=== PATIENT | male | born 1995 | race African-American/Black ===

== ENCOUNTER 2017-11-06 02:42 | Emergency (ER) | payer SELFPAY ==
[2017-11-06 03:16] LABS: ADD MAN DIFF? NO
[2017-11-06] MEDS: ONDANSETRON PF 4 MG/2 ML VIAL. IV (03:18)
[2017-11-06 03:19] LABS: BASO # 0.1 x10^3/uL (0.0-0.2); BASO % 1 % (0-3); EOS # 0.1 x10^3/uL (0.0-0.7); EOS % 1 % (0-3); HEMOGLOBIN 8.7 g/dL (13.0-17.5); LYMPH # 1.7 x10^3/uL (1.0-4.8); LYMPH % 16 % (24-48); MEAN CORPUSCULAR HEMOGLOBIN 30 pg (25-35); MEAN CORPUSCULAR HGB CONC 35 g/dL (31-37); MEAN CORPUSCULAR VOLUME 86 fL (79-100); MONO # 1.4 x10^3/uL (0.0-1.1); MONO % 13 % (0-9); NEUT # 7.9 x10^3uL (1.8-7.7); NEUT % 70 % (31-73); PLATELET COUNT 642 x10^3/uL (140-400); RED CELL DISTRIBUTION WIDTH 21.8 % (11.5-14.5); WHITE BLOOD COUNT 11.2 x10^3/uL (4.0-11.0)
[2017-11-06] MEDS: fentaNYL PF VIAL 100 MCG/2 ML VIAL IV ×2 (03:19→04:53)
[2017-11-06] MEDS: IV NORMAL SALINE 1000ML BAG 1,000 ML IV (03:22)
[2017-11-06 03:32] LABS: ETHANOL < 10 mg/dL (0-10)
[2017-11-06 03:35] LABS: ALBUMIN 3.4 g/dL (3.4-5.0); ALBUMIN/GLOBULIN RATIO 0.9 (1.0-1.7); ALK PHOS 130 U/L (46-116); ALT (SGPT) 20 U/L (16-63); ANION GAP 10 (6-14); AST (SGOT) 23 U/L (15-37); BLOOD UREA NITROGEN 3 mg/dL (8-26); BUN/CREATININE RATIO 5 (6-20); CALCIUM 8.9 mg/dL (8.5-10.1); CARBON DIOXIDE 26 mmol/L (21-32); CHLORIDE 101 mmol/L (98-107); CREATININE 0.6 mg/dL (0.7-1.3); GFR 171.8; GLUCOSE 125 mg/dL (70-99); LIPASE 58 U/L (73-393); SODIUM 137 mmol/L (136-145); TOTAL BILIRUBIN 1.6 mg/dL (0.2-1.0); TOTAL PROTEIN 7.4 g/dL (6.4-8.2)
[2017-11-06 03:38] LABS: POTASSIUM 2.9 mmol/L (3.5-5.1)
[2017-11-06 03:40] LABS: BILIRUBIN,URINE NEGATIVE (NEG); CLARITY,URINE CLEAR; COLOR,URINE YELLOW; GLUCOSE,URINE NEGATIVE (NEG); NITRITE,URINE NEGATIVE (NEG); PH,URINE 6.5; PROTEIN,URINE NEGATIVE (NEG-TRACE)
[2017-11-06 03:42] LABS: ANISOCYTOSIS MOD; MICROCYTOSIS SLIGHT; PLT ESTIMATE INCREASED (ADEQUATE); POLYCHROMASIA SLIGHT
[2017-11-06 03:43] LABS: SCHISTOCYTES OCC; SICKLE CELLS MOD; TARGET CELLS MOD; TEAR DROP CELLS FEW
[2017-11-06 03:45] LABS: BACTERIA,URINE 0 /HPF (0-FEW); RBC,URINE 0 /HPF (0-2); SQUAMOUS EPITHELIAL CELL,UR FEW /LPF
[2017-11-06 03:47] LABS: BARBITURATES NEG (NEG); BENZODIAZEPINES NEG (NEG); CANNABINOIDS POS (NEG); COCAINE NEG (NEG); METHADONE NEG (NEG); OPIATES POS (NEG); PHENCYCLIDINE NEG (NEG)
[2017-11-06 03:49] LABS: AMPHETAMINE/METHAMPHETAMINE NEG (NEG); ETHANOL, URINE NEG (NEG)
[2017-11-06 04:31] LABS: RETIC COUNT 1.8 % (0.5-2.5)
== END 2017-11-06 05:15 | disposition home or self-care (01) ==
LOC: ER 02:42
DX: D57.00 Hb-SS disease with crisis, unspecified (principal); F12.10 Cannabis abuse, uncomplicated
CPT/HCPCS: 36415; 80053; 80307; 81001; 83690; 85025; 85045; 96361; 96374; 96375; 96376; 99284-25; G0480; J2405; J3010; J7030

== ENCOUNTER 2017-11-06 19:24 | Emergency (ER) | payer SELFPAY ==
[2017-11-06 20:03] LABS: ADD MAN DIFF? NO
[2017-11-06] MEDS: MORPHINE SULFATE 10 MG/ML VIAL. IV (20:03)
[2017-11-06] MEDS: ONDANSETRON PF 4 MG/2 ML VIAL. IV (20:03)
[2017-11-06] MEDS: IV NORMAL SALINE 1000ML BAG 1,000 ML IV (20:03)
[2017-11-06 20:07] LABS: BASO # 0.1 x10^3/uL (0.0-0.2); BASO % 1 % (0-3); EOS % 0 % (0-3); HEMATOCRIT 25.1 % (39.0-53.0); HEMOGLOBIN 8.8 g/dL (13.0-17.5); LYMPH # 1.9 x10^3/uL (1.0-4.8); LYMPH % 18 % (24-48); MEAN CORPUSCULAR HEMOGLOBIN 30 pg (25-35); MEAN CORPUSCULAR HGB CONC 35 g/dL (31-37); MEAN CORPUSCULAR VOLUME 87 fL (79-100); MONO # 1.1 x10^3/uL (0.0-1.1); MONO % 11 % (0-9); NEUT # 7.4 x10^3uL (1.8-7.7); NEUT % 70 % (31-73); PLATELET COUNT 659 x10^3/uL (140-400); RED BLOOD COUNT 2.89 x10^6/uL (4.30-5.70); RED CELL DISTRIBUTION WIDTH 21.8 % (11.5-14.5); WHITE BLOOD COUNT 10.5 x10^3/uL (4.0-11.0)
[2017-11-06 20:08] LABS: RETIC COUNT 1.4 % (0.5-2.5)
[2017-11-06 20:12] LABS: ANION GAP 10 (6-14); BLOOD UREA NITROGEN 3 mg/dL (8-26); CALCIUM 9.1 mg/dL (8.5-10.1); CARBON DIOXIDE 29 mmol/L (21-32); CHLORIDE 102 mmol/L (98-107); CREATININE 0.5 mg/dL (0.7-1.3); GFR 256.5; GLUCOSE 100 mg/dL (70-99); POTASSIUM 3.2 mmol/L (3.5-5.1); SODIUM 141 mmol/L (136-145)
[2017-11-06 20:17] LABS: LACTATE DEHYDROGENASE 686 U/L (85-227)
[2017-11-06 20:40] LABS: PLT ESTIMATE INCREASED (ADEQUATE)
[2017-11-06 20:44] LABS: ANISOCYTOSIS MOD
[2017-11-06 20:45] LABS: POLYCHROMASIA PRESENT; SICKLE CELLS PRESENT
[2017-11-06 20:46] LABS: TARGET CELLS PRESENT
[2017-11-06 20:55] LABS: POIKILOCYTOSIS MOD; SCHISTOCYTES FEW; TEAR DROP CELLS OCC
[2017-11-06] MEDS: oxyCODONE/APAP 5/325 1 TAB TABLET PO (21:11)
== END 2017-11-06 21:10 | disposition home or self-care (01) ==
LOC: ER 19:24
DX: M54.6 Pain in thoracic spine (principal); F12.10 Cannabis abuse, uncomplicated
CPT/HCPCS: 36415; 80048; 83615; 85025; 85045; 96361; 96374; 96375; 99284-25; J2270; J2405; J7030

== ENCOUNTER 2017-11-13 17:56 | Emergency (ER) | payer SELFPAY ==
[2017-11-13 18:22] LABS: BASO # 0.1 x10^3/uL (0.0-0.2); BASO % 1 % (0-3); EOS % 0 % (0-3); HEMATOCRIT 24.7 % (39.0-53.0); HEMOGLOBIN 8.8 g/dL (13.0-17.5); LYMPH # 2.7 x10^3/uL (1.0-4.8); LYMPH % 27 % (24-48); MEAN CORPUSCULAR HEMOGLOBIN 31 pg (25-35); MEAN CORPUSCULAR HGB CONC 36 g/dL (31-37); MEAN CORPUSCULAR VOLUME 87 fL (79-100); MONO # 0.8 x10^3/uL (0.0-1.1); MONO % 8 % (0-9); NEUT # 6.4 x10^3uL (1.8-7.7); NEUT % 64 % (31-73); PLATELET COUNT 653 x10^3/uL (140-400); RED BLOOD COUNT 2.85 x10^6/uL (4.30-5.70); RETIC COUNT 3.6 % (0.5-2.5)
[2017-11-13 18:27] LABS: ADD MAN DIFF? NO
[2017-11-13] MEDS: ONDANSETRON PF 4 MG/2 ML VIAL. IV (18:41)
[2017-11-13] MEDS: fentaNYL PF VIAL 100 MCG/2 ML VIAL IV ×2 (18:42→19:39)
[2017-11-13 18:48] LABS: ANISOCYTOSIS MOD; PLT ESTIMATE INCREASED (ADEQUATE); POLYCHROMASIA SLIGHT; SCHISTOCYTES FEW; SICKLE CELLS FEW; TARGET CELLS FEW
[2017-11-13 18:51] LABS: ANION GAP 8 (6-14); BLOOD UREA NITROGEN 7 mg/dL (8-26); BUN/CREATININE RATIO 9 (6-20); CALCIUM 8.7 mg/dL (8.5-10.1); CARBON DIOXIDE 27 mmol/L (21-32); CHLORIDE 106 mmol/L (98-107); CREATININE 0.8 mg/dL (0.7-1.3); GFR 149.1; GLUCOSE 106 mg/dL (70-99); POTASSIUM 3.8 mmol/L (3.5-5.1); SODIUM 141 mmol/L (136-145)
[2017-11-13 18:55] LABS: ALBUMIN 3.7 g/dL (3.4-5.0); ALBUMIN/GLOBULIN RATIO 0.9 (1.0-1.7); ALK PHOS 145 U/L (46-116); ALT (SGPT) 14 U/L (16-63); AST (SGOT) 42 U/L (15-37); TOTAL BILIRUBIN 1.7 mg/dL (0.2-1.0); TOTAL PROTEIN 7.7 g/dL (6.4-8.2)
[2017-11-13 18:57] LABS: BILIRUBIN,URINE NEGATIVE (NEG); CLARITY,URINE CLEAR; COLOR,URINE YELLOW; GLUCOSE,URINE NEGATIVE (NEG); NITRITE,URINE NEGATIVE (NEG); PH,URINE 8.5; PROTEIN,URINE NEGATIVE (NEG-TRACE)
[2017-11-13 19:13] LABS: BACTERIA,URINE 0 /HPF (0-FEW); RBC,URINE 0 /HPF (0-2); WBC,URINE 0 /HPF (0-4)
[2017-11-13] MEDS: oxyCODONE IR 5 MG TABLET PO (19:21)
== END 2017-11-13 20:27 | disposition home or self-care (01) ==
LOC: ER 17:56
DX: D57.00 Hb-SS disease with crisis, unspecified (principal); F12.10 Cannabis abuse, uncomplicated
CPT/HCPCS: 36415; 80053; 81001; 85025; 85045; 96374; 96375; 96376; 99284-25; J2405; J3010

== ENCOUNTER 2017-12-04 08:04 | Emergency (ER) | payer SELFPAY ==
[2017-12-04 08:56] LABS: BILIRUBIN,URINE NEGATIVE (NEG); CLARITY,URINE CLEAR; COLOR,URINE AMBER; GLUCOSE,URINE NEGATIVE (NEG); NITRITE,URINE NEGATIVE (NEG); PROTEIN,URINE NEGATIVE (NEG-TRACE)
[2017-12-04 08:58] LABS: ADD MAN DIFF? NO
[2017-12-04] MEDS: fentaNYL PF VIAL 100 MCG/2 ML VIAL IV ×2 (09:02→10:54)
[2017-12-04] MEDS: ONDANSETRON PF 4 MG/2 ML VIAL. IV (09:02)
[2017-12-04] MEDS: IV NORMAL SALINE 1000ML BAG 1,000 ML IV (09:02)
[2017-12-04 09:05] LABS: BASO # 0.1 x10^3/uL (0.0-0.2); BASO % 1 % (0-3); EOS # 0.1 x10^3/uL (0.0-0.7); EOS % 2 % (0-3); HEMATOCRIT 25.4 % (39.0-53.0); HEMOGLOBIN 9.1 g/dL (13.0-17.5); LYMPH % 37 % (24-48); MEAN CORPUSCULAR HEMOGLOBIN 32 pg (25-35); MEAN CORPUSCULAR HGB CONC 36 g/dL (31-37); MEAN CORPUSCULAR VOLUME 90 fL (79-100); MONO # 0.7 x10^3/uL (0.0-1.1); MONO % 13 % (0-9); NEUT # 2.5 x10^3uL (1.8-7.7); NEUT % 47 % (31-73); PLATELET COUNT 427 x10^3/uL (140-400); RED BLOOD COUNT 2.84 x10^6/uL (4.30-5.70); RED CELL DISTRIBUTION WIDTH 25.4 % (11.5-14.5); WHITE BLOOD COUNT 5.4 x10^3/uL (4.0-11.0)
[2017-12-04 09:10] LABS: AMORPHOUS SEDIMENT,UR PRESENT /HPF; BACTERIA,URINE 0 /HPF (0-FEW); HYALINE CASTS, URINE FEW /HPF; RBC,URINE 0 /HPF (0-2); SQUAMOUS EPITHELIAL CELL,UR MOD /LPF; WBC,URINE 0 /HPF (0-4)
[2017-12-04 09:14] LABS: RETIC COUNT 1.9 % (0.5-2.5)
[2017-12-04 09:17] LABS: ANION GAP 11 (6-14); BLOOD UREA NITROGEN 7 mg/dL (8-26); BUN/CREATININE RATIO 12 (6-20); CALCIUM 9.1 mg/dL (8.5-10.1); CARBON DIOXIDE 24 mmol/L (21-32); CHLORIDE 104 mmol/L (98-107); CREATININE 0.6 mg/dL (0.7-1.3); GFR 207.8; GLUCOSE 113 mg/dL (70-99); POTASSIUM 3.5 mmol/L (3.5-5.1); SODIUM 139 mmol/L (136-145)
[2017-12-04 09:22] LABS: ALBUMIN 4.2 g/dL (3.4-5.0); ALBUMIN/GLOBULIN RATIO 1.1 (1.0-1.7); ALK PHOS 146 U/L (46-116); ALT (SGPT) 27 U/L (16-63); AST (SGOT) 45 U/L (15-37); TOTAL BILIRUBIN 2.5 mg/dL (0.2-1.0); TOTAL PROTEIN 8.1 g/dL (6.4-8.2)
[2017-12-04 10:46] LABS: PLT ESTIMATE INCREASED (ADEQUATE)
[2017-12-04 10:47] LABS: ANISOCYTOSIS MOD; OVALOCYTES PRESENT; POIKILOCYTOSIS MOD; SICKLE CELLS PRESENT; TARGET CELLS PRESENT
[2017-12-04 10:48] LABS: SCHISTOCYTES OCC
== END 2017-12-04 11:06 | disposition home or self-care (01) ==
LOC: ER 08:04
DX: D57.00 Hb-SS disease with crisis, unspecified (principal); F12.10 Cannabis abuse, uncomplicated; M54.5 Low back pain
CPT/HCPCS: 36415; 80053; 81001; 85025; 85045; 96361; 96374; 96375; 96376; 99284-25; J2405; J3010; J7030

== ENCOUNTER 2017-12-07 16:39 | Emergency (ER) | payer SELFPAY ==
[2017-12-07 18:00] LABS: BILIRUBIN,URINE NEGATIVE (NEG); CLARITY,URINE CLEAR; COLOR,URINE YELLOW; GLUCOSE,URINE NEGATIVE (NEG); NITRITE,URINE NEGATIVE (NEG); PROTEIN,URINE NEGATIVE (NEG-TRACE); UROBILINOGEN,URINE 0.2 mg/dL (0.2 mg/dL)
[2017-12-07 18:08] LABS: BASO # 0.1 x10^3/uL (0.0-0.2); BASO % 1 % (0-3); EOS # 0.1 x10^3/uL (0.0-0.7); EOS % 2 % (0-3); HEMATOCRIT 23.5 % (39.0-53.0); HEMOGLOBIN 8.5 g/dL (13.0-17.5); LYMPH # 2.4 x10^3/uL (1.0-4.8); LYMPH % 47 % (24-48); MEAN CORPUSCULAR HEMOGLOBIN 33 pg (25-35); MEAN CORPUSCULAR HGB CONC 36 g/dL (31-37); MEAN CORPUSCULAR VOLUME 91 fL (79-100); MONO # 0.9 x10^3/uL (0.0-1.1); MONO % 18 % (0-9); NEUT # 1.5 x10^3uL (1.8-7.7); NEUT % 31 % (31-73); PLATELET COUNT 375 x10^3/uL (140-400); RED BLOOD COUNT 2.59 x10^6/uL (4.30-5.70)
[2017-12-07] MEDS: IV NORMAL SALINE 1000ML BAG 1,000 ML IV (18:10)
[2017-12-07 18:11] LABS: BACTERIA,URINE 0 /HPF (0-FEW); RBC,URINE 0 /HPF (0-2); SQUAMOUS EPITHELIAL CELL,UR FEW /LPF; WBC,URINE OCC /HPF (0-4)
[2017-12-07] MEDS: ONDANSETRON PF 4 MG/2 ML VIAL. IV (18:11)
[2017-12-07 18:12] LABS: RETIC COUNT 1.9 % (0.5-2.5)
[2017-12-07] MEDS: MORPHINE SULFATE 4 MG/ML DISP.SYRIN. IV/SQ (18:12)
[2017-12-07 18:13] LABS: ADD MAN DIFF? YES
[2017-12-07 18:17] LABS: ANION GAP 8 (6-14); BLOOD UREA NITROGEN 4 mg/dL (8-26); BUN/CREATININE RATIO 7 (6-20); CALCIUM 8.7 mg/dL (8.5-10.1); CARBON DIOXIDE 26 mmol/L (21-32); CHLORIDE 107 mmol/L (98-107); CREATININE 0.6 mg/dL (0.7-1.3); GFR 207.8; GLUCOSE 90 mg/dL (70-99); POTASSIUM 3.5 mmol/L (3.5-5.1); SODIUM 141 mmol/L (136-145)
[2017-12-07 18:25] LABS: ALBUMIN 3.8 g/dL (3.4-5.0); ALBUMIN/GLOBULIN RATIO 1.2 (1.0-1.7); ALK PHOS 126 U/L (46-116); ALT (SGPT) 18 U/L (16-63); AST (SGOT) 37 U/L (15-37); TOTAL BILIRUBIN 2.1 mg/dL (0.2-1.0)
[2017-12-07] MEDS: oxyCODONE/APAP 5/325 1 TAB TABLET PO (19:42)
[2017-12-07 20:05] LABS: % EOS 1 % (0-5); % LYMPHS 53 % (24-48); % MONOS 15 % (0-10); % SEGS 31 % (35-66)
[2017-12-07 20:16] LABS: PLT ESTIMATE ADEQUATE (ADEQUATE)
[2017-12-07 20:17] LABS: ANISOCYTOSIS MOD; OVALOCYTES FEW; POIKILOCYTOSIS MOD
[2017-12-07 20:27] LABS: SICKLE CELLS MOD; TARGET CELLS FEW
== END 2017-12-07 19:42 | disposition home or self-care (01) ==
LOC: ER 16:39
DX: D57.00 Hb-SS disease with crisis, unspecified (principal); F12.10 Cannabis abuse, uncomplicated
CPT/HCPCS: 36415; 80053; 81001; 85007; 85025; 85045; 96361; 96374; 96375; 99285-25; J2270; J2405; J7030

== ENCOUNTER 2017-12-15 10:33 | Emergency (ER) | payer SELFPAY ==
[2017-12-15] MEDS: fentaNYL PF VIAL 100 MCG/2 ML VIAL IM (11:02)
== END 2017-12-15 11:06 | disposition home or self-care (01) ==
LOC: ER 10:33
DX: M54.5 Low back pain (principal); D57.00 Hb-SS disease with crisis, unspecified; F12.10 Cannabis abuse, uncomplicated
CPT/HCPCS: 96372; 99283; J3010

== ENCOUNTER 2018-01-05 16:41 | Emergency (ER) | payer BC ==
[2018-01-05] MEDS: fentaNYL PF VIAL 100 MCG/2 ML VIAL IV ×2 (18:04→19:00)
== END 2018-01-05 19:36 | disposition home or self-care (01) ==
LOC: ER 16:41
DX: M54.5 Low back pain (principal); G89.29 Other chronic pain; D57.1 Sickle-cell disease without crisis; F12.10 Cannabis abuse, uncomplicated
CPT/HCPCS: 96374; 96376; 99284-25; J3010

== ENCOUNTER 2018-01-17 10:16 | Emergency (ER) | payer BC ==
[2018-01-17] MEDS: ONDANSETRON PF 4 MG/2 ML VIAL. IV (11:04)
[2018-01-17] MEDS: MORPHINE SULFATE 10 MG/ML VIAL. IV (11:04)
[2018-01-17 11:05] LABS: BARBITURATES NEG (NEG); BENZODIAZEPINES NEG (NEG); BILIRUBIN,URINE NEGATIVE (NEG); CANNABINOIDS POS (NEG); CLARITY,URINE CLEAR; COCAINE NEG (NEG); COLOR,URINE AMBER; GLUCOSE,URINE NEGATIVE (NEG); METHADONE NEG (NEG); NITRITE,URINE NEGATIVE (NEG); OPIATES NEG (NEG); PHENCYCLIDINE NEG (NEG); PROTEIN,URINE NEGATIVE (NEG-TRACE)
[2018-01-17] MEDS: IV NORMAL SALINE 1000ML BAG 1,000 ML IV (11:05)
[2018-01-17 11:06] LABS: AMPHETAMINE/METHAMPHETAMINE NEG (NEG); ETHANOL, URINE NEG (NEG)
[2018-01-17 11:08] LABS: ADD MAN DIFF? YES; BASO # 0.2 x10^3/uL (0.0-0.2); BASO % 2 % (0-3); EOS # 0.1 x10^3/uL (0.0-0.7); EOS % 2 % (0-3); HEMATOCRIT 22.4 % (39.0-53.0); LYMPH # 2.3 x10^3/uL (1.0-4.8); LYMPH % 31 % (24-48); MEAN CORPUSCULAR HEMOGLOBIN 32 pg (25-35); MEAN CORPUSCULAR HGB CONC 36 g/dL (31-37); MEAN CORPUSCULAR VOLUME 90 fL (79-100); MONO # 1.1 x10^3/uL (0.0-1.1); MONO % 15 % (0-9); NEUT # 3.6 x10^3uL (1.8-7.7); NEUT % 50 % (31-73); PLATELET COUNT 301 x10^3/uL (140-400); RED BLOOD COUNT 2.48 x10^6/uL (4.30-5.70); RED CELL DISTRIBUTION WIDTH 20.5 % (11.5-14.5); WHITE BLOOD COUNT 7.3 x10^3/uL (4.0-11.0)
[2018-01-17 11:12] LABS: ANION GAP 9 (6-14); BLOOD UREA NITROGEN 5 mg/dL (8-26); BUN/CREATININE RATIO 8 (6-20); CALCIUM 8.4 mg/dL (8.5-10.1); CARBON DIOXIDE 27 mmol/L (21-32); CHLORIDE 108 mmol/L (98-107); CREATININE 0.6 mg/dL (0.7-1.3); GFR 207.8; GLUCOSE 90 mg/dL (70-99); POTASSIUM 3.3 mmol/L (3.5-5.1); SODIUM 144 mmol/L (136-145)
[2018-01-17 11:13] LABS: ETHANOL < 10 mg/dL (0-10)
[2018-01-17 11:18] LABS: ALBUMIN 3.8 g/dL (3.4-5.0); ALBUMIN/GLOBULIN RATIO 1.3 (1.0-1.7); ALK PHOS 98 U/L (46-116); ALT (SGPT) 18 U/L (16-63); AST (SGOT) 34 U/L (15-37); TOTAL BILIRUBIN 3.1 mg/dL (0.2-1.0); TOTAL PROTEIN 6.8 g/dL (6.4-8.2)
[2018-01-17 11:21] LABS: AMORPHOUS SEDIMENT,UR PRESENT /HPF; BACTERIA,URINE 0 /HPF (0-FEW); RBC,URINE 0 /HPF (0-2); SQUAMOUS EPITHELIAL CELL,UR FEW /LPF
[2018-01-17 13:23] LABS: % BANDS 2 % (0-9); % BASOS 1 % (0-3); % EOS 2 % (0-5); % LYMPHS 27 % (24-48); % MONOS 5 % (0-10); % MYELOS 1 % (0-0); % SEGS 62 % (35-66); ANISOCYTOSIS MOD; NUCLEATED RBC 5; PLT ESTIMATE ADEQUATE (ADEQUATE); POIKILOCYTOSIS PRESENT; SCHISTOCYTES OCC; SICKLE CELLS FEW; TARGET CELLS OCC
== END 2018-01-17 11:45 | disposition home or self-care (01) ==
LOC: ER 11:45
DX: D57.00 Hb-SS disease with crisis, unspecified (principal); F12.10 Cannabis abuse, uncomplicated; Z79.899 Other long term (current) drug therapy
CPT/HCPCS: 36415; 80053; 80307; 81001; 85007; 85025; 85045; 96374; 96375; 99284; G0480; J2270; J2405; J7030

== ENCOUNTER 2018-02-25 10:39 | Emergency (ER) | payer BC ==
[2018-02-25] MEDS: oxyCODONE/APAP 10/325 1 TAB TABLET PO (12:00)
[2018-02-25 12:05] LABS: BILIRUBIN,URINE NEGATIVE (NEG); CLARITY,URINE CLEAR; COLOR,URINE YELLOW; GLUCOSE,URINE NEGATIVE (NEG); NITRITE,URINE NEGATIVE (NEG); PH,URINE 7.5; PROTEIN,URINE NEGATIVE (NEG-TRACE)
[2018-02-25 12:11] LABS: BACTERIA,URINE FEW /HPF (0-FEW); RBC,URINE 0 /HPF (0-2); SQUAMOUS EPITHELIAL CELL,UR OCC /LPF; WBC,URINE OCC /HPF (0-4)
[2018-02-25 12:18] LABS: ADD MAN DIFF? NO
[2018-02-25 12:25] LABS: BASO # 0.1 x10^3/uL (0.0-0.2); BASO % 1 % (0-3); EOS # 0.1 x10^3/uL (0.0-0.7); EOS % 2 % (0-3); HEMATOCRIT 26.1 % (39.0-53.0); HEMOGLOBIN 9.3 g/dL (13.0-17.5); LYMPH # 2.8 x10^3/uL (1.0-4.8); LYMPH % 33 % (24-48); MEAN CORPUSCULAR HEMOGLOBIN 32 pg (25-35); MEAN CORPUSCULAR HGB CONC 36 g/dL (31-37); MEAN CORPUSCULAR VOLUME 90 fL (79-100); MONO % 12 % (0-9); NEUT # 4.4 x10^3uL (1.8-7.7); NEUT % 52 % (31-73); PLATELET COUNT 294 x10^3/uL (140-400); WHITE BLOOD COUNT 8.5 x10^3/uL (4.0-11.0)
[2018-02-25 12:35] LABS: ANION GAP 9 (6-14); BLOOD UREA NITROGEN 4 mg/dL (8-26); BUN/CREATININE RATIO 7 (6-20); CALCIUM 8.8 mg/dL (8.5-10.1); CARBON DIOXIDE 27 mmol/L (21-32); CHLORIDE 103 mmol/L (98-107); CREATININE 0.6 mg/dL (0.7-1.3); GFR 207.8; GLUCOSE 90 mg/dL (70-99); POTASSIUM 3.8 mmol/L (3.5-5.1); SODIUM 139 mmol/L (136-145)
[2018-02-25] MEDS: IV NORMAL SALINE 1000ML BAG 1,000 ML IV (12:38)
[2018-02-25 12:41] LABS: TROPONINI < 0.017 ng/mL (0.000-0.055)
[2018-02-25 12:41] LABS: ALBUMIN 4.5 g/dL (3.4-5.0); ALBUMIN/GLOBULIN RATIO 1.3 (1.0-1.7); ALK PHOS 100 U/L (46-116); ALT (SGPT) 23 U/L (16-63); AST (SGOT) 37 U/L (15-37); LACTATE DEHYDROGENASE 946 U/L (85-227); TOTAL BILIRUBIN 2.3 mg/dL (0.2-1.0); TOTAL PROTEIN 7.9 g/dL (6.4-8.2)
[2018-02-25 12:44] LABS: LACTIC ACID 0.7 mmol/L (0.4-2.0)
[2018-02-25 14:53] LABS: RETIC COUNT 1.5 % (0.5-2.5)
[2018-03-02 06:21] LABS: ANTI RETICULIN ANTIBODY Negative titer (Neg:<1:2.5)
== END 2018-02-25 15:35 | disposition left against medical advice (07) ==
LOC: ER 10:39
DX: D57.1 Sickle-cell disease without crisis (principal); R07.89 Other chest pain
CPT/HCPCS: 36415; 71046; 80053; 81001; 83605; 83615; 84484; 85025; 85045; 86317; 93005; 99285-25; J7030

== ENCOUNTER 2018-06-14 | Emergency (ER) | payer BC ==
[~2018-06-14] VITALS: Ht 175.3 cm; Wt 72.1 kg
[~2018-06-14] MED LIST: HYDR-971 PO; OXYC-323 PO; OXYC15TA PO
[2018-06-14 00:10] VITALS: BP 121/57
[2018-06-14] MEDS ORDERED: fentaNYL PF VIAL 100 MCG/2 ML VIAL IM ONE (00:45)
[2018-06-14] MEDS ORDERED: oxyCODONE IR 5 MG TABLET PO ONE (00:45)
--- NOTE | 2018-06-14 03:49 | PHYS DOC ---
Past Medical History Past Medical History: Sickle Cell Disease, Other Additional Past Medical Histor: AVASCULAR NECROSIS OF R HIP Past Surgical History: Other Additional Past Surgical Histo: L HIP BONE GRAFT Alcohol Use: None Drug Use: Marijuana Adult General Chief Complaint Chief Complaint: PAIN CONTROL HPI HPI Patient is a 22 year old male who presents with chronic pain. Patient is known to have sickle cell disease. He has an appointment with his physician tomorrow. He does not have any oxycodone at home for pain control. This evening , he is not requesting a refill of medications. Rather, he is requesting some medications in the ER to help him get through the night. He complains of pain in the left shoulder and left scapular area. This pain is chronic and not new, acute, or different from his chronic pain. He normally gets oxycodone 10 mg tablet prescriptions filled by his doctor. He has no fever or chills. He is acute sickle cell crisis this evening. No chest pain or shortness of breath. Review of Systems Review of Systems Constitutional: Denies fever or chills HENT: Denies Respiratory: Denies Cardiovascular: No additional information Musculoskeletal: Denies back pain Integument: Denies rash or skin lesions Neurologic: Denies headache All other systems were reviewed and found to be within normal limits, except as documented in this note. Current Medications Current Medications Current Medications Medications (Trade) Dose Ordered Sig/Glenis Start Time Stop Time Status Last Admin Dose Admin Fentanyl Citrate (Fentanyl 2ml Vial) 100 mcg 1X ONCE 06/14/18 00:45 06/14/18 00:46 DC 06/14/18 00:54 100 MCG Oxycodone HCl (Roxicodone) 10 mg 1X ONCE 06/14/18 00:45 06/14/18 00:46 DC 06/14/18 00:53 10 MG Allergies Allergies Allergies Coded Allergies Type Severity Reaction Last Updated Verified No Known Drug Allergies 11/06/17 No Physical Exam Physical Exam Constitutional: Well developed, well nourished, no acute distress HENT: Normocephalic, atraumatic, bilateral external ears normal, oropharynx moist Neck: Normal range of motion Cardiovascular:Heart rate regular rhythm, no murmur Lungs & Thorax: Bilateral breath sounds clear to auscultation Skin: Warm, dry, no erythema, no rash Extremities: Normal exam of left upper extremity and left shoulder Neurologic: Alert and oriented X 3 Psychologic: Affect normal Current Patient Data Vital Signs Vital Signs Date Time Temp Pulse Resp B/P (MAP) Pulse Ox O2 Delivery O2 Flow Rate FiO2 06/14/18 00:54 18 06/14/18 00:53 99 Room Air 06/14/18 00:10 100.0 82 121/57 (78) 100.0 EKG EKG [] Radiology/Procedures Radiology/Procedures [] Course & Med Decision Making Course & Med Decision Making Pertinent Labs and Imaging studies reviewed. (See chart for details) Patient is seen briefly in the fast track. He is not requesting med refill. He is given 100 mcg of fentanyl IM and 10 mg of oxycodone by mouth in the ER and discharged to home. He will f/u with his primary care physician tomorrow. he is accompanied by a family member who is driving this evening. Dragon Disclaimer Dragon Disclaimer This electronic medical record was generated, in whole or in part, using a voice recognition dictation system. Departure Departure Impression: Primary Impression: Chronic pain Disposition: 01 HOME, SELF-CARE Condition: GOOD Patient Instructions: Chronic Pain SAVANA CARDONA DO Jun 14, 2018 03:49
== END 2018-06-14 00:58 | disposition home or self-care (01) ==
LOC: ER
DX: G89.29 Other chronic pain (principal); M25.512 Pain in left shoulder; D57.00 Hb-SS disease with crisis, unspecified
CPT/HCPCS: 96372; 99283; J3010

== ENCOUNTER 2018-08-05 19:15 | Emergency (ER) | payer BC ==
[~2018-08-05] VITALS: Ht 175.3 cm; Wt 72.1 kg
[~2018-08-05 19:15] MED LIST changes: +HYDR-3164 PO; -HYDR-971 PO; -OXYC-323 PO; +OXYC1TAB15 PO
[2018-08-05] MEDS ORDERED: ONDANSETRON PF 4 MG/2 ML VIAL. IV ONE (19:30)
[2018-08-05] MEDS ORDERED: fentaNYL PF VIAL 100 MCG/2 ML VIAL IV ONE ×3 (19:30→20:20)
[2018-08-05] MEDS ORDERED: diphenhydrAMINE HCL 25 MG CAPSULE PO ONE (19:30)
[2018-08-05] MEDS ORDERED: IV NORMAL SALINE 1000ML BAG 1,000 ML IV ONE (19:45)
--- NOTE | 2018-08-05 19:45 | PHYS DOC ---
Past Medical History Past Medical History: Sickle Cell Disease, Other Additional Past Medical Histor: AVASCULAR NECROSIS OF R HIP Past Surgical History: Other Additional Past Surgical Histo: L HIP BONE GRAFT Alcohol Use: None Drug Use: Marijuana Adult General Chief Complaint Chief Complaint: BACK PAIN - NO INJURY HPI HPI Patient is a 23 year old male who presents with sickle cell crisis. Patient complains of pain primarily in the lower back. He has been having worsening symptoms over the last 2 days. Patient states his last ER admission for sickle cell crisis was on July 25. He normally goes to [facility] where he is also followed in the sickle cell clinic there. No fever or chills. He states the symptoms feel exactly like her normal sickle cell pain. No chest pain. No shortness of breath. He does use oxycodone at home but states the medication was not working for him over the last day. Review of Systems Review of Systems Constitutional: Denies fever or chills Eyes: Denies change in visual acuity HENT: Denies nasal congestion Respiratory: Denies cough or shortness of breath Cardiovascular: No additional information not addressed in HPI GI: Denies abdominal pain, nausea : Denies dysuria Musculoskeletal: Denies back pain Integument: Denies rash or skin lesions Neurologic: Denies headache Endocrine: Denies polyuria All other systems were reviewed and found to be within normal limits, except as documented in this note. Current Medications Current Medications Current Medications Medications (Trade) Dose Ordered Sig/Glenis Start Time Stop Time Status Last Admin Dose Admin Diphenhydramine HCl (Benadryl) 50 mg 1X ONCE 08/05/18 19:30 08/05/18 19:34 DC 08/05/18 19:52 50 MG Fentanyl Citrate (Fentanyl 2ml Vial) 100 mcg 1X ONCE 08/05/18 20:20 08/05/18 20:21 DC 08/05/18 20:34 100 MCG Ondansetron HCl (Zofran) 4 mg 1X ONCE 08/05/18 19:30 08/05/18 19:34 DC 08/05/18 19:52 4 MG Sodium Chloride 1,000 ml @ 1,000 mls/hr 1X ONCE 08/05/18 19:45 08/05/18 20:44 DC 08/05/18 19:50 1,000 MLS/HR Allergies Allergies Allergies Coded Allergies Type Severity Reaction Last Updated Verified No Known Drug Allergies 11/06/17 No Physical Exam Physical Exam Constitutional: Well developed, well nourished, no acute distress, non-toxic appearance HENT: Normocephalic, atraumatic, bilateral external ears normal, oropharynx moist Eyes: PERRLA, EOMI, conjunctiva normal Neck: Normal range of motion, no tenderness Cardiovascular:Heart rate regular rhythm, no murmur Lungs & Thorax: Bilateral breath sounds clear to auscultation Abdomen: Bowel sounds normal, soft, no tenderness Skin: Warm, dry, no erythema, no rash Back: No tenderness Extremities: No tenderness Neurologic: Alert and oriented X 3 Psychologic: Affect normal Current Patient Data Vital Signs Vital Signs Date Time Temp Pulse Resp B/P (MAP) Pulse Ox O2 Delivery O2 Flow Rate FiO2 08/05/18 19:31 98.5 82 18 114/68 (83) 99 Room Air 98.5 EKG EKG [] Radiology/Procedures Radiology/Procedures [] Course & Med Decision Making Course & Med Decision Making Pertinent Labs and Imaging studies reviewed. (See chart for details) Patient was evaluated immediately on arrival to his room. The patient normally goes to [facility]. I am very well acquainted with the protocol that he is used to. Ordinarily, he would receive 3 doses of opiate pain medication in an attempt to break his sickle cell crisis pain. IV fluids also. After 3 doses of medication, the patient will either be admitted to the hospital or discharged if he is feeling improved. His review of systems is negative for any red flag complaints. This seems like a normal baseline crisis for him. Plan this evening is to give 3 doses of fentanyl 20 minutes apart. Patient will be reevaluated at that time for pain control. By mouth Benadryl's also ordered and Zofran for nausea. 20:55: Patient currently feeling much improved. He has a friend present to drive him home. His vital signs are normal. He has normal oxygen saturations. Plan is for discharge home. He is advised to come back to the ER for any new or worsening symptoms. Otherwise, follow up at [facility] where he normally follows in the sickle cell clinic. Dragon Disclaimer Dragon Disclaimer This electronic medical record was generated, in whole or in part, using a voice recognition dictation system. Departure Departure Disposition: HOME, SELF-CARE Condition: IMPROVED Referrals: UNKNOWN PCP NAME (PCP) CARDONA,SAVANA L DO Aug 05, 2018 19:45
[2018-08-05 20:30] VITALS: BP 112/68
== END 2018-08-05 21:07 | disposition home or self-care (01) ==
LOC: ER 19:15
DX: D57.00 Hb-SS disease with crisis, unspecified (principal)
CPT/HCPCS: 96374; 96375; 96376; 99283; J2405; J3010; J7030; Q0163

== ENCOUNTER 2018-08-25 22:34 | Emergency (ER) | payer BC ==
[~2018-08-25] VITALS: Ht 175.3 cm; Wt 72.1 kg
[2018-08-25 22:49] VITALS: BP 126/77
--- NOTE | 2018-08-25 23:13 | PHYS DOC ---
Past Medical History Past Medical History: Sickle Cell Disease, Other Additional Past Medical Histor: AVASCULAR NECROSIS OF R HIP Past Surgical History: Other Additional Past Surgical Histo: L HIP BONE GRAFT Smoking: Cigarettes Alcohol Use: None Drug Use: Marijuana Adult General Chief Complaint Chief Complaint: PAIN CONTROL HPI HPI Patient is a 23-year-old -[place] male who presents to the emergency department for evaluation. He states that for the past 24 hours he has been having pain in his lower back in his thighs anteriorly bilaterally, similar to his prior sickle cell pain. 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 However he did just get off work this evening. He has not had any chest pain or shortness of breath, or cough. He has not had any fevers or chills, numbness, or weakness. There are no alleviating or exacerbating factors to his symptoms. Review of Systems Review of Systems Constitutional: Denies fever or chills [] Eyes: Denies change in visual acuity, redness, or eye pain [] HENT: Denies nasal congestion or sore throat [] Respiratory: Denies cough or shortness of breath [] Cardiovascular: The patient denies any shortness of breath, chest pain, palpitations, or orthopnea [] GI: Denies abdominal pain, nausea, vomiting, bloody stools or diarrhea [] : Denies dysuria or hematuria [] Musculoskeletal: Denies upper back pain or joint pain [] Integument: Denies rash or skin lesions [] Neurologic: Denies headache, focal weakness or sensory changes [] Endocrine: Denies polyuria or polydipsia [] All other systems were reviewed and found to be within normal limits, except as documented in this note. Current Medications Current Medications Current Medications Medications (Trade) Dose Ordered Sig/Glenis Start Time Stop Time Status Last Admin Dose Admin Oxycodone HCl (Roxicodone) 10 mg 1X ONCE 08/25/18 23:30 08/25/18 23:31 DC 08/25/18 23:21 10 MG Sodium Chloride 1,000 ml @ 1,000 mls/hr 1X ONCE 08/25/18 23:30 08/26/18 00:29 08/25/18 23:21 1,000 MLS/HR Allergies Allergies Allergies Coded Allergies Type Severity Reaction Last Updated Verified No Known Drug Allergies 11/06/17 No Physical Exam Physical Exam PHYSICAL EXAM: CONSTITUTIONAL: Well developed, well nourished HEAD: normocephalic, atraumatic EENT: PERRL, EOMI. Conjunctivae normal color, sclerae non-icteric; moist mucous membranes. NECK: Supple, non-tender; no meningismus. LUNGS: Lungs CTA, breathing even and unlabored. Normal air movement. HEART: Regular rate and rhythm, no murmur CHEST: No deformity; non-tender ABDOMEN: The abdomen is soft, and non-tender, no masses or bruits. EXTREM: Normal ROM; no deformity, no calf tenderness. Normal pulses palpable in all extremities. There is no pedal edema. SKIN: No rash; no diaphoresis NEURO: Alert; normal speech and cognition; CN's grossly intact; strength grossly intact without focal deficit. BACK: No CVA TTP. Current Patient Data Vital Signs Vital Signs Date Time Temp Pulse Resp B/P (MAP) Pulse Ox O2 Delivery O2 Flow Rate FiO2 08/25/18 22:49 98.7 75 18 126/77 (93) 96 Room Air 98.7 Lab Values Laboratory Tests Test 08/25/18 23:15 White Blood Count 6.4 x10^3/uL (4.0-11.0) Red Blood Count 2.65 x10^6/uL (4.30-5.70) L Hemoglobin 9.0 g/dL (13.0-17.5) L Hematocrit 24.5 % (39.0-53.0) L Mean Corpuscular Volume 93 fL (79-100) Mean Corpuscular Hemoglobin 34 pg (25-35) Mean Corpuscular Hemoglobin Concent 37 g/dL (31-37) Red Cell Distribution Width 23.7 % (11.5-14.5) H Platelet Count 353 x10^3/uL (140-400) Neutrophils (%) (Auto) 37 % (31-73) Lymphocytes (%) (Auto) 45 % (24-48) Monocytes (%) (Auto) 15 % (0-9) H Eosinophils (%) (Auto) 2 % (0-3) Basophils (%) (Auto) 1 % (0-3) Neutrophils # (Auto) 2.4 x10^3uL (1.8-7.7) Lymphocytes # (Auto) 2.9 x10^3/uL (1.0-4.8) Monocytes # (Auto) 1.0 x10^3/uL (0.0-1.1) Eosinophils # (Auto) 0.1 x10^3/uL (0.0-0.7) Basophils # (Auto) 0.1 x10^3/uL (0.0-0.2) Platelet Estimate Adequate (ADEQUATE) Polychromasia Slight Anisocytosis Marked Sickle Cells Mod Schistocytes Occ Reticulocyte Count (auto) 2.4 % (0.5-2.5) Sodium Level 142 mmol/L (136-145) Potassium Level 3.1 mmol/L (3.5-5.1) L Chloride Level 104 mmol/L (98-107) Carbon Dioxide Level 26 mmol/L (21-32) Anion Gap 12 (6-14) Blood Urea Nitrogen 7 mg/dL (8-26) L Creatinine 0.8 mg/dL (0.7-1.3) Estimated GFR (Cockcroft-Gault) 147.7 BUN/Creatinine Ratio 9 (6-20) Glucose Level 121 mg/dL (70-99) H Calcium Level 8.5 mg/dL (8.5-10.1) Total Bilirubin 2.3 mg/dL (0.2-1.0) H Aspartate Amino Transferase (AST) 37 U/L (15-37) Alanine Aminotransferase (ALT) 21 U/L (16-63) Alkaline Phosphatase 68 U/L (46-116) Creatine Kinase 68 U/L (39-308) Total Protein 7.2 g/dL (6.4-8.2) Albumin 3.9 g/dL (3.4-5.0) Albumin/Globulin Ratio 1.2 (1.0-1.7) Laboratory Tests 08/25/18 23:15 Laboratory Tests 08/25/18 23:15 EKG EKG [] Radiology/Procedures Radiology/Procedures [ER physician preliminary chest x-ray interpretation: No acute disease.] Course & Med Decision Making Course & Med Decision Making Pertinent Labs and Imaging studies reviewed. (See chart for details) [12:15 AM:]Patient remains stable. I discussed test results, the need for close follow-up, and return precautions. His labs are similar to baseline. His pain is improved . Dragon Disclaimer Dragon Disclaimer This electronic medical record was generated, in whole or in part, using a voice recognition dictation system. Departure Departure Impression: Primary Impression: Sickle cell pain crisis Disposition: HOME, SELF-CARE Condition: STABLE Referrals: UNKNOWN PCP NAME (PCP) Patient Instructions: Sickle Cell Anemia, Sickle Cell Pain Crisis Additional Instructions: Follow-up with your industrial gas fitter for further evaluation and treatment.. ANNA AMOR MD Aug 25, 2018 23:13
[2018-08-25 23:26] LABS: BASO # 0.1 x10^3/uL (0.0-0.2); BASO % 1 % (0-3); EOS # 0.1 x10^3/uL (0.0-0.7); EOS % 2 % (0-3); HEMATOCRIT 24.5 % (39.0-53.0); LYMPH # 2.9 x10^3/uL (1.0-4.8); LYMPH % 45 % (24-48); MEAN CORPUSCULAR HEMOGLOBIN 34 pg (25-35); MEAN CORPUSCULAR HGB CONC 37 g/dL (31-37); MEAN CORPUSCULAR VOLUME 93 fL (79-100); MONO % 15 % (0-9); NEUT # 2.4 x10^3uL (1.8-7.7); NEUT % 37 % (31-73); PLATELET COUNT 353 x10^3/uL (140-400); RED BLOOD COUNT 2.65 x10^6/uL (4.30-5.70); RED CELL DISTRIBUTION WIDTH 23.7 % (11.5-14.5); RETIC COUNT 2.4 % (0.5-2.5); WHITE BLOOD COUNT 6.4 x10^3/uL (4.0-11.0)
[2018-08-25] MEDS ORDERED: IV NORMAL SALINE 1000ML BAG 1,000 ML IV ONE (23:30)
[2018-08-25] MEDS ORDERED: oxyCODONE IR 5 MG TABLET PO ONE (23:30)
[2018-08-25 23:35] LABS: CALCIUM 8.5 mg/dL (8.5-10.1); CREATININE 0.8 mg/dL (0.7-1.3); GFR 147.7; POTASSIUM 3.1 mmol/L (3.5-5.1)
[2018-08-25 23:41] LABS: ALBUMIN 3.9 g/dL (3.4-5.0); ALBUMIN/GLOBULIN RATIO 1.2 (1.0-1.7); TOTAL BILIRUBIN 2.3 mg/dL (0.2-1.0); TOTAL PROTEIN 7.2 g/dL (6.4-8.2)
[2018-08-25 23:55] LABS: ANISOCYTOSIS MARKED; PLT ESTIMATE ADEQUATE (ADEQUATE); POLYCHROMASIA SLIGHT; SCHISTOCYTES OCC; SICKLE CELLS MOD
[2018-08-26] MEDS ORDERED: MORPHINE IR 15 MG TABLET PO ONE (00:45)
--- NOTE | 2018-08-26 07:48 | RAD ---
EXAM: PA and Lateral Views of the Chest DATE: 08/25/2018 11:10 PM INDICATION: sickle cell crisis COMPARISON: 02/25/2018 FINDINGS: The heart is not enlarged. Mediastinal and hilar contours are normal. No focal parenchymal airspace opacity. No pleural effusion or pneumothorax. Minimal osseous stigmata of sickle cell disease is seen IMPRESSION: No evidence for acute cardiopulmonary process. Specifically no consolidative parenchymal opacity is seen. Electronically signed by: To Castano MD (08/26/2018 7:44 AM) [facility]
== END 2018-08-26 00:33 | disposition home or self-care (01) ==
LOC: ER 22:34
DX: D57.00 Hb-SS disease with crisis, unspecified (principal)
CPT/HCPCS: 36415; 71046; 80053; 82550; 85025; 85045; 99284; J7030

== ENCOUNTER 2018-08-27 05:32 | Emergency (ER) | payer BC ==
[~2018-08-27] VITALS: Ht 175.3 cm; Wt 72.1 kg
[2018-08-27 05:50] VITALS: BP 96/53
[2018-08-27] MEDS ORDERED: IV NORMAL SALINE 1000ML BAG 1,000 ML IV ONE (06:30)
[2018-08-27] MEDS ORDERED: KETOROLAC 30 MG/ML VIAL. IV ONE (06:30)
[2018-08-27 07:01] LABS: CALCIUM 8.7 mg/dL (8.5-10.1); CREATININE 0.7 mg/dL (0.7-1.3); GFR 172.3; POTASSIUM 3.2 mmol/L (3.5-5.1)
[2018-08-27 07:09] LABS: BASO # 0.1 x10^3/uL (0.0-0.2); BASO % 1 % (0-3); EOS # 0.2 x10^3/uL (0.0-0.7); EOS % 3 % (0-3); HEMATOCRIT 23.9 % (39.0-53.0); LYMPH # 2.8 x10^3/uL (1.0-4.8); LYMPH % 33 % (24-48); MEAN CORPUSCULAR HEMOGLOBIN 35 pg (25-35); MEAN CORPUSCULAR VOLUME 92 fL (79-100); MONO # 0.9 x10^3/uL (0.0-1.1); MONO % 10 % (0-9); NEUT # 4.7 x10^3uL (1.8-7.7); NEUT % 53 % (31-73); PLATELET COUNT 363 x10^3/uL (140-400); RED BLOOD COUNT 2.61 x10^6/uL (4.30-5.70); RED CELL DISTRIBUTION WIDTH 22.8 % (11.5-14.5); RETIC COUNT 1.6 % (0.5-2.5); WHITE BLOOD COUNT 8.7 x10^3/uL (4.0-11.0)
--- NOTE | 2018-08-27 07:12 | PHYS DOC ---
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 Patient denies fever chills, nausea vomiting or sweats. Denies chest pain shortness of breath. Patient was seen in the emergency department 2 days ago for the same. He is currently taking oxycodone but is in the process of weaning himself out so he can work. Pain is similar in location pattern in severity as previous ED visit. No other acute symptoms or complaints. [] Review of Systems Review of Systems View symptoms as per history of present illness. All other review symptoms are negative. All other systems were reviewed and found to be within normal limits, except as documented in this note. Current Medications Current Medications Current Medications Medications (Trade) Dose Ordered Sig/Glenis Start Time Stop Time Status Last Admin Dose Admin Ketorolac Tromethamine (Toradol 30mg Vial) 30 mg 1X ONCE 08/27/18 06:30 08/27/18 06:31 DC 08/27/18 06:30 30 MG Sodium Chloride 1,000 ml @ 1,000 mls/hr 1X ONCE 08/27/18 06:30 08/27/18 07:29 DC 08/27/18 06:30 1,000 MLS/HR Allergies Allergies Allergies Coded Allergies Type Severity Reaction Last Updated Verified No Known Drug Allergies 11/06/17 No Physical Exam Physical Exam Constitutional: Well developed, well nourished, no acute distress. [] HENT: Normocephalic, atraumatic, bilateral external ears normal, oropharynx moist, no oral exudates, nose normal. [] Eyes: PERRLA, EOMI, conjunctiva normal, no discharge. [] Neck: Normal range of motion, no tenderness, supple, no stridor. [] Cardiovascular:Heart rate regular rhythm, no murmur [] Lungs & Thorax: Bilateral breath sounds clear to auscultation [] Abdomen: Bowel sounds normal, soft, no tenderness. [] Skin: Warm, dry, no erythema, no rash. [] Back: She is back pain, no midline tenderness.. [] Extremities: No tenderness. [] Neurologic: Alert and oriented X 3, normal motor function, normal sensory function, no focal deficits noted. [] Psychologic: Affect normal, judgement normal, mood normal. [] Current Patient Data Vital Signs Vital Signs Date Time Temp Pulse Resp B/P (MAP) Pulse Ox O2 Delivery O2 Flow Rate FiO2 08/27/18 05:50 98.1 83 14 96/53 (67) 100 Room Air 98.1 Lab Values Laboratory Tests Test 08/27/18 06:30 White Blood Count 8.7 x10^3/uL (4.0-11.0) Red Blood Count 2.61 x10^6/uL (4.30-5.70) L Hemoglobin 9.0 g/dL (13.0-17.5) L Hematocrit 23.9 % (39.0-53.0) L Mean Corpuscular Volume 92 fL (79-100) Mean Corpuscular Hemoglobin 35 pg (25-35) Mean Corpuscular Hemoglobin Concent 37 g/dL (31-37) Red Cell Distribution Width 22.8 % (11.5-14.5) H Platelet Count 363 x10^3/uL (140-400) Neutrophils (%) (Auto) 53 % (31-73) Lymphocytes (%) (Auto) 33 % (24-48) Monocytes (%) (Auto) 10 % (0-9) H Eosinophils (%) (Auto) 3 % (0-3) Basophils (%) (Auto) 1 % (0-3) Neutrophils # (Auto) 4.7 x10^3uL (1.8-7.7) Lymphocytes # (Auto) 2.8 x10^3/uL (1.0-4.8) Monocytes # (Auto) 0.9 x10^3/uL (0.0-1.1) Eosinophils # (Auto) 0.2 x10^3/uL (0.0-0.7) Basophils # (Auto) 0.1 x10^3/uL (0.0-0.2) Reticulocyte Count (auto) 1.6 % (0.5-2.5) Sodium Level 141 mmol/L (136-145) Potassium Level 3.2 mmol/L (3.5-5.1) L Chloride Level 104 mmol/L (98-107) Carbon Dioxide Level 25 mmol/L (21-32) Anion Gap 12 (6-14) Blood Urea Nitrogen 10 mg/dL (8-26) Creatinine 0.7 mg/dL (0.7-1.3) Estimated GFR (Cockcroft-Gault) 172.3 Glucose Level 78 mg/dL (70-99) Calcium Level 8.7 mg/dL (8.5-10.1) Laboratory Tests 08/27/18 06:30 Laboratory Tests 08/27/18 06:30 EKG EKG [] Radiology/Procedures Radiology/Procedures [] Course & Med Decision Making Course & Med Decision Making Pertinent Labs and Imaging studies reviewed. (See chart for details) [Exam consistent with chronic pain. Patient was able to complete full night of shift work prior to ED visit. Basic labs reviewed, similar to to baseline. Recommend following up for further pain management.] Dragon Disclaimer Dragon Disclaimer This electronic medical record was generated, in whole or in part, using a voice recognition dictation system. Departure Departure Impression: Primary Impression: Back pain Disposition: 01 HOME, SELF-CARE Condition: IMPROVED Referrals: UNKNOWN PCP NAME (PCP) Patient Instructions: Back Pain, Adult, [id number] LARA KAY DO Aug 27, 2018 07:12
[2018-08-27 07:14] LABS: MEAN CORPUSCULAR HGB CONC 37 g/dL (31-37)
--- NOTE | 2018-08-27 08:37 | RAD ---
CHEST AP ONLY History: GENERALIZED WEAKNESS, HX OF SICKLE CELL. Comparison: August 25, 2018 Cardiomediastinal silhouette is stable. Note that the right lateral lung base and pleural margin is not included. No large right pleural effusion. No left pleural effusion. No consolidating infiltrate. No pneumothorax. Impression: No evidence of consolidating infiltrate. Electronically signed by: Geoffrey Boo MD (08/27/2018 8:33 AM) [facility]
[2018-08-27 10:55] LABS: ANISOCYTOSIS PRESENT; PLT ESTIMATE ADEQUATE (ADEQUATE)
[2018-08-27 10:56] LABS: SICKLE CELLS PRESENT; TARGET CELLS PRESENT
== END 2018-08-27 08:04 | disposition home or self-care (01) ==
LOC: ER 05:32
DX: M54.5 Low back pain (principal); G89.29 Other chronic pain; D57.1 Sickle-cell disease without crisis
CPT/HCPCS: 36415; 71045; 80048; 85025; 85045; 96374; 99284; J1885; J7030

== ENCOUNTER 2018-09-01 04:13 | Emergency (ER) | payer BC ==
[~2018-09-01] VITALS: Ht 175.3 cm; Wt 68.0 kg
[2018-09-01 04:15] VITALS: BP 122/69
[2018-09-01 04:52] LABS: BASO # 0.1 x10^3/uL (0.0-0.2); BASO % 1 % (0-3); EOS # 0.4 x10^3/uL (0.0-0.7); EOS % 5 % (0-3); HEMATOCRIT 24.5 % (39.0-53.0); LYMPH % 42 % (24-48); MEAN CORPUSCULAR HEMOGLOBIN 34 pg (25-35); MEAN CORPUSCULAR HGB CONC 37 g/dL (31-37); MEAN CORPUSCULAR VOLUME 93 fL (79-100); MONO # 0.8 x10^3/uL (0.0-1.1); MONO % 12 % (0-9); NEUT # 2.9 x10^3uL (1.8-7.7); NEUT % 41 % (31-73); PLATELET COUNT 287 x10^3/uL (140-400); RED BLOOD COUNT 2.64 x10^6/uL (4.30-5.70); RED CELL DISTRIBUTION WIDTH 23.2 % (11.5-14.5); WHITE BLOOD COUNT 7.2 x10^3/uL (4.0-11.0)
[2018-09-01 04:54] LABS: RETIC COUNT 2.4 % (0.5-2.5)
[2018-09-01] MEDS ORDERED: oxyCODONE/APAP 10/325 1 TAB TABLET PO ONE (05:00)
--- NOTE | 2018-09-01 05:06 | PHYS DOC ---
Past Medical History Past Medical History: Sickle Cell Disease Additional Past Medical Histor: AVASCULAR NECROSIS OF R HIP Past Surgical History: No Surgical History Additional Past Surgical Histo: L HIP BONE GRAFT Alcohol Use: None Drug Use: None Adult General Chief Complaint Chief Complaint: BACK PAIN - NO INJURY HPI HPI Patient is a 23 year old [place] male with history of sickle cell disease and avascular well-known to this emergency department who presents with chronic back pain. Patient reports chronic diffuse poorly controlled back pain for which he typically takes oxycodone 2-3 times daily. Patient is ran out of oxycodone early today due to increased use. Denies focal extremity weakness or loss of sensation. No chest pain, shortness of breath. No recent illnesses. [] Review of Systems Review of Systems Review symptoms as per history of present illness. All other review symptoms are negative. All other systems were reviewed and found to be within normal limits, except as documented in this note. Current Medications Current Medications Current Medications Medications (Trade) Dose Ordered Sig/Glenis Start Time Stop Time Status Last Admin Dose Admin Oxycodone/ Acetaminophen (Percocet 10/325) 1 tab 1X ONCE 09/01/18 05:00 09/01/18 05:01 DC 09/01/18 04:58 1 TAB Allergies Allergies Allergies Coded Allergies Type Severity Reaction Last Updated Verified No Known Drug Allergies 11/06/17 No Physical Exam Physical Exam Constitutional: Well developed, well nourished, resting comfortably under a blanket and two coats.[] HENT: Normocephalic, atraumatic, bilateral external ears normal, oropharynx moist, nose normal. [] Eyes: PERRLA, EOMI, conjunctiva normal. [] Neck: Normal range of motion, no tenderness. [] Cardiovascular:Heart rate regular rhythm, no murmur [] Lungs & Thorax: Bilateral breath sounds clear to auscultation [] Back: Diffuse low back pain. [] Extremities: No tenderness. [] Neurologic: Alert and oriented X 3, normal motor function, normal sensory function, no focal deficits noted. [] Current Patient Data Vital Signs Vital Signs Date Time Temp Pulse Resp B/P (MAP) Pulse Ox O2 Delivery O2 Flow Rate FiO2 09/01/18 04:15 99.1 67 18 122/69 (86) 98 Room Air 99.1 Lab Values Laboratory Tests Test 09/01/18 04:25 White Blood Count 7.2 x10^3/uL (4.0-11.0) Red Blood Count 2.64 x10^6/uL (4.30-5.70) L Hemoglobin 9.0 g/dL (13.0-17.5) L Hematocrit 24.5 % (39.0-53.0) L Mean Corpuscular Volume 93 fL (79-100) Mean Corpuscular Hemoglobin 34 pg (25-35) Mean Corpuscular Hemoglobin Concent 37 g/dL (31-37) Red Cell Distribution Width 23.2 % (11.5-14.5) H Platelet Count 287 x10^3/uL (140-400) Neutrophils (%) (Auto) 41 % (31-73) Lymphocytes (%) (Auto) 42 % (24-48) Monocytes (%) (Auto) 12 % (0-9) H Eosinophils (%) (Auto) 5 % (0-3) H Basophils (%) (Auto) 1 % (0-3) Neutrophils # (Auto) 2.9 x10^3uL (1.8-7.7) Lymphocytes # (Auto) 3.0 x10^3/uL (1.0-4.8) Monocytes # (Auto) 0.8 x10^3/uL (0.0-1.1) Eosinophils # (Auto) 0.4 x10^3/uL (0.0-0.7) Basophils # (Auto) 0.1 x10^3/uL (0.0-0.2) Platelet Estimate Pending Reticulocyte Count (auto) 2.4 % (0.5-2.5) Laboratory Tests 09/01/18 04:25 EKG EKG [] Radiology/Procedures Radiology/Procedures [] Course & Med Decision Making Course & Med Decision Making Pertinent Labs and Imaging studies reviewed. (See chart for details) [Poorly controlled chronic back pain without current evidence of acute sickle cell crisis. Oxycodone given. 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 Departure Departure Impression: Primary Impression: Back pain Disposition: 01 HOME, SELF-CARE Condition: GOOD Referrals: UNKNOWN PCP NAME (PCP) Patient Instructions: Sickle Cell Anemia-Brief, Back Pain, Adult, [id number] Additional Instructions: Please follow-up with your PCP or sickle cell physician today for evaluation and management of chronic back pain and sickle cell disease. LARA KYA DO Sep 01, 2018 05:06
[2018-09-01 06:14] LABS: ANISOCYTOSIS PRESENT; PLT ESTIMATE ADEQUATE (ADEQUATE); POIKILOCYTOSIS PRESENT; POLYCHROMASIA PRESENT
[2018-09-01 06:15] LABS: SICKLE CELLS PRESENT; TARGET CELLS PRESENT
== END 2018-09-01 05:31 | disposition home or self-care (01) ==
LOC: ER 04:13
DX: G89.29 Other chronic pain (principal); M54.5 Low back pain; D57.1 Sickle-cell disease without crisis
CPT/HCPCS: 36415; 85025; 85045; 99283

== ENCOUNTER 2018-10-04 08:59 | Emergency (ER) | payer BC ==
[~2018-10-04] VITALS: Ht 175.3 cm; Wt 72.1 kg
[2018-10-04] MEDS ORDERED: IV NORMAL SALINE 1000ML BAG 1,000 ML IV ONE (09:45)
[2018-10-04] MEDS ORDERED: oxyCODONE/APAP 10/325 1 TAB TABLET PO ONE (09:45)
[2018-10-04] MEDS ORDERED: MORPHINE SULFATE 4 MG/ML VIAL. IV ONE (09:45)
--- NOTE | 2018-10-04 09:47 | PHYS DOC ---
Past Medical History Past Medical History: Sickle Cell Disease Additional Past Medical Histor: AVASCULAR NECROSIS OF R HIP Past Surgical History: No Surgical History Additional Past Surgical Histo: L HIP BONE GRAFT Alcohol Use: None Drug Use: None Adult General Chief Complaint Chief Complaint: LOWER EXT PAIN HPI HPI Patient is a 23 year old male who presents to the ER for evaluation of low back pain with radiation to bilateral lower extremities. Patient with history of sickle cell disease. Patient states that this feels exactly like previous sickle cell crisis. Patient reports onset of increased pain at approximately 2 AM. Patient states that he is at work where he is unable to take his prescribed oral narcotic and feels that he is "behind the pain". Reports some chronic right hip pain secondary to avascular necrosis. Denies any other competitions related sickle cell disease. No chest pain, no cough, no fever. Pain is constant , sharp/aching, 10 out of 10, increased with movement. Follows with collateral clerk at [facility]. Reports compliance with follow-up there. States that he is here is because this is close to home. Review of Systems Review of Systems Constitutional: Denies fever or chills [] Eyes: Denies change in visual acuity, redness, or eye pain [] HENT: Denies nasal congestion or sore throat [] Respiratory: Denies cough or shortness of breath [] Cardiovascular: no chest pain, no LE edema, no palptiations GI: Denies abdominal pain, nausea, vomiting, bloody stools or diarrhea [] : Denies dysuria or hematuria [] Musculoskeletal: Back pain and joint pain present Integument: Denies rash or skin lesions [] Neurologic: Denies headache, focal weakness or sensory changes [] Endocrine: Denies polyuria or polydipsia [] All other systems were reviewed and found to be within normal limits, except as documented in this note. Current Medications Current Medications Current Medications Medications (Trade) Dose Ordered Sig/Glenis Start Time Stop Time Status Last Admin Dose Admin Morphine Sulfate (Morphine Sulfate) 4 mg 1X ONCE 10/04/18 09:45 10/04/18 09:46 DC 10/04/18 10:13 4 MG Oxycodone/ Acetaminophen (Percocet 10/325) 1 tab 1X ONCE 10/04/18 09:45 10/04/18 09:46 DC 10/04/18 10:13 1 TAB Sodium Chloride 1,000 ml @ 1,000 mls/hr 1X ONCE 10/04/18 09:45 10/04/18 10:44 DC 10/04/18 10:12 1,000 MLS/HR Allergies Allergies Allergies Coded Allergies Type Severity Reaction Last Updated Verified No Known Drug Allergies 11/06/17 No Physical Exam Physical Exam Constitutional: Well developed, well nourished,non-toxic appearing, moderate distress. HENT: Normocephalic, atraumatic, Eyes: PERRLA, EOMI, Neck: no stridor. [] Cardiovascular:Heart rate regular rhythm, no murmur [] Lungs & Thorax: Bilateral breath sounds clear to auscultation [] Abdomen: Bowel sounds normal, soft, no tenderness, no masses, no pulsatile masses. [] Skin: Warm, dry, no erythema, no rash. [] Back: Mild decreased ROM 2/2 pain, no midline spinal tenderness, Increased pain with bilateral SLE. Extremities: No tenderness, no cyanosis, no clubbing, ROM intact, no edema, Distal sensation intact. [] Neurologic: Alert and oriented X 3, no focal deficits noted. [] Psychologic: Affect normal, judgement normal, mood normal. [] Current Patient Data Vital Signs Vital Signs Date Time Temp Pulse Resp B/P (MAP) Pulse Ox O2 Delivery O2 Flow Rate FiO2 10/04/18 09:31 98.4 70 20 115/57 (76) 98 Room Air 98.4 Lab Values Laboratory Tests Test 10/04/18 09:55 White Blood Count 5.1 x10^3/uL (4.0-11.0) Red Blood Count 2.73 x10^6/uL (4.30-5.70) L Hemoglobin 9.3 g/dL (13.0-17.5) L Hematocrit 26.1 % (39.0-53.0) L Mean Corpuscular Volume 96 fL (79-100) Mean Corpuscular Hemoglobin 34 pg (25-35) Mean Corpuscular Hemoglobin Concent 36 g/dL (31-37) Red Cell Distribution Width 21.1 % (11.5-14.5) H Platelet Count 245 x10^3/uL (140-400) Neutrophils (%) (Auto) 36 % (31-73) Lymphocytes (%) (Auto) 35 % (24-48) Monocytes (%) (Auto) 23 % (0-9) H Eosinophils (%) (Auto) 4 % (0-3) H Basophils (%) (Auto) 2 % (0-3) Neutrophils # (Auto) 1.9 x10^3uL (1.8-7.7) Lymphocytes # (Auto) 1.8 x10^3/uL (1.0-4.8) Monocytes # (Auto) 1.2 x10^3/uL (0.0-1.1) H Eosinophils # (Auto) 0.2 x10^3/uL (0.0-0.7) Basophils # (Auto) 0.1 x10^3/uL (0.0-0.2) Platelet Estimate Pending Reticulocyte Count (auto) 3.3 % (0.5-2.5) H Sodium Level 141 mmol/L (136-145) Potassium Level 3.8 mmol/L (3.5-5.1) Chloride Level 106 mmol/L (98-107) Carbon Dioxide Level 25 mmol/L (21-32) Anion Gap 10 (6-14) Blood Urea Nitrogen 11 mg/dL (8-26) Creatinine 0.6 mg/dL (0.7-1.3) L Estimated GFR (Cockcroft-Gault) 205.8 BUN/Creatinine Ratio 18 (6-20) Glucose Level 105 mg/dL (70-99) H Calcium Level 8.6 mg/dL (8.5-10.1) Total Bilirubin 1.6 mg/dL (0.2-1.0) H Aspartate Amino Transferase (AST) 40 U/L (15-37) H Alanine Aminotransferase (ALT) 30 U/L (16-63) Alkaline Phosphatase 73 U/L (46-116) Lactate Dehydrogenase 681 U/L (85-227) H Total Protein 7.3 g/dL (6.4-8.2) Albumin 4.1 g/dL (3.4-5.0) Albumin/Globulin Ratio 1.3 (1.0-1.7) Laboratory Tests 10/04/18 09:55 Laboratory Tests 10/04/18 09:55 EKG EKG [] Radiology/Procedures Radiology/Procedures [] Course & Med Decision Making Course & Med Decision Making Pertinent Labs and Imaging studies reviewed. (See chart for details) []11:55 Labs within normal baseline for pt including chronic anemia, chronic retic elevation and chronic LDH elevation. Pain controlled. Has Oxycodone at home to take. Vital signs stable. has ride home. Advised continue pain management at home with oral medications. Advised close follow-up with collateral clerk. At time of discharge patient noted concern for trichomonas exposure. States that girlfriend was diagnosed with Trichomonas approximately 2 weeks ago And was not positive for chlamydia or gonorrhea. . Has been having dysuria. Will send urine for further testing but treat for trichomonas. ER return precautions given. Patient verbalized understanding. All questions answered. Dragon Disclaimer Dragon Disclaimer This electronic medical record was generated, in whole or in part, using a voice recognition dictation system. Departure Departure Impression: Primary Impression: Sickle cell pain crisis Additional Impressions: Infection due to trichomonas Exposure to trichomonas Disposition: HOME, SELF-CARE Condition: IMPROVED Referrals: UNKNOWN PCP NAME (PCP) Patient Instructions: Sexually Transmitted Disease, Sickle Cell Pain Crisis Additional Instructions: Thank you for coming to [facility]. Please repeat the attached handouts. Please follow-up with your primary care physician. Continue home medications. You were given a full treatment for Trichomonas. Please do not resume sex until your sexual partner is tested again. Return to the ER if your symptoms worsen or you have any other concerns. Problem Qualifiers JENS COSME DO Oct 04, 2018 09:47
[2018-10-04 10:11] LABS: CALCIUM 8.6 mg/dL (8.5-10.1); CREATININE 0.6 mg/dL (0.7-1.3); GFR 205.8; POTASSIUM 3.8 mmol/L (3.5-5.1)
[2018-10-04 10:12] LABS: BASO # 0.1 x10^3/uL (0.0-0.2); BASO % 2 % (0-3); EOS # 0.2 x10^3/uL (0.0-0.7); EOS % 4 % (0-3); HEMATOCRIT 26.1 % (39.0-53.0); HEMOGLOBIN 9.3 g/dL (13.0-17.5); LYMPH # 1.8 x10^3/uL (1.0-4.8); LYMPH % 35 % (24-48); MEAN CORPUSCULAR HEMOGLOBIN 34 pg (25-35); MEAN CORPUSCULAR HGB CONC 36 g/dL (31-37); MEAN CORPUSCULAR VOLUME 96 fL (79-100); MONO # 1.2 x10^3/uL (0.0-1.1); MONO % 23 % (0-9); NEUT # 1.9 x10^3uL (1.8-7.7); NEUT % 36 % (31-73); PLATELET COUNT 245 x10^3/uL (140-400); RED BLOOD COUNT 2.73 x10^6/uL (4.30-5.70); RED CELL DISTRIBUTION WIDTH 21.1 % (11.5-14.5); RETIC COUNT 3.3 % (0.5-2.5); WHITE BLOOD COUNT 5.1 x10^3/uL (4.0-11.0)
[2018-10-04 10:18] LABS: ALBUMIN 4.1 g/dL (3.4-5.0); ALBUMIN/GLOBULIN RATIO 1.3 (1.0-1.7); TOTAL BILIRUBIN 1.6 mg/dL (0.2-1.0); TOTAL PROTEIN 7.3 g/dL (6.4-8.2)
[2018-10-04 12:00] VITALS: BP 112/61
[2018-10-04] MEDS ORDERED: metroNIDAZOLE 500 MG TABLET PO ONE (12:00)
[2018-10-04 13:30] LABS: % BASOS 3 % (0-3); % EOS 3 % (0-5); % LYMPHS 34 % (24-48); % MONOS 21 % (0-10); % SEGS 39 % (35-66); ANISOCYTOSIS MOD; PLT ESTIMATE ADEQUATE (ADEQUATE)
[2018-10-04 13:31] LABS: SICKLE CELLS MOD
[2018-10-04 13:34] LABS: TARGET CELLS OCC
[2018-10-04 13:35] LABS: SCHISTOCYTES OCC
== END 2018-10-04 12:11 | disposition home or self-care (01) ==
LOC: ER 08:59
DX: D57.00 Hb-SS disease with crisis, unspecified (principal); A59.8 Trichomoniasis of other sites; M54.42 Lumbago with sciatica, left side; M54.41 Lumbago with sciatica, right side; M25.551 Pain in right hip; G89.29 Other chronic pain
CPT/HCPCS: 36415; 80053; 83615; 85007; 85025; 85045; 87491; 87591; 96374; 99283; J2270; J7030

== ENCOUNTER 2018-10-13 20:14 | Emergency (ER) | payer BC ==
[~2018-10-13] VITALS: Ht 175.3 cm; Wt 72.1 kg
--- NOTE | 2018-10-13 20:42 | PHYS DOC ---
Past Medical History Past Medical History: Sickle Cell Disease Additional Past Medical Histor: AVASCULAR NECROSIS OF R HIP Past Surgical History: No Surgical History Additional Past Surgical Histo: L HIP BONE GRAFT Alcohol Use: None Drug Use: None Adult General Chief Complaint Chief Complaint: BACK PAIN - NO INJURY HPI HPI Patient is a 23 year old male who presents with low back pain that started yesterday. He has sickle cell disease and frequently experiences back pain. Patient says he is able to control the pain at home with prescribed oxycodone. Last episode of low back pain was three days ago. He came into ED because he ran out of his medications and doesn't have an appointment until next week. He takes hydroxyurea and folic acid and is up to date on immunizations. No recent hospitalizations for sickle cell crisis. Currently he denies chest pain and shortness of breath. Review of Systems Review of Systems Constitutional: Denies fever or chills [] Respiratory: Denies cough or shortness of breath [] Cardiovascular: No chest pain [] GI: Denies abdominal pain, nausea, vomiting, diarrhea [] : Denies dysuria or hematuria [] Musculoskeletal: Reports low back pain [] Integument: Denies rash or skin lesions [] Neurologic: Denies headache, focal weakness or sensory changes [] complete systems were reviewed and found to be within normal limits, except as documented in this note. Allergies Allergies Allergies Coded Allergies Type Severity Reaction Last Updated Verified No Known Drug Allergies 11/06/17 No Physical Exam Physical Exam Constitutional: Well developed, well nourished, no acute distress, non-toxic appearance. [] HENT: Normocephalic, atraumatic, bilateral external ears normal, oropharynx moist, no oral exudates, nose normal. [] Eyes: PERRLA, EOMI, conjunctiva normal, no discharge. [] Neck: Normal range of motion, no tenderness, supple, no stridor. [] Cardiovascular:Heart rate regular rhythm, no murmur [] Lungs & Thorax: Bilateral breath sounds clear to auscultation [] Abdomen: Bowel sounds normal, soft, no tenderness, no masses, no pulsatile masses. [] Skin: Warm, dry, no erythema, no rash. [] Back: No tenderness, no CVA tenderness. [] Extremities: No tenderness, no cyanosis, no clubbing, ROM intact, no edema. [] Neurologic: Alert and oriented X 3, normal motor function, normal sensory function, no focal deficits noted. [] Psychologic: Affect normal, judgement normal, mood normal. [] Current Patient Data Vital Signs Vital Signs Date Time Temp Pulse Resp B/P (MAP) Pulse Ox O2 Delivery O2 Flow Rate FiO2 10/13/18 20:45 99.0 83 15 127/73 (91) 97 Room Air 99.0 EKG EKG [] Radiology/Procedures Radiology/Procedures [] Course & Med Decision Making Course & Med Decision Making Pertinent Labs and Imaging studies reviewed. (See chart for details) [] Dragon Disclaimer Dragon Disclaimer This electronic medical record was generated, in whole or in part, using a voice recognition dictation system. Departure Departure Impression: Primary Impression: Sickle cell pain crisis Additional Impression: Back pain Disposition: 01 HOME, SELF-CARE Condition: STABLE Referrals: UNKNOWN PCP NAME (PCP) Patient Instructions: Back Pain, Adult, [id number], Sickle Cell Pain Crisis, [id number] Problem Qualifiers Additional Impression: Back pain Back pain location: low back pain Chronicity: acute Back pain laterality: bilateral Sciatica presence: unspecified whether sciatica present Qualified Codes: M54.5 - Low back pain RC CARABALLO DO Oct 13, 2018 20:42
[2018-10-13] MEDS ORDERED: oxyCODONE IR 5 MG TABLET PO ONE (22:00)
[2018-10-13 22:06] VITALS: BP 99/53
== END 2018-10-13 22:35 | disposition home or self-care (01) ==
LOC: ER 20:14
DX: D57.00 Hb-SS disease with crisis, unspecified (principal); M54.5 Low back pain
CPT/HCPCS: 99282; 99283

== ENCOUNTER 2018-12-16 06:58 | Emergency (ER) | payer BC ==
[~2018-12-16] VITALS: Ht 175.3 cm; Wt 77.1 kg
[2018-12-16] MEDS ORDERED: ONDANSETRON PF 4 MG/2 ML VIAL. IV ONE (07:15)
[2018-12-16] MEDS ORDERED: IV NORMAL SALINE 1000ML BAG 1,000 ML IV ONE (07:15)
[2018-12-16 07:24] LABS: BASO # 0.1 x10^3/uL (0.0-0.2); BASO % 1 % (0-3); EOS # 0.1 x10^3/uL (0.0-0.7); EOS % 1 % (0-3); HEMATOCRIT 27.7 % (39.0-53.0); HEMOGLOBIN 9.8 g/dL (13.0-17.5); LYMPH # 3.3 x10^3/uL (1.0-4.8); LYMPH % 33 % (24-48); MEAN CORPUSCULAR HEMOGLOBIN 34 pg (25-35); MEAN CORPUSCULAR HGB CONC 35 g/dL (31-37); MEAN CORPUSCULAR VOLUME 94 fL (79-100); MONO # 0.9 x10^3/uL (0.0-1.1); MONO % 9 % (0-9); NEUT # 5.5 x10^3uL (1.8-7.7); NEUT % 56 % (31-73); PLATELET COUNT 293 x10^3/uL (140-400); RED BLOOD COUNT 2.93 x10^6/uL (4.30-5.70); RED CELL DISTRIBUTION WIDTH 20.1 % (11.5-14.5); WHITE BLOOD COUNT 9.9 x10^3/uL (4.0-11.0)
--- NOTE | 2018-12-16 07:24 | PHYS DOC ---
Past Medical History Past Medical History: Sickle Cell Disease Additional Past Medical Histor: AVASCULAR NECROSIS OF R HIP Past Surgical History: Other Additional Past Surgical Histo: L HIP BONE GRAFT Alcohol Use: None Drug Use: Marijuana Adult General Chief Complaint Chief Complaint: PAIN CONTROL HPI HPI 23-year-old male presenting with a pain crisis. Typically his pain is in his shoulders and chest and back. He denies any shortness of breath. It is associated with weather change. His pain is a sharp shooting moderate pain is not alleviated by his opioids at home. He denies any fevers or chills nausea vomiting or abdominal pain. Review of systems is negative for headache neck stiffness confusion cyanosis lethargy or difficulty breathing. All other review of systems is negative unless otherwise noted in history of present illness. ED course: 23-year-old male with history of sickle cell disease presenting with pain crisis. On arrival he is afebrile with normal heart rate and normal blood pressure. We'll give patient IV fluids nausea and pain medication here in the emergency room. Basic blood work ordered. Chest x-ray ordered. Chest x-ray unremarkable. Blood work shows hemoglobin is up mildly. Reticulocyte count within normal limits. On reexamination the patient's feeling better. We will discharge him home to follow up with PCP in one to 2 days.The patient has been examined and was not found to have an emergency medical condition. The patient was then discharged home in stable condition to follow up with their primary care physician over the next 1-2 days. They were to return if their symptoms worsened or if they were concerned for any reason. They were also instructed to return to the emergency department if they were unable to get the recommended and appropriate follow-up. [id number] discharge instructions and return precautions were given. Patient's questions were answered to their satisfaction. Patient is comfortable with plan. Review of Systems Review of Systems SEE ABOVE. Current Medications Current Medications Current Medications Medications (Trade) Dose Ordered Sig/Glenis Start Time Stop Time Status Last Admin Dose Admin Hydromorphone HCl (Dilaudid) 0.5 mg PRN Q30MIN PRN 12/16/18 07:15 12/16/18 07:32 0.5 MG Ondansetron HCl (Zofran) 4 mg 1X ONCE 12/16/18 07:15 12/16/18 07:19 DC 12/16/18 07:31 4 MG Sodium Chloride 1,000 ml @ 1,000 mls/hr 1X ONCE 12/16/18 07:15 12/16/18 08:14 12/16/18 07:33 1,000 MLS/HR Allergies Allergies Allergies Coded Allergies Type Severity Reaction Last Updated Verified No Known Drug Allergies 11/06/17 No Physical Exam Physical Exam SEE ABOVE Constitutional: Well developed, well nourished, non-toxic appearance. [] HENT: Normocephalic, atraumatic, bilateral external ears normal, oropharynx moist, no oral exudates, nose normal. [] Eyes: PERRLA, EOMI, conjunctiva normal, no discharge. [] Neck: Normal range of motion, no tenderness, supple, no stridor. [] Cardiovascular:Heart rate regular rhythm, no murmur [] Lungs & Thorax: Bilateral breath sounds clear to auscultation [] Abdomen: Bowel sounds normal, soft, no tenderness, no masses, no pulsatile masses. [] Skin: Warm, dry, no erythema, no rash. [] Back: No tenderness, no CVA tenderness. [] Extremities: No tenderness, no cyanosis, no clubbing, ROM intact, no edema. [] Neurologic: Alert and oriented X 3, normal motor function, normal sensory function, no focal deficits noted. [] Psychologic: Affect normal, judgement normal, mood normal. [] Current Patient Data Vital Signs Vital Signs Date Time Temp Pulse Resp B/P (MAP) Pulse Ox O2 Delivery O2 Flow Rate FiO2 12/16/18 07:18 98.7 63 16 127/56 (79) 98 Room Air 98.7 Lab Values Laboratory Tests Test 12/16/18 07:11 White Blood Count 9.9 x10^3/uL (4.0-11.0) Red Blood Count 2.93 x10^6/uL (4.30-5.70) L Hemoglobin 9.8 g/dL (13.0-17.5) L Hematocrit 27.7 % (39.0-53.0) L Mean Corpuscular Volume 94 fL (79-100) Mean Corpuscular Hemoglobin 34 pg (25-35) Mean Corpuscular Hemoglobin Concent 35 g/dL (31-37) Red Cell Distribution Width 20.1 % (11.5-14.5) H Platelet Count 293 x10^3/uL (140-400) Neutrophils (%) (Auto) 56 % (31-73) Lymphocytes (%) (Auto) 33 % (24-48) Monocytes (%) (Auto) 9 % (0-9) Eosinophils (%) (Auto) 1 % (0-3) Basophils (%) (Auto) 1 % (0-3) Neutrophils # (Auto) 5.5 x10^3uL (1.8-7.7) Lymphocytes # (Auto) 3.3 x10^3/uL (1.0-4.8) Monocytes # (Auto) 0.9 x10^3/uL (0.0-1.1) Eosinophils # (Auto) 0.1 x10^3/uL (0.0-0.7) Basophils # (Auto) 0.1 x10^3/uL (0.0-0.2) Platelet Estimate Pending Reticulocyte Count (auto) 2.1 % (0.5-2.5) Sodium Level 137 mmol/L (136-145) Potassium Level 3.5 mmol/L (3.5-5.1) Chloride Level 103 mmol/L (98-107) Carbon Dioxide Level 25 mmol/L (21-32) Anion Gap 9 (6-14) Blood Urea Nitrogen 10 mg/dL (8-26) Creatinine 0.7 mg/dL (0.7-1.3) Estimated GFR (Cockcroft-Gault) 172.3 BUN/Creatinine Ratio 14 (6-20) Glucose Level 130 mg/dL (70-99) H Calcium Level 9.3 mg/dL (8.5-10.1) Total Bilirubin 2.0 mg/dL (0.2-1.0) H Aspartate Amino Transferase (AST) 44 U/L (15-37) H Alanine Aminotransferase (ALT) 23 U/L (16-63) Alkaline Phosphatase 70 U/L (46-116) Total Protein 8.0 g/dL (6.4-8.2) Albumin 4.6 g/dL (3.4-5.0) Albumin/Globulin Ratio 1.4 (1.0-1.7) Laboratory Tests 12/16/18 07:11 Laboratory Tests 12/16/18 07:11 EKG EKG [] Radiology/Procedures Radiology/Procedures [] Course & Med Decision Making Course & Med Decision Making Pertinent Labs and Imaging studies reviewed. (See chart for details) [] Dragon Disclaimer Dragon Disclaimer This electronic medical record was generated, in whole or in part, using a voice recognition dictation system. Departure Departure Impression: Primary Impression: Sickle cell pain crisis Disposition: 01 HOME, SELF-CARE Condition: STABLE Referrals: UNKNOWN PCP NAME (PCP) Patient Instructions: Sickle Cell Pain Crisis, [id number] Additional Instructions: Thank you for allowing us to participate in your care today. Return to the emergency department you have any new or worsening symptoms, or if you are concerned for any reason. Return to emergency department if you have any new or concerning symptoms including but not limited to fever, chills, nausea, vomiting, intractable pain, any new rashes, chest pain, shortness of air, uncontrolled bleeding, difficulty breathing, and/or vision loss. Follow up with your primary care physician within 1-2 days. Call your Primary Doctor tomorrow and inform them of your visit today. If you do not have a primary care provider we are happy to provide you with a list of our primary care providers contact information. This condition should be evaluated by your primary care physician and any recommended consulting services for continued management within 2 days after discharge. If at any time, you are having difficulty getting into your primary care doctor or a specialist, return to the emergency department. SCOT SANTOS MD Dec 16, 2018 07:24
[2018-12-16] MEDS: HYDROmorphone 2 MG/ML VIAL IV PRN ×2 (07:32→08:22)
[2018-12-16 07:33] LABS: RETIC COUNT 2.1 % (0.5-2.5)
[2018-12-16 07:34] LABS: CALCIUM 9.3 mg/dL (8.5-10.1); CREATININE 0.7 mg/dL (0.7-1.3); GFR 172.3; POTASSIUM 3.5 mmol/L (3.5-5.1)
[2018-12-16 07:39] LABS: ALBUMIN 4.6 g/dL (3.4-5.0); ALBUMIN/GLOBULIN RATIO 1.4 (1.0-1.7)
--- NOTE | 2018-12-16 07:57 | RAD ---
CHEST PA LATERAL History: CHEST PAIN X2 DAYS. HX OF SICKLE CELL Comparison: AP chest August 27, 2018. Findings: The cardiomediastinal silhouette is normal. Pulmonary vasculature is normal. The lungs are clear. No pleural effusion or pneumothorax is seen. Bones are stable. IMPRESSION: No acute cardiopulmonary process. Electronically signed by: Luke Kamara MD (12/16/2018 7:54 AM) [id number]
[2018-12-16 08:56] VITALS: BP 116/57
[2018-12-16 10:06] LABS: PLT ESTIMATE ADEQUATE (ADEQUATE)
[2018-12-16 10:11] LABS: ANISOCYTOSIS MOD; HYPOCHROMIA PRESENT; OVALOCYTES PRESENT; POIKILOCYTOSIS PRESENT; POLYCHROMASIA PRESENT; SICKLE CELLS PRESENT; TARGET CELLS PRESENT
[2018-12-16] MEDS ORDERED: LIDO30CR TP (21:51)
--- NOTE | 2018-12-19 11:26 | EKG ---
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 Electronically Signed On 12-21-2018 12:03:53 CDT by Polo Mena
== END 2018-12-16 08:55 | disposition home or self-care (01) ==
LOC: ER 06:58
DX: D57.00 Hb-SS disease with crisis, unspecified (principal); R07.89 Other chest pain; M25.511 Pain in right shoulder; M25.512 Pain in left shoulder; R11.0 Nausea
CPT/HCPCS: 36415; 71046; 80053; 85025; 85045; 93005; 96374; 96375; 96376; 99285; J1170; J2405; J7030

== ENCOUNTER 2018-12-16 20:14 | Emergency (ER) | payer BC ==
[~2018-12-16] VITALS: Ht 175.3 cm; Wt 77.1 kg
[2018-12-16 20:50] VITALS: BP 121/58
--- NOTE | 2018-12-16 21:17 | PHYS DOC ---
Past Medical History Past Medical History: Sickle Cell Disease Additional Past Medical Histor: AVASCULAR NECROSIS OF R HIP Past Surgical History: Other Additional Past Surgical Histo: L HIP BONE GRAFT Alcohol Use: None Drug Use: Marijuana Adult General Chief Complaint Chief Complaint: BACK PAIN - NO INJURY HPI HPI Patient is a 23 year old AA male with sickle cell ds. He was seen here earlier today for pain and had blood work, fluids and IV pain medicine. His blood work was reassuring and was reviewed by myself again on his arrival. He states he went home and fell asleep and when he awoke to get ready for work, he started having horrible pain again in his back and arms and legs. His home medications are currently not helping his pain. Review of Systems Review of Systems Constitutional: Denies fever or chills [] Eyes: Denies change in visual acuity, redness, or eye pain [] HENT: Denies nasal congestion or sore throat [] Respiratory: Denies cough or shortness of breath [] Cardiovascular: No additional information not addressed in HPI [] GI: Denies abdominal pain, nausea, vomiting, bloody stools or diarrhea [] : Denies dysuria or hematuria [] Musculoskeletal: Reports back pain, B arm and leg pain. Integument: Denies rash or skin lesions [] Neurologic: Denies headache, focal weakness or sensory changes [] All other systems were reviewed and found to be within normal limits, except as documented in this note. Current Medications Current Medications Current Medications Medications (Trade) Dose Ordered Sig/Glenis Start Time Stop Time Status Last Admin Dose Admin Hydromorphone HCl (Dilaudid) 1 mg 1X ONCE 12/16/18 21:30 12/16/18 21:31 DC 12/16/18 21:18 1 MG Ondansetron HCl (Zofran Odt) 4 mg 1X ONCE 12/16/18 21:30 12/16/18 21:31 DC 12/16/18 21:18 4 MG Allergies Allergies Allergies Coded Allergies Type Severity Reaction Last Updated Verified No Known Drug Allergies 11/06/17 No Physical Exam Physical Exam Constitutional: Well developed, well nourished, no acute distress, non-toxic appearance. [] HENT: Normocephalic, atraumatic, bilateral external ears normal, oropharynx moist, no oral exudates, nose normal. [] Eyes: PERRLA, EOMI, conjunctiva normal, no discharge. [] Neck: Normal range of motion, no tenderness, supple, no stridor. [] Cardiovascular:Heart rate regular rhythm, no murmur [] Lungs & Thorax: Bilateral breath sounds clear to auscultation [] Abdomen: Bowel sounds normal, soft, no tenderness, no masses, no pulsatile masses. [] Skin: Warm, dry, no erythema, no rash. [] Back: Tenderness to palpation of back, arms and legs. Extremities: No tenderness, no cyanosis, no clubbing, ROM intact, no edema. [] Neurologic: Alert and oriented X 3, normal motor function, normal sensory function, no focal deficits noted. [] Psychologic: Affect normal, judgement normal, mood normal. [] Current Patient Data Vital Signs Vital Signs Date Time Temp Pulse Resp B/P (MAP) Pulse Ox O2 Delivery O2 Flow Rate FiO2 12/16/18 21:18 18 98 Room Air 12/16/18 20:50 98.2 69 121/58 (79) 98.2 EKG EKG [] Radiology/Procedures Radiology/Procedures [] Course & Med Decision Making Course & Med Decision Making Pertinent Labs and Imaging studies reviewed. (See chart for details) Pt given IM pain shot in ER and then he requested lidocaine cream which was written. He was given work note for next 2 days and recommended he f/u with his PCP. Christinon Disclaimer Candelario Disclaimer This electronic medical record was generated, in whole or in part, using a voice recognition dictation system. Departure Departure Impression: Primary Impression: Sickle cell pain crisis Disposition: 01 HOME, SELF-CARE Condition: IMPROVED Referrals: UNKNOWN PCP NAME (PCP) Patient Instructions: Sickle Cell Pain Crisis, [id number] Additional Instructions: Rest, warm baths, close follow up with PCP. Scripts Lidocaine/Prilocaine (LIDOCAINE-PRILOCAINE CREAM) 30 Gm Cream..g. 30 GM TP Q8HRS PRN for PAIN, #1 EACH Prov: GONZALO DIAZ 12/16/18 GONZALO DIAZ Dec 16, 2018 21:17
[2018-12-16] MEDS ORDERED: HYDROmorphone 2 MG/ML VIAL IM ONE (21:30)
[2018-12-16] MEDS ORDERED: ONDANSETRON ODT 4 MG TAB.RAPDIS. PO ONE (21:30)
[2018-12-16] MEDS ORDERED: LIDO30CR TP (21:51)
== END 2018-12-16 22:02 | disposition home or self-care (01) ==
LOC: ER 20:14
DX: D57.00 Hb-SS disease with crisis, unspecified (principal); M54.9 Dorsalgia, unspecified; M79.605 Pain in left leg; M79.604 Pain in right leg
CPT/HCPCS: 96372; 99283; J1170; Q0162

== ENCOUNTER 2019-01-25 18:28 | Emergency (ER) | payer BC ==
[~2019-01-25] VITALS: Ht 175.3 cm; Wt 72.6 kg
[~2019-01-25 18:28] MED LIST changes: +LIDO30CR TP
[2019-01-25] MEDS ORDERED: HYDROmorphone 2 MG/ML VIAL IM ONE (19:15)
--- NOTE | 2019-01-25 19:45 | PHYS DOC ---
Past Medical History Past Medical History: Sickle Cell Disease Additional Past Medical Histor: AVASCULAR NECROSIS OF R HIP Past Surgical History: Other Additional Past Surgical Histo: L HIP BONE GRAFT Alcohol Use: None Drug Use: Marijuana Adult General Chief Complaint Chief Complaint: BACK PAIN - NO INJURY HPI HPI 23-year-old male presents to ER for complaints of exacerbation of his sickle cell with diffuse back pain. Patient states symptoms increased this morning and he took his prescribed medications at noon however he has had no relief in symptoms. Patient reports this is similar to prior exacerbation. Patient was in the ER multiple times in November with similar presentation patient states pain is the same as when he came to the ER at that time. Patient denies any falls/injury. Pt denies fever, urinary symptoms, incontinence of bowel or bladder, or saddle anesthesia. Review of Systems Review of Systems Constitutional: Denies fever Respiratory: Denies cough or shortness of breath [] Cardiovascular: No additional information not addressed in HPI [] GI: Denies abdominal pain, nausea, vomiting, bloody stools or diarrhea [] : Denies urinary sxs. Denies incontinence Musculoskeletal: Denies joint pain. Reports diffuse back pain Integument: Denies rash or skin lesions [] Neurologic: Denies headache, focal weakness or sensory changes [] All other systems were reviewed and found to be within normal limits, except as documented in this note. Current Medications Current Medications Current Medications Medications (Trade) Dose Ordered Sig/Glenis Start Time Stop Time Status Last Admin Dose Admin Hydromorphone HCl (Dilaudid) 1 mg 1X ONCE 01/25/19 19:15 01/25/19 19:23 DC 01/25/19 19:26 1 MG Allergies Allergies Allergies Coded Allergies Type Severity Reaction Last Updated Verified No Known Drug Allergies 11/06/17 No Physical Exam Physical Exam Constitutional: Well developed, well nourished, moderate distress/tearful/restl ess, non-toxic appearance. [] HENT: Normocephalic, atraumatic, oropharynx moist, nose normal. [] Eyes: Pupils equal, conjunctiva normal, no discharge. [] Neck: Normal range of motion, no tenderness, supple, no stridor. [] Cardiovascular: Heart rate regular rhythm, no murmur [] Lungs & Thorax: Bilateral breath sounds clear to auscultation. Resp. equal/nonlabored Abdomen: Bowel sounds normal, soft, no tenderness Skin: Warm, dry, no erythema, no rash. [] Back: Diffuse tenderness in back- no focal area/swelling/skin discoloration Extremities: No tenderness, no cyanosis, no clubbing, ROM intact, no edema. [] Neurologic: Alert and oriented X 3, normal motor function, normal sensory function, no focal deficits noted. [] Psychologic: Affect normal, judgement normal, mood anxious/restless Current Patient Data Vital Signs Vital Signs Date Time Temp Pulse Resp B/P (MAP) Pulse Ox O2 Delivery O2 Flow Rate FiO2 01/25/19 19:26 20 97 Room Air 01/25/19 18:37 98.3 71 120/65 (83) 98.3 EKG EKG [] Radiology/Procedures Radiology/Procedures [] Course & Med Decision Making Course & Med Decision Making Patient was offered labs for evaluation of his sickle cell. Patient had retic count on 12/16/18 while in the ER which was 2.1 NL. Pt wanted IM injection of pain med and opted for no labs. 2010: Patient received pain medication and had improvement in pain and was comfortable with home discharge. Patient was advised on following up with his doctor tomorrow for reevaluation and further care for ongoing back pain/sickle cell concerns. Education provided on signs and symptoms to return to ER. Discharge instructions were discussed. Patient to follow-up with primary care physician if symptoms persist or with any concerns. Dragon Disclaimer Dragon Disclaimer This electronic medical record was generated, in whole or in part, using a voice recognition dictation system. Departure Departure Impression: Primary Impression: Back pain Disposition: 01 HOME, SELF-CARE Condition: STABLE Referrals: UNKNOWN PCP NAME (PCP) Patient Instructions: Back Pain, Adult Additional Instructions: Follow-up with your doctor tomorrow for further care/re-evaluation and discuss your episode of increased pain. Continue your prescribed medications as directed. ERNIE BENITEZ APRN Jan 25, 2019 19:45
[2019-01-25 20:04] VITALS: BP 106/58
== END 2019-01-25 20:07 | disposition home or self-care (01) ==
LOC: ER 18:28
DX: M54.9 Dorsalgia, unspecified (principal); D57.00 Hb-SS disease with crisis, unspecified
CPT/HCPCS: 96372; 99283; J1170

== ENCOUNTER 2019-02-09 18:49 | Emergency (ER) | payer BC ==
[~2019-02-09] VITALS: Ht 175.3 cm; Wt 72.6 kg
[2019-02-09] MEDS ORDERED: IV NORMAL SALINE 1000ML BAG 1,000 ML IV ONE (20:30)
--- NOTE | 2019-02-09 20:36 | PHYS DOC ---
Past Medical History Past Medical History: Sickle Cell Disease Additional Past Medical Histor: AVASCULAR NECROSIS OF R HIP Past Surgical History: Other Additional Past Surgical Histo: L HIP BONE GRAFT Smoking: Cigarettes, Less than 1pk/day Alcohol Use: None Drug Use: Marijuana Adult General Chief Complaint Chief Complaint: BACK PAIN - NO INJURY HPI HPI Patient is a 23 year old male presents with diffuse body pain. Patient states he has a history of sickle cell and it feels like a sickle cell crisis. The pain started yesterday. Rates his pain as 8 out of 10 states he has oxycodone at home is tried that it is not working. Review of Systems Review of Systems Constitutional: Denies fever or chills but reports body wide pain. Eyes: Denies change in visual acuity, redness, or eye pain [] HENT: Denies nasal congestion or sore throat [] Respiratory: Denies cough or shortness of breath [] Cardiovascular: No additional information not addressed in HPI [] GI: Denies abdominal pain, nausea, vomiting, bloody stools or diarrhea [] : Denies dysuria or hematuria [] Musculoskeletal: Denies back pain or joint pain [] Integument: Denies rash or skin lesions [] Neurologic: Denies headache, focal weakness or sensory changes [] Endocrine: Denies polyuria or polydipsia [] Complete systems were reviewed and found to be within normal limits, except as documented in this note. Current Medications Current Medications Current Medications Medications (Trade) Dose Ordered Sig/Glenis Start Time Stop Time Status Last Admin Dose Admin Fentanyl Citrate (Fentanyl 2ml Vial) 100 mcg 1X ONCE 02/09/19 21:00 02/09/19 21:01 DC 02/09/19 20:48 100 MCG Ketorolac Tromethamine (Toradol 15mg Vial) 15 mg 1X ONCE 02/09/19 21:00 02/09/19 21:01 DC 02/09/19 20:47 15 MG Ondansetron HCl (Zofran) 4 mg 1X ONCE 02/09/19 21:00 02/09/19 21:01 DC 02/09/19 20:47 4 MG Sodium Chloride 1,000 ml @ 1,000 mls/hr 1X ONCE 02/09/19 20:30 02/09/19 21:29 DC 02/09/19 20:48 1,000 MLS/HR Allergies Allergies Allergies Coded Allergies Type Severity Reaction Last Updated Verified No Known Drug Allergies 11/06/17 No Physical Exam Physical Exam Constitutional: Well developed, well nourished, no acute distress, non-toxic appearance. [] HENT: Normocephalic, atraumatic, bilateral external ears normal, oropharynx moist, no oral exudates, nose normal. [] Eyes: PERRLA, EOMI, conjunctiva normal, no discharge. [] Neck: Normal range of motion, no tenderness, supple, no stridor. [] Cardiovascular:Heart rate regular rhythm, no murmur [] Lungs & Thorax: Bilateral breath sounds clear to auscultation [] Abdomen: Bowel sounds normal, soft, no tenderness, no masses, no pulsatile masses. [] Skin: Warm, dry, no erythema, no rash. [] Extremities: No tenderness, no cyanosis, no clubbing, ROM intact, no edema. [] Neurologic: Alert and oriented X 3, normal motor function, normal sensory function, no focal deficits noted. [] Psychologic: Affect normal, judgement normal, mood normal. [] Current Patient Data Vital Signs Vital Signs Date Time Temp Pulse Resp B/P (MAP) Pulse Ox O2 Delivery O2 Flow Rate FiO2 02/09/19 21:01 73 18 130/73 (92) 95 Room Air 02/09/19 20:10 98.3 98.3 EKG EKG [] Radiology/Procedures Radiology/Procedures [] Course & Med Decision Making Course & Med Decision Making Pertinent Labs and Imaging studies reviewed. (See chart for details) Will give fluids and pain medications to reduce pain. Pain reduced with fluids and pain medications. Will d/c home. Dragon Disclaimer Dragon Disclaimer This electronic medical record was generated, in whole or in part, using a voice recognition dictation system. Departure Departure Impression: Primary Impression: Sickle cell pain crisis Disposition: HOME, SELF-CARE Condition: STABLE Referrals: UNKNOWN PCP NAME (PCP) Patient Instructions: Sickle Cell Pain Crisis Additional Instructions: Thank you for visiting [facility]. We appreciate you trusting us with your care. If any additional problems come up don't hesitate to return to visit us. Please follow up with your primary care provider so they can plan mailna tional care if needed and know about the problem that you had. If symptoms worsen come back to the Emergency Department. Any concerning symptoms that start such as chest pain, shortness of Air, weakness or numbness on one side of the body, running high fevers or any other concerning symptoms return to the ER. RC CRAFT APRN Feb 09, 2019 20:36
[2019-02-09] MEDS ORDERED: KETOROLAC 15 MG/ML VIAL. IV ONE (21:00)
[2019-02-09] MEDS ORDERED: ONDANSETRON PF 4 MG/2 ML VIAL. IV ONE (21:00)
[2019-02-09] MEDS ORDERED: fentaNYL PF VIAL 100 MCG/2 ML VIAL IV ONE (21:00)
[2019-02-09 22:31] VITALS: BP 130/74
== END 2019-02-09 23:00 | disposition home or self-care (01) ==
LOC: ER 18:49
DX: D57.00 Hb-SS disease with crisis, unspecified (principal); F17.210 Nicotine dependence, cigarettes, uncomplicated
CPT/HCPCS: 96374; 96375; 99285; J1885; J2405; J3010; J7030; 99284-25

== ENCOUNTER 2019-02-14 14:00 | Emergency (ER) | payer BC ==
[~2019-02-14] VITALS: Ht 177.8 cm; Wt 72.6 kg
[2019-02-14] MEDS ORDERED: HYDROmorphone 2 MG/ML VIAL IV ONE ×2 (15:00→16:45)
--- NOTE | 2019-02-14 15:00 | PHYS DOC ---
Past Medical History Past Medical History: Sickle Cell Disease Additional Past Medical Histor: AVASCULAR NECROSIS OF R HIP Past Surgical History: Other Additional Past Surgical Histo: L HIP BONE GRAFT Alcohol Use: None Drug Use: Heroin, Marijuana Adult General Chief Complaint Chief Complaint: BACK PAIN - NO INJURY HPI HPI Patient is a 23 year old male who presents with states he has been limits her last peak. Patient's is a sickle cell patient and states he is having lower back pain since 1999 last night. Patient states he sees Dr. Saravia at [facility] and has an appointment tomorrow. Patient denies nausea, vomiting, diarrhea, chest pain, shortness of air, headache, dizziness, weaknesses. Review of Systems Review of Systems Constitutional: Denies fever or chills [] Eyes: Denies change in visual acuity, redness, or eye pain [] HENT: Denies nasal congestion or sore throat [] Respiratory: Denies cough or shortness of breath [] Cardiovascular: No additional information not addressed in HPI [] GI: Denies abdominal pain, nausea, vomiting, bloody stools or diarrhea [] : Denies dysuria or hematuria [] Musculoskeletal: Low back pain or joint pain [] Integument: Denies rash or skin lesions [] Neurologic: Denies headache, focal weakness or sensory changes [] Endocrine: Denies polyuria or polydipsia [] All other systems were reviewed and found to be within normal limits, except as documented in this note. Current Medications Current Medications Current Medications Medications (Trade) Dose Ordered Sig/Glenis Start Time Stop Time Status Last Admin Dose Admin Hydromorphone HCl (Dilaudid) 1 mg 1X ONCE 02/14/19 15:00 02/14/19 15:01 DC 02/14/19 15:16 1 MG Sodium Chloride 1,000 ml @ 1,000 mls/hr 1X ONCE 02/14/19 16:15 02/14/19 17:14 02/14/19 16:15 1,000 MLS/HR Allergies Allergies Allergies Coded Allergies Type Severity Reaction Last Updated Verified No Known Drug Allergies 11/06/17 No Physical Exam Physical Exam Constitutional: Well developed, well nourished, acute distress due to pain, non-toxic appearance. [] HENT: Normocephalic, atraumatic, bilateral external ears normal, oropharynx moist, no oral exudates, nose normal. [] Eyes: PERRLA, EOMI, conjunctiva normal, no discharge. [] Neck: Normal range of motion, no tenderness, supple, no stridor. [] Cardiovascular:Heart rate regular rhythm, no murmur [] Lungs & Thorax: Bilateral breath sounds clear to auscultation [] Abdomen: Bowel sounds normal, soft, no tenderness, no masses, no pulsatile masses. [] Skin: Warm, dry, no erythema, no rash. [] Back: No tenderness, no CVA tenderness. [] Extremities: No tenderness, no cyanosis, no clubbing, ROM intact, no edema. [] Neurologic: Alert and oriented X 3, normal motor function, normal sensory function, no focal deficits noted. [] Psychologic: Affect normal, judgement normal, mood normal. [] Current Patient Data Vital Signs Vital Signs Date Time Temp Pulse Resp B/P (MAP) Pulse Ox O2 Delivery O2 Flow Rate FiO2 02/14/19 15:46 20 96 Room Air 02/14/19 14:40 97.8 75 127/82 (97) 97.8 Lab Values Laboratory Tests Test 02/14/19 14:37 White Blood Count 12.7 x10^3/uL (4.0-11.0) H Red Blood Count 3.09 x10^6/uL (4.30-5.70) L Hemoglobin 9.8 g/dL (13.0-17.5) L Hematocrit 27.9 % (39.0-53.0) L Mean Corpuscular Volume 88 fL (79-100) Mean Corpuscular Hemoglobin 31 pg (25-35) Mean Corpuscular Hemoglobin Concent 35 g/dL (31-37) Red Cell Distribution Width 20.8 % (11.5-14.5) H Platelet Count 475 x10^3/uL (140-400) H Neutrophils (%) (Auto) 64 % (31-73) Lymphocytes (%) (Auto) 26 % (24-48) Monocytes (%) (Auto) 8 % (0-9) Eosinophils (%) (Auto) 2 % (0-3) Basophils (%) (Auto) 1 % (0-3) Neutrophils # (Auto) 8.1 x10^3uL (1.8-7.7) H Lymphocytes # (Auto) 3.3 x10^3/uL (1.0-4.8) Monocytes # (Auto) 1.0 x10^3/uL (0.0-1.1) Eosinophils # (Auto) 0.2 x10^3/uL (0.0-0.7) Basophils # (Auto) 0.1 x10^3/uL (0.0-0.2) Platelet Estimate Pending Absolute Reticulocyte Count 0.118 x10^6/uL (0.020-0.120) Percent Reticulocyte Count 3.8 % (0.5-2.3) H Immature Reticulocyte Fraction 0.72 (0.20-0.60) H Sodium Level 140 mmol/L (136-145) Potassium Level 3.9 mmol/L (3.5-5.1) Chloride Level 104 mmol/L (98-107) Carbon Dioxide Level 24 mmol/L (21-32) Anion Gap 12 (6-14) Blood Urea Nitrogen 9 mg/dL (8-26) Creatinine 0.7 mg/dL (0.7-1.3) Estimated GFR (Cockcroft-Gault) 172.3 BUN/Creatinine Ratio 13 (6-20) Glucose Level 97 mg/dL (70-99) Calcium Level 8.9 mg/dL (8.5-10.1) Total Bilirubin 1.4 mg/dL (0.2-1.0) H Aspartate Amino Transferase (AST) 44 U/L (15-37) H Alanine Aminotransferase (ALT) 27 U/L (16-63) Alkaline Phosphatase 101 U/L (46-116) Total Protein 8.0 g/dL (6.4-8.2) Albumin 4.1 g/dL (3.4-5.0) Albumin/Globulin Ratio 1.1 (1.0-1.7) Laboratory Tests 02/14/19 14:37 Laboratory Tests 02/14/19 14:37 EKG EKG [] Radiology/Procedures Radiology/Procedures [] Course & Med Decision Making Course & Med Decision Making Patient is a 23 year old male who presents with states he has been limits her last peak. Patient's is a sickle cell patient and states he is having lower back pain since 1999 last night. Patient states he sees Dr. Saravia at [facility] and has an appointment tomorrow. Patient denies nausea, vomiting, diarrhea, chest pain, shortness of air, headache, dizziness, weaknesses. Alert and oriented. Patient is crying in the room. He speaks in full clear sentences. Answers all questions appropriately. Lungs are clear to auscultation all lobes. Vital Signs within normal limits. Afebrile. He has no extremity edema. Abdomen is soft and nontender. Patient states his pain is a 10 out of 10 and is only in his lower back and does not radiate states it is aching and sharp. Skin is pink warm and dry. PERRLA. Patient states he is not having trouble urinating denies any dysuria symptoms. Bloodwork is comparable to when he was here last on 12/16/18. Patient is not in a sickle cell crisis. Patient has been sleeping after the first dose of Dilaudid. Patient has received a bolus of normal saline. I have gone over the labs with Dr. Christensen in the ED today. Patient is wanting more pain medicine before he leaves. Patient will be given another 1mg Dilaudid. Patient will be discharged home and he is to keep his appointment follow-up with his doctor tomorrow at the sickle cell clinic at [facility] as planned. Dragon Disclaimer Candelario Disclaimer This electronic medical record was generated, in whole or in part, using a voice recognition dictation system. Departure Departure Impression: Primary Impression: Back pain Disposition: 01 HOME, SELF-CARE Condition: STABLE Referrals: UNKNOWN PCP NAME (PCP) Patient Instructions: Sickle Cell Pain Crisis Additional Instructions: Follow-up with your Dr. Chencho Eaton at the sickle cell clinic tomorrow as scheduled. Take your medications as prescribed. Drink plenty of fluids. Problem Qualifiers Primary Impression: Back pain Back pain location: low back pain Chronicity: chronic Back pain laterality: bilateral Sciatica presence: without sciatica Qualified Codes: M54.5 - Low back pain; G89.29 - Other chronic pain [employer] Feb 14, 2019 15:00
[2019-02-14] MEDS ORDERED: IV NORMAL SALINE 1000ML BAG 1,000 ML IV ONE ×2 (15:15→16:15)
[2019-02-14 15:24] LABS: BASO # 0.1 x10^3/uL (0.0-0.2); BASO % 1 % (0-3); EOS # 0.2 x10^3/uL (0.0-0.7); EOS % 2 % (0-3); HEMATOCRIT 27.9 % (39.0-53.0); HEMOGLOBIN 9.8 g/dL (13.0-17.5); LYMPH # 3.3 x10^3/uL (1.0-4.8); LYMPH % 26 % (24-48); MEAN CORPUSCULAR HEMOGLOBIN 31 pg (25-35); MEAN CORPUSCULAR HGB CONC 35 g/dL (31-37); MEAN CORPUSCULAR VOLUME 88 fL (79-100); MONO % 8 % (0-9); NEUT # 8.1 x10^3uL (1.8-7.7); NEUT % 64 % (31-73); PLATELET COUNT 475 x10^3/uL (140-400); RED BLOOD COUNT 3.16 x10^6/uL (4.30-5.70); RED CELL DISTRIBUTION WIDTH 20.8 % (11.5-14.5); WHITE BLOOD COUNT 12.7 x10^3/uL (4.0-11.0)
[2019-02-14 15:55] LABS: CALCIUM 8.9 mg/dL (8.5-10.1); CREATININE 0.7 mg/dL (0.7-1.3); GFR 172.3; POTASSIUM 3.9 mmol/L (3.5-5.1)
[2019-02-14 16:00] LABS: ALBUMIN 4.1 g/dL (3.4-5.0); ALBUMIN/GLOBULIN RATIO 1.1 (1.0-1.7); TOTAL BILIRUBIN 1.4 mg/dL (0.2-1.0)
[2019-02-14 16:32] VITALS: BP 111/67
[2019-02-14] MEDS ORDERED: ONDANSETRON PF 4 MG/2 ML VIAL. IV ONE (16:45)
[2019-02-14 18:11] LABS: ANISOCYTOSIS MOD; PLT ESTIMATE INCREASED (ADEQUATE); SCHISTOCYTES OCC
== END 2019-02-14 17:00 | disposition home or self-care (01) ==
LOC: ER 14:00
DX: M54.5 Low back pain (principal); G89.29 Other chronic pain; D57.1 Sickle-cell disease without crisis
CPT/HCPCS: 36415; 80053; 85025; 85045; 96374; 96375; 96376; 99284; J1170; J2405; J7030

== ENCOUNTER 2019-03-14 01:05 | Emergency (ER) | payer BC ==
[~2019-03-14] VITALS: Ht 175.3 cm; Wt 72.1 kg
[2019-03-14 01:26] LABS: BASO # 0.2 x10^3/uL (0.0-0.2); BASO % 2 % (0-3); EOS # 0.1 x10^3/uL (0.0-0.7); EOS % 1 % (0-3); HEMATOCRIT 28.7 % (39.0-53.0); HEMOGLOBIN 10.3 g/dL (13.0-17.5); LYMPH # 3.4 x10^3/uL (1.0-4.8); LYMPH % 33 % (24-48); MEAN CORPUSCULAR HEMOGLOBIN 31 pg (25-35); MEAN CORPUSCULAR HGB CONC 36 g/dL (31-37); MEAN CORPUSCULAR VOLUME 86 fL (79-100); MONO # 0.7 x10^3/uL (0.0-1.1); MONO % 7 % (0-9); NEUT # 5.8 x10^3/uL (1.8-7.7); NEUT % 56 % (31-73); PLATELET COUNT 337 x10^3/uL (140-400); RED BLOOD COUNT 3.34 x10^6/uL (4.30-5.70); RED CELL DISTRIBUTION WIDTH 22.5 % (11.5-14.5); WHITE BLOOD COUNT 10.3 x10^3/uL (4.0-11.0)
[2019-03-14] MEDS ORDERED: MORPHINE SULFATE 10 MG/ML VIAL. IV ONE ×2 (01:30→02:30)
[2019-03-14] MEDS ORDERED: IV NORMAL SALINE 1000ML BAG 1,000 ML IV ONE (01:30)
[2019-03-14] MEDS ORDERED: ONDANSETRON PF 4 MG/2 ML VIAL. IV ONE (01:30)
[2019-03-14 01:34] LABS: CALCIUM 8.7 mg/dL (8.5-10.1); CREATININE 0.7 mg/dL (0.7-1.3); GFR 172.3; POTASSIUM 3.8 mmol/L (3.5-5.1)
[2019-03-14 01:40] LABS: ALBUMIN 4.1 g/dL (3.4-5.0); ALBUMIN/GLOBULIN RATIO 1.1 (1.0-1.7); MAGNESIUM 1.9 mg/dL (1.8-2.4); TOTAL BILIRUBIN 1.6 mg/dL (0.2-1.0); TOTAL PROTEIN 7.9 g/dL (6.4-8.2)
--- NOTE | 2019-03-14 01:48 | PHYS DOC ---
Past Medical History Past Medical History: Sickle Cell Disease Additional Past Medical Histor: AVASCULAR NECROSIS OF R HIP Past Surgical History: Other Additional Past Surgical Histo: L HIP BONE GRAFT Alcohol Use: None Drug Use: Heroin, Marijuana Adult General Chief Complaint Chief Complaint: Sickle Cell Crisis HPI HPI Patient is a 23yo AA M w/ PMHx of sickle cell disease and prior sickle cell crises presents w/ back pain radiating to the chest that began Wednesday. The pa in is different than prior acute chest crises experienced prior. Patient complains of back, shoulder, and thigh pain that is constant and unrelieved with at home medications. Previously seen in ED 1mo ago for sickle cell crisis; last admission for sickle cell crisis was 1.5yr ago. Review of Systems Review of Systems Constitutional: Denies fever or chills Eyes: Denies redness or eye pain or changes in vision HENT: Denies nasal congestion or sore throat Respiratory: Denies cough or shortness of breath Cardiovascular: Reports chest pain related to sickle cell disease GI: Denies abdominal pain, nausea, or vomiting : Denies dysuria or hematuria Musculoskeletal: Reports back, should, and thigh pain related to sickle cell disease Neurologic: Denies headache, focal weakness or sensory changes Complete systems were reviewed and found to be within normal limits, except as documented in this note. Current Medications Current Medications Current Medications Medications (Trade) Dose Ordered Sig/Glenis Start Time Stop Time Status Last Admin Dose Admin Ketorolac Tromethamine (Toradol 15mg Vial) 15 mg 1X ONCE 03/14/19 02:30 03/14/19 02:31 Morphine Sulfate (Morphine Sulfate) 10 mg 1X ONCE 03/14/19 02:30 03/14/19 02:31 Ondansetron HCl (Zofran) 4 mg 1X ONCE 03/14/19 01:30 03/14/19 01:31 DC 03/14/19 01:22 4 MG Sodium Chloride 1,000 ml @ 1,000 mls/hr 1X ONCE 03/14/19 01:30 03/14/19 02:29 03/14/19 01:23 1,000 MLS/HR Allergies Allergies Allergies Coded Allergies Type Severity Reaction Last Updated Verified No Known Drug Allergies 11/06/17 No Physical Exam Physical Exam Constitutional: conversational, mild acute distress, non-toxic appearance. [] HENT: Normocephalic, atraumatic [] Eyes: PERRL, conjunctiva normal, no discharge. [] Neck: Normal range of motion, no tenderness, supple. [] Cardiovascular: regular rate and rhythm w/o gallops, rubs, or murmurs [] Lungs & Thorax: breath sounds clear to auscultation b/l and throughout; denies tenderness to anterior chest wall palpation [] Abdomen: soft, no tenderness, no masses, non-distended. [] Skin: Warm, dry, no erythema. [] MSK: tenderness to back, shoulders, and thighs without deformity. [] Extremities: no cyanosis, no clubbing, no edema. [] Neurologic: Alert and oriented X 3, normal motor function, normal sensory function, no focal deficits noted. [] Psychologic: Affect normal, judgement normal, mood normal. [] Current Patient Data Vital Signs Vital Signs Date Time Temp Pulse Resp B/P (MAP) Pulse Ox O2 Delivery O2 Flow Rate FiO2 03/14/19 01:23 18 98 Room Air 03/14/19 01:15 98.3 61 98.3 03/14/19 01:15 135/79 (97) Lab Values Laboratory Tests Test 03/14/19 01:17 White Blood Count 10.3 x10^3/uL (4.0-11.0) Red Blood Count 3.32 x10^6/uL (4.30-5.70) L Hemoglobin 10.3 g/dL (13.0-17.5) L Hematocrit 28.7 % (39.0-53.0) L Mean Corpuscular Volume 86 fL (79-100) Mean Corpuscular Hemoglobin 31 pg (25-35) Mean Corpuscular Hemoglobin Concent 36 g/dL (31-37) Red Cell Distribution Width 22.5 % (11.5-14.5) H Platelet Count 337 x10^3/uL (140-400) Neutrophils (%) (Auto) 56 % (31-73) Lymphocytes (%) (Auto) 33 % (24-48) Monocytes (%) (Auto) 7 % (0-9) Eosinophils (%) (Auto) 1 % (0-3) Basophils (%) (Auto) 2 % (0-3) Neutrophils # (Auto) 5.8 x10^3/uL (1.8-7.7) Lymphocytes # (Auto) 3.4 x10^3/uL (1.0-4.8) Monocytes # (Auto) 0.7 x10^3/uL (0.0-1.1) Eosinophils # (Auto) 0.1 x10^3/uL (0.0-0.7) Basophils # (Auto) 0.2 x10^3/uL (0.0-0.2) Platelet Estimate Pending Absolute Reticulocyte Count 0.094 x10^6/uL (0.020-0.120) Percent Reticulocyte Count 2.8 % (0.5-2.3) H Immature Reticulocyte Fraction 0.67 (0.20-0.60) H Sodium Level 140 mmol/L (136-145) Potassium Level 3.8 mmol/L (3.5-5.1) Chloride Level 104 mmol/L (98-107) Carbon Dioxide Level 23 mmol/L (21-32) Anion Gap 13 (6-14) Blood Urea Nitrogen 8 mg/dL (8-26) Creatinine 0.7 mg/dL (0.7-1.3) Estimated GFR (Cockcroft-Gault) 172.3 BUN/Creatinine Ratio 11 (6-20) Glucose Level 126 mg/dL (70-99) H Calcium Level 8.7 mg/dL (8.5-10.1) Magnesium Level 1.9 mg/dL (1.8-2.4) Total Bilirubin 1.6 mg/dL (0.2-1.0) H Aspartate Amino Transferase (AST) 37 U/L (15-37) Alanine Aminotransferase (ALT) 21 U/L (16-63) Alkaline Phosphatase 132 U/L (46-116) H Total Protein 7.9 g/dL (6.4-8.2) Albumin 4.1 g/dL (3.4-5.0) Albumin/Globulin Ratio 1.1 (1.0-1.7) Laboratory Tests 03/14/19 01:17 Laboratory Tests 03/14/19 01:17 EKG EKG @0119 Sinus bradycardia at 58bpm, J point elevation noted to V2-V3, NO STEMI, QRS 102ms, QT/QTc 416/408ms, LVH Radiology/Procedures Radiology/Procedures CXR 2 view (preliminary interpretation by ED physician) no acute process noted. [] Course & Med Decision Making Course & Med Decision Making Pertinent Labs and Imaging studies reviewed. (See chart for details) Patient is a 23yo AA M w/ PMHx significant for SCD who presents w/ back, shoulder, thigh pain and chest discomfort. Patient advised to use at home medications to manage chronic condition and related pain. Patient stable for discharge with outpatient follow-up with PCP at [facility] in March. Discussed findings and plan with patient and family, who acknowledge understanding and agreement.[] Dragon Disclaimer Dragon Disclaimer This electronic medical record was generated, in whole or in part, using a voice recognition dictation system. Departure Departure Impression: Primary Impression: Sickle cell pain crisis Disposition: HOME, SELF-CARE Condition: IMPROVED Referrals: NO PCP (PCP) Patient Instructions: Sickle Cell Pain Crisis, [id number] Additional Instructions: Increase fluid hydration. Take previously prescribed pain medications as needed. RC CARABALLO DO Mar 14, 2019 01:48
[2019-03-14] MEDS ORDERED: KETOROLAC 15 MG/ML VIAL. IV ONE (02:30)
[2019-03-14 02:40] LABS: CREATINE KINASE 54 U/L (39-308)
[2019-03-14 02:42] VITALS: BP 116/58
[2019-03-14 02:54] LABS: ANISOCYTOSIS MOD; PLT ESTIMATE ADEQUATE (ADEQUATE); POLYCHROMASIA SLIGHT; SICKLE CELLS MOD; TARGET CELLS MOD
[2019-03-14 02:55] LABS: OVALOCYTES FEW; SCHISTOCYTES OCC; TEAR DROP CELLS OCC
--- NOTE | 2019-03-14 05:07 | RAD ---
CHEST PA LATERAL History: Chest pain, sickle cell crisis. Comparison: Two-view chest, December 16, 2018. Findings: The cardiomediastinal silhouette is normal. Pulmonary vasculature is normal. Tiny bilateral calcified granulomas are noted in the lungs. The lungs are clear. No pleural effusion or pneumothorax is seen. There is no acute bone abnormality. IMPRESSION: No acute cardiopulmonary process. Electronically signed by: Luke Kamara MD (03/14/2019 5:04 AM) [facility]
--- NOTE | 2019-03-14 05:38 | EKG ---
[facility] [address] [place] [address] Test Date: 2019-03-14 Test Time: 01:19:30 Pat Name: RASHAUN CHURCH Department: Room: Gender: M Invertebrate Paleontologist: : 1995 Requested By: RC CARABALLO Order Number: [id number] Reading MD: Measurements Intervals [place] Rate: 58 P: 52 CT: 176 QRS: 69 QRSD: 102 T: 22 QT: 416 QTc: 408 Interpretive Statements SINUS RHYTHM QRS(T) CONTOUR ABNORMALITY CONSIDER INFERIOR MYOCARDIAL DAMAGE POSSIBLY ABNORMAL ECG RI6.01 Unconfirmed report No previous ECG available for comparison
== END 2019-03-14 02:45 | disposition home or self-care (01) ==
LOC: ER 01:05
DX: D57.00 Hb-SS disease with crisis, unspecified (principal); M54.9 Dorsalgia, unspecified; M25.511 Pain in right shoulder; M25.512 Pain in left shoulder; M79.652 Pain in left thigh; M79.651 Pain in right thigh; R07.89 Other chest pain; R00.1 Bradycardia, unspecified
CPT/HCPCS: 36415; 71046; 80053; 82553; 83735; 84484; 85025; 85045; 93005; 96374; 96375; 96376; 99285; J1885; J2270; J2405; J7030

== ENCOUNTER 2019-03-14 20:45 | Emergency (ER) | payer BC ==
[~2019-03-14] VITALS: Ht 175.3 cm; Wt 70.8 kg
[2019-03-14 21:15] VITALS: BP 139/77
== END 2019-03-14 21:55 | disposition left against medical advice (07) ==
LOC: ER 20:45
DX: D57.1 Sickle-cell disease without crisis (principal); Z53.21 Procedure and treatment not carried out due to patient leaving prior to being seen by health care provider

== ENCOUNTER 2019-04-20 05:00 | Emergency (ER) | payer BC ==
[~2019-04-20] VITALS: Ht 175.3 cm; Wt 73.5 kg
[2019-04-20 05:56] LABS: BASO # 0.1 x10^3/uL (0.0-0.2); BASO % 1 % (0-3); EOS # 0.2 x10^3/uL (0.0-0.7); EOS % 3 % (0-3); HEMATOCRIT 25.5 % (39.0-53.0); HEMOGLOBIN 9.3 g/dL (13.0-17.5); LYMPH # 3.3 x10^3/uL (1.0-4.8); LYMPH % 43 % (24-48); MEAN CORPUSCULAR HEMOGLOBIN 31 pg (25-35); MEAN CORPUSCULAR HGB CONC 36 g/dL (31-37); MEAN CORPUSCULAR VOLUME 85 fL (79-100); MONO % 13 % (0-9); NEUT % 39 % (31-73); PLATELET COUNT 310 x10^3/uL (140-400); RED CELL DISTRIBUTION WIDTH 23.6 % (11.5-14.5); WHITE BLOOD COUNT 7.7 x10^3/uL (4.0-11.0)
[2019-04-20] MEDS ORDERED: IV NORMAL SALINE 1000ML BAG 1,000 ML IV SCH (06:00)
[2019-04-20] MEDS ORDERED: fentaNYL PF VIAL 100 MCG/2 ML VIAL IV ONE ×2 (06:00→07:15)
--- NOTE | 2019-04-20 06:00 | PHYS DOC ---
Past Medical History Past Medical History: Sickle Cell Disease, Vascular Disease Additional Past Medical Histor: AVASCULAR NECROSIS OF R HIP (JADA HARPER MD) Past Surgical History: No Surgical History Additional Past Surgical Histo: L HIP BONE GRAFT (JADA HARPER MD) Alcohol Use: None Drug Use: None (JADA HARPER MD) Adult General Chief Complaint Chief Complaint: sickle cell crisis HPI HPI Patient is a 23 year old male with history of sickle cell who presents with complaining of sickle cell crisis. Patient complaining of left lower back pain and right shoulder pain for more than portion treated at clinic with fentanyl at became worse again since yesterday as a constant and sharp pain and rated his pain 8/10. Patient denies injury, hematuria, chest pain, shortness of breath, fever and chills. Patient states he took his home Percocet 10 mg tonight without improvement of his pain. (JADA HARPER MD) Review of Systems Review of Systems Constitutional: Denies fever or chills [] Eyes: Denies change in visual acuity, redness, or eye pain [] HENT: Denies nasal congestion or sore throat [] Respiratory: Denies cough or shortness of breath [] Cardiovascular: No additional information not addressed in HPI [] GI: Denies abdominal pain, nausea, vomiting, bloody stools or diarrhea [] : Denies dysuria or hematuria [] Musculoskeletal: Reports back pain and joint pain Integument: Denies rash or skin lesions [] Neurologic: Denies headache, focal weakness or sensory changes [] Endocrine: Denies polyuria or polydipsia [] All other systems were reviewed and found to be within normal limits, except as documented in this note. (JADA HARPER MD) Current Medications Current Medications Current Medications Medications (Trade) Dose Ordered Sig/Glenis Start Time Stop Time Status Last Admin Dose Admin Fentanyl Citrate (Fentanyl 2ml Vial) 50 mcg 1X ONCE 04/20/19 07:15 04/20/19 07:19 DC 04/20/19 07:23 50 MCG Sodium Chloride 1,000 ml @ 1,000 mls/hr Q1H 04/20/19 06:00 04/20/19 06:59 DC 04/20/19 06:04 1,000 MLS/HR (BRYAN HOFFMAN DO) Allergies Allergies Allergies Coded Allergies Type Severity Reaction Last Updated Verified No Known Drug Allergies 11/06/17 No (BRYAN HOFFMAN DO) Physical Exam Physical Exam Constitutional: Well developed, well nourished, mild distress, non-toxic appearance. [] HENT: Normocephalic, atraumatic. Eyes: PERRLA, EOMI, conjunctiva normal, no discharge. [] Neck: Normal range of motion, no tenderness, supple, no stridor. [] Cardiovascular:Heart rate regular rhythm, no murmur [] Lungs & Thorax: Bilateral breath sounds clear to auscultation [] Abdomen: Bowel sounds normal, soft, no tenderness, no masses, no pulsatile masses. [] Skin: Warm, dry, no erythema, no rash. [] Back: No tenderness, no CVA tenderness. [] Extremities: No tenderness, no cyanosis, no clubbing, ROM intact, no edema. [] Neurologic: Alert and oriented X 3, no focal deficits noted. [] Psychologic: Affect normal, judgement normal, mood normal. [] (JADA HARPER MD) Current Patient Data Vital Signs Vital Signs Date Time Temp Pulse Resp B/P (MAP) Pulse Ox O2 Delivery O2 Flow Rate FiO2 04/20/19 07:23 97 Room Air 04/20/19 07:17 70 109/61 (77) 04/20/19 05:05 98.5 20 98.5 (BRYAN HOFFMAN DO) Lab Values Laboratory Tests Test 04/20/19 05:27 White Blood Count 7.7 x10^3/uL (4.0-11.0) Red Blood Count 3.03 x10^6/uL (4.30-5.70) L Hemoglobin 9.3 g/dL (13.0-17.5) L Hematocrit 25.5 % (39.0-53.0) L Mean Corpuscular Volume 85 fL (79-100) Mean Corpuscular Hemoglobin 31 pg (25-35) Mean Corpuscular Hemoglobin Concent 36 g/dL (31-37) Red Cell Distribution Width 23.6 % (11.5-14.5) H Platelet Count 310 x10^3/uL (140-400) Neutrophils (%) (Auto) 39 % (31-73) Lymphocytes (%) (Auto) 43 % (24-48) Monocytes (%) (Auto) 13 % (0-9) H Eosinophils (%) (Auto) 3 % (0-3) Basophils (%) (Auto) 1 % (0-3) Neutrophils # (Auto) 3.0 x10^3/uL (1.8-7.7) Lymphocytes # (Auto) 3.3 x10^3/uL (1.0-4.8) Monocytes # (Auto) 1.0 x10^3/uL (0.0-1.1) Eosinophils # (Auto) 0.2 x10^3/uL (0.0-0.7) Basophils # (Auto) 0.1 x10^3/uL (0.0-0.2) Platelet Estimate Adequate (ADEQUATE) Large Platelets Occ Anisocytosis Mod Sickle Cells Few Target Cells Occ Ovalocytes Few Absolute Reticulocyte Count 0.130 x10^6/uL (0.020-0.120) Percent Reticulocyte Count 4.3 % (0.5-2.3) H Immature Reticulocyte Fraction 0.65 (0.20-0.60) H Sodium Level 141 mmol/L (136-145) Potassium Level 4.2 mmol/L (3.5-5.1) Chloride Level 104 mmol/L (98-107) Carbon Dioxide Level 27 mmol/L (21-32) Anion Gap 10 (6-14) Blood Urea Nitrogen 9 mg/dL (8-26) Creatinine 0.6 mg/dL (0.7-1.3) L Estimated GFR (Cockcroft-Gault) 205.8 BUN/Creatinine Ratio 15 (6-20) Glucose Level 95 mg/dL (70-99) Calcium Level 8.9 mg/dL (8.5-10.1) Total Bilirubin 1.4 mg/dL (0.2-1.0) H Aspartate Amino Transferase (AST) 32 U/L (15-37) Alanine Aminotransferase (ALT) 23 U/L (16-63) Alkaline Phosphatase 116 U/L (46-116) Total Protein 7.3 g/dL (6.4-8.2) Albumin 3.9 g/dL (3.4-5.0) Albumin/Globulin Ratio 1.1 (1.0-1.7) Laboratory Tests 04/20/19 05:27 Laboratory Tests 04/20/19 05:27 (BRYAN HOFFMAN DO) EKG EKG [] (JADA HARPER MD) Radiology/Procedures Radiology/Procedures [] (JADA HARPER MD) Course & Med Decision Making Course & Med Decision Making Pertinent Labs are pending. Evaluation of patient in ER showed 23-year-old male patient presented to ER with sickle cell crisis and complaining of low back pain and shoulder. Patient had unremarkable physical exam. Sign out given to at 0600 for further evaluation and final disposition. Discussed current findings and plan with patient and family, who acknowledge understanding and agreement. (JADA HARPER MD) Course & Med Decision Making Received patient from Dr. Hraper at 6 am. Patient was doing fine, pain is under control. His lab works were unremarkable with his condition, will discharge him home, follow up with his family doctor next week. (BRYAN HOFFMAN DO) Dragon Disclaimer Dragon Disclaimer This electronic medical record was generated, in whole or in part, using a voice recognition dictation system. (JADA HARPER MD) Departure Departure Impression: Primary Impression: Sickle cell pain crisis Additional Impression: Back pain Disposition: HOME, SELF-CARE Condition: IMPROVED Referrals: NO PCP (PCP) Follow up with your family doctor on Wednesday for reevaluation. Patient Instructions: Sickle Cell Pain Crisis Problem Qualifiers JADA HARPER MD Apr 20, 2019 06:00 BRYAN HOFFMAN DO Apr 20, 2019 08:15
[2019-04-20 06:13] LABS: CALCIUM 8.9 mg/dL (8.5-10.1); CREATININE 0.6 mg/dL (0.7-1.3); GFR 205.8; POTASSIUM 4.2 mmol/L (3.5-5.1)
[2019-04-20 06:19] LABS: ALBUMIN 3.9 g/dL (3.4-5.0); ALBUMIN/GLOBULIN RATIO 1.1 (1.0-1.7); TOTAL BILIRUBIN 1.4 mg/dL (0.2-1.0); TOTAL PROTEIN 7.3 g/dL (6.4-8.2)
[2019-04-20 07:33] LABS: ANISOCYTOSIS MOD; PLT ESTIMATE ADEQUATE (ADEQUATE)
[2019-04-20 07:34] LABS: OVALOCYTES FEW; TARGET CELLS OCC
[2019-04-20 07:35] LABS: SICKLE CELLS FEW
[2019-04-20 08:17] VITALS: BP 101/54
== END 2019-04-20 08:46 | disposition home or self-care (01) ==
LOC: ER 05:00
DX: D57.00 Hb-SS disease with crisis, unspecified (principal); M54.5 Low back pain; M25.511 Pain in right shoulder
CPT/HCPCS: 36415; 80053; 85025; 85045; 96374; 96376; 99284; J3010; J7030

== ENCOUNTER 2019-04-26 00:51 | Emergency (ER) | payer BC ==
[~2019-04-26] VITALS: Ht 175.3 cm; Wt 72.6 kg
[2019-04-26 01:20] VITALS: BP 141/81
[2019-04-26] MEDS ORDERED: IV NORMAL SALINE 1000ML BAG 1,000 ML IV ONE (02:30)
[2019-04-26] MEDS ORDERED: fentaNYL PF VIAL 100 MCG/2 ML VIAL IV ONE (02:30)
--- NOTE | 2019-04-26 02:37 | PHYS DOC ---
Past Medical History Past Medical History: Sickle Cell Disease, Vascular Disease Additional Past Medical Histor: AVASCULAR NECROSIS OF R HIP Past Surgical History: No Surgical History Additional Past Surgical Histo: L HIP BONE GRAFT Alcohol Use: Rarely Drug Use: Marijuana Adult General Chief Complaint Chief Complaint: sickle cell crisis [facility] HPI Patient is a 23 year old male patient with history of sickle cell and frequent emergency room visits who presents with complaining of hurting all over. Patient states he has had pain all over and more pain in his back for the last couple days after he ran out of his home Percocet. She states he has appointment with his primary care physician on May 01 and rated his pain 10 over 10 skin for pain medication. Patient denies chest pain, fever and chills, nausea and vomiting. Review of Systems Review of Systems Constitutional: Denies fever or chills [] Eyes: Denies change in visual acuity, redness, or eye pain [] HENT: Denies nasal congestion or sore throat [] Respiratory: Denies cough or shortness of breath [] Cardiovascular: No additional information not addressed in HPI [] GI: Denies abdominal pain, nausea, vomiting, bloody stools or diarrhea [] : Denies dysuria or hematuria [] Musculoskeletal: Reports back pain and myalgia Integument: Denies rash or skin lesions [] Neurologic: Denies headache, focal weakness or sensory changes [] Endocrine: Denies polyuria or polydipsia [] All other systems were reviewed and found to be within normal limits, except as documented in this note. Current Medications Current Medications Current Medications Medications (Trade) Dose Ordered Sig/Glenis Start Time Stop Time Status Last Admin Dose Admin Fentanyl Citrate (Fentanyl 2ml Vial) 50 mcg 1X ONCE 04/26/19 02:30 04/26/19 02:31 DC 04/26/19 02:09 50 MCG Sodium Chloride 1,000 ml @ 1,000 mls/hr 1X ONCE 04/26/19 02:30 04/26/19 03:02 DC 04/26/19 02:09 1,000 MLS/HR Allergies Allergies Allergies Coded Allergies Type Severity Reaction Last Updated Verified No Known Drug Allergies 11/06/17 No Physical Exam Physical Exam Constitutional: Well developed, well nourished, mild distress, non-toxic appearance. [] HENT: Normocephalic, atraumatic. Eyes: PERRLA, EOMI, conjunctiva normal, no discharge. [] Neck: Normal range of motion, no tenderness, supple, no stridor. [] Cardiovascular:Heart rate regular rhythm, no murmur [] Lungs & Thorax: Bilateral breath sounds clear to auscultation [] Abdomen: Bowel sounds normal, soft, no tenderness, no masses, no pulsatile masses. [] Skin: Warm, dry, no erythema, no rash. [] Back: No tenderness, no CVA tenderness. [] Extremities: No tenderness, no cyanosis, no clubbing, ROM intact, no edema. [] Neurologic: Alert and oriented X 3, no focal deficits noted. [] Psychologic: Affect normal, judgement normal, mood normal. [] Current Patient Data Vital Signs Vital Signs Date Time Temp Pulse Resp B/P (MAP) Pulse Ox O2 Delivery O2 Flow Rate FiO2 04/26/19 02:09 Room Air 04/26/19 01:20 98.8 76 16 141/81 (101) 99 98.8 EKG EKG [] Radiology/Procedures Radiology/Procedures [] Course & Med Decision Making Course & Med Decision Making discharge: I've spoken with the patient and/or caregivers. I've explained the patient's condition, diagnosis and treatment plan based on information available to me at this time. I've answered the patient's and/or caregivers questions and addressed any concerns. The patient and/or caregivers have a good understanding the patient's diagnosis, condition and treatment plan as can be expected at this point. Vital signs have been stabilized. The patient's condition is stable for discharge from the emergency department. The patient will pursue further outpatient evaluation with her primary care provider or other designated consulting physician as outlined in the discharge instructions. Patient and/or caregivers are agreeable to this plan of care and follow-up instructions have been explained in detail. The patient and/or caregivers have received these instructions in written format and expressed un derstanding of these discharge instructions. The patient and her caregivers are aware that if any significant change in condition or worsening of symptoms should prompt him to immediately return to this of the closest emergency department. If an emergent department is not readily available I would encourage him to call 911. Candelario Disclaimer Candelario Disclaimer This electronic medical record was generated, in whole or in part, using a voice recognition dictation system. Departure Departure Impression: Primary Impression: Sickle cell pain crisis Disposition: HOME, SELF-CARE (at 0245) Condition: IMPROVED Referrals: UNKNOWN PCP NAME (PCP) Patient Instructions: Sickle Cell Pain Crisis Additional Instructions: Drink plenty of liquids Follow-up with your primary care physician in 1-2 days Return to ER if not getting better JADA MCDONALD MD Apr 26, 2019 02:37
== END 2019-04-26 03:02 | disposition home or self-care (01) ==
LOC: ER 00:51
DX: D57.00 Hb-SS disease with crisis, unspecified (principal)
CPT/HCPCS: 96374; 99284; J3010; J7030

== ENCOUNTER 2019-05-06 22:29 | Emergency (ER) | payer BC ==
[~2019-05-06] VITALS: Ht 175.3 cm; Wt 72.6 kg
[2019-05-06] MEDS ORDERED: ONDANSETRON PF 4 MG/2 ML VIAL. IV ONE (23:00)
[2019-05-06] MEDS ORDERED: IPRATRPIUM/ALBUTEROL 0.5/2.5MG 3 ML NEBU. NEB ONE (23:00)
[2019-05-06 23:05] LABS: BASO # 0.1 x10^3/uL (0.0-0.2); BASO % 1 % (0-3); EOS # 0.3 x10^3/uL (0.0-0.7); EOS % 4 % (0-3); HEMATOCRIT 21.3 % (39.0-53.0); HEMOGLOBIN 7.8 g/dL (13.0-17.5); LYMPH # 2.1 x10^3/uL (1.0-4.8); LYMPH % 31 % (24-48); MEAN CORPUSCULAR HEMOGLOBIN 31 pg (25-35); MEAN CORPUSCULAR HGB CONC 37 g/dL (31-37); MEAN CORPUSCULAR VOLUME 84 fL (79-100); MONO # 0.8 x10^3/uL (0.0-1.1); MONO % 12 % (0-9); NEUT # 3.6 x10^3/uL (1.8-7.7); NEUT % 53 % (31-73); PLATELET COUNT 302 x10^3/uL (140-400); RED BLOOD COUNT 2.54 x10^6/uL (4.30-5.70); RED CELL DISTRIBUTION WIDTH 22.7 % (11.5-14.5); WHITE BLOOD COUNT 6.9 x10^3/uL (4.0-11.0)
[2019-05-06 23:16] LABS: CALCIUM 8.8 mg/dL (8.5-10.1); CREATININE 0.6 mg/dL (0.7-1.3); GFR 205.8; POTASSIUM 3.9 mmol/L (3.5-5.1)
[2019-05-06 23:22] LABS: ALBUMIN 3.8 g/dL (3.4-5.0); ALBUMIN/GLOBULIN RATIO 1.2 (1.0-1.7); TOTAL BILIRUBIN 1.5 mg/dL (0.2-1.0); TOTAL PROTEIN 7.1 g/dL (6.4-8.2)
[2019-05-06] MEDS ORDERED: IV NORMAL SALINE 1000ML BAG 1,000 ML IV ONE (23:30)
[2019-05-06] MEDS ORDERED: MORPHINE SULFATE 10 MG/ML VIAL. IV ONE (23:30)
[2019-05-07 00:01] LABS: ANISOCYTOSIS MOD; PLT ESTIMATE ADEQUATE (ADEQUATE); POLYCHROMASIA SLIGHT; TARGET CELLS FEW
[2019-05-07 00:02] LABS: MICROCYTOSIS SLIGHT; SCHISTOCYTES OCC; SICKLE CELLS MOD
--- NOTE | 2019-05-07 00:07 | RAD ---
Two-view chest dated 05/06/2019. Comparison made to 03/14/2019. CLINICAL INDICATION: Cough. FINDINGS: PA and lateral views obtained. Heart and mediastinal contours are stable. Lungs are somewhat hyperinflated but otherwise clear. No consolidation or pleural effusion. No pneumothorax. IMPRESSION: No acute radiographic abnormality. Electronically signed by: Geoffrey Valladares MD (05/07/2019 12:04 AM) [facility]
--- NOTE | 2019-05-07 00:40 | PHYS DOC ---
Past Medical History Past Medical History: Sickle Cell Disease, Vascular Disease Additional Past Medical Histor: AVASCULAR NECROSIS OF R HIP (ROMY MEDEL APRN) Past Surgical History: No Surgical History Additional Past Surgical Histo: L HIP BONE GRAFT (ROMY MEDEL APRN) Alcohol Use: Rarely Drug Use: Marijuana (ROMY MEDEL APRN) Attending Signature I have participated in the care of this patient and I have reviewed and agree with all pertinent clinical information above including history, exam, and recommendations. (ANGI DAVISON MD) Adult General Chief Complaint Chief Complaint: COUGH HPI HPI Patient is a 23 year old male with history of sickle cell who presents to the ED today complaining of cough, nasal congestion, shortness of breath, symptoms began 3 days ago. Patient states the girlfriend who is 39 weeks had similar symptoms a couple days ago before patient's symptoms began. Denies any fever. He states today he went to work at [employer] deep his entire shift then decided to come to the ED to be evaluated because of the end of the shift he felt dizzy. He states his symptoms are making his sickle cell generalized pain flare up. Of note he reports he was seen at a different hospital early this morning, he states he was worked up and sent home. He states he got diagnosed w ith an upper respiratory infection. (ROMY MEDEL APRN) Review of Systems Review of Systems Constitutional: Denies fever or chills [] Eyes: Denies change in visual acuity, redness, or eye pain [] HENT: Reports nasal congestion, denies sore throat [] Respiratory: Reports cough and shortness of breath [] Cardiovascular: No additional information not addressed in HPI [] GI: Denies abdominal pain, nausea, vomiting, bloody stools or diarrhea [] : Denies dysuria or hematuria [] Musculoskeletal: Denies back pain or joint pain [] Integument: Denies rash or skin lesions [] Neurologic: Denies headache, focal weakness or sensory changes [] All other systems were reviewed and found to be within normal limits, except as documented in this note. (ROMY MEDEL APRN) Current Medications Current Medications Current Medications Medications (Trade) Dose Ordered Sig/Glenis Start Time Stop Time Status Last Admin Dose Admin Albuterol/ Ipratropium (Duoneb) 3 ml 1X ONCE 05/06/19 23:00 05/06/19 23:01 DC 05/06/19 23:14 3 ML Morphine Sulfate (Morphine Sulfate) 5 mg 1X ONCE 05/06/19 23:30 05/06/19 23:31 DC 05/06/19 23:11 5 MG Ondansetron HCl (Zofran) 4 mg 1X ONCE 05/06/19 23:00 05/06/19 23:01 DC 05/06/19 22:55 4 MG Sodium Chloride 1,000 ml @ 1,000 mls/hr 1X ONCE 05/06/19 23:30 05/07/19 00:29 DC 05/06/19 23:11 1,000 MLS/HR (ANGI DAVISON MD) Allergies Allergies Allergies Coded Allergies Type Severity Reaction Last Updated Verified No Known Drug Allergies 11/06/17 No (ANGI DAVISON MD) Physical Exam Physical Exam Constitutional: Well developed, well nourished, no acute distress, non-toxic appearance. [] HENT: Normocephalic, atraumatic, bilateral external ears normal, oropharynx moist, no oral exudates, patient sounds congested nasally Eyes: PERRLA, EOMI, conjunctiva normal, no discharge. [] Neck: Normal range of motion, no tenderness, supple, no stridor. [] Cardiovascular:Heart rate regular rhythm, no murmur [] Lungs & Thorax: Bilateral breath sounds clear to auscultation [] Abdomen: Bowel sounds normal, soft, no tenderness, no masses, no pulsatile ma sses. [] Skin: Warm, dry, no erythema, no rash. [] Back: No tenderness, no CVA tenderness. [] Extremities: No tenderness, no cyanosis, no clubbing, ROM intact, no edema. [] Neurologic: Alert and oriented X 3, normal motor function, normal sensory function, no focal deficits noted. [] Psychologic: Affect normal, judgement normal, mood normal. [] (ROMY MEDEL APRN) Current Patient Data Vital Signs Vital Signs Date Time Temp Pulse Resp B/P (MAP) Pulse Ox O2 Delivery O2 Flow Rate FiO2 05/07/19 00:52 77 14 120/52 (74) 96 Room Air 05/06/19 22:30 98.6 98.6 (ANGI DAVISON MD) Lab Values Laboratory Tests Test 05/06/19 22:47 White Blood Count 6.9 x10^3/uL (4.0-11.0) Red Blood Count 2.50 x10^6/uL (4.30-5.70) L Hemoglobin 7.8 g/dL (13.0-17.5) L Hematocrit 21.3 % (39.0-53.0) L Mean Corpuscular Volume 84 fL (79-100) Mean Corpuscular Hemoglobin 31 pg (25-35) Mean Corpuscular Hemoglobin Concent 37 g/dL (31-37) Red Cell Distribution Width 22.7 % (11.5-14.5) H Platelet Count 302 x10^3/uL (140-400) Neutrophils (%) (Auto) 53 % (31-73) Lymphocytes (%) (Auto) 31 % (24-48) Monocytes (%) (Auto) 12 % (0-9) H Eosinophils (%) (Auto) 4 % (0-3) H Basophils (%) (Auto) 1 % (0-3) Neutrophils # (Auto) 3.6 x10^3/uL (1.8-7.7) Lymphocytes # (Auto) 2.1 x10^3/uL (1.0-4.8) Monocytes # (Auto) 0.8 x10^3/uL (0.0-1.1) Eosinophils # (Auto) 0.3 x10^3/uL (0.0-0.7) Basophils # (Auto) 0.1 x10^3/uL (0.0-0.2) Platelet Estimate Adequate (ADEQUATE) Giant Platelets Few Polychromasia Slight Anisocytosis Mod Microcytosis Slight Sickle Cells Mod Target Cells Few Schistocytes Occ Absolute Reticulocyte Count 0.118 x10^6/uL (0.020-0.120) Percent Reticulocyte Count 4.7 % (0.5-2.3) H Immature Reticulocyte Fraction 0.72 (0.20-0.60) H Sodium Level 144 mmol/L (136-145) Potassium Level 3.9 mmol/L (3.5-5.1) Chloride Level 108 mmol/L (98-107) H Carbon Dioxide Level 25 mmol/L (21-32) Anion Gap 11 (6-14) Blood Urea Nitrogen 7 mg/dL (8-26) L Creatinine 0.6 mg/dL (0.7-1.3) L Estimated GFR (Cockcroft-Gault) 205.8 BUN/Creatinine Ratio 12 (6-20) Glucose Level 83 mg/dL (70-99) Calcium Level 8.8 mg/dL (8.5-10.1) Total Bilirubin 1.5 mg/dL (0.2-1.0) H Aspartate Amino Transferase (AST) 26 U/L (15-37) Alanine Aminotransferase (ALT) 15 U/L (16-63) L Alkaline Phosphatase 102 U/L (46-116) Total Protein 7.1 g/dL (6.4-8.2) Albumin 3.8 g/dL (3.4-5.0) Albumin/Globulin Ratio 1.2 (1.0-1.7) Laboratory Tests 05/06/19 22:47 Laboratory Tests 05/06/19 22:47 (ANGI DAVISON MD) EKG EKG [address] Davison sinus rhythm HR 73 no STEMI[] (ROMY MEDEL APRN) Radiology/Procedures Radiology/Procedures []PROCEDURE: CHEST PA & LATERAL Two-view chest dated 05/06/2019. Comparison made to 03/14/2019. CLINICAL INDICATION: Cough. FINDINGS: PA and lateral views obtained. Heart and mediastinal contours are stable. Lungs are somewhat hyperinflated but otherwise clear. No consolidation or pleural effusion. No pneumothorax. IMPRESSION: No acute radiographic abnormality. Electronically signed by: Geoffrey Valladares MD (05/07/2019 12:04 AM) [facility] DICTATED and SIGNED BY: GEOFFREY VALLADARES MD DATE: 05/07/19 0004 (ROMY MEDEL APRN) Course & Med Decision Making Course & Med Decision Making Pertinent Labs and Imaging studies reviewed. (See chart for details) This is a 23-year-old male patient with history of sickle cell who presents to the ED today with symptoms consistent of an upper respiratory infection including cough nasal congestion, symptoms began 3 days ago. Girlfriend also had similar symptoms. Patient's workup including sickle cell results are negative for any acute findings. He was discharged to home. Follow-up with his own doctor on Wednesday. Encouraged him to get the prescription he has for his sickle cell medications and start using them. Encouraged to continue pushing fluids. (ROMY MEDEL APRN) Dragon Disclaimer Dragon Disclaimer This electronic medical record was generated, in whole or in part, using a voice recognition dictation system. (ROMY MEDEL APRN) Departure Departure Impression: Primary Impression: Sickle cell pain crisis Additional Impressions: Upper respiratory infection Cough Disposition: HOME, SELF-CARE Condition: STABLE Referrals: NON,STAFF (PCP) follow up with your doctor on wednesday Patient Instructions: Cough, Adult, [id number], Sickle Cell Pain Crisis, [id number], Upper Respiratory Infection, Adult, [id number] Additional Instructions: You were dilated in the emergency room with symptoms consistent of an upper respiratory infection. Please follow-up with your own doctor next week. Ensure you are using your sickle cell medications. Push fluids. Problem Qualifiers Additional Impressions: Upper respiratory infection URI type: unspecified URI Qualified Codes: J06.9 - Acute upper respiratory infection, unspecified ROMY MEDEL APRN May 07, 2019 00:40 ANGI DAVISON MD May 07, 2019 04:29
[2019-05-07 00:52] VITALS: BP 120/52
--- NOTE | 2019-05-07 07:50 | EKG ---
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
== END 2019-05-07 00:55 | disposition home or self-care (01) ==
LOC: ER 22:29
DX: J06.9 Acute upper respiratory infection, unspecified (principal); D57.00 Hb-SS disease with crisis, unspecified; R09.81 Nasal congestion; R42 Dizziness and giddiness
CPT/HCPCS: 36415; 71046; 80053; 85025; 85045; 93005; 94640; 96361; 96374; 96375; 99285; J2270; J2405; J7030; J7620

== ENCOUNTER 2019-05-21 19:14 | Emergency (ER) | payer BC ==
[~2019-05-21] VITALS: Ht 175.3 cm; Wt 72.6 kg
[2019-05-21] MEDS ORDERED: MORPHINE SULFATE 10 MG/ML VIAL. IV ONE ×2 (20:45→22:30)
[2019-05-21] MEDS ORDERED: KETOROLAC 15 MG/ML VIAL. IV ONE (20:45)
[2019-05-21] MEDS ORDERED: ONDANSETRON PF 4 MG/2 ML VIAL. IVP ONE (20:45)
[2019-05-21] MEDS ORDERED: IV NORMAL SALINE 1000ML BAG 1,000 ML IV ONE (20:45)
[2019-05-21 21:04] LABS: BASO # 0.1 x10^3/uL (0.0-0.2); BASO % 1 % (0-3); EOS # 0.2 x10^3/uL (0.0-0.7); EOS % 3 % (0-3); HEMATOCRIT 24.8 % (39.0-53.0); HEMOGLOBIN 9.1 g/dL (13.0-17.5); LYMPH # 2.7 x10^3/uL (1.0-4.8); LYMPH % 33 % (24-48); MEAN CORPUSCULAR HEMOGLOBIN 31 pg (25-35); MEAN CORPUSCULAR HGB CONC 37 g/dL (31-37); MEAN CORPUSCULAR VOLUME 85 fL (79-100); MONO # 0.8 x10^3/uL (0.0-1.1); MONO % 10 % (0-9); NEUT # 4.4 x10^3/uL (1.8-7.7); NEUT % 53 % (31-73); PLATELET COUNT 336 x10^3/uL (140-400); RED BLOOD COUNT 2.91 x10^6/uL (4.30-5.70); RED CELL DISTRIBUTION WIDTH 24.6 % (11.5-14.5); WHITE BLOOD COUNT 8.3 x10^3/uL (4.0-11.0)
[2019-05-21 21:13] LABS: CALCIUM 9.5 mg/dL (8.5-10.1); CREATININE 0.7 mg/dL (0.7-1.3); GFR 172.3; POTASSIUM 4.4 mmol/L (3.5-5.1)
[2019-05-21 21:19] LABS: ALBUMIN 4.3 g/dL (3.4-5.0); ALBUMIN/GLOBULIN RATIO 1.2 (1.0-1.7); TOTAL BILIRUBIN 1.8 mg/dL (0.2-1.0); TOTAL PROTEIN 7.8 g/dL (6.4-8.2)
[2019-05-21 21:34] LABS: PLT ESTIMATE ADEQUATE (ADEQUATE)
[2019-05-21 21:35] LABS: ANISOCYTOSIS MOD; POIKILOCYTOSIS MOD; POLYCHROMASIA MOD; SICKLE CELLS PRESENT
[2019-05-21 21:36] LABS: TARGET CELLS FEW
[2019-05-21 22:34] VITALS: BP 119/55
--- NOTE | 2019-05-21 23:34 | PHYS DOC ---
Past Medical History Past Medical History: Sickle Cell Disease, Vascular Disease Additional Past Medical Histor: AVASCULAR NECROSIS OF R HIP Past Surgical History: No Surgical History Additional Past Surgical Histo: L HIP BONE GRAFT Alcohol Use: Rarely Drug Use: Marijuana Adult General Chief Complaint Chief Complaint: GENERALIZED BODY ACHES HPI HPI Patient is a 23 year old -Filipino male with history of sickle cell disease who presents with acute pain crisis. Patient reports bilateral arm and leg pain starting 2 days ago. Denies chest pain shortness of breath, fever, or abdominal pain no headache, strokelike symptoms. No other acute symptoms or complaints. She states he is father and is spending the past 3 days at [facility] with his child. During that time the patient did not take his oxycodone as scheduled. He reports feeling cold on the hospital is a likely trigger of his symptoms. Patient is well-known to this emergency de partment is been seen here greater than 12 times the past 12 months for the same. [] Review of Systems Review of Systems Review symptoms as per history of present illness. All other review symptoms are negative. All other systems were reviewed and found to be within normal limits, except as documented in this note. Current Medications Current Medications Current Medications Medications (Trade) Dose Ordered Sig/Glenis Start Time Stop Time Status Last Admin Dose Admin Ketorolac Tromethamine (Toradol 15mg Vial) 15 mg 1X ONCE 05/21/19 20:45 05/21/19 20:46 DC 05/21/19 21:05 15 MG Morphine Sulfate (Morphine Sulfate) 5 mg 1X ONCE 05/21/19 22:30 05/21/19 22:31 DC 05/21/19 22:25 5 MG Ondansetron HCl (Zofran) 4 mg 1X ONCE 05/21/19 20:45 05/21/19 20:46 DC 05/21/19 21:05 4 MG Sodium Chloride 1,000 ml @ 1,000 mls/hr 1X ONCE 05/21/19 20:45 05/21/19 21:44 DC 05/21/19 21:03 1,000 MLS/HR Allergies Allergies Allergies Coded Allergies Type Severity Reaction Last Updated Verified No Known Drug Allergies 11/06/17 No Physical Exam Physical Exam Constitutional: Well developed, well nourished, no acute distress. [] HENT: Normocephalic, atraumatic, bilateral external ears normal, oropharynx moist, nose normal. [] Eyes: PERRLA, EOMI, conjunctiva normal, no discharge. [] Neck: Normal range of motion, no tenderness. [] Cardiovascular:Heart rate regular rhythm, no murmur [] Lungs & Thorax: Bilateral breath sounds clear to auscultation [] Abdomen: Bowel sounds normal, soft, no tenderness. [] Skin: Warm, dry. [] Back: No tenderness. [] Extremities: No tenderness, no edema. [] Neurologic: Alert and oriented X 3, normal motor function, normal sensory function, no focal deficits noted. [] Psychologic: Affect normal, judgement normal, mood normal. [] Current Patient Data Vital Signs Vital Signs Date Time Temp Pulse Resp B/P (MAP) Pulse Ox O2 Delivery O2 Flow Rate FiO2 05/21/19 22:34 62 17 119/55 (76) 98 05/21/19 22:25 Room Air 05/21/19 20:04 98.8 98.8 Lab Values Laboratory Tests Test 05/21/19 20:30 White Blood Count 8.3 x10^3/uL (4.0-11.0) Red Blood Count 2.88 x10^6/uL (4.30-5.70) L Hemoglobin 9.1 g/dL (13.0-17.5) L Hematocrit 24.8 % (39.0-53.0) L Mean Corpuscular Volume 85 fL (79-100) Mean Corpuscular Hemoglobin 31 pg (25-35) Mean Corpuscular Hemoglobin Concent 37 g/dL (31-37) Red Cell Distribution Width 24.6 % (11.5-14.5) H Platelet Count 336 x10^3/uL (140-400) Neutrophils (%) (Auto) 53 % (31-73) Lymphocytes (%) (Auto) 33 % (24-48) Monocytes (%) (Auto) 10 % (0-9) H Eosinophils (%) (Auto) 3 % (0-3) Basophils (%) (Auto) 1 % (0-3) Neutrophils # (Auto) 4.4 x10^3/uL (1.8-7.7) Lymphocytes # (Auto) 2.7 x10^3/uL (1.0-4.8) Monocytes # (Auto) 0.8 x10^3/uL (0.0-1.1) Eosinophils # (Auto) 0.2 x10^3/uL (0.0-0.7) Basophils # (Auto) 0.1 x10^3/uL (0.0-0.2) Platelet Estimate Adequate (ADEQUATE) Polychromasia Mod Poikilocytosis Mod Anisocytosis Mod Sickle Cells Present Target Cells Few Absolute Reticulocyte Count 0.134 x10^6/uL (0.020-0.120) Percent Reticulocyte Count 4.6 % (0.5-2.3) H Immature Reticulocyte Fraction 0.76 (0.20-0.60) H Sodium Level 141 mmol/L (136-145) Potassium Level 4.4 mmol/L (3.5-5.1) Chloride Level 105 mmol/L (98-107) Carbon Dioxide Level 29 mmol/L (21-32) Anion Gap 7 (6-14) Blood Urea Nitrogen 7 mg/dL (8-26) L Creatinine 0.7 mg/dL (0.7-1.3) Estimated GFR (Cockcroft-Gault) 172.3 BUN/Creatinine Ratio 10 (6-20) Glucose Level 83 mg/dL (70-99) Calcium Level 9.5 mg/dL (8.5-10.1) Total Bilirubin 1.8 mg/dL (0.2-1.0) H Aspartate Amino Transferase (AST) 42 U/L (15-37) H Alanine Aminotransferase (ALT) 32 U/L (16-63) Alkaline Phosphatase 124 U/L (46-116) H Total Protein 7.8 g/dL (6.4-8.2) Albumin 4.3 g/dL (3.4-5.0) Albumin/Globulin Ratio 1.2 (1.0-1.7) Laboratory Tests 05/21/19 20:30 Laboratory Tests 05/21/19 20:30 EKG EKG [] Radiology/Procedures Radiology/Procedures [] Course & Med Decision Making Course & Med Decision Making Pertinent Labs and Imaging studies reviewed. (See chart for details) [Unremarkable physical exam. Patient does not appear to be in acute distress. Patient's labs are baseline without evidence of acute sickle cell crisis. ] Dragon Disclaimer Dragon Disclaimer This electronic medical record was generated, in whole or in part, using a voice recognition dictation system. 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
== END 2019-05-21 23:42 | disposition home or self-care (01) ==
LOC: ER 19:14
DX: D57.1 Sickle-cell disease without crisis (principal)
CPT/HCPCS: 36415; 80053; 85025; 85045; 96374; 96375; 96376; 99284; J1885; J2270; J2405; J7030

== ENCOUNTER 2019-05-22 11:33 | Emergency (ER) | payer BC ==
[~2019-05-22] VITALS: Ht 175.3 cm; Wt 72.6 kg
[2019-05-22] MEDS ORDERED: fentaNYL PF VIAL 100 MCG/2 ML VIAL IV STA (13:09)
[2019-05-22] MEDS ORDERED: IV NORMAL SALINE 1000ML BAG 1,000 ML IV ONE (13:15)
--- NOTE | 2019-05-22 13:32 | PHYS DOC ---
Past Medical History Past Medical History: Sickle Cell Disease, Vascular Disease Additional Past Medical Histor: AVASCULAR NECROSIS OF R HIP Past Surgical History: No Surgical History Additional Past Surgical Histo: L HIP BONE GRAFT Alcohol Use: Rarely Drug Use: Marijuana Adult General Chief Complaint Chief Complaint: OTHER COMPLAINTS HPI HPI Patient is a 23 year old L who presents with body wide pain. The patient is a history of sickle cell. He rates his pain as 10 in severity and sharp. He states the pain started on . Review of Systems Review of Systems Constitutional: Denies fever or chills. Reports body wide pain. Eyes: Denies change in visual acuity, redness, or eye pain [] HENT: Denies nasal congestion or sore throat [] Respiratory: Denies cough or shortness of breath [] Cardiovascular: No additional information not addressed in HPI [] GI: Denies abdominal pain, nausea, vomiting, bloody stools or diarrhea [] : Denies dysuria or hematuria [] Musculoskeletal: Denies back pain or joint pain [] Integument: Denies rash or skin lesions [] Neurologic: Denies headache, focal weakness or sensory changes [] Endocrine: Denies polyuria or polydipsia [] Complete systems were reviewed and found to be within normal limits, except as documented in this note. Current Medications Current Medications Current Medications Medications (Trade) Dose Ordered Sig/[facility] Start Time Stop Time Status Last Admin Dose Admin Fentanyl Citrate (Fentanyl 2ml Vial) 100 mcg 1X ONCE 05/22/19 15:00 05/22/19 15:01 DC 05/22/19 15:31 100 MCG Sodium Chloride 1,000 ml @ 1,000 mls/hr 1X ONCE 05/22/19 13:15 05/22/19 14:14 DC 05/22/19 13:40 1,000 MLS/HR Allergies Allergies Allergies Coded Allergies Type Severity Reaction Last Updated Verified No Known Drug Allergies 11/06/17 No Physical Exam Physical Exam Constitutional: Well developed, well nourished, no acute distress, non-toxic appearance. [] HENT: Normocephalic, atraumatic, bilateral external ears normal, oropharynx moist, no oral exudates, nose normal. [] Eyes: PERRLA, EOMI, conjunctiva normal, no discharge. [] Neck: Normal range of motion, no tenderness, supple, no stridor. [] Cardiovascular:Heart rate regular rhythm, no murmur [] Lungs & Thorax: Bilateral breath sounds clear to auscultation [] Abdomen: Bowel sounds normal, soft, no tenderness, no masses, no pulsatile masses. [] Skin: Warm, dry, no erythema, no rash. [] Back: No tenderness, no CVA tenderness. [] Extremities: No tenderness, no cyanosis, no clubbing, ROM intact, no edema. [] Neurologic: Alert and oriented X 3, normal motor function, normal sensory funct ion, no focal deficits noted. [] Psychologic: Affect normal, judgement normal, mood normal. [] Current Patient Data Vital Signs Vital Signs Date Time Temp Pulse Resp B/P (MAP) Pulse Ox O2 Delivery O2 Flow Rate FiO2 05/22/19 12:01 97.8 98 16 130/59 (82) 95 Room Air 97.8 Lab Values Laboratory Tests Test 05/22/19 13:45 White Blood Count 13.1 x10^3/uL (4.0-11.0) H Red Blood Count 2.84 x10^6/uL (4.30-5.70) L Hemoglobin 8.7 g/dL (13.0-17.5) L Hematocrit 24.4 % (39.0-53.0) L Mean Corpuscular Volume 86 fL (79-100) Mean Corpuscular Hemoglobin 31 pg (25-35) Mean Corpuscular Hemoglobin Concent 36 g/dL (31-37) Red Cell Distribution Width 25.2 % (11.5-14.5) H Platelet Count 318 x10^3/uL (140-400) Neutrophils (%) (Auto) 73 % (31-73) Lymphocytes (%) (Auto) 17 % (24-48) L Monocytes (%) (Auto) 9 % (0-9) Eosinophils (%) (Auto) 1 % (0-3) Basophils (%) (Auto) 1 % (0-3) Neutrophils # (Auto) 9.5 x10^3/uL (1.8-7.7) H Lymphocytes # (Auto) 2.2 x10^3/uL (1.0-4.8) Monocytes # (Auto) 1.1 x10^3/uL (0.0-1.1) Eosinophils # (Auto) 0.2 x10^3/uL (0.0-0.7) Basophils # (Auto) 0.1 x10^3/uL (0.0-0.2) Sodium Level 142 mmol/L (136-145) Potassium Level 4.4 mmol/L (3.5-5.1) Chloride Level 106 mmol/L (98-107) Carbon Dioxide Level 26 mmol/L (21-32) Anion Gap 10 (6-14) Blood Urea Nitrogen 6 mg/dL (8-26) L Creatinine 0.6 mg/dL (0.7-1.3) L Estimated GFR (Cockcroft-Gault) 205.8 BUN/Creatinine Ratio 10 (6-20) Glucose Level 84 mg/dL (70-99) Calcium Level 9.1 mg/dL (8.5-10.1) Total Bilirubin 2.2 mg/dL (0.2-1.0) H Aspartate Amino Transferase (AST) 43 U/L (15-37) H Alanine Aminotransferase (ALT) 29 U/L (16-63) Alkaline Phosphatase 113 U/L (46-116) Total Protein 7.7 g/dL (6.4-8.2) Albumin 4.2 g/dL (3.4-5.0) Albumin/Globulin Ratio 1.2 (1.0-1.7) Laboratory Tests 05/22/19 13:45 Laboratory Tests 05/22/19 13:45 EKG EKG [] Radiology/Procedures Radiology/Procedures [] Course & Med Decision Making Course & Med Decision Making Pertinent Labs and Imaging studies reviewed. (See chart for details) Will get labs and give symptomatic treatment. Patient is feeling better after fluids and pain medication. Dragon Disclaimer Dragon Disclaimer This electronic medical record was generated, in whole or in part, using a voice recognition dictation system. Departure Departure Impression: Primary Impression: Sickle cell pain crisis Disposition: 01 HOME, SELF-CARE Condition: STABLE Referrals: UNKNOWN PCP NAME (PCP) Patient Instructions: Sickle Cell Pain Crisis Additional Instructions: Thank you for visiting [facility]. We appreciate you trusting us with your care. If any additional problems come up don't hesitate to return to visit us. Please follow up with your primary care provider so they can plan additional care if needed and know about the problem that you had. If symptoms worsen come back to the Emergency Department. Any concerning symptoms that start such as chest pain, shortness of air, weakness or numbness on one side of the body, running high fevers or any other concerning symptoms return to the ER. RC CRAFT APRN May 22, 2019 13:32
[2019-05-22 14:00] LABS: BASO # 0.1 x10^3/uL (0.0-0.2); BASO % 1 % (0-3); EOS # 0.2 x10^3/uL (0.0-0.7); EOS % 1 % (0-3); HEMATOCRIT 24.4 % (39.0-53.0); HEMOGLOBIN 8.7 g/dL (13.0-17.5); LYMPH # 2.2 x10^3/uL (1.0-4.8); LYMPH % 17 % (24-48); MEAN CORPUSCULAR HEMOGLOBIN 31 pg (25-35); MEAN CORPUSCULAR HGB CONC 36 g/dL (31-37); MEAN CORPUSCULAR VOLUME 86 fL (79-100); MONO # 1.1 x10^3/uL (0.0-1.1); MONO % 9 % (0-9); NEUT # 9.5 x10^3/uL (1.8-7.7); NEUT % 73 % (31-73); PLATELET COUNT 318 x10^3/uL (140-400); RED BLOOD COUNT 2.84 x10^6/uL (4.30-5.70); RED CELL DISTRIBUTION WIDTH 25.2 % (11.5-14.5); WHITE BLOOD COUNT 13.1 x10^3/uL (4.0-11.0)
[2019-05-22 14:07] LABS: CALCIUM 9.1 mg/dL (8.5-10.1); CREATININE 0.6 mg/dL (0.7-1.3); GFR 205.8; POTASSIUM 4.4 mmol/L (3.5-5.1)
[2019-05-22 14:13] LABS: ALBUMIN 4.2 g/dL (3.4-5.0); ALBUMIN/GLOBULIN RATIO 1.2 (1.0-1.7); TOTAL BILIRUBIN 2.2 mg/dL (0.2-1.0); TOTAL PROTEIN 7.7 g/dL (6.4-8.2)
[2019-05-22] MEDS ORDERED: fentaNYL PF VIAL 100 MCG/2 ML VIAL IV ONE (15:00)
[2019-05-22 15:15] VITALS: BP 121/78
== END 2019-05-22 16:03 | disposition home or self-care (01) ==
LOC: ER 11:33
DX: D57.00 Hb-SS disease with crisis, unspecified (principal)
CPT/HCPCS: 36415; 80053; 85025; 85651; 96374; 96376; 99284; J3010; J7030

== ENCOUNTER 2019-05-25 00:04 | Emergency (ER) | payer BC ==
[~2019-05-25] VITALS: Ht 175.3 cm; Wt 72.6 kg
[2019-05-25] MEDS ORDERED: IV NORMAL SALINE 1000ML BAG 1,000 ML IV ONE ×2 (00:15→02:00)
[2019-05-25] MEDS ORDERED: fentaNYL PF VIAL 100 MCG/2 ML VIAL IV ONE (00:30)
--- NOTE | 2019-05-25 00:30 | PHYS DOC ---
Past Medical History Past Medical History: Sickle Cell Disease, Vascular Disease Additional Past Medical Histor: AVASCULAR NECROSIS OF R HIP Past Surgical History: No Surgical History Additional Past Surgical Histo: L HIP BONE GRAFT Alcohol Use: Rarely Drug Use: Marijuana Adult General Chief Complaint Chief Complaint: General Complaint HPI HPI 23-year-old male presents to emergency department complaints of sickle cell pain. Patient was seen here on May 22 for similar complaints. He describes pain in the upper and lower back. Denies any fever, cough, shortness of breath. She was seen at [facility] for follow-up, his next appointment is May 29. Patient states is just on oxycodone 10 mg every 6 hours, records previously reviewed reveal no long-acting pain medication. Review of Systems Review of Systems Constitutional: Denies fever or chills [] Respiratory: Denies cough or shortness of breath [] Cardiovascular: No additional information not addressed in HPI [] GI: Denies abdominal pain, nausea, vomiting, bloody stools or diarrhea [] : Denies dysuria or hematuria [] Musculoskeletal: Upper and lower back Integument: Denies rash or skin lesions [] Neurologic: Denies headache, focal weakness or sensory changes [] All other systems were reviewed and found to be within normal limits, except as documented in this note. Current Medications Current Medications Current Medications Medications (Trade) Dose Ordered Sig/Glenis Start Time Stop Time Status Last Admin Dose Admin Fentanyl Citrate (Fentanyl 2ml Vial) 50 mcg 1X ONCE 05/25/19 00:30 05/25/19 00:31 DC 05/25/19 00:38 50 MCG Ketorolac Tromethamine (Toradol 30mg Vial) 30 mg 1X ONCE 05/25/19 02:00 05/25/19 02:01 DC 05/25/19 01:59 30 MG Sodium Chloride 1,000 ml @ 1,000 mls/hr 1X ONCE 05/25/19 02:00 05/25/19 02:59 05/25/19 01:59 1,000 MLS/HR Allergies Allergies Allergies Coded Allergies Type Severity Reaction Last Updated Verified No Known Drug Allergies 11/06/17 No Physical Exam Physical Exam Constitutional: Well developed, well nourished, no acute distress, non-toxic appearance. [] HENT: Normocephalic, atraumatic, bilateral external ears normal, oropharynx moist, no oral exudates, nose normal. [] Eyes: PERRLA, EOMI, conjunctiva normal, no discharge. [] Cardiovascular:Heart rate regular rhythm, no murmur [] Lungs & Thorax: Bilateral breath sounds clear to auscultation [] Abdomen: Bowel sounds normal, soft, no tenderness, no masses, no pulsatile masses. [] Skin: Warm, dry, no erythema, no rash. [] Back: No tenderness, no CVA tenderness. [] Extremities: No tenderness, no edema. [] Neurologic: Alert and oriented X 3, no focal deficits noted. [] Psychologic: Affect normal, judgement normal, mood normal. [] Current Patient Data Vital Signs Vital Signs Date Time Temp Pulse Resp B/P (MAP) Pulse Ox O2 Delivery O2 Flow Rate FiO2 05/25/19 01:36 70 89/53 (65) 97 Room Air 05/25/19 00:12 98.2 16 98.2 Lab Values Laboratory Tests Test 05/25/19 00:30 White Blood Count 7.7 x10^3/uL (4.0-11.0) Red Blood Count 2.75 x10^6/uL (4.30-5.70) L Hemoglobin 8.8 g/dL (13.0-17.5) L Hematocrit 24.1 % (39.0-53.0) L Mean Corpuscular Volume 85 fL (79-100) Mean Corpuscular Hemoglobin 31 pg (25-35) Mean Corpuscular Hemoglobin Concent 37 g/dL (31-37) Red Cell Distribution Width 24.8 % (11.5-14.5) H Platelet Count 307 x10^3/uL (140-400) Neutrophils (%) (Auto) 45 % (31-73) Lymphocytes (%) (Auto) 37 % (24-48) Monocytes (%) (Auto) 13 % (0-9) H Eosinophils (%) (Auto) 3 % (0-3) Basophils (%) (Auto) 1 % (0-3) Neutrophils # (Auto) 3.5 x10^3/uL (1.8-7.7) Lymphocytes # (Auto) 2.9 x10^3/uL (1.0-4.8) Monocytes # (Auto) 1.0 x10^3/uL (0.0-1.1) Eosinophils # (Auto) 0.2 x10^3/uL (0.0-0.7) Basophils # (Auto) 0.1 x10^3/uL (0.0-0.2) Segmented Neutrophils % 56 % (35-66) Lymphocytes % 30 % (24-48) Monocytes % 12 % (0-10) H Eosinophils % 2 % (0-5) Nucleated Red Blood Cells 5 Platelet Estimate Adequate (ADEQUATE) Polychromasia Slight Hypochromasia Mod Poikilocytosis Marked Anisocytosis Mod Spherocytes Occ Sickle Cells Few Target Cells Few Ovalocytes Mod Schistocytes Occ Absolute Reticulocyte Count 0.120 x10^6/uL (0.020-0.120) Percent Reticulocyte Count 4.3 % (0.5-2.3) H Immature Reticulocyte Fraction 0.75 (0.20-0.60) H Sodium Level 139 mmol/L (136-145) Potassium Level 3.9 mmol/L (3.5-5.1) Chloride Level 103 mmol/L (98-107) Carbon Dioxide Level 27 mmol/L (21-32) Anion Gap 9 (6-14) Blood Urea Nitrogen 9 mg/dL (8-26) Creatinine 0.9 mg/dL (0.7-1.3) Estimated GFR (Cockcroft-Gault) 128.9 BUN/Creatinine Ratio 10 (6-20) Glucose Level 125 mg/dL (70-99) H Calcium Level 9.3 mg/dL (8.5-10.1) Total Bilirubin 2.5 mg/dL (0.2-1.0) H Aspartate Amino Transferase (AST) 40 U/L (15-37) H Alanine Aminotransferase (ALT) 23 U/L (16-63) Alkaline Phosphatase 113 U/L (46-116) Total Protein 7.8 g/dL (6.4-8.2) Albumin 4.3 g/dL (3.4-5.0) Albumin/Globulin Ratio 1.2 (1.0-1.7) Laboratory Tests 05/25/19 00:30 Laboratory Tests 05/25/19 00:30 EKG EKG [] Radiology/Procedures Radiology/Procedures [] Course & Med Decision Making Course & Med Decision Making Pertinent Labs and Imaging studies reviewed. (See chart for details) []23-year-old male presents to emergency department complaints of sickle cell pain. Patient was seen here on May 22 for similar complaints. He describes pain in the upper and lower back. Denies any fever, cough, shortness of breath. She was seen at [facility] for follow-up, his next appointment is May 29. Patient states is just on oxycodone 10 mg every 6 hours, records previously reviewed reveal no long-acting pain medication. Patient received 50 �g IV fentanyl, IV fluids �2 L. Toradol 30 mg IV �1. Patient is out of pain medications, and again he is on no long-acting narcotic. Discussed with patient admission for IV fluids and continue pain medication however he declines, patient has a new baby at home. Discussed use of oxycodone 10 mg tablets 1 every 6 hours for the next 4 days, OxyContin twice a day �4 day s. Patient has follow-up at [facility] on May 29. Discussed dc plans. Patient states his pain is currently a 5, his baseline pain score is 3 daily Dragon Disclaimer Dragon Disclaimer This electronic medical record was generated, in whole or in part, using a voice recognition dictation system. Departure Departure Impression: Primary Impression: Sickle cell pain crisis Disposition: HOME, SELF-CARE Condition: IMPROVED Referrals: UNKNOWN PCP NAME (PCP) Patient Instructions: Sickle Cell Pain Crisis, [id number] Additional Instructions: Recommend follow up with PCP 3 - 5 days Follow up with [facility] as planned on 05/29 Return to the ER with worsening symptoms, intractable pain, fever, altered mental status Oxycontin rx provided for 4 days Oxycodone rx provided for 4 days Scripts Oxycodone Hcl (OXYCODONE HCL IMMED.RELEASE) 10 Mg Tablet 10 MG PO PRN Q6HRS PRN for PAIN for 4 Days, TAB 0 Refills Prov: ANGI DAVISON MD 05/25/19 Oxycodone Hcl (OXYCONTIN) 20 Mg Tab.er.12h 20 MG PO BID for PAIN for 4 Days, #8 TAB Prov: ANGI DAVISON MD 05/25/19 ANGI DAVISON MD May 25, 2019 00:29
[2019-05-25 00:44] LABS: BASO # 0.1 x10^3/uL (0.0-0.2); BASO % 1 % (0-3); EOS # 0.2 x10^3/uL (0.0-0.7); EOS % 3 % (0-3); HEMATOCRIT 24.1 % (39.0-53.0); HEMOGLOBIN 8.8 g/dL (13.0-17.5); LYMPH # 2.9 x10^3/uL (1.0-4.8); LYMPH % 37 % (24-48); MEAN CORPUSCULAR HEMOGLOBIN 31 pg (25-35); MEAN CORPUSCULAR HGB CONC 37 g/dL (31-37); MEAN CORPUSCULAR VOLUME 85 fL (79-100); MONO % 13 % (0-9); NEUT # 3.5 x10^3/uL (1.8-7.7); NEUT % 45 % (31-73); PLATELET COUNT 307 x10^3/uL (140-400); RED BLOOD COUNT 2.82 x10^6/uL (4.30-5.70); RED CELL DISTRIBUTION WIDTH 24.8 % (11.5-14.5); WHITE BLOOD COUNT 7.7 x10^3/uL (4.0-11.0)
[2019-05-25 00:54] LABS: CALCIUM 9.3 mg/dL (8.5-10.1); CREATININE 0.9 mg/dL (0.7-1.3); GFR 128.9; POTASSIUM 3.9 mmol/L (3.5-5.1)
[2019-05-25 01:01] LABS: ALBUMIN 4.3 g/dL (3.4-5.0); ALBUMIN/GLOBULIN RATIO 1.2 (1.0-1.7); TOTAL BILIRUBIN 2.5 mg/dL (0.2-1.0); TOTAL PROTEIN 7.8 g/dL (6.4-8.2)
[2019-05-25 01:15] LABS: % EOS 2 % (0-5); % LYMPHS 30 % (24-48); % MONOS 12 % (0-10); % SEGS 56 % (35-66); ANISOCYTOSIS MOD; NUCLEATED RBC 5; PLT ESTIMATE ADEQUATE (ADEQUATE); POIKILOCYTOSIS MARKED; POLYCHROMASIA SLIGHT
[2019-05-25 01:16] LABS: HYPOCHROMIA MOD; SICKLE CELLS FEW; TARGET CELLS FEW
[2019-05-25 01:17] LABS: OVALOCYTES MOD; SCHISTOCYTES OCC; SPHEROCYTES OCC
[2019-05-25] MEDS ORDERED: KETOROLAC 30 MG/ML VIAL. IV ONE (02:00)
[2019-05-25 02:36] VITALS: BP 108/58
[2019-05-25] MEDS ORDERED: OXYC20TA34 PO (02:39)
[2019-05-25] MEDS ORDERED: OXYC10TA PO (02:39)
== END 2019-05-25 02:55 | disposition home or self-care (01) ==
LOC: ER 00:04
DX: D57.00 Hb-SS disease with crisis, unspecified (principal); M54.6 Pain in thoracic spine; M54.5 Low back pain
CPT/HCPCS: 36415; 80053; 85007; 85025; 85045; 96374; 96375; 99284; J1885; J3010; J7030

== ENCOUNTER 2019-06-04 10:21 | Emergency (ER) | payer BC ==
[~2019-06-04] VITALS: Ht 175.3 cm; Wt 72.6 kg
[~2019-06-04 10:21] MED LIST changes: +OXYC10TA PO; +OXYC20TA34 PO
[2019-06-04] MEDS ORDERED: IV NORMAL SALINE 1000ML BAG 1,000 ML IV ONE (10:45)
[2019-06-04] MEDS ORDERED: ONDANSETRON PF 4 MG/2 ML VIAL. IVP ONE (10:45)
[2019-06-04] MEDS ORDERED: fentaNYL PF VIAL 100 MCG/2 ML VIAL IVP ONE (10:45)
[2019-06-04 11:08] LABS: BASO # 0.1 x10^3/uL (0.0-0.2); BASO % 1 % (0-3); EOS # 0.2 x10^3/uL (0.0-0.7); EOS % 3 % (0-3); HEMATOCRIT 25.2 % (39.0-53.0); HEMOGLOBIN 9.1 g/dL (13.0-17.5); LYMPH # 2.9 x10^3/uL (1.0-4.8); LYMPH % 45 % (24-48); MEAN CORPUSCULAR HEMOGLOBIN 31 pg (25-35); MEAN CORPUSCULAR HGB CONC 36 g/dL (31-37); MEAN CORPUSCULAR VOLUME 86 fL (79-100); MONO # 0.4 x10^3/uL (0.0-1.1); MONO % 7 % (0-9); NEUT # 2.9 x10^3/uL (1.8-7.7); NEUT % 44 % (31-73); PLATELET COUNT 422 x10^3/uL (140-400); RED BLOOD COUNT 2.92 x10^6/uL (4.30-5.70); RED CELL DISTRIBUTION WIDTH 24.2 % (11.5-14.5); WHITE BLOOD COUNT 6.5 x10^3/uL (4.0-11.0)
[2019-06-04 11:18] LABS: CALCIUM 9.9 mg/dL (8.5-10.1); CREATININE 0.6 mg/dL (0.7-1.3); GFR 205.8; POTASSIUM 3.9 mmol/L (3.5-5.1)
[2019-06-04 11:25] LABS: ALBUMIN 4.4 g/dL (3.4-5.0); TOTAL BILIRUBIN 1.6 mg/dL (0.2-1.0)
[2019-06-04] MEDS: fentaNYL PF VIAL 100 MCG/2 ML VIAL IV PRN ×2 (11:31→12:22)
[2019-06-04 12:49] LABS: PLT ESTIMATE INCREASED (ADEQUATE)
[2019-06-04 12:50] LABS: ANISOCYTOSIS MOD; POIKILOCYTOSIS MOD
[2019-06-04 12:51] LABS: SCHISTOCYTES OCC; SICKLE CELLS FEW
[2019-06-04 12:52] LABS: TARGET CELLS PRESENT
--- NOTE | 2019-06-04 13:03 | PHYS DOC ---
Past Medical History Past Medical History: Sickle Cell Disease Additional Past Medical Histor: AVASCULAR NECROSIS OF R HIP (ROMY MEDEL APRN) Past Surgical History: No Surgical History Additional Past Surgical Histo: L HIP BONE GRAFT (ROMY MEDEL APRN) Alcohol Use: None Drug Use: Marijuana (ROMY MEDEL APRN) Attending Signature I have participated in the care of this patient and I have reviewed and agree with all pertinent clinical information above including history, exam, and recommendations. (ANGI DAVISON MD) Adult General Chief Complaint Chief Complaint: PAIN CONTROL HPI HPI Patient is a 23 year old male with history of sickle cell who presents to the ED today complaining of 10 out of 10 mid back pain, low back pain, bilateral lower extremity pain due to his sickle cell that has been going on for 2 weeks. Patient states he was admitted at [facility] last week and was disch arged on Wednesday, he states his pain has continued. He states he has an appointment with his sickle cell doctor at [facility] on Wednesday this week. Patient denies anything alleviating his pain, he states he tried taking oxycodone with no relief. He states cold weather exacerbates his pain, denies any chest pain or shortness of breath. Denies any fever, cough, congestion. (ROMY MEDEL APRN) Review of Systems Review of Systems Constitutional: Denies fever or chills [] Eyes: Denies change in visual acuity, redness, or eye pain [] HENT: Denies nasal congestion or sore throat [] Respiratory: Denies cough or shortness of breath [] Cardiovascular: No additional information not addressed in HPI [] GI: Denies abdominal pain, nausea, vomiting, bloody stools or diarrhea [] : Denies dysuria or hematuria [] Musculoskeletal: Reports mid back pain, low back pain and bilateral lower extremity pain Integument: Denies rash or skin lesions [] Neurologic: Denies headache, focal weakness or sensory changes [] All other systems were reviewed and found to be within normal limits, except as documented in this note. (ROMY MEDEL APRN) Current Medications Current Medications Current Medications Medications (Trade) Dose Ordered Sig/Glenis Start Time Stop Time Status Last Admin Dose Admin Fentanyl Citrate (Fentanyl 2ml Vial) 50 mcg PRN Q15MIN PRN 06/04/19 10:45 06/04/19 13:16 DC 06/04/19 12:22 50 MCG Ondansetron HCl (Zofran) 4 mg 1X ONCE 06/04/19 10:45 06/04/19 10:46 DC 06/04/19 10:48 4 MG Sodium Chloride 1,000 ml @ 1,000 mls/hr 1X ONCE 06/04/19 10:45 06/04/19 11:44 DC (ANGI DAVISON MD) Allergies Allergies Allergies Coded Allergies Type Severity Reaction Last Updated Verified No Known Drug Allergies 11/06/17 No (ANGI DAVISON MD) Physical Exam Physical Exam Constitutional: Well developed, well nourished, no acute distress, non-toxic appearance. [] HENT: Normocephalic, atraumatic, bilateral external ears normal, oropharynx moist, no oral exudates, nose normal. [] Eyes: PERRLA, EOMI, conjunctiva normal, no discharge. [] Neck: Normal range of motion, no tenderness, supple, no stridor. [] Cardiovascular:Heart rate regular rhythm, no murmur [] Lungs & Thorax: Bilateral breath sounds clear to auscultation [] Abdomen: Bowel sounds normal, soft, no tenderness, no masses, no pulsatile masses. [] Skin: Warm, dry, no erythema, no rash. [] Back: No tenderness, no CVA tenderness. [] Extremities: No tenderness, no cyanosis, no clubbing, ROM intact, no edema. [] Neurologic: Alert and oriented X 3, normal motor function, normal sensory function, no focal deficits noted. [] Psychologic: Affect normal, judgement normal, mood normal. [] (ROMY MEDEL APRN) Current Patient Data Vital Signs Vital Signs Date Time Temp Pulse Resp B/P (MAP) Pulse Ox O2 Delivery O2 Flow Rate FiO2 06/04/19 13:15 71 14 100 06/04/19 10:25 97.7 122/69 (86) Room Air 97.7 (ANGI DAVISON MD) Lab Values Laboratory Tests Test 06/04/19 10:38 White Blood Count 6.5 x10^3/uL (4.0-11.0) Red Blood Count 2.96 x10^6/uL (4.30-5.70) L Hemoglobin 9.1 g/dL (13.0-17.5) L Hematocrit 25.2 % (39.0-53.0) L Mean Corpuscular Volume 86 fL (79-100) Mean Corpuscular Hemoglobin 31 pg (25-35) Mean Corpuscular Hemoglobin Concent 36 g/dL (31-37) Red Cell Distribution Width 24.2 % (11.5-14.5) H Platelet Count 422 x10^3/uL (140-400) H Neutrophils (%) (Auto) 44 % (31-73) Lymphocytes (%) (Auto) 45 % (24-48) Monocytes (%) (Auto) 7 % (0-9) Eosinophils (%) (Auto) 3 % (0-3) Basophils (%) (Auto) 1 % (0-3) Neutrophils # (Auto) 2.9 x10^3/uL (1.8-7.7) Lymphocytes # (Auto) 2.9 x10^3/uL (1.0-4.8) Monocytes # (Auto) 0.4 x10^3/uL (0.0-1.1) Eosinophils # (Auto) 0.2 x10^3/uL (0.0-0.7) Basophils # (Auto) 0.1 x10^3/uL (0.0-0.2) Platelet Estimate Increased (ADEQUATE) Large Platelets Few Giant Platelets Few Poikilocytosis Mod Anisocytosis Mod Macrocytosis Present Sickle Cells Few Target Cells Present Schistocytes Occ Absolute Reticulocyte Count 0.185 x10^6/uL (0.020-0.120) Percent Reticulocyte Count 6.3 % (0.5-2.3) H Immature Reticulocyte Fraction 0.68 (0.20-0.60) H Sodium Level 140 mmol/L (136-145) Potassium Level 3.9 mmol/L (3.5-5.1) Chloride Level 101 mmol/L (98-107) Carbon Dioxide Level 28 mmol/L (21-32) Anion Gap 11 (6-14) Blood Urea Nitrogen 6 mg/dL (8-26) L Creatinine 0.6 mg/dL (0.7-1.3) L Estimated GFR (Cockcroft-Gault) 205.8 BUN/Creatinine Ratio 10 (6-20) Glucose Level 102 mg/dL (70-99) H Calcium Level 9.9 mg/dL (8.5-10.1) Total Bilirubin 1.6 mg/dL (0.2-1.0) H Aspartate Amino Transferase (AST) 36 U/L (15-37) Alanine Aminotransferase (ALT) 37 U/L (16-63) Alkaline Phosphatase 130 U/L (46-116) H Total Protein 9.0 g/dL (6.4-8.2) H Albumin 4.4 g/dL (3.4-5.0) Albumin/Globulin Ratio 1.0 (1.0-1.7) Laboratory Tests 06/04/19 10:38 Laboratory Tests 06/04/19 10:38 (ANGI DAVISON MD) EKG EKG [] (ROMY MEDEL APRN) Radiology/Procedures Radiology/Procedures [] (ROMY MEDEL APRN) Course & Med Decision Making Course & Med Decision Making Pertinent Labs and Imaging studies reviewed. (See chart for details) This is a 23-year-old male patient with history of sickle cell presenting to the ED today with sickle cell pain. Patient was given IV fluids and pain medicine. Labs did not have any acute findings. He was offered admission to the hospital considering he was discharged from [facility] 6 days ago with the same pain. He declined, he states he has an appointment with his own doctor at [facility] on Wednesday this week. He was discharged to home. (ROMY MEDEL APRN) Dragon Disclaimer Dragon Disclaimer This electronic medical record was generated, in whole or in part, using a voice recognition dictation system. (ROMY MEDEL APRN) Departure Departure Impression: Primary Impression: Sickle cell anemia with pain Disposition: 01 HOME, SELF-CARE Condition: STABLE Referrals: UNKNOWN PCP NAME (PCP) follow up with [facility] for your appointment on Wednesday this Patient Instructions: Sickle Cell Pain Crisis Additional Instructions: You were evaluated today for sickle cell pain. Please follow-up on Wednesday with your doctor at [facility] as scheduled. ROMY MEDEL APRN Jun 04, 2019 13:03 ANGI DAVISON MD Jun 04, 2019 17:20
[2019-06-04 13:15] VITALS: BP 116/56
== END 2019-06-04 13:16 | disposition home or self-care (01) ==
LOC: ER 10:21
DX: D57.00 Hb-SS disease with crisis, unspecified (principal)
CPT/HCPCS: 36415; 80053; 85025; 85045; 96374; 96375; 96376; 99284; J2405; J3010

== ENCOUNTER 2019-06-06 12:20 | Emergency (ER) | payer BC ==
[~2019-06-06] VITALS: Ht 175.3 cm; Wt 72.6 kg
[2019-06-06 13:05] VITALS: BP 118/56
[2019-06-06] MEDS ORDERED: KETOROLAC 60 MG/2 ML VIAL. IM ONE (13:15)
[2019-06-06] MEDS ORDERED: HYDR-3164 PO (13:29)
--- NOTE | 2019-06-06 13:29 | PHYS DOC ---
Past Medical History Past Medical History: Sickle Cell Disease Additional Past Medical Histor: AVASCULAR NECROSIS OF R HIP Past Surgical History: No Surgical History Additional Past Surgical Histo: L HIP BONE GRAFT Alcohol Use: None Drug Use: Marijuana Adult General Chief Complaint Chief Complaint: OTHER COMPLAINTS [facility] HPI Patient is a 23 year old male with history of sickle cell disease and frequent emergency room visits who presents with complaining of sickle cell crisis. GEN complaining of upper and lower back pain as a chronic pain that getting worse for the last 10 days. Patient states his pain improved after hospitalization 10 days ago but after increasing of the pain was seen in this emergency room 2 days ago and offered hospitalization but he decided to go home and follow up with his primary care physician in 2 days. Patient states he ran out of hydrocodone 10 mg and able to see his physician until next week and decided to come to ER. Patient denies new injury, focal neuro deficit, fever and chills, urinary and bowel incontinence, nausea and vomiting, abdominal pain, chest pain. Review of Systems Review of Systems Constitutional: Denies fever or chills [] Eyes: Denies change in visual acuity, redness, or eye pain [] HENT: Denies nasal congestion or sore throat [] Respiratory: Denies cough or shortness of breath [] Cardiovascular: No additional information not addressed in HPI [] GI: Denies abdominal pain, nausea, vomiting, bloody stools or diarrhea [] : Denies dysuria or hematuria [] Musculoskeletal: Reports back pain Integument: Denies rash or skin lesions [] Neurologic: Denies headache, focal weakness or sensory changes [] Endocrine: Denies polyuria or polydipsia [] All other systems were reviewed and found to be within normal limits, except as documented in this note. Current Medications Current Medications Current Medications Medications (Trade) Dose Ordered Sig/Glenis Start Time Stop Time Status Last Admin Dose Admin Ketorolac Tromethamine (Toradol Im) 60 mg 1X ONCE 06/06/19 13:15 06/06/19 13:16 DC Allergies Allergies Allergies Coded Allergies Type Severity Reaction Last Updated Verified No Known Drug Allergies 11/06/17 No Physical Exam Physical Exam Constitutional: Well developed, well nourished, no distress, non-toxic appearance. [] HENT: Normocephalic, atraumatic. Eyes: PERRLA, EOMI, conjunctiva normal, no discharge. [] Neck: Normal range of motion, no tenderness, supple, no stridor. [] Cardiovascular:Heart rate regular rhythm, no murmur [] Lungs & Thorax: Bilateral breath sounds clear to auscultation [] Abdomen: Bowel sounds normal, soft, no tenderness, no masses, no pulsatile masses. [] Skin: Warm, dry, no erythema, no rash. [] Back: No tenderness, no CVA tenderness. [] Extremities: No tenderness, no cyanosis, no clubbing, ROM intact, no edema. [] Neurologic: Alert and oriented X 3, no focal deficits noted. [] Psychologic: Affect normal, judgement normal, mood normal. [] Current Patient Data Vital Signs Vital Signs Date Time Temp Pulse Resp B/P (MAP) Pulse Ox O2 Delivery O2 Flow Rate FiO2 06/06/19 12:43 98.1 75 18 126/64 (84) 97 Room Air 98.1 EKG EKG [] Radiology/Procedures Radiology/Procedures [] Course & Med Decision Making Course & Med Decision Making Evaluation of patient in ER showed 23-year-old male patient with history of sickle cell disease and frequent emergency room visits and hospitalization presented to ER with complaining of increasing chronic back pain. Patient looked very comfortable and did not have abnormal physical exam. Patient treated with Toradol IM in ER and plan to discharge home with prescription of#8 [place] and advised to follow-up with his mentioned in his previous emergency room visit. Dragon Disclaimer Dragon Disclaimer This electronic medical record was generated, in whole or in part, using a voice recognition dictation system. Departure Departure Impression: Primary Impression: Chronic back pain Additional Impression: Sickle cell anemia with pain Disposition: 01 HOME, SELF-CARE (at 1327) Condition: IMPROVED Referrals: UNKNOWN PCP NAME (PCP) Patient Instructions: Back Pain, Adult, Sickle Cell Anemia Additional Instructions: Drink plenty of liquids Follow-up with your primary care physician as a scheduled tomorrow Return to ER if not getting better Scripts Hydrocodone/Apap 5-325 (NORCO 5-325 TABLET) 1 Each Tablet 1 TAB PO PRN Q6HRS PRN for PAIN, #8 TAB 0 Refills Prov: JADA MCDONALD MD 06/06/19 Problem Qualifiers Primary Impression: Chronic back pain Back pain location: low back pain Back pain laterality: unspecified Sciatica presence: without sciatica Qualified Codes: M54.5 - Low back pain; G89.29 - Other chronic pain JADA MCDONALD MD Jun 06, 2019 13:29
== END 2019-06-06 14:20 | disposition home or self-care (01) ==
LOC: ER 12:20
DX: D57.00 Hb-SS disease with crisis, unspecified (principal); G89.29 Other chronic pain; M54.5 Low back pain; M54.6 Pain in thoracic spine
CPT/HCPCS: 96372; 99283; J1885

== ENCOUNTER 2019-06-13 04:49 | Emergency (ER) | payer BC ==
[~2019-06-13] VITALS: Ht 175.3 cm; Wt 72.6 kg
[2019-06-13] MEDS ORDERED: IV NORMAL SALINE 1000ML BAG 1,000 ML IV ONE (05:15)
[2019-06-13] MEDS ORDERED: ONDANSETRON PF 4 MG/2 ML VIAL. ONE (05:15)
[2019-06-13] MEDS ORDERED: MORPHINE SULFATE 4 MG/ML VIAL. IV ONE ×2 (05:15)
[2019-06-13] MEDS ORDERED: ONDANSETRON PF 4 MG/2 ML VIAL. IVP ONE (05:15)
[2019-06-13] MEDS ORDERED: IV NORMAL SALINE 1000ML BAG 1,000 ML IV SCH (05:15)
[2019-06-13 05:27] LABS: BASO # 0.1 x10^3/uL (0.0-0.2); BASO % 1 % (0-3); EOS # 0.1 x10^3/uL (0.0-0.7); EOS % 1 % (0-3); HEMATOCRIT 27.5 % (39.0-53.0); HEMOGLOBIN 9.8 g/dL (13.0-17.5); LYMPH % 50 % (24-48); MEAN CORPUSCULAR HEMOGLOBIN 31 pg (25-35); MEAN CORPUSCULAR HGB CONC 36 g/dL (31-37); MEAN CORPUSCULAR VOLUME 88 fL (79-100); MONO # 0.9 x10^3/uL (0.0-1.1); MONO % 9 % (0-9); NEUT # 3.9 x10^3/uL (1.8-7.7); NEUT % 39 % (31-73); PLATELET COUNT 591 x10^3/uL (140-400); RED BLOOD COUNT 3.14 x10^6/uL (4.30-5.70); RED CELL DISTRIBUTION WIDTH 23.1 % (11.5-14.5); WHITE BLOOD COUNT 10.1 x10^3/uL (4.0-11.0)
--- NOTE | 2019-06-13 05:33 | RAD ---
PROCEDURE: PORTABLE CHEST 1V CLINICAL INDICATION: Pain COMPARISON: None FINDINGS: No pneumothorax identified. Cardiac and mediastinal contours unremarkable. No pulmonary consolidation or acute airspace disease. No acute osseous abnormalities identified. IMPRESSION: No pulmonary consolidation or acute airspace disease. Electronically signed by: Mitchell Lowe DO (06/13/2019 5:30 AM) [facility]
[2019-06-13 05:34] LABS: CALCIUM 8.9 mg/dL (8.5-10.1); CREATININE 0.7 mg/dL (0.7-1.3); GFR 172.3
[2019-06-13 05:36] LABS: PROTHROMBIN TIME PATIENT 14.1 SEC (11.7-14.0)
--- NOTE | 2019-06-13 05:49 | PHYS DOC ---
Past Medical History Past Medical History: Sickle Cell Disease Additional Past Medical Histor: AVASCULAR NECROSIS OF R HIP (SARAH GLYNN DO) Past Surgical History: No Surgical History Additional Past Surgical Histo: L HIP BONE GRAFT (SARAH GLYNN DO) Alcohol Use: None Drug Use: Marijuana (SARAH GLYNN DO) Adult General Chief Complaint Chief Complaint: CHEST PAIN-CARDIAC NATURE HPI HPI Patient is a 23 year old male who presents to ED with CC of chest pain. He says that symptoms have been present for 2 days. He says that he has hx of sickle cell disease. He was admitted for pain control 2 weeks ago. (SARAH GLYNN DO) Review of Systems Review of Systems Constitutional: Denies fever or chills [] Eyes: Denies change in visual acuity, redness, or eye pain [] HENT: Denies nasal congestion or sore throat [] Respiratory: Denies cough or shortness of breath [] Cardiovascular: Patient complains of chest pain GI: Denies abdominal pain, nausea, vomiting, bloody stools or diarrhea [] : Denies dysuria or hematuria [] Musculoskeletal: Patient complains of mild low back pain Integument: Denies rash or skin lesions [] Neurologic: Denies headache, focal weakness or sensory changes [] All other systems were reviewed and found to be within normal limits, except as documented in this note. (SARAH GLYNN DO) Current Medications Current Medications Current Medications Medications (Trade) Dose Ordered Sig/Glenis Start Time Stop Time Status Last Admin Dose Admin Hydromorphone HCl (Dilaudid) 1 mg 1X ONCE 06/13/19 06:00 06/13/19 06:01 DC 06/13/19 05:59 1 MG Morphine Sulfate (Morphine Sulfate) 4 mg 1X ONCE 06/13/19 05:15 06/13/19 05:16 DC Ondansetron HCl (Zofran) 4 mg STK-MED ONCE 06/13/19 05:15 06/13/19 05:15 DC Sodium Chloride 1,000 ml @ 1,000 mls/hr 1X ONCE 06/13/19 05:15 06/13/19 06:14 DC (ANGI DAVISON MD) Allergies Allergies Allergies Coded Allergies Type Severity Reaction Last Updated Verified No Known Drug Allergies 11/06/17 No (ANGI DAVISON MD) Physical Exam Physical Exam Constitutional: Well developed, well nourished, no acute distress, non-toxic appearance. [] HENT: Normocephalic, atraumatic Eyes: PERRLA, EOMI Neck: Normal range of motion, no tenderness, supple, no stridor. [] Cardiovascular:Heart rate regular rhythm. Patient complains of chest pain Lungs & Thorax: Bilateral breath sounds clear to auscultation [] Abdomen: Bowel sounds normal, soft, no tenderness, no masses, no pulsatile masses. [] Skin: Warm, dry, no erythema, no rash. [] Back: No tenderness, no CVA tenderness. [] Extremities: No tenderness, no cyanosis, no clubbing, ROM intact, no edema. [] Neurologic: Alert and oriented X 3, normal motor function, normal sensory f unction, no focal deficits noted. [] (SARAH GLYNN DO) Current Patient Data Vital Signs Vital Signs Date Time Temp Pulse Resp B/P (MAP) Pulse Ox O2 Delivery O2 Flow Rate FiO2 06/13/19 05:59 78 18 131/78 (95) 99 Room Air 06/13/19 04:54 97.5 97.5 (ANGI DAVISON MD) Lab Values Laboratory Tests Test 06/13/19 04:55 White Blood Count 10.1 x10^3/uL (4.0-11.0) Red Blood Count 3.10 x10^6/uL (4.30-5.70) L Hemoglobin 9.8 g/dL (13.0-17.5) L Hematocrit 27.5 % (39.0-53.0) L Mean Corpuscular Volume 88 fL (79-100) Mean Corpuscular Hemoglobin 31 pg (25-35) Mean Corpuscular Hemoglobin Concent 36 g/dL (31-37) Red Cell Distribution Width 23.1 % (11.5-14.5) H Platelet Count 591 x10^3/uL (140-400) H Neutrophils (%) (Auto) 39 % (31-73) Lymphocytes (%) (Auto) 50 % (24-48) H Monocytes (%) (Auto) 9 % (0-9) Eosinophils (%) (Auto) 1 % (0-3) Basophils (%) (Auto) 1 % (0-3) Neutrophils # (Auto) 3.9 x10^3/uL (1.8-7.7) Lymphocytes # (Auto) 5.0 x10^3/uL (1.0-4.8) H Monocytes # (Auto) 0.9 x10^3/uL (0.0-1.1) Eosinophils # (Auto) 0.1 x10^3/uL (0.0-0.7) Basophils # (Auto) 0.1 x10^3/uL (0.0-0.2) Platelet Estimate Pending Absolute Reticulocyte Count 0.148 x10^6/uL (0.020-0.120) Percent Reticulocyte Count 4.8 % (0.5-2.3) H Immature Reticulocyte Fraction 0.76 (0.20-0.60) H Prothrombin Time 14.1 SEC (11.7-14.0) H Prothrombin Time INR 1.1 (0.8-1.1) Sodium Level 141 mmol/L (136-145) Potassium Level 4.0 mmol/L (3.5-5.1) Chloride Level 103 mmol/L (98-107) Carbon Dioxide Level 28 mmol/L (21-32) Anion Gap 10 (6-14) Blood Urea Nitrogen 8 mg/dL (8-26) Creatinine 0.7 mg/dL (0.7-1.3) Estimated GFR (Cockcroft-Gault) 172.3 BUN/Creatinine Ratio 11 (6-20) Glucose Level 102 mg/dL (70-99) H Lactic Acid Level 1.5 mmol/L (0.4-2.0) Calcium Level 8.9 mg/dL (8.5-10.1) Total Bilirubin 1.7 mg/dL (0.2-1.0) H Aspartate Amino Transferase (AST) 37 U/L (15-37) Alanine Aminotransferase (ALT) 18 U/L (16-63) Alkaline Phosphatase 117 U/L (46-116) H Lactate Dehydrogenase 633 U/L (85-227) H Creatine Kinase 46 U/L (39-308) Troponin I Quantitative < 0.017 ng/mL (0.000-0.055) Total Protein 7.9 g/dL (6.4-8.2) Albumin 4.1 g/dL (3.4-5.0) Albumin/Globulin Ratio 1.1 (1.0-1.7) Laboratory Tests 06/13/19 04:55 Laboratory Tests 06/13/19 04:55 (ANGI DAVISON MD) EKG EKG EKG interpretation #1 HR: 58 Sinus rhythm with lots of artifact Regular intervals Normal axis Nonspecific ST changes EKG interpretation #2 HR: 62 Sinus rhythm Regular intervals Normal axis Nonspecific ST changes (SARAH GLYNN DO) Radiology/Procedures Radiology/Procedures Ordered chest x-ray (SARAH GLYNN DO) Impressions: Chest x-ray shows no acute disease. (SARAH GLYNN DO) Course & Med Decision Making Course & Med Decision Making Pertinent Labs and Imaging studies reviewed. (See chart for details) Ordered labs, UA, chest x-ray, EKG, IV morphine, IV Zofran EKG shows nonspecific ST changes especially in V2 and V3 Chest x-ray shows no acute disease. After IV pain medications patient is more comfortable. (SARAH GLYNN DO) Course & Med Decision Making Discussed with patient potential for admission however he decline. Will plan for 1 more dose of dilaudid and discharge home. Patient states he was seen at sickle cell clinic yesterday and received his monthly rx for pain medications (ANGI DAVISON MD) Dragon Disclaimer Dragon Disclaimer This electronic medical record was generated, in whole or in part, using a voice recognition dictation system. (SARAH GLYNN DO) Departure Departure Impression: Primary Impression: Sickle cell anemia with pain Disposition: HOME, SELF-CARE Condition: STABLE Referrals: UNKNOWN PCP NAME (PCP) Patient Instructions: Sickle Cell Pain Crisis Additional Instructions: Recommend follow up with PCP 3 - 5 days Return to the ER with worsening symptoms, intractable pain, fever, altered mental status Tylenol/Motrin as needed for pain SARAH GLYNN DO Jun 13, 2019 05:49 ANGI DAVISON MD Jun 13, 2019 07:01
[2019-06-13 05:51] LABS: ALBUMIN 4.1 g/dL (3.4-5.0); ALBUMIN/GLOBULIN RATIO 1.1 (1.0-1.7); TOTAL BILIRUBIN 1.7 mg/dL (0.2-1.0); TOTAL PROTEIN 7.9 g/dL (6.4-8.2)
[2019-06-13] MEDS ORDERED: HYDROmorphone 2 MG/ML VIAL IV ONE (06:00)
--- NOTE | 2019-06-13 06:10 | EKG ---
[facility] [address] [place] [address] Test Date: 2019-06-13 Test Time: 05:37:27 Pat Name: RASHAUN CHURCH Department: Room: Gender: M [employer]: : 1995 Requested By: SARAH GLYNN Order Number: [id number] Reading MD: Norman Chairez MD Measurements Intervals [place] Rate: 62 P: [place]: QRS: 64 QRSD: 92 T: 6 QT: 416 QTc: 424 Interpretive Statements SR NON-SPECIFIC ST/T CHANGES Electronically Signed On 06-21-2019 8:09:26 CDT by Norman Chairez MD
[2019-06-13] MEDS ORDERED: HYDROmorphone 2 MG/ML VIAL IM ONE (07:00)
[2019-06-13 07:30] VITALS: BP 122/72
[2019-06-13 08:00] LABS: PLT ESTIMATE INCREASED (ADEQUATE)
[2019-06-13 08:01] LABS: ANISOCYTOSIS MOD; POIKILOCYTOSIS MOD; POLYCHROMASIA PRESENT; SICKLE CELLS MOD
[2019-06-13 08:02] LABS: TARGET CELLS FEW
== END 2019-06-13 07:54 | disposition home or self-care (01) ==
LOC: ER 04:49
DX: D57.00 Hb-SS disease with crisis, unspecified (principal); M54.5 Low back pain
CPT/HCPCS: 36415; 71045; 80053; 82550; 83605; 83615; 84484; 85025; 85045; 85610; 93005; 96372; 96374; 96375; 99285; J1170; J2270; J2405; J7030

== ENCOUNTER 2019-06-20 21:47 | Emergency (ER) | payer BC ==
[~2019-06-20] VITALS: Ht 175.3 cm; Wt 72.6 kg
[2019-06-20] MEDS ORDERED: IV NORMAL SALINE 1000ML BAG 1,000 ML IV ONE (22:30)
[2019-06-20] MEDS ORDERED: MORPHINE SULFATE 4 MG/ML VIAL. IV ONE (22:30)
[2019-06-20] MEDS ORDERED: ONDANSETRON PF 4 MG/2 ML VIAL. ONE (22:48)
[2019-06-20 22:55] LABS: BASO # 0.1 x10^3/uL (0.0-0.2); BASO % 1 % (0-3); EOS # 0.2 x10^3/uL (0.0-0.7); EOS % 2 % (0-3); HEMATOCRIT 25.9 % (39.0-53.0); HEMOGLOBIN 9.2 g/dL (13.0-17.5); LYMPH # 2.9 x10^3/uL (1.0-4.8); LYMPH % 37 % (24-48); MEAN CORPUSCULAR HEMOGLOBIN 31 pg (25-35); MEAN CORPUSCULAR HGB CONC 36 g/dL (31-37); MEAN CORPUSCULAR VOLUME 88 fL (79-100); MONO # 1.1 x10^3/uL (0.0-1.1); MONO % 14 % (0-9); NEUT # 3.6 x10^3/uL (1.8-7.7); NEUT % 46 % (31-73); PLATELET COUNT 344 x10^3/uL (140-400); RED BLOOD COUNT 2.96 x10^6/uL (4.30-5.70); RED CELL DISTRIBUTION WIDTH 22.6 % (11.5-14.5); WHITE BLOOD COUNT 7.8 x10^3/uL (4.0-11.0)
[2019-06-20 23:00] LABS: CALCIUM 8.6 mg/dL (8.5-10.1); CREATININE 0.8 mg/dL (0.7-1.3); GFR 147.7; POTASSIUM 3.6 mmol/L (3.5-5.1)
[2019-06-20 23:06] LABS: ALBUMIN 3.8 g/dL (3.4-5.0); ALBUMIN/GLOBULIN RATIO 1.1 (1.0-1.7); TOTAL BILIRUBIN 1.6 mg/dL (0.2-1.0); TOTAL PROTEIN 7.2 g/dL (6.4-8.2)
[2019-06-20 23:23] LABS: PLT ESTIMATE ADEQUATE (ADEQUATE)
[2019-06-20 23:24] LABS: SICKLE CELLS MOD
[2019-06-20 23:25] LABS: OVALOCYTES OCC; SCHISTOCYTES OCC; TARGET CELLS FEW
[2019-06-20 23:26] LABS: ANISOCYTOSIS MOD; POIKILOCYTOSIS MOD
[2019-06-20 23:29] LABS: POLYCHROMASIA OCCASIONAL
[2019-06-20] MEDS ORDERED: HYDR-3164 PO (23:34)
--- NOTE | 2019-06-20 23:34 | PHYS DOC ---
Past Medical History Past Medical History: Sickle Cell Disease Additional Past Medical Histor: AVASCULAR NECROSIS OF R HIP Past Surgical History: No Surgical History Additional Past Surgical Histo: L HIP BONE GRAFT Alcohol Use: None Drug Use: Marijuana Adult General Chief Complaint Chief Complaint: OTHER COMPLAINTS HPI HPI Patient is a 23 year old male presents to the ED with a chief complaint of sickle cell pain. Patient states that he has pain in both his legs and upper and lower back. Patient states that his admitted on June 13 for similar complaints. Patient states that he is out of his meds until he sees his physician on July 06. Review of Systems Review of Systems Constitutional: Denies fever or chills [] HENT: Denies nasal congestion or sore throat [] Respiratory: Denies cough or shortness of breath [] Cardiovascular: No additional information not addressed in HPI [] GI: Denies abdominal pain, nausea, vomiting, bloody stools or diarrhea [] : Denies dysuria or hematuria [] Musculoskeletal: Complains of bilateral lower extremity tenderness and upper and lower back.[] Neurologic: Denies headache, focal weakness or sensory changes [] All other systems were reviewed and found to be within normal limits, except as documented in this note. Current Medications Current Medications Current Medications Medications (Trade) Dose Ordered Sig/Glenis Start Time Stop Time Status Last Admin Dose Admin Morphine Sulfate (Morphine Sulfate) 4 mg 1X ONCE 06/20/19 22:30 06/20/19 22:31 DC 06/20/19 22:30 4 MG Ondansetron HCl (Zofran) 4 mg STK-MED ONCE 06/20/19 22:48 06/20/19 22:48 DC Sodium Chloride 1,000 ml @ 1,000 mls/hr 1X ONCE 06/20/19 22:30 06/20/19 23:29 DC 06/20/19 22:30 1,000 MLS/HR Allergies Allergies Allergies Coded Allergies Type Severity Reaction Last Updated Verified No Known Drug Allergies 11/06/17 No Physical Exam Physical Exam Constitutional: Well developed, well nourished, no acute distress, non-toxic appearance. [] HENT: Normocephalic, atraumatic [] Neck: Normal range of motion, no tenderness, supple [] Cardiovascular:Heart rate regular rhythm [] Lungs & Thorax: Bilateral breath sounds clear to auscultation [] Abdomen: Bowel sounds normal, soft, no tenderness [] Back: No tenderness, no CVA tenderness. [] Extremities: Generalized tenderness. No tenderness to palpation.[] Neurologic: Alert and oriented X 3 [] Current Patient Data Vital Signs Vital Signs Date Time Temp Pulse Resp B/P (MAP) Pulse Ox O2 Delivery O2 Flow Rate FiO2 06/20/19 23:00 74 23 106/57 (73) 98 Room Air 06/20/19 22:00 98.2 98.2 Lab Values Laboratory Tests Test 06/20/19 22:15 White Blood Count 7.8 x10^3/uL (4.0-11.0) Red Blood Count 2.98 x10^6/uL (4.30-5.70) L Hemoglobin 9.2 g/dL (13.0-17.5) L Hematocrit 25.9 % (39.0-53.0) L Mean Corpuscular Volume 88 fL (79-100) Mean Corpuscular Hemoglobin 31 pg (25-35) Mean Corpuscular Hemoglobin Concent 36 g/dL (31-37) Red Cell Distribution Width 22.6 % (11.5-14.5) H Platelet Count 344 x10^3/uL (140-400) Neutrophils (%) (Auto) 46 % (31-73) Lymphocytes (%) (Auto) 37 % (24-48) Monocytes (%) (Auto) 14 % (0-9) H Eosinophils (%) (Auto) 2 % (0-3) Basophils (%) (Auto) 1 % (0-3) Neutrophils # (Auto) 3.6 x10^3/uL (1.8-7.7) Lymphocytes # (Auto) 2.9 x10^3/uL (1.0-4.8) Monocytes # (Auto) 1.1 x10^3/uL (0.0-1.1) Eosinophils # (Auto) 0.2 x10^3/uL (0.0-0.7) Basophils # (Auto) 0.1 x10^3/uL (0.0-0.2) Platelet Estimate Adequate (ADEQUATE) Large Platelets Few Giant Platelets Occ Polychromasia Occasional Poikilocytosis Mod Anisocytosis Mod Sickle Cells Mod Target Cells Few Ovalocytes Occ Schistocytes Occ Absolute Reticulocyte Count 0.117 x10^6/uL (0.020-0.120) Percent Reticulocyte Count 3.9 % (0.5-2.3) H Immature Reticulocyte Fraction 0.62 (0.20-0.60) H Sodium Level 143 mmol/L (136-145) Potassium Level 3.6 mmol/L (3.5-5.1) Chloride Level 107 mmol/L (98-107) Carbon Dioxide Level 26 mmol/L (21-32) Anion Gap 10 (6-14) Blood Urea Nitrogen 7 mg/dL (8-26) L Creatinine 0.8 mg/dL (0.7-1.3) Estimated GFR (Cockcroft-Gault) 147.7 BUN/Creatinine Ratio 9 (6-20) Glucose Level 103 mg/dL (70-99) H Lactic Acid Level 1.3 mmol/L (0.4-2.0) Calcium Level 8.6 mg/dL (8.5-10.1) Total Bilirubin 1.6 mg/dL (0.2-1.0) H Aspartate Amino Transferase (AST) 32 U/L (15-37) Alanine Aminotransferase (ALT) 19 U/L (16-63) Alkaline Phosphatase 107 U/L (46-116) Lactate Dehydrogenase 553 U/L (85-227) H Total Protein 7.2 g/dL (6.4-8.2) Albumin 3.8 g/dL (3.4-5.0) Albumin/Globulin Ratio 1.1 (1.0-1.7) Laboratory Tests 06/20/19 22:15 Laboratory Tests 06/20/19 22:15 EKG EKG [] Radiology/Procedures Radiology/Procedures [] Course & Med Decision Making Course & Med Decision Making Pertinent Labs reviewed. (See chart for details) Ordered labs, IV fluids, IV morphine, IV Zofran. Hemoglobin is stable at 9.2. Reticulocyte count is better than it was on June 13. Patient states that pain is controlled with IV morphine. Discussed results and plan of care with patient. We will prescribe Wilton for home pain control. Discussed results and plan of care with patient. Patient is instructed to follow up with PCP in one to 2 days. Appropriate discharge instructions given to patient to return to the ED or to seek immediate medical evaluation. Patient is instructed to return to the ED if symptoms worsen or if any concerns. Dragon Disclaimer Dragon Disclaimer This electronic medical record was generated, in whole or in part, using a voice recognition dictation system. Departure Departure Impression: Primary Impression: Sickle cell pain crisis Disposition: 01 HOME, SELF-CARE Condition: IMPROVED Referrals: UNKNOWN PCP NAME (PCP) Patient Instructions: Sickle Cell Pain Crisis Additional Instructions: Discussed results and plan of care with patient. Patient is instructed to follow up with PCP in one to 2 days. Appropriate discharge instructions given to patient to return to the ED or to seek immediate medical evaluation. Patient is instructed to return to the ED if symptoms worsen or if any concerns. Scripts Hydrocodone/Apap 5-325 (NORCO 5-325 TABLET) 1 Each Tablet 1 EACH PO PRN Q6HRS PRN for PAIN, #15 as needed for pain Prov: SARAH GLYNN DO 06/20/19 SARAH GLYNN DO Jun 20, 2019 23:34
[2019-06-20 23:45] VITALS: BP 121/58
== END 2019-06-20 23:58 | disposition home or self-care (01) ==
LOC: ER 21:47
DX: D57.00 Hb-SS disease with crisis, unspecified (principal); M54.5 Low back pain; M54.6 Pain in thoracic spine; M79.604 Pain in right leg; M79.605 Pain in left leg
CPT/HCPCS: 36415; 80053; 83605; 83615; 85025; 85045; 96374; 99284; J2270; J7030

== ENCOUNTER 2019-06-26 01:43 | Emergency (ER) | payer BC ==
[~2019-06-26] VITALS: Ht 175.3 cm; Wt 72.6 kg
[2019-06-26] MEDS ORDERED: HYDROmorphone 2 MG/ML VIAL IV ONE (02:15)
[2019-06-26] MEDS ORDERED: IV NORMAL SALINE 1000ML BAG 1,000 ML IV ONE (02:15)
--- NOTE | 2019-06-26 02:17 | PHYS DOC ---
Past Medical History Past Medical History: Sickle Cell Disease Additional Past Medical Histor: AVASCULAR NECROSIS OF R HIP Past Surgical History: No Surgical History Additional Past Surgical Histo: L HIP BONE GRAFT Alcohol Use: None Drug Use: Marijuana Adult General Chief Complaint Chief Complaint: PAIN CONTROL HPI HPI 23-year-old male presents to the emergency Department complaints of sickle cell pain primarily in his back. Patient states he was seen last month for medication refill [facility] approximately 09 June however states he is out of medications. Patient still remains on short-acting oxycodone without a long- acting medication which continues to not control his pain. Patient states he stuck multiple times to his providers with regards to long-acting pain medications however hasn't yet to get a prescription. He presents tonight with continued pain. He denies any shortness of breath, chest chest pain, nausea, vomiting. Pain is primarily in the low back. Nothing makes his pain worse, nothing makes his pain better. Review of Systems Review of Systems Constitutional: Denies fever or chills [] HENT: Denies nasal congestion or sore throat [] Respiratory: Denies cough or shortness of breath [] Cardiovascular: No additional information not addressed in HPI [] GI: Denies abdominal pain, nausea, vomiting, bloody stools or diarrhea [] Musculoskeletal: + low back pain Neurologic: Denies headache, focal weakness or sensory changes [] All other systems were reviewed and found to be within normal limits, except as documented in this note. Current Medications Current Medications Current Medications Medications (Trade) Dose Ordered Sig/Glenis Start Time Stop Time Status Last Admin Dose Admin Fentanyl Citrate (Fentanyl 2ml Vial) 50 mcg 1X ONCE 06/26/19 03:15 06/26/19 03:16 DC 06/26/19 03:23 50 MCG Hydromorphone HCl (Dilaudid) 1 mg 1X ONCE 06/26/19 02:15 06/26/19 02:16 DC 06/26/19 02:23 1 MG Ondansetron HCl (Zofran) 4 mg 1X ONCE 06/26/19 03:15 06/26/19 03:16 DC 06/26/19 03:09 4 MG Sodium Chloride 1,000 ml @ 1,000 mls/hr 1X ONCE 06/26/19 02:15 06/26/19 03:14 DC 06/26/19 02:20 1,000 MLS/HR Allergies Allergies Allergies Coded Allergies Type Severity Reaction Last Updated Verified No Known Drug Allergies 11/06/17 No Physical Exam Physical Exam Constitutional: Well developed, well nourished, no acute distress, non-toxic appearance. [] HENT: Normocephalic, atraumatic, bilateral external ears normal, oropharynx moist, no oral exudates, nose normal. [] Eyes: PERRLA, EOMI, conjunctiva normal, no discharge. [] Neck: Normal range of motion, no tenderness, supple, no stridor. [] Cardiovascular:Heart rate regular rhythm, no murmur [] Lungs & Thorax: Bilateral breath sounds clear to auscultation [] Abdomen: Bowel sounds normal, soft, no tenderness, no masses, no pulsatile masses. [] Skin: Warm, dry, no erythema, no rash. [] Back: No tenderness, no CVA tenderness. [] Extremities: No tenderness, no cyanosis, no clubbing, ROM intact, no edema. [] Neurologic: Alert and oriented X 3, normal motor function, normal sensory function, no focal deficits noted. [] Psychologic: Affect normal, judgement normal, mood normal. [] Current Patient Data Vital Signs Vital Signs Date Time Temp Pulse Resp B/P (MAP) Pulse Ox O2 Delivery O2 Flow Rate FiO2 06/26/19 03:23 20 96 Room Air 06/26/19 03:15 74 06/26/19 01:53 98.1 122/75 (91) 98.1 Lab Values Laboratory Tests Test 06/26/19 02:15 White Blood Count 10.2 x10^3/uL (4.0-11.0) Red Blood Count 3.01 x10^6/uL (4.30-5.70) L Hemoglobin 9.5 g/dL (13.0-17.5) L Hematocrit 26.7 % (39.0-53.0) L Mean Corpuscular Volume 88 fL (79-100) Mean Corpuscular Hemoglobin 31 pg (25-35) Mean Corpuscular Hemoglobin Concent 36 g/dL (31-37) Red Cell Distribution Width 22.3 % (11.5-14.5) H Platelet Count 192 x10^3/uL (140-400) Neutrophils (%) (Auto) 58 % (31-73) Lymphocytes (%) (Auto) 30 % (24-48) Monocytes (%) (Auto) 10 % (0-9) H Eosinophils (%) (Auto) 2 % (0-3) Basophils (%) (Auto) 1 % (0-3) Neutrophils # (Auto) 5.9 x10^3/uL (1.8-7.7) Lymphocytes # (Auto) 3.0 x10^3/uL (1.0-4.8) Monocytes # (Auto) 1.0 x10^3/uL (0.0-1.1) Eosinophils # (Auto) 0.2 x10^3/uL (0.0-0.7) Basophils # (Auto) 0.1 x10^3/uL (0.0-0.2) Platelet Estimate Adequate (ADEQUATE) Polychromasia Slight Hypochromasia Slight Poikilocytosis Mod Anisocytosis Mod Sickle Cells Few Target Cells Few Tear Drop Cells Few Ovalocytes Few Absolute Reticulocyte Count 0.112 x10^6/uL (0.020-0.120) Percent Reticulocyte Count 3.7 % (0.5-2.3) H Immature Reticulocyte Fraction 0.67 (0.20-0.60) H Sodium Level 142 mmol/L (136-145) Potassium Level 4.1 mmol/L (3.5-5.1) Chloride Level 108 mmol/L (98-107) H Carbon Dioxide Level 27 mmol/L (21-32) Anion Gap 7 (6-14) Blood Urea Nitrogen 12 mg/dL (8-26) Creatinine 0.7 mg/dL (0.7-1.3) Estimated GFR (Cockcroft-Gault) 172.3 BUN/Creatinine Ratio 17 (6-20) Glucose Level 101 mg/dL (70-99) H Calcium Level 8.9 mg/dL (8.5-10.1) Total Bilirubin 1.9 mg/dL (0.2-1.0) H Aspartate Amino Transferase (AST) 45 U/L (15-37) H Alanine Aminotransferase (ALT) 27 U/L (16-63) Alkaline Phosphatase 114 U/L (46-116) Lactate Dehydrogenase 668 U/L (85-227) H Total Protein 7.9 g/dL (6.4-8.2) Albumin 4.2 g/dL (3.4-5.0) Albumin/Globulin Ratio 1.1 (1.0-1.7) Laboratory Tests 06/26/19 02:15 Laboratory Tests 06/26/19 02:15 EKG EKG [] Radiology/Procedures Radiology/Procedures [] Course & Med Decision Making Course & Med Decision Making Pertinent Labs and Imaging studies reviewed. (See chart for details) []23-year-old male presents to the emergency Department complaints of sickle cell pain primarily in his back. Patient states he was seen last month for medication refill [facility] approximately 09 June however states he is out of medications. Patient still remains on short-acting oxycodone without a long-acting medication which continues to not control his pain. Patient states he stuck multiple times to his providers with regards to long- acting pain medications however hasn't yet to get a prescription. He presents tonight with continued pain. He denies any shortness of breath, chest chest pain, nausea, vomiting. Pain is primarily in the low back. Nothing makes his pain worse, nothing makes his pain better. Labs obtained and reviewed IVF 1 liter NS Dilaudid 1mg IV Reassessment 0317 - pain improved to 7/10 Fentanyl 50mcg IVP x 1 Zofran 4mg IV x 1 Dragon Disclaimer Dragon Disclaimer This electronic medical record was generated, in whole or in part, using a voice recognition dictation system. Departure Departure Impression: Primary Impression: Sickle cell pain crisis Disposition: HOME, SELF-CARE Condition: IMPROVED Referrals: UNKNOWN PCP NAME (PCP) Patient Instructions: Sickle Cell Pain Crisis Additional Instructions: Recommend follow up with PCP 3 - 5 days Return to the ER with worsening symptoms, intractable pain, fever, altered mental status Tylenol/Motrin as needed for pain ANGI DAVISON MD Jun 26, 2019 02:17
[2019-06-26 02:37] LABS: BASO # 0.1 x10^3/uL (0.0-0.2); BASO % 1 % (0-3); EOS # 0.2 x10^3/uL (0.0-0.7); EOS % 2 % (0-3); HEMATOCRIT 26.7 % (39.0-53.0); HEMOGLOBIN 9.5 g/dL (13.0-17.5); LYMPH % 30 % (24-48); MEAN CORPUSCULAR HEMOGLOBIN 31 pg (25-35); MEAN CORPUSCULAR HGB CONC 36 g/dL (31-37); MEAN CORPUSCULAR VOLUME 88 fL (79-100); MONO % 10 % (0-9); NEUT # 5.9 x10^3/uL (1.8-7.7); NEUT % 58 % (31-73); PLATELET COUNT 192 x10^3/uL (140-400); RED BLOOD COUNT 3.04 x10^6/uL (4.30-5.70); RED CELL DISTRIBUTION WIDTH 22.3 % (11.5-14.5); WHITE BLOOD COUNT 10.2 x10^3/uL (4.0-11.0)
[2019-06-26 02:43] LABS: CALCIUM 8.9 mg/dL (8.5-10.1); CREATININE 0.7 mg/dL (0.7-1.3); GFR 172.3; POTASSIUM 4.1 mmol/L (3.5-5.1)
[2019-06-26 02:49] LABS: ALBUMIN 4.2 g/dL (3.4-5.0); ALBUMIN/GLOBULIN RATIO 1.1 (1.0-1.7); TOTAL BILIRUBIN 1.9 mg/dL (0.2-1.0); TOTAL PROTEIN 7.9 g/dL (6.4-8.2)
[2019-06-26] MEDS ORDERED: ONDANSETRON PF 4 MG/2 ML VIAL. ONE (03:01)
[2019-06-26 03:03] LABS: PLT ESTIMATE ADEQUATE (ADEQUATE)
[2019-06-26 03:04] LABS: ANISOCYTOSIS MOD; HYPOCHROMIA SLIGHT; POIKILOCYTOSIS MOD; POLYCHROMASIA SLIGHT; SICKLE CELLS FEW; TARGET CELLS FEW; TEAR DROP CELLS FEW
[2019-06-26 03:05] LABS: OVALOCYTES FEW
[2019-06-26] MEDS ORDERED: ONDANSETRON PF 4 MG/2 ML VIAL. IV ONE (03:15)
[2019-06-26] MEDS ORDERED: fentaNYL PF VIAL 100 MCG/2 ML VIAL IVP ONE (03:15)
[2019-06-26 04:15] VITALS: BP 112/68
== END 2019-06-26 04:20 | disposition home or self-care (01) ==
LOC: ER 01:43
DX: D57.00 Hb-SS disease with crisis, unspecified (principal)
CPT/HCPCS: 36415; 80053; 83615; 85025; 85045; 96374; 96375; 99284; J1170; J2405; J3010; J7030

== ENCOUNTER 2019-07-02 02:28 | Emergency (ER) | payer BC ==
[~2019-07-02] VITALS: Ht 175.3 cm; Wt 72.6 kg
--- NOTE | 2019-07-02 02:50 | PHYS DOC ---
Past Medical History Past Medical History: Sickle Cell Disease Additional Past Medical Histor: AVASCULAR NECROSIS OF R HIP Past Surgical History: No Surgical History Additional Past Surgical Histo: L HIP BONE GRAFT Alcohol Use: None Drug Use: Marijuana Adult General Chief Complaint Chief Complaint: BACK PAIN - NO INJURY [facility] HPI Patient is a 24-year-old male who presents with complaint of lower back pain and bilateral thigh pain that he relates is due to sickle cell pain crisis. Patient states that he had recently been admitted to [facility] and had been released on Wednesday. He states that since that time pain has not improved and states that over the last couple of days pain has been worsening. He does indicate that he has run out of his pain medication. He denies any chest pain or shortness of breath. He also denies any headache. He rates pain at a 9 out of 10.[] Review of Systems Review of Systems Constitutional: Denies fever or chills [] Respiratory: Denies cough or shortness of breath [] Cardiovascular: No additional information not addressed in HPI [] GI: Denies abdominal pain, nausea, vomiting or diarrhea [] Musculoskeletal: Complains of lower back and bilateral thigh pain [] Integument: Denies rash or skin lesions [] Neurologic: Denies headache, focal weakness or sensory changes [] All other systems were reviewed and found to be within normal limits, except as documented in this note. Current Medications Current Medications Current Medications Medications (Trade) Dose Ordered Sig/[facility] Start Time Stop Time Status Last Admin Dose Admin Hydromorphone HCl (Dilaudid) 1 mg PRN Q15MIN PRN 07/02/19 03:00 07/03/19 02:59 07/02/19 03:19 1 MG Ondansetron HCl (Zofran) 4 mg 1X ONCE 07/02/19 03:30 07/02/19 03:31 DC 07/02/19 03:19 4 MG Sodium Chloride 1,000 ml @ 1,000 mls/hr Q1H 07/02/19 03:00 07/02/19 03:59 DC 07/02/19 03:18 1,000 MLS/HR Allergies Allergies Allergies Coded Allergies Type Severity Reaction Last Updated Verified No Known Drug Allergies 11/06/17 No Physical Exam Physical Exam Constitutional: Well developed, well nourished, no acute distress, non-toxic appearance. [] HENT: Normocephalic, atraumatic, bilateral external ears normal, oropharynx moist, no oral exudates, nose normal. [] Eyes: PERRLA, EOMI, conjunctiva normal, no discharge. [] Neck: Normal range of motion, no tenderness, supple, no stridor. [] Cardiovascular: Regular rate and rhythm[] Lungs & Thorax: Bilateral breath sounds clear to auscultation [] Abdomen: Bowel sounds normal, soft, no tenderness. [] Skin: Warm, dry, no erythema, no rash. [] Extremities: No tenderness, no cyanosis, no clubbing, ROM intact. [] Neurologic: Alert and oriented X 3, no focal deficits noted. [] Current Patient Data Vital Signs Vital Signs Date Time Temp Pulse Resp B/P (MAP) Pulse Ox O2 Delivery O2 Flow Rate FiO2 07/02/19 03:19 23 98 Room Air 07/02/19 02:35 98.5 70 99/52 (68) 98.5 Lab Values Laboratory Tests Test 07/02/19 03:18 White Blood Count 7.5 x10^3/uL (4.0-11.0) Red Blood Count 2.72 x10^6/uL (4.30-5.70) L Hemoglobin 8.6 g/dL (13.0-17.5) L Hematocrit 23.7 % (39.0-53.0) L Mean Corpuscular Volume 86 fL (79-100) Mean Corpuscular Hemoglobin 31 pg (25-35) Mean Corpuscular Hemoglobin Concent 36 g/dL (31-37) Red Cell Distribution Width 22.7 % (11.5-14.5) H Platelet Count 254 x10^3/uL (140-400) Neutrophils (%) (Auto) 36 % (31-73) Lymphocytes (%) (Auto) 47 % (24-48) Monocytes (%) (Auto) 12 % (0-9) H Eosinophils (%) (Auto) 5 % (0-3) H Basophils (%) (Auto) 1 % (0-3) Neutrophils # (Auto) 2.7 x10^3/uL (1.8-7.7) Lymphocytes # (Auto) 3.5 x10^3/uL (1.0-4.8) Monocytes # (Auto) 0.9 x10^3/uL (0.0-1.1) Eosinophils # (Auto) 0.4 x10^3/uL (0.0-0.7) Basophils # (Auto) 0.1 x10^3/uL (0.0-0.2) Platelet Estimate Adequate (ADEQUATE) Polychromasia Slight Hypochromasia Mod Poikilocytosis Mod Anisocytosis Mod Spherocytes Few Sickle Cells Mod Target Cells Few Absolute Reticulocyte Count 0.093 x10^6/uL (0.020-0.120) Percent Reticulocyte Count 3.4 % (0.5-2.3) H Immature Reticulocyte Fraction 0.66 (0.20-0.60) H Sodium Level 141 mmol/L (136-145) Potassium Level 3.4 mmol/L (3.5-5.1) L Chloride Level 103 mmol/L (98-107) Carbon Dioxide Level 28 mmol/L (21-32) Anion Gap 10 (6-14) Blood Urea Nitrogen 9 mg/dL (8-26) Creatinine 0.7 mg/dL (0.7-1.3) Estimated GFR (Cockcroft-Gault) 170.6 BUN/Creatinine Ratio 13 (6-20) Glucose Level 115 mg/dL (70-99) H Calcium Level 8.7 mg/dL (8.5-10.1) Magnesium Level 1.8 mg/dL (1.8-2.4) Total Bilirubin 1.2 mg/dL (0.2-1.0) H Aspartate Amino Transferase (AST) 28 U/L (15-37) Alanine Aminotransferase (ALT) 28 U/L (16-63) Alkaline Phosphatase 106 U/L (46-116) Total Protein 7.4 g/dL (6.4-8.2) Albumin 3.6 g/dL (3.4-5.0) Albumin/Globulin Ratio 0.9 (1.0-1.7) L Laboratory Tests 07/02/19 03:18 Laboratory Tests 07/02/19 03:18 EKG EKG [] Radiology/Procedures Radiology/Procedures [] Course & Med Decision Making Course & Med Decision Making Pertinent Labs and Imaging studies reviewed. (See chart for details) A sugar moved to room upon arrival was evaluated by ER medical staff after which blood work was drawn an IV established. Patient given IV Dilaudid for pain along with Zofran. Patient's blood work is returned fairly unremarkable with normal absolute retic count. I did discuss option of admitting patient for management of his pain but patient states that he does not want to be admitted. Patient will be discharged with prescription for oxycodone and instructions to follow up with his primary provider this week. Dragon Disclaimer Dragon Disclaimer This electronic medical record was generated, in whole or in part, using a voice recognition dictation system. Departure Departure Impression: Primary Impression: Sickle cell anemia with pain Disposition: HOME, SELF-CARE Condition: STABLE Referrals: UNKNOWN PCP NAME (PCP) Patient Instructions: Sickle Cell Anemia Scripts Oxycodone/Apap 7.5-325 (PERCOCET 7.5-325 MG TABLET ) 1 Each Tablet 1 TAB PO QIDPRN PRN for PAIN MDD 4 Tablet(s), #12 TAB 0 Refills Prov: RADHA KNAPP Jr. DO 07/02/19 RADHA KNAPP Jr. DO Jul 02, 2019 02:50
[2019-07-02] MEDS ORDERED: IV NORMAL SALINE 1000ML BAG 1,000 ML IV SCH (03:00)
[2019-07-02] MEDS: HYDROmorphone 2 MG/ML VIAL IV/SQ PRN ×2 (03:19→04:25)
[2019-07-02 03:26] LABS: BASO # 0.1 x10^3/uL (0.0-0.2); BASO % 1 % (0-3); EOS # 0.4 x10^3/uL (0.0-0.7); EOS % 5 % (0-3); HEMATOCRIT 23.7 % (39.0-53.0); HEMOGLOBIN 8.6 g/dL (13.0-17.5); LYMPH # 3.5 x10^3/uL (1.0-4.8); LYMPH % 47 % (24-48); MEAN CORPUSCULAR HEMOGLOBIN 31 pg (25-35); MEAN CORPUSCULAR HGB CONC 36 g/dL (31-37); MEAN CORPUSCULAR VOLUME 86 fL (79-100); MONO # 0.9 x10^3/uL (0.0-1.1); MONO % 12 % (0-9); NEUT # 2.7 x10^3/uL (1.8-7.7); NEUT % 36 % (31-73); PLATELET COUNT 254 x10^3/uL (140-400); RED BLOOD COUNT 2.75 x10^6/uL (4.30-5.70); RED CELL DISTRIBUTION WIDTH 22.7 % (11.5-14.5); WHITE BLOOD COUNT 7.5 x10^3/uL (4.0-11.0)
[2019-07-02] MEDS ORDERED: ONDANSETRON PF 4 MG/2 ML VIAL. IV ONE (03:30)
[2019-07-02 03:32] LABS: CALCIUM 8.7 mg/dL (8.5-10.1); CREATININE 0.7 mg/dL (0.7-1.3); GFR 170.6; POTASSIUM 3.4 mmol/L (3.5-5.1)
[2019-07-02 03:38] LABS: ALBUMIN 3.6 g/dL (3.4-5.0); ALBUMIN/GLOBULIN RATIO 0.9 (1.0-1.7); MAGNESIUM 1.8 mg/dL (1.8-2.4); TOTAL BILIRUBIN 1.2 mg/dL (0.2-1.0); TOTAL PROTEIN 7.4 g/dL (6.4-8.2)
[2019-07-02 04:00] LABS: HYPOCHROMIA MOD; PLT ESTIMATE ADEQUATE (ADEQUATE); POLYCHROMASIA SLIGHT
[2019-07-02 04:01] LABS: ANISOCYTOSIS MOD; POIKILOCYTOSIS MOD; SICKLE CELLS MOD; SPHEROCYTES FEW; TARGET CELLS FEW
[2019-07-02] MEDS ORDERED: OXYC1TAB19 PO (04:06)
[2019-07-02 04:08] VITALS: BP 106/53
== END 2019-07-02 04:35 | disposition home or self-care (01) ==
LOC: ER 02:28
DX: D57.1 Sickle-cell disease without crisis (principal); M54.5 Low back pain; M79.651 Pain in right thigh; M79.652 Pain in left thigh; Z94.6 Bone transplant status; M87.059 Idiopathic aseptic necrosis of unspecified femur; F12.90 Cannabis use, unspecified, uncomplicated
CPT/HCPCS: 36415; 80053; 83735; 85025; 85045; 96374; 96375; 99284; J1170; J2405; J7030

== ENCOUNTER 2019-07-12 01:37 | Emergency (ER) | payer BC ==
[~2019-07-12] VITALS: Ht 175.3 cm; Wt 72.6 kg
[~2019-07-12 01:37] MED LIST changes: +OXYC1TAB19 PO
[2019-07-12 01:40] VITALS: BP 110/59
[2019-07-12] MEDS ORDERED: MORPHINE SULFATE 4 MG/ML VIAL. IV ONE (02:00)
[2019-07-12] MEDS ORDERED: IV NORMAL SALINE 1000ML BAG 1,000 ML IV ONE (02:00)
[2019-07-12] MEDS ORDERED: ONDANSETRON PF 4 MG/2 ML VIAL. IV ONE (02:00)
--- NOTE | 2019-07-12 02:08 | PHYS DOC ---
Past Medical History Past Medical History: Sickle Cell Disease Additional Past Medical Histor: AVASCULAR NECROSIS OF R HIP Past Surgical History: No Surgical History Additional Past Surgical Histo: L HIP BONE GRAFT Alcohol Use: None Drug Use: Marijuana Adult General Chief Complaint Chief Complaint: PAIN CONTROL HPI HPI 22-year-old male presents emergency Department complaints of sickle cell pain. Patient was recently seen here approximately one half weeks ago. He has an appointment on Wednesday for follow-up. They've recently changed his medications to 15 mg oxycodone. Patient states ran out of medication yesterday and his new prescription of oxycodone will not be ready until this morning. Patient states his pain is primarily located in his legs as well as his lower back. He denies any shortness of breath or chest pain at this time. Patient denies any fevers. Nothing makes his pain better Review of Systems Review of Systems Constitutional: Denies fever or chills [] Eyes: Denies change in visual acuity, redness, or eye pain [] HENT: Denies nasal congestion or sore throat [] Respiratory: Denies cough or shortness of breath [] Cardiovascular: No additional information not addressed in HPI [] GI: Denies abdominal pain, nausea, vomiting, bloody stools or diarrhea [] Musculoskeletal: back pain and leg pain Integument: Denies rash or skin lesions [] Neurologic: Denies headache, focal weakness or sensory changes [] All other systems were reviewed and found to be within normal limits, except as documented in this note. Current Medications Current Medications Current Medications Medications (Trade) Dose Ordered Sig/Glenis Start Time Stop Time Status Last Admin Dose Admin Morphine Sulfate (Morphine Sulfate) 4 mg 1X ONCE 07/12/19 02:00 07/12/19 02:05 DC Ondansetron HCl (Zofran Odt) 4 mg 1X ONCE 07/12/19 02:15 07/12/19 02:16 DC 07/12/19 02:10 4 MG Ondansetron HCl (Zofran) 4 mg 1X ONCE 07/12/19 02:00 07/12/19 02:05 DC Oxycodone HCl (Roxicodone) 15 mg 1X ONCE 07/12/19 02:15 07/12/19 02:16 DC 07/12/19 02:10 15 MG Sodium Chloride 1,000 ml @ 1,000 mls/hr 1X ONCE 07/12/19 02:00 07/12/19 02:05 DC Allergies Allergies Allergies Coded Allergies Type Severity Reaction Last Updated Verified No Known Drug Allergies 11/06/17 No Physical Exam Physical Exam Constitutional: Well developed, well nourished, no acute distress, non-toxic appearance. [] HENT: Normocephalic, atraumatic, bilateral external ears normal, oropharynx moist, no oral exudates, nose normal. [] Eyes: PERRLA, EOMI, conjunctiva normal, no discharge. [] Cardiovascular:Heart rate regular rhythm, no murmur [] Lungs & Thorax: Bilateral breath sounds clear to auscultation [] Abdomen: Bowel sounds normal, soft, no tenderness, no masses, no pulsatile masses. [] Skin: Warm, dry, no erythema, no rash. [] Back: No tenderness, no CVA tenderness. [] Extremities: No tenderness, no edema. [] Neurologic: Alert and oriented X 3, no focal deficits noted. [] Psychologic: Affect normal, judgement normal, mood normal. [] Current Patient Data Vital Signs Vital Signs Date Time Temp Pulse Resp B/P (MAP) Pulse Ox O2 Delivery O2 Flow Rate FiO2 07/12/19 01:40 98.2 70 18 110/59 (76) 95 Room Air 98.2 EKG EKG [] Radiology/Procedures Radiology/Procedures [] Course & Med Decision Making Course & Med Decision Making Pertinent Labs and Imaging studies reviewed. (See chart for details) []22-year-old male presents emergency Department complaints of sickle cell pain. Patient was recently seen here approximately one half weeks ago. He has an appointment on Wednesday for follow-up. They've recently changed his medications to 15 mg oxycodone. Patient states ran out of medication yesterday and his new prescription of oxycodone will not be ready until this morning. Patient states his pain is primarily located in his legs as well as his lower back. He denies any shortness of breath or chest pain at this time. Patient denies any fevers. Nothing makes his pain better. Patient improved after po oxycodone and zofran Reassessment of pain 0320 - significantly approved Discussed follow up with patient at [facility] as scheduled Candelario Disclaimer Dragon Disclaimer This electronic medical record was generated, in whole or in part, using a voice recognition dictation system. Departure Departure Impression: Primary Impression: Sickle cell anemia with pain Disposition: HOME, SELF-CARE Condition: IMPROVED Referrals: UNKNOWN PCP NAME (PCP) Patient Instructions: Sickle Cell Pain Crisis, [id number] Additional Instructions: Recommend follow up with PCP at [facility] as scheduled for Wednesday Return to the ER with worsening symptoms, intractable pain, fever, altered mental status Tylenol/Motrin as needed for pain ANGI DVAISON MD Jul 12, 2019 02:08
[2019-07-12] MEDS ORDERED: ONDANSETRON ODT 4 MG TAB.RAPDIS. PO ONE (02:15)
[2019-07-12] MEDS ORDERED: oxyCODONE IR 5 MG TABLET PO ONE (02:15)
== END 2019-07-12 03:24 | disposition home or self-care (01) ==
LOC: ER 01:37
DX: D57.00 Hb-SS disease with crisis, unspecified (principal); R52 Pain, unspecified; Z94.6 Bone transplant status; F12.90 Cannabis use, unspecified, uncomplicated
CPT/HCPCS: 99283; Q0162

== ENCOUNTER 2019-07-18 19:40 | Emergency (ER) | payer BC ==
[~2019-07-18] VITALS: Ht 175.3 cm; Wt 72.6 kg
[2019-07-18] MEDS ORDERED: fentaNYL PF VIAL 100 MCG/2 ML VIAL IVP STA (20:54)
[2019-07-18] MEDS ORDERED: KETAMINE HCL IN NACL, ISO-OSM 50 MG/5 ML SYRINGE IV STA (20:54)
[2019-07-18] MEDS ORDERED: IV NORMAL SALINE 1000ML BAG 1,000 ML IV STA (20:55)
--- NOTE | 2019-07-18 21:00 | PHYS DOC ---
Past Medical History Past Medical History: Sickle Cell Disease Additional Past Medical Histor: AVASCULAR NECROSIS OF R HIP (RC CRAFT APRN) Past Surgical History: No Surgical History Additional Past Surgical Histo: L HIP BONE GRAFT (RC CRAFT APRN) Alcohol Use: None Drug Use: Marijuana (RC CRAFT APRN) Attending Signature I have participated in the care of this patient and I have reviewed and agree with all pertinent clinical information above including history, exam, and recommendations. (ANGI DAVISON MD) Adult General Chief Complaint Chief Complaint: GENERALIZED BODY ACHES HPI HPI Patient is a 24 year old male who presents with sickle cell pain has been ongoing for 5 days. He states that he was here 4-5 days ago and that helped some. He takes oxycodone at home but he states his medicine has not been helping. Rates his pain as 8 out of 10 in severity. (RC CRAFT APRN) Review of Systems Review of Systems Constitutional: Denies fever or chills [] Eyes: Denies change in visual acuity, redness, or eye pain [] HENT: Denies nasal congestion or sore throat [] Respiratory: Denies cough or shortness of breath [] Cardiovascular: No additional information not addressed in HPI [] GI: Denies abdominal pain, nausea, vomiting, bloody stools or diarrhea [] : Denies dysuria or hematuria [] Musculoskeletal: Reports back and joint pain. Integument: Denies rash or skin lesions [] Neurologic: Denies headache, focal weakness or sensory changes [] Endocrine: Denies polyuria or polydipsia [] Complete systems were reviewed and found to be within normal limits, except as documented in this note. (RC CRAFT APRN) Current Medications Current Medications Current Medications Medications (Trade) Dose Ordered Sig/Glenis Start Time Stop Time Status Last Admin Dose Admin Fentanyl Citrate (Fentanyl 2ml Vial) 100 mcg 1X ONCE 07/18/19 23:00 07/18/19 23:01 DC 07/18/19 22:34 100 MCG Ketamine HCl (Ketamine) 20 mg 1X STAT 07/18/19 20:54 07/18/19 20:56 DC 07/18/19 21:17 20 MG Ondansetron HCl (Zofran) 4 mg 1X ONCE 07/18/19 22:00 07/18/19 22:01 DC 07/18/19 21:31 4 MG Sodium Chloride 1,000 ml @ 1,000 mls/hr 1X STAT 07/18/19 20:55 07/18/19 21:54 DC 07/18/19 21:16 1,000 MLS/HR (ANGI DAVISON MD) Allergies Allergies Allergies Coded Allergies Type Severity Reaction Last Updated Verified No Known Drug Allergies 11/06/17 No (ANGI DAVISON MD) Physical Exam Physical Exam Constitutional: Well developed, well nourished, no acute distress, non-toxic appearance. [] HENT: Normocephalic, atraumatic, bilateral external ears normal, oropharynx moist, no oral exudates, nose normal. [] Eyes: PERRLA, EOMI, conjunctiva normal, no discharge. [] Neck: Normal range of motion, no tenderness, supple, no stridor. [] Cardiovascular:Heart rate regular rhythm, no murmur [] Lungs & Thorax: Bilateral breath sounds clear to auscultation [] Abdomen: Bowel sounds normal, soft, no tenderness, no masses, no pulsatile masses. [] Skin: Warm, dry, no erythema, no rash. [] Back: No tenderness, no CVA tenderness. [] Extremities: No tenderness, no cyanosis, no clubbing, ROM intact, no edema. [] Neurologic: Alert and oriented X 3, normal motor function, normal sensory function, no focal deficits noted. [] Psychologic: Affect normal, judgement normal, mood normal. [] (RC CRAFT APRN) Current Patient Data Vital Signs Vital Signs Date Time Temp Pulse Resp B/P (MAP) Pulse Ox O2 Delivery O2 Flow Rate FiO2 07/18/19 22:36 74 23 120/67 (84) 95 Room Air (ANGI DAVISON MD) EKG EKG [] (RC CRAFT APRN) Radiology/Procedures Radiology/Procedures [] (RC CRAFT APRN) Course & Med Decision Making Course & Med Decision Making Pertinent Labs and Imaging studies reviewed. (See chart for details) Discussed symptoms with patient. The patient does not want to stay in hospital or get lab work. Will order sub-dissociative Ketamine and Fentanyl to try to get pain under control. The patient feels better after ketamine and fentanyl. Will d/c home. (RC CRAFT APRN) Dragon Disclaimer Dragon Disclaimer This electronic medical record was generated, in whole or in part, using a voice recognition dictation system. (RC CRAFT APRN) Departure Departure Impression: Primary Impression: Sickle cell anemia with pain Disposition: HOME, SELF-CARE Condition: STABLE Referrals: NO PCP (PCP) Patient Instructions: Sickle Cell Pain Crisis Additional Instructions: Thank you for visiting [facility]. We appreciate you trusting us with your care. If any additional problems come up don't hesitate to return to visit us. Please follow up with your primary care provider so they can plan additional care if needed and know about the problem that you had. If symptoms worsen come back to the Emergency Department. Any concerning symptoms that start such as chest pain, shortness of air, weakness or numbness on one side of the body, running high fevers or any other concerning symptoms return to the ER. RC CRAFT APRN Jul 18, 2019 21:00 ANGI DAVISON MD Jul 19, 2019 02:16
[2019-07-18] MEDS ORDERED: ONDANSETRON PF 4 MG/2 ML VIAL. IVP ONE (22:00)
[2019-07-18 22:36] VITALS: BP 120/67
[2019-07-18] MEDS ORDERED: fentaNYL PF VIAL 100 MCG/2 ML VIAL IV ONE (23:00)
== END 2019-07-18 22:40 | disposition home or self-care (01) ==
LOC: ER 19:40
DX: D57.1 Sickle-cell disease without crisis (principal); M54.9 Dorsalgia, unspecified; Z96.7 Presence of other bone and tendon implants; F12.90 Cannabis use, unspecified, uncomplicated
CPT/HCPCS: 96374; 96375; 96376; 99284; J2405; J3010; J7030

== ENCOUNTER 2019-07-22 18:35 | Emergency (ER) | payer BC ==
[~2019-07-22] VITALS: Ht 175.3 cm; Wt 76.2 kg
--- NOTE | 2019-07-22 19:13 | PHYS DOC ---
Past Medical History Past Medical History: Sickle Cell Disease Additional Past Medical Histor: AVASCULAR NECROSIS OF R HIP Past Surgical History: No Surgical History Additional Past Surgical Histo: L HIP BONE GRAFT Alcohol Use: None Drug Use: Marijuana Adult General Chief Complaint Chief Complaint: PAIN CONTROL HPI HPI 24-year-old male presents to emergency Department complaints of fever 2 days, sickle cell pain upper and lower back, states is been taking Tylenol as well as ibuprofen. Fever has improved. However given the pain shortness of breath he presented to the ER for further evaluation. Nothing makes his pain worse, nothing makes his pain better. Patient is on oxycodone as well as OxyContin. Review of Systems Review of Systems Constitutional: chills Eyes: Denies change in visual acuity, redness, or eye pain [] HENT: Denies nasal congestion or sore throat [] Respiratory: shortness of breath Cardiovascular: No additional information not addressed in HPI [] GI: Denies abdominal pain, nausea, vomiting, bloody stools or diarrhea [] : Denies dysuria or hematuria [] Musculoskeletal: back pain Neurologic: Denies headache, focal weakness or sensory changes [] All other systems were reviewed and found to be within normal limits, except as documented in this note. Current Medications Current Medications Current Medications Medications (Trade) Dose Ordered Sig/Glenis Start Time Stop Time Status Last Admin Dose Admin Hydromorphone HCl (Dilaudid) 2 mg 1X ONCE 07/22/19 19:15 07/22/19 19:16 DC 07/22/19 19:45 2 MG Ondansetron HCl (Zofran Odt) 4 mg 1X ONCE 07/22/19 19:15 07/22/19 19:16 DC 07/22/19 19:45 4 MG Allergies Allergies Allergies Coded Allergies Type Severity Reaction Last Updated Verified No Known Drug Allergies 11/06/17 No Physical Exam Physical Exam Constitutional: Well developed, well nourished, no acute distress, non-toxic appearance. [] HENT: Normocephalic, atraumatic, bilateral external ears normal, oropharynx moist, no oral exudates, nose normal. [] Eyes: PERRLA, EOMI, conjunctiva normal, no discharge. [] Cardiovascular:Heart rate regular rhythm, no murmur [] Lungs & Thorax: Bilateral breath sounds clear to auscultation [] Abdomen: Bowel sounds normal, soft, no tenderness, no masses, no pulsatile masses. [] Skin: Warm, dry, no erythema, no rash. [] Back: No tenderness, no CVA tenderness. [] Extremities: No tenderness, no edema. [] Neurologic: Alert and oriented X 3, no focal deficits noted. [] Psychologic: Affect normal, judgement normal, mood normal. [] Current Patient Data Vital Signs Vital Signs Date Time Temp Pulse Resp B/P (MAP) Pulse Ox O2 Delivery O2 Flow Rate FiO2 07/22/19 19:45 16 98 Room Air 07/22/19 19:19 98.5 99 125/78 (94) 98.5 Lab Values Laboratory Tests Test 07/22/19 19:49 Influenza Type A Antigen Negative (NEGATIVE) Influenza Type B Antigen Negative (NEGATIVE) EKG EKG [] Radiology/Procedures Radiology/Procedures [facility] [address] [place] [address] IMAGING REPORT Signed PATIENT: RASHAUN CHURCH EACCOUNT: [id number] : 1995 LOCATION: ER AGE: 24 SEX: M EXAM STATUS: REG ER ORD. PHYSICIAN: ANGI DAVISON MD REASON: fever/Sickle cell/cough PROCEDURE: CHEST AP ONLY CHEST AP ONLY INDICATION: Fever, sickle cell, cough. COMPARISON STUDY: 06/13/2019. FINDINGS: Lungs: Normal lung volume. No pulmonary mass or consolidation. The tracheobronchial tree and hilar structures are normal. Pleura: No pleural effusion or pneumothorax. Heart and Mediastinum: The cardiomediastinal silhouette is normal. The great vessels of the thorax are normal. IMPRESSION: No acute cardiopulmonary process. Electronically signed by: Garrison Jones MD (07/22/2019 7:43 PM) [id number] DICTATED and SIGNED BY: GARRISON JONES MD DATE: 07/22/191942 [] Course & Med Decision Making Course & Med Decision Making Pertinent Labs and Imaging studies reviewed. (See chart for details) []24-year-old male presents to emergency Department complaints of fever 2 days, sickle cell pain upper and lower back, states is been taking Tylenol as well as ibuprofen. Fever has improved. However given the pain shortness of breath he presented to the ER for further evaluation. Nothing makes his pain worse, nothing makes his pain better. Patient is on oxycodone as well as OxyContin. Xray negative, influenza negative VS reviewed, afebrile dilaudid IM 2mg/Zofran ODT Patient states somewhat better Dragon Disclaimer Dragon Disclaimer This electronic medical record was generated, in whole or in part, using a voice recognition dictation system. Departure Departure Impression: Primary Impression: Sickle cell anemia with pain Additional Impression: Cough Disposition: HOME, SELF-CARE Condition: IMPROVED Referrals: NO PCP (PCP) Patient Instructions: Cough, Adult, [id number], Sickle Cell Pain Crisis Additional Instructions: Recommend follow up with PCP 3 - 5 days Return to the ER with worsening symptoms, intractable pain, fever, altered mental status Tylenol/Motrin as needed for pain hydrocodone x 3 days Scripts Hydrocodone/Apap 5-325 (NORCO 5-325 TABLET) 1 Each Tablet 1-2 TAB PO Q4-6HRS for 3 Days, #40 TAB Prov: ANGI DAVISON MD 07/22/19 Problem Qualifiers ANGI DAVISON MD Jul 22, 2019 19:13
[2019-07-22] MEDS ORDERED: ONDANSETRON ODT 4 MG TAB.RAPDIS. PO ONE (19:15)
[2019-07-22] MEDS ORDERED: HYDROmorphone 2 MG/ML VIAL IM ONE (19:15)
[2019-07-22 19:19] VITALS: BP 125/78
--- NOTE | 2019-07-22 19:46 | RAD ---
CHEST AP ONLY INDICATION: Fever, sickle cell, cough. COMPARISON STUDY: 06/13/2019. FINDINGS: Lungs: Normal lung volume. No pulmonary mass or consolidation. The tracheobronchial tree and hilar structures are normal. Pleura: No pleural effusion or pneumothorax. Heart and Mediastinum: The cardiomediastinal silhouette is normal. The great vessels of the thorax are normal. IMPRESSION: No acute cardiopulmonary process. Electronically signed by: Hector Jones MD (07/22/2019 7:43 PM) [facility]
[2019-07-22 20:14] LABS: INFLUENZA A PATIENT NEGATIVE (NEGATIVE); INFLUENZA B PATIENT NEGATIVE (NEGATIVE)
[2019-07-22] MEDS ORDERED: HYDR-3164 PO (20:42)
== END 2019-07-22 20:52 | disposition home or self-care (01) ==
LOC: ER 18:35
DX: D57.00 Hb-SS disease with crisis, unspecified (principal)
CPT/HCPCS: 71045; 87804; 96372; 99285; J1170; Q0162

== ENCOUNTER 2019-07-30 22:18 | Emergency (ER) | payer BC ==
[~2019-07-30] VITALS: Ht 175.3 cm; Wt 72.6 kg
[2019-07-30] MEDS: IV NORMAL SALINE 1000ML BAG 1,000 ML IV ONE (23:30)
[2019-07-30] MEDS: oxyCODONE ER 15 MG TAB.ER.12H PO ONE (23:33)
[2019-07-31] MEDS ORDERED: ONDA4TAB7 PO (00:32)
--- NOTE | 2019-07-31 00:33 | PHYS DOC ---
Past Medical History Past Medical History: Sickle Cell Disease Additional Past Medical Histor: AVASCULAR NECROSIS OF R HIP Past Surgical History: No Surgical History Additional Past Surgical Histo: L HIP BONE GRAFT Alcohol Use: None Drug Use: Marijuana Adult General Chief Complaint Chief Complaint: LOWER EXT PAIN HPI HPI Patient is a 24 year old AA male, who is well-known to this emergency department who presents to the emergency room with complaints of a sickle cell crisis. Patient states he has had upper and lower back pain and bilateral leg pain this evening. He has been out of his OxyContin for the last 3 days. Patient states his family has been sick with a gastrointestinal bug recently. He reports that he had 2 episodes of nausea and vomiting and one episode of diarrhea today. He denies any fever, cough, shortness of breath, rash, dysuria, hematuria, increased urinary frequency, sore throat, ear pain, or headache. Patient states this is how he feels when he is out of his pain medication. Patient states he does not have another appointment for his pain medication until later this week. Review of Systems Review of Systems Constitutional: Denies fever or chills [] Eyes: Denies change in visual acuity, redness, or eye pain [] HENT: Denies nasal congestion or sore throat [] Respiratory: Denies cough or shortness of breath [] Cardiovascular: No additional information not addressed in HPI [] GI: Denies abdominal pain; see HPI : Denies dysuria or hematuria [] Musculoskeletal: See HPI Integument: Denies rash or skin lesions [] Neurologic: Denies headache, focal weakness or sensory changes [] Complete systems were reviewed and found to be within normal limits, except as documented in this note. Current Medications Current Medications Current Medications Medications (Trade) Dose Ordered Sig/[facility] Start Time Stop Time Status Last Admin Dose Admin Oxycodone HCl (OxyCONTIN) 15 mg 1X ONCE 07/30/19 23:45 07/30/19 23:46 DC 07/30/19 23:33 15 MG Allergies Allergies Allergies Coded Allergies Type Severity Reaction Last Updated Verified No Known Drug Allergies 11/06/17 No Physical Exam Physical Exam Constitutional: Well developed, well nourished, no acute distress, non-toxic appearance. [] HENT: Normocephalic, atraumatic, bilateral external ears normal, oropharynx moist, no oral exudates, nose normal. [] Eyes: PERRLA, EOMI, conjunctiva normal, no discharge. [] Neck: Normal range of motion, no stridor. [] Cardiovascular:Heart rate regular rhythm, S1 and S2 murmur noted Lungs & Thorax: Bilateral breath sounds clear to auscultation; Respirations even and unlabored, no retractions, no respiratory distress Abdomen: Bowel sounds normal, soft, no tenderness, no masses, no pulsatile masses. [] Skin: Warm, dry, no erythema, no rash. [] Back: No tenderness, no CVA tenderness. [] Extremities: No cyanosis, ROM intact, no edema. [] Neurologic: Alert and oriented X 3, no focal deficits noted. [] Psychologic: Affect normal, judgement normal, mood normal. [] Current Patient Data Vital Signs Vital Signs Date Time Temp Pulse Resp B/P (MAP) Pulse Ox O2 Delivery O2 Flow Rate FiO2 07/30/19 23:33 26 91 Room Air 07/30/19 22:50 98.7 78 133/60 (84) 98.7 EKG EKG [] Radiology/Procedures Radiology/Procedures [] Course & Med Decision Making Course & Med Decision Making Pertinent Labs and Imaging studies reviewed. (See chart for details) Is a 24-year-old -[place] male who presented to the emergency room with complaints of back pain, and bilateral lower extremity pain after being out of his pain medication for the last 3 days. Patient also reported nausea vomiting and diarrhea. He was given 15 mg of OxyContin ER in the emergency department. Patient did not vomit after taking this medication he was able to tolerate by mouth fluids. Patient discharged from the emergency room encouraged follow-up with his primary care doctor this week as planned for a refill of his pain medication. Return to the ER if symptoms worsen. PT verbalized an understanding of home care, medications, follow-up, and return to ED instructions and was in agreement with the plan of care. [] Dragon Disclaimer Dragon Disclaimer This electronic medical record was generated, in whole or in part, using a voice recognition dictation system. Departure Departure Impression: Primary Impression: Sickle cell anemia with pain Disposition: HOME, SELF-CARE Condition: STABLE Referrals: NO PCP (PCP) Patient Instructions: Sickle Cell Pain Crisis, [id number] Additional Instructions: Follow up with your doctor this week as planned for a refill of your pain medication. Recommend clear fluids x24 hours then advance as tolerated starting with bland foods such as bananas, rice, applesauce, and toast. Fill the prescription and take as directed as needed for nausea. Return to the ER if symptoms worsen. Scripts Ondansetron Hcl (ZOFRAN) 4 Mg Tablet 1 TAB PO Q6HRS PRN for NAUSEA/VOMITING for 4 Days, #10 TAB 0 Refills Prov: MILAN VELOZ APRN 07/31/19 MILAN VELOZ APRN Jul 31, 2019 00:33
[2019-07-31 01:20] VITALS: BP 121/74
== END 2019-07-31 01:30 | disposition home or self-care (01) ==
LOC: ER 22:18
DX: D57.00 Hb-SS disease with crisis, unspecified (principal); R11.2 Nausea with vomiting, unspecified; R19.7 Diarrhea, unspecified
CPT/HCPCS: 96360; 99284; J7030

== ENCOUNTER 2019-09-03 19:00 | Emergency (ER) | payer BC ==
[~2019-09-03 19:00] MED LIST changes: +ONDA4TAB7 PO
[2019-09-03] MEDS ORDERED: diphenhydrAMINE 50 MG/ML VIAL IVP ONE (19:30)
[2019-09-03] MEDS ORDERED: IV NORMAL SALINE 1000ML BAG 1,000 ML IV ONE (19:30)
[2019-09-03] MEDS ORDERED: ONDANSETRON PF 4 MG/2 ML VIAL. IVP ONE (19:30)
[2019-09-03] MEDS ORDERED: fentaNYL PF VIAL 100 MCG/2 ML VIAL IVP ONE ×3 (19:30→21:45)
[2019-09-03 19:32] LABS: BASO # 0.1 x10^3/uL (0.0-0.2); BASO % 1 % (0-3); EOS # 0.1 x10^3/uL (0.0-0.7); EOS % 1 % (0-3); HEMATOCRIT 28.9 % (39.0-53.0); HEMOGLOBIN 10.5 g/dL (13.0-17.5); LYMPH # 3.4 x10^3/uL (1.0-4.8); LYMPH % 25 % (24-48); MEAN CORPUSCULAR HEMOGLOBIN 32 pg (25-35); MEAN CORPUSCULAR HGB CONC 36 g/dL (31-37); MEAN CORPUSCULAR VOLUME 87 fL (79-100); MONO # 1.7 x10^3/uL (0.0-1.1); MONO % 12 % (0-9); NEUT # 8.4 x10^3/uL (1.8-7.7); NEUT % 61 % (31-73); PLATELET COUNT 550 x10^3/uL (140-400); RED BLOOD COUNT 3.31 x10^6/uL (4.30-5.70); RED CELL DISTRIBUTION WIDTH 21.4 % (11.5-14.5); WHITE BLOOD COUNT 13.8 x10^3/uL (4.0-11.0)
[2019-09-03 19:33] LABS: BILIRUBIN,URINE NEGATIVE (NEG); CLARITY,URINE CLEAR; COLOR,URINE YELLOW; NITRITE,URINE NEGATIVE (NEG); PH,URINE 7.5; PROTEIN,URINE NEGATIVE (NEG-TRACE)
[2019-09-03 19:39] LABS: BACTERIA,URINE 0 /HPF (0-FEW); RBC,URINE 0 /HPF (0-2)
[2019-09-03 19:40] LABS: BARBITURATES NEG (NEG); BENZODIAZEPINES NEG (NEG); CANNABINOIDS POS (NEG); COCAINE NEG (NEG); METHADONE NEG (NEG); OPIATES POS (NEG); PHENCYCLIDINE NEG (NEG); SQUAMOUS EPITHELIAL CELL,UR OCC /LPF
[2019-09-03 19:42] LABS: AMPHETAMINE/METHAMPHETAMINE NEG (NEG)
[2019-09-03 19:46] LABS: CALCIUM 8.9 mg/dL (8.5-10.1); CREATININE 0.7 mg/dL (0.7-1.3); GFR 170.6; POTASSIUM 4.1 mmol/L (3.5-5.1)
[2019-09-03 19:53] LABS: ALBUMIN 4.4 g/dL (3.4-5.0); ALBUMIN/GLOBULIN RATIO 1.3 (1.0-1.7); TOTAL BILIRUBIN 1.7 mg/dL (0.2-1.0); TOTAL PROTEIN 7.9 g/dL (6.4-8.2)
[2019-09-03 19:56] LABS: % ATYL 1 % (0-0); % BANDS 1 % (0-9); % LYMPHS 10 % (24-48); % MONOS 9 % (0-10); % SEGS 79 % (35-66); ANISOCYTOSIS MOD; NUCLEATED RBC 1; PLT ESTIMATE INCREASED (ADEQUATE); POLYCHROMASIA MOD
[2019-09-03 19:57] LABS: SCHISTOCYTES OCC; SICKLE CELLS MANY; TARGET CELLS MOD
[2019-09-03] MEDS ORDERED: OXYC15TA22 PO (21:45)
--- NOTE | 2019-09-03 21:45 | PHYS DOC ---
Past Medical History Past Medical History: Sickle Cell Disease Additional Past Medical Histor: AVASCULAR NECROSIS OF R HIP Past Surgical History: No Surgical History Additional Past Surgical Histo: L HIP BONE GRAFT Alcohol Use: None Drug Use: Marijuana Adult General Chief Complaint Chief Complaint: BACK PAIN - NO INJURY HPI HPI Patient is a 24 year old male with history of sickle cell presenting to the ED today complaining of sharp constant 8 out of 10 generalized back pain and bilateral lower extremity pain that she states has been going on over the last month but got worse over this weekend. Patient reports the pain is consistent with his sickle cell. He states he tried taking his hydrocodone with no relief, he reports is out of his oxycodone. He reports he has an appointment coming up with his sickle cell doctor in the course of this week. Patient denies any f ever, nausea, vomiting. Review of Systems Review of Systems Constitutional: Denies fever or chills [] Eyes: Denies change in visual acuity, redness, or eye pain [] HENT: Denies nasal congestion or sore throat [] Respiratory: Denies cough or shortness of breath [] Cardiovascular: No additional information not addressed in HPI [] GI: Denies abdominal pain, nausea, vomiting, bloody stools or diarrhea [] : Denies dysuria or hematuria [] Musculoskeletal: Reports back and lower extremity pain from sickle cell Integument: Denies rash or skin lesions [] Neurologic: Denies headache, focal weakness or sensory changes [] All other systems were reviewed and found to be within normal limits, except as documented in this note. Current Medications Current Medications Current Medications Medications (Trade) Dose Ordered Sig/[facility] Start Time Stop Time Status Last Admin Dose Admin Diphenhydramine HCl (Benadryl) 25 mg 1X ONCE 09/03/19 19:30 09/03/19 19:31 DC 09/03/19 19:37 25 MG Fentanyl Citrate (Fentanyl 2ml Vial) 50 mcg 1X ONCE 09/03/19 21:00 09/03/19 21:05 DC 09/03/19 21:03 50 MCG Ondansetron HCl (Zofran) 4 mg 1X ONCE 09/03/19 19:30 09/03/19 19:31 DC 09/03/19 19:36 4 MG Sodium Chloride 1,000 ml @ 1,000 mls/hr 1X ONCE 1/12/20 19:30 09/03/19 20:29 DC 09/03/19 19:40 1,000 MLS/HR Allergies Allergies Allergies Coded Allergies Type Severity Reaction Last Updated Verified No Known Drug Allergies 11/06/17 No Physical Exam Physical Exam Constitutional: Well developed, well nourished, no acute distress, non-toxic appearance. [] HENT: Normocephalic, atraumatic, bilateral external ears normal, oropharynx moist, no oral exudates, nose normal. [] Eyes: PERRLA, EOMI, conjunctiva normal, no discharge. [] Neck: Normal range of motion, no tenderness, supple, no stridor. [] Cardiovascular:Heart rate regular rhythm, no murmur [] Lungs & Thorax: Bilateral breath sounds clear to auscultation [] Abdomen: Bowel sounds normal, soft, no tenderness, no masses, no pulsatile masses. [] Skin: Warm, dry, no erythema, no rash. [] Back: No tenderness, no CVA tenderness. [] Extremities: No tenderness, no cyanosis, no clubbing, ROM intact, no edema. [] Neurologic: Alert and oriented X 3, normal motor function, normal sensory f unction, no focal deficits noted. [] Psychologic: Affect normal, judgement normal, mood normal. [] Current Patient Data Vital Signs Vital Signs Date Time Temp Pulse Resp B/P (MAP) Pulse Ox O2 Delivery O2 Flow Rate FiO2 09/03/19 21:03 20 98 09/03/19 19:10 98.0 65 124/65 (84) Room Air 98.0 Lab Values Laboratory Tests Test 09/03/19 19:15 White Blood Count 13.8 x10^3/uL (4.0-11.0) H Red Blood Count 3.31 x10^6/uL (4.30-5.70) L Hemoglobin 10.5 g/dL (13.0-17.5) L Hematocrit 28.9 % (39.0-53.0) L Mean Corpuscular Volume 87 fL (79-100) Mean Corpuscular Hemoglobin 32 pg (25-35) Mean Corpuscular Hemoglobin Concent 36 g/dL (31-37) Red Cell Distribution Width 21.4 % (11.5-14.5) H Platelet Count 550 x10^3/uL (140-400) H Neutrophils (%) (Auto) 61 % (31-73) Lymphocytes (%) (Auto) 25 % (24-48) Monocytes (%) (Auto) 12 % (0-9) H Eosinophils (%) (Auto) 1 % (0-3) Basophils (%) (Auto) 1 % (0-3) Neutrophils # (Auto) 8.4 x10^3/uL (1.8-7.7) H Lymphocytes # (Auto) 3.4 x10^3/uL (1.0-4.8) Monocytes # (Auto) 1.7 x10^3/uL (0.0-1.1) H Eosinophils # (Auto) 0.1 x10^3/uL (0.0-0.7) Basophils # (Auto) 0.1 x10^3/uL (0.0-0.2) Segmented Neutrophils % 79 % (35-66) H Band Neutrophils % 1 % (0-9) Lymphocytes % 10 % (24-48) L Atypical Lymphocytes % (Manual) 1 % (0-0) H Monocytes % 9 % (0-10) Nucleated Red Blood Cells 1 Platelet Estimate Increased (ADEQUATE) Giant Platelets Occ Polychromasia Mod Anisocytosis Mod Sickle Cells Many Target Cells Mod Schistocytes Occ Absolute Reticulocyte Count 0.120 x10^6/uL (0.020-0.120) Percent Reticulocyte Count 3.6 % (0.5-2.3) H Immature Reticulocyte Fraction 0.71 (0.20-0.60) H Urine Collection Type Unknown Urine Color Yellow Urine Clarity Clear Urine pH 7.5 Urine Specific [place] 1.010 Urine Protein Negative mg/dL (NEG-TRACE) Urine Glucose (UA) Negative mg/dL (NEG) Urine Ketones (Stick) Negative mg/dL (NEG) Urine Blood Negative (NEG) Urine Nitrite Negative (NEG) Urine Bilirubin Negative (NEG) Urine Urobilinogen Dipstick 4.0 mg/dL (0.2 mg/dL) Urine Leukocyte Esterase Negative (NEG) Urine RBC 0 /HPF (0-2) Urine WBC 1-4 /HPF (0-4) Urine Squamous Epithelial Cells Occ /LPF Urine Bacteria 0 /HPF (0-FEW) Sodium Level 140 mmol/L (136-145) Potassium Level 4.1 mmol/L (3.5-5.1) Chloride Level 105 mmol/L (98-107) Carbon Dioxide Level 27 mmol/L (21-32) Anion Gap 8 (6-14) Blood Urea Nitrogen 10 mg/dL (8-26) Creatinine 0.7 mg/dL (0.7-1.3) Estimated GFR (Cockcroft-Gault) 170.6 BUN/Creatinine Ratio 14 (6-20) Glucose Level 96 mg/dL (70-99) Calcium Level 8.9 mg/dL (8.5-10.1) Total Bilirubin 1.7 mg/dL (0.2-1.0) H Aspartate Amino Transferase (AST) 47 U/L (15-37) H Alanine Aminotransferase (ALT) 34 U/L (16-63) Alkaline Phosphatase 112 U/L (46-116) Total Protein 7.9 g/dL (6.4-8.2) Albumin 4.4 g/dL (3.4-5.0) Albumin/Globulin Ratio 1.3 (1.0-1.7) Urine Opiates Screen Pos (NEG) Urine Methadone Screen Neg (NEG) Urine Barbiturates Neg (NEG) Urine Phencyclidine Screen Neg (NEG) Urine Amphetamine/Methamphetamine Neg (NEG) Urine Benzodiazepines Screen Neg (NEG) Urine Cocaine Screen Neg (NEG) Urine Cannabinoids Screen Pos (NEG) Ethyl Alcohol Level < 10 mg/dL (0-10) Urine Ethyl Alcohol Neg (NEG) Laboratory Tests 09/03/19 19:15 Laboratory Tests 09/03/19 19:15 EKG EKG [] Radiology/Procedures Radiology/Procedures [] Course & Med Decision Making Course & Med Decision Making Pertinent Labs and Imaging studies reviewed. (See chart for details) This is a 24-year-old male patient presenting to the ED today with sickle cell pain to his back and lower extremity. Patient's labs were around his baseline. There is nothing acute today. In the ED he was given IV fluids and pain medicine. Pain is well controlled. He reports he has an appointment with his doctor for sickle cell in the course of this week. Given prescription for oxycodone. Discharged to home in stable condition Dragon Disclaimer Dragon Disclaimer This electronic medical record was generated, in whole or in part, using a voice recognition dictation system. Departure Departure Impression: Primary Impression: Sickle cell pain crisis Disposition: HOME, SELF-CARE Condition: STABLE Referrals: UNKNOWN PCP NAME (PCP) Follow-up with the sickle cell doctor in the course of this week Patient Instructions: Sickle Cell Disease-[facility] Additional Instructions: You were evaluated in the emergency room for sickle cell pain. We encourage you to following-up with your own doctor in the course of this week or next week. Take the prescribed medications as ordered. Come back to the ED at any point symptoms worsen Scripts Oxycodone Hcl (ROXICODONE) 15 Mg Tablet 1 TAB PO Q6HRS PRN for pain MDD 4 Tablet(s), #30 TAB 0 Refills Prov: ROMY MEDEL APRN 09/03/19 ROMY MEDEL APRN Sep 03, 2019 21:45
[2019-09-03 22:00] VITALS: BP 113/56
== END 2019-09-03 22:28 ==
LOC: ER 19:00
DX: D57.219 Sickle-cell/Hb-C disease with crisis, unspecified (principal); M54.89 Other dorsalgia; M79.661 Pain in right lower leg; M79.662 Pain in left lower leg; F12.90 Cannabis use, unspecified, uncomplicated; Z98.890 Other specified postprocedural states; Z79.899 Other long term (current) drug therapy
CPT/HCPCS: 36415; 80053; 80307; 81001; 85007; 85025; 85045; 96374; 99284; G0480; J1200; J2405; J3010; J7030

== ENCOUNTER 2019-09-20 14:00 | Emergency (ER) | payer BC ==
[~2019-09-20] VITALS: Ht 175.3 cm; Wt 160.0 kg
[~2019-09-20 14:00] MED LIST changes: +OXYC15TA22 PO
[2019-09-20] MEDS ORDERED: IV NORMAL SALINE 1000ML BAG 1,000 ML IV STA (15:21)
[2019-09-20] MEDS ORDERED: fentaNYL PF VIAL 100 MCG/2 ML VIAL IV STA (15:21)
--- NOTE | 2019-09-20 15:33 | PHYS DOC ---
Past Medical History Past Medical History: Sickle Cell Disease Additional Past Medical Histor: AVASCULAR NECROSIS OF R HIP Past Surgical History: No Surgical History Additional Past Surgical Histo: L HIP BONE GRAFT Alcohol Use: None Drug Use: Marijuana Adult General Chief Complaint Chief Complaint: PAIN CONTROL HPI HPI Patient is a 24 year old male with history of sickle cell presenting to the ED today complaining of sharp constant 10 out of 10 body wide generalized pain that he states has been going on since yesterday. Patient reports the pain is consistent with his sickle cell. He states he tried has been taking his oxycodone at home but that has not helped. He states he saw his doctor yesterday. Denies fever or any other complaints. Complete ROS were reviewed and found to be within normal limits, except as documented in the HPI Current Medications Current Medications Current Medications Medications (Trade) Dose Ordered Sig/[facility] Start Time Stop Time Status Last Admin Dose Admin Fentanyl Citrate (Fentanyl 2ml Vial) 100 mcg 1X STAT 09/20/19 15:21 09/20/19 15:25 DC 09/20/19 15:42 100 MCG Hydromorphone HCl (Dilaudid) 0.5 mg 1X STAT 09/20/19 16:00 09/20/19 16:04 DC 09/20/19 16:19 0.5 MG Sodium Chloride 1,000 ml @ 1,000 mls/hr 1X STAT 09/20/19 15:21 09/20/19 16:20 DC 09/20/19 15:42 1,000 MLS/HR Allergies Allergies Allergies Coded Allergies Type Severity Reaction Last Updated Verified No Known Drug Allergies 11/06/17 No Physical Exam Physical Exam Constitutional: Well developed, well nourished, appears in distress due to pain HENT: Normocephalic, atraumatic, bilateral external ears normal, oropharynx moist, no oral exudates, nose normal. [] Eyes: PERRLA, EOMI, conjunctiva normal, no discharge. [] Neck: Normal range of motion, no tenderness, supple, no stridor. [] Cardiovascular:Heart rate regular rhythm, no murmur [] Lungs & Thorax: Bilateral breath sounds clear to auscultation [] Abdomen: Bowel sounds normal, soft, no tenderness, no masses, no pulsatile masses. [] Skin: Warm, dry, no erythema, no rash. [] Neurologic: Alert and oriented X 3, normal motor function, normal sensory function, no focal deficits noted. [] Psychologic: Affect normal, judgement normal, mood normal. [] Current Patient Data Vital Signs Vital Signs Date Time Temp Pulse Resp B/P (MAP) Pulse Ox O2 Delivery O2 Flow Rate FiO2 09/20/19 16:19 Room Air 09/20/19 14:57 98.5 119 24 135/72 (93) 98 98.5 EKG EKG [] Radiology/Procedures Radiology/Procedures [] Course & Med Decision Making Course & Med Decision Making Pertinent Labs and Imaging studies reviewed. (See chart for details) I am familiar with this patient as I have treated him multiple times in the [facility]. The patient has been seen in our ER multiple times in the last several months due to sickle cell crisis. I discussed with him which medications help and he states that Fentanyl helps. I have given him Ketamine for sickle cell pain in the past and he states he prefers the Fentanyl. I asked patient if he would like to be admitted to the hospital to get his sickle cell pain under control and he declines to be admitted. Since the patient does not want to be admitted I will treat him for pain in ER and have follow up with primary care for further care. After pain medication patient is feeling somewhat better. Will d/c home. Dragon Disclaimer Dragon Disclaimer This electronic medical record was generated, in whole or in part, using a voice recognition dictation system. Departure Departure Impression: Primary Impression: Sickle cell anemia with pain Disposition: HOME, SELF-CARE Condition: STABLE Referrals: UNKNOWN PCP NAME (PCP) Patient Instructions: Sickle Cell Pain Crisis Additional Instructions: Thank you for visiting [facility]. We appreciate you trusting us with your care. If any additional problems come up don't hesitate to return to visit us. Please follow up with your primary care provider so they can plan additional care if needed and know about the problem that you had. If symptoms worsen come back to the Emergency Department. Any concerning symptoms that start such as chest pain, shortness of air, weakness or numbness on one side of the body, running high fevers or any other concerning symptoms return to the ER. RC CRAFT APRN Sep 20, 2019 15:33
[2019-09-20] MEDS ORDERED: HYDROmorphone 2 MG/ML VIAL IVP STA (16:00)
[2019-09-20 16:16] VITALS: BP 120/59
== END 2019-09-20 16:33 | disposition home or self-care (01) ==
LOC: ER 14:00
DX: D57.00 Hb-SS disease with crisis, unspecified (principal)
CPT/HCPCS: 96374; 96375; 99284; J1170; J3010; J7030; 99285-25

== ENCOUNTER 2019-09-26 19:44 | Emergency (ER) | payer BC ==
[~2019-09-26] VITALS: Ht 175.3 cm; Wt 78.0 kg
[2019-09-26 19:55] VITALS: BP 125/85
[2019-09-26] MEDS ORDERED: KETOROLAC 30 MG/ML VIAL. IVP ONE (20:15)
[2019-09-26] MEDS ORDERED: IV NORMAL SALINE 1000ML BAG 1,000 ML IV ONE (20:15)
[2019-09-26 20:25] LABS: BASO # 0.2 x10^3/uL (0.0-0.2); BASO % 2 % (0-3); EOS # 0.2 x10^3/uL (0.0-0.7); EOS % 2 % (0-3); HEMATOCRIT 28.6 % (39.0-53.0); HEMOGLOBIN 10.1 g/dL (13.0-17.5); LYMPH # 3.7 x10^3/uL (1.0-4.8); LYMPH % 36 % (24-48); MEAN CORPUSCULAR HEMOGLOBIN 31 pg (25-35); MEAN CORPUSCULAR HGB CONC 35 g/dL (31-37); MEAN CORPUSCULAR VOLUME 87 fL (79-100); MONO # 0.9 x10^3/uL (0.0-1.1); MONO % 8 % (0-9); NEUT # 5.3 x10^3/uL (1.8-7.7); NEUT % 52 % (31-73); PLATELET COUNT 414 x10^3/uL (140-400); RED CELL DISTRIBUTION WIDTH 21.3 % (11.5-14.5); WHITE BLOOD COUNT 10.2 x10^3/uL (4.0-11.0)
[2019-09-26] MEDS ORDERED: HALOPERIDOL LACTATE 5 MG/ML VIAL. IVP ONE (20:30)
[2019-09-26 20:31] LABS: CALCIUM 8.8 mg/dL (8.5-10.1); CREATININE 0.6 mg/dL (0.7-1.3); GFR 203.9; POTASSIUM 4.4 mmol/L (3.5-5.1)
[2019-09-26 20:43] LABS: ALBUMIN 4.5 g/dL (3.4-5.0); ALBUMIN/GLOBULIN RATIO 1.3 (1.0-1.7); TOTAL BILIRUBIN 1.7 mg/dL (0.2-1.0); TOTAL PROTEIN 7.9 g/dL (6.4-8.2)
--- NOTE | 2019-09-26 20:43 | PHYS DOC ---
Past Medical History Past Medical History: Sickle Cell Disease Additional Past Medical Histor: AVASCULAR NECROSIS OF R HIP Past Surgical History: No Surgical History Additional Past Surgical Histo: L HIP BONE GRAFT Alcohol Use: None Drug Use: Marijuana Adult General Chief Complaint Chief Complaint: PAIN CONTROL HPI HPI Patient is a 24 year old -[place] male with history of sickle cell disease who presents with acute bilateral knee pain. Onset was earlier today. P vishnu reports sharp bilateral knee pain described as moderate to severe despite taking hydrocodone prior to ED arrival. Pain is similar to previous pain crisis. Patient denies insult or injury. He has been evaluated in the ED multiple times the past several months for sore sickle cell pain complaints. No reported chest pain shortness of breath or fever. Symptoms usually controlled in the ED with discharge home.[] Review of Systems Review of Systems ROS as per HPI All other systems were reviewed and found to be within normal limits, except as documented in this note. Current Medications Current Medications Current Medications Medications (Trade) Dose Ordered Sig/Glenis Start Time Stop Time Status Last Admin Dose Admin Haloperidol Lactate (Haldol Inj) 2.5 mg 1X ONCE 09/26/19 20:30 09/26/19 20:31 DC Ketorolac Tromethamine (Toradol 30mg Vial) 30 mg 1X ONCE 09/26/19 20:15 09/26/19 20:16 DC 09/26/19 20:22 30 MG Sodium Chloride 1,000 ml @ 1,000 mls/hr 1X ONCE 09/26/19 20:15 09/26/19 21:14 09/26/19 20:23 1,000 MLS/HR Allergies Allergies Allergies Coded Allergies Type Severity Reaction Last Updated Verified No Known Drug Allergies 11/06/17 No Physical Exam Physical Exam Constitutional: Histrionic, lying supine in bed with legs held up into the air. [] HENT: Normocephalic, atraumatic, bilateral external ears normal, nose normal. [] Eyes: PERRLA, tearful. [] Neck: Normal range of motion, no tenderness. [] Cardiovascular:Heart rate regular rhythm, no murmur. [] Lungs & Thorax: Bilateral breath sounds clear to auscultation. [] Abdomen: Bowel sounds normal, soft, no tenderness. [] Skin: Warm, dry, no erythema, no rash. [] Back: No tenderness. [] Extremities: No tenderness, no edema. [] Neurologic: Alert and oriented X 3, normal motor function, normal sensory function, no focal deficits noted. [] Psychologic: Affect anxious, judgement normal, mood normal. [] Current Patient Data Vital Signs Vital Signs Date Time Temp Pulse Resp B/P (MAP) Pulse Ox O2 Delivery O2 Flow Rate FiO2 09/26/19 19:55 98.2 86 24 125/85 (98) 98 Room Air 98.2 Lab Values Laboratory Tests Test 09/26/19 20:15 White Blood Count 10.2 x10^3/uL (4.0-11.0) Red Blood Count 3.25 x10^6/uL (4.30-5.70) L Hemoglobin 10.1 g/dL (13.0-17.5) L Hematocrit 28.6 % (39.0-53.0) L Mean Corpuscular Volume 87 fL (79-100) Mean Corpuscular Hemoglobin 31 pg (25-35) Mean Corpuscular Hemoglobin Concent 35 g/dL (31-37) Red Cell Distribution Width 21.3 % (11.5-14.5) H Platelet Count 414 x10^3/uL (140-400) H Neutrophils (%) (Auto) 52 % (31-73) Lymphocytes (%) (Auto) 36 % (24-48) Monocytes (%) (Auto) 8 % (0-9) Eosinophils (%) (Auto) 2 % (0-3) Basophils (%) (Auto) 2 % (0-3) Neutrophils # (Auto) 5.3 x10^3/uL (1.8-7.7) Lymphocytes # (Auto) 3.7 x10^3/uL (1.0-4.8) Monocytes # (Auto) 0.9 x10^3/uL (0.0-1.1) Eosinophils # (Auto) 0.2 x10^3/uL (0.0-0.7) Basophils # (Auto) 0.2 x10^3/uL (0.0-0.2) Platelet Estimate Pending Absolute Reticulocyte Count 0.141 x10^6/uL (0.020-0.120) Percent Reticulocyte Count 4.3 % (0.5-2.3) H Immature Reticulocyte Fraction 0.68 (0.20-0.60) H Sodium Level 140 mmol/L (136-145) Potassium Level 4.4 mmol/L (3.5-5.1) Chloride Level 104 mmol/L (98-107) Carbon Dioxide Level 27 mmol/L (21-32) Anion Gap 9 (6-14) Blood Urea Nitrogen 4 mg/dL (8-26) L Creatinine 0.6 mg/dL (0.7-1.3) L Estimated GFR (Cockcroft-Gault) 203.9 BUN/Creatinine Ratio 7 (6-20) Glucose Level 99 mg/dL (70-99) Calcium Level 8.8 mg/dL (8.5-10.1) Total Bilirubin Pending Aspartate Amino Transferase (AST) Pending Alanine Aminotransferase (ALT) Pending Alkaline Phosphatase Pending Total Protein Pending Albumin Pending Albumin/Globulin Ratio Pending Laboratory Tests 09/26/19 20:15 Laboratory Tests 09/26/19 20:15 EKG EKG [] Radiology/Procedures Radiology/Procedures [] Course & Med Decision Making Course & Med Decision Making Pertinent Labs and Imaging studies reviewed. (See chart for details) [Labs essentially unchanged from baseline. Patient does not appear to be in acute sickle cell crisis. Patient was able to take an Uber to ED, walk-in to the ED and speak clear coherent sentences in a normal conversational tone to registrar but is unable to sit upright in bed, keep legs out of the air or communicate without crying inconsolably upon entering the room. Suspect psychiatric component as well as narcotic dependence. The patient is at risk for sickle cell crisis, but declines pain medications and left abruptly AGAINST MEDICAL ADVICE when asked about the sudden change in his behavior. Recommended that he follows up with his PCP, cinder snapper her pain management provider for ongoing treatment of chronic pain. He is encouraged to return to the ED should he change his mind regarding further evaluation ] Candelario Disclaimer Dragon Disclaimer This electronic medical record was generated, in whole or in part, using a voice recognition dictation system. Departure Departure Impression: Primary Impression: Sickle cell disease Additional Impression: Chronic pain syndrome Disposition: AGAINST MEDICAL ADVICE Condition: GUARDED Patient Instructions: Chronic Pain Management, Sickle Cell Anemia-Brief Additional Instructions: Follow up with your cinder snapper, PCP or painter and grader cork for management of chronic pain. Return to the ED if you change your mind regarding evaluation and labs. Problem Qualifiers LARA KAY DO Sep 26, 2019 20:43
[2019-09-26 20:58] LABS: % BANDS 1 % (0-9); % BASOS 2 % (0-3); % EOS 2 % (0-5); % LYMPHS 34 % (24-48); % MONOS 7 % (0-10); % SEGS 54 % (35-66); ANISOCYTOSIS MOD; NUCLEATED RBC 3; PLT ESTIMATE INCREASED (ADEQUATE); POLYCHROMASIA MOD
[2019-09-26 20:59] LABS: SCHISTOCYTES FEW; SICKLE CELLS MOD; TARGET CELLS FEW
== END 2019-09-26 20:33 | disposition left against medical advice (07) ==
LOC: ER 19:44
DX: D57.1 Sickle-cell disease without crisis (principal); G89.4 Chronic pain syndrome; M25.561 Pain in right knee; M25.562 Pain in left knee; F12.90 Cannabis use, unspecified, uncomplicated; Z98.890 Other specified postprocedural states
CPT/HCPCS: 36415; 80053; 85007; 85025; 85045; 96374; 99284; J1885; J7030

== ENCOUNTER 2019-10-20 09:57 | Inpatient (IN) | payer BC ==
[~2019-10-20] VITALS: Ht 175.3 cm; Wt 72.7 kg
[2019-10-20] MEDS ORDERED: ONDANSETRON PF 4 MG/2 ML VIAL. IVP ONE (10:15)
[2019-10-20] MEDS ORDERED: IV NORMAL SALINE 1000ML BAG 1,000 ML IV ONE ×2 (10:15→14:15)
[2019-10-20] MEDS: fentaNYL PF VIAL 100 MCG/2 ML VIAL IV PRN ×6 (10:33→23:57)
[2019-10-20 10:45] LABS: BASO # 0.1 x10^3/uL (0.0-0.2); BASO % 1 % (0-3); EOS % 0 % (0-3); HEMATOCRIT 26.3 % (39.0-53.0); HEMOGLOBIN 9.1 g/dL (13.0-17.5); LYMPH # 2.6 x10^3/uL (1.0-4.8); LYMPH % 14 % (24-48); MEAN CORPUSCULAR HEMOGLOBIN 31 pg (25-35); MEAN CORPUSCULAR HGB CONC 35 g/dL (31-37); MEAN CORPUSCULAR VOLUME 88 fL (79-100); MONO # 1.1 x10^3/uL (0.0-1.1); MONO % 6 % (0-9); NEUT # 14.1 x10^3/uL (1.8-7.7); NEUT % 79 % (31-73); PLATELET COUNT 547 x10^3/uL (140-400); RED BLOOD COUNT 2.99 x10^6/uL (4.30-5.70); RED CELL DISTRIBUTION WIDTH 22.6 % (11.5-14.5); WHITE BLOOD COUNT 17.9 x10^3/uL (4.0-11.0)
[2019-10-20 10:56] LABS: CREATININE 0.6 mg/dL (0.7-1.3); GFR 203.9; POTASSIUM 3.7 mmol/L (3.5-5.1)
[2019-10-20 11:02] LABS: ALBUMIN 3.8 g/dL (3.4-5.0); TOTAL BILIRUBIN 1.1 mg/dL (0.2-1.0); TOTAL PROTEIN 7.5 g/dL (6.4-8.2)
--- NOTE | 2019-10-20 11:22 | RAD ---
CHEST AP ONLY History: Back pain. Comparison: July 22, 2019 Findings: No consolidation or pleural effusion. Normal heart size. No pneumothorax. Impression: 1. No acute cardiopulmonary process. Electronically signed by: Nahum Sheriff DO (10/20/2019 11:19 AM) [id number]
[2019-10-20 11:28] LABS: % LYMPHS 9 % (24-48); % MONOS 6 % (0-10); % SEGS 85 % (35-66); PLT ESTIMATE INCREASED (ADEQUATE)
[2019-10-20 11:29] LABS: HYPOCHROMIA PRESENT; MICROCYTOSIS PRESENT; POIKILOCYTOSIS PRESENT; POLYCHROMASIA PRESENT; SICKLE CELLS PRESENT; TARGET CELLS PRESENT
--- NOTE | 2019-10-20 11:42 | PHYS DOC ---
Past Medical History Past Medical History: Sickle Cell Disease Additional Past Medical Histor: AVASCULAR NECROSIS OF R HIP Past Surgical History: No Surgical History Additional Past Surgical Histo: L HIP BONE GRAFT Smoking Status: Current Every Day Smoker Alcohol Use: None Drug Use: Marijuana Adult General Chief Complaint Chief Complaint: PAIN CONTROL HPI HPI Patient is a 24 year old male with history of sickle cell disease who presents to the ED today complaining of 10 out of 10 bilateral lower extremity pain and back pain for 2 days. Patient denies any fever. Patient reports trying to take his pain medicine including oxycodone but no relief. He arrives in the ED extremely tearful. He reports his sister who also has sickle cell just passed aw ay a week ago at [facility]. Review of Systems Review of Systems Constitutional: Denies fever or chills [] Eyes: Denies change in visual acuity, redness, or eye pain [] HENT: Denies nasal congestion or sore throat [] Respiratory: Denies cough or shortness of breath [] Cardiovascular: No additional information not addressed in HPI [] GI: Denies abdominal pain, nausea, vomiting, bloody stools or diarrhea [] : Denies dysuria or hematuria [] Musculoskeletal: Reports back pain and lower extremity pain Integument: Denies rash or skin lesions [] Neurologic: Denies headache, focal weakness or sensory changes [] Psych: Reports grief All other systems were reviewed and found to be within normal limits, except as documented in this note. Current Medications Current Medications Current Medications Medications (Trade) Dose Ordered Sig/Glenis Start Time Stop Time Status Last Admin Dose Admin Fentanyl Citrate (Fentanyl 2ml Vial) 50 mcg PRN Q15MIN PRN 10/20/19 10:15 10/21/19 10:14 10/20/19 13:13 50 MCG Lorazepam (Ativan Inj) 1 mg 1X ONCE 10/20/19 11:15 10/20/19 11:16 DC 10/20/19 11:24 1 MG Ondansetron HCl (Zofran) 4 mg 1X ONCE 10/20/19 10:15 10/20/19 10:18 DC 10/20/19 10:32 4 MG Sodium Chloride 1,000 ml @ 1,000 mls/hr 1X ONCE 10/20/19 10:15 10/20/19 11:14 DC 10/20/19 10:32 1,000 MLS/HR Allergies Allergies Allergies Coded Allergies Type Severity Reaction Last Updated Verified No Known Drug Allergies 11/06/17 No Physical Exam Physical Exam Constitutional: Well developed, well nourished, no acute distress, non-toxic appearance. [] HENT: Normocephalic, atraumatic, bilateral external ears normal, oropharynx moist, no oral exudates, nose normal. [] Eyes: PERRLA, EOMI, conjunctiva normal, no discharge. [] Neck: Normal range of motion, no tenderness, supple, no stridor. [] Cardiovascular:Heart rate regular rhythm, no murmur [] Lungs & Thorax: Bilateral breath sounds clear to auscultation [] Abdomen: Bowel sounds normal, soft, no tenderness, no masses, no pulsatile mas ses. [] Skin: Warm, dry, no erythema, no rash. [] Back: No tenderness, no CVA tenderness. [] Extremities: No tenderness, no cyanosis, no clubbing, ROM intact, no edema. [] Neurologic: Alert and oriented X 3, normal motor function, normal sensory function, no focal deficits noted. [] Psychologic: Patient is tearful screaming out loud. Current Patient Data Vital Signs Vital Signs Date Time Temp Pulse Resp B/P (MAP) Pulse Ox O2 Delivery O2 Flow Rate FiO2 10/20/19 13:13 20 100 Room Air 10/20/19 10:13 98.2 75 118/56 (76) 98.2 Lab Values Laboratory Tests Test 10/20/19 10:30 White Blood Count 17.9 x10^3/uL (4.0-11.0) H Red Blood Count 3.01 x10^6/uL (4.30-5.70) L Hemoglobin 9.1 g/dL (13.0-17.5) L Hematocrit 26.3 % (39.0-53.0) L Mean Corpuscular Volume 88 fL (79-100) Mean Corpuscular Hemoglobin 31 pg (25-35) Mean Corpuscular Hemoglobin Concent 35 g/dL (31-37) Red Cell Distribution Width 22.6 % (11.5-14.5) H Platelet Count 547 x10^3/uL (140-400) H Neutrophils (%) (Auto) 79 % (31-73) H Lymphocytes (%) (Auto) 14 % (24-48) L Monocytes (%) (Auto) 6 % (0-9) Eosinophils (%) (Auto) 0 % (0-3) Basophils (%) (Auto) 1 % (0-3) Neutrophils # (Auto) 14.1 x10^3/uL (1.8-7.7) H Lymphocytes # (Auto) 2.6 x10^3/uL (1.0-4.8) Monocytes # (Auto) 1.1 x10^3/uL (0.0-1.1) Eosinophils # (Auto) 0.0 x10^3/uL (0.0-0.7) Basophils # (Auto) 0.1 x10^3/uL (0.0-0.2) Segmented Neutrophils % 85 % (35-66) H Lymphocytes % 9 % (24-48) L Monocytes % 6 % (0-10) Platelet Estimate Increased (ADEQUATE) Giant Platelets Present Polychromasia Present Hypochromasia Present Poikilocytosis Present Microcytosis Present Macrocytosis Present Sickle Cells Present Target Cells Present Absolute Reticulocyte Count 0.154 x10^6/uL (0.020-0.120) Percent Reticulocyte Count 5.1 % (0.5-2.3) H Immature Reticulocyte Fraction 0.74 (0.20-0.60) H Sodium Level 140 mmol/L (136-145) Potassium Level 3.7 mmol/L (3.5-5.1) Chloride Level 102 mmol/L (98-107) Carbon Dioxide Level 26 mmol/L (21-32) Anion Gap 12 (6-14) Blood Urea Nitrogen 5 mg/dL (8-26) L Creatinine 0.6 mg/dL (0.7-1.3) L Estimated GFR (Cockcroft-Gault) 203.9 BUN/Creatinine Ratio 8 (6-20) Glucose Level 143 mg/dL (70-99) H Calcium Level 9.0 mg/dL (8.5-10.1) Total Bilirubin 1.1 mg/dL (0.2-1.0) H Aspartate Amino Transferase (AST) 37 U/L (15-37) Alanine Aminotransferase (ALT) 23 U/L (16-63) Alkaline Phosphatase 128 U/L (46-116) H Total Protein 7.5 g/dL (6.4-8.2) Albumin 3.8 g/dL (3.4-5.0) Albumin/Globulin Ratio 1.0 (1.0-1.7) Laboratory Tests 10/20/19 10:30 Laboratory Tests 10/20/19 10:30 EKG EKG [] Radiology/Procedures Radiology/Procedures []PROCEDURE: CHEST AP ONLY CHEST AP ONLY History: Back pain. Comparison: July 22, 2019 Findings: No consolidation or pleural effusion. Normal heart size. No pneumothorax. Impression: 1. No acute cardiopulmonary process. Electronically signed by: Nahum Reyna DO (10/20/2019 11:19 AM) [id number] DICTATED and SIGNED BY: NAHUM REYNA DO DATE: 10/20/19 1119 Course & Med Decision Making Course & Med Decision Making Pertinent Labs and Imaging studies reviewed. (See chart for details) This is a 24-year-old male patient with history of sickle cell presented to the ED today complaining of back pain and lower extremity for 2 days. Patient is well known to this ED for sickle cell disease. Unfortunately he just lost his sister a week ago who also had sickle cell. Patient arrives in the ED very tearful. CBC with a WBC of 17.5, hemoglobin 9.1, hematocrit 26.3. CMP-no acute findings. Absolute repeat account 0.154. Patient was given IV fluids, several doses of fentanyl. He has continued to cry and scream in the ED with his feet up in the air. PAT was consulted. They evaluated patient and discussed placed he can go for f/u. Spoke with Dr. Magaña who accepted patient for admission Routine consult placed for hematology Dragon Disclaimer Dragcaro Disclaimer This electronic medical record was generated, in whole or in part, using a voice recognition dictation system. Departure Departure Impression: Primary Impression: Sickle cell anemia with pain Additional Impression: Grief Disposition: 09 ADMITTED INPATIENT Condition: STABLE Referrals: UNKNOWN PCP NAME (PCP) Problem Qualifiers ROMY MEDEL APRN Oct 20, 2019 11:42
--- NOTE | 2019-10-20 12:18 | HP ---
ADMIT DATE: 10/20/2019 CHIEF COMPLAINT: Abdominal pain, sickle cell crisis. HISTORY OF PRESENT ILLNESS: The patient is a pleasant middle-aged male who has a sickle cell disease. We admit him quite frequently for sickle cell flare. Once again, he has severe pain rated at 10/10. He has associated weakness. It has been occurring for several days. He took home meds, but that did not seem to help. I discussed the case with ER physician. We are going to admit the patient with consultation to Hematology. PAST MEDICAL HISTORY: Sickle cell disease, avascular necrosis. ALLERGIES: None. FAMILY HISTORY: Diabetes and sickle cell disease. SOCIAL HISTORY: Does not drink, smoke or take drugs. His sister just of sickle cell disease. He is pretty depressed. MEDICATIONS: Reviewed, please refer to the MRAD. REVIEW OF SYSTEMS: REVIEW OF SYSTEMS: GENERAL: No history of weight change, weakness or fevers. SKIN: No bruising, hair changes or rashes. EYES: No blurred, double or loss of vision. NOSE AND THROAT: No history of nosebleeds, hoarseness or sore throat. HEART: No history of palpitations, chest pain or shortness of breath on exertion. LUNGS: Denies cough, hemoptysis, wheezing or shortness of breath. GASTROINTESTINAL: Denies changes in appetite, nausea, vomiting, diarrhea or constipation. GENITOURINARY: No history of frequency, urgency, hesitancy or nocturia. NEUROLOGIC: Denies history of numbness, tingling, tremor or weakness. PSYCHIATRIC: No history of panic, anxiety or depression. ENDOCRINE: No history of heat or cold intolerance, polyuria or polydipsia. EXTREMITIES: He complains of diffuse pain. PHYSICAL EXAMINATION: VITALS: Within normal limits and are stable. GENERAL: He is lying in bed with his legs straight up in the air. HEENT: Normal cephalic atraumatic, external auditory canals are patent EYES: Extraocular muscles are intact, pupils are equally round and reactive to light and accommodation MUSKULOSKELETAL: Well developed, well nourished, good range of motion ENDOCRINE: No thyromegaly was palpated LYMPHATICS: No cervical chain or axillary nodes were noted HEMATOPOIETIC: No bruising NECK: Supple, no JVD, no thyromegaly was noted. LUNGS: Clear to auscultation in all lung vargas without rhonchi or wheezing. HEART: RRR, S1, S2 present. Peripheral pulses intact, no obvious murmurs were noted. ABDOMEN: Soft, nontender. Positive bowel sounds no organomegaly, normal bowel sounds. EXTREMITIES: Without any cyanosis, clubbing, or edema. Pedal pulses intact, Homans sign is negative. NEUROLOGIC: He is crying. PSYCHIATRIC: Normal affect, normal mood. Stable. SKIN: No ulcerations or rashes, good skin turgor, no jaundice. VASCULAR: Good capillary refill, neurovascular bundle appears to be intact. LABORATORY DATA: Hemoglobin is 9.1. Electrolytes are normal. ASSESSMENT AND PLAN: Sickle cell crisis. The patient will be admitted. We will give IV fluids, multiple vitamins, p.r.n. hydroxyurea if Hematology agrees. We will consult Hematology. P.r.n. narcotics. Follow his retic count. O2 per nasal cannula. PROGNOSIS: Guarded. FELI YEUNG DO DR: JHONNY/oscar JOB#: [id number] / [id number]
[2019-10-20] MEDS ORDERED: ONDANSETRON PF 4 MG/2 ML VIAL. IV PRN (14:15)
[2019-10-20] MEDS ORDERED: ACETAMINOPHEN 325 MG TABLET. PO PRN (14:15)
[2019-10-20] MEDS ORDERED: fentaNYL PF VIAL 100 MCG/2 ML VIAL IVP ONE ×3 (14:15→19:00)
[2019-10-20] MEDS: FOLIC ACID 1 MG TABLET. PO SCH (18:00)
[2019-10-20] MEDS ORDERED: ENOXAPARIN 40 MG/0.4 ML SYRINGE. SQ SCH (18:00)
[2019-10-20] MEDS: fentaNYL PF VIAL 100 MCG/2 ML VIAL IVP PRN ×2 (18:21→21:08)
--- NOTE | 2019-10-20 18:27 | PDOC2 ---
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 whose mom of sickle cell and his 26-year-old sister just of sickle cell and will be buried tomorrow and he came in with acute crisis due to pain, he is very concerned regarding his own mortality now that his mom and sister have and would really like to get his sister's in the morning, he has had 28 ED visits in 2019 here, he is followed by [facility], he tells me he goes there frequently as well, typically to their day clinic, typically he gets fentanyl 100 g and about 30 minutes later and then about 90 minutes later and usually that does the trick and keeps him from being admitted, he lives with his girlfriend and has 3 small children, he tells me they have sickle cell as well, I don't have a hemoglobin electrophoresis available at the moment for confirmation but we can check one. Regarding his pain, it is severe, acute, worsening due to sickle cell, better with fentanyl, but still significantly affecting him and he has fentanyl 100mcg ordered for right at the moment per his nurse. PAST MEDICAL HISTORY: SS anemia, tells me he's had acute chest many times (??), he is not sure how many, denies however use of transfusions or exchange transfusion, denies history of stroke or blood clots and tells me he's on Hydrea 3 tabs a day AVN of the right hip Depression SURGERIES: Denies any surgeries ALL: No known drug allergies MEDS: see attached list FAMILY HISTORY: Mom and sister of sickle cell SOCIAL HISTORY: Lives with his girlfriend, 3 small children, his dad is in [place] REVIEW OF SYSTEMS: A 10-point review of system was positive for pain, in legs and back and neck, no CP or SOA, no hypoxia, no fever, and otherwise rest of the 10 pt system review is negative. PHYSICAL EXAMINATION: GENERAL APPEARANCE: WD, in pain, thin VITAL SIGNS: vitals reviewed HEAD: Atraumatic, normocephalic. NECK: Supple. nl ROM. no LAD. CHEST: Bilaterally symmetrical, on RA w/o resp distress. ABDOMEN: Soft, nontender. nondist. CENTRAL NERVOUS SYSTEM: No focal deficits. A&Ox3 SKIN: No rashes or obvious lesions. EXT: no c/c/e PSYCHOLOGIC: pleasant mood and scared affect LABS: White count 17.9, hemoglobin 9.1, platelets 547, MCV of 88, reticular 5%, T bili 1.1, creatinine 0.6 RADS: Chest x-ray shows no acute cardiopulmonary disease Case discussed w/ pt, records reviewed in [employer] and [employer], including labs and radiology, please see note for summary details. A/P: 24-year-old man with frequent ED visits and sickle cell and in for acute pain crisis Pain crisis: He is on IV fluids, will take the liberty to give fentanyl 100 g every 30 minutes 2 followed by Q 90 minutes per his request to hopefully get him out for the of his sister tomorrow, can also use Motrin and Tylenol when necessary, he also has Zofran ordered as well, appreciate nursing assistance in getting his pain meds. no need to follow daily Retic, however we'l l check hemoglobin electropheresis with next lab draw and add folic acid and his Hydrea 1500 mg daily Prophylaxis: Lovenox 40 mg daily Disposition: After continued improvement, he can continue follow-up with [facility] however I will send a referral to that transplant team at to see if he's potentially a transplant candidate which can be curative and is part of SOC now Thank you kindly for this consultation and please do not hesitate to call with any further questions. Current Problem List Problem List Problems Medical Problems: (1) Grief Status: Acute (2) Sickle cell anemia with pain Status: Acute Current Medications Current Medications Current Medications Sodium Chloride 1,000 ml @ 1,000 mls/hr 1X ONCE IV Last administered on 10/20/19at 10:32; Start 10/20/19 at 10:15; Stop 10/20/19 at 11:14; Status DC Fentanyl Citrate (Fentanyl 2ml Vial) 50 mcg PRN Q15MIN PRN IV PAIN GREATER THAN 3/10 Last administered on 10/20/19at 13:13; Start 10/20/19 at 10:15; Stop 10/21/19 at 10:14 Ondansetron HCl (Zofran) 4 mg 1X ONCE IVP Last administered on 10/20/19at 10:32; Start 10/20/19 at 10:15; Stop 10/20/19 at 10:18; Status DC Lorazepam (Ativan Inj) 1 mg 1X ONCE IVP Last administered on 10/20/19at 11:24; Start 10/20/19 at 11:15; Stop 10/20/19 at 11:16; Status DC Fentanyl Citrate (Fentanyl 2ml Vial) 100 mcg 1X ONCE IVP Last administered on 10/20/19at 14:27; Start 10/20/19 at 14:15; Stop 10/20/19 at 14:19; Status DC Ondansetron HCl (Zofran) 4 mg PRN Q8HRS PRN IV NAUSEA/VOMITING; Start 10/20/19 at 14:15; Stop 10/21/19 at 14:14 Fentanyl Citrate (Fentanyl 2ml Vial) 50 mcg PRN Q1HR PRN IV PAIN Last administered on 10/20/19at 16:17; Start 10/20/19 at 14:15; Stop 10/21/19 at 14:14 Acetaminophen (Tylenol) 650 mg PRN Q4HRS PRN PO FEVER; Start 10/20/19 at 14:15; Stop 10/21/19 at 14:14 Sodium Chloride 1,000 ml @ 100 mls/hr 1X ONCE IV Last administered on 10/20/19at 14:26; Start 10/20/19 at 14:15; Stop 10/21/19 at 00:14 Folic Acid (Folic Acid) 1 mg DAILY PO ; Start 10/20/19 at 18:00 Enoxaparin Sodium (Lovenox 40mg Syringe) 40 mg QHS SQ ; Start 10/20/19 at 18:00 Fentanyl Citrate (Fentanyl 2ml Vial) 100 mcg PRN Q2HRS PRN IVP PAIN; Start 10/20/19 at 18:00 Lorazepam (Ativan Inj) 1 mg PRN Q4HRS PRN IVP ANXIETY / AGITATION; Start 10/20/19 at 18:00 Active Scripts Active Roxicodone (Oxycodone Hcl) 15 Mg Tablet 1 Tab PO Q6HRS PRN MDD 4 Tablet(s) Zofran (Ondansetron Hcl) 4 Mg Tablet 1 Tab PO Q6HRS PRN 4 Days Kyle 5-325 Tablet (Acetaminophen/Hydrocodone Bitart) 1 Each Tablet 1-2 Tab PO Q4-6HRS 3 Days Percocet 7.5-325 Mg Tablet (Oxycodone/Acetaminophen) 1 Each Tablet 1 Tab PO QIDPRN PRN MDD 4 Tablet(s) Kyle 5-325 Tablet (Acetaminophen/Hydrocodone Bitart) 1 Each Tablet 1 Each PO PRN Q6HRS PRN as needed for pain Kyle 5-325 Tablet (Acetaminophen/Hydrocodone Bitart) 1 Each Tablet 1 Tab PO PRN Q6HRS PRN Oxycodone Hcl Immed.release (Oxycodone Hcl) 10 Mg Tablet 10 Mg PO PRN Q6HRS PRN 4 Days Oxycontin (Oxycodone HCl) 20 Mg Tab.er.12h 20 Mg PO BID 4 Days Lidocaine-Prilocaine Cream (Lidocaine/Prilocaine) 30 Gm Cream..g. 30 Gm TP Q8HRS PRN Kyle 5-325 Tablet (Acetaminophen/Hydrocodone Bitart) 1 Each Tablet 1-2 Each PO PRN Q6HRS PRN as needed for pain Percocet 5-325 Mg Tablet (Oxycodone/Acetaminophen) 1 Each Tablet 1-2 Tab PO Q4-6HRS PRN Oxycodone Hcl Immed.release (Oxycodone Hcl) 15 Mg Tablet 1 Tab PO PRN Q6-8HRS PRN Allergies Allergies: Coded Allergies: No Known Drug Allergies (Unverified , 11/06/17) Vitals VITALS Vital Signs Date Time Temp Pulse Resp B/P (MAP) Pulse Ox O2 Delivery O2 Flow Rate FiO2 10/20/19 16:17 22 98 Room Air 10/20/19 14:15 89 10/20/19 10:13 98.2 118/56 (76) 98.2 Labs Labs Laboratory Tests Test 10/20/19 10:30 White Blood Count 17.9 x10^3/uL (4.0-11.0) Red Blood Count 3.01 x10^6/uL (4.30-5.70) Hemoglobin 9.1 g/dL (13.0-17.5) Hematocrit 26.3 % (39.0-53.0) Mean Corpuscular Volume 88 fL (79-100) Mean Corpuscular Hemoglobin 31 pg (25-35) Mean Corpuscular Hemoglobin Concent 35 g/dL (31-37) Red Cell Distribution Width 22.6 % (11.5-14.5) Platelet Count 547 x10^3/uL (140-400) Neutrophils (%) (Auto) 79 % (31-73) Lymphocytes (%) (Auto) 14 % (24-48) Monocytes (%) (Auto) 6 % (0-9) Eosinophils (%) (Auto) 0 % (0-3) Basophils (%) (Auto) 1 % (0-3) Neutrophils # (Auto) 14.1 x10^3/uL (1.8-7.7) Lymphocytes # (Auto) 2.6 x10^3/uL (1.0-4.8) Monocytes # (Auto) 1.1 x10^3/uL (0.0-1.1) Eosinophils # (Auto) 0.0 x10^3/uL (0.0-0.7) Basophils # (Auto) 0.1 x10^3/uL (0.0-0.2) Segmented Neutrophils % 85 % (35-66) Lymphocytes % 9 % (24-48) Monocytes % 6 % (0-10) Platelet Estimate Increased (ADEQUATE) Giant Platelets Present Polychromasia Present Hypochromasia Present Poikilocytosis Present Microcytosis Present Macrocytosis Present Sickle Cells Present Target Cells Present Absolute Reticulocyte Count 0.154 x10^6/uL (0.020-0.120) Percent Reticulocyte Count 5.1 % (0.5-2.3) Immature Reticulocyte Fraction 0.74 (0.20-0.60) Sodium Level 140 mmol/L (136-145) Potassium Level 3.7 mmol/L (3.5-5.1) Chloride Level 102 mmol/L (98-107) Carbon Dioxide Level 26 mmol/L (21-32) Anion Gap 12 (6-14) Blood Urea Nitrogen 5 mg/dL (8-26) Creatinine 0.6 mg/dL (0.7-1.3) Estimated GFR (Cockcroft-Gault) 203.9 BUN/Creatinine Ratio 8 (6-20) Glucose Level 143 mg/dL (70-99) Calcium Level 9.0 mg/dL (8.5-10.1) Total Bilirubin 1.1 mg/dL (0.2-1.0) Aspartate Amino Transf (AST/SGOT) 37 U/L (15-37) Alanine Aminotransferase (ALT/SGPT) 23 U/L (16-63) Alkaline Phosphatase 128 U/L (46-116) Total Protein 7.5 g/dL (6.4-8.2) Albumin 3.8 g/dL (3.4-5.0) Albumin/Globulin Ratio 1.0 (1.0-1.7) Laboratory Tests Test 10/20/19 10:30 White Blood Count 17.9 x10^3/uL (4.0-11.0) Red Blood Count 3.01 x10^6/uL (4.30-5.70) Hemoglobin 9.1 g/dL (13.0-17.5) Hematocrit 26.3 % (39.0-53.0) Mean Corpuscular Volume 88 fL (79-100) Mean Corpuscular Hemoglobin 31 pg (25-35) Mean Corpuscular Hemoglobin Concent 35 g/dL (31-37) Red Cell Distribution Width 22.6 % (11.5-14.5) Platelet Count 547 x10^3/uL (140-400) Neutrophils (%) (Auto) 79 % (31-73) Lymphocytes (%) (Auto) 14 % (24-48) Monocytes (%) (Auto) 6 % (0-9) Eosinophils (%) (Auto) 0 % (0-3) Basophils (%) (Auto) 1 % (0-3) Neutrophils # (Auto) 14.1 x10^3/uL (1.8-7.7) Lymphocytes # (Auto) 2.6 x10^3/uL (1.0-4.8) Monocytes # (Auto) 1.1 x10^3/uL (0.0-1.1) Eosinophils # (Auto) 0.0 x10^3/uL (0.0-0.7) Basophils # (Auto) 0.1 x10^3/uL (0.0-0.2) Segmented Neutrophils % 85 % (35-66) Lymphocytes % 9 % (24-48) Monocytes % 6 % (0-10) Platelet Estimate Increased (ADEQUATE) Giant Platelets Present Polychromasia Present Hypochromasia Present Poikilocytosis Present Microcytosis Present Macrocytosis Present Sickle Cells Present Target Cells Present Absolute Reticulocyte Count 0.154 x10^6/uL (0.020-0.120) Percent Reticulocyte Count 5.1 % (0.5-2.3) Immature Reticulocyte Fraction 0.74 (0.20-0.60) Sodium Level 140 mmol/L (136-145) Potassium Level 3.7 mmol/L (3.5-5.1) Chloride Level 102 mmol/L (98-107) Carbon Dioxide Level 26 mmol/L (21-32) Anion Gap 12 (6-14) Blood Urea Nitrogen 5 mg/dL (8-26) Creatinine 0.6 mg/dL (0.7-1.3) Estimated GFR (Cockcroft-Gault) 203.9 BUN/Creatinine Ratio 8 (6-20) Glucose Level 143 mg/dL (70-99) Calcium Level 9.0 mg/dL (8.5-10.1) Total Bilirubin 1.1 mg/dL (0.2-1.0) Aspartate Amino Transf (AST/SGOT) 37 U/L (15-37) Alanine Aminotransferase (ALT/SGPT) 23 U/L (16-63) Alkaline Phosphatase 128 U/L (46-116) Total Protein 7.5 g/dL (6.4-8.2) Albumin 3.8 g/dL (3.4-5.0) Albumin/Globulin Ratio 1.0 (1.0-1.7) BRYANT HURTADO MD Oct 20, 2019 18:27
--- NOTE | 2019-10-20 18:28 | NUR ---
Folic acid: pt stated he took his folic acid this am, states if he takes it in the evening it will make him sick.
[2019-10-20] MEDS ORDERED: IBUPROFEN 200 MG TABLET. PO PRN (18:30)
[2019-10-20 19:00] VITALS: BP 123/58
[2019-10-20] MEDS ORDERED: IV NORMAL SALINE 1000ML BAG 1,000 ML IV SCH (20:45)
[2019-10-20 23:00] VITALS: BP 116/71
[2019-10-21] MEDS: fentaNYL PF VIAL 100 MCG/2 ML VIAL IV PRN ×5 (00:53→08:13)
[2019-10-21 03:00] VITALS: BP 120/70
[2019-10-21] MEDS: fentaNYL PF VIAL 100 MCG/2 ML VIAL IVP PRN ×2 (06:29→09:50)
[2019-10-21 07:00] VITALS: BP 125/71
[2019-10-21] MEDS ORDERED: HYDROXYUREA 500 MG CAPSULE PO SCH (09:00)
[2019-10-21] MEDS: FOLIC ACID 1 MG TABLET. PO SCH (09:18)
[2019-10-21 11:00] VITALS: BP 127/78
[2019-10-21] MEDS ORDERED: OXYC20TA34 PO (11:29)
--- NOTE | 2019-10-21 12:25 | NUR ---
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
--- NOTE | 2019-10-21 13:26 | PDOC ---
[employer] PROGRESS NOTE Chief Complaint Chief Complaint Sickle Cell Pain Crisis History of Present Illness History of Present Illness 10/21/2019 -Pt seen and examined. -Chart reviewed and care discussed with nursing staff. -Pt laying in bed, appearing uncomfortable. He appears distressed and tearful. He tells me that he wants to leave now so he can attend his sisters today at 11:30. He continues to rate his pain 8/10 even with IV narcotics. Vitals/I&O Vitals/I&O: Vital Signs Date Time Temp Pulse Resp B/P (MAP) Pulse Ox O2 Delivery O2 Flow Rate FiO2 10/21/19 11:00 99.2 86 16 127/78 (94) 95 Room Air 99.2 I & O 10/20/19 10/20/19 10/21/19 15:00 23:00 07:00 Intake Total 1000 ml 0 ml Output Total 1250 ml 750 ml Balance 1000 ml -1250 ml -750 ml Physical Exam General: Alert, Oriented X3, moderate distress Heart: Regular rate, No murmurs Lungs: Clear Abdomen: Normal bowel sounds, Soft Extremities: No clubbing, No cyanosis Skin: No rashes Review of Systems Review of Systems: Denies Chest pain or SOA Assessment and Plan Assessmemt and Plan Problems Medical Problems: (1) Grief Status: Acute (2) Sickle cell anemia with pain Status: Acute ASSESSMENT: Sickle Cell Pain Crisis PLAN: -Hematology following -IVF support, vitamins, and hydroxyurea -O2 via NC -P.r.n. narcotics. -Trend labs, following retic count -PT/OT -DVT ppx -Full Code -Discharge to home today Comment Review of Relevant I have reviewed the following items misty (where applicable) has been applied. Medications: Current Medications Medications (Trade) Dose Ordered Sig/Glenis Route PRN Reason Start Time Stop Time Status Last Admin Dose Admin Fentanyl Citrate (Fentanyl 2ml Vial) 100 mcg 1X ONCE IVP 10/20/19 14:15 10/20/19 14:19 DC 10/20/19 14:27 Fentanyl Citrate (Fentanyl 2ml Vial) 50 mcg PRN Q1HR PRN IV PAIN 10/20/19 14:15 10/21/19 13:03 DC 10/21/19 04:18 Sodium Chloride 1,000 ml @ 100 mls/hr 1X ONCE IV 10/20/19 14:15 10/21/19 00:14 DC 10/20/19 14:26 Folic Acid (Folic Acid) 1 mg DAILY PO 10/20/19 18:00 10/21/19 13:03 DC 10/21/19 09:18 Fentanyl Citrate (Fentanyl 2ml Vial) 100 mcg PRN Q2HRS PRN IVP PAIN 10/20/19 18:00 10/21/19 13:03 DC 10/21/19 09:50 Lorazepam (Ativan Inj) 1 mg PRN Q4HRS PRN IVP ANXIETY / AGITATION 10/20/19 18:00 10/21/19 13:03 DC 10/21/19 02:53 Hydroxyurea (Hydrea) 1,500 mg DAILY PO 10/21/19 09:00 10/21/19 13:03 DC 10/21/19 09:20 Fentanyl Citrate (Fentanyl 2ml Vial) 100 mcg PRN Q1HR ONCE IVP 10/20/19 19:00 10/20/19 19:08 DC 10/20/19 19:49 Sodium Chloride 1,000 ml @ 100 mls/hr Q10H IV 10/20/19 20:45 10/21/19 13:03 DC 10/21/19 00:34 FELI YEUNG K III DO Oct 21, 2019 13:26
--- NOTE | 2019-10-23 12:54 | DS ---
DATE OF DISCHARGE: 10/21/2019 ADMISSION DIAGNOSIS: Sickle cell disease with acute flare. DISCHARGE DIAGNOSIS: Resolving sickle cell. HOSPITAL COURSE: The patient is a pleasant 24-year-old male who presented with acute flare of sickle cell disease. We admitted the patient, gave him oxygen, fluids, pain meds, vitamins. Consulted Hematology/Oncology. Over the next couple of days, he will return to his baseline. We discharged to home with close outpatient followup. DISPOSITION: Home. ACTIVITY: As tolerated. DIET: Low sodium. MEDICATIONS: Please see MRAD. TOTAL TIME: 31 minutes. REGISL Noris YEUNG DO DR: JHONNY/oscar JOB#: [id number] / [id number]
== END 2019-10-21 12:30 | disposition home or self-care (01) | DRG 812 ==
LOC: ER 09:57 → ED HOLD 13:17 → 5 SOUTH 14:45
PROVIDERS: ADMIT Internal Medicine; ATTEND Internal Medicine
DX: D57.00 Hb-SS disease with crisis, unspecified (principal); F12.90 Cannabis use, unspecified, uncomplicated; F32.9 Major depressive disorder, single episode, unspecified; Z83.2 Family history of diseases of the blood and blood-forming organs and certain disorders involving the immune mechanism; Z83.3 Family history of diabetes mellitus; Z87.891 Personal history of nicotine dependence
CPT/HCPCS: 36415; 71045; 80053; 83020; 85007; 85025; 85045; 96374; 96375; 96376; 99285; J2060; J2405; J3010; J7030; G0378

== ENCOUNTER 2019-11-27 00:06 | Emergency (ER) | payer BC ==
[~2019-11-27] VITALS: Ht 175.3 cm; Wt 72.0 kg
[2019-11-27 00:42] LABS: BASO # 0.1 x10^3/uL (0.0-0.2); BASO % 1 % (0-3); EOS # 0.1 x10^3/uL (0.0-0.7); EOS % 0 % (0-3); HEMATOCRIT 30.1 % (39.0-53.0); HEMOGLOBIN 10.4 g/dL (13.0-17.5); LYMPH % 18 % (24-48); MEAN CORPUSCULAR HEMOGLOBIN 30 pg (25-35); MEAN CORPUSCULAR HGB CONC 35 g/dL (31-37); MEAN CORPUSCULAR VOLUME 86 fL (79-100); MONO # 1.9 x10^3/uL (0.0-1.1); MONO % 11 % (0-9); NEUT # 11.6 x10^3/uL (1.8-7.7); NEUT % 70 % (31-73); PLATELET COUNT 299 x10^3/uL (140-400); RED BLOOD COUNT 3.51 x10^6/uL (4.30-5.70); RED CELL DISTRIBUTION WIDTH 22.4 % (11.5-14.5); WHITE BLOOD COUNT 16.7 x10^3/uL (4.0-11.0)
[2019-11-27] MEDS ORDERED: HYDROmorphone 2 MG/ML VIAL IVP ONE ×2 (00:45→01:30)
[2019-11-27] MEDS ORDERED: ONDANSETRON PF 4 MG/2 ML VIAL. IV ONE (00:45)
[2019-11-27 00:55] LABS: CALCIUM 9.6 mg/dL (8.5-10.1); CREATININE 0.6 mg/dL (0.7-1.3); GFR 203.9; POTASSIUM 3.7 mmol/L (3.5-5.1)
[2019-11-27 01:01] LABS: ALBUMIN 4.4 g/dL (3.4-5.0); ALBUMIN/GLOBULIN RATIO 1.1 (1.0-1.7); TOTAL BILIRUBIN 3.1 mg/dL (0.2-1.0); TOTAL PROTEIN 8.3 g/dL (6.4-8.2)
[2019-11-27 01:12] LABS: % ATYL 4 % (0-0); % BANDS 1 % (0-9); % EOS 1 % (0-5); % LYMPHS 25 % (24-48); % MONOS 10 % (0-10); % SEGS 59 % (35-66); NUCLEATED RBC 7; PLT ESTIMATE ADEQUATE (ADEQUATE)
[2019-11-27 01:13] LABS: ANISOCYTOSIS MOD; POLYCHROMASIA SLIGHT; SICKLE CELLS MOD; TARGET CELLS OCC
[2019-11-27 01:14] LABS: SCHISTOCYTES OCC; TOXIC VACUOLATION SLIGHT
--- NOTE | 2019-11-27 01:31 | PHYS DOC ---
Past Medical History Past Medical History: Sickle Cell Disease Additional Past Medical Histor: AVASCULAR NECROSIS OF R HIP Past Surgical History: No Surgical History Additional Past Surgical Histo: L HIP BONE GRAFT Smoking Status: Current Some Day Smoker Alcohol Use: None Drug Use: Marijuana Adult General Chief Complaint Chief Complaint: BACK PAIN OR INJURY HPI HPI 24-year-old male with a history of sickle cell disease who is been admitted several times she was also been seen in the emergency department more than 20 times in the year 2019 presents with severe bilateral leg pain upper and lower back pain. He states is very typical of his previous sickle cell bouts. He has not had any fever chills or sweats. He denies any chest pain.[] Review of Systems Review of Systems Constitutional: Denies fever or chills [] Eyes: Denies change in visual acuity, redness, or eye pain [] HENT: Denies nasal congestion or sore throat [] Respiratory: Denies cough or shortness of breath [] Cardiovascular: No additional information not addressed in HPI [] GI: Denies abdominal pain, nausea, vomiting, bloody stools or diarrhea [] : Denies dysuria or hematuria [] Musculoskeletal: Per history of present illness[] Integument: Denies rash or skin lesions [] Neurologic: Denies headache, focal weakness or sensory changes [] Endocrine: Denies polyuria or polydipsia [] All other systems were reviewed and found to be within normal limits, except as documented in this note. Current Medications Current Medications Current Medications Medications (Trade) Dose Ordered Sig/Glenis Start Time Stop Time Status Last Admin Dose Admin Hydromorphone HCl (Dilaudid) 1 mg 1X ONCE 11/27/19 01:30 11/27/19 01:54 DC 11/27/19 01:35 1 MG Lorazepam (Ativan Inj) 1 mg 1X ONCE 11/27/19 02:00 11/27/19 02:01 DC 11/27/19 02:05 1 MG Ondansetron HCl (Zofran) 4 mg 1X ONCE 11/27/19 00:45 11/27/19 00:46 DC 11/27/19 00:38 4 MG Allergies Allergies Allergies Coded Allergies Type Severity Reaction Last Updated Verified No Known Drug Allergies 11/06/17 No Physical Exam Physical Exam Constitutional: Well developed, well nourished, moderate to severe distress, non-toxic appearance. [] HENT: Normocephalic, atraumatic, bilateral external ears normal, oropharynx moist, no oral exudates, nose normal. [] Eyes: PERRLA, EOMI, conjunctiva normal, no discharge. [] Neck: Normal range of motion, no tenderness, supple, no stridor. [] Cardiovascular:Heart rate regular rhythm, no murmur [] Lungs & Thorax: Bilateral breath sounds clear to auscultation [] Abdomen: Bowel sounds normal, soft, no tenderness, no masses, no pulsatile masses. [] Skin: Warm, dry, no erythema, no rash. [] Back: No tenderness, no CVA tenderness. [] Extremities: No tenderness, no cyanosis, no clubbing, ROM intact, no edema. [] Neurologic: Alert and oriented X 3, normal motor function, normal sensory function, no focal deficits noted. [] Psychologic: Crying hysterically with his legs straight up in the air. [] Current Patient Data Vital Signs Vital Signs Date Time Temp Pulse Resp B/P (MAP) Pulse Ox O2 Delivery O2 Flow Rate FiO2 11/27/19 02:07 81 20 147/65 (92) 94 Room Air 11/27/19 00:12 99.0 99.0 Lab Values Laboratory Tests Test 11/27/19 00:25 White Blood Count 16.7 x10^3/uL (4.0-11.0) H Red Blood Count 3.44 x10^6/uL (4.30-5.70) L Hemoglobin 10.4 g/dL (13.0-17.5) L Hematocrit 30.1 % (39.0-53.0) L Mean Corpuscular Volume 86 fL (79-100) Mean Corpuscular Hemoglobin 30 pg (25-35) Mean Corpuscular Hemoglobin Concent 35 g/dL (31-37) Red Cell Distribution Width 22.4 % (11.5-14.5) H Platelet Count 299 x10^3/uL (140-400) Neutrophils (%) (Auto) 70 % (31-73) Lymphocytes (%) (Auto) 18 % (24-48) L Monocytes (%) (Auto) 11 % (0-9) H Eosinophils (%) (Auto) 0 % (0-3) Basophils (%) (Auto) 1 % (0-3) Neutrophils # (Auto) 11.6 x10^3/uL (1.8-7.7) H Lymphocytes # (Auto) 3.0 x10^3/uL (1.0-4.8) Monocytes # (Auto) 1.9 x10^3/uL (0.0-1.1) H Eosinophils # (Auto) 0.1 x10^3/uL (0.0-0.7) Basophils # (Auto) 0.1 x10^3/uL (0.0-0.2) Segmented Neutrophils % 59 % (35-66) Band Neutrophils % 1 % (0-9) Lymphocytes % 25 % (24-48) Atypical Lymphocytes % (Manual) 4 % (0-0) H Monocytes % 10 % (0-10) Eosinophils % 1 % (0-5) Nucleated Red Blood Cells 7 Toxic Vacuolation Slight Platelet Estimate Adequate (ADEQUATE) Large Platelets Occ Polychromasia Slight Anisocytosis Mod Sickle Cells Mod Target Cells Occ Schistocytes Occ Absolute Reticulocyte Count 0.142 x10^6/uL (0.020-0.120) Percent Reticulocyte Count 4.1 % (0.5-2.3) H Immature Reticulocyte Fraction 0.68 (0.20-0.60) H Sodium Level 136 mmol/L (136-145) Potassium Level 3.7 mmol/L (3.5-5.1) Chloride Level 97 mmol/L (98-107) L Carbon Dioxide Level 26 mmol/L (21-32) Anion Gap 13 (6-14) Blood Urea Nitrogen 10 mg/dL (8-26) Creatinine 0.6 mg/dL (0.7-1.3) L Estimated GFR (Cockcroft-Gault) 203.9 BUN/Creatinine Ratio 17 (6-20) Glucose Level 114 mg/dL (70-99) H Calcium Level 9.6 mg/dL (8.5-10.1) Magnesium Level 2.0 mg/dL (1.8-2.4) Total Bilirubin 3.1 mg/dL (0.2-1.0) H Aspartate Amino Transferase (AST) 66 U/L (15-37) H Alanine Aminotransferase (ALT) 29 U/L (16-63) Alkaline Phosphatase 129 U/L (46-116) H Total Protein 8.3 g/dL (6.4-8.2) H Albumin 4.4 g/dL (3.4-5.0) Albumin/Globulin Ratio 1.1 (1.0-1.7) Laboratory Tests 11/27/19 00:25 Laboratory Tests 11/27/19 00:25 EKG EKG [] Radiology/Procedures Radiology/Procedures [] Course & Med Decision Making Course & Med Decision Making Pertinent Labs and Imaging studies reviewed. (See chart for details) CRITICAL CARE: Time spent was 35 minutes. This includes medical management, evaluation, reevaluation, discussion with consultants and family. Critical Care does NOT include time spent on separately billed procedures. ED course: Evaluation reveals a 24-year-old male who is very uncomfortable with pain in his legs and low and upper back. He was given a total of 2 mg of Dilaudid 1 mg of Ativan with some relief of his symptoms. I believe at this point he is comfortable enough to go home. ] Dragon Disclaimer Dragon Disclaimer This electronic medical record was generated, in whole or in part, using a voice recognition dictation system. Departure Departure Impression: Primary Impression: Sickle cell pain crisis Disposition: HOME, SELF-CARE Condition: IMPROVED Referrals: UNKNOWN PCP NAME (PCP) Patient Instructions: Sickle Cell Pain Crisis Additional Instructions: Return to the emergency department with any new or concerning symptoms WILLIAM CASTRO DO Nov 27, 2019 01:30
[2019-11-27 02:07] VITALS: BP 147/65
== END 2019-11-27 02:38 | disposition home or self-care (01) ==
LOC: ER 00:06
DX: D57.00 Hb-SS disease with crisis, unspecified (principal); M79.604 Pain in right leg; M79.605 Pain in left leg; M54.5 Low back pain; F17.200 Nicotine dependence, unspecified, uncomplicated; F12.90 Cannabis use, unspecified, uncomplicated; Z98.890 Other specified postprocedural states
CPT/HCPCS: 36415; 80053; 83735; 85007; 85025; 85045; 96374; 96375; 96376; 99284; J1170; J2060; J2405

== ENCOUNTER 2019-12-01 04:09 | Emergency (ER) | payer BC ==
[~2019-12-01] VITALS: Ht 175.3 cm; Wt 72.7 kg
--- NOTE | 2019-12-01 05:05 | PHYS DOC ---
Past Medical History Past Medical History: Sickle Cell Disease Additional Past Medical Histor: AVASCULAR NECROSIS OF R HIP Past Surgical History: No Surgical History Additional Past Surgical Histo: L HIP BONE GRAFT Smoking Status: Current Some Day Smoker Alcohol Use: None Drug Use: Marijuana General Adult EDM: Chief Complaint: Sickel Cell HPI: HPI: Patient is a 24 year old -[place] male who presents secondary to complaint of sickle cell pain. Patient reports pain all over but no chest pain or shortness of breath. He has been in and out of the hospital/ER recently; our emergency department on the sixth and treatment a day later. He has home meds but states that his pain is out of control today so he is here for pain relief. Review of Systems: Review of Systems: All other systems negative except as documented in HPI. Heart Score: Risk Factors: Risk Factors: DM, Current or recent (<one month) smoker, HTN, HLP, family history of CAD, obesity. Risk Scores: Score 0 - 3: 2.5% MACE over next 6 weeks - Discharge Home Score 4 - 6: 20.3% MACE over next 6 weeks - Admit for Clinical Observation Score 7 - 10: 72.7% MACE over next 6 weeks - Early Invasive Strategies Allergies: Allergies: Allergies Coded Allergies Type Severity Reaction Last Updated Verified No Known Drug Allergies 11/06/17 No Physical Exam: PE: Constitutional: Well developed, well nourished, no acute distress, non-toxic appearance. [] HENT: Normocephalic, atraumatic, bilateral external ears normal, oropharynx moist, no oral exudates, nose normal. [] Eyes: PERRLA, EOMI, conjunctiva normal, no discharge. [] Neck: Normal range of motion, no tenderness, supple, no stridor. [] Cardiovascular:Heart rate regular rhythm, no murmur [] Lungs & Thorax: Bilateral breath sounds clear to auscultation [] Abdomen: Bowel sounds normal, soft, no tenderness, no masses, no pulsatile masses. [] Skin: Warm, dry, no erythema, no rash. [] Back: No tenderness, no CVA tenderness. [] Extremities: Tenderness throughout, no cyanosis, no clubbing, ROM intact, no edema. [] Neurologic: Alert and oriented X 3, normal motor function, normal sensory function, no focal deficits noted. [] Psychologic: Affect normal, judgement normal, mood normal. [] Current Patient Data: Vital Signs: Vital Signs Date Time Temp Pulse Resp B/P (MAP) Pulse Ox O2 Delivery O2 Flow Rate FiO2 12/01/19 04:30 98.6 90 18 133/68 (89) 98 Room Air 98.6 EKG: EKG: [] Radiology/Procedures: Radiology/Procedures: [] Course & Med Decision Making: Course & Med Decision Making Patient seen for sickle cell. Will give IV fluids pain medication and check basic labs. Patient's labs are stable. Will finish IV fluids and give an additional dose of fentanyl and discharge home. He is feeling better at this time and is stable for discharge. Dragon Disclaimer: Gifts that Give Disclaimer: This electronic medical record was generated, in whole or in part, using a voice recognition dictation system. Departure Departure Impression: Primary Impression: Sickle cell pain crisis Disposition: 01 HOME, SELF-CARE Condition: IMPROVED Referrals: UNKNOWN PCP NAME (PCP) Patient Instructions: Sickle Cell Pain Crisis ALOK CARRENO DO Dec 01, 2019 05:05
[2019-12-01] MEDS ORDERED: IV NORMAL SALINE 1000ML BAG 1,000 ML IV ONE (05:30)
[2019-12-01] MEDS ORDERED: fentaNYL PF VIAL 100 MCG/2 ML VIAL IVP ONE ×2 (05:30→06:00)
[2019-12-01 05:32] LABS: BASO # 0.1 x10^3/uL (0.0-0.2); BASO % 1 % (0-3); EOS # 0.1 x10^3/uL (0.0-0.7); EOS % 1 % (0-3); HEMATOCRIT 24.6 % (39.0-53.0); HEMOGLOBIN 8.8 g/dL (13.0-17.5); LYMPH % 12 % (24-48); MEAN CORPUSCULAR HEMOGLOBIN 31 pg (25-35); MEAN CORPUSCULAR HGB CONC 36 g/dL (31-37); MEAN CORPUSCULAR VOLUME 85 fL (79-100); MONO # 1.1 x10^3/uL (0.0-1.1); MONO % 13 % (0-9); NEUT # 6.1 x10^3/uL (1.8-7.7); NEUT % 72 % (31-73); PLATELET COUNT 278 x10^3/uL (140-400); RED BLOOD COUNT 2.88 x10^6/uL (4.30-5.70); RED CELL DISTRIBUTION WIDTH 23.1 % (11.5-14.5); WHITE BLOOD COUNT 8.5 x10^3/uL (4.0-11.0)
[2019-12-01 05:42] LABS: CALCIUM 8.8 mg/dL (8.5-10.1); CREATININE 0.5 mg/dL (0.7-1.3); GFR 251.6; POTASSIUM 3.4 mmol/L (3.5-5.1)
[2019-12-01 06:13] VITALS: BP 107/64
[2019-12-01 07:13] LABS: % BASOS 3 % (0-3); % EOS 1 % (0-5); % MONOS 6 % (0-10); % SEGS 43 % (35-66); NUCLEATED RBC 5
[2019-12-01 07:14] LABS: ANISOCYTOSIS MOD; PLT ESTIMATE ADEQUATE (ADEQUATE); POIKILOCYTOSIS MOD; POLYCHROMASIA SLIGHT
[2019-12-01 07:15] LABS: OVALOCYTES OCC; SICKLE CELLS FEW; TARGET CELLS OCC; TEAR DROP CELLS OCC
[2019-12-01 07:18] LABS: MICROCYTOSIS PRESENT
[2019-12-01 07:19] LABS: HYPOCHROMIA PRESENT; SCHISTOCYTES FEW
[2019-12-01 07:20] LABS: % ATYL 2 % (0-0); % LYMPHS 45 % (24-48)
== END 2019-12-01 06:21 | disposition home or self-care (01) ==
LOC: ER 04:09
DX: D57.00 Hb-SS disease with crisis, unspecified (principal); F17.200 Nicotine dependence, unspecified, uncomplicated
CPT/HCPCS: 36415; 80048; 85007; 85025; 96374; 96376; 99284; J3010; J7030

== ENCOUNTER 2019-12-22 01:17 | Emergency (ER) | payer BC ==
[~2019-12-22] VITALS: Ht 175.3 cm; Wt 76.8 kg
[~2019-12-22 01:17] MED LIST changes: -OXYC15TA PO; +OXYC15TA3 PO
[2019-12-22 01:42] LABS: BASO # 0.1 x10^3/uL (0.0-0.2); BASO % 1 % (0-3); EOS # 0.2 x10^3/uL (0.0-0.7); EOS % 3 % (0-3); HEMATOCRIT 28.2 % (39.0-53.0); HEMOGLOBIN 10.2 g/dL (13.0-17.5); LYMPH # 3.4 x10^3/uL (1.0-4.8); LYMPH % 46 % (24-48); MEAN CORPUSCULAR HEMOGLOBIN 31 pg (25-35); MEAN CORPUSCULAR HGB CONC 36 g/dL (31-37); MEAN CORPUSCULAR VOLUME 85 fL (79-100); MONO # 1.1 x10^3/uL (0.0-1.1); MONO % 15 % (0-9); NEUT # 2.6 x10^3/uL (1.8-7.7); NEUT % 35 % (31-73); PLATELET COUNT 298 x10^3/uL (140-400); RED BLOOD COUNT 3.31 x10^6/uL (4.30-5.70); RED CELL DISTRIBUTION WIDTH 22.3 % (11.5-14.5); WHITE BLOOD COUNT 7.5 x10^3/uL (4.0-11.0)
[2019-12-22 01:47] LABS: CALCIUM 8.6 mg/dL (8.5-10.1); CREATININE 0.5 mg/dL (0.7-1.3); GFR 251.6
[2019-12-22 02:02] LABS: PLT ESTIMATE ADEQUATE (ADEQUATE)
[2019-12-22 02:03] LABS: ANISOCYTOSIS MOD; HYPOCHROMIA SLIGHT; POLYCHROMASIA SLIGHT; SICKLE CELLS FEW; TARGET CELLS FEW
[2019-12-22 02:04] LABS: HELMET CELLS OCC
[2019-12-22 02:05] LABS: POIKILOCYTOSIS MOD; SPHEROCYTES OCC
--- NOTE | 2019-12-22 02:19 | PHYS DOC ---
Past Medical History Past Medical History: Sickle Cell Disease Additional Past Medical Histor: AVASCULAR NECROSIS OF R HIP Past Surgical History: No Surgical History Additional Past Surgical Histo: L HIP BONE GRAFT Smoking Status: Current Every Day Smoker Alcohol Use: None Drug Use: Marijuana General Adult EDM: Chief Complaint: LOWER EXT PAIN HPI: HPI: Patient is a 24 year old male who presents with leg and back pain. Patient states that he believes he is in a sickle cell crisis. He states this pain is very similar to previous pain. He denies any chest pain, shortness of breath, fever, numbness, weakness. He is out of pain medicine at home. He has not had any fevers. Review of Systems: Review of Systems: General: Denies fever, chills, sweats, fatigue Eyes: Denies drainage, blurred vision HENT: Denies rhinorrhea, sore throat Respiratory: Denies cough, shortness of breath, wheezing Cardiac: Denies edema, palpitations, chest pain GI: Denies abdominal pain, N/V MSK: Denies back pain, neck pain Skin: Denies rash, jaundice Neuro: Denies headache, dizziness Psychiatric: Denies SI/HI Heart Score: Risk Factors: Risk Factors: DM, Current or recent (<one month) smoker, HTN, HLP, family history of CAD, obesity. Risk Scores: Score 0 - 3: 2.5% MACE over next 6 weeks - Discharge Home Score 4 - 6: 20.3% MACE over next 6 weeks - Admit for Clinical Observation Score 7 - 10: 72.7% MACE over next 6 weeks - Early Invasive Strategies Allergies: Allergies: Allergies Coded Allergies Type Severity Reaction Last Updated Verified No Known Drug Allergies 11/06/17 No Physical Exam: PE: Constitutional: Well developed, well nourished, Cooperative, NAD, non-toxic appearing HEENT: Normocephalic, atraumatic, oropharynx moist, EOMI, PERRL, no drainage from eyes, normal conjunctiva Neck: Supple, normal range of motion, no stridor Cardiovascular: RRR, 2+ radial pulses bilaterally, no edema Respiratory: CTA bilaterally, no respiratory distress, no wheezing/crackles Abdomen: Soft, nontender, nondistended, no masses Skin: Warm, dry, intact Extremities: No obvious deformities Neurologic: Alert and Oriented x3, motor and sensory function grossly normal, no focal deficits Psychologic: Normal affect, normal judgment, normal mood. No SI/HI Current Patient Data: Labs: Laboratory Tests Test 12/22/19 01:33 White Blood Count 7.5 x10^3/uL (4.0-11.0) Red Blood Count 3.31 x10^6/uL (4.30-5.70) L Hemoglobin 10.2 g/dL (13.0-17.5) L Hematocrit 28.2 % (39.0-53.0) L Mean Corpuscular Volume 85 fL (79-100) Mean Corpuscular Hemoglobin 31 pg (25-35) Mean Corpuscular Hemoglobin Concent 36 g/dL (31-37) Red Cell Distribution Width 22.3 % (11.5-14.5) H Platelet Count 298 x10^3/uL (140-400) Neutrophils (%) (Auto) 35 % (31-73) Lymphocytes (%) (Auto) 46 % (24-48) Monocytes (%) (Auto) 15 % (0-9) H Eosinophils (%) (Auto) 3 % (0-3) Basophils (%) (Auto) 1 % (0-3) Neutrophils # (Auto) 2.6 x10^3/uL (1.8-7.7) Lymphocytes # (Auto) 3.4 x10^3/uL (1.0-4.8) Monocytes # (Auto) 1.1 x10^3/uL (0.0-1.1) Eosinophils # (Auto) 0.2 x10^3/uL (0.0-0.7) Basophils # (Auto) 0.1 x10^3/uL (0.0-0.2) Platelet Estimate Adequate (ADEQUATE) Polychromasia Slight Hypochromasia Slight Poikilocytosis Mod Anisocytosis Mod Spherocytes Occ Sickle Cells Few Target Cells Few Helmet Cells Occ Sodium Level 139 mmol/L (136-145) Potassium Level 4.0 mmol/L (3.5-5.1) Chloride Level 104 mmol/L (98-107) Carbon Dioxide Level 25 mmol/L (21-32) Anion Gap 10 (6-14) Blood Urea Nitrogen 6 mg/dL (8-26) L Creatinine 0.5 mg/dL (0.7-1.3) L Estimated GFR (Cockcroft-Gault) 251.6 Glucose Level 91 mg/dL (70-99) Calcium Level 8.6 mg/dL (8.5-10.1) Laboratory Tests 12/22/19 01:33 Laboratory Tests 12/22/19 01:33 Vital Signs: Vital Signs Date Time Temp Pulse Resp B/P (MAP) Pulse Ox O2 Delivery O2 Flow Rate FiO2 12/22/19 01:20 98.9 70 12 129/52 (77) 96 Room Air 98.9 EKG: EKG: [] Radiology/Procedures: Radiology/Procedures: [] Course & Med Decision Making: Course & Med Decision Making Pertinent Labs and Imaging studies reviewed. (See chart for details) Patient is a 24-year-old male who presents to the emergency room with complaining of sickle cell pain. Patient is well-known to this emergency room for sickle cell pain crisis. Basic labs were ordered and were normal. Patient does not appear to be in any distress. Vitals are normal. He does not have any shortness of breath or chest pain that would be concerning for acute chest syndrome. He has normal perfusion in bilateral legs. He does not have any new pain. Patient was given fluids and will be discharged home to follow-up with his physician. I discussed with him that he will need to get refills on his narcotic pain medicine from his doctor. Patient's test results and vitals while in the ED were fully reviewed and discussed with the patient. Patient is stable and at this time does not need admission to the hospital. We have discussed strict return precautions and the importance of following up with their Primary Care Physician. Patient stated understanding and was given an opportunity to ask any questions. Candelario Disclaimer: Dragcaro Disclaimer: This electronic medical record was generated, in whole or in part, using a voice recognition dictation system. Departure Departure Referrals: UNKNOWN PCP NAME (PCP) VICKY HURTADO MD December 22, 2019 02:19
[2019-12-22] MEDS: IV NORMAL SALINE 1000ML BAG 1,000 ML IV ONE (02:30)
[2019-12-22] MEDS: MORPHINE SULFATE 10 MG/ML VIAL. IV ONE (02:41)
[2019-12-22 03:25] VITALS: BP 121/80
== END 2019-12-22 03:25 | disposition home or self-care (01) ==
LOC: ER 01:17
DX: D57.00 Hb-SS disease with crisis, unspecified (principal); F17.200 Nicotine dependence, unspecified, uncomplicated; M54.9 Dorsalgia, unspecified; M79.605 Pain in left leg; M79.604 Pain in right leg
CPT/HCPCS: 36415; 80048; 85025; 96374; 99285; J2270; J7030

== ENCOUNTER 2019-12-28 20:34 | Emergency (ER) | payer BC ==
[~2019-12-28] VITALS: Ht 175.3 cm; Wt 72.7 kg
--- NOTE | 2019-12-28 21:24 | PHYS DOC ---
Past Medical History Past Medical History: Sickle Cell Disease Additional Past Medical Histor: AVASCULAR NECROSIS OF R HIP Past Surgical History: No Surgical History Additional Past Surgical Histo: L HIP BONE GRAFT Smoking Status: Current Every Day Smoker Alcohol Use: None Drug Use: Marijuana General Adult EDM: Chief Complaint: LOWER EXT PAIN HPI: HPI: Patient is a 24 year old male who presents with complaint of sickle cell pain crisis that started about a week ago and has been off and on but pain is been severe over the last 2 days. He states that he is been having some nausea and vomiting and having difficulty in keeping anything down. Patient noted to be febrile in triage and patient was unaware that he was running fever. Patient states that he is hurting everywhere, in his back and extremities. He denies any chest pain however. He does admit to some shortness of breath but no cough. Patient rates his pain to be a 10 out of 10. Patient states that the last episode of sickle cell crisis was about a month ago. [] Review of Systems: Review of Systems: Constitutional: Positive fever. [] Respiratory: Denies cough. Complains of shortness of breath. [] Cardiovascular: Denies chest pain or edema. [] GI: Denies abdominal pain. Complains of nausea and vomiting. [] : Denies dysuria. [] Musculoskeletal: Complains of back and extremity pain. [] Integument: Denies rash. [] Neurologic: Denies headache, focal weakness or sensory changes. [] A full 10 point review of systems has been reviewed and is otherwise negative. Heart Score: Risk Factors: Risk Factors: DM, Current or recent (<one month) smoker, HTN, HLP, family history of CAD, obesity. Risk Scores: Score 0 - 3: 2.5% MACE over next 6 weeks - Discharge Home Score 4 - 6: 20.3% MACE over next 6 weeks - Admit for Clinical Observation Score 7 - 10: 72.7% MACE over next 6 weeks - Early Invasive Strategies Allergies: Allergies: Allergies Coded Allergies Type Severity Reaction Last Updated Verified No Known Drug Allergies 11/06/17 No Physical Exam: PE: Constitutional: Well developed, well nourished, no acute distress, non-toxic appearance. [] HENT: Normocephalic, atraumatic, bilateral external ears normal, oropharynx moist, no oral exudates, nose normal. [] Eyes: PERRLA, EOMI, conjunctiva normal, no discharge. [] Neck: Normal range of motion, no tenderness, supple. [] Cardiovascular: Mildly tachycardic rate with regular rhythm [] Lungs & Thorax: Bilateral breath sounds clear to auscultation [] Abdomen: Bowel sounds normal, soft, no tenderness. [] Skin: Warm, dry, no erythema, no rash. [] Extremities: No tenderness, no cyanosis, no clubbing, ROM intact, no edema. [] Neurologic: Alert and oriented X 3, no focal deficits noted. [] Current Patient Data: Vital Signs: Vital Signs Date Time Temp Pulse Resp B/P (MAP) Pulse Ox O2 Delivery O2 Flow Rate FiO2 12/28/19 20:45 100.2 104 22 132/75 (94) 95 Room Air 100.2 EKG: EKG: [] Radiology/Procedures: Radiology/Procedures: [] Course & Med Decision Making: Course & Med Decision Making Pertinent Labs and Imaging studies reviewed. (See chart for details) [] Dragon Disclaimer: Dragon Disclaimer: This electronic medical record was generated, in whole or in part, using a voice recognition dictation system. Departure Departure Impression: Primary Impression: Sickle cell pain crisis Additional Impression: Constipation Qualified Codes: K59.03 - Drug induced constipation Disposition: HOME, SELF-CARE Condition: STABLE Referrals: UNKNOWN PCP NAME (PCP) Patient Instructions: Constipation, Adult, Sickle Cell Pain Crisis Additional Instructions: Follow-up with your primary physician/service line coordinator for ongoing management of your sickle cell pain. Scripts Lactulose (LACTULOSE) 20 Gm/30 Ml Solution 20 GM PO DAILY PRN for CONSTIPATION, #900 ML Prov: RADHA KNAPP Jr. DO 12/29/19 RADHA KNAPP Jr. DO December 28, 2019 21:24
[2019-12-28] MEDS ORDERED: HYDROmorphone 2 MG/ML VIAL IV/SQ PRN (21:30)
[2019-12-28 21:48] LABS: CALCIUM 8.8 mg/dL (8.5-10.1); CREATININE 0.6 mg/dL (0.7-1.3); GFR 203.9; POTASSIUM 3.4 mmol/L (3.5-5.1)
[2019-12-28 21:51] LABS: ALBUMIN 4.2 g/dL (3.4-5.0); ALBUMIN/GLOBULIN RATIO 1.2 (1.0-1.7); TOTAL BILIRUBIN 3.6 mg/dL (0.2-1.0); TOTAL PROTEIN 7.7 g/dL (6.4-8.2)
--- NOTE | 2019-12-28 21:58 | RAD ---
EXAM: AP View of the chest DATE: 12/28/2019 9:18 PM INDICATION: Fever COMPARISON: 10/20/2019 FINDINGS: The heart is not enlarged. Mediastinal and hilar contours are normal. No focal parenchymal airspace opacity. No pleural effusion or pneumothorax. IMPRESSION: 1. No radiographic evidence for acute cardiopulmonary process. Electronically signed by: To Castano MD (12/28/2019 9:55 PM) SALLY
[2019-12-28 22:00] LABS: BASO # 0.1 x10^3/uL (0.0-0.2); BASO % 0 % (0-3); EOS % 0 % (0-3); HEMATOCRIT 28.1 % (39.0-53.0); LYMPH # 1.7 x10^3/uL (1.0-4.8); LYMPH % 12 % (24-48); MEAN CORPUSCULAR HEMOGLOBIN 31 pg (25-35); MEAN CORPUSCULAR HGB CONC 35 g/dL (31-37); MEAN CORPUSCULAR VOLUME 86 fL (79-100); MONO # 1.6 x10^3/uL (0.0-1.1); MONO % 12 % (0-9); NEUT # 10.4 x10^3/uL (1.8-7.7); NEUT % 76 % (31-73); PLATELET COUNT 214 x10^3/uL (140-400); RED BLOOD COUNT 3.27 x10^6/uL (4.30-5.70); RED CELL DISTRIBUTION WIDTH 21.7 % (11.5-14.5); WHITE BLOOD COUNT 13.7 x10^3/uL (4.0-11.0)
[2019-12-28] MEDS ORDERED: diphenhydrAMINE 50 MG/ML VIAL IVP ONE (22:00)
[2019-12-28] MEDS ORDERED: IV NORMAL SALINE 1000ML BAG 1,000 ML IV SCH (22:00)
[2019-12-28 22:16] LABS: INFLUENZA A PATIENT NEGATIVE (NEGATIVE); INFLUENZA B PATIENT NEGATIVE (NEGATIVE)
[2019-12-28] MEDS ORDERED: KETOROLAC 30 MG/ML VIAL. IVP ONE (22:30)
[2019-12-28] MEDS ORDERED: fentaNYL PF VIAL 100 MCG/2 ML VIAL IVP ONE (22:30)
[2019-12-28 22:36] LABS: ANISOCYTOSIS MOD; PLT ESTIMATE ADEQUATE (ADEQUATE); POLYCHROMASIA SLIGHT; SCHISTOCYTES FEW; SICKLE CELLS MOD; TARGET CELLS MOD
[2019-12-28 22:37] LABS: OVALOCYTES FEW
[2019-12-28 23:35] LABS: BILIRUBIN,URINE NEGATIVE (NEG); CLARITY,URINE CLEAR; NITRITE,URINE NEGATIVE (NEG); PROTEIN,URINE NEGATIVE (NEG-TRACE); UROBILINOGEN,URINE 0.2 mg/dL (0.2 mg/dL)
[2019-12-28 23:42] LABS: BACTERIA,URINE 0 /HPF (0-FEW); COLOR,URINE DK YELLOW; RBC,URINE 0 /HPF (0-2); SQUAMOUS EPITHELIAL CELL,UR OCC /LPF; WBC,URINE 0 /HPF (0-4)
[2019-12-29] MEDS ORDERED: LACT20SO PO (00:19)
[2019-12-29 01:10] VITALS: BP 133/74
== END 2019-12-29 01:15 | disposition home or self-care (01) ==
LOC: ER 20:34
DX: D57.00 Hb-SS disease with crisis, unspecified (principal); K59.03 Drug induced constipation; R11.2 Nausea with vomiting, unspecified; F17.200 Nicotine dependence, unspecified, uncomplicated
CPT/HCPCS: 36415; 71045; 80053; 81001; 85025; 85045; 87040; 87635; 87804; 96361; 96374; 96375; 99285; J1170; J1200; J1885; J3010; J7030

== ENCOUNTER 2020-02-06 21:36 | Emergency (ER) | payer BC ==
[~2020-02-06] VITALS: Ht 175.3 cm; Wt 72.7 kg
[~2020-02-06 21:36] MED LIST changes: +LACT20SO PO
--- NOTE | 2020-02-06 22:36 | PHYS DOC ---
Past Medical History Past Medical History: Sickle Cell Disease Additional Past Medical Histor: AVASCULAR NECROSIS OF R HIP Past Surgical History: No Surgical History Additional Past Surgical Histo: L HIP BONE GRAFT Smoking Status: Current Every Day Smoker Alcohol Use: None Drug Use: Marijuana General Adult EDM: Chief Complaint: GENERALIZED BODY ACHES HPI: HPI: Patient is a 24 year old male who presents with complaint of pain in his lower back as well as his arms and his legs that he states is a sickle cell pain servando is. Patient states that he has sickle cell SS. Patient denies any chest pain or shortness of breath. He rates his pain at a 10 out of 10. He was recently prescribed oxycodone to take at home but has not taken any since 10:00 this morning. [] Review of Systems: Review of Systems: Constitutional: Denies fever or chills. [] Respiratory: Denies cough or shortness of breath. [] Cardiovascular: Denies chest pain or edema. [] GI: Denies abdominal pain, nausea, vomiting, bloody stools or diarrhea. [] Musculoskeletal: Complains of lower back, bilateral arm and bilateral leg pain. [] Integument: Denies rash. [] Neurologic: Denies headache, focal weakness or sensory changes. [] A full 10 point review of systems has been reviewed and is otherwise negative Heart Score: Risk Factors: Risk Factors: DM, Current or recent (<one month) smoker, HTN, HLP, family history of CAD, obesity. Risk Scores: Score 0 - 3: 2.5% MACE over next 6 weeks - Discharge Home Score 4 - 6: 20.3% MACE over next 6 weeks - Admit for Clinical Observation Score 7 - 10: 72.7% MACE over next 6 weeks - Early Invasive Strategies Allergies: Allergies: Allergies Coded Allergies Type Severity Reaction Last Updated Verified No Known Drug Allergies 11/06/17 No Physical Exam: PE: Constitutional: Well developed, well nourished, no acute distress, non-toxic appearance. [] HENT: Normocephalic, atraumatic, bilateral external ears normal, oropharynx moist, no oral exudates, nose normal. [] Eyes: PERRLA, EOMI, conjunctiva normal, no discharge. [] Neck: Normal range of motion, no tenderness, supple. [] Cardiovascular: Regular rate and rhythm [] Lungs & Thorax: Bilateral breath sounds clear to auscultation [] Abdomen: Bowel sounds normal, soft, no tenderness. [] Skin: Warm, dry, no erythema, no rash. [] Extremities: No tenderness, no cyanosis, no clubbing, ROM intact, no edema. [] Neurologic: Alert and oriented X 3, no focal deficits noted. [] EKG: EKG: [] Radiology/Procedures: Radiology/Procedures: [] Course & Med Decision Making: Course & Med Decision Making Pertinent Labs and Imaging studies reviewed. (See chart for details) [] Dragon Disclaimer: Dragon Disclaimer: This electronic medical record was generated, in whole or in part, using a voice recognition dictation system. Departure Departure Impression: Primary Impression: Sickle cell disease Qualified Codes: D57.00 - Hb-SS disease with crisis, unspecified Disposition: 07 AGAINST MEDICAL ADVICE Condition: GOOD Referrals: UNKNOWN PCP NAME (PCP) Justicifation of Admission Dx: Justifications for Admission: Justification of Admission Dx: Comment: (Not applicable) RADHA KNAPP Jr. DO Feb 06, 2020 22:36
[2020-02-06] MEDS ORDERED: KETOROLAC 60 MG/2 ML VIAL. IM ONE (22:45)
[2020-02-06 22:58] LABS: BILIRUBIN,URINE NEGATIVE (NEG); CLARITY,URINE CLEAR; COLOR,URINE YELLOW; NITRITE,URINE NEGATIVE (NEG); PH,URINE 5.5 (<5.0-8.0); PROTEIN,URINE NEGATIVE (NEG-TRACE)
[2020-02-06 23:00] VITALS: BP 145/64
[2020-02-06 23:00] LABS: BASO # 0.1 x10^3/uL (0.0-0.2); BASO % 1 % (0-3); EOS # 0.2 x10^3/uL (0.0-0.7); EOS % 2 % (0-3); HEMATOCRIT 28.8 % (39.0-53.0); HEMOGLOBIN 10.5 g/dL (13.0-17.5); LYMPH # 2.6 x10^3/uL (1.0-4.8); LYMPH % 17 % (24-48); MEAN CORPUSCULAR HEMOGLOBIN 31 pg (25-35); MEAN CORPUSCULAR HGB CONC 37 g/dL (31-37); MEAN CORPUSCULAR VOLUME 86 fL (79-100); MONO # 1.6 x10^3/uL (0.0-1.1); MONO % 11 % (0-9); NEUT # 10.6 x10^3/uL (1.8-7.7); NEUT % 70 % (31-73); PLATELET COUNT 323 x10^3/uL (140-400); RED BLOOD COUNT 3.35 x10^6/uL (4.30-5.70); RED CELL DISTRIBUTION WIDTH 22.9 % (11.5-14.5); WHITE BLOOD COUNT 15.2 x10^3/uL (4.0-11.0)
[2020-02-06 23:06] LABS: CALCIUM 8.8 mg/dL (8.5-10.1); CREATININE 0.8 mg/dL (0.7-1.3); GFR 146.3; POTASSIUM 4.1 mmol/L (3.5-5.1)
[2020-02-06 23:07] LABS: AMPHETAMINE/METHAMPHETAMINE NEG (NEG); BARBITURATES NEG (NEG); BENZODIAZEPINES NEG (NEG); CANNABINOIDS POS (NEG); COCAINE NEG (NEG); METHADONE NEG (NEG); OPIATES NEG (NEG); PHENCYCLIDINE NEG (NEG)
[2020-02-06 23:09] LABS: AMORPHOUS SEDIMENT,UR PRESENT /HPF; BACTERIA,URINE 0 /HPF (0-FEW); RBC,URINE 0 /HPF (0-2); SQUAMOUS EPITHELIAL CELL,UR OCC /LPF; WBC,URINE OCC /HPF (0-4)
[2020-02-06 23:11] LABS: ALBUMIN 4.7 g/dL (3.4-5.0); ALBUMIN/GLOBULIN RATIO 1.5 (1.0-1.7); TOTAL BILIRUBIN 2.3 mg/dL (0.2-1.0); TOTAL PROTEIN 7.9 g/dL (6.4-8.2)
[2020-02-06 23:29] LABS: PLT ESTIMATE ADEQUATE (ADEQUATE)
[2020-02-06 23:30] LABS: ANISOCYTOSIS MOD; POIKILOCYTOSIS SLIGHT; POLYCHROMASIA SLIGHT
[2020-02-06 23:31] LABS: OVALOCYTES FEW; SICKLE CELLS OCC
== END 2020-02-06 23:34 | disposition left against medical advice (07) ==
LOC: ER 21:36
DX: D57.00 Hb-SS disease with crisis, unspecified (principal); M79.602 Pain in left arm; M79.601 Pain in right arm; M54.5 Low back pain; M79.604 Pain in right leg; M79.605 Pain in left leg; F17.200 Nicotine dependence, unspecified, uncomplicated
CPT/HCPCS: 36415; 80053; 80307; 81001; 85025; 85045; 96372; 99283; J1885

== ENCOUNTER 2020-03-25 09:54 | Inpatient (IN) | payer BC, MEDICARE ==
[~2020-03-25] VITALS: Ht 175.3 cm; Wt 76.8 kg
[2020-03-25] MEDS ORDERED: IV NORMAL SALINE 1000ML BAG 1,000 ML IV ONE (10:30)
--- NOTE | 2020-03-25 10:36 | PHYS DOC ---
Past Medical History Past Medical History: Sickle Cell Disease Additional Past Medical Histor: AVASCULAR NECROSIS OF R HIP Past Surgical History: Other Additional Past Surgical Histo: L HIP BONE GRAFT Smoking Status: Current Every Day Smoker Alcohol Use: None Drug Use: Marijuana General Adult EDM: Chief Complaint: PAIN CONTROL HPI: HPI: The history was obtained from the patient. Patient is a 24-year-old male with PMH sickle cell disease who presents with a chief complaint of pain. Patient states he has had gradual onset pain in his back, legs, and headache for the past week. He states this is similar to previous pain crises. 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 He states he was recently hospitalized and discharged 2 weeks ago at their facility for pain crises. He states he is prescribed oxycodone 20 mg every 3 hours as needed for pain at home. He did try 1 tablet 3 hours ago with minimal relief. He denies any cough, shortness of breath, or fever. He denies any infection related to his sickle cell disease in the past. He denies any vomiting or abdominal pain. He does take hydroxyurea and folate daily. He denies any neck stiffness, photophobia, or phonophobia. Denies any history of splenectomy. States that he is unsure of his emergency department pain regimen thinks it may be 100 mcg of fentanyl 3 times as needed. He does note that he has a follow-up appoint with his garment finisher next week. no other complaints at this time. Review of Systems: Review of Systems: Constitutional: Denies fever or chills. [] Eyes: Denies change in visual acuity. [] HENT: Denies nasal congestion or sore throat. [] Respiratory: Denies cough or shortness of breath. [] Cardiovascular: Denies chest pain or edema. [] GI: Denies abdominal pain, nausea, vomiting, bloody stools or diarrhea. [] : Denies dysuria. [] Musculoskeletal: Positive for arthralgias and myalgias Integument: Denies rash. [] Neurologic: Denies headache, focal weakness or sensory changes. [] Endocrine: Denies polyuria or polydipsia. [] Lymphatic: Denies swollen glands. [] Psychiatric: Denies depression or anxiety. [] Heart Score: Risk Factors: Risk Factors: DM, Current or recent (<one month) smoker, HTN, HLP, family history of CAD, obesity. Risk Scores: Score 0 - 3: 2.5% MACE over next 6 weeks - Discharge Home Score 4 - 6: 20.3% MACE over next 6 weeks - Admit for Clinical Observation Score 7 - 10: 72.7% MACE over next 6 weeks - Early Invasive Strategies Current Medications: Current Medications Medications (Trade) Dose Ordered Sig/Glenis Start Time Stop Time Status Last Admin Dose Admin Sodium Chloride 1,000 ml @ 1,000 mls/hr 1X ONCE 03/25/20 10:30 03/25/20 11:29 Allergies: Allergies: Allergies Coded Allergies Type Severity Reaction Last Updated Verified No Known Drug Allergies 11/06/17 No Physical Exam: PE: Constitutional: Well developed, well nourished, no acute distress, non-toxic appearance. [] HENT: Normocephalic, atraumatic, bilateral external ears normal, oropharynx moist, no oral exudates, nose normal. [] Eyes: PERRLA, EOMI, conjunctiva normal, no discharge. [] Neck: Normal range of motion, no tenderness, supple, no stridor. [] Cardiovascular:Heart rate regular rhythm, no murmur [] Lungs & Thorax: Bilateral breath sounds clear to auscultation [] Abdomen: soft, no tenderness, no masses, no pulsatile masses. [] Skin: Warm, dry, no erythema, no rash. [] Back: No tenderness, no CVA tenderness. [] Extremities: No tenderness, no cyanosis, no clubbing, ROM intact, no edema. [] Neurologic: Alert and oriented X 3, normal motor function, normal sensory function, no focal deficits noted. [] Psychologic: Affect normal, judgement normal, mood normal. [] Current Patient Data: Labs: Laboratory Tests Test 03/25/20 10:34 White Blood Count 8.2 x10^3/uL Red Blood Count 3.26 x10^6/uL Hemoglobin 9.5 g/dL Hematocrit 26.4 % Mean Corpuscular Volume 83 fL Mean Corpuscular Hemoglobin 30 pg Mean Corpuscular Hemoglobin Concent 36 g/dL Red Cell Distribution Width 24.7 % Platelet Count 459 x10^3/uL Neutrophils (%) (Auto) 57 % Lymphocytes (%) (Auto) 32 % Monocytes (%) (Auto) 9 % Eosinophils (%) (Auto) 1 % Basophils (%) (Auto) 1 % Neutrophils # (Auto) 4.7 x10^3/uL Lymphocytes # (Auto) 2.6 x10^3/uL Monocytes # (Auto) 0.7 x10^3/uL Eosinophils # (Auto) 0.1 x10^3/uL Basophils # (Auto) 0.1 x10^3/uL Platelet Estimate Increased Large Platelets Few Giant Platelets Few Polychromasia Present Hypochromasia Slight Poikilocytosis Marked Anisocytosis Mod Spherocytes Occ Sickle Cells Present Target Cells Present Tear Drop Cells Few Ovalocytes Few Schistocytes Few Absolute Reticulocyte Count 0.113 x10^6/uL Percent Reticulocyte Count 3.5 % Immature Reticulocyte Fraction 0.68 Lactate Dehydrogenase 680 U/L Current Medications Medications (Trade) Dose Ordered Sig/Glensi Route PRN Reason Start Time Stop Time Status Last Admin Dose Admin Sodium Chloride 1,000 ml @ 1,000 mls/hr 1X ONCE IV 03/25/20 10:30 03/25/20 11:29 DC 03/25/20 10:41 Hydromorphone HCl (Dilaudid) 1 mg 1X ONCE IV 03/25/20 10:45 03/25/20 10:46 DC 03/25/20 10:41 Fentanyl Citrate (Fentanyl 2ml Vial) 100 mcg 1X ONCE IVP 03/25/20 11:30 03/25/20 11:31 DC 03/25/20 11:39 Ceftriaxone Sodium (Rocephin) 1 gm 1X ONCE IVP 03/25/20 11:30 03/25/20 11:31 DC 03/25/20 11:42 Azithromycin 250 ml @ 250 mls/hr 1X ONCE IV 03/25/20 11:30 03/25/20 12:29 Cancel Azithromycin 250 ml @ 250 mls/hr 1X ONCE IV 03/25/20 12:00 03/25/20 12:59 DC 03/25/20 12:06 Fentanyl Citrate (Fentanyl 2ml Vial) 100 mcg 1X ONCE IVP 03/25/20 12:45 03/25/20 12:46 DC 03/25/20 12:56 Vital Signs: Vital Signs Date Time Temp Pulse Resp B/P (MAP) Pulse Ox O2 Delivery O2 Flow Rate FiO2 03/25/20 10:01 98.7 78 16 139/70 (93) 95 Room Air 98.7 EKG: EKG: [] Radiology/Procedures: Radiology/Procedures: [facility] [address] [place] [address] IMAGING REPORT Signed PATIENT: RASHAUN CHURCH EACCOUNT: [id number] : 1995 LOCATION: ER AGE: 24 SEX: M EXAM STATUS: REG ER ORD. PHYSICIAN: DANETTE BERGMAN DO REASON: sickle cell patient with pain. eval for acute chest syndrome PROCEDURE: CHEST PA & LATERAL CHEST PA LATERAL History: Reason: sickle cell patient with pain. eval for acute chest syndrome / Spl. Instructions: / History: Comparison: December 28, 2019 Findings: Right basilar consolidation. Elevation the right hemidiaphragm. No pneumothorax. Unchanged heart size. No pleural effusion. Impression: 1. Right lower lung consolidation and volume loss with elevation the right hemidiaphragm, can be seen with acute chest syndrome or pneumonia. Recommend follow-up to ensure resolution. Electronically signed by: Nahum Sheriff DO (03/25/2020 11:08 AM) [id number] DICTATED and SIGNED BY: NAHUM SHERIFF DO DATE: 03/25/20 1108 [] Course & Med Decision Making: Course & Med Decision Making Pertinent Labs and Imaging studies reviewed. (See chart for details) Patient is a 24-year-old male who presents with chief complaint of sickle cell pain crisis. Initial vital signs unremarkable. Laboratory analysis gross unremarkable. Hemoglobin slightly decreased from baseline. No signs of splenic sequestration or aplastic crisis. Chest x-ray does show infiltrate in right lower lobe. Multiple rounds of pain medication were given. Patient states that his pain is not been well controlled. Given his potential pulmonary infiltrate and lack of pain control I do feel he would benefit from hospitalization. IV fluids were administered. Rocephin and azithromycin was given. Patient remained 99% on room air. He is agreeable to hospitalization. Signout given to hospitalist. Candelario Disclaimer: Candelario Disclaimer: This electronic medical record was generated, in whole or in part, using a voice recognition dictation system. Departure Departure Referrals: UNKNOWN PCP NAME (PCP) Justicifation of Admission Dx: Justifications for Admission: Justification of Admission Dx: Yes (pneumonia with sickle pain crisis) DANETTE BERGMAN DO Mar 25, 2020 10:36
[2020-03-25] MEDS ORDERED: HYDROmorphone 2 MG/ML VIAL IV ONE (10:45)
[2020-03-25 10:54] LABS: BASO # 0.1 x10^3/uL (0.0-0.2); BASO % 1 % (0-3); EOS # 0.1 x10^3/uL (0.0-0.7); EOS % 1 % (0-3); HEMATOCRIT 26.4 % (39.0-53.0); HEMOGLOBIN 9.5 g/dL (13.0-17.5); LYMPH # 2.6 x10^3/uL (1.0-4.8); LYMPH % 32 % (24-48); MEAN CORPUSCULAR HEMOGLOBIN 30 pg (25-35); MEAN CORPUSCULAR HGB CONC 36 g/dL (31-37); MEAN CORPUSCULAR VOLUME 83 fL (79-100); MONO # 0.7 x10^3/uL (0.0-1.1); MONO % 9 % (0-9); NEUT # 4.7 x10^3/uL (1.8-7.7); NEUT % 57 % (31-73); PLATELET COUNT 459 x10^3/uL (140-400); RED BLOOD COUNT 3.17 x10^6/uL (4.30-5.70); RED CELL DISTRIBUTION WIDTH 24.7 % (11.5-14.5); WHITE BLOOD COUNT 8.2 x10^3/uL (4.0-11.0)
--- NOTE | 2020-03-25 11:11 | RAD ---
CHEST PA LATERAL History: Reason: sickle cell patient with pain. eval for acute chest syndrome / Spl. Instructions: / History: Comparison: December 28, 2019 Findings: Right basilar consolidation. Elevation the right hemidiaphragm. No pneumothorax. Unchanged heart size. No pleural effusion. Impression: 1. Right lower lung consolidation and volume loss with elevation the right hemidiaphragm, can be seen with acute chest syndrome or pneumonia. Recommend follow-up to ensure resolution. Electronically signed by: Nahum Sheriff DO (03/25/2020 11:08 AM) [id number]
[2020-03-25 11:15] LABS: PLT ESTIMATE INCREASED (ADEQUATE)
[2020-03-25 11:16] LABS: ANISOCYTOSIS MOD; HYPOCHROMIA SLIGHT; POIKILOCYTOSIS MARKED; POLYCHROMASIA PRESENT
[2020-03-25 11:17] LABS: OVALOCYTES FEW; SICKLE CELLS PRESENT; SPHEROCYTES OCC; TARGET CELLS PRESENT
[2020-03-25 11:18] LABS: SCHISTOCYTES FEW; TEAR DROP CELLS FEW
[2020-03-25] MEDS ORDERED: cefTRIAXone IV Push 1 GM VIAL. IVP ONE (11:30)
[2020-03-25] MEDS ORDERED: fentaNYL PF VIAL 100 MCG/2 ML VIAL IVP ONE ×2 (11:30→12:45)
[2020-03-25] MEDS ORDERED: AZITHRMYCN 500MG IVPB FOR OMNI 250 ML IV ONE ×2 (11:30→12:00)
[2020-03-25] MEDS ORDERED: ONDANSETRON PF 4 MG/2 ML VIAL. IV PRN ×2 (13:15→14:30)
--- NOTE | 2020-03-25 13:15 | PDOC1 ---
History and Physical Date of Admission Date of Admission DATE: 03/25/20 TIME: 13:14 Identification/Chief Complaint Chief Complaint SEEN IN ER WITH SEVERE PAIN, 24-year-old male with PMH sickle cell disease who presents with a chief complaint of pain. Patient states he has had gradual onset pain in his back, legs, and headache for the past week. //similar to previous pain crises. 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 He states he was recently hospitalized and discharged 2 weeks ago at their facility for pain crises. // he is prescribed oxycodone 20 mg every 3 hours as needed for pain at home. // did try 1 tablet 3 hours ago with minimal relief. He denies any cough, shortness of breath, or fever. denies any vomiting or abdominal pain. He does take hydroxyurea and folate daily. He denies any neck stiffness, photophobia, or phonophobia. NO history of splenectomy. he has a follow-up appoint with his motor and generator brush cutter next week. Past Medical History Past Medical History Past Medical History Past Medical History: Sickle Cell Disease Additional Past Medical Histor: AVASCULAR NECROSIS OF R HIP Past Surgical History: Other Additional Past Surgical Histo: L HIP BONE GRAFT Smoking Status: Current Every Day Smoker Alcohol Use: None Drug Use: Marijuana FHX COPD Pulmonary: No pertinent hx ENT: No pertinent hx Family History Family History: High Cholestrol, Hypertension Social History Smoke: <1 pack per day ALCOHOL: none Drugs: None Current Problem List Problem List Problems Medical Problems: (1) Sickle cell pain crisis Status: Acute Current Medications Current Medications Current Medications Sodium Chloride 1,000 ml @ 1,000 mls/hr 1X ONCE IV Last administered on 03/25/20at 10:41; Start 03/25/20 at 10:30; Stop 03/25/20 at 11:29; Status DC Hydromorphone HCl (Dilaudid) 1 mg 1X ONCE IV Last administered on 03/25/20at 10:41; Start 03/25/20 at 10:45; Stop 03/25/20 at 10:46; Status DC Fentanyl Citrate (Fentanyl 2ml Vial) 100 mcg 1X ONCE IVP Last administered on 03/25/20at 11:39; Start 03/25/20 at 11:30; Stop 03/25/20 at 11:31; Status DC Ceftriaxone Sodium (Rocephin) 1 gm 1X ONCE IVP Last administered on 03/25/20at 11:42; Start 03/25/20 at 11:30; Stop 03/25/20 at 11:31; Status DC Azithromycin 250 ml @ 250 mls/hr 1X ONCE IV ; Start 03/25/20 at 11:30; Stop 03/25/20 at 12:29; Status Cancel Azithromycin 250 ml @ 250 mls/hr 1X ONCE IV Last administered on 03/25/20at 12:06; Start 03/25/20 at 12:00; Stop 03/25/20 at 12:59; Status DC Fentanyl Citrate (Fentanyl 2ml Vial) 100 mcg 1X ONCE IVP Last administered on 03/25/20at 12:56; Start 03/25/20 at 12:45; Stop 03/25/20 at 12:46; Status DC Ondansetron HCl (Zofran) 4 mg PRN Q8HRS PRN IV NAUSEA/VOMITING; Start 03/25/20 at 13:15; Stop 03/26/20 at 13:14 Morphine Sulfate (Morphine Sulfate) 4 mg PRN Q2HR PRN IV PAIN; Start 03/25/20 at 13:15; Stop 03/26/20 at 13:14 Active Scripts Active Lactulose 20 Gm/30 Ml Solution 20 Gm PO DAILY PRN Roxicodone (Oxycodone Hcl) 15 Mg Tablet 1 Tab PO Q6HRS PRN MDD 4 Tablet(s) Zofran (Ondansetron Hcl) 4 Mg Tablet 1 Tab PO Q6HRS PRN 4 Days Kinzers 5-325 Tablet (Acetaminophen/Hydrocodone Bitart) 1 Each Tablet 1-2 Tab PO Q4-6HRS 3 Days Percocet 7.5-325 Mg Tablet (Oxycodone/Acetaminophen) 1 Each Tablet 1 Tab PO QIDPRN PRN MDD 4 Tablet(s) Kinzers 5-325 Tablet (Acetaminophen/Hydrocodone Bitart) 1 Each Tablet 1 Each PO PRN Q6HRS PRN as needed for pain Kinzers 5-325 Tablet (Acetaminophen/Hydrocodone Bitart) 1 Each Tablet 1 Tab PO PRN Q6HRS PRN Oxycodone Hcl Immed.release (Oxycodone Hcl) 10 Mg Tablet 10 Mg PO PRN Q6HRS PRN 4 Days Oxycontin (Oxycodone HCl) 20 Mg Tab.er.12h 20 Mg PO BID 4 Days Lidocaine-Prilocaine Cream (Lidocaine/Prilocaine) 30 Gm Cream..g. 30 Gm TP Q8HRS PRN Kinzers 5-325 Tablet (Acetaminophen/Hydrocodone Bitart) 1 Each Tablet 1-2 Each PO PRN Q6HRS PRN as needed for pain Percocet 5-325 Mg Tablet (Oxycodone/Acetaminophen) 1 Each Tablet 1-2 Tab PO Q4-6HRS PRN Oxycodone Hcl Immed.release (Oxycodone Hcl) 15 Mg Tablet 1 Tab PO PRN Q6-8HRS PRN Reported Oxycontin (Oxycodone HCl) 20 Mg Tab.er.12h 15 Mg PO BID Allergies Allergies: Coded Allergies: No Known Drug Allergies (Unverified , 11/06/17) ROS Review of System Review of Systems: Constitutional: Denies fever or chills. [] Eyes: Denies change in visual acuity. [] HENT: Denies nasal congestion or sore throat. [] Respiratory: Denies cough or shortness of breath. [] Cardiovascular: Denies chest pain or edema. [] GI: Denies abdominal pain, nausea, vomiting, bloody stools or diarrhea. [] : Denies dysuria. [] Musculoskeletal: Positive for arthralgias and myalgias Integument: Denies rash. [] Neurologic: Denies headache, focal weakness or sensory changes. [] Endocrine: Denies polyuria or polydipsia. [] Lymphatic: Denies swollen glands. [] Psychiatric: Denies depression or anxiety. [] 14 PT ROS OTHERWISE NEG Musculoskeletal: Yes Joint Pain, Yes Joint Stiffness, Yes Muscle Pain Physical Exam Physical Exam Constitutional: Well developed, well nourished, MILD acute distress, non-toxic appearance. [] HENT: Normocephalic, atraumatic, bilateral external ears normal, oropharynx moist, no oral exudates, nose normal. [] Eyes: PERRLA, EOMI, conjunctiva normal, no discharge. [] Neck: Normal range of motion, no tenderness, supple, no stridor. [] Cardiovascular:Heart rate regular rhythm, no murmur [] Lungs & Thorax: Bilateral breath sounds clear to auscultation [] Abdomen: soft, no tenderness, no masses, no pulsatile masses. [] Skin: Warm, dry, no erythema, no rash. [] Back: No tenderness, no CVA tenderness. [] Extremities: No tenderness, no cyanosis, no clubbing, ROM intact, no edema. [] Neurologic: Alert and oriented X 3, normal motor function, normal sensory function, no focal deficits noted. [] Psychologic: Affect normal, judgement normal, mood normal. [] General: Alert, Cooperative, mild distress, moderate distress HEENT: Atraumatic, EOMI, Mucous membr. moist/pink Lungs: Normal air movement Heart: S1S2, RRR Breasts: Not examined Abdomen: Normal bowel sounds, Soft Rectal Exam: not examined PELVIC: Examination not indicated Extremities: No cyanosis, No edema Skin: No breakdown Neuro: Normal speech, Cranial nerves 3-12 NL Vitals Vitals Vital Signs Date Time Temp Pulse Resp B/P (MAP) Pulse Ox O2 Delivery O2 Flow Rate FiO2 03/25/20 12:56 18 99 Room Air 03/25/20 12:36 92 03/25/20 10:01 98.7 139/70 (93) 98.7 Labs Labs Laboratory Tests Test 03/25/20 10:34 White Blood Count 8.2 x10^3/uL (4.0-11.0) Red Blood Count 3.26 x10^6/uL (4.30-5.70) Hemoglobin 9.5 g/dL (13.0-17.5) Hematocrit 26.4 % (39.0-53.0) Mean Corpuscular Volume 83 fL (79-100) Mean Corpuscular Hemoglobin 30 pg (25-35) Mean Corpuscular Hemoglobin Concent 36 g/dL (31-37) Red Cell Distribution Width 24.7 % (11.5-14.5) Platelet Count 459 x10^3/uL (140-400) Neutrophils (%) (Auto) 57 % (31-73) Lymphocytes (%) (Auto) 32 % (24-48) Monocytes (%) (Auto) 9 % (0-9) Eosinophils (%) (Auto) 1 % (0-3) Basophils (%) (Auto) 1 % (0-3) Neutrophils # (Auto) 4.7 x10^3/uL (1.8-7.7) Lymphocytes # (Auto) 2.6 x10^3/uL (1.0-4.8) Monocytes # (Auto) 0.7 x10^3/uL (0.0-1.1) Eosinophils # (Auto) 0.1 x10^3/uL (0.0-0.7) Basophils # (Auto) 0.1 x10^3/uL (0.0-0.2) Platelet Estimate Increased (ADEQUATE) Large Platelets Few Giant Platelets Few Polychromasia Present Hypochromasia Slight Poikilocytosis Marked Anisocytosis Mod Spherocytes Occ Sickle Cells Present Target Cells Present Tear Drop Cells Few Ovalocytes Few Schistocytes Few Absolute Reticulocyte Count 0.113 x10^6/uL (0.020-0.120) Percent Reticulocyte Count 3.5 % (0.5-2.3) Immature Reticulocyte Fraction 0.68 (0.20-0.60) Lactate Dehydrogenase 680 U/L (85-227) Laboratory Tests Test 03/25/20 10:34 White Blood Count 8.2 x10^3/uL (4.0-11.0) Red Blood Count 3.26 x10^6/uL (4.30-5.70) Hemoglobin 9.5 g/dL (13.0-17.5) Hematocrit 26.4 % (39.0-53.0) Mean Corpuscular Volume 83 fL (79-100) Mean Corpuscular Hemoglobin 30 pg (25-35) Mean Corpuscular Hemoglobin Concent 36 g/dL (31-37) Red Cell Distribution Width 24.7 % (11.5-14.5) Platelet Count 459 x10^3/uL (140-400) Neutrophils (%) (Auto) 57 % (31-73) Lymphocytes (%) (Auto) 32 % (24-48) Monocytes (%) (Auto) 9 % (0-9) Eosinophils (%) (Auto) 1 % (0-3) Basophils (%) (Auto) 1 % (0-3) Neutrophils # (Auto) 4.7 x10^3/uL (1.8-7.7) Lymphocytes # (Auto) 2.6 x10^3/uL (1.0-4.8) Monocytes # (Auto) 0.7 x10^3/uL (0.0-1.1) Eosinophils # (Auto) 0.1 x10^3/uL (0.0-0.7) Basophils # (Auto) 0.1 x10^3/uL (0.0-0.2) Platelet Estimate Increased (ADEQUATE) Large Platelets Few Giant Platelets Few Polychromasia Present Hypochromasia Slight Poikilocytosis Marked Anisocytosis Mod Spherocytes Occ Sickle Cells Present Target Cells Present Tear Drop Cells Few Ovalocytes Few Schistocytes Few Absolute Reticulocyte Count 0.113 x10^6/uL (0.020-0.120) Percent Reticulocyte Count 3.5 % (0.5-2.3) Immature Reticulocyte Fraction 0.68 (0.20-0.60) Lactate Dehydrogenase 680 U/L (85-227) Images Images CHEST PA LATERAL History: Reason: sickle cell patient with pain. eval for acute chest syndrome / Spl. Instructions: / History: Comparison: December 28, 2019 Findings: Right basilar consolidation. Elevation the right hemidiaphragm. No pneumothorax. Unchanged heart size. No pleural effusion. Impression: 1. Right lower lung consolidation and volume loss with elevation the right hemidiaphragm, can be seen with acute chest syndrome or pneumonia. Recommend follow-up to ensure resolution. Electronically signed by: Trip Reyna DO (03/25/2020 11:08 AM) [id number] DICTATED and SIGNED BY: TRIP REYNA DO DATE: 03/25/20 1108 VTE Prophylaxis Ordered VTE Prophylaxis Devices: No VTE Pharmacological Prophylaxi: Yes Assessment/Plan Assessment/Plan IMPRESSION Sickle cell crisis. ACUTE Pneumonia Right lower lung consolidation and volume loss with elevation the right hemidiaphragm, IE, pneumonia. INTRACTABLE PAIN TOBACCO ABUSE DISORDER plan admitted. IV fluids, IV ANTIBIOTICS multiple vitamins, Hematology CONSULT P.r.n. narcotics. Follow retic count. O2 per nasal cannula. iv pain control dvt prophylaxis PULM CONSULT COVID-19 SCREEN 76 MIN PT EXAM, chart review, > 50% of time spent with exam, chart review, pt care coordination Justicifation of Admission Dx: Justifications for Admission: Justification of Admission Dx: Yes Aspiration Pneumonia: Hemodynamic Instability Sepsis: Dehydration Angina: Cresendo Worsening of Sym Comments: SICKLE CELL CRISIS BHANU HARRIS MD Mar 25, 2020 13:15
[2020-03-25] MEDS ORDERED: SODIUM PHOSPHATES 19/7GM 133 ML ENEMA. PR PRN (14:30)
[2020-03-25] MEDS ORDERED: LACTULOSE 20 GM/30 ML SOLUTION. PO PRN (14:30)
[2020-03-25] MEDS ORDERED: DOCUSATE SODIUM 100 MG CAPSULE. PO PRN (14:30)
[2020-03-25] MEDS ORDERED: HYDROcodone/APAP 5/325MG 1 TAB TABLET PO PRN ×2 (14:30)
[2020-03-25] MEDS ORDERED: 0.9 % SODIUM CHLORIDE 10 ML DISP.SYRIN. IV PRN (14:30)
[2020-03-25] MEDS ORDERED: ALBUTEROL SULFATE 2.5 MG/3 ML NEBU. NEB PRN (14:30)
[2020-03-25] MEDS ORDERED: ACETAMINOPHEN 650 MG SUPP.RECT. PR PRN (14:30)
[2020-03-25] MEDS ORDERED: MAG HYDROX/ALUMINUM HYD/SIMETH 30 ML ORAL.SUSP PO PRN (14:30)
[2020-03-25] MEDS ORDERED: LIDOCAINE/PRILOCAINE TOPICAL CREAM 5GM TUBE. TP PRN (14:30)
[2020-03-25] MEDS ORDERED: guaiFENesin ORAL 200 MG/10 ML LIQUID. PO PRN (14:30)
[2020-03-25] MEDS ORDERED: ACETAMINOPHEN 325 MG TABLET. PO PRN (14:30)
[2020-03-25] MEDS ORDERED: ONDANSETRON ODT 4 MG TAB.RAPDIS. PO PRN (14:30)
[2020-03-25] MEDS: MORPHINE SULFATE 4 MG/ML VIAL. IV PRN ×3 (15:19→19:35)
[2020-03-25] MEDS: LORazepam 0.5 MG TABLET PO PRN ×2 (15:19→19:35)
--- NOTE | 2020-03-25 16:16 | NUR ---
Pt arrived on unit at 1615 by bed from ED. Pt rating pain at 8. Requesting water. Fresh pitcher given. Will assume care and monitor this pt closely.
[2020-03-25] MEDS: IV NORMAL SALINE 1000ML BAG 1,000 ML IV SCH (16:36)
--- NOTE | 2020-03-25 18:25 | NUR ---
Pt reports oxycodone 20 mg as only home medication. Reviewed in med rec.
[2020-03-25 18:47] VITALS: BP 138/76
[2020-03-25] MEDS ORDERED: fentaNYL PF VIAL 100 MCG/2 ML VIAL IVP PRN (20:15)
[2020-03-25 20:19] VITALS: BP 141/51
[2020-03-25] MEDS: KETOROLAC 30 MG/ML VIAL. IVP PRN (20:26)
--- NOTE | 2020-03-25 20:42 | NUR ---
Pt moaning and adryan in room and states his pain is worse than when he came in and pt states he feels like he is dying slowly. Pt given ativan to help him relax. Pt states morphine is making his pain worse. Attempted to give pt morphine while in the room. Called Physician and received additional orders for pain medication. Pt states when he is in crisis he normally takes fentanyl 100mcg, toradol and oxycodone 20mg for pain. After giving pain medication pt rested with eyes closed. Will continue to monitor during the noc.
[2020-03-25] MEDS: oxyCODONE IR 5 MG TABLET PO PRN (22:54)
[2020-03-25] MEDS: HEPARIN for SUB-Q USE 5,000 UNIT/ML VIAL. SQ SCH (22:55)
--- NOTE | 2020-03-25 23:00 | NUR ---
Pt refused to take heparin dose during the noc, pt states he normally does not take. Pt informed of possible complications with blood clots however still refusing to take after education.
[2020-03-25 23:37] VITALS: BP 122/67
[2020-03-25] MEDS: fentaNYL PF VIAL 100 MCG/2 ML VIAL IVP PRN (23:41)
[2020-03-26] MEDS: LORazepam 0.5 MG TABLET PO PRN ×3 (02:19→19:32)
[2020-03-26] MEDS: KETOROLAC 30 MG/ML VIAL. IVP PRN ×4 (02:20→21:47)
[2020-03-26] MEDS: IV NORMAL SALINE 1000ML BAG 1,000 ML IV SCH ×3 (02:21→20:40)
[2020-03-26 03:30] VITALS: BP 133/61
[2020-03-26] MEDS: fentaNYL PF VIAL 100 MCG/2 ML VIAL IVP PRN ×5 (03:52→23:38)
[2020-03-26] MEDS: oxyCODONE IR 5 MG TABLET PO PRN ×2 (03:52→19:33)
[2020-03-26] MEDS ORDERED: OXYC10TA PO (04:39)
[2020-03-26] MEDS: HEPARIN for SUB-Q USE 5,000 UNIT/ML VIAL. SQ SCH ×4 (05:10→20:46)
--- NOTE | 2020-03-26 07:00 | NUR ---
Pt refused labs this am and continues at this time to refuse swab for Covid. Pt continues in isolation. Pt states he has done test before and was negative. Pt informed of needing to swab again due to new admit and pt states will attempt later.
[2020-03-26 07:25] VITALS: BP 128/64
--- NOTE | 2020-03-26 10:29 | CONS ---
DATE OF CONSULTATION: PULMONARY CONSULTATION ATTENDING PHYSICIAN: Dr. Herring. REASON FOR CONSULTATION: Pneumonia. HISTORY OF PRESENT ILLNESS: The patient is a 24-year-old male with history of sickle cell disease. He states that he came into the hospital with his typical sickle cell crisis symptoms. He has gradual onset of pain in his back, legs and headache for the past 1 week. He was at [facility] about 2 weeks ago. He was admitted there for pain crisis. The patient smoke cigarettes and also does marijuana. He denies any cough, denies any shortness of breath and since hospitalization, his T-max is 99.4. I have reviewed the patient's chest x-ray. There was no old x-ray available for comparison. He does have a right lower lobe infiltrate and volume loss in the right lower lung. PAST MEDICAL HISTORY: History of sickle cell disease. History of multiple admissions for sickle cell crisis with pain. History of avascular necrosis of the right hip. PAST SURGICAL HISTORY: Left hip bone grafts. SOCIAL HISTORY: Smoker as well as does marijuana. ALLERGIES: None. MEDICATIONS: Reviewed as listed in the MRAD including antibiotic azithromycin and Rocephin. REVIEW OF SYSTEMS: Twelve-point system obtained. Pertinent positives discussed in my history of present illness, otherwise noncontributory. All systems that were negative were reviewed as well. FAMILY HISTORY: Noncontributory to lungs. PHYSICAL EXAMINATION: VITAL SIGNS: Reviewed. T-max of 99.4, blood pressure stable, pulse ox 99% on room air. NECK: Supple. LUNGS: With diminished breath sounds. CARDIOVASCULAR: With a regular rate. ABDOMEN: Soft. EXTREMITIES: With no pitting edema. LABORATORY DATA: Reviewed. White cell count 8.2, hemoglobin 9.5 and platelets are 459. LDH is 680. IMPRESSION: 1. Abnormal chest x-ray with right lower lobe infiltrate. He has no cough, no fever, and no shortness of breath. He was hospitalized 2 weeks ago at [facility]. It is certainly possible that the CXR abnormality is a radiographic lag from recent pneumonia. Clinically, he lacks symptoms of pneumonia. 2. Sickle cell crisis with usual admission for pain in the back, legs and headache. 3. History of tobacco and marijuana use. 4. No significant leukocytosis. RECOMMENDATIONS: 1. Discussed with the patient and RN. Continue present empiric antibiotic. 2. Obtain procalcitonin level. 3. Deep venous thrombosis prophylaxis with heparin. 4. Pain control per PCP. 5. We will follow along with you. Once his pain is controlled, he could be discharged on oral antibiotics. RENA EDOUARD MD DR: REBEKAH/oscar JOB#: [id number] / [id number] SP
[2020-03-26 11:12] VITALS: BP 132/68
--- NOTE | 2020-03-26 11:16 | NUR ---
SW following. Spoke with RN and reviewed chart. Pt is from home. Pt has a hx of multiple hospitalizations r/t sickle cell disease with pain. Pt on room air and IV pain medications. No SW needs per RN. SW attempted to call into pt's room. SW available as needed.
--- NOTE | 2020-03-26 11:38 | PDOC2 ---
CONSULT Date of Consult Date of Consult DATE: 03/26/20 TIME: 11:23 Reason for Consult Reason for Consult: Sickle cell disease vasoocclusive crisis Referring Physician Referring Physician: Dr Herring Identification/Chief Complaint Chief Complaint Generalized pain Problems: (1) Sickle cell anemia with pain (2) Sickle cell disease Source Source: Caregiver, Chart review, Patient History of Present Illness Reason for Visit: Kenji Montesinos is a 24 year old male with sickle cell disease who has been admitted for evaluation and management of sickle cell pain crisis. Patient reports that he follows at [facility] sickle cell clinic. He was recently hospitalized at [facility] and was discharged on 03/20/2020. He reports that after discharge from the hospital, he experience worsening of his pain and therefore came into the emergency room for further evaluation and was admitted for management of pain crisis. I spoke with Geoffrey Crane APRN at [facility] sickle cell clinic. Geoffrey reported to me that the patient was recently hospitalized at [facility]. During his hospital stay, he received fentanyl 100 mcg every 2 hours for pain control. He also received a recent prescription of 20 mg oxycodone to be taken as needed (20 tablets, 0 refills) on 03/20/2020. He had previously been on long-acting opiates and these were discontinued due to the patient requesting opiate prescriptions from multiple different healthcare facilities. Per LAURA at [facility], the patient is prescribed 1500 mg of hydroxyurea daily but it is unclear if the patient takes it given normal MCV. Patient denies fever or chills He denies chest pain or shortness of breath Past Medical History Pulmonary: No pertinent hx ENT: No pertinent hx Family History Family History: High Cholestrol, Hypertension Social History <1 pack per day ALCOHOL: none Drugs: None Current Problem List Problem List Problems Medical Problems: (1) Sickle cell pain crisis Status: Acute Current Medications Current Medications Current Medications Sodium Chloride 1,000 ml @ 1,000 mls/hr 1X ONCE IV Last administered on 03/25/20at 10:41; Start 03/25/20 at 10:30; Stop 03/25/20 at 11:29; Status DC Hydromorphone HCl (Dilaudid) 1 mg 1X ONCE IV Last administered on 03/25/20at 10:41; Start 03/25/20 at 10:45; Stop 03/25/20 at 10:46; Status DC Fentanyl Citrate (Fentanyl 2ml Vial) 100 mcg 1X ONCE IVP Last administered on 03/25/20at 11:39; Start 03/25/20 at 11:30; Stop 03/25/20 at 11:31; Status DC Ceftriaxone Sodium (Rocephin) 1 gm 1X ONCE IVP Last administered on 03/25/20at 11:42; Start 03/25/20 at 11:30; Stop 03/25/20 at 11:31; Status DC Azithromycin 250 ml @ 250 mls/hr 1X ONCE IV ; Start 03/25/20 at 11:30; Stop 03/25/20 at 12:29; Status Cancel Azithromycin 250 ml @ 250 mls/hr 1X ONCE IV Last administered on 03/25/20at 12:06; Start 03/25/20 at 12:00; Stop 03/25/20 at 12:59; Status DC Fentanyl Citrate (Fentanyl 2ml Vial) 100 mcg 1X ONCE IVP Last administered on 03/25/20at 12:56; Start 03/25/20 at 12:45; Stop 03/25/20 at 12:46; Status DC Ondansetron HCl (Zofran) 4 mg PRN Q8HRS PRN IV NAUSEA/VOMITING Last administered on 03/25/20at 15:13; Start 03/25/20 at 13:15; Stop 03/26/20 at 13:14 Morphine Sulfate (Morphine Sulfate) 4 mg PRN Q2HR PRN IV PAIN Last administered on 03/25/20at 17:45; Start 03/25/20 at 13:15; Stop 03/25/20 at 20:21; Status DC Sodium Chloride (Normal Saline Flush) 3 ml QSHIFT PRN IV AFTER MEDS AND BLOOD DRAWS; Start 03/25/20 at 14:30 Sodium Chloride 1,000 ml @ 100 mls/hr Q10H IV Last administered on 03/26/20at 02:21; Start 03/25/20 at 15:00 Ondansetron HCl (Zofran) 4 mg PRN Q4HRS PRN IV NAUSEA/VOMITING; Start 03/25/20 at 14:30 Acetaminophen (Tylenol) 650 mg PRN Q4HRS PRN PO TEMP OVER 100.4F OR MILD PAIN; Start 8/3/20 at 14:30 Acetaminophen (Tylenol Supp) 650 mg PRN Q4HRS PRN HI TEMP OVER 100.4F OR MILD PAIN; Start 03/25/20 at 14:30 Al Hydroxide/Mg Hydroxide (Mylanta Plus Xs) 30 ml PRN DAILY PRN PO HEARTBURN / GAS; Start 03/25/20 at 14:30 Sodium Monofluorophosphate (Fleet Adult) 133 ml PRN DAILY PRN HI CONSTIPATION; Start 03/25/20 at 14:30 Docusate Sodium (Colace) 100 mg PRN BID PRN PO HARD STOOLS; Start 03/25/20 at 14:30 Albuterol Sulfate (Ventolin Neb Soln) 2.5 mg PRN Q4HRS PRN NEB SHORTNESS OF BREATH; Start 03/25/20 at 14:30 Guaifenesin (Robitussin) 200 mg PRN Q4HRS PRN PO COUGH; Start 03/25/20 at 14:30 Lorazepam (Ativan) 0.5 mg PRN Q4HRS PRN PO ANXIETY / AGITATION Last administe red on 03/26/20at 08:16; Start 03/25/20 at 14:30 Acetaminophen/ Hydrocodone Bitart (Lortab 5/325) 1 tab PRN Q6HRS PRN PO MODERATE PAIN; Start 03/25/20 at 14:30; Stop 03/25/20 at 20:21; Status DC Lactulose (Lactulose) 20 gm PRN DAILY PRN PO CONSTIPATION; Start 03/25/20 at 14:30 Lidocaine/ Prilocaine (Emla) 30 philipp PRN Q8HRS PRN TP PAIN; Start 03/25/20 at 14:30 Ondansetron HCl (Zofran Odt) 4 mg PRN Q6HRS PRN PO NAUSEA/VOMITING; Start 03/25/20 at 14:30 Azithromycin 250 ml @ 250 mls/hr 1X IV ; Start 03/26/20 at 14:30; Status UNV Ceftriaxone Sodium (Rocephin) 1 gm Q24H IVP ; Start 03/26/20 at 12:00 Acetaminophen/ Hydrocodone Bitart (Lortab 5/325) 2 tab PRN Q6HRS PRN PO SEVERE PAIN Last administered on 03/25/20at 16:35; Start 8/3/20 at 14:30; Stop 03/25/20 at 20:21; Status DC Azithromycin 500 mg/Sodium Chloride 250 ml @ 250 mls/hr Q24H IV ; Start 03/26/20 at 12:00; Stop 03/29/20 at 12:59 Heparin Sodium (Porcine) (Heparin Sodium) 5,000 unit Q8HRS SQ Last administered on 03/25/20at 22:55; Start 03/25/20 at 22:00 Fentanyl Citrate (Fentanyl 2ml Vial) 75 mcg PRN Q6HRS PRN IVP SEVERE PAIN 7-10 Last administered on 03/25/20at 20:25; Start 03/25/20 at 20:15; Stop 03/25/20 at 23:21; Status DC Ketorolac Tromethamine (Toradol 30mg Vial) 30 mg PRN Q6HRS PRN IVP MODERATE PAIN 4-6 Last administered on 03/26/20at 09:24; Start 03/25/20 at 20:15; Stop 03/27/20 at 20:14 Oxycodone HCl (Roxicodone) 20 mg PRN Q4HRS PRN PO SEVERE PAIN 7-10 Last administered on 03/26/20at 03:52; Start 03/25/20 at 20:15 Fentanyl Citrate (Fentanyl 2ml Vial) 75 mcg PRN Q4HRS PRN IVP SEVERE PAIN 7-10 Last administered on 03/26/20at 08:32; Start 03/25/20 at 23:30 Lactobacillus Rhamnosus (Culturelle) 1 cap BID PO ; Start 03/26/20 at 21:00 Active Scripts Active Zofran (Ondansetron Hcl) 4 Mg Tablet 1 Tab PO Q6HRS PRN 4 Days Lidocaine-Prilocaine Cream (Lidocaine/Prilocaine) 30 Gm Cream..g. 30 Gm TP Q8HRS PRN Reported Oxycodone Hcl Immed.release (Oxycodone Hcl) 10 Mg Tablet 2 Tab PO Q4HRS PRN MDD 4 Tablet(s) 30 Days Allergies Allergies: Coded Allergies: No Known Drug Allergies (Unverified , 11/06/17) ROS General: No: Chills, Night Sweats PSYCHOLOGICAL ROS: No: Anxiety, Behavioral Disorder Eyes: No Blurry vision, No Decreased vision HEENT: No: Heacaches, Visual Changes, Oral lesions ALLERGY AND IMMUNOLOGY: No: Nasal Congestion Hematological and Lymphatic: No: Bleeding Problems, Blood Clots ENDOCRINE: No: Palpitations, Polydipsia/polyuria Respiratory: No: Cough, Hemoptysis Cardiovascular: No Chest Pain, No Palpitations Gastrointestinal: No Nausea, No Vomiting Genitourinary: No Dysuria, No Frequency Musculoskeletal: Yes Joint Pain (Polyarthralgia secondary to sickle cell disease pain crisis); No Gait Disturbance Neurological: No Behavorial Changes, No Bowel/Bladder ControlChng Skin: No Dry Skin, No Rash Physical Exam General: Alert, Oriented X3, mild distress HEENT: Atraumatic, PERRLA Lungs: Clear to auscultation Heart: Regular rate, Normal S1, Normal S2 Abdomen: Normal bowel sounds, Soft, No tenderness Extremities: No clubbing Skin: No rashes Neuro: Normal speech Psych/Mental Status: Mental status NL MUSCULOSKELETAL: No joint tenderness Vitals VITALS Vital Signs Date Time Temp Pulse Resp B/P (MAP) Pulse Ox O2 Delivery O2 Flow Rate FiO2 03/26/20 11:12 99.8 62 16 132/68 (89) 97 Room Air 99.8 Labs Labs Laboratory Tests Test 03/25/20 10:34 White Blood Count 8.2 x10^3/uL (4.0-11.0) Red Blood Count 3.26 x10^6/uL (4.30-5.70) Hemoglobin 9.5 g/dL (13.0-17.5) Hematocrit 26.4 % (39.0-53.0) Mean Corpuscular Volume 83 fL (79-100) Mean Corpuscular Hemoglobin 30 pg (25-35) Mean Corpuscular Hemoglobin Concent 36 g/dL (31-37) Red Cell Distribution Width 24.7 % (11.5-14.5) Platelet Count 459 x10^3/uL (140-400) Neutrophils (%) (Auto) 57 % (31-73) Lymphocytes (%) (Auto) 32 % (24-48) Monocytes (%) (Auto) 9 % (0-9) Eosinophils (%) (Auto) 1 % (0-3) Basophils (%) (Auto) 1 % (0-3) Neutrophils # (Auto) 4.7 x10^3/uL (1.8-7.7) Lymphocytes # (Auto) 2.6 x10^3/uL (1.0-4.8) Monocytes # (Auto) 0.7 x10^3/uL (0.0-1.1) Eosinophils # (Auto) 0.1 x10^3/uL (0.0-0.7) Basophils # (Auto) 0.1 x10^3/uL (0.0-0.2) Platelet Estimate Increased (ADEQUATE) Large Platelets Few Giant Platelets Few Polychromasia Present Hypochromasia Slight Poikilocytosis Marked Anisocytosis Mod Spherocytes Occ Sickle Cells Present Target Cells Present Tear Drop Cells Few Ovalocytes Few Schistocytes Few Absolute Reticulocyte Count 0.113 x10^6/uL (0.020-0.120) Percent Reticulocyte Count 3.5 % (0.5-2.3) Immature Reticulocyte Fraction 0.68 (0.20-0.60) Lactate Dehydrogenase 680 U/L (85-227) Images Images Reviewed chest x-ray Assessment/Plan Assessment/Plan Assessment: Sickle cell disease with vaso-occlusive pain crisis Acute on chronic pain, secondary to sickle cell disease Recommendations: -Continue with pain control per hospitalist service. Pain regimen effective at [facility] per patient's primary sickle cell disease provider was 100 mcg fentanyl every 2 hours as needed -Continue with IV hydration with maintenance fluids -Encourage bowel regimen given opiate use -Transfuse for symptomatic anemia if Hb<7 given concern for iron overload in patients with sickle cell anemia -Monitor CBC, retic and LDH -Monitor O2 needs -Do not think he has been compliant with hydroxyurea given normal MCV. Will be deferring to primary outpatient sickle cell provider. -Follow-up with [facility] sickle cell disease clinic at the time of discharge for further outpatient care Thank you for the consult Willie Maciel MD Medical Oncology/Hematology Ph: [phone] PETRONA MACIEL MD Mar 26, 2020 11:38
--- NOTE | 2020-03-26 11:58 | PDOC ---
[employer] PROGRESS NOTE Date of Service DOS: DATE: 03/26/20 TIME: 11:53 Chief Complaint Chief Complaint Sickle cell pain crisis Anemia History of Present Illness History of Present Illness 03/26/2020 Patient seen and examined Resting in bed, NAD Chart reviewed Discussed with RN Vitals/I&O Vitals/I&O: Vital Signs Date Time Temp Pulse Resp B/P (MAP) Pulse Ox O2 Delivery O2 Flow Rate FiO2 03/26/20 11:12 99.8 62 16 132/68 (89) 97 Room Air 99.8 I & O 03/25/20 03/25/20 03/26/20 15:00 23:00 07:00 Intake Total 1250 ml 800 ml 800 ml Output Total 1525 ml 700 ml Balance 1250 ml -725 ml 100 ml Physical Exam General: No acute distress Heart: Regular rate, Normal S1, Normal S2 Lungs: Clear Abdomen: Normal bowel sounds, Soft Extremities: No cyanosis, No edema Skin: No rashes, No breakdown, No significant lesion Review of Systems Review of Systems: Pertinent as per HPI, otherwise 10 point review of systems is negative Assessment and Plan Assessmemt and Plan Problems Medical Problems: (1) Sickle cell pain crisis Status: Acute ASSESSMENT Sickle cell pain crisis Anemia PLAN Continue current care Pain management Appreciate subspecialist input Trend labs Daily reticulocyte count Home meds Full code Comment Review of Relevant I have reviewed the following items misty (where applicable) has been applied. Medications: Current Medications Medications (Trade) Dose Ordered Sig/Glenis Route PRN Reason Start Time Stop Time Status Last Admin Dose Admin Azithromycin 250 ml @ 250 mls/hr 1X ONCE IV 03/25/20 12:00 03/25/20 12:59 DC 03/25/20 12:06 Fentanyl Citrate (Fentanyl 2ml Vial) 100 mcg 1X ONCE IVP 03/25/20 12:45 03/25/20 12:46 DC 03/25/20 12:56 Ondansetron HCl (Zofran) 4 mg PRN Q8HRS PRN IV NAUSEA/VOMITING 03/25/20 13:15 03/26/20 13:14 03/25/20 15:13 Morphine Sulfate (Morphine Sulfate) 4 mg PRN Q2HR PRN IV PAIN 03/25/20 13:15 03/25/20 20:21 DC 03/25/20 17:45 Sodium Chloride 1,000 ml @ 100 mls/hr Q10H IV 03/25/20 15:00 03/26/20 02:21 Lorazepam (Ativan) 0.5 mg PRN Q4HRS PRN PO ANXIETY / AGITATION 03/25/20 14:30 03/26/20 08:16 Acetaminophen/ Hydrocodone Bitart (Lortab 5/325) 2 tab PRN Q6HRS PRN PO SEVERE PAIN 03/25/20 14:30 03/25/20 20:21 DC 03/25/20 16:35 Heparin Sodium (Porcine) (Heparin Sodium) 5,000 unit Q8HRS SQ 03/25/20 22:00 03/25/20 22:55 Fentanyl Citrate (Fentanyl 2ml Vial) 75 mcg PRN Q6HRS PRN IVP SEVERE PAIN 7-10 03/25/20 20:15 03/25/20 23:21 DC 03/25/20 20:25 Ketorolac Tromethamine (Toradol 30mg Vial) 30 mg PRN Q6HRS PRN IVP MODERATE PAIN 4-6 03/25/20 20:15 03/27/20 20:14 03/26/20 09:24 Oxycodone HCl (Roxicodone) 20 mg PRN Q4HRS PRN PO SEVERE PAIN 7-10 03/25/20 20:15 03/26/20 03:52 Fentanyl Citrate (Fentanyl 2ml Vial) 75 mcg PRN Q4HRS PRN IVP SEVERE PAIN 7-10 03/25/20 23:30 03/26/20 08:32 Justicifation of Admission Dx: Justifications for Admission: Justification of Admission Dx: Yes (pneumonia with sickle pain crisis) Aspiration Pneumonia: Hemodynamic Instability Sepsis: Dehydration Angina: Cresendo Worsening of Sym FELI YEUNG III DO Mar 26, 2020 11:58
[2020-03-26] MEDS ORDERED: cefTRIAXone IV Push 1 GM VIAL. IVP SCH (12:00)
[2020-03-26] MEDS ORDERED: AZITHROMYCIN 500 MG in IV NORMAL SALINE 250ML 250 ML IV SCH (12:00)
[2020-03-26 13:13] LABS: CALCIUM 9.1 mg/dL (8.5-10.1); CREATININE 0.6 mg/dL (0.7-1.3); GFR 203.9; POTASSIUM 3.9 mmol/L (3.5-5.1)
[2020-03-26] MEDS ORDERED: AZITHRMYCN 500MG IVPB FOR OMNI 250 ML IV SCH (14:30)
[2020-03-26 15:13] VITALS: BP 134/77
[2020-03-26 18:26] LABS: BASO % 0 % (0-3); EOS % 0 % (0-3); HEMATOCRIT 25.1 % (39.0-53.0); HEMOGLOBIN 8.8 g/dL (13.0-17.5); LYMPH % 18 % (24-48); MEAN CORPUSCULAR HEMOGLOBIN 29 pg (25-35); MEAN CORPUSCULAR HGB CONC 35 g/dL (31-37); MEAN CORPUSCULAR VOLUME 83 fL (79-100); MONO # 1.3 x10^3/uL (0.0-1.1); MONO % 12 % (0-9); NEUT # 7.6 x10^3/uL (1.8-7.7); NEUT % 70 % (31-73); PLATELET COUNT 408 x10^3/uL (140-400); RED BLOOD COUNT 3.01 x10^6/uL (4.30-5.70); RED CELL DISTRIBUTION WIDTH 24.2 % (11.5-14.5); WHITE BLOOD COUNT 10.9 x10^3/uL (4.0-11.0)
[2020-03-26] MEDS ORDERED: IV 1/2 NORMAL SALINE 1,000 ML IV ONE (20:00)
[2020-03-26] MEDS: LACTOBACILLUS RHAMNOSUS GG 1 CAPSULE. PO SCH (20:37)
[2020-03-26 21:00] VITALS: BP 127/73
[2020-03-26 23:50] VITALS: BP 137/80
[2020-03-27] MEDS: oxyCODONE IR 5 MG TABLET PO PRN ×2 (01:40→06:45)
[2020-03-27 03:15] VITALS: BP 122/75
[2020-03-27] MEDS: fentaNYL PF VIAL 100 MCG/2 ML VIAL IVP PRN ×2 (04:04→08:34)
[2020-03-27] MEDS: KETOROLAC 30 MG/ML VIAL. IVP PRN ×2 (04:04→10:22)
[2020-03-27] MEDS: HEPARIN for SUB-Q USE 5,000 UNIT/ML VIAL. SQ SCH (05:31)
[2020-03-27 07:00] VITALS: BP 129/76
[2020-03-27] MEDS: LACTOBACILLUS RHAMNOSUS GG 1 CAPSULE. PO SCH (10:17)
[2020-03-27] MEDS: IV NORMAL SALINE 1000ML BAG 1,000 ML IV SCH (10:23)
--- NOTE | 2020-03-27 10:58 | PDOC ---
[employer] PROGRESS NOTE Date of Service DOS: DATE: 03/27/20 TIME: 10:54 Chief Complaint Chief Complaint Sickle cell pain crisis Anemia History of Present Illness History of Present Illness 03/27/2020 Patient seen and examined Laying in bed, NAD Discussed plan for pain management and follow-up with rand cementer at [place] Chart reviewed Discussed with RN 03/26/2020 Patient seen and examined Resting in bed, NAD Chart reviewed Discussed with RN Vitals/I&O Vitals/I&O: Vital Signs Date Time Temp Pulse Resp B/P (MAP) Pulse Ox O2 Delivery O2 Flow Rate FiO2 03/27/20 08:30 Room Air 03/27/20 07:00 97.8 89 18 129/76 (93) 97 97.8 I & O 03/26/20 03/26/20 03/27/20 15:00 23:00 07:00 Intake Total 1750 ml 720 ml Output Total 1450 ml 650 ml 900 ml Balance 300 ml -650 ml -180 ml Physical Exam General: Alert, Oriented X3, No acute distress Heart: Regular rate, Normal S1, Normal S2 Lungs: Clear Abdomen: Normal bowel sounds, Soft, No tenderness Extremities: No clubbing, No cyanosis Skin: No rashes, No significant lesion Labs Labs: Laboratory Tests Test 03/26/20 12:30 03/26/20 17:40 Sodium Level 136 mmol/L (136-145) Potassium Level 3.9 mmol/L (3.5-5.1) Chloride Level 101 mmol/L (98-107) Carbon Dioxide Level 25 mmol/L (21-32) Anion Gap 10 (6-14) Blood Urea Nitrogen 5 mg/dL (8-26) Creatinine 0.6 mg/dL (0.7-1.3) Estimated GFR (Cockcroft-Gault) 203.9 Glucose Level 95 mg/dL (70-99) Calcium Level 9.1 mg/dL (8.5-10.1) Procalcitonin 0.12 ng/mL (0.00-0.10) White Blood Count 10.9 x10^3/uL (4.0-11.0) Red Blood Count 2.99 x10^6/uL (4.30-5.70) Hemoglobin 8.8 g/dL (13.0-17.5) Hematocrit 25.1 % (39.0-53.0) Mean Corpuscular Volume 83 fL (79-100) Mean Corpuscular Hemoglobin 29 pg (25-35) Mean Corpuscular Hemoglobin Concent 35 g/dL (31-37) Red Cell Distribution Width 24.2 % (11.5-14.5) Platelet Count 408 x10^3/uL (140-400) Neutrophils (%) (Auto) 70 % (31-73) Lymphocytes (%) (Auto) 18 % (24-48) Monocytes (%) (Auto) 12 % (0-9) Eosinophils (%) (Auto) 0 % (0-3) Basophils (%) (Auto) 0 % (0-3) Neutrophils # (Auto) 7.6 x10^3/uL (1.8-7.7) Lymphocytes # (Auto) 2.0 x10^3/uL (1.0-4.8) Monocytes # (Auto) 1.3 x10^3/uL (0.0-1.1) Eosinophils # (Auto) 0.0 x10^3/uL (0.0-0.7) Basophils # (Auto) 0.0 x10^3/uL (0.0-0.2) Absolute Reticulocyte Count 0.105 x10^6/uL (0.020-0.120) Percent Reticulocyte Count 3.5 % (0.5-2.3) Immature Reticulocyte Fraction 0.65 (0.20-0.60) Review of Systems Review of Systems: Pertinent as per HPI, otherwise 10 point review of systems is negative. Assessment and Plan Assessmemt and Plan Problems Medical Problems: (1) Sickle cell pain crisis Status: Acute ASSESSMENT Sickle cell pain crisis, improved Anemia PLAN Home meds Follow-up with rand cementer at [facility] Patient appears at baseline Full code Discharge Comment Review of Relevant I have reviewed the following items misty (where applicable) has been applied. Medications: Current Medications Medications (Trade) Dose Ordered Sig/Glenis Route PRN Reason Start Time Stop Time Status Last Admin Dose Admin Ceftriaxone Sodium (Rocephin) 1 gm Q24H IVP 03/26/20 12:00 03/26/20 13:19 Azithromycin 500 mg/Sodium Chloride 250 ml @ 250 mls/hr Q24H IV 03/26/20 12:00 8/7/20 12:59 03/26/20 13:19 Lactobacillus Rhamnosus (Culturelle) 1 cap BID PO 03/26/20 21:00 03/27/20 10:17 Justicifation of Admission Dx: Justifications for Admission: Justification of Admission Dx: Yes (pneumonia with sickle pain crisis) Aspiration Pneumonia: Hemodynamic Instability Sepsis: Dehydration Angina: Cresendo Worsening of Sym FELI YEUNG III DO Mar 27, 2020 10:58
--- NOTE | 2020-03-27 11:03 | PDOC ---
PULMONARY PROGRESS NOTES DATE: 03/27/20 TIME: 11:02 Subjective no soa on RA Vitals Vital Signs Date Time Temp Pulse Resp B/P (MAP) Pulse Ox O2 Delivery O2 Flow Rate FiO2 03/27/20 08:30 Room Air 03/27/20 07:00 97.8 89 18 129/76 (93) 97 97.8 General: No acute distress Lungs: Clear Cardiovascular: S1 Abdomen: Soft Extremities: No Edema Skin: Warm Labs Laboratory Tests Test 03/26/20 12:30 03/26/20 17:40 Sodium Level 136 mmol/L (136-145) Potassium Level 3.9 mmol/L (3.5-5.1) Chloride Level 101 mmol/L (98-107) Carbon Dioxide Level 25 mmol/L (21-32) Anion Gap 10 (6-14) Blood Urea Nitrogen 5 mg/dL (8-26) Creatinine 0.6 mg/dL (0.7-1.3) Estimated GFR (Cockcroft-Gault) 203.9 Glucose Level 95 mg/dL (70-99) Calcium Level 9.1 mg/dL (8.5-10.1) Procalcitonin 0.12 ng/mL (0.00-0.10) White Blood Count 10.9 x10^3/uL (4.0-11.0) Red Blood Count 2.99 x10^6/uL (4.30-5.70) Hemoglobin 8.8 g/dL (13.0-17.5) Hematocrit 25.1 % (39.0-53.0) Mean Corpuscular Volume 83 fL (79-100) Mean Corpuscular Hemoglobin 29 pg (25-35) Mean Corpuscular Hemoglobin Concent 35 g/dL (31-37) Red Cell Distribution Width 24.2 % (11.5-14.5) Platelet Count 408 x10^3/uL (140-400) Neutrophils (%) (Auto) 70 % (31-73) Lymphocytes (%) (Auto) 18 % (24-48) Monocytes (%) (Auto) 12 % (0-9) Eosinophils (%) (Auto) 0 % (0-3) Basophils (%) (Auto) 0 % (0-3) Neutrophils # (Auto) 7.6 x10^3/uL (1.8-7.7) Lymphocytes # (Auto) 2.0 x10^3/uL (1.0-4.8) Monocytes # (Auto) 1.3 x10^3/uL (0.0-1.1) Eosinophils # (Auto) 0.0 x10^3/uL (0.0-0.7) Basophils # (Auto) 0.0 x10^3/uL (0.0-0.2) Absolute Reticulocyte Count 0.105 x10^6/uL (0.020-0.120) Percent Reticulocyte Count 3.5 % (0.5-2.3) Immature Reticulocyte Fraction 0.65 (0.20-0.60) Laboratory Tests Test 03/26/20 12:30 03/26/20 17:40 Sodium Level 136 mmol/L (136-145) Potassium Level 3.9 mmol/L (3.5-5.1) Chloride Level 101 mmol/L (98-107) Carbon Dioxide Level 25 mmol/L (21-32) Anion Gap 10 (6-14) Blood Urea Nitrogen 5 mg/dL (8-26) Creatinine 0.6 mg/dL (0.7-1.3) Estimated GFR (Cockcroft-Gault) 203.9 Glucose Level 95 mg/dL (70-99) Calcium Level 9.1 mg/dL (8.5-10.1) Procalcitonin 0.12 ng/mL (0.00-0.10) White Blood Count 10.9 x10^3/uL (4.0-11.0) Red Blood Count 2.99 x10^6/uL (4.30-5.70) Hemoglobin 8.8 g/dL (13.0-17.5) Hematocrit 25.1 % (39.0-53.0) Mean Corpuscular Volume 83 fL (79-100) Mean Corpuscular Hemoglobin 29 pg (25-35) Mean Corpuscular Hemoglobin Concent 35 g/dL (31-37) Red Cell Distribution Width 24.2 % (11.5-14.5) Platelet Count 408 x10^3/uL (140-400) Neutrophils (%) (Auto) 70 % (31-73) Lymphocytes (%) (Auto) 18 % (24-48) Monocytes (%) (Auto) 12 % (0-9) Eosinophils (%) (Auto) 0 % (0-3) Basophils (%) (Auto) 0 % (0-3) Neutrophils # (Auto) 7.6 x10^3/uL (1.8-7.7) Lymphocytes # (Auto) 2.0 x10^3/uL (1.0-4.8) Monocytes # (Auto) 1.3 x10^3/uL (0.0-1.1) Eosinophils # (Auto) 0.0 x10^3/uL (0.0-0.7) Basophils # (Auto) 0.0 x10^3/uL (0.0-0.2) Absolute Reticulocyte Count 0.105 x10^6/uL (0.020-0.120) Percent Reticulocyte Count 3.5 % (0.5-2.3) Immature Reticulocyte Fraction 0.65 (0.20-0.60) Medications Active Scripts Medications Dose Route/Sig Max Daily Dose Days Date Category Oxycodone Hcl Immed.release (Oxycodone Hcl) 10 Mg Tablet 2 Tab PO Q4HRS PRN MDD 4 Tablet(s) 30 03/26/20 Reported Zofran (Ondansetron Hcl) 4 Mg Tablet 1 Tab PO Q6HRS PRN 4 07/31/19 Rx Lidocaine-Prilocaine Cream (Lidocaine/Prilocaine) 30 Gm Cream..g. 30 Gm TP Q8HRS PRN 12/16/18 Rx Impression . 1. Abnormal chest x-ray with right lower lobe infiltrate. He has no cough, no fever, and no shortness of breath. He was hospitalized 2 weeks ago at [facility]. It is certainly possible that the CXR abnormality is a radiographic lag from recent pneumonia. Clinically, he lacks symptoms of pneumonia. 2. Sickle cell crisis with usual admission for pain in the back, legs and headache. 3. History of tobacco and marijuana use. 4. No significant leukocytosis. Plan . 1. Discussed with the patient and RN. Continue present empiric antibiotic. 2. procalcitonin level 0.1 3. Deep venous thrombosis prophylaxis with heparin. 4. Pain control per PCP. 5. We will follow along with you. Once his pain is controlled, he could be discharged on oral antibiotics. RENA EDOUARD MD Mar 27, 2020 11:03
--- NOTE | 2020-03-27 11:24 | DS ---
DATE OF DISCHARGE: 03/27/2020 ADMISSION DIAGNOSES: Sickle cell crisis and pneumonia. DISCHARGE DIAGNOSES: Resolving pneumonia, resolving sickle cell crisis. HOSPITAL COURSE: The patient is a pleasant 24-year-old male, who presented with sickle cell crisis and pneumonia. We gave him IV antibiotics, checking for COVID-19. We checked retic counts; they are down to 3.5%. We did pain management, gave him lots of fluids and oxygen and vitamins. Basically, today, I saw him and examined he is at his baseline. Heart tones are normal. Lungs are clear. We plan to discharge home. DISPOSITION: Home. ACTIVITY: As tolerated. DIET: Low sodium. MEDICATIONS: Please see MRAD. TOTAL TIME: 34 minutes. FELI YEUNG DO DR: JHONNY/oscar JOB#: [id number] / [id number]
[2020-03-27 11:30] VITALS: BP 121/73
--- NOTE | 2020-03-27 11:55 | NUR ---
Pt left unit at 1155 by wheelchair via private vehicle with fiance. Pt's IV removed without complications, VSS. Discharge instructions discussed with pt in depth, including COVID instructions. Pt verbalized understanding with no additional questions.
--- NOTE | 2020-03-27 17:22 | NUR ---
Pt discharged home today self-care with no SW needs at discharge per chart review.
== END 2020-03-27 11:55 | disposition home or self-care (01) | DRG 811 ==
LOC: ER 09:54 → 4 NORTH 13:00 → 6 SOUTH 15:10
PROVIDERS: ADMIT Family Medicine; ATTEND Family Medicine
DX: D57.00 Hb-SS disease with crisis, unspecified (principal); J18.9 Pneumonia, unspecified organism; E86.0 Dehydration; Z20.828 Contact with and (suspected) exposure to other viral communicable diseases; F17.210 Nicotine dependence, cigarettes, uncomplicated; F12.90 Cannabis use, unspecified, uncomplicated; G89.29 Other chronic pain; I20.9 Angina pectoris, unspecified; Z11.59 Encounter for screening for other viral diseases; Z82.49 Family history of ischemic heart disease and other diseases of the circulatory system; Z82.5 Family history of asthma and other chronic lower respiratory diseases; Z87.01 Personal history of pneumonia (recurrent)
CPT/HCPCS: 36415; 71046; 80048; 83615; 84145; 85025; 85045; 86850; 86900; 86901; 87040; 96361; 96365; 96375; 96376; 99285; J0456; J0696; J1170; J1644; J1885; J2270; J2405; J3010; J7030; J7050; G0378; U0003-CS

== ENCOUNTER 2020-04-09 18:43 | Emergency (ER) | payer BC, MEDICARE ==
[~2020-04-09] VITALS: Ht 175.3 cm; Wt 77.3 kg
[2020-04-09 18:53] VITALS: BP 121/73
--- NOTE | 2020-04-09 19:13 | PHYS DOC ---
Past Medical History Past Medical History: Sickle Cell Disease, Vascular Disease Additional Past Medical Histor: AVASCULAR NECROSIS OF R HIP Past Surgical History: Other Additional Past Surgical Histo: L HIP BONE GRAFT Smoking Status: Current Some Day Smoker Alcohol Use: Rarely Drug Use: Marijuana General Adult EDM: Chief Complaint: OTHER COMPLAINTS HPI: HPI: Patient is a 24 year old male who presents with acute pain crisis. Patient reports that he has had pain for the last 3 days. He does have medication at home but ran out and went to see his doctor today to have it refilled. For whatever reason that did not happen and he is here today for pain control. He reports that the pain is in his middle of the back in the thoracic and lumbar area as well as both upper extremities and both thighs. He reports it as sharp and achy, nonradiating and constant. Usually he is able to control his pain with his prescribed oxycodone and reports that he has been taking his hydroxyurea on a regular basis. He also states that he sees his reamer hand weekly. Patient stated he wanted to go home if he could as he has to work a 12- hour shift tomorrow. Patient also stated that he would be able to get his pain medication tomorrow. Review of Systems: Review of Systems: Constitutional: Denies fever or chills. [] Eyes: Denies change in visual acuity. [] HENT: Denies nasal congestion or sore throat. [] Respiratory: Denies cough or shortness of breath. [] Cardiovascular: Denies chest pain or edema. [] GI: Denies abdominal pain, nausea, vomiting, bloody stools or diarrhea. [] : Denies dysuria. [] Musculoskeletal: See HPI. [] Integument: Denies rash. [] Neurologic: Denies headache, focal weakness or sensory changes. [] Endocrine: Denies polyuria or polydipsia. [] Lymphatic: Denies swollen glands. [] Psychiatric: Denies depression or anxiety. [] Heart Score: Risk Factors: Risk Factors: DM, Current or recent (<one month) smoker, HTN, HLP, family history of CAD, obesity. Risk Scores: Score 0 - 3: 2.5% MACE over next 6 weeks - Discharge Home Score 4 - 6: 20.3% MACE over next 6 weeks - Admit for Clinical Observation Score 7 - 10: 72.7% MACE over next 6 weeks - Early Invasive Strategies Allergies: Allergies: Allergies Coded Allergies Type Severity Reaction Last Updated Verified No Known Drug Allergies 11/06/17 No Physical Exam: PE: Constitutional: Well developed, well nourished, mild pain distress, non-toxic appearance. [] HENT: Normocephalic, atraumatic, bilateral external ears normal, oropharynx moist, no oral exudates, nose normal. [] Eyes: PERRLA, EOMI, conjunctiva normal, no discharge. [] Neck: Normal range of motion, no tenderness, supple, no stridor. [] Cardiovascular:Heart rate regular rhythm, no murmur [] Lungs & Thorax: Bilateral breath sounds clear to auscultation [] Abdomen: Bowel sounds normal, soft, no tenderness, no masses, no pulsatile masses. [] Skin: Warm, dry, no erythema, no rash. [] Back: Tenderness diffusely along the thoracic and lumbar spine, no CVA tenderness. [] Extremities: Extremities are tender to palpation without deformity, calor or erythema, no cyanosis, no clubbing, ROM intact, no edema. [] Neurologic: Alert and oriented X 3, normal motor function, normal sensory function, no focal deficits noted. [] Psychologic: Affect normal, judgement normal, mood normal. [] Current Patient Data: Vital Signs: Vital Signs Date Time Temp Pulse Resp B/P (MAP) Pulse Ox O2 Delivery O2 Flow Rate FiO2 04/09/20 18:53 98.8 121/73 (89) 98.8 EKG: EKG: [] Radiology/Procedures: Radiology/Procedures: [] Course & Med Decision Making: Course & Med Decision Making Pertinent Labs and Imaging studies reviewed. (See chart for details) 2009-patient was seen and reevaluated. I reviewed his laboratory data. His hemoglobin actually is a bit higher than it has been and he is retaking appropriately. At this time he has done well with of medications delivered here in the emergency department. Since he has adequate pain control I think he is stable for discharge home. I will give him some oxycodone IR until he can get some of his own medication. I will not write a prescription form at this time since he will be able to get it in the morning. [] Dragon Disclaimer: Dragon Disclaimer: This electronic medical record was generated, in whole or in part, using a voice recognition dictation system. Departure Departure Impression: Primary Impression: Sickle cell anemia with pain Disposition: 01 HOME, SELF-CARE Condition: IMPROVED Referrals: UNKNOWN PCP NAME (PCP) Patient Instructions: Sickle Cell Pain Crisis, [id number] Additional Instructions: Follow-up with your reamer hand as planned. Justicifation of Admission Dx: Justifications for Admission: Justification of Admission Dx: N/A Aspiration Pneumonia: Hemodynamic Instability Sepsis: Dehydration Angina: Cresendo Worsening of Sym KENNETH CORTEZ MD Apr 09, 2020 19:13
[2020-04-09] MEDS ORDERED: IV NORMAL SALINE 1000ML BAG 1,000 ML IV ONE (19:15)
[2020-04-09] MEDS ORDERED: HYDROmorphone 2 MG/ML VIAL IV ONE (19:15)
[2020-04-09] MEDS ORDERED: ONDANSETRON PF 4 MG/2 ML VIAL. IVP ONE (19:15)
[2020-04-09 19:23] LABS: BASO # 0.2 x10^3/uL (0.0-0.2); BASO % 2 % (0-3); EOS # 0.1 x10^3/uL (0.0-0.7); EOS % 1 % (0-3); HEMATOCRIT 29.9 % (39.0-53.0); HEMOGLOBIN 10.3 g/dL (13.0-17.5); LYMPH # 2.2 x10^3/uL (1.0-4.8); LYMPH % 21 % (24-48); MEAN CORPUSCULAR HEMOGLOBIN 29 pg (25-35); MEAN CORPUSCULAR HGB CONC 35 g/dL (31-37); MEAN CORPUSCULAR VOLUME 83 fL (79-100); MONO # 0.8 x10^3/uL (0.0-1.1); MONO % 8 % (0-9); NEUT # 7.1 x10^3/uL (1.8-7.7); NEUT % 69 % (31-73); PLATELET COUNT 581 x10^3/uL (140-400); RED BLOOD COUNT 3.59 x10^6/uL (4.30-5.70); RED CELL DISTRIBUTION WIDTH 24.4 % (11.5-14.5); WHITE BLOOD COUNT 10.3 x10^3/uL (4.0-11.0)
[2020-04-09 19:32] LABS: CALCIUM 8.8 mg/dL (8.5-10.1); CREATININE 0.7 mg/dL (0.7-1.3); GFR 170.6; POTASSIUM 3.8 mmol/L (3.5-5.1)
[2020-04-09 19:45] LABS: ANISOCYTOSIS MOD; PLT ESTIMATE INCREASED (ADEQUATE); POIKILOCYTOSIS MARKED
[2020-04-09 19:46] LABS: OVALOCYTES PRESENT; SCHISTOCYTES FEW; SICKLE CELLS PRESENT; TARGET CELLS PRESENT
[2020-04-09] MEDS ORDERED: oxyCODONE IR 5 MG TABLET PO ONE (20:15)
== END 2020-04-09 20:32 | disposition home or self-care (01) ==
LOC: ER 18:43
DX: D57.00 Hb-SS disease with crisis, unspecified (principal); M54.5 Low back pain; M54.6 Pain in thoracic spine; M79.601 Pain in right arm; M79.602 Pain in left arm; M79.652 Pain in left thigh; M79.651 Pain in right thigh; F17.200 Nicotine dependence, unspecified, uncomplicated
CPT/HCPCS: 36415; 80048; 85025; 85045; 96361; 96374; 96375; 99284; J1170; J2405; J7030

== ENCOUNTER 2020-04-17 00:36 | Emergency (ER) | payer BC, MEDICARE ==
[~2020-04-17] VITALS: Ht 175.3 cm; Wt 77.2 kg
[2020-04-17] MEDS ORDERED: IV RINGERS,LACTATED 1000ML 1,000 ML IV ONE (01:30)
--- NOTE | 2020-04-17 01:36 | PHYS DOC ---
Past Medical History Past Medical History: Sickle Cell Disease, Vascular Disease Additional Past Medical Histor: AVASCULAR NECROSIS OF R HIP Past Surgical History: Other Additional Past Surgical Histo: L HIP BONE GRAFT Smoking Status: Current Every Day Smoker Alcohol Use: Rarely Drug Use: Marijuana General Adult EDM: Chief Complaint: LOWER EXT PAIN HPI: HPI: The history was obtained from the patient. Patient is a 24-year-old male with PMH sickle cell anemia who presents with a chief complaint of pain. He states he has pain in his lower back, legs bilaterally, and arms bilaterally. He states this is typical of his sickle cell pain crises. He notes that he does take hydroxyurea and folate daily. He states he was last seen in emergency department on April 09. He states that he did have his home oxycodone refilled yesterday by his tool design drafter however the electronic signature required verif ication. He states that his tool design drafter states that his medication should be available this afternoon. He denies any chest pain, cough, fevers, or shortness of breath. He does note a history of acute chest syndrome and states this does not feel similar. Denies history of avascular necrosis right hip but states he has had no increased pain to this right hip and this was diagnosed years ago. Denies any syncope. Has not tried anything at home for relief. No other complaints. Review of Systems: Review of Systems: Constitutional: Denies fever or chills. [] Eyes: Denies change in visual acuity. [] HENT: Denies nasal congestion or sore throat. [] Respiratory: Denies cough or shortness of breath. [] Cardiovascular: Denies chest pain or edema. [] GI: Denies abdominal pain, nausea, vomiting, bloody stools or diarrhea. [] : Denies dysuria. [] Musculoskeletal: Positive for myalgias Integument: Denies rash. [] Neurologic: Denies headache, focal weakness or sensory changes. [] Endocrine: Denies polyuria or polydipsia. [] Lymphatic: Denies swollen glands. [] Psychiatric: Denies depression or anxiety. [] Heart Score: Risk Factors: Risk Factors: DM, Current or recent (<one month) smoker, HTN, HLP, family history of CAD, obesity. Risk Scores: Score 0 - 3: 2.5% MACE over next 6 weeks - Discharge Home Score 4 - 6: 20.3% MACE over next 6 weeks - Admit for Clinical Observation Score 7 - 10: 72.7% MACE over next 6 weeks - Early Invasive Strategies Current Medications: Current Medications Medications (Trade) Dose Ordered Sig/Glenis Start Time Stop Time Status Last Admin Dose Admin Ringer's Solution 1,000 ml @ 1,000 mls/hr 1X ONCE 04/17/20 01:30 04/17/20 02:29 04/17/20 01:34 1,000 MLS/HR Allergies: Allergies: Allergies Coded Allergies Type Severity Reaction Last Updated Verified No Known Drug Allergies 11/06/17 No Physical Exam: PE: Constitutional: Well developed, well nourished, no acute distress, non-toxic appearance. [] HENT: Normocephalic, atraumatic, bilateral external ears normal, oropharynx moist, no oral exudates, nose normal. [] Eyes: PERRLA, EOMI, conjunctiva normal, no discharge. [] Neck: Normal range of motion, no tenderness, supple, no stridor. [] Cardiovascular:Heart rate regular rhythm, no murmur [] Lungs & Thorax: Bilateral breath sounds clear to auscultation [] Abdomen: soft, no tenderness, no masses, no pulsatile masses. [] Skin: Warm, dry, no erythema, no rash. [] Back: No tenderness, no CVA tenderness. [] Extremities: No tenderness, no cyanosis, no clubbing, ROM intact, no edema. [] Neurologic: Alert and oriented X 3, normal motor function, normal sensory function, no focal deficits noted. [] Psychologic: Affect normal, judgement normal, mood normal. [] Current Patient Data: Labs: Laboratory Tests Test 04/17/20 01:29 White Blood Count 6.0 x10^3/uL Red Blood Count 3.23 x10^6/uL Hemoglobin 9.6 g/dL Hematocrit 26.9 % Mean Corpuscular Volume 84 fL Mean Corpuscular Hemoglobin 30 pg Mean Corpuscular Hemoglobin Concent 36 g/dL Red Cell Distribution Width 24.1 % Platelet Count 381 x10^3/uL Neutrophils (%) (Auto) % Lymphocytes (%) (Auto) % Monocytes (%) (Auto) % Eosinophils (%) (Auto) % Basophils (%) (Auto) % Neutrophils # (Auto) x10^3/uL Lymphocytes # (Auto) x10^3/uL Monocytes # (Auto) x10^3/uL Eosinophils # (Auto) x10^3/uL Basophils # (Auto) x10^3/uL Platelet Estimate Pending Absolute Reticulocyte Count 0.119 x10^6/uL Percent Reticulocyte Count 3.7 % Immature Reticulocyte Fraction 0.71 Lactate Dehydrogenase 575 U/L Current Medications Medications (Trade) Dose Ordered Sig/Glenis Route PRN Reason Start Time Stop Time Status Last Admin Dose Admin Ringer's Solution 1,000 ml @ 1,000 mls/hr 1X ONCE IV 04/17/20 01:30 04/17/20 02:29 DC 04/17/20 01:34 Fentanyl Citrate (Fentanyl 2ml Vial) 50 mcg 1X ONCE IVP 04/17/20 01:45 04/17/20 01:46 DC 04/17/20 02:05 Vital Signs: Vital Signs Date Time Temp Pulse Resp B/P (MAP) Pulse Ox O2 Delivery O2 Flow Rate FiO2 04/17/20 00:58 98.9 69 17 113/59 (77) 95 Room Air 98.9 EKG: EKG: EKG consistent with normal sinus rhythm. Ventricular rate of 84 bpm. [place] normal. Intervals normal. No acute ischemic changes appreciated. [] Radiology/Procedures: Radiology/Procedures: [] Course & Med Decision Making: Course & Med Decision Making Pertinent Labs and Imaging studies reviewed. (See chart for details) Patient is a 24-year-old male with history of sickle cell disease who presents with chief complaint of pain. Vital signs unremarkable. Chest x-ray was obtained and does show a persistent right lower lobe slight opacity. However this appears unchanged and slightly improved from previous x-ray. He has no r eports of cough, chest pain, or shortness of breath. No hypoxia or fever. Low suspicion for acute chest syndrome. Hemoglobin consistent with baseline. Reticulocyte count also at baseline. Patient's pain was well controlled in the emergency department. He states that he can fill his oxycodone prescription this afternoon. Given this no outpatient narcotics were prescribed. Return precautions discussed and understood. Instructed to follow-up with tool design drafter. Stable for discharge home. Candelario Disclaimer: Candelario Disclaimer: This electronic medical record was generated, in whole or in part, using a voice recognition dictation system. Departure Departure Impression: Primary Impression: Sickle cell pain crisis Disposition: 01 HOME, SELF-CARE Condition: GOOD Referrals: UNKNOWN PCP NAME (PCP) Patient Instructions: Sickle Cell Pain Crisis Additional Instructions: Please follow-up with your tool design drafter in the next week. Please follow with your primary care physician in the next 2 to 3 days. José Miguel [facility] [address] [place] [address] [facility] [address] [place] [address] [facility] [address] [facility] [place] [address] [facility] [address] [place] [address] [facility] [address] [place] [address] [address] [place] [address] [facility] [address] [place] [address] [facility] [address] [place] [address] [facility] [address] [place] [address] [facility] [address] [place] [address] Justicifation of Admission Dx: Justifications for Admission: Justification of Admission Dx: N/A Aspiration Pneumonia: Hemodynamic Instability Sepsis: Dehydration Angina: Cresendo Worsening of Sym DANETTE BERGMAN DO Apr 17, 2020 01:36
[2020-04-17 01:39] LABS: HEMATOCRIT 26.9 % (39.0-53.0); HEMOGLOBIN 9.6 g/dL (13.0-17.5); MEAN CORPUSCULAR HEMOGLOBIN 30 pg (25-35); MEAN CORPUSCULAR HGB CONC 36 g/dL (31-37); MEAN CORPUSCULAR VOLUME 84 fL (79-100); PLATELET COUNT 381 x10^3/uL (140-400); RED BLOOD COUNT 3.22 x10^6/uL (4.30-5.70); RED CELL DISTRIBUTION WIDTH 24.1 % (11.5-14.5)
[2020-04-17] MEDS ORDERED: fentaNYL PF VIAL 100 MCG/2 ML VIAL IVP ONE ×2 (01:45→02:45)
--- NOTE | 2020-04-17 02:32 | RAD ---
Study: CR CHEST PA LATERAL Indication: Pain. History of sickle cell disease. Comparison: 03/25/2020 Findings: Peripheral opacification at the right lower lung was present previously. An adjacent infiltrate on the comparison exam appears to have resolved. No newly seen abnormality throughout the left hemithorax or upper two thirds of the right lung. Unchanged asymmetric elevation of the right hemidiaphragm. No pneumothorax. Unchanged size of the cardiomediastinal silhouette. Impression: Persistent opacification at the lateral margin of the right lower lung with associated silhouetting and elevation of the right hemidiaphragm. An adjacent infiltrate seen on 03/25/2020 has resolved. Both infectious or noninfectious etiologies are possible in this patient with reported sickle cell but it is important to note that the findings have not worsened in the interim. Electronically signed by: KEVAN MODI MD (04/17/2020 2:29 AM) [id number]
[2020-04-17 02:33] LABS: % EOS 5 % (0-5); % LYMPHS 46 % (24-48); % MONOS 9 % (0-10); % SEGS 40 % (35-66); ANISOCYTOSIS MOD; HYPOCHROMIA SLIGHT; NUCLEATED RBC 2; PLT ESTIMATE ADEQUATE (ADEQUATE); POLYCHROMASIA SLIGHT; SICKLE CELLS MOD
[2020-04-17 02:47] LABS: POIKILOCYTOSIS MARKED
[2020-04-17 02:49] LABS: HOWELL-JOLLY BODIES PRESENT
[2020-04-17] MEDS ORDERED: oxyCODONE IR 5 MG TABLET PO ONE (03:15)
[2020-04-17 04:00] VITALS: BP 98/60
== END 2020-04-17 04:10 | disposition home or self-care (01) ==
LOC: ER 00:36
DX: D57.00 Hb-SS disease with crisis, unspecified (principal); F17.200 Nicotine dependence, unspecified, uncomplicated
CPT/HCPCS: 36415; 71046; 83615; 85007; 85025; 85045; 96361; 96374; 96376; 99285; J3010; J7120

== ENCOUNTER 2020-04-24 16:12 | Emergency (ER) | payer BC, MEDICARE ==
[~2020-04-24] VITALS: Ht 175.3 cm; Wt 77.2 kg
--- NOTE | 2020-04-24 18:34 | PHYS DOC ---
Past Medical History Past Medical History: Sickle Cell Disease, Vascular Disease Additional Past Medical Histor: AVASCULAR NECROSIS OF R HIP Past Surgical History: Other Additional Past Surgical Histo: L HIP BONE GRAFT Smoking Status: Current Every Day Smoker Alcohol Use: None Drug Use: Marijuana General Adult EDM: Chief Complaint: OTHER COMPLAINTS HPI: HPI: Patient is a 24 year old AA male, well-known to this emergency department with history of sickle cell anemia that presents with a primary complaint of acute pain in his bilateral legs and his entire back. Patient reports concerns that he is having a sickle cell crisis. He reports that he has been taking his medications as prescribed but reports that his pain is not being controlled. Patient reports a history of avascular necrosis in his right hip but he denies any increased pain in his hip. He denies any fever, chest pain, shortness of breath, palpitations, syncope, nausea, vomiting, diarrhea, or cough. He currently rates his pain a 10 out of 10 on pain scale, he denies any alleviating or exacerbating factors. Review of Systems: Review of Systems: Complete ROS is negative unless otherwise stated in the HPI. Heart Score: Risk Factors: Risk Factors: DM, Current or recent (<one month) smoker, HTN, HLP, family history of CAD, obesity. Risk Scores: Score 0 - 3: 2.5% MACE over next 6 weeks - Discharge Home Score 4 - 6: 20.3% MACE over next 6 weeks - Admit for Clinical Observation Score 7 - 10: 72.7% MACE over next 6 weeks - Early Invasive Strategies Allergies: Allergies: Allergies Coded Allergies Type Severity Reaction Last Updated Verified No Known Drug Allergies 11/06/17 No Physical Exam: PE: Constitutional: Well developed, well nourished, no acute distress, non-toxic appearance. [] HENT: Normocephalic, atraumatic, bilateral external ears normal, nose normal. [] Eyes: PERRLA, EOMI, conjunctiva normal, no discharge. [] Neck: Normal range of motion, no stridor. [] Cardiovascular:Heart rate regular rhythm Lungs & Thorax: Respirations even and unlabored, no retractions, no respiratory distress Abdomen: soft, no tenderness Skin: Warm, dry, no erythema, no rash. [] Extremities: No cyanosis, ROM intact, no edema. [] Neurologic: Alert and oriented X 3, no focal deficits noted. [] Psychologic: Affect normal, judgement normal, mood normal. [] Current Patient Data: Vital Signs: Vital Signs Date Time Temp Pulse Resp B/P (MAP) Pulse Ox O2 Delivery O2 Flow Rate FiO2 04/24/20 17:49 99.0 92 18 120/62 (81) 96 Room Air 99.0 EKG: EKG: [] Radiology/Procedures: Radiology/Procedures: [] Course & Med Decision Making: Course & Med Decision Making Pertinent Labs and Imaging studies reviewed. (See chart for details) 24-year-old male presents to the emergency department with complaints of possible sickle cell crisis. Work-up included labs, IV fluids, pain and nausea medication. CBC revealed a red blood cell count of 3.45, hemoglobin 10.4, hematocrit 28.7, his reticulocyte percentage was 2.8 with 0.70 immature reticulocyte fractions. Patient reported feeling better after his IV pain medication and nausea medication and stated he would like to go home patient reports he will resume taking his home pain medication as prescribed. [] Dragon Disclaimer: Dragon Disclaimer: This electronic medical record was generated, in whole or in part, using a voice recognition dictation system. Departure Departure Impression: Primary Impression: Chronic pain syndrome Disposition: HOME, SELF-CARE Condition: STABLE Referrals: UNKNOWN PCP NAME (PCP) Patient Instructions: Chronic Pain Management-Brief Additional Instructions: CONTINUE TAKING YOUR PAIN MEDICATION AT HOME PRESCRIBED. FOLLOW UP WITH YOUR COOKER CHIP IN 1-2 DAYS. RETURN TO THE ER IF SYMPTOMS WORSEN. Justicifation of Admission Dx: Justifications for Admission: Justification of Admission Dx: N/A Aspiration Pneumonia: Hemodynamic Instability Sepsis: Dehydration Angina: Cresendo Worsening of Sym MILAN VELOZ CELL COVERER Apr 24, 2020 18:34
[2020-04-24 18:43] LABS: BASO # 0.1 x10^3/uL (0.0-0.2); BASO % 2 % (0-3); EOS # 0.2 x10^3/uL (0.0-0.7); EOS % 3 % (0-3); HEMATOCRIT 28.7 % (39.0-53.0); HEMOGLOBIN 10.4 g/dL (13.0-17.5); LYMPH # 2.4 x10^3/uL (1.0-4.8); LYMPH % 32 % (24-48); MEAN CORPUSCULAR HEMOGLOBIN 30 pg (25-35); MEAN CORPUSCULAR HGB CONC 36 g/dL (31-37); MEAN CORPUSCULAR VOLUME 82 fL (79-100); MONO % 13 % (0-9); NEUT # 3.8 x10^3/uL (1.8-7.7); NEUT % 50 % (31-73); PLATELET COUNT 323 x10^3/uL (140-400); RED BLOOD COUNT 3.49 x10^6/uL (4.30-5.70); WHITE BLOOD COUNT 7.6 x10^3/uL (4.0-11.0)
[2020-04-24] MEDS ORDERED: IV NORMAL SALINE 1000ML BAG 1,000 ML IV ONE (18:45)
[2020-04-24 19:10] LABS: HYPOCHROMIA SLIGHT; PLT ESTIMATE ADEQUATE (ADEQUATE); POIKILOCYTOSIS MOD; POLYCHROMASIA OCCASIONAL
[2020-04-24 19:11] LABS: ANISOCYTOSIS MOD
[2020-04-24 19:12] LABS: SICKLE CELLS MOD
[2020-04-24 19:13] LABS: BURR CELLS OCC; OVALOCYTES OCC; SCHISTOCYTES OCC
[2020-04-24 19:14] LABS: TARGET CELLS MOD
[2020-04-24 19:16] LABS: TEAR DROP CELLS OCC
[2020-04-24 19:19] LABS: HOWELL-JOLLY BODIES PRESENT
[2020-04-24] MEDS ORDERED: MORPHINE SULFATE 4 MG/ML VIAL. IV ONE (19:30)
[2020-04-24] MEDS ORDERED: ONDANSETRON PF 4 MG/2 ML VIAL. IV ONE (19:30)
[2020-04-24 20:05] VITALS: BP 119/78
== END 2020-04-24 20:47 | disposition home or self-care (01) ==
LOC: ER 16:12
DX: G89.4 Chronic pain syndrome (principal); M79.605 Pain in left leg; M79.604 Pain in right leg; M54.9 Dorsalgia, unspecified; F17.200 Nicotine dependence, unspecified, uncomplicated
CPT/HCPCS: 36415; 85025; 85045; 96361; 96374; 96375; 99285; J2270; J2405; J7030

== ENCOUNTER 2020-04-29 01:04 | Emergency (ER) | payer BC, MEDICARE ==
[~2020-04-29] VITALS: Ht 175.3 cm; Wt 77.3 kg
[2020-04-29 01:16] VITALS: BP 137/91
--- NOTE | 2020-04-29 01:45 | PHYS DOC ---
Past Medical History Past Medical History: Sickle Cell Disease, Vascular Disease Additional Past Medical Histor: AVASCULAR NECROSIS OF R HIP Past Surgical History: Other Additional Past Surgical Histo: L HIP BONE GRAFT Smoking Status: Current Every Day Smoker Alcohol Use: None Drug Use: Marijuana General Adult EDM: Chief Complaint: PAIN CONTROL HPI: HPI: Patient is a 24 year old female male with a past medical history of sickle cell presents with a chief complaint of bilateral leg pain. Patient states pain is consistent with sickle cell pain. Patient states he has been taking his normal oxycodone with minimal relief. Patient states over the last week he has had flareups on and off. Patient states around 2200 hrs. pain has intense and he has not been able to control. Patient denies any associated chest pain or shortness of breath. Review of Systems: Review of Systems: Constitutional: Denies fever or chills. [] Eyes: Denies change in visual acuity. [] HENT: Denies nasal congestion or sore throat. [] Respiratory: Denies cough or shortness of breath. [] Cardiovascular: Denies chest pain or edema. [] GI: Denies abdominal pain, nausea, vomiting, bloody stools or diarrhea. [] : Denies dysuria. [] Musculoskeletal: Bilateral leg pain Integument: Denies rash. [] Neurologic: Denies headache, focal weakness or sensory changes. [] Endocrine: Denies polyuria or polydipsia. [] Lymphatic: Denies swollen glands. [] Psychiatric: Denies depression or anxiety. [] Heart Score: Risk Factors: Risk Factors: DM, Current or recent (<one month) smoker, HTN, HLP, family history of CAD, obesity. Risk Scores: Score 0 - 3: 2.5% MACE over next 6 weeks - Discharge Home Score 4 - 6: 20.3% MACE over next 6 weeks - Admit for Clinical Observation Score 7 - 10: 72.7% MACE over next 6 weeks - Early Invasive Strategies Allergies: Allergies: Allergies Coded Allergies Type Severity Reaction Last Updated Verified No Known Drug Allergies 11/06/17 No Physical Exam: PE: Constitutional: Well developed, well nourished, no acute distress, non-toxic appearance. [] HENT: Normocephalic, atraumatic, bilateral external ears normal, oropharynx moist, no oral exudates, nose normal. [] Eyes: PERRLA, EOMI, conjunctiva normal, no discharge. [] Neck: Normal range of motion, no tenderness, supple, no stridor. [] Cardiovascular:Heart rate regular rhythm, no murmur [] Lungs & Thorax: Bilateral breath sounds clear to auscultation [] Abdomen: Bowel sounds normal, soft, no tenderness, no masses, no pulsatile masses. [] Skin: Warm, dry, no erythema, no rash. [] Back: No tenderness, no CVA tenderness. [] Extremities: No tenderness, no cyanosis, no clubbing, ROM intact, no edema. [] Neurologic: Alert and oriented X 3, normal motor function, normal sensory function, no focal deficits noted. [] Psychologic: Affect normal, judgement normal, mood normal. [] EKG: EKG: [] Radiology/Procedures: Radiology/Procedures: [] Course & Med Decision Making: Course & Med Decision Making Pertinent Labs and Imaging studies reviewed. (See chart for details) [] Patient was evaluated for chief complaint. Based upon history of present illness and physical exam no labs radiologic imaging performed. Patient was treated with IV fluids and morphine. Patient's pain improved post treatment. Patient was discharged home. [employer] Disclaimer: AdEx Media Disclaimer: This electronic medical record was generated, in whole or in part, using a voice recognition dictation system. Departure Departure Impression: Primary Impression: Sickle cell disease Additional Impression: Chronic pain syndrome Disposition: 01 HOME, SELF-CARE Condition: STABLE Referrals: UNKNOWN PCP NAME (PCP) Patient Instructions: Sickle Cell Pain Crisis Justicifation of Admission Dx: Justifications for Admission: Justification of Admission Dx: N/A Aspiration Pneumonia: Hemodynamic Instability Sepsis: Dehydration Angina: Cresendo Worsening of Sym JAYY PRESLEY I DO Apr 29, 2020 01:45
[2020-04-29] MEDS ORDERED: MORPHINE SULFATE 4 MG/ML VIAL. IV ONE ×2 (02:00→03:00)
[2020-04-29] MEDS ORDERED: IV NORMAL SALINE 1000ML BAG 1,000 ML IV ONE (02:00)
== END 2020-04-29 03:08 | disposition home or self-care (01) ==
LOC: ER 01:04
DX: G89.4 Chronic pain syndrome (principal); D57.1 Sickle-cell disease without crisis; M79.605 Pain in left leg; M79.604 Pain in right leg; F17.200 Nicotine dependence, unspecified, uncomplicated; F12.90 Cannabis use, unspecified, uncomplicated; Z98.890 Other specified postprocedural states
CPT/HCPCS: 96361; 96374; 96376; 99284; J2270; J7030

== ENCOUNTER 2020-05-13 01:03 | Emergency (ER) | payer BC, MEDICARE ==
[~2020-05-13] VITALS: Ht 175.3 cm; Wt 77.3 kg
[2020-05-13] MEDS ORDERED: IV NORMAL SALINE 1000ML BAG 1,000 ML IV ONE (01:45)
[2020-05-13 01:46] LABS: BASO # 0.1 x10^3/uL (0.0-0.2); BASO % 2 % (0-3); EOS # 0.1 x10^3/uL (0.0-0.7); EOS % 1 % (0-3); HEMATOCRIT 25.4 % (39.0-53.0); HEMOGLOBIN 9.4 g/dL (13.0-17.5); LYMPH # 3.5 x10^3/uL (1.0-4.8); LYMPH % 40 % (24-48); MEAN CORPUSCULAR HEMOGLOBIN 30 pg (25-35); MEAN CORPUSCULAR HGB CONC 37 g/dL (31-37); MEAN CORPUSCULAR VOLUME 82 fL (79-100); MONO % 12 % (0-9); NEUT # 4.1 x10^3/uL (1.8-7.7); NEUT % 46 % (31-73); PLATELET COUNT 449 x10^3/uL (140-400); RED BLOOD COUNT 3.09 x10^6/uL (4.30-5.70); RED CELL DISTRIBUTION WIDTH 24.6 % (11.5-14.5); WHITE BLOOD COUNT 8.8 x10^3/uL (4.0-11.0)
[2020-05-13 01:54] LABS: CALCIUM 9.3 mg/dL (8.5-10.1); CREATININE 0.7 mg/dL (0.7-1.3); GFR 170.6; POTASSIUM 3.7 mmol/L (3.5-5.1)
[2020-05-13] MEDS ORDERED: MORPHINE SULFATE 10 MG/ML VIAL. IV ONE (02:00)
[2020-05-13 02:02] LABS: ALBUMIN 4.4 g/dL (3.4-5.0); ALBUMIN/GLOBULIN RATIO 1.2 (1.0-1.7); TOTAL PROTEIN 8.1 g/dL (6.4-8.2)
[2020-05-13] MEDS ORDERED: fentaNYL PF VIAL 100 MCG/2 ML VIAL IVP ONE ×2 (02:45→04:15)
[2020-05-13 03:44] VITALS: BP 118/70
--- NOTE | 2020-05-13 04:00 | PHYS DOC ---
Past Medical History Past Medical History: Sickle Cell Disease, Vascular Disease Additional Past Medical Histor: AVASCULAR NECROSIS OF R HIP Past Surgical History: Other Additional Past Surgical Histo: L HIP BONE GRAFT Smoking Status: Current Every Day Smoker Alcohol Use: None Drug Use: Marijuana Social History Narrative: SMOKE MARIJUANA THIS MORNING. General Adult EDM: Chief Complaint: MULTIPLE COMPLAINTS HPI: HPI: Patient is 24-year-old male with past medical history of sickle cell pain crisis who presents the emergency room complaining of sickle cell pain. Patient is well-known to this emergency room and presents several times a month for similar complaints. He has been taking his oxycodone at home without any relief. He states the pain is his typical sickle cell pain. He denies any chest pain. He is not had any infectious symptoms. Is not missed any of his medications. He follows with treatment for sickle cell. Review of Systems: Review of Systems: General: Denies fever, chills, sweats, fatigue Eyes: Denies drainage, blurred vision, eye redness HENT: Denies rhinorrhea, sore throat, earache Respiratory: Denies cough, shortness of breath, wheezing Cardiac: Denies edema, palpitations, chest pain GI: Denies abdominal pain, Nausea, vomiting MSK: Denies neck pain. Reports back pain Skin: Denies rash, jaundice Neuro: Denies headache, dizziness Psychiatric: Denies SI/HI Heart Score: Risk Factors: Risk Factors: DM, Current or recent (<one month) smoker, HTN, HLP, family history of CAD, obesity. Risk Scores: Score 0 - 3: 2.5% MACE over next 6 weeks - Discharge Home Score 4 - 6: 20.3% MACE over next 6 weeks - Admit for Clinical Observation Score 7 - 10: 72.7% MACE over next 6 weeks - Early Invasive Strategies Current Medications: Current Medications Medications (Trade) Dose Ordered Sig/Glenis Start Time Stop Time Status Last Admin Dose Admin Fentanyl Citrate (Fentanyl 2ml Vial) 100 mcg 1X ONCE 05/13/20 02:45 05/13/20 02:46 DC 05/13/20 02:38 100 MCG Morphine Sulfate (Morphine Sulfate) 5 mg 1X ONCE 05/13/20 02:00 05/13/20 02:01 DC 05/13/20 01:54 5 MG Sodium Chloride 1,000 ml @ 1,000 mls/hr 1X ONCE 05/13/20 01:45 05/13/20 02:44 DC 05/13/20 01:54 1,000 MLS/HR Allergies: Allergies: Allergies Coded Allergies Type Severity Reaction Last Updated Verified No Known Drug Allergies 11/06/17 No Physical Exam: PE: General: Awake, alert, moaning. Well Nourished, well hydrated. Cooperative HEENT: Atraumatic, EOMI, PERRL, airway patent, moist oral mucosa Neck: Supple, trachea midline Respiratory: CTA bilaterally, normal effort, no wheezing/crackles CV: RRR, no murmur, cap refill <2 GI: Soft, nondistended, nontender, no masses MSK: No obvious deformities Skin: Warm, dry, intact Neuro: A&O x3, speech NL, sensory and motor grossly intact, no focal deficits Psych: Normal affect, normal mood, not suicidal or homicidal Current Patient Data: Labs: Laboratory Tests Test 05/13/20 01:37 White Blood Count 8.8 x10^3/uL (4.0-11.0) Red Blood Count 3.09 x10^6/uL (4.30-5.70) L Hemoglobin 9.4 g/dL (13.0-17.5) L Hematocrit 25.4 % (39.0-53.0) L Mean Corpuscular Volume 82 fL (79-100) Mean Corpuscular Hemoglobin 30 pg (25-35) Mean Corpuscular Hemoglobin Concent 37 g/dL (31-37) Red Cell Distribution Width 24.6 % (11.5-14.5) H Platelet Count 449 x10^3/uL (140-400) H Neutrophils (%) (Auto) 46 % (31-73) Lymphocytes (%) (Auto) 40 % (24-48) Monocytes (%) (Auto) 12 % (0-9) H Eosinophils (%) (Auto) 1 % (0-3) Basophils (%) (Auto) 2 % (0-3) Neutrophils # (Auto) 4.1 x10^3/uL (1.8-7.7) Lymphocytes # (Auto) 3.5 x10^3/uL (1.0-4.8) Monocytes # (Auto) 1.0 x10^3/uL (0.0-1.1) Eosinophils # (Auto) 0.1 x10^3/uL (0.0-0.7) Basophils # (Auto) 0.1 x10^3/uL (0.0-0.2) Platelet Estimate Pending Absolute Reticulocyte Count 0.163 x10^6/uL (0.020-0.120) Percent Reticulocyte Count 5.2 % (0.5-2.3) H Immature Reticulocyte Fraction 0.69 (0.20-0.60) H Sodium Level 139 mmol/L (136-145) Potassium Level 3.7 mmol/L (3.5-5.1) Chloride Level 103 mmol/L (98-107) Carbon Dioxide Level 28 mmol/L (21-32) Anion Gap 8 (6-14) Blood Urea Nitrogen 7 mg/dL (8-26) L Creatinine 0.7 mg/dL (0.7-1.3) Estimated GFR (Cockcroft-Gault) 170.6 BUN/Creatinine Ratio 10 (6-20) Glucose Level 112 mg/dL (70-99) H Calcium Level 9.3 mg/dL (8.5-10.1) Total Bilirubin 2.0 mg/dL (0.2-1.0) H Aspartate Amino Transferase (AST) 42 U/L (15-37) H Alanine Aminotransferase (ALT) 46 U/L (16-63) Alkaline Phosphatase 116 U/L (46-116) Total Protein 8.1 g/dL (6.4-8.2) Albumin 4.4 g/dL (3.4-5.0) Albumin/Globulin Ratio 1.2 (1.0-1.7) Laboratory Tests 05/13/20 01:37 Laboratory Tests 05/13/20 01:37 Vital Signs: Vital Signs Date Time Temp Pulse Resp B/P (MAP) Pulse Ox O2 Delivery O2 Flow Rate FiO2 05/13/20 02:38 24 95 Room Air 05/13/20 01:44 75 124/73 (90) 05/13/20 01:18 98.5 98.5 EKG: EKG: [] Radiology/Procedures: Radiology/Procedures: [] Course & Med Decision Making: Course & Med Decision Making Pertinent Labs and Imaging studies reviewed. (See chart for details) Patient is a 24-year-old male with a past medical history of sickle cell who presents to the Emergency Room complaining of sickle cell pain consistent with a sickle cell crisis. On exam, patient is overall well-appearing though he is moaning in pain. Patient is having pain in his back. Patient does not have chest pain and will not need a chest x-ray and EKG. Patient does not have priapism, focal neurologic deficits, fever, hypoxia, hypotension. CBC, retic count, CMP, UA were ordered to evaluate for aplastic crisis and precipitating factors of a crisis including infection, acidosis, dehydration. Patient was given morphine and fentanyl for symptoms upon arrival. Patient has had 15 Emergency Room visits for sickle cell crisis in 2019. Work up was reviewed and reveals stable labs. On reevaluation, improvement in symptoms. Patient's test results and vitals while in the ED were fully reviewed and discussed with the patient. Patient is stable and at this time does not need admission to the hospital. We have discussed strict return precautions and the importance of following up with their Primary Care Physician. Patient stated understanding and was given an opportunity to ask any questions. Patient is in agreement with plan. Candelario Disclaimer: Candelario Disclaimer: This electronic medical record was generated, in whole or in part, using a voice recognition dictation system. Departure Departure Impression: Primary Impression: Sickle cell pain crisis Disposition: HOME, SELF-CARE Condition: STABLE Referrals: UNKNOWN PCP NAME (PCP) Patient Instructions: Sickle Cell Pain Crisis Justicifation of Admission Dx: Justifications for Admission: Justification of Admission Dx: N/A Aspiration Pneumonia: Hemodynamic Instability Sepsis: Dehydration Angina: Cresendo Worsening of Sym VICKY HURTADO MD May 13, 2020 04:00
[2020-05-13 04:41] LABS: PLT ESTIMATE INCREASED (ADEQUATE); POLYCHROMASIA MOD
[2020-05-13 04:42] LABS: ANISOCYTOSIS MOD; SICKLE CELLS MOD; TARGET CELLS FEW
== END 2020-05-13 05:12 | disposition home or self-care (01) ==
LOC: ER 01:03
DX: D57.00 Hb-SS disease with crisis, unspecified (principal); F17.200 Nicotine dependence, unspecified, uncomplicated
CPT/HCPCS: 36415; 80053; 85025; 85045; 96361; 96374; 96375; 96376; 99285; J2270; J3010; J7030

== ENCOUNTER 2020-05-17 23:25 | Emergency (ER) | payer BC, MEDICARE ==
[~2020-05-17] VITALS: Ht 175.3 cm; Wt 77.3 kg
--- NOTE | 2020-05-18 00:46 | PHYS DOC ---
Past Medical History Past Medical History: Sickle Cell Disease, Vascular Disease Additional Past Medical Histor: AVASCULAR NECROSIS OF R HIP Past Surgical History: Other Additional Past Surgical Histo: L HIP BONE GRAFT Smoking Status: Current Every Day Smoker Alcohol Use: None Drug Use: Marijuana General Adult EDM: Chief Complaint: OTHER COMPLAINTS HPI: HPI: Patient is a 24 year old male presents with the chief complaint of sickle cell pain. Pain over the last several days. Pain in typical locations back and legs. Patient takes oxycodone daily for pain. Patient states when pain increases he is usually treated with fentanyl. Review of Systems: Review of Systems: Constitutional: Denies fever or chills. [] Eyes: Denies change in visual acuity. [] HENT: Denies nasal congestion or sore throat. [] Respiratory: Denies cough or shortness of breath. [] Cardiovascular: Denies chest pain or edema. [] GI: Denies abdominal pain, nausea, vomiting, bloody stools or diarrhea. [] : Denies dysuria. [] Musculoskeletal: positive back and extremity pain Integument: Denies rash. [] Neurologic: Denies headache, focal weakness or sensory changes. [] Endocrine: Denies polyuria or polydipsia. [] Lymphatic: Denies swollen glands. [] Psychiatric: Denies depression or anxiety. [] Heart Score: Risk Factors: Risk Factors: DM, Current or recent (<one month) smoker, HTN, HLP, family history of CAD, obesity. Risk Scores: Score 0 - 3: 2.5% MACE over next 6 weeks - Discharge Home Score 4 - 6: 20.3% MACE over next 6 weeks - Admit for Clinical Observation Score 7 - 10: 72.7% MACE over next 6 weeks - Early Invasive Strategies Current Medications: Current Medications Medications (Trade) Dose Ordered Sig/Glenis Start Time Stop Time Status Last Admin Dose Admin Fentanyl Citrate (Fentanyl 2ml Vial) 50 mcg 1X ONCE 05/18/20 01:00 05/18/20 01:01 Allergies: Allergies: Allergies Coded Allergies Type Severity Reaction Last Updated Verified No Known Drug Allergies 11/06/17 No Physical Exam: PE: Constitutional: Well developed, well nourished, no acute distress, non-toxic appearance. [] HENT: Normocephalic, atraumatic, bilateral external ears normal, oropharynx moist, no oral exudates, nose normal. [] Eyes: PERRLA, EOMI, conjunctiva normal, no discharge. [] Neck: Normal range of motion, no tenderness, supple, no stridor. [] Cardiovascular:Heart rate regular rhythm, no murmur [] Lungs & Thorax: Bilateral breath sounds clear to auscultation [] Abdomen: Bowel sounds normal, soft, no tenderness, no masses, no pulsatile masses. [] Skin: Warm, dry, no erythema, no rash. [] Back: No tenderness, no CVA tenderness. [] Extremities: No tenderness, no cyanosis, no clubbing, ROM intact, no edema. [] Neurologic: Alert and oriented X 3, normal motor function, normal sensory function, no focal deficits noted. [] Psychologic: Affect normal, judgement normal, mood normal. [] EKG: EKG: [] Radiology/Procedures: Radiology/Procedures: [] Course & Med Decision Making: Course & Med Decision Making Pertinent Labs and Imaging studies reviewed. (See chart for details) [] Dragon Disclaimer: Candelario Disclaimer: This electronic medical record was generated, in whole or in part, using a voice recognition dictation system. Departure Departure Impression: Primary Impression: Chronic pain syndrome Additional Impression: Sickle cell pain crisis Disposition: HOME, SELF-CARE Condition: STABLE Referrals: UNKNOWN PCP NAME (PCP) Patient Instructions: Sickle Cell Pain Crisis Justicifation of Admission Dx: Justifications for Admission: Justification of Admission Dx: N/A Aspiration Pneumonia: Hemodynamic Instability Sepsis: Dehydration Angina: Cresendo Worsening of Sym JAYY PRESLEY DO May 18, 2020 00:46
[2020-05-18] MEDS ORDERED: fentaNYL PF VIAL 100 MCG/2 ML VIAL IVP ONE ×2 (01:00→02:15)
[2020-05-18] MEDS ORDERED: fentaNYL PF VIAL 100 MCG/2 ML VIAL IM ONE (01:00)
[2020-05-18 02:27] VITALS: BP 117/57
== END 2020-05-18 02:36 | disposition home or self-care (01) ==
LOC: ER 23:25
DX: D57.00 Hb-SS disease with crisis, unspecified (principal); F17.200 Nicotine dependence, unspecified, uncomplicated
CPT/HCPCS: 96374; 96376; 99284; J3010

== ENCOUNTER 2020-06-06 22:35 | Emergency (ER) | payer BC, MEDICARE ==
[~2020-06-06] VITALS: Ht 175.3 cm; Wt 79.0 kg
[2020-06-06] MEDS ORDERED: HYDROmorphone 2 MG/ML VIAL IVP ONE (23:15)
--- NOTE | 2020-06-06 23:26 | PHYS DOC ---
Past Medical History Past Medical History: Sickle Cell Disease, Vascular Disease Additional Past Medical Histor: AVASCULAR NECROSIS OF R HIP Past Surgical History: Other Additional Past Surgical Histo: L HIP BONE GRAFT Smoking Status: Never Smoker Alcohol Use: None Drug Use: Marijuana General Adult EDM: Chief Complaint: sickle cell crisis HPI: HPI: Patient is a 24 year old male with a history of sickle cell disease presents with a 2-day history of his typical sickle cell pain. Patient describes severe pain in his upper and lower back as well as bilateral femurs. Pain seems to be worse with activity. Patient ran out of his pain meds 4 days ago. Pain is nonradiating. Patient denies any fevers chills cough vomiting or diarrhea. Review of Systems: Review of Systems: Constitutional: Denies fever or chills. [] Eyes: Denies change in visual acuity. [] HENT: Denies nasal congestion or sore throat. [] Respiratory: Denies cough or shortness of breath. [] Cardiovascular: Denies chest pain or edema. [] GI: Denies abdominal pain, nausea, vomiting, bloody stools or diarrhea. [] : Denies dysuria. [] Musculoskeletal: Complains of back pain and bilateral femur pain Integument: Denies rash. [] Neurologic: Denies headache, focal weakness or sensory changes. [] Endocrine: Denies polyuria or polydipsia. [] Lymphatic: Denies swollen glands. [] Psychiatric: Denies depression or anxiety. [] Heart Score: Risk Factors: Risk Factors: DM, Current or recent (<one month) smoker, HTN, HLP, family history of CAD, obesity. Risk Scores: Score 0 - 3: 2.5% MACE over next 6 weeks - Discharge Home Score 4 - 6: 20.3% MACE over next 6 weeks - Admit for Clinical Observation Score 7 - 10: 72.7% MACE over next 6 weeks - Early Invasive Strategies Current Medications: Current Medications Medications (Trade) Dose Ordered Sig/Glenis Start Time Stop Time Status Last Admin Dose Admin Hydromorphone HCl (Dilaudid) 1 mg 1X ONCE 06/06/20 23:15 06/06/20 23:16 DC Allergies: Allergies: Allergies Coded Allergies Type Severity Reaction Last Updated Verified No Known Drug Allergies 11/06/17 No Physical Exam: PE: Constitutional: Well developed, well nourished, no acute distress, non-toxic appearance. [] HENT: Normocephalic, atraumatic, bilateral external ears normal, no trismus, nose normal. [] Eyes: PERRLA, EOMI, conjunctiva normal, no discharge. [] Neck: Normal range of motion, no tenderness, supple, no stridor. [] Cardiovascular:Heart rate regular rhythm, no murmur [] Lungs & Thorax: Bilateral breath sounds clear, no respiratory distress Abdomen: soft, no tenderness, no masses, no pulsatile masses. [] Skin: Warm, dry, no erythema, no rash. [] Back: Mild limited range of motion due to pain Extremities: No tenderness, no cyanosis, no clubbing, ROM intact, no edema. [] Neurologic: Alert and oriented X 3, normal motor function, normal sensory function, no focal deficits noted. [] Psychologic: Affect normal, judgement normal, mood normal. [] Current Patient Data: Labs: Laboratory Tests Test 06/06/20 23:35 White Blood Count 8.7 x10^3/uL Red Blood Count 3.13 x10^6/uL Hemoglobin 9.7 g/dL Hematocrit 26.5 % Mean Corpuscular Volume 84 fL Mean Corpuscular Hemoglobin 31 pg Mean Corpuscular Hemoglobin Concent 37 g/dL Red Cell Distribution Width 25.0 % Platelet Count 270 x10^3/uL Neutrophils (%) (Auto) 46 % Lymphocytes (%) (Auto) 41 % Monocytes (%) (Auto) 10 % Eosinophils (%) (Auto) 2 % Basophils (%) (Auto) 2 % Neutrophils # (Auto) 4.0 x10^3/uL Lymphocytes # (Auto) 3.6 x10^3/uL Monocytes # (Auto) 0.8 x10^3/uL Eosinophils # (Auto) 0.2 x10^3/uL Basophils # (Auto) 0.1 x10^3/uL Platelet Estimate Pending Absolute Reticulocyte Count 0.169 x10^6/uL Percent Reticulocyte Count 5.4 % Immature Reticulocyte Fraction 0.65 Sodium Level 141 mmol/L Potassium Level 3.6 mmol/L Chloride Level 107 mmol/L Carbon Dioxide Level 24 mmol/L Anion Gap 10 Blood Urea Nitrogen 5 mg/dL Creatinine 0.6 mg/dL Estimated GFR (Cockcroft-Gault) 203.9 BUN/Creatinine Ratio 8 Glucose Level 97 mg/dL Calcium Level 8.9 mg/dL Total Bilirubin 2.1 mg/dL Aspartate Amino Transf (AST/SGOT) 43 U/L Alanine Aminotransferase (ALT/SGPT) 22 U/L Alkaline Phosphatase 98 U/L Lactate Dehydrogenase 794 U/L Total Protein 7.5 g/dL Albumin 4.1 g/dL Albumin/Globulin Ratio 1.2 Current Medications Medications (Trade) Dose Ordered Sig/Glenis Route PRN Reason Start Time Stop Time Status Last Admin Dose Admin Hydromorphone HCl (Dilaudid) 1 mg 1X ONCE IVP 06/06/20 23:15 06/06/20 23:16 DC 06/06/20 23:38 Vital Signs: Vital Signs Date Time Temp Pulse Resp B/P (MAP) Pulse Ox O2 Delivery O2 Flow Rate FiO2 06/06/20 23:45 98.7 72 18 119/70 (86) 98 Room Air 98.7 06/06/20 23:38 22 98 Room Air EKG: EKG: [] Radiology/Procedures: Radiology/Procedures: [] Course & Med Decision Making: Course & Med Decision Making Pertinent Labs and Imaging studies reviewed. (See chart for details) [] Patient reassessed at 12:08 AM and pain is improved. We will give the patient half milligram more of Dilaudid and that he will need to follow-up later in the day with his sickle cell clinic for pain medicines. Labs appear to be at the patient's baseline. Candelario Disclaimer: Candelario Disclaimer: This electronic medical record was generated, in whole or in part, using a voice recognition dictation system. Departure Departure Impression: Primary Impression: Sickle cell pain crisis Disposition: 01 DC HOME SELF CARE/HOMELESS Condition: STABLE Referrals: UNKNOWN PCP NAME (PCP) Sickle cell clinic Patient Instructions: Sickle Cell Anemia, Sickle Cell Pain Crisis Additional Instructions: EMERGENCY DEPARTMENT GENERAL DISCHARGE INSTRUCTIONS THANK YOU for coming to [facility] Emergency Department (ED) today and trusting us with your care. We trust that you had a positive experience in our Emergency Department. If you wish to speak to the department Management you can contact the mathematics department chair at . YOUR FOLLOW UP INSTRUCTIONS ARE FOLLOWS: Do you have a private doctor? If you do not have a private doctor, please ask for a resource list of physicians or clinics that may be able to assist you with follow up care. The Emergency Physician has interpreted your x-rays. The X-ray specialist will also review them. If there is a change in the findings you will be notified in 48 hours when at all possible. A lab test or lab culture may have been done, your results will be reviewed and you will be notified if you need a change in treatment. ADDITIONAL INSTRUCTIONS AND INFORMATION Your care today has been supervised by a physician who is specially trained in emergency care. Many problems require more than one evaluation for a complete diagnosis and treatment. We recommend that you schedule your follow up appointment as recommended to ensure complete treatment of your illness or injury. If you are unable to obtain follow up care and continue to have a problem, or if your condition worsens we recommend that you return to the ED. We are not able to safely determine your condition over the phone nor are we able to give sound medical advice over the phone. For these safety reasons, if you call for medical advice we will ask you to come to the ED for further evaluation If you have any questions regarding these discharge instructions please call the ED at . SAFETY INFORMATION In the interest of safety, wellness, and injury prevention; we encourage you to wear your seatbelt, if you smoke; quit smoking, and we encourage your family to use protective helmet for bicycling and other sporting events that present an increased risk for head injury. IF YOUR SYMPTOMS WORSEN OR NEW SYMPTOMS DEVELOP, OR YOU HAVE CONCERNS ABOUT YOUR CONDITION; OR IF YOUR CONDITION WORSENS WHILE YOU ARE WAITING FOR YOUR FOLLOW UP APPOINTMENT; EITHER CONTACT YOUR PRIMARY CARE DOCTOR, THE PHYSICIAN WHOSE NAME AND NUMBER YOU WERE GIVEN, OR RETURN TO THE ED IMMEDIATELY. KATRINA PACHECO MD Jun 06, 2020 23:26
[2020-06-06 23:44] LABS: BASO # 0.1 x10^3/uL (0.0-0.2); BASO % 2 % (0-3); EOS # 0.2 x10^3/uL (0.0-0.7); EOS % 2 % (0-3); HEMATOCRIT 26.5 % (39.0-53.0); HEMOGLOBIN 9.7 g/dL (13.0-17.5); LYMPH # 3.6 x10^3/uL (1.0-4.8); LYMPH % 41 % (24-48); MEAN CORPUSCULAR HEMOGLOBIN 31 pg (25-35); MEAN CORPUSCULAR HGB CONC 37 g/dL (31-37); MEAN CORPUSCULAR VOLUME 84 fL (79-100); MONO # 0.8 x10^3/uL (0.0-1.1); MONO % 10 % (0-9); NEUT % 46 % (31-73); PLATELET COUNT 270 x10^3/uL (140-400); RED BLOOD COUNT 3.14 x10^6/uL (4.30-5.70); WHITE BLOOD COUNT 8.7 x10^3/uL (4.0-11.0)
[2020-06-06 23:50] LABS: CALCIUM 8.9 mg/dL (8.5-10.1); CREATININE 0.6 mg/dL (0.7-1.3); GFR 203.9; POTASSIUM 3.6 mmol/L (3.5-5.1)
[2020-06-06 23:55] LABS: ALBUMIN 4.1 g/dL (3.4-5.0); ALBUMIN/GLOBULIN RATIO 1.2 (1.0-1.7); TOTAL BILIRUBIN 2.1 mg/dL (0.2-1.0); TOTAL PROTEIN 7.5 g/dL (6.4-8.2)
[2020-06-07] MEDS ORDERED: HYDROmorphone 2 MG/ML VIAL IVP ONE (00:15)
[2020-06-07 00:18] LABS: % LYMPHS 35 % (24-48); % MONOS 12 % (0-10); % SEGS 53 % (35-66); ANISOCYTOSIS MOD; HYPOCHROMIA MOD; NUCLEATED RBC 8; PLT ESTIMATE ADEQUATE (ADEQUATE); POIKILOCYTOSIS MARKED; POLYCHROMASIA MOD; SICKLE CELLS MANY; TARGET CELLS FEW
[2020-06-07 00:19] LABS: SCHISTOCYTES FEW
[2020-06-07 00:30] VITALS: BP 120/62
== END 2020-06-07 00:36 | disposition home or self-care (01) ==
LOC: ER 22:35
DX: D57.00 Hb-SS disease with crisis, unspecified (principal); M54.5 Low back pain; F12.90 Cannabis use, unspecified, uncomplicated; Z98.890 Other specified postprocedural states
CPT/HCPCS: 36415; 80053; 83615; 85007; 85025; 85045; 96374; 96376; 99284; J1170

== ENCOUNTER 2020-06-17 02:40 | Emergency (ER) | payer BC, MEDICARE ==
[~2020-06-17] VITALS: Ht 175.3 cm; Wt 77.3 kg
--- NOTE | 2020-06-17 03:26 | PHYS DOC ---
Past Medical History Past Medical History: Other Additional Past Medical Histor: Sickle cell Past Surgical History: No Surgical History Additional Past Surgical Histo: L HIP BONE GRAFT Smoking Status: Current Some Day Smoker Additional Information: Pt is attempting cessation with gum bu because of COVID has been unable to get the gum; not essential and just returned to work Alcohol Use: None Drug Use: Marijuana Social History Narrative: Pt smokes weed on occasion General Adult EDM: Chief Complaint: OTHER COMPLAINTS HPI: HPI: Patient is a 24 year old SICKLE CELL presents with 2 day history of sickle cell pain. Patient states pain in typical location of upper and lower back. Denies associated chest pain or shortness of breath. Patient has been taking is oxycodone with mild improvement. Patient states normally treated with fentanyl and IV Fluids. Review of Systems: Review of Systems: Constitutional: Denies fever or chills. [] Eyes: Denies change in visual acuity. [] HENT: Denies nasal congestion or sore throat. [] Respiratory: Denies cough or shortness of breath. [] Cardiovascular: Denies chest pain or edema. [] GI: Denies abdominal pain, nausea, vomiting, bloody stools or diarrhea. [] : Denies dysuria. [] Musculoskeletal: positive back pain Integument: Denies rash. [] Neurologic: Denies headache, focal weakness or sensory changes. [] Endocrine: Denies polyuria or polydipsia. [] Lymphatic: Denies swollen glands. [] Psychiatric: Denies depression or anxiety. [] Heart Score: Risk Factors: Risk Factors: DM, Current or recent (<one month) smoker, HTN, HLP, family history of CAD, obesity. Risk Scores: Score 0 - 3: 2.5% MACE over next 6 weeks - Discharge Home Score 4 - 6: 20.3% MACE over next 6 weeks - Admit for Clinical Observation Score 7 - 10: 72.7% MACE over next 6 weeks - Early Invasive Strategies Current Medications: Current Medications Medications (Trade) Dose Ordered Sig/Glenis Start Time Stop Time Status Last Admin Dose Admin Fentanyl Citrate (Fentanyl 2ml Vial) 50 mcg 1X ONCE 06/17/20 03:30 06/17/20 03:31 06/17/20 03:20 50 MCG Sodium Chloride 1,000 ml @ 1,000 mls/hr 1X ONCE 06/17/20 03:30 06/17/20 04:29 06/17/20 03:17 1,000 MLS/HR Allergies: Allergies: Allergies Coded Allergies Type Severity Reaction Last Updated Verified No Known Drug Allergies 11/06/17 No Physical Exam: PE: Constitutional: Well developed, well nourished, no acute distress, non-toxic appearance. [] HENT: Normocephalic, atraumatic, bilateral external ears normal, oropharynx moist, no oral exudates, nose normal. [] Eyes: PERRLA, EOMI, conjunctiva normal, no discharge. [] Neck: Normal range of motion, no tenderness, supple, no stridor. [] Cardiovascular:Heart rate regular rhythm, no murmur [] Lungs & Thorax: Bilateral breath sounds clear to auscultation [] Abdomen: Bowel sounds normal, soft, no tenderness, no masses, no pulsatile masses. [] Skin: Warm, dry, no erythema, no rash. [] Back: No tenderness, no CVA tenderness. [] Extremities: No tenderness, no cyanosis, no clubbing, ROM intact, no edema. [] Neurologic: Alert and oriented X 3, normal motor function, normal sensory function, no focal deficits noted. [] Psychologic: Affect normal, judgement normal, mood normal. [] Current Patient Data: Vital Signs: Vital Signs Date Time Temp Pulse Resp B/P (MAP) Pulse Ox O2 Delivery O2 Flow Rate FiO2 06/17/20 03:20 20 97 Room Air 06/17/20 03:00 58 124/87 (99) 06/17/20 02:50 97.9 97.9 EKG: EKG: [] Radiology/Procedures: Radiology/Procedures: [] Course & Med Decision Making: Course & Med Decision Making Pertinent Labs and Imaging studies reviewed. (See chart for details) [] Patient's pain treated with fentanyl. Patient also received IV fluids. Symptoms improved post treatment patient was discharged home. Candelario Disclaimer: Candelario Disclaimer: This electronic medical record was generated, in whole or in part, using a voice recognition dictation system. Departure Departure Impression: Primary Impression: Sickle cell pain crisis Additional Impression: Chronic pain syndrome Disposition: 01 DC HOME SELF CARE/HOMELESS Condition: STABLE Referrals: UNKNOWN PCP NAME (PCP) Patient Instructions: Sickle Cell Pain Crisis JAYY PRESLEY DO Jun 17, 2020 03:26
[2020-06-17] MEDS ORDERED: fentaNYL PF VIAL 100 MCG/2 ML VIAL IVP ONE (03:30)
[2020-06-17] MEDS ORDERED: IV NORMAL SALINE 1000ML BAG 1,000 ML IV ONE (03:30)
[2020-06-17 04:50] VITALS: BP 111/59
[2020-06-17] MEDS ORDERED: fentaNYL PF VIAL 100 MCG/2 ML VIAL IM ONE (05:00)
== END 2020-06-17 05:04 | disposition home or self-care (01) ==
LOC: ER 02:40
DX: D57.00 Hb-SS disease with crisis, unspecified (principal); G89.4 Chronic pain syndrome; M54.6 Pain in thoracic spine; M54.5 Low back pain; F17.200 Nicotine dependence, unspecified, uncomplicated
CPT/HCPCS: 96361; 96372; 96374; 99285; J3010; J7030

== ENCOUNTER 2020-06-19 11:29 | Inpatient (IN) | payer BC, MEDICARE ==
[~2020-06-19] VITALS: Ht 175.3 cm; Wt 83.9 kg
[2020-06-19] MEDS ORDERED: IV NORMAL SALINE 1000ML BAG 1,000 ML IV ONE ×2 (12:00)
[2020-06-19] MEDS ORDERED: MORPHINE SULFATE 4 MG/ML VIAL. IV ONE (12:00)
--- NOTE | 2020-06-19 12:28 | PHYS DOC ---
Past Medical History Past Medical History: Other Additional Past Medical Histor: Sickle cell (JENIGERALD ALTERATIONS SEWER) Past Surgical History: No Surgical History Additional Past Surgical Histo: L HIP BONE GRAFT (JENIGERALD ALTERATIONS SEWER) Smoking Status: Current Some Day Smoker Alcohol Use: None Drug Use: Marijuana (GERALD NGO ALTERATIONS SEWER) General Adult EDM: Chief Complaint: PAIN CONTROL HPI: HPI: Patient is a 24 year old male who presents with 4-day history of what he states is his " typical sickle cell flare pain" in his bilateral legs and his upper and lower back. He states he has been taking oxycodone at home which helps slightly. He states he is just not getting better and the pain is worsening. He states he was here 2 days ago and received fentanyl and IV fluid and that usually treats his pain. He states that the treatment his pain and he felt better and was discharged home. He states that this time a year is very hard for him because of the change in the weather is getting colder and it usually causes him to have a sickle cell flare. He states that he has been drinking enough fluid. 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 Rates his pain a 9 out of 10. Patient denies shortness of breath, chest pain, abdominal pain, nausea, vomiting, diarrhea, fever, cough, loss of bowel bladder, numbness or tingling. (GERALD NGO ALTERATIONS SEWER) Review of Systems: Review of Systems: Constitutional: Denies fever or chills. [] Eyes: Denies change in visual acuity. [] HENT: Denies nasal congestion or sore throat. [] Respiratory: Denies cough or shortness of breath. [] Cardiovascular: Denies chest pain or edema. [] GI: Denies abdominal pain, nausea, vomiting, bloody stools or diarrhea. [] : Denies dysuria. [] Musculoskeletal: + Upper and lower back pain, + bilateral leg or denies joint pain. [] Integument: Denies rash. [] Neurologic: Denies headache, focal weakness or sensory changes. [] Endocrine: Denies polyuria or polydipsia. [] Lymphatic: Denies swollen glands. [] Psychiatric: Denies depression or anxiety. [] (GERALD NGO ALTERATIONS SEWER) Heart Score: Risk Factors: Risk Factors: DM, Current or recent (<one month) smoker, HTN, HLP, family history of CAD, obesity. Risk Scores: Score 0 - 3: 2.5% MACE over next 6 weeks - Discharge Home Score 4 - 6: 20.3% MACE over next 6 weeks - Admit for Clinical Observation Score 7 - 10: 72.7% MACE over next 6 weeks - Early Invasive Strategies (GERALD NGO APRN) Current Medications: Current Medications Medications (Trade) Dose Ordered Sig/Glenis Start Time Stop Time Status Last Admin Dose Admin Morphine Sulfate (Morphine Sulfate) 4 mg 1X ONCE 06/19/20 12:00 06/19/20 12:11 DC Sodium Chloride 1,000 ml @ 1,000 mls/hr 1X ONCE 06/19/20 12:00 06/19/20 12:59 (GERALD NGO APRN) Allergies: Allergies: Allergies Coded Allergies Type Severity Reaction Last Updated Verified No Known Drug Allergies 11/06/17 No (GERALD NGO APRN) Physical Exam: PE: Constitutional: Well developed, well nourished, no acute distress, non-toxic appearance. [] HENT: Normocephalic, atraumatic, bilateral external ears normal, oropharynx moist, no oral exudates, nose normal. [] Eyes: PERRLA, EOMI, conjunctiva normal, no discharge. [] Neck: Normal range of motion, no tenderness, supple, no stridor. [] Cardiovascular:Heart rate regular rhythm, no murmur [] Lungs & Thorax: Bilateral breath sounds clear to auscultation [] Abdomen: Bowel sounds normal, soft, no tenderness, no masses, no pulsatile masses. [] Skin: Warm, dry, no erythema, no rash. [] Back: No tenderness, no CVA tenderness. [] Extremities: No tenderness, no cyanosis, no clubbing, ROM intact, no edema. [] Neurologic: Alert and oriented X 3, normal motor function, normal sensory function, no focal deficits noted. [] Psychologic: Affect normal, judgement normal, mood normal. Normal physical exam [] (GERALD NGO APRN) Current Patient Data: Vital Signs: Vital Signs Date Time Temp Pulse Resp B/P (MAP) Pulse Ox O2 Delivery O2 Flow Rate FiO2 06/19/20 12:03 98.0 65 16 128/71 (90) 96 Room Air 98.0 (GERALD NGO APRN) EKG: EK and read by Dr Pacheco as Sinus Rhythm and no STEMI[] (GERALD NGO APRN) Radiology/Procedures: Radiology/Procedures: [] Impression: [facility] [address] [place] [address] IMAGING REPORT Signed PATIENT: RASHAUN CHURCH EACCOUNT: [id number] : 1995 LOCATION: ER AGE: 24 SEX: M EXAM STATUS: REG ER ORD. PHYSICIAN: GERALD NGO APRN REASON: SICKLE CELL CRISIS PROCEDURE: PORTABLE CHEST 1V Examination: PORTABLE CHEST 1V History: Reason: SICKLE CELL CRISIS / Spl. Instructions: / History: Comparison/Correlation: 04/17/2020 Findings: Portable upright frontal view of the chest was obtained. Heart size is borderline enlarged but this may be in part technique related. Subtle patchy opacity the right lower lateral thoracic region is present mildly decreased to previous exam. No pneumothorax. No new focal infiltrate. Bony structures are grossly unremarkable. Impression: Decreased right lower lateral basilar infiltrate. No new infiltrate. Electronically signed by: Brenton Jin MD (06/19/2020 12:26 PM) [id number] DICTATED and SIGNED BY: BRENTON JIN MD DATE: 06/19/20 1226 (GERALD NGO APRN) Course & Med Decision Making: Course & Med Decision Making Pertinent Labs and Imaging studies reviewed. (See chart for details) See HPI. Alert and oriented x4. Ambulatory to steady gait. Speaks in full clear sentences. Conjunctiva of his eyes are yellowed. No extremity swelling. Patient states he has pain with movement. There is no tenderness or CVA tenderness to his back. Lungs are clear to auscultation on all lobes. Vital signs within normal limits. Patient is in sickle cell crisis. His retake counts are slightly better. His LDH has increased along with his bili level. Patient has intractable pain. The chest x-ray showed a left-sided infiltrate that is decreasing in size. He is not requiring any oxygen. Again he denies any shortness of breath or chest pain. Patient is admitted for sickle cell crisis. He is admitted to Dr. Mendoza. [] (GERALD NGO APRN) Course & Med Decision Making I have personally interviewed and examined patient. All charts, labs and imaging studies were reviewed. I agreed with the PA/CONCRETE FINISHER's findings, exam and plan of care. Patient with recurrent sickle cell crisis. Patient has elevated bilirubin LDH as well and several visits recently. Patient will need to be admitted for pain control and IV fluids. On my assessment patient is resting comfortably and states his pain is better controlled. No focal neurological deficits. (KATRINA PACHECO MD) Dragon Disclaimer: Dragon Disclaimer: This electronic medical record was generated, in whole or in part, using a voice recognition dictation system. (GERALD NGO APRN) Departure Departure Impression: Primary Impression: Sickle cell pain crisis Disposition: ADMITTED INPT THIS HOSP Condition: STABLE Referrals: NON,STAFF (PCP) GERALD NGO APRN Jun 19, 2020 12:28 KATRINA PACHECO MD Jun 19, 2020 14:22
[2020-06-19 12:46] LABS: CALCIUM 8.6 mg/dL (8.5-10.1); CREATININE 0.6 mg/dL (0.7-1.3); GFR 203.9
[2020-06-19 12:52] LABS: ALBUMIN/GLOBULIN RATIO 1.4 (1.0-1.7); TOTAL BILIRUBIN 3.1 mg/dL (0.2-1.0); TOTAL PROTEIN 6.8 g/dL (6.4-8.2)
[2020-06-19 12:54] LABS: BILIRUBIN,URINE NEGATIVE (NEG); CLARITY,URINE CLEAR; COLOR,URINE AMBER; NITRITE,URINE NEGATIVE (NEG); PROTEIN,URINE NEGATIVE (NEG-TRACE)
[2020-06-19 13:16] LABS: BACTERIA,URINE FEW /HPF (0-FEW); RBC,URINE 0 /HPF (0-2)
[2020-06-19] MEDS ORDERED: IV NORMAL SALINE 1000ML BAG 1,000 ML IV SCH (13:45)
[2020-06-19] MEDS ORDERED: MORPHINE SULFATE 4 MG/ML VIAL. IV PRN (13:45)
[2020-06-19] MEDS ORDERED: ONDANSETRON PF 4 MG/2 ML VIAL. IV PRN (13:45)
[2020-06-19] MEDS ORDERED: fentaNYL PF VIAL 100 MCG/2 ML VIAL IVP ONE ×3 (13:45→15:45)
[2020-06-19] MEDS ORDERED: AZITHRMYCN 500MG IVPB FOR OMNI 250 ML IV ONE (14:15)
[2020-06-19] MEDS ORDERED: cefTRIAXone IV Push 1 GM VIAL. IVP ONE (14:15)
[2020-06-19] MEDS ORDERED: fentaNYL PF VIAL 100 MCG/2 ML VIAL IVP PRN (15:45)
[2020-06-19] MEDS: fentaNYL PF VIAL 100 MCG/2 ML VIAL IVP PRN ×2 (17:20→19:35)
--- NOTE | 2020-06-19 18:07 | EKG ---
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
[2020-06-19] MEDS ORDERED: BISACODYL 10 MG SUPP.RECT. PR PRN (18:30)
[2020-06-19] MEDS ORDERED: PROCHLORPERAZINE 10 MG/2 ML VIAL. IVP PRN (18:30)
[2020-06-19] MEDS ORDERED: ACETAMINOPHEN 325 MG TABLET. PO PRN (18:30)
[2020-06-19] MEDS ORDERED: ONDANSETRON PF 4 MG/2 ML VIAL. IVP PRN (18:30)
[2020-06-19] MEDS ORDERED: MAG HYDROX/ALUMINUM HYD/SIMETH 30 ML ORAL.SUSP PO PRN (18:30)
[2020-06-19] MEDS ORDERED: HYDROmorphone 2 MG TABLET PO PRN (18:30)
[2020-06-19] MEDS ORDERED: ZOLPIDEM 5 MG TABLET. PO PRN (18:30)
[2020-06-19] MEDS ORDERED: MAGNESIUM HYDROXIDE 2,400 MG/30 ML ORAL.SUSP. PO PRN (18:30)
[2020-06-19] MEDS ORDERED: CALCIUM CARBONATE 500 MG TAB.CHEW PO PRN (18:30)
[2020-06-19] MEDS ORDERED: IBUPROFEN 400 MG TABLET. PO PRN (18:30)
[2020-06-19] MEDS ORDERED: IV NORMAL SALINE 1000ML BAG 1,000 ML IV PRN (18:30)
--- NOTE | 2020-06-19 18:43 | PDOC1 ---
History and Physical Date of Admission Date of Admission DATE: 06/19/20 TIME: 18:33 Identification/Chief Complaint Chief Complaint Back pain, leg pain Source Source: Patient History of Present Illness History of Present Illness Patient is a 24-year-old male with past history of sickle cell disease who presents with bilateral upper back and bilateral leg pain for the past 4 days. He reports pain 9/10. Patient states his pain is been worsening over the past 4 days and feels it is typical sickle cell flare. He has been taking his home pain medications and hydrating without any improvement. He was recently seen in the ER for similar symptoms that improved with IV fentanyl and fluids. Patient denies any chest pain, shortness of breath, nausea, or vomiting. We have asked to admit patient for further evaluation and management of his symptoms. Past Medical History Pulmonary: No pertinent hx Heme/Onc: Sickle cell disease Family History Family History: High Cholestrol, Hypertension Social History Smoke: <1 pack per day ALCOHOL: none Drugs: None Current Problem List Problem List Problems Medical Problems: (1) Sickle cell pain crisis Status: Acute Current Medications Current Medications Current Medications Sodium Chloride 1,000 ml @ 1,000 mls/hr 1X ONCE IV Last administered on 06/19/20at 12:40; Start 06/19/20 at 12:00; Stop 06/19/20 at 12:59; Status DC Sodium Chloride 1,000 ml @ 1,000 mls/hr 1X ONCE IV Last administered on 06/19/20at 12:40; Start 06/19/20 at 12:00; Stop 06/19/20 at 12:59; Status DC Morphine Sulfate (Morphine Sulfate) 4 mg 1X ONCE IV Last administered on 06/19/20at 12:41; Start 06/19/20 at 12:00; Stop 06/19/20 at 12:11; Status DC Fentanyl Citrate (Fentanyl 2ml Vial) 75 mcg 1X ONCE IVP Last administered on 06/19/20at 13:50; Start 06/19/20 at 13:45; Stop 06/19/20 at 13:46; Status DC Ondansetron HCl (Zofran) 4 mg PRN Q8HRS PRN IV NAUSEA/VOMITING Last administered on 06/19/20at 16:11; Start 06/19/20 at 13:45; Stop 06/20/20 at 13:44 Morphine Sulfate (Morphine Sulfate) 4 mg PRN Q2HR PRN IV PAIN; Start 06/19/20 at 13:45; Stop 06/20/20 at 13:44 Sodium Chloride 1,000 ml @ 125 mls/hr Q8H IV Last administered on 06/19/20at 15:19; Start 06/19/20 at 13:45; Stop 06/20/20 at 13:44 Azithromycin 250 ml @ 250 mls/hr 1X ONCE IV Last administered on 06/19/20at 15:46; Start 06/19/20 at 14:15; Stop 06/19/20 at 15:14; Status DC Ceftriaxone Sodium (Rocephin) 1 gm 1X ONCE IVP Last administered on 06/19/20at 15:46; Start 06/19/20 at 14:15; Stop 06/19/20 at 14:16; Status DC Fentanyl Citrate (Fentanyl 2ml Vial) 75 mcg 1X ONCE IVP Last administered on 06/19/20at 14:52; Start 06/19/20 at 15:00; Stop 06/19/20 at 15:01; Status DC Fentanyl Citrate (Fentanyl 2ml Vial) 25 mcg 1X ONCE IVP Last administered on 06/19/20at 15:38; Start 06/19/20 at 15:45; Stop 06/19/20 at 15:46; Status DC Fentanyl Citrate (Fentanyl 2ml Vial) 100 mcg PRN Q6HRS PRN IVP PAIN; Start 06/19/20 at 15:45 Fentanyl Citrate (Fentanyl 2ml Vial) 100 mcg PRN Q2HR PRN IVP SEVERE PAIN Last administered on 06/19/20at 17:20; Start 06/19/20 at 17:30 Sodium Chloride 1,000 ml @ 100 mls/hr CONT PRN IV .; Start 06/19/20 at 18:30 Ondansetron HCl (Zofran) 4 mg PRN Q6HRS PRN IVP NAUSEA/VOMITING; Start 06/19/20 at 18:30; Status UNV Prochlorperazine Edisylate (Compazine) 10 mg PRN Q6HRS PRN IVP NAUSEA/VOMITING; Start 06/19/20 at 18:30; Status UNV Al Hydroxide/Mg Hydroxide (Mylanta Plus Xs) 30 ml PRN Q3HRS PRN PO HEARTBURN / GAS; Start 06/19/20 at 18:30; Status UNV Calcium Carbonate/ Glycine (Tums) 500 mg PRN Q3HRS PRN PO UPSET STOMACH; Start 06/19/20 at 18:30; Status UNV Zolpidem Tartrate (Ambien) 5 mg PRN QHS PRN PO INSOMNIA, MAY REPEAT IN 1HR; Start 06/19/20 at 18:30; Status UNV Oxycodone HCl (Roxicodone) 10 mg PRN Q4HRS PRN PO MODERATE PAIN, SEVERE PAIN; Start 06/19/20 at 18:30; Status UNV Hydromorphone HCl (Dilaudid) 2 mg PRN Q4HRS PRN PO MILD PAIN, MODERATE PAIN; Start 06/19/20 at 18:30; Status UNV Hydromorphone HCl (Dilaudid) 4 mg PRN Q4HRS PRN PO SEVERE PAIN, 2ND CHOICE; Start 06/19/20 at 18:30; Status UNV Acetaminophen (Tylenol) 650 mg PRN Q6HRS PRN PO Headaches, Temp > 101.5F; Start 06/19/20 at 18:30; Status UNV Ibuprofen (Motrin) 400 mg PRN Q6HRS PRN PO MILD PAIN 1-3; Start 06/19/20 at 18:30; Status UNV Docusate Sodium (Colace) 100 mg BID PO ; Start 06/19/20 at 21:00; Status UNV Magnesium Hydroxide (Milk Of Magnesia) 2,400 mg PRN Q12HR PRN PO CONSTIPATION; Start 06/19/20 at 18:30; Status UNV Bisacodyl (Dulcolax Supp) 10 mg PRN DAILY PRN [place] CONSTIPATION; Start 06/19/20 at 18:30; Status UNV Active Scripts Active Zofran (Ondansetron Hcl) 4 Mg Tablet 1 Tab PO Q6HRS PRN 4 Days Lidocaine-Prilocaine Cream (Lidocaine/Prilocaine) 30 Gm Cream..g. 30 Gm TP Q8HRS PRN Reported Oxycodone Hcl Immed.release (Oxycodone Hcl) 10 Mg Tablet 2 Tab PO Q4HRS PRN MDD 4 Tablet(s) 30 Days Allergies Allergies: Coded Allergies: No Known Drug Allergies (Unverified , 11/06/17) ROS Review of System GENERAL: No history of weight change, weakness or fevers. SKIN: No bruising, hair changes or rashes. EYES: No blurred, double or loss of vision. NOSE AND THROAT: No history of nosebleeds, hoarseness or sore throat. HEART: Denies chest pain, denies palpitations. LUNGS: Denies cough, hemoptysis, wheezing or shortness of breath. GASTROINTESTINAL: Denies nausea, vomiting, abdominal pain. GENITOURINARY: Denies dysuria, frequency, urgency, hematuria. NEUROLOGIC: Denies history of numbness, tingling, tremor or weakness. PSYCHIATRIC: Denies anxiety, denies depression. ENDOCRINE: No history of heat or cold intolerance, polyuria or polydipsia. Musculoskeletal: Bilateral upper back pain EXTREMITIES: Bilateral lower extremity pain denies muscle weakness. Physical Exam Physical Exam General: Alert, Oriented X3, moderate distress HEENT: PERRLA, EOMI Lungs: Clear to auscultation, Normal air movement Heart: RRR, no murmurs Cardiovascular: S1, S2 Abdomen: Normal bowel sounds, Soft, No tenderness Extremities: No clubbing, No cyanosis Skin: No rashes, No significant lesion Neuro: Normal speech, Normal tone, Sensation intact Psych/Mental Status: Mental status NL, Mood NL Vitals Vitals Vital Signs Date Time Temp Pulse Resp B/P (MAP) Pulse Ox O2 Delivery O2 Flow Rate FiO2 06/19/20 15:56 60 16 95 06/19/20 12:03 98.0 128/71 (90) Room Air 98.0 Labs Labs Laboratory Tests Test 06/19/20 12:30 06/19/20 12:40 06/19/20 15:20 Red Blood Count 2.93 x10^6/uL (4.30-5.70) Absolute Reticulocyte Count 0.131 x10^6/uL (0.020-0.120) Percent Reticulocyte Count 4.5 % (0.5-2.3) Immature Reticulocyte Fraction 0.68 (0.20-0.60) Sodium Level 141 mmol/L (136-145) Potassium Level 4.0 mmol/L (3.5-5.1) Chloride Level 106 mmol/L (98-107) Carbon Dioxide Level 24 mmol/L (21-32) Anion Gap 11 (6-14) Blood Urea Nitrogen 5 mg/dL (8-26) Creatinine 0.6 mg/dL (0.7-1.3) Estimated GFR (Cockcroft-Gault) 203.9 BUN/Creatinine Ratio 8 (6-20) Glucose Level 97 mg/dL (70-99) Calcium Level 8.6 mg/dL (8.5-10.1) Total Bilirubin 3.1 mg/dL (0.2-1.0) Aspartate Amino Transf (AST/SGOT) 60 U/L (15-37) Alanine Aminotransferase (ALT/SGPT) 30 U/L (16-63) Alkaline Phosphatase 99 U/L (46-116) Lactate Dehydrogenase 902 U/L (85-227) Troponin I Quantitative < 0.017 ng/mL (0.000-0.055) Total Protein 6.8 g/dL (6.4-8.2) Albumin 4.0 g/dL (3.4-5.0) Albumin/Globulin Ratio 1.4 (1.0-1.7) Lipase 134 U/L (73-393) Urine Collection Type Unknown Urine Color Elsa Urine Clarity Clear Urine pH 6.0 (<5.0-8.0) Urine Specific [place] 1.015 (1.000-1.030) Urine Protein Negative mg/dL (NEG-TRACE) Urine Glucose (UA) Negative mg/dL (NEG) Urine Ketones (Stick) Negative mg/dL (NEG) Urine Blood Negative (NEG) Urine Nitrite Negative (NEG) Urine Bilirubin Negative (NEG) Urine Urobilinogen Dipstick 1.0 mg/dL (0.2 mg/dL) Urine Leukocyte Esterase Negative (NEG) Urine RBC 0 /HPF (0-2) Urine WBC 1-4 /HPF (0-4) Urine Squamous Epithelial Cells Few /LPF Urine Bacteria Few /HPF (0-FEW) Urine Mucus Mod /LPF Prothrombin Time 16.0 SEC (11.7-14.0) Prothromb Time International Ratio 1.3 (0.8-1.1) Laboratory Tests Test 06/19/20 12:30 06/19/20 12:40 06/19/20 15:20 Red Blood Count 2.93 x10^6/uL (4.30-5.70) Absolute Reticulocyte Count 0.131 x10^6/uL (0.020-0.120) Percent Reticulocyte Count 4.5 % (0.5-2.3) Immature Reticulocyte Fraction 0.68 (0.20-0.60) Sodium Level 141 mmol/L (136-145) Potassium Level 4.0 mmol/L (3.5-5.1) Chloride Level 106 mmol/L (98-107) Carbon Dioxide Level 24 mmol/L (21-32) Anion Gap 11 (6-14) Blood Urea Nitrogen 5 mg/dL (8-26) Creatinine 0.6 mg/dL (0.7-1.3) Estimated GFR (Cockcroft-Gault) 203.9 BUN/Creatinine Ratio 8 (6-20) Glucose Level 97 mg/dL (70-99) Calcium Level 8.6 mg/dL (8.5-10.1) Total Bilirubin 3.1 mg/dL (0.2-1.0) Aspartate Amino Transf (AST/SGOT) 60 U/L (15-37) Alanine Aminotransferase (ALT/SGPT) 30 U/L (16-63) Alkaline Phosphatase 99 U/L (46-116) Lactate Dehydrogenase 902 U/L (85-227) Troponin I Quantitative < 0.017 ng/mL (0.000-0.055) Total Protein 6.8 g/dL (6.4-8.2) Albumin 4.0 g/dL (3.4-5.0) Albumin/Globulin Ratio 1.4 (1.0-1.7) Lipase 134 U/L (73-393) Urine Collection Type Unknown Urine Color Elsa Urine Clarity Clear Urine pH 6.0 (<5.0-8.0) Urine Specific [place] 1.015 (1.000-1.030) Urine Protein Negative mg/dL (NEG-TRACE) Urine Glucose (UA) Negative mg/dL (NEG) Urine Ketones (Stick) Negative mg/dL (NEG) Urine Blood Negative (NEG) Urine Nitrite Negative (NEG) Urine Bilirubin Negative (NEG) Urine Urobilinogen Dipstick 1.0 mg/dL (0.2 mg/dL) Urine Leukocyte Esterase Negative (NEG) Urine RBC 0 /HPF (0-2) Urine WBC 1-4 /HPF (0-4) Urine Squamous Epithelial Cells Few /LPF Urine Bacteria Few /HPF (0-FEW) Urine Mucus Mod /LPF Prothrombin Time 16.0 SEC (11.7-14.0) Prothromb Time International Ratio 1.3 (0.8-1.1) Images Images History: Reason: SICKLE CELL CRISIS / Spl. Instructions: / History: Comparison/Correlation: 04/17/2020 Findings: Portable upright frontal view of the chest was obtained. Heart size is borderline enlarged but this may be in part technique related. Subtle patchy opacity the right lower lateral thoracic region is present mildly decreased to previous exam. No pneumothorax. No new focal infiltrate. Bony structures are grossly unremarkable. Impression: Decreased right lower lateral basilar infiltrate. No new infiltrate. VTE Prophylaxis Ordered VTE Prophylaxis Devices: Yes VTE Pharmacological Prophylaxi: No Assessment/Plan Assessment/Plan Sickle cell crisis Intractable pain Plan: We will admit patient for sickle crisis and intractable pain. Elevated LDH and T bili consistent with red blood cell obstruction. Patient states his pain is normally controlled with fentanyl 100 mcg Follow reticulocyte count and H&H Fentanyl 100 mcg every 2 hours as needed IV normal saline Consult to hematology for further recommendations Resume p.o. oxycodone as needed FEN - Regular diet PPX - SCDs FULL CODE Dispo - inpatient for above Justifications for Admission Other Justification STEPHANY DEAN MD Jun 19, 2020 18:43
[2020-06-19] MEDS: HYDROmorphone 4 MG TABLET PO PRN (18:48)
[2020-06-19 19:00] VITALS: BP 117/54
[2020-06-19] MEDS: DOCUSATE SODIUM 100 MG CAPSULE. PO SCH (21:26)
[2020-06-19 23:00] VITALS: BP 114/66
[2020-06-19] MEDS: oxyCODONE IR 5 MG TABLET PO PRN (23:33)
[2020-06-20] MEDS: IV NORMAL SALINE 1000ML BAG 1,000 ML IV SCH ×3 (00:23→16:25)
[2020-06-20] MEDS: fentaNYL PF VIAL 100 MCG/2 ML VIAL IVP PRN ×10 (00:26→21:23)
[2020-06-20] MEDS ORDERED: FOLIC ACID PO (02:27)
[2020-06-20] MEDS ORDERED: MULT1CAP15 PO (02:27)
[2020-06-20 03:00] VITALS: BP 126/70
[2020-06-20] MEDS: oxyCODONE IR 5 MG TABLET PO PRN ×4 (03:48→18:58)
[2020-06-20] MEDS: HYDROmorphone 4 MG TABLET PO PRN ×3 (06:25→16:57)
[2020-06-20 07:00] VITALS: BP 116/67
[2020-06-20] MEDS: DOCUSATE SODIUM 100 MG CAPSULE. PO SCH ×2 (08:41→21:28)
--- NOTE | 2020-06-20 10:35 | PDOC ---
[employer] PROGRESS NOTE Date of Service DOS: DATE: 06/20/20 TIME: 10:31 Chief Complaint Chief Complaint A/P: SS anemia with acute pain crisis -no history of CVA or blood clots but has had chest syndrome multiple times contributed frequently. Supposed to be on the Hydrea 1500 mg daily. 100mcg of fentanyl q90-120 minutes has been his pain regimen at [facility] H/o AVN right hip Depression History of Present Illness History of Present Illness Mr Montesinos is a 24-year-old male with past history of sickle cell disease who presents with bilateral upper back and bilateral leg pain for the past 4 days. He reports pain 9/10. Patient states his pain is been worsening over the past 4 days and feels it is typical sickle cell flare. He has been taking his home pain medications and hydrating without any improvement. He was recently seen in the ER for similar symptoms that improved with IV fentanyl and fluids. Patient denies any chest pain, shortness of breath, nausea, or vomiting. We have asked to admit patient for further evaluation and management of his symptoms. CXR actually improved from prior. Vitals/I&O Vitals/I&O: Vital Signs Date Time Temp Pulse Resp B/P (MAP) Pulse Ox O2 Delivery O2 Flow Rate FiO2 06/20/20 09:43 94 06/20/20 09:14 Room Air 06/20/20 07:00 99.6 80 18 116/67 (83) 99.6 I & O 06/19/20 06/19/20 06/20/20 15:00 23:00 07:00 Intake Total 2300 ml 400 ml Output Total 800 ml Balance 2300 ml -400 ml Physical Exam Lungs: Clear Labs Labs: Laboratory Tests Test 06/19/20 12:30 06/19/20 12:40 06/19/20 15:20 Red Blood Count 2.93 x10^6/uL (4.30-5.70) Absolute Reticulocyte Count 0.131 x10^6/uL (0.020-0.120) Percent Reticulocyte Count 4.5 % (0.5-2.3) Immature Reticulocyte Fraction 0.68 (0.20-0.60) Sodium Level 141 mmol/L (136-145) Potassium Level 4.0 mmol/L (3.5-5.1) Chloride Level 106 mmol/L (98-107) Carbon Dioxide Level 24 mmol/L (21-32) Anion Gap 11 (6-14) Blood Urea Nitrogen 5 mg/dL (8-26) Creatinine 0.6 mg/dL (0.7-1.3) Estimated GFR (Cockcroft-Gault) 203.9 BUN/Creatinine Ratio 8 (6-20) Glucose Level 97 mg/dL (70-99) Calcium Level 8.6 mg/dL (8.5-10.1) Total Bilirubin 3.1 mg/dL (0.2-1.0) Aspartate Amino Transf (AST/SGOT) 60 U/L (15-37) Alanine Aminotransferase (ALT/SGPT) 30 U/L (16-63) Alkaline Phosphatase 99 U/L (46-116) Lactate Dehydrogenase 902 U/L (85-227) Troponin I Quantitative < 0.017 ng/mL (0.000-0.055) Total Protein 6.8 g/dL (6.4-8.2) Albumin 4.0 g/dL (3.4-5.0) Albumin/Globulin Ratio 1.4 (1.0-1.7) Lipase 134 U/L (73-393) Urine Collection Type Unknown Urine Color Elsa Urine Clarity Clear Urine pH 6.0 (<5.0-8.0) Urine Specific [place] 1.015 (1.000-1.030) Urine Protein Negative mg/dL (NEG-TRACE) Urine Glucose (UA) Negative mg/dL (NEG) Urine Ketones (Stick) Negative mg/dL (NEG) Urine Blood Negative (NEG) Urine Nitrite Negative (NEG) Urine Bilirubin Negative (NEG) Urine Urobilinogen Dipstick 1.0 mg/dL (0.2 mg/dL) Urine Leukocyte Esterase Negative (NEG) Urine RBC 0 /HPF (0-2) Urine WBC 1-4 /HPF (0-4) Urine Squamous Epithelial Cells Few /LPF Urine Bacteria Few /HPF (0-FEW) Urine Mucus Mod /LPF Prothrombin Time 16.0 SEC (11.7-14.0) Prothromb Time International Ratio 1.3 (0.8-1.1) Assessment and Plan Assessmemt and Plan Problems Medical Problems: (1) Sickle cell pain crisis Status: Acute Comment Review of Relevant I have reviewed the following items misty (where applicable) has been applied. Medications: Current Medications Medications (Trade) Dose Ordered Sig/Glenis Route PRN Reason Start Time Stop Time Status Last Admin Dose Admin Sodium Chloride 1,000 ml @ 1,000 mls/hr 1X ONCE IV 06/19/20 12:00 06/19/20 12:59 DC 06/19/20 12:40 Sodium Chloride 1,000 ml @ 1,000 mls/hr 1X ONCE IV 06/19/20 12:00 06/19/20 12:59 DC 06/19/20 12:40 Morphine Sulfate (Morphine Sulfate) 4 mg 1X ONCE IV 06/19/20 12:00 06/19/20 12:11 DC 06/19/20 12:41 Fentanyl Citrate (Fentanyl 2ml Vial) 75 mcg 1X ONCE IVP 06/19/20 13:45 06/19/20 13:46 DC 06/19/20 13:50 Ondansetron HCl (Zofran) 4 mg PRN Q8HRS PRN IV NAUSEA/VOMITING 06/19/20 13:45 06/20/20 13:44 06/19/20 16:11 Morphine Sulfate (Morphine Sulfate) 4 mg PRN Q2HR PRN IV PAIN 06/19/20 13:45 06/19/20 23:44 DC 06/19/20 21:25 Sodium Chloride 1,000 ml @ 125 mls/hr Q8H IV 06/19/20 13:45 06/19/20 23:49 DC 06/19/20 15:19 Azithromycin 250 ml @ 250 mls/hr 1X ONCE IV 06/19/20 14:15 06/19/20 15:14 DC 06/19/20 15:46 Ceftriaxone Sodium (Rocephin) 1 gm 1X ONCE IVP 06/19/20 14:15 06/19/20 14:16 DC 06/19/20 15:46 Fentanyl Citrate (Fentanyl 2ml Vial) 75 mcg 1X ONCE IVP 06/19/20 15:00 06/19/20 15:01 DC 06/19/20 14:52 Fentanyl Citrate (Fentanyl 2ml Vial) 25 mcg 1X ONCE IVP 06/19/20 15:45 06/19/20 15:46 DC 06/19/20 15:38 Fentanyl Citrate (Fentanyl 2ml Vial) 100 mcg PRN Q2HR PRN IVP SEVERE PAIN 06/19/20 17:30 06/20/20 09:14 Oxycodone HCl (Roxicodone) 10 mg PRN Q4HRS PRN PO MODERATE PAIN, SEVERE PAIN 06/19/20 18:30 06/20/20 08:42 Hydromorphone HCl (Dilaudid) 4 mg PRN Q4HRS PRN PO SEVERE PAIN, 2ND CHOICE 06/19/20 18:30 06/20/20 06:25 Ibuprofen (Motrin) 400 mg PRN Q6HRS PRN PO MILD PAIN 1-3 06/19/20 18:30 06/19/20 21:26 Docusate Sodium (Colace) 100 mg BID PO 06/19/20 21:00 06/20/20 08:41 Sodium Chloride 1,000 ml @ 125 mls/hr Q8H IV 06/19/20 23:45 06/20/20 08:41 Justifications for Admission Other Justification TONIA ABDI MD Jun 20, 2020 10:35
[2020-06-20 11:00] VITALS: BP 127/71
[2020-06-20 11:40] LABS: BASO # 0.1 x10^3/uL (0.0-0.2); BASO % 1 % (0-3); EOS % 0 % (0-3); HEMATOCRIT 22.2 % (39.0-53.0); LYMPH # 1.7 x10^3/uL (1.0-4.8); LYMPH % 18 % (24-48); MEAN CORPUSCULAR HEMOGLOBIN 31 pg (25-35); MEAN CORPUSCULAR HGB CONC 36 g/dL (31-37); MEAN CORPUSCULAR VOLUME 84 fL (79-100); MONO # 1.3 x10^3/uL (0.0-1.1); MONO % 13 % (0-9); NEUT # 6.5 x10^3/uL (1.8-7.7); NEUT % 68 % (31-73); PLATELET COUNT 237 x10^3/uL (140-400); RED BLOOD COUNT 2.63 x10^6/uL (4.30-5.70); RED CELL DISTRIBUTION WIDTH 23.6 % (11.5-14.5); WHITE BLOOD COUNT 9.5 x10^3/uL (4.0-11.0)
[2020-06-20 12:04] LABS: CALCIUM 8.1 mg/dL (8.5-10.1); CREATININE 0.6 mg/dL (0.7-1.3); GFR 203.9; POTASSIUM 3.1 mmol/L (3.5-5.1)
[2020-06-20 12:25] LABS: ANISOCYTOSIS MOD; PLT ESTIMATE ADEQUATE (ADEQUATE); SICKLE CELLS MOD
[2020-06-20 12:26] LABS: POIKILOCYTOSIS SLIGHT; TARGET CELLS FEW
[2020-06-20 12:27] LABS: POLYCHROMASIA SLIGHT
[2020-06-20] MEDS ORDERED: POTASSIUM CHLORIDE 20 MEQ TABLET.ER. PO ONE (14:45)
[2020-06-20 15:00] VITALS: BP 137/69
--- NOTE | 2020-06-20 17:18 | NUR ---
SW following for discharge planning. Spoke with RN and reviewed chart. Pt is from home. SW familiar with this pt from previous admissions. Pt has a hx of multiple hospitalizations. Pt currently on room air and IV pain medications. Discharge plan is home, self-care. SW available as needed.
[2020-06-20 19:00] VITALS: BP 123/72
[2020-06-20] MEDS: DOXYCYCLINE HYCLATE 100 MG in IV DEXTROSE 5% 100ML 100 ML IV SCH (21:27)
[2020-06-20] MEDS: cefTRIAXone IV Push 1 GM VIAL. IVP SCH (21:27)
[2020-06-20 23:00] VITALS: BP 127/69
[2020-06-21] MEDS: IV NORMAL SALINE 1000ML BAG 1,000 ML IV SCH ×3 (01:38→21:00)
[2020-06-21] MEDS: oxyCODONE IR 5 MG TABLET PO PRN ×5 (01:38→23:26)
[2020-06-21 03:00] VITALS: BP 131/76
[2020-06-21] MEDS: fentaNYL PF VIAL 100 MCG/2 ML VIAL IVP PRN ×4 (03:00→19:35)
[2020-06-21 04:45] LABS: BASO # 0.1 x10^3/uL (0.0-0.2); BASO % 1 % (0-3); EOS # 0.1 x10^3/uL (0.0-0.7); EOS % 1 % (0-3); HEMATOCRIT 23.3 % (39.0-53.0); HEMOGLOBIN 8.5 g/dL (13.0-17.5); LYMPH # 1.7 x10^3/uL (1.0-4.8); LYMPH % 18 % (24-48); MEAN CORPUSCULAR HEMOGLOBIN 31 pg (25-35); MEAN CORPUSCULAR HGB CONC 36 g/dL (31-37); MEAN CORPUSCULAR VOLUME 85 fL (79-100); MONO # 1.5 x10^3/uL (0.0-1.1); MONO % 16 % (0-9); NEUT # 6.2 x10^3/uL (1.8-7.7); NEUT % 65 % (31-73); PLATELET COUNT 232 x10^3/uL (140-400); RED BLOOD COUNT 2.76 x10^6/uL (4.30-5.70); RED CELL DISTRIBUTION WIDTH 23.4 % (11.5-14.5); WHITE BLOOD COUNT 9.6 x10^3/uL (4.0-11.0)
[2020-06-21 06:26] LABS: CALCIUM 8.7 mg/dL (8.5-10.1); CREATININE 0.6 mg/dL (0.7-1.3); GFR 203.9; POTASSIUM 3.5 mmol/L (3.5-5.1)
[2020-06-21 07:00] VITALS: BP 133/74
--- NOTE | 2020-06-21 08:35 | PDOC2 ---
CONSULT Date of Consult Date of Consult DATE: 06/21/20 TIME: 08:24 Reason for Consult Reason for Consult: Sickle cell disease Referring Physician Referring Physician: Dr Mendoza Identification/Chief Complaint Chief Complaint "I am hurting all over" Source Source: Chart review, Patient History of Present Illness Reason for Visit: Kenji Montesinos is a 24 year old male with sickle cell disease who has been admitted for evaluation and management of sickle cell pain crisis. He is known to me from a recent hospitalization for sickle cell pain crisis at [facility]. He reports that after he recently started experiencing worsening of his pain and therefore came into the emergency room for further evaluation and was admitted for management of pain crisis. He denies associated fever, chills, chest pain, nausea, vomiting, diarrhea, shortness of breath, cough. He attributes worsening of sickle cell pain due to recent cold weather and notes that this is typical for his sickle cell pain. Patient reports that he follows at [facility] sickle cell clinic and was last seen by Alma Saravia APRN. I previously spoke with Geoffrey Crane APRN who informed me that the patient is prescribed 1500 mg of hydroxyurea daily but it is unclear if he takes it given normal MCV. Past Medical History Pulmonary: No pertinent hx Heme/Onc: Sickle cell disease Family History Family History: High Cholestrol, Hypertension Social History <1 pack per day ALCOHOL: none Drugs: None Current Problem List Problem List Problems Medical Problems: (1) Sickle cell pain crisis Status: Acute Current Medications Current Medications Current Medications Sodium Chloride 1,000 ml @ 1,000 mls/hr 1X ONCE IV Last administered on 06/19/20at 12:40; Start 06/19/20 at 12:00; Stop 06/19/20 at 12:59; Status DC Sodium Chloride 1,000 ml @ 1,000 mls/hr 1X ONCE IV Last administered on 06/19/20at 12:40; Start 06/19/20 at 12:00; Stop 06/19/20 at 12:59; Status DC Morphine Sulfate (Morphine Sulfate) 4 mg 1X ONCE IV Last administered on 06/19/20at 12:41; Start 06/19/20 at 12:00; Stop 06/19/20 at 12:11; Status DC Fentanyl Citrate (Fentanyl 2ml Vial) 75 mcg 1X ONCE IVP Last administered on 06/19/20at 13:50; Start 06/19/20 at 13:45; Stop 06/19/20 at 13:46; Status DC Ondansetron HCl (Zofran) 4 mg PRN Q8HRS PRN IV NAUSEA/VOMITING Last administered on 06/19/20at 16:11; Start 06/19/20 at 13:45; Stop 06/20/20 at 13:44; Status DC Morphine Sulfate (Morphine Sulfate) 4 mg PRN Q2HR PRN IV PAIN Last administered on 06/19/20at 21:25; Start 06/19/20 at 13:45; Stop 06/19/20 at 23:44; Status DC Sodium Chloride 1,000 ml @ 125 mls/hr Q8H IV Last administered on 06/19/20at 15:19; Start 06/19/20 at 13:45; Stop 06/19/20 at 23:49; Status DC Azithromycin 250 ml @ 250 mls/hr 1X ONCE IV Last administered on 06/19/20at 15:46; Start 06/19/20 at 14:15; Stop 06/19/20 at 15:14; Status DC Ceftriaxone Sodium (Rocephin) 1 gm 1X ONCE IVP Last administered on 06/19/20at 15:46; Start 06/19/20 at 14:15; Stop 06/19/20 at 14:16; Status DC Fentanyl Citrate (Fentanyl 2ml Vial) 75 mcg 1X ONCE IVP Last administered on 06/19/20at 14:52; Start 06/19/20 at 15:00; Stop 06/19/20 at 15:01; Status DC Fentanyl Citrate (Fentanyl 2ml Vial) 25 mcg 1X ONCE IVP Last administered on 06/19/20at 15:38; Start 06/19/20 at 15:45; Stop 06/19/20 at 15:46; Status DC Fentanyl Citrate (Fentanyl 2ml Vial) 100 mcg PRN Q6HRS PRN IVP PAIN; Start 06/19/20 at 15:45; Stop 06/19/20 at 23:44; Status DC Fentanyl Citrate (Fentanyl 2ml Vial) 100 mcg PRN Q2HR PRN IVP SEVERE PAIN Last administered on 06/21/20at 07:15; Start 06/19/20 at 17:30 Sodium Chloride 1,000 ml @ 100 mls/hr CONT PRN IV .; Start 06/19/20 at 18:30; Stop 06/19/20 at 23:44; Status DC Ondansetron HCl (Zofran) 4 mg PRN Q6HRS PRN IVP NAUSEA/VOMITING; Start 06/19/20 at 18:30 Prochlorperazine Edisylate (Compazine) 10 mg PRN Q6HRS PRN IVP NAUSEA/VOMITING 2ND CHOICE; Start 06/19/20 at 18:30; Stop 06/20/20 at 10:33; Status DC Al Hydroxide/Mg Hydroxide (Mylanta Plus Xs) 30 ml PRN Q3HRS PRN PO HEARTBURN / GAS; Start 06/19/20 at 18:30 Calcium Carbonate/ Glycine (Tums) 500 mg PRN Q3HRS PRN PO UPSET STOMACH; Start 06/19/20 at 18:30 Zolpidem Tartrate (Ambien) 5 mg PRN QHS PRN PO INSOMNIA, MAY REPEAT IN 1HR; Start 06/19/20 at 18:30; Stop 06/20/20 at 10:33; Status DC Oxycodone HCl (Roxicodone) 10 mg PRN Q4HRS PRN PO MODERATE PAIN, SEVERE PAIN Last administered on 06/21/20at 06:34; Start 06/19/20 at 18:30 Hydromorphone HCl (Dilaudid) 2 mg PRN Q4HRS PRN PO MILD PAIN, MODERATE PAIN; Start 06/19/20 at 18:30 Hydromorphone HCl (Dilaudid) 4 mg PRN Q4HRS PRN PO SEVERE PAIN, 2ND CHOICE Last administered on 06/20/20at 16:57; Start 06/19/20 at 18:30 Acetaminophen (Tylenol) 650 mg PRN Q6HRS PRN PO Headaches, Temp > 101.5F Last administered on 06/20/20at 21:09; Start 06/19/20 at 18:30 Ibuprofen (Motrin) 400 mg PRN Q6HRS PRN PO MILD PAIN 1-3 Last administered on 06/19/20at 21:26; Start 06/19/20 at 18:30; Stop 06/20/20 at 10:33; Status DC Docusate Sodium (Colace) 100 mg BID PO Last administered on 06/20/20at 21:28; Start 06/19/20 at 21:00 Magnesium Hydroxide (Milk Of Magnesia) 2,400 mg PRN Q12HR PRN PO CONSTIPATION; Start 06/19/20 at 18:30 Bisacodyl (Dulcolax Supp) 10 mg PRN DAILY PRN MA CONSTIPATION; Start 06/19/20 at 18:30 Sodium Chloride 1,000 ml @ 125 mls/hr Q8H IV Last administered on 06/21/20at 01:38; Start 06/19/20 at 23:45 Potassium Chloride (Klor-Con) 40 meq 1X ONCE PO Last administered on 06/20/20at 15:01; Start 06/20/20 at 14:45; Stop 06/20/20 at 14:46; Status DC Ceftriaxone Sodium (Rocephin) 1 gm Q24H IVP Last administered on 06/20/20at 21:27; Start 06/20/20 at 21:00 Doxycycline Hyclate 100 mg/ Dextrose 100 ml @ 50 mls/hr Q12HR IV Last administered on 06/20/20at 21:27; Start 06/20/20 at 21:00 Active Scripts Active Zofran (Ondansetron Hcl) 4 Mg Tablet 1 Tab PO Q6HRS PRN 4 Days Reported Multivitamins (Multivitamin) 1 Each Capsule 1 Cap PO DAILY 30 Days [Folic Acid] 1 Mg PO DAILY Oxycodone Hcl Immed.release (Oxycodone Hcl) 10 Mg Tablet 2 Tab PO Q4HRS PRN MDD 4 Tablet(s) 30 Days Allergies Allergies: Coded Allergies: No Known Drug Allergies (Unverified , 11/06/17) ROS General: YES: Chills, Fatigue; No: Night Sweats PSYCHOLOGICAL ROS: No: Anxiety, Behavioral Disorder Eyes: No Blurry vision, No Decreased vision HEENT: No: Heacaches, Visual Changes Hematological and Lymphatic: No: Night Sweats ENDOCRINE: YES: Malaise/lethargy; No: Mood Swings Respiratory: No: Cough, Hemoptysis Cardiovascular: No Chest Pain, No Palpitations Gastrointestinal: No Nausea, No Vomiting Genitourinary: No Dysuria, No Frequency, No Flank Pain Musculoskeletal: Yes Joint Pain, Yes Joint Stiffness Neurological: No Behavorial Changes, No Bowel/Bladder ControlChng Skin: No Dry Skin, No Eczema Physical Exam General: Alert, Oriented X3, mild distress HEENT: Atraumatic Lungs: Clear to auscultation Heart: Regular rate, Normal S1, Normal S2 Abdomen: Normal bowel sounds, Soft Extremities: No clubbing, No cyanosis Skin: No rashes, No breakdown Neuro: Normal gait Psych/Mental Status: Mental status NL MUSCULOSKELETAL: No deformity Vitals VITALS Vital Signs Date Time Temp Pulse Resp B/P (MAP) Pulse Ox O2 Delivery O2 Flow Rate FiO2 06/21/20 07:15 20 93 Nasal Cannula 2.0 06/21/20 07:00 100.5 87 133/74 (93) 100.5 Labs Labs Laboratory Tests Test 06/19/20 12:30 06/19/20 12:40 06/19/20 15:20 06/20/20 11:10 Red Blood Count 2.93 x10^6/uL (4.30-5.70) 2.65 x10^6/uL (4.30-5.70) Absolute Reticulocyte Count 0.131 x10^6/uL (0.020-0.120) 0.094 x10^6/uL (0.020-0.120) Percent Reticulocyte Count 4.5 % (0.5-2.3) 3.6 % (0.5-2.3) Immature Reticulocyte Fraction 0.68 (0.20-0.60) 0.64 (0.20-0.60) Sodium Level 141 mmol/L (136-145) 141 mmol/L (136-145) Potassium Level 4.0 mmol/L (3.5-5.1) 3.1 mmol/L (3.5-5.1) Chloride Level 106 mmol/L (98-107) 106 mmol/L (98-107) Carbon Dioxide Level 24 mmol/L (21-32) 27 mmol/L (21-32) Anion Gap 11 (6-14) 8 (6-14) Blood Urea Nitrogen 5 mg/dL (8-26) 2 mg/dL (8-26) Creatinine 0.6 mg/dL (0.7-1.3) 0.6 mg/dL (0.7-1.3) Estimated GFR (Cockcroft-Gault) 203.9 203.9 BUN/Creatinine Ratio 8 (6-20) Glucose Level 97 mg/dL (70-99) 94 mg/dL (70-99) Calcium Level 8.6 mg/dL (8.5-10.1) 8.1 mg/dL (8.5-10.1) Total Bilirubin 3.1 mg/dL (0.2-1.0) Aspartate Amino Transf (AST/SGOT) 60 U/L (15-37) Alanine Aminotransferase (ALT/SGPT) 30 U/L (16-63) Alkaline Phosphatase 99 U/L (46-116) Lactate Dehydrogenase 902 U/L (85-227) Troponin I Quantitative < 0.017 ng/mL (0.000-0.055) Total Protein 6.8 g/dL (6.4-8.2) Albumin 4.0 g/dL (3.4-5.0) Albumin/Globulin Ratio 1.4 (1.0-1.7) Lipase 134 U/L (73-393) Urine Collection Type Unknown Urine Color Elsa Urine Clarity Clear Urine pH 6.0 (<5.0-8.0) Urine Specific Gordon 1.015 (1.000-1.030) Urine Protein Negative mg/dL (NEG-TRACE) Urine Glucose (UA) Negative mg/dL (NEG) Urine Ketones (Stick) Negative mg/dL (NEG) Urine Blood Negative (NEG) Urine Nitrite Negative (NEG) Urine Bilirubin Negative (NEG) Urine Urobilinogen Dipstick 1.0 mg/dL (0.2 mg/dL) Urine Leukocyte Esterase Negative (NEG) Urine RBC 0 /HPF (0-2) Urine WBC 1-4 /HPF (0-4) Urine Squamous Epithelial Cells Few /LPF Urine Bacteria Few /HPF (0-FEW) Urine Mucus Mod /LPF Prothrombin Time 16.0 SEC (11.7-14.0) Prothromb Time International Ratio 1.3 (0.8-1.1) White Blood Count 9.5 x10^3/uL (4.0-11.0) Hemoglobin 8.0 g/dL (13.0-17.5) Hematocrit 22.2 % (39.0-53.0) Mean Corpuscular Volume 84 fL (79-100) Mean Corpuscular Hemoglobin 31 pg (25-35) Mean Corpuscular Hemoglobin Concent 36 g/dL (31-37) Red Cell Distribution Width 23.6 % (11.5-14.5) Platelet Count 237 x10^3/uL (140-400) Neutrophils (%) (Auto) 68 % (31-73) Lymphocytes (%) (Auto) 18 % (24-48) Monocytes (%) (Auto) 13 % (0-9) Eosinophils (%) (Auto) 0 % (0-3) Basophils (%) (Auto) 1 % (0-3) Neutrophils # (Auto) 6.5 x10^3/uL (1.8-7.7) Lymphocytes # (Auto) 1.7 x10^3/uL (1.0-4.8) Monocytes # (Auto) 1.3 x10^3/uL (0.0-1.1) Eosinophils # (Auto) 0.0 x10^3/uL (0.0-0.7) Basophils # (Auto) 0.1 x10^3/uL (0.0-0.2) Platelet Estimate Adequate (ADEQUATE) Polychromasia Slight Poikilocytosis Slight Anisocytosis Mod Sickle Cells Mod Target Cells Few Magnesium Level 2.0 mg/dL (1.8-2.4) Test 06/21/20 04:15 06/21/20 05:30 White Blood Count 9.6 x10^3/uL (4.0-11.0) Red Blood Count 2.79 x10^6/uL (4.30-5.70) Hemoglobin 8.5 g/dL (13.0-17.5) Hematocrit 23.3 % (39.0-53.0) Mean Corpuscular Volume 85 fL (79-100) Mean Corpuscular Hemoglobin 31 pg (25-35) Mean Corpuscular Hemoglobin Concent 36 g/dL (31-37) Red Cell Distribution Width 23.4 % (11.5-14.5) Platelet Count 232 x10^3/uL (140-400) Neutrophils (%) (Auto) 65 % (31-73) Lymphocytes (%) (Auto) 18 % (24-48) Monocytes (%) (Auto) 16 % (0-9) Eosinophils (%) (Auto) 1 % (0-3) Basophils (%) (Auto) 1 % (0-3) Neutrophils # (Auto) 6.2 x10^3/uL (1.8-7.7) Lymphocytes # (Auto) 1.7 x10^3/uL (1.0-4.8) Monocytes # (Auto) 1.5 x10^3/uL (0.0-1.1) Eosinophils # (Auto) 0.1 x10^3/uL (0.0-0.7) Basophils # (Auto) 0.1 x10^3/uL (0.0-0.2) Absolute Reticulocyte Count 0.102 x10^6/uL (0.020-0.120) Percent Reticulocyte Count 3.7 % (0.5-2.3) Immature Reticulocyte Fraction 0.68 (0.20-0.60) Sodium Level 141 mmol/L (136-145) Potassium Level 3.5 mmol/L (3.5-5.1) Chloride Level 105 mmol/L (98-107) Carbon Dioxide Level 26 mmol/L (21-32) Anion Gap 10 (6-14) Blood Urea Nitrogen 2 mg/dL (8-26) Creatinine 0.6 mg/dL (0.7-1.3) Estimated GFR (Cockcroft-Gault) 203.9 Glucose Level 76 mg/dL (70-99) Calcium Level 8.7 mg/dL (8.5-10.1) Laboratory Tests Test 06/20/20 11:10 06/21/20 04:15 06/21/20 05:30 White Blood Count 9.5 x10^3/uL (4.0-11.0) 9.6 x10^3/uL (4.0-11.0) Red Blood Count 2.65 x10^6/uL (4.30-5.70) 2.79 x10^6/uL (4.30-5.70) Hemoglobin 8.0 g/dL (13.0-17.5) 8.5 g/dL (13.0-17.5) Hematocrit 22.2 % (39.0-53.0) 23.3 % (39.0-53.0) Mean Corpuscular Volume 84 fL (79-100) 85 fL (79-100) Mean Corpuscular Hemoglobin 31 pg (25-35) 31 pg (25-35) Mean Corpuscular Hemoglobin Concent 36 g/dL (31-37) 36 g/dL (31-37) Red Cell Distribution Width 23.6 % (11.5-14.5) 23.4 % (11.5-14.5) Platelet Count 237 x10^3/uL (140-400) 232 x10^3/uL (140-400) Neutrophils (%) (Auto) 68 % (31-73) 65 % (31-73) Lymphocytes (%) (Auto) 18 % (24-48) 18 % (24-48) Monocytes (%) (Auto) 13 % (0-9) 16 % (0-9) Eosinophils (%) (Auto) 0 % (0-3) 1 % (0-3) Basophils (%) (Auto) 1 % (0-3) 1 % (0-3) Neutrophils # (Auto) 6.5 x10^3/uL (1.8-7.7) 6.2 x10^3/uL (1.8-7.7) Lymphocytes # (Auto) 1.7 x10^3/uL (1.0-4.8) 1.7 x10^3/uL (1.0-4.8) Monocytes # (Auto) 1.3 x10^3/uL (0.0-1.1) 1.5 x10^3/uL (0.0-1.1) Eosinophils # (Auto) 0.0 x10^3/uL (0.0-0.7) 0.1 x10^3/uL (0.0-0.7) Basophils # (Auto) 0.1 x10^3/uL (0.0-0.2) 0.1 x10^3/uL (0.0-0.2) Platelet Estimate Adequate (ADEQUATE) Polychromasia Slight Poikilocytosis Slight Anisocytosis Mod Sickle Cells Mod Target Cells Few Absolute Reticulocyte Count 0.094 x10^6/uL (0.020-0.120) 0.102 x10^6/uL (0.020-0.120) Percent Reticulocyte Count 3.6 % (0.5-2.3) 3.7 % (0.5-2.3) Immature Reticulocyte Fraction 0.64 (0.20-0.60) 0.68 (0.20-0.60) Sodium Level 141 mmol/L (136-145) 141 mmol/L (136-145) Potassium Level 3.1 mmol/L (3.5-5.1) 3.5 mmol/L (3.5-5.1) Chloride Level 106 mmol/L (98-107) 105 mmol/L (98-107) Carbon Dioxide Level 27 mmol/L (21-32) 26 mmol/L (21-32) Anion Gap 8 (6-14) 10 (6-14) Blood Urea Nitrogen 2 mg/dL (8-26) 2 mg/dL (8-26) Creatinine 0.6 mg/dL (0.7-1.3) 0.6 mg/dL (0.7-1.3) Estimated GFR (Cockcroft-Gault) 203.9 203.9 Glucose Level 94 mg/dL (70-99) 76 mg/dL (70-99) Calcium Level 8.1 mg/dL (8.5-10.1) 8.7 mg/dL (8.5-10.1) Magnesium Level 2.0 mg/dL (1.8-2.4) Assessment/Plan Assessment/Plan Assessment: Sickle cell disease with vaso-occlusive pain crisis Acute on chronic pain, secondary to sickle cell disease Recommendations: -Continue with pain control per hospitalist service. Pain regimen effective at [facility] per patient's primary sickle cell disease provider was 100 mcg fentanyl every 2 hours as needed -Continue with IV hydration with maintenance fluids -Encourage bowel regimen given opiate use -Transfuse for symptomatic anemia if Hb<7 given concern for iron overload in patients with sickle cell anemia -Monitor CBC, retic and LDH -Monitor O2 needs -Do not think he has been compliant with hydroxyurea given normal MCV. I discussed with him that this would lower the frequency of pain crises -Follow-up with [facility] sickle cell disease clinic at the time of discharge for further outpatient care Thank you for the consult Willie Maciel MD Medical Oncology/Hematology Ph: [phone] PETRONA MACIEL MD Jun 21, 2020 08:35
[2020-06-21] MEDS: DOXYCYCLINE HYCLATE 100 MG in IV DEXTROSE 5% 100ML 100 ML IV SCH ×2 (08:37→21:01)
[2020-06-21] MEDS: DOCUSATE SODIUM 100 MG CAPSULE. PO SCH ×2 (08:37→21:00)
--- NOTE | 2020-06-21 08:44 | PDOC ---
[employer] PROGRESS NOTE Date of Service DOS: DATE: 06/21/20 TIME: 08:44 Chief Complaint Chief Complaint A/P: SS anemia with acute pain crisis -no history of CVA or blood clots but has had chest syndrome multiple times contributed frequently. Supposed to be on the Hydrea 1500 mg daily. 100mcg of fentanyl q90-120 minutes has been his pain regimen at [facility] H/o AVN right hip Depression History of Present Illness History of Present Illness Mr Montesinos is a 24-year-old male with past history of sickle cell disease who presents with bilateral upper back and bilateral leg pain for the past 4 days. He reports pain 9/10. Patient states his pain is been worsening over the past 4 days and feels it is typical sickle cell flare. He has been taking his home pain medications and hydrating without any improvement. He was recently seen in the ER for similar symptoms that improved with IV fentanyl and fluids. Patient denies any chest pain, shortness of breath, nausea, or vomiting. We have asked to admit patient for further evaluation and management of his symptoms. CXR actually improved from prior. Hb stable today. Screaming in pain, requesting 15mg q3hr oxycodone "like I take at home". I have advised him fentanyl and dilaudid are available and that q4hrs 15mg oxycodone will be an increase and heat and lidoderm to his back which on examination seems to be muscle spasm related. Vitals/I&O Vitals/I&O: Vital Signs Date Time Temp Pulse Resp B/P (MAP) Pulse Ox O2 Delivery O2 Flow Rate FiO2 06/21/20 08:38 18 93 Nasal Cannula 2.0 06/21/20 07:00 100.5 87 133/74 (93) 100.5 I & O 06/20/20 06/20/20 06/21/20 15:00 23:00 07:00 Intake Total 0 ml 240 ml 480 ml Output Total 1200 ml 500 ml 1900 ml Balance -1200 ml -260 ml -1420 ml Physical Exam General: Alert, Oriented X3, mild distress Heart: Regular rate, Normal S1, Normal S2 Lungs: Clear Abdomen: Normal bowel sounds, Soft Extremities: No clubbing, No cyanosis Skin: No rashes, No breakdown Labs Labs: Laboratory Tests Test 06/20/20 11:10 06/21/20 04:15 06/21/20 05:30 White Blood Count 9.5 x10^3/uL (4.0-11.0) 9.6 x10^3/uL (4.0-11.0) Red Blood Count 2.65 x10^6/uL (4.30-5.70) 2.79 x10^6/uL (4.30-5.70) Hemoglobin 8.0 g/dL (13.0-17.5) 8.5 g/dL (13.0-17.5) Hematocrit 22.2 % (39.0-53.0) 23.3 % (39.0-53.0) Mean Corpuscular Volume 84 fL (79-100) 85 fL (79-100) Mean Corpuscular Hemoglobin 31 pg (25-35) 31 pg (25-35) Mean Corpuscular Hemoglobin Concent 36 g/dL (31-37) 36 g/dL (31-37) Red Cell Distribution Width 23.6 % (11.5-14.5) 23.4 % (11.5-14.5) Platelet Count 237 x10^3/uL (140-400) 232 x10^3/uL (140-400) Neutrophils (%) (Auto) 68 % (31-73) 65 % (31-73) Lymphocytes (%) (Auto) 18 % (24-48) 18 % (24-48) Monocytes (%) (Auto) 13 % (0-9) 16 % (0-9) Eosinophils (%) (Auto) 0 % (0-3) 1 % (0-3) Basophils (%) (Auto) 1 % (0-3) 1 % (0-3) Neutrophils # (Auto) 6.5 x10^3/uL (1.8-7.7) 6.2 x10^3/uL (1.8-7.7) Lymphocytes # (Auto) 1.7 x10^3/uL (1.0-4.8) 1.7 x10^3/uL (1.0-4.8) Monocytes # (Auto) 1.3 x10^3/uL (0.0-1.1) 1.5 x10^3/uL (0.0-1.1) Eosinophils # (Auto) 0.0 x10^3/uL (0.0-0.7) 0.1 x10^3/uL (0.0-0.7) Basophils # (Auto) 0.1 x10^3/uL (0.0-0.2) 0.1 x10^3/uL (0.0-0.2) Platelet Estimate Adequate (ADEQUATE) Polychromasia Slight Poikilocytosis Slight Anisocytosis Mod Sickle Cells Mod Target Cells Few Absolute Reticulocyte Count 0.094 x10^6/uL (0.020-0.120) 0.102 x10^6/uL (0.020-0.120) Percent Reticulocyte Count 3.6 % (0.5-2.3) 3.7 % (0.5-2.3) Immature Reticulocyte Fraction 0.64 (0.20-0.60) 0.68 (0.20-0.60) Sodium Level 141 mmol/L (136-145) 141 mmol/L (136-145) Potassium Level 3.1 mmol/L (3.5-5.1) 3.5 mmol/L (3.5-5.1) Chloride Level 106 mmol/L (98-107) 105 mmol/L (98-107) Carbon Dioxide Level 27 mmol/L (21-32) 26 mmol/L (21-32) Anion Gap 8 (6-14) 10 (6-14) Blood Urea Nitrogen 2 mg/dL (8-26) 2 mg/dL (8-26) Creatinine 0.6 mg/dL (0.7-1.3) 0.6 mg/dL (0.7-1.3) Estimated GFR (Cockcroft-Gault) 203.9 203.9 Glucose Level 94 mg/dL (70-99) 76 mg/dL (70-99) Calcium Level 8.1 mg/dL (8.5-10.1) 8.7 mg/dL (8.5-10.1) Magnesium Level 2.0 mg/dL (1.8-2.4) Assessment and Plan Assessmemt and Plan Problems Medical Problems: (1) Sickle cell pain crisis Status: Acute Comment Review of Relevant I have reviewed the following items misty (where applicable) has been applied. Medications: Current Medications Medications (Trade) Dose Ordered Sig/Gelnis Route PRN Reason Start Time Stop Time Status Last Admin Dose Admin Potassium Chloride (Klor-Con) 40 meq 1X ONCE PO 06/20/20 14:45 06/20/20 14:46 DC 06/20/20 15:01 Ceftriaxone Sodium (Rocephin) 1 gm Q24H IVP 06/20/20 21:00 06/20/20 21:27 Doxycycline Hyclate 100 mg/ Dextrose 100 ml @ 50 mls/hr Q12HR IV 06/20/20 21:00 06/21/20 08:37 Justifications for Admission Other Justification TONIA ABDI MD Jun 21, 2020 08:44
[2020-06-21] MEDS ORDERED: ONDANSETRON ODT 4 MG TAB.RAPDIS. PO PRN (09:00)
[2020-06-21] MEDS: MULTIVITAMIN with MINERAL TABLET. PO SCH (10:31)
[2020-06-21] MEDS: FOLIC ACID 1 MG TABLET. PO SCH (10:31)
[2020-06-21 10:58] VITALS: BP 135/76
[2020-06-21] MEDS ORDERED: CYCLOBENZAPRINE 10 MG TABLET. PO PRN (11:30)
[2020-06-21] MEDS: LIDOCAINE (700MG/PATCH) PATCH. TD SCH (13:04)
[2020-06-21 14:38] VITALS: BP 124/70
--- NOTE | 2020-06-21 17:21 | NUR ---
[facility] following for discharge planning. Spoke with RN and reviewed chart. Met with pt today. Pt stated no concerns for discharge. Discharge plan remains home, self-care.
[2020-06-21 19:00] VITALS: BP 144/84
[2020-06-21] MEDS ORDERED: HYDR500C16 PO (19:42)
[2020-06-21] MEDS: PATCH REMOVAL. MC SCH (21:00)
[2020-06-21] MEDS: LACTOBACILLUS RHAMNOSUS GG 1 CAPSULE. PO SCH (21:01)
[2020-06-21] MEDS: cefTRIAXone IV Push 1 GM VIAL. IVP SCH (21:02)
[2020-06-21 23:00] VITALS: BP 142/70
[2020-06-22] MEDS: fentaNYL PF VIAL 100 MCG/2 ML VIAL IVP PRN ×6 (00:21→21:06)
[2020-06-22 03:00] VITALS: BP 133/70
[2020-06-22] MEDS: oxyCODONE IR 5 MG TABLET PO PRN ×3 (06:26→16:17)
[2020-06-22] MEDS: IV NORMAL SALINE 1000ML BAG 1,000 ML IV SCH ×3 (06:28→15:28)
[2020-06-22 07:00] VITALS: BP 141/81
--- NOTE | 2020-06-22 08:39 | PDOC ---
[employer] PROGRESS NOTE Date of Service DOS: DATE: 06/22/20 TIME: 08:37 Chief Complaint Chief Complaint A/P: SS anemia with acute pain crisis -no history of CVA or blood clots but has had chest syndrome multiple times contributed frequently. Supposed to be on the Hydrea 1500 mg daily. 100mcg of fentanyl q90-120 minutes has been his pain regimen at [facility] H/o AVN right hip Depression History of Present Illness History of Present Illness Mr Montesinos is a 24-year-old male with past history of sickle cell disease who presents with bilateral upper back and bilateral leg pain for the past 4 days. He reports pain 9/10. Patient states his pain is been worsening over the past 4 days and feels it is typical sickle cell flare. He has been taking his home pain medications and hydrating without any improvement. He was recently seen in the ER for similar symptoms that improved with IV fentanyl and fluids. Patient denies any chest pain, shortness of breath, nausea, or vomiting. We have asked to admit patient for further evaluation and management of his symptoms. CXR actually improved from prior. 06/22: Hb stable today. Screaming in pain, requesting 15mg q3hr oxycodone "like I take at home". I have advised him fentanyl and dilaudid are available and that q4hrs 15mg oxycodone will be an increase and heat and lidoderm to his back which on examination seems to be muscle spasm related. Feeling better today, low grade temp. Still with some back pain. No BM. Vitals/I&O Vitals/I&O: Vital Signs Date Time Temp Pulse Resp B/P (MAP) Pulse Ox O2 Delivery O2 Flow Rate FiO2 06/22/20 07:00 98.5 84 20 141/81 (101) 96 Room Air 98.5 06/22/20 06:26 2.0 I & O 06/21/20 06/21/20 06/22/20 15:00 23:00 07:00 Intake Total 300 ml 480 ml 720 ml Output Total 1350 ml 2225 ml 2400 ml Balance -1050 ml -1745 ml -1680 ml Physical Exam General: Alert, Oriented X3, mild distress Heart: Regular rate, Normal S1, Normal S2 Lungs: Clear Abdomen: Normal bowel sounds, Soft Extremities: No clubbing, No cyanosis Skin: No rashes, No breakdown Assessment and Plan Assessmemt and Plan Problems Medical Problems: (1) Sickle cell pain crisis Status: Acute Comment Review of Relevant I have reviewed the following items misty (where applicable) has been applied. Medications: Current Medications Medications (Trade) Dose Ordered Sig/Glenis Route PRN Reason Start Time Stop Time Status Last Admin Dose Admin Multivitamins (Thera M Plus) 1 tab DAILY PO 06/21/20 09:00 06/21/20 10:31 Folic Acid (Folic Acid) 1 mg DAILY PO 06/21/20 09:00 06/21/20 10:31 Oxycodone HCl (Roxicodone) 15 mg PRN Q4HRS PRN PO SEVERE PAIN, 1ST CHOICE 06/21/20 11:30 06/22/20 06:26 Lidocaine (Lidoderm) 1 patch DAILY TD 06/21/20 11:30 06/21/20 13:04 Miscellaneous (Lidoderm Patch Removal) 1 ea QHS MC 06/21/20 21:00 06/21/20 21:00 Lactobacillus Rhamnosus (Culturelle) 1 cap BID PO 06/21/20 20:00 06/21/20 21:01 Justifications for Admission Other Justification TONIA ABDI MD Jun 22, 2020 08:39
[2020-06-22] MEDS: POLYETHYLENE GLYCOL 3350 17 GM PACKET. PO SCH ×3 (09:00→21:00)
[2020-06-22] MEDS: MULTIVITAMIN with MINERAL TABLET. PO SCH (09:18)
[2020-06-22] MEDS: LACTOBACILLUS RHAMNOSUS GG 1 CAPSULE. PO SCH ×2 (09:18→19:35)
[2020-06-22] MEDS: FOLIC ACID 1 MG TABLET. PO SCH (09:19)
[2020-06-22] MEDS: DOCUSATE SODIUM 100 MG CAPSULE. PO SCH ×2 (09:19→19:35)
[2020-06-22] MEDS: LIDOCAINE (700MG/PATCH) PATCH. TD SCH (09:19)
[2020-06-22] MEDS: HYDROmorphone 4 MG TABLET PO PRN ×3 (09:23→19:35)
[2020-06-22] MEDS: DOXYCYCLINE HYCLATE 100 MG in IV DEXTROSE 5% 100ML 100 ML IV SCH ×2 (09:33→20:57)
[2020-06-22 11:18] VITALS: BP 128/74
[2020-06-22] MEDS: HYDROXYUREA 500 MG CAPSULE PO SCH (12:08)
[2020-06-22] MEDS ORDERED: MAGNESIUM CITRATE 296 ML SOLUTION. PO ONE (14:30)
[2020-06-22 15:05] VITALS: BP 132/76
[2020-06-22 19:00] VITALS: BP 129/68
[2020-06-22] MEDS: PSYLLIUM HUSK (SUGAR FREE) 1 PKT PACKET PO SCH ×2 (20:56→21:00)
[2020-06-22] MEDS: cefTRIAXone IV Push 1 GM VIAL. IVP SCH (20:58)
[2020-06-22] MEDS: PATCH REMOVAL. MC SCH (21:00)
[2020-06-22 23:06] VITALS: BP 132/72
[2020-06-23] MEDS: fentaNYL PF VIAL 100 MCG/2 ML VIAL IVP PRN ×8 (00:39→23:51)
[2020-06-23] MEDS: IV NORMAL SALINE 1000ML BAG 1,000 ML IV SCH ×4 (00:42→23:45)
[2020-06-23 03:11] VITALS: BP 131/76
[2020-06-23 04:50] LABS: BASO # 0.1 x10^3/uL (0.0-0.2); BASO % 1 % (0-3); EOS # 0.2 x10^3/uL (0.0-0.7); EOS % 2 % (0-3); HEMATOCRIT 21.8 % (39.0-53.0); HEMOGLOBIN 7.8 g/dL (13.0-17.5); LYMPH % 37 % (24-48); MEAN CORPUSCULAR HEMOGLOBIN 30 pg (25-35); MEAN CORPUSCULAR HGB CONC 36 g/dL (31-37); MEAN CORPUSCULAR VOLUME 83 fL (79-100); MONO # 0.9 x10^3/uL (0.0-1.1); MONO % 11 % (0-9); NEUT # 4.1 x10^3/uL (1.8-7.7); NEUT % 49 % (31-73); PLATELET COUNT 222 x10^3/uL (140-400); RED BLOOD COUNT 2.62 x10^6/uL (4.30-5.70); RED CELL DISTRIBUTION WIDTH 23.1 % (11.5-14.5); WHITE BLOOD COUNT 8.2 x10^3/uL (4.0-11.0)
[2020-06-23 05:03] LABS: CALCIUM 8.5 mg/dL (8.5-10.1); CREATININE 0.5 mg/dL (0.7-1.3); GFR 251.6; POTASSIUM 3.2 mmol/L (3.5-5.1)
[2020-06-23] MEDS: oxyCODONE IR 5 MG TABLET PO PRN ×3 (06:25→18:10)
[2020-06-23 07:00] VITALS: BP 133/63
[2020-06-23 07:41] LABS: % BANDS 2 % (0-9); % EOS 1 % (0-5); % LYMPHS 33 % (24-48); % MONOS 5 % (0-10); % SEGS 59 % (35-66); PLT ESTIMATE ADEQUATE (ADEQUATE)
[2020-06-23 07:43] LABS: ANISOCYTOSIS PRESENT; POIKILOCYTOSIS PRESENT; POLYCHROMASIA PRESENT; SCHISTOCYTES FEW; SICKLE CELLS MANY; TARGET CELLS MANY
--- NOTE | 2020-06-23 08:29 | PDOC ---
[facility] PROGRESS NOTE Date of Service DOS: DATE: 06/23/20 TIME: 08:29 Chief Complaint Chief Complaint A/P: SS anemia with acute pain crisis -no history of CVA or blood clots but has had chest syndrome multiple times contributed frequently. Supposed to be on the Hydrea 1500 mg daily. 100mcg of fentanyl q90-120 minutes has been his pain regimen at [facility] H/o AVN right hip Depression Fever Constipation Intractable back pain FEN - General diet PPX - lovenox FULL CODE Dispo - inpatient for sickle cell pain crisis History of Present Illness History of Present Illness Mr Montesinos is a 24-year-old male with past history of sickle cell disease who presents with bilateral upper back and bilateral leg pain for the past 4 days. He reports pain 9/10. Patient states his pain is been worsening over the past 4 days and feels it is typical sickle cell flare. He has been taking his home pain medications and hydrating without any improvement. He was recently seen in the ER for similar symptoms that improved with IV fentanyl and fluids. Patient denies any chest pain, shortness of breath, nausea, or vomiting. We have asked to admit patient for further evaluation and management of his symptoms. CXR actually improved from prior. 06/22: Hb stable today. Screaming in pain, requesting 15mg q3hr oxycodone "like I take at home". I have advised him fentanyl and dilaudid are available and that q4hrs 15mg oxycodone will be an increase and heat and lidoderm to his back which on examination seems to be muscle spasm related. Feeling better today, low grade temp. Still with some back pain. No BM as of yet. Watching football. Hb 7.8 Vitals/I&O Vitals/I&O: Vital Signs Date Time Temp Pulse Resp B/P (MAP) Pulse Ox O2 Delivery O2 Flow Rate FiO2 06/23/20 07:00 100.0 69 18 133/63 (86) 99 Room Air 100.0 06/23/20 06:25 2.0 I & O 06/22/20 06/22/20 06/23/20 15:00 23:00 07:00 Intake Total 450 ml 200 ml Output Total 550 ml 2100 ml Balance -100 ml 200 ml -2100 ml Physical Exam General: Alert, Oriented X3, mild distress Heart: Regular rate, Normal S1, Normal S2 Lungs: Clear Abdomen: Normal bowel sounds, Soft Extremities: No clubbing, No cyanosis Skin: No rashes, No breakdown Labs Labs: Laboratory Tests Test 06/23/20 04:20 White Blood Count 8.2 x10^3/uL (4.0-11.0) Red Blood Count 2.62 x10^6/uL (4.30-5.70) Hemoglobin 7.8 g/dL (13.0-17.5) Hematocrit 21.8 % (39.0-53.0) Mean Corpuscular Volume 83 fL (79-100) Mean Corpuscular Hemoglobin 30 pg (25-35) Mean Corpuscular Hemoglobin Concent 36 g/dL (31-37) Red Cell Distribution Width 23.1 % (11.5-14.5) Platelet Count 222 x10^3/uL (140-400) Neutrophils (%) (Auto) 49 % (31-73) Lymphocytes (%) (Auto) 37 % (24-48) Monocytes (%) (Auto) 11 % (0-9) Eosinophils (%) (Auto) 2 % (0-3) Basophils (%) (Auto) 1 % (0-3) Neutrophils # (Auto) 4.1 x10^3/uL (1.8-7.7) Lymphocytes # (Auto) 3.0 x10^3/uL (1.0-4.8) Monocytes # (Auto) 0.9 x10^3/uL (0.0-1.1) Eosinophils # (Auto) 0.2 x10^3/uL (0.0-0.7) Basophils # (Auto) 0.1 x10^3/uL (0.0-0.2) Segmented Neutrophils % 59 % (35-66) Band Neutrophils % 2 % (0-9) Lymphocytes % 33 % (24-48) Monocytes % 5 % (0-10) Eosinophils % 1 % (0-5) Platelet Estimate Adequate (ADEQUATE) Polychromasia Present Poikilocytosis Present Anisocytosis Present Sickle Cells Many Target Cells Many Schistocytes Few Absolute Reticulocyte Count 0.109 x10^6/uL (0.020-0.120) Percent Reticulocyte Count 4.1 % (0.5-2.3) Immature Reticulocyte Fraction 0.66 (0.20-0.60) Sodium Level 140 mmol/L (136-145) Potassium Level 3.2 mmol/L (3.5-5.1) Chloride Level 103 mmol/L (98-107) Carbon Dioxide Level 28 mmol/L (21-32) Anion Gap 9 (6-14) Blood Urea Nitrogen 4 mg/dL (8-26) Creatinine 0.5 mg/dL (0.7-1.3) Estimated GFR (Cockcroft-Gault) 251.6 Glucose Level 100 mg/dL (70-99) Calcium Level 8.5 mg/dL (8.5-10.1) Assessment and Plan Assessmemt and Plan Problems Medical Problems: (1) Sickle cell pain crisis Status: Acute Comment Review of Relevant I have reviewed the following items misty (where applicable) has been applied. Medications: Current Medications Medications (Trade) Dose Ordered Sig/Glenis Route PRN Reason Start Time Stop Time Status Last Admin Dose Admin Polyethylene Glycol (miraLAX PACKET) 17 gm BID PO 06/22/20 09:00 06/22/20 09:00 Hydroxyurea (Hydrea) 1,500 mg DAILY PO 06/22/20 11:00 06/22/20 12:08 Magnesium Citrate (Citroma) 296 ml 1X ONCE PO 06/22/20 14:30 06/22/20 14:36 DC 06/22/20 15:27 Justifications for Admission Other Justification TONIA ABDI MD Jun 23, 2020 08:29
[2020-06-23] MEDS: DOXYCYCLINE HYCLATE 100 MG in IV DEXTROSE 5% 100ML 100 ML IV SCH ×2 (08:50→20:53)
[2020-06-23] MEDS: DOCUSATE SODIUM 100 MG CAPSULE. PO SCH ×2 (08:51→20:47)
[2020-06-23] MEDS: LACTOBACILLUS RHAMNOSUS GG 1 CAPSULE. PO SCH ×2 (08:51→20:47)
[2020-06-23] MEDS: MULTIVITAMIN with MINERAL TABLET. PO SCH (08:51)
[2020-06-23] MEDS: LIDOCAINE (700MG/PATCH) PATCH. TD SCH (08:51)
[2020-06-23] MEDS: FOLIC ACID 1 MG TABLET. PO SCH (08:51)
[2020-06-23] MEDS: POLYETHYLENE GLYCOL 3350 17 GM PACKET. PO SCH ×2 (08:51→20:47)
[2020-06-23] MEDS: HYDROmorphone 4 MG TABLET PO PRN ×2 (08:52→15:41)
[2020-06-23] MEDS: HYDROXYUREA 500 MG CAPSULE PO SCH (09:13)
[2020-06-23 11:00] VITALS: BP 123/71
[2020-06-23 15:00] VITALS: BP 141/91
[2020-06-23 19:00] VITALS: BP 112/68
[2020-06-23] MEDS: PSYLLIUM HUSK (SUGAR FREE) 1 PKT PACKET PO SCH (20:46)
[2020-06-23] MEDS: cefTRIAXone IV Push 1 GM VIAL. IVP SCH ×2 (20:53→21:00)
[2020-06-23] MEDS: PATCH REMOVAL. MC SCH (21:00)
[2020-06-23 23:00] VITALS: BP 121/68
[2020-06-24 03:00] VITALS: BP 115/73
[2020-06-24] MEDS: fentaNYL PF VIAL 100 MCG/2 ML VIAL IVP PRN ×3 (03:10→12:40)
[2020-06-24] MEDS: IV NORMAL SALINE 1000ML BAG 1,000 ML IV SCH ×2 (05:25→05:38)
[2020-06-24 07:00] VITALS: BP 123/75
[2020-06-24 11:00] VITALS: BP 138/81
[2020-06-24] MEDS: MULTIVITAMIN with MINERAL TABLET. PO SCH (11:05)
[2020-06-24] MEDS: LACTOBACILLUS RHAMNOSUS GG 1 CAPSULE. PO SCH (11:05)
[2020-06-24] MEDS: FOLIC ACID 1 MG TABLET. PO SCH (11:05)
[2020-06-24] MEDS: DOCUSATE SODIUM 100 MG CAPSULE. PO SCH (11:05)
[2020-06-24] MEDS: POLYETHYLENE GLYCOL 3350 17 GM PACKET. PO SCH (11:06)
[2020-06-24] MEDS: LIDOCAINE (700MG/PATCH) PATCH. TD SCH (11:06)
[2020-06-24] MEDS: DOXYCYCLINE HYCLATE 100 MG in IV DEXTROSE 5% 100ML 100 ML IV SCH (11:06)
[2020-06-24] MEDS: HYDROXYUREA 500 MG CAPSULE PO SCH (11:10)
[2020-06-24] MEDS ORDERED: MAGN400O7 PO (12:28)
[2020-06-24] MEDS ORDERED: POLY17PO28 PO (12:28)
[2020-06-24] MEDS ORDERED: DOCU-153 PO (12:28)
[2020-06-24 13:27] LABS: BASO # 0.1 x10^3/uL (0.0-0.2); BASO % 2 % (0-3); EOS # 0.1 x10^3/uL (0.0-0.7); EOS % 2 % (0-3); HEMOGLOBIN 7.3 g/dL (13.0-17.5); LYMPH % 43 % (24-48); MEAN CORPUSCULAR HEMOGLOBIN 29 pg (25-35); MEAN CORPUSCULAR HGB CONC 36 g/dL (31-37); MEAN CORPUSCULAR VOLUME 82 fL (79-100); MONO # 0.6 x10^3/uL (0.0-1.1); MONO % 8 % (0-9); NEUT # 3.1 x10^3/uL (1.8-7.7); NEUT % 45 % (31-73); PLATELET COUNT 238 x10^3/uL (140-400); RED BLOOD COUNT 2.49 x10^6/uL (4.30-5.70); RED CELL DISTRIBUTION WIDTH 23.3 % (11.5-14.5); WHITE BLOOD COUNT 6.9 x10^3/uL (4.0-11.0)
[2020-06-24 13:34] LABS: HEMATOCRIT 20.3 % (39.0-53.0)
--- NOTE | 2020-06-24 13:38 | NUR ---
SW following for discharge planning. Spoke with RN and reviewed chart. Discharge plan remains home, self-care. Addendum: 06/24/20 at 1339 by DEANA WU SW pt to discharge home today, 06/24. Attempted to meet with pt prior to discharge. Pt sleeping. No further SW needs at this time.
[2020-06-24 13:43] LABS: ALBUMIN 3.3 g/dL (3.4-5.0); CALCIUM 8.9 mg/dL (8.5-10.1); CREATININE 0.5 mg/dL (0.7-1.3); GFR 251.6; POTASSIUM 3.7 mmol/L (3.5-5.1); TOTAL BILIRUBIN 2.7 mg/dL (0.2-1.0); TOTAL PROTEIN 6.7 g/dL (6.4-8.2)
[2020-06-24 14:42] LABS: % BASOS 1 % (0-3); % EOS 3 % (0-5); % LYMPHS 38 % (24-48); % MONOS 11 % (0-10); % SEGS 47 % (35-66); NUCLEATED RBC 3
[2020-06-24 14:51] LABS: ANISOCYTOSIS MOD; PLT ESTIMATE ADEQUATE (ADEQUATE); POLYCHROMASIA SLIGHT; SICKLE CELLS MOD
[2020-06-24 14:52] LABS: TARGET CELLS FEW
--- NOTE | 2020-06-25 19:43 | PDOC3 ---
[facility]-Discharge Summary Date of Admission: Date of Admission: Jul 20, 2020 Date of Discharge: Date of Discharge: Jun 24, 2020 Discharge Diagnosis: Discharge Diagnosis: SS anemia with acute pain crisis -no history of CVA or blood clots but has had chest syndrome multiple times contributed frequently. Supposed to be on the Hydrea 1500 mg daily. 100mcg of fentanyl q90-120 minutes has been his pain regimen at [facility] H/o AVN right hip Depression Fever Constipation Intractable back pain Hospital Course: Hospital Course: 24-year-old male with past history of sickle cell disease who presents with bilateral upper back and bilateral leg pain for the past 4 days. He reports pain 9/10. Patient states his pain is been worsening over the past 4 days and feels it is typical sickle cell flare. He has been taking his home pain medications and hydrating without any improvement. He was recently seen in the ER for similar symptoms that improved with IV fentanyl and fluids. Patient denies any chest pain, shortness of breath, nausea, or vomiting. We have asked to admit patient for further evaluation and management of his symptoms. CXR actually improved from prior. 06/22: Hb stable today. Screaming in pain, requesting 15mg q3hr oxycodone "like I take at home". I have advised him fentanyl and dilaudid are available and that q4hrs 15mg oxycodone will be an increase and heat and lidoderm to his back which on examination seems to be muscle spasm related. Feeling better today, low grade temp. Still with some back pain. No BM as of yet. Watching football. Hb 7.8 On day of discharge. Patient has improved pain. Passing flatus and had not pass BM yet since before his admission. Patient was placed on bowel regimen and he will be discharged with laxatives and stool softeners. An appointment was scheduled with his PCP for close followup if patient does not have BM within the next few days. The rest of his hospital course was uneventful. He will also need to f/u with his Oncologist for continued management with his SCD> He still needs to continue taking his folate and hydrea. Disposition: Disposition/Orders: D/C to Home Activity: Activity: Resume previous activity Medications: Home Meds Active Scripts Polyethylene Glycol 3350 (POLYETHYLENE GLYCOL 3350) 17 Gm Powd.pack, 17 GM PO BID for constipation for 30 Days, #60 PKT Prov:JUDY MAZARIEGOS MD 06/24/20 Magnesium Hydroxide (MILK OF MAGNESIA) 400 Mg/5 Ml Oral.susp, 2400 MG PO PRN Q12HR PRN for CONSTIPATION for 30 Days, #60 MISC Prov:JUDY MAZARIEGOS MD 06/24/20 Docusate Sodium (DOK) 100 Mg Capsule, 100 MG PO BID for constipation for 30 Days, #60 CAP Prov:JUDY MAZARIEGOS MD 06/24/20 Ondansetron Hcl (ZOFRAN) 4 Mg Tablet, 1 TAB PO Q6HRS PRN for NAUSEA/VOMITING for 4 Days, #10 TAB 0 Refills Prov:MILAN VELOZ WEED CONTROL INSPECTOR 07/31/19 Reported Medications Hydroxyurea (HYDROXYUREA) 500 Mg Capsule, 1500 MG PO DAILY for sickle cell, CAP 06/21/20 Multivitamin (MULTIVITAMINS) 1 Each Capsule, 1 CAP PO DAILY for supplement for 30 Days, #30 CAP 0 Refills 06/20/20 [Folic Acid] No Conflict Check, 1 MG PO DAILY 06/20/20 Oxycodone Hcl (OXYCODONE HCL IMMED.RELEASE) 10 Mg Tablet, 2 TAB PO Q4HRS PRN for pain MDD 4 Tablet(s) for 30 Days, #120 TAB 0 Refills 03/26/20 Scheduled Docusate Sodium (Dok), 100 MG PO BID Hydroxyurea (Hydroxyurea), 1,500 MG PO DAILY, (Reported) Multivitamin (Multivitamins), 1 CAP PO DAILY, (Reported) Polyethylene Glycol 3350 (Polyethylene Glycol 3350), 17 GM PO BID [Folic Acid], 1 MG PO DAILY, (Reported) Scheduled PRN Magnesium Hydroxide (Milk Of Magnesia), 2,400 MG PO PRN Q12HR PRN for CONSTIPATION Ondansetron Hcl (Zofran), 1 TAB PO Q6HRS PRN for NAUSEA/VOMITING Oxycodone Hcl (Oxycodone Hcl Immed.release), 2 TAB PO Q4HRS PRN for pain, (Reported) Total Time: Total Time: Total time spent was 45 minutes in preparing scripts, discharge planning with SW and RN, and preparing this discharge summary. Patient seen and examined on day of discharge. Justicifation of Admission Dx: Justifications for Admission: Justification of Admission Dx: N/A Aspiration Pneumonia: Hemodynamic Instability Sepsis: Dehydration Angina: Cresendo Worsening of Sym JUDY MAZARIEGOS MD Jun 25, 2020 19:43
== END 2020-06-24 14:24 | disposition home or self-care (01) | DRG 812 ==
LOC: ER 11:29 → ED HOLD 13:42 → 5 NORTH 15:01
PROVIDERS: ADMIT Family Medicine; ATTEND Family Medicine
DX: D57.00 Hb-SS disease with crisis, unspecified (principal); F17.210 Nicotine dependence, cigarettes, uncomplicated; F32.9 Major depressive disorder, single episode, unspecified; G89.29 Other chronic pain; K59.00 Constipation, unspecified; Z82.49 Family history of ischemic heart disease and other diseases of the circulatory system
CPT/HCPCS: 36415; 71045; 80048; 80053; 81001; 83615; 83690; 83735; 84484; 85007; 85025; 85045; 85610; 87040; 93005; 96361; 96374; 96375; 96376; J0456; J0696; J2270; J2405; J3010; J3490; J7030; J7060; 99285-25; G0378

== ENCOUNTER 2020-06-27 20:46 | Emergency (ER) | payer BC, MEDICARE ==
[~2020-06-27] VITALS: Ht 175.3 cm; Wt 77.0 kg
[~2020-06-27 20:46] MED LIST changes: +DOCU-153 PO; +FOLIC ACID PO; +HYDR500C16 PO; +MAGN400O7 PO; +MULT1CAP15 PO; +POLY17PO28 PO
[2020-06-27 20:54] VITALS: BP 139/70
--- NOTE | 2020-06-27 21:27 | ED.ADGEN ---
Past Medical History Past Medical History: Other Additional Past Medical Histor: Sickle cell Past Surgical History: No Surgical History Additional Past Surgical Histo: L HIP BONE GRAFT Smoking Status: Light Tobacco Smoker Alcohol Use: None Drug Use: Marijuana General Adult EDM: Chief Complaint: PAIN CONTROL HPI: HPI: Patient is a 25 year old AA male who presents to the emergency department with a request for a return to work note. Patient reports that he was recently admitted here and treated for sickle cell crisis. Patient states he has been unable to return to his job at [employer] and he needs a note to excuse him from work. Patient reports that he is still been having to take his OxyContin regularly to treat his sickle cell pain. He denies any fever, cough, chest pain, shortness of breath, abdominal pain, nausea, vomiting, diarrhea, or fatigue. He currently rates his pain 8 out of 10 on the pain scale, he reports he has been taking OxyContin at home but has not taken any since about 1 PM because he was going to try to go to work. Patient denies any need for pain medication at this time reports he will take OxyContin when he goes home. Review of Systems: Review of Systems: Complete ROS is negative unless otherwise noted in HPI. Allergies: Allergies: Allergies Coded Allergies Type Severity Reaction Last Updated Verified No Known Drug Allergies 11/06/17 No Physical Exam: PE: See Above Constitutional: Well developed, well nourished, no acute distress, non-toxic appearance. [] HENT: Normocephalic, atraumatic, bilateral external ears normal, nose normal. [] Eyes: PERRLA, EOMI, conjunctiva normal, no discharge. [] Neck: Normal range of motion, no stridor. [] Cardiovascular:Heart rate regular rhythm Lungs & Thorax: Respirations even and unlabored, no retractions, no respiratory distress Skin: Warm, dry, no erythema, no rash. [] Extremities: No cyanosis, ROM intact, no edema. [] Neurologic: Alert and oriented X 3, no focal deficits noted. [] Psychologic: Affect normal, judgement normal, mood normal. [] Current Patient Data: Vital Signs: Vital Signs Date Time Temp Pulse Resp B/P (MAP) Pulse Ox O2 Delivery O2 Flow Rate FiO2 11//20 20:54 98.7 63 16 139/70 (93) 94 Room Air 98.7 EKG: EKG: [] Heart Score: Risk Factors: Risk Factors: DM, Current or recent (<one month) smoker, HTN, HLP, family history of CAD, obesity. Risk Scores: Score 0 - 3: 2.5% MACE over next 6 weeks - Discharge Home Score 4 - 6: 20.3% MACE over next 6 weeks - Admit for Clinical Observation Score 7 - 10: 72.7% MACE over next 6 weeks - Early Invasive Strategies Radiology/Procedures: Radiology/Procedures: [] Course & Med Decision Making: Course & Med Decision Making Pertinent Labs and Imaging studies reviewed. (See chart for details) []I have reviewed the PA/GAMING SURVEILLANCE OBSERVER's note and Plan of Care. I was available for consultation as needed during the patient's visit in the emergency department. I agree with the clinical impression, plans and disposition. Candelario Disclaimer: Candelario Disclaimer: This electronic medical record was generated, in whole or in part, using a voice recognition dictation system. Departure Departure Impression: Primary Impression: Encounter to obtain excuse from work Additional Impression: Chronic pain syndrome Disposition: 01 DC HOME SELF CARE/HOMELESS Condition: STABLE Referrals: NO PCP (PCP) Patient Instructions: Chronic Pain Additional Instructions: Continue taking your home pain medication as prescribed. Off work for 1 to 2 days, follow-up with your primary care doctor next week. Return to the ER if symptoms worsen. Problem Qualifiers MILAN VELOZ APRN Jun 27, 2020 21:27 KATRINA PACHECO MD Jun 27, 2020 21:49
== END 2020-06-27 21:33 | disposition home or self-care (01) ==
LOC: ER 20:46
DX: G89.4 Chronic pain syndrome (principal); F12.90 Cannabis use, unspecified, uncomplicated; Z98.890 Other specified postprocedural states; Z87.891 Personal history of nicotine dependence
CPT/HCPCS: 99282

== ENCOUNTER 2020-07-18 20:41 | Emergency (ER) | payer BC, MEDICARE ==
[~2020-07-18] VITALS: Ht 175.3 cm; Wt 61.3 kg
[2020-07-18] MEDS ORDERED: IV NORMAL SALINE 1000ML BAG 1,000 ML IV ONE (21:15)
[2020-07-18] MEDS ORDERED: ONDANSETRON PF 4 MG/2 ML VIAL. IVP ONE (21:30)
[2020-07-18] MEDS ORDERED: fentaNYL PF VIAL 100 MCG/2 ML VIAL IVP ONE ×2 (21:30→22:45)
--- NOTE | 2020-07-18 21:49 | PHYS DOC ---
Past Medical History Past Medical History: Other Additional Past Medical Histor: Sickle cell Past Surgical History: No Surgical History Additional Past Surgical Histo: L HIP BONE GRAFT Smoking Status: Light Tobacco Smoker Additional Information: pt reports using [employer] Alcohol Use: None Drug Use: Marijuana General Adult EDM: Chief Complaint: PAIN CONTROL HPI: HPI: Patient is a 25 year old male with past medical history sickle cell presents with a chief complaint of sickle cell pain. Patient states his pain is been ongoing for 3 days. Is in its typical locations which include his back. Patient states he has had some nausea denies any vomiting. Patient states he has been taking his home medications with minimal relief. Well-known to me--requesting his typical treatments was include IV fluids and fentanyl. Also requesting a Covid test. Patient states he has had a sore throat and did have an episode of diarrhea. Review of Systems: Review of Systems: Constitutional: Denies fever or chills. [] Eyes: Denies change in visual acuity. [] HENT: Denies nasal congestion positive sore throat. [] Respiratory: Denies cough or shortness of breath. [] Cardiovascular: Denies chest pain or edema. [] GI: Denies abdominal pain, nausea, vomiting, bloody stools positive diarrhea. [] : Denies dysuria. [] Musculoskeletal: Denies joint pain. [positive back pain] Integument: Denies rash. [] Neurologic: Denies headache, focal weakness or sensory changes. [] Endocrine: Denies polyuria or polydipsia. [] Lymphatic: Denies swollen glands. [] Psychiatric: Denies depression or anxiety. [] Heart Score: Risk Factors: Risk Factors: DM, Current or recent (<one month) smoker, HTN, HLP, family history of CAD, obesity. Risk Scores: Score 0 - 3: 2.5% MACE over next 6 weeks - Discharge Home Score 4 - 6: 20.3% MACE over next 6 weeks - Admit for Clinical Observation Score 7 - 10: 72.7% MACE over next 6 weeks - Early Invasive Strategies Current Medications: Current Medications Medications (Trade) Dose Ordered Sig/Glenis Start Time Stop Time Status Last Admin Dose Admin Fentanyl Citrate (Fentanyl 2ml Vial) 75 mcg 1X ONCE 07/18/20 21:30 07/18/20 21:31 DC 07/18/20 21:32 75 MCG Ondansetron HCl (Zofran) 4 mg 1X ONCE 07/18/20 21:30 07/18/20 21:31 DC 07/18/20 21:32 4 MG Sodium Chloride 1,000 ml @ 1,000 mls/hr 1X ONCE 07/18/20 21:15 07/18/20 22:14 07/18/20 21:15 1,000 MLS/HR Allergies: Allergies: Allergies Coded Allergies Type Severity Reaction Last Updated Verified No Known Drug Allergies 11/06/17 No Physical Exam: PE: Constitutional: Well developed, well nourished, no acute distress, non-toxic appearance. [] HENT: Normocephalic, atraumatic, bilateral external ears normal, oropharynx moist, no oral exudates, nose normal. [] Eyes: PERRLA, EOMI, conjunctiva normal, no discharge. [] Neck: Normal range of motion, no tenderness, supple, no stridor. [] Cardiovascular:Heart rate regular rhythm, no murmur [] Lungs & Thorax: Bilateral breath sounds clear to auscultation [] Abdomen: Bowel sounds normal, soft, no tenderness, no masses, no pulsatile masses. [] Skin: Warm, dry, no erythema, no rash. [] Back: No tenderness, no CVA tenderness. [] Extremities: No tenderness, no cyanosis, no clubbing, ROM intact, no edema. [] Neurologic: Alert and oriented X 3, normal motor function, normal sensory function, no focal deficits noted. [] Psychologic: Affect normal, judgement normal, mood normal. [] Current Patient Data: Vital Signs: Vital Signs Date Time Temp Pulse Resp B/P (MAP) Pulse Ox O2 Delivery O2 Flow Rate FiO2 07/18/20 21:32 24 96 Room Air 07/18/20 20:45 98.7 93 138/80 (99) 98.7 EKG: EKG: [] Radiology/Procedures: Radiology/Procedures: [] Course & Med Decision Making: Course & Med Decision Making Pertinent Labs and Imaging studies reviewed. (See chart for details) [] Patient treated with 1 L IV fluids he received fentanyl x2. Patient's pain improved post treatment. Patient states he is running out of his oxycodone and received a prescription for 15 tablets. Candelario Disclaimer: Candelario Disclaimer: This electronic medical record was generated, in whole or in part, using a voice recognition dictation system. Departure Departure Impression: Primary Impression: Sickle cell pain crisis Additional Impression: Chronic pain syndrome Disposition: 01 DC HOME SELF CARE/HOMELESS Condition: STABLE Referrals: NO PCP (PCP) Patient Instructions: Chronic Pain Additional Instructions: You have been tested for or diagnosed with COVID-19. It is an infection caused by a new type of coronavirus. COVID-19 will cause cold-like or mild flu symptoms in most. It can cause more severe symptoms like problems breathing in some. There is no treatment for COVID-19. The body will clear the infection over time. Self-care will help to ease discomfort. Steps to Take: Self-Care Rest as needed. Healthy habits may help you feel better. Steps include: Choose healthy foods including fruits and vegetables. Drink water throughout the day. Get plenty of sleep each night. If you smoke, try to quit. It may ease breathing. Avoid alcohol. Keep Others Healthy The virus can spread to others. Droplets are released every time you sneeze or cough. The droplets can get into the mouth, nose, or eyes of people near you and lead to infection. To lower the chances of spreading COVID-19 to others: Stay at home until your doctor has said it is safe to leave. If you tested positive this will mean staying isolated until both of the following are true: At least 7 days have passed since the start of illness. You are free of fever for at least 72 hours without the use of medicine. During this time: - Avoid public areas, events, or transportation. Do not return to work or school until your doctor has said it is safe to do so. - Call ahead if you need to go to a medical center. Let them know you may have COVID-19. It will help them guide you where to go. They may also ask you to wear a facemask when you come to the office. - If you call for emergency medical services, let them know you may have COVID- 19. While at home: - Try to avoid close contact with others. Stay about 6 feet away. - If possible, spend most of your time in a separate room from others. - Use a face mask if you will be in close contact with others such as sharing a room or vehicle. - Have someone wipe down common surfaces in the home. Use household rehabilitation clerk every day on areas like doorknobs, counters, or sinks. - Cough or sneeze into a tissue. Throw the tissue away right after use. If a tissue is not available, cough or sneeze into your elbow. - Wash your hands often. Wash them after sneezing or coughing. Use soap and water and wash for at least 20 seconds. Alcohol based hand industrial sweeper cleaner can be used if soap and water is not available. - Do not prepare food for others. Avoid sharing personal items like forks, spoons, or toothbrushes. - Avoid close contact with pets while you are sick. There is no evidence of the virus passing to pets. This is a safety step until more is known about this virus. Isolation can be frustrating. Social interaction can help. Keep in touch with friends and family through phone and tech options. You can still interact with others in your home, just keep a safe distance of about 6 feet. Follow-up: Your doctors office will check in with you to see if there are any changes in your health. You may be asked to keep track of symptoms to share with them. They will also let you know when you are clear to be in public again. Problems to Look Out For: Contact your doctor if your recovery is not going as you expect. Get emergency care if you have problems such as: - Trouble breathing - Nonstop chest pain or pressure - Changes in awareness, confusion, or problems waking - Lips or face have bluish color - Worsening of symptoms If you think you have an emergency, call for emergency medical services right away. As taken from [employer] [facility] Oxycodone Hcl (OXYCODONE HCL IMMED.RELEASE) 15 Mg Tablet 15 MG PO PRN Q6HRS PRN for PAIN for 14 Days, #14 TAB 0 Refills Prov: JAYY PRESLEY I DO 07/18/20 JAYY PRESLEY I DO Jul 18, 2020 21:49
[2020-07-18 21:53] VITALS: BP 119/65
[2020-07-18] MEDS ORDERED: OXYC15TA3 PO (22:58)
== END 2020-07-18 23:24 | disposition home or self-care (01) ==
LOC: ER 20:41
DX: D57.00 Hb-SS disease with crisis, unspecified (principal); G89.4 Chronic pain syndrome; Z20.828 Contact with and (suspected) exposure to other viral communicable diseases; Z72.0 Tobacco use; J02.9 Acute pharyngitis, unspecified; R19.7 Diarrhea, unspecified
CPT/HCPCS: 96361; 96374; 96375; 96376; 99284; C9803; J2405; J3010; J7030; U0003; 99285-25

== ENCOUNTER 2020-07-23 11:47 | Emergency (ER) | payer BC, MEDICARE ==
[~2020-07-23] VITALS: Ht 175.3 cm; Wt 77.2 kg
[2020-07-23] MEDS ORDERED: fentaNYL PF VIAL 100 MCG/2 ML VIAL IVP ONE ×3 (12:45→16:00)
[2020-07-23] MEDS ORDERED: IV NORMAL SALINE 1000ML BAG 1,000 ML IV SCH (12:45)
[2020-07-23] MEDS ORDERED: ONDANSETRON PF 4 MG/2 ML VIAL. IVP ONE (12:45)
[2020-07-23 12:58] LABS: BASO # 0.2 x10^3/uL (0.0-0.2); BASO % 1 % (0-3); EOS # 0.1 x10^3/uL (0.0-0.7); EOS % 1 % (0-3); HEMOGLOBIN 9.4 g/dL (13.0-17.5); LYMPH % 22 % (24-48); MEAN CORPUSCULAR HEMOGLOBIN 30 pg (25-35); MEAN CORPUSCULAR HGB CONC 36 g/dL (31-37); MEAN CORPUSCULAR VOLUME 82 fL (79-100); MONO # 1.1 x10^3/uL (0.0-1.1); MONO % 8 % (0-9); NEUT # 9.3 x10^3/uL (1.8-7.7); NEUT % 68 % (31-73); PLATELET COUNT 268 x10^3/uL (140-400); RED BLOOD COUNT 3.17 x10^6/uL (4.30-5.70); RED CELL DISTRIBUTION WIDTH 24.4 % (11.5-14.5); WHITE BLOOD COUNT 13.7 x10^3/uL (4.0-11.0)
[2020-07-23 13:19] LABS: ANISOCYTOSIS MOD; PLT ESTIMATE ADEQUATE (ADEQUATE); SICKLE CELLS MOD; TARGET CELLS FEW
[2020-07-23 13:20] LABS: POLYCHROMASIA OCCASIONAL
[2020-07-23 13:21] LABS: POIKILOCYTOSIS PRESENT
--- NOTE | 2020-07-23 13:22 | PHYS DOC ---
Past Medical History Past Medical History: Sickle Cell Disease Additional Past Medical Histor: Sickle cell Past Surgical History: No Surgical History Additional Past Surgical Histo: L HIP BONE GRAFT Smoking Status: Current Every Day Smoker Alcohol Use: None Drug Use: Marijuana General Adult EDM: Chief Complaint: PAIN CONTROL HPI: HPI: Patient is a 25 year old male who presents with states he was at the pain clinic yesterday for sickle cell was given a prescription for OxyContin. He states he got it filled but is not helping his pain. He states he has pain to the back of both of his legs. He states this is his normal pain for his sickle cell. He states that the clinic they usually give him 100mcg of fentanyl and it helps. Rates his pain 10 out of 10. Patient denies chest pain, shortness of air, abdominal pain, nausea, vomiting, diarrhea, fever, cough, back pain, headache, numbness or tingling, dizziness, vision changes, focal weakness. Review of Systems: Review of Systems: Constitutional: Denies fever or chills. [] Eyes: Denies change in visual acuity. [] HENT: Denies nasal congestion or sore throat. [] Respiratory: Denies cough or shortness of breath. [] Cardiovascular: Denies chest pain or edema. [] GI: Denies abdominal pain, nausea, vomiting, bloody stools or diarrhea. [] : Denies dysuria. [] Musculoskeletal: Denies back pain or joint pain. +Bilateral back of leg pain [] Integument: Denies rash. [] Neurologic: Denies headache, focal weakness or sensory changes. [] Endocrine: Denies polyuria or polydipsia. [] Lymphatic: Denies swollen glands. [] Psychiatric: Denies depression or anxiety. [] Heart Score: Risk Factors: Risk Factors: DM, Current or recent (<one month) smoker, HTN, HLP, family history of CAD, obesity. Risk Scores: Score 0 - 3: 2.5% MACE over next 6 weeks - Discharge Home Score 4 - 6: 20.3% MACE over next 6 weeks - Admit for Clinical Observation Score 7 - 10: 72.7% MACE over next 6 weeks - Early Invasive Strategies Current Medications: Current Medications Medications (Trade) Dose Ordered Sig/Glenis Start Time Stop Time Status Last Admin Dose Admin Fentanyl Citrate (Fentanyl 2ml Vial) 75 mcg 1X ONCE 07/23/20 12:45 07/23/20 12:46 DC 07/23/20 12:55 75 MCG Ondansetron HCl (Zofran) 4 mg 1X ONCE 07/23/20 12:45 07/23/20 12:46 DC 07/23/20 12:53 4 MG Sodium Chloride 1,000 ml @ 1,000 mls/hr Q1H 07/23/20 12:45 07/23/20 13:44 07/23/20 12:54 1,000 MLS/HR Allergies: Allergies: Allergies Coded Allergies Type Severity Reaction Last Updated Verified No Known Drug Allergies 11/06/17 No Physical Exam: PE: Constitutional: Well developed, well nourished, no acute distress, non-toxic appearance. [] HENT: Normocephalic, atraumatic, bilateral external ears normal, oropharynx moist, no oral exudates, nose normal. [] Eyes: PERRLA, EOMI, conjunctiva normal, no discharge. [] Neck: Normal range of motion, no tenderness, supple, no stridor. [] Cardiovascular:Heart rate regular rhythm, no murmur [] Lungs & Thorax: Bilateral breath sounds clear to auscultation [] Abdomen: Bowel sounds normal, soft, no tenderness, no masses, no pulsatile masses. [] Skin: Warm, dry, no erythema, no rash. [] Back: No tenderness, no CVA tenderness. [] Extremities: No tenderness, no cyanosis, no clubbing, ROM intact, no edema. [] Neurologic: Alert and oriented X 3, normal motor function, normal sensory function, no focal deficits noted. [] Psychologic: Affect normal, judgement normal, mood normal. Normal physical exam [] Current Patient Data: Labs: Laboratory Tests Test 07/23/20 12:45 White Blood Count 13.7 x10^3/uL (4.0-11.0) H Red Blood Count 3.17 x10^6/uL (4.30-5.70) L Hemoglobin 9.4 g/dL (13.0-17.5) L Hematocrit 26.0 % (39.0-53.0) L Mean Corpuscular Volume 82 fL (79-100) Mean Corpuscular Hemoglobin 30 pg (25-35) Mean Corpuscular Hemoglobin Concent 36 g/dL (31-37) Red Cell Distribution Width 24.4 % (11.5-14.5) H Platelet Count 268 x10^3/uL (140-400) Neutrophils (%) (Auto) 68 % (31-73) Lymphocytes (%) (Auto) 22 % (24-48) L Monocytes (%) (Auto) 8 % (0-9) Eosinophils (%) (Auto) 1 % (0-3) Basophils (%) (Auto) 1 % (0-3) Neutrophils # (Auto) 9.3 x10^3/uL (1.8-7.7) H Lymphocytes # (Auto) 3.0 x10^3/uL (1.0-4.8) Monocytes # (Auto) 1.1 x10^3/uL (0.0-1.1) Eosinophils # (Auto) 0.1 x10^3/uL (0.0-0.7) Basophils # (Auto) 0.2 x10^3/uL (0.0-0.2) Platelet Estimate Pending Absolute Reticulocyte Count 0.131 x10^6/uL (0.020-0.120) Percent Reticulocyte Count 4.1 % (0.5-2.3) H Immature Reticulocyte Fraction 0.63 (0.20-0.60) H Laboratory Tests 07/23/20 12:45 Vital Signs: Vital Signs Date Time Temp Pulse Resp B/P (MAP) Pulse Ox O2 Delivery O2 Flow Rate FiO2 07/23/20 12:55 20 93 Room Air 07/23/20 12:05 98.6 93 123/85 (98) 98.6 EKG: EKG: [] Radiology/Procedures: Radiology/Procedures: [] Course & Med Decision Making: Course & Med Decision Making Pertinent Labs and Imaging studies reviewed. (See chart for details) See HPI. Speaks in full complete sentences. Alert and oriented x4. Ambulatory with a steady gait. No unilateral leg swelling. There is no extremity swelling. Vital signs within normal limits. Patient is given 75 mcg of fentanyl in the ED. And normal saline fluid. He states that he is feeling slightly better after the medicine. Patient was given a liter of normal saline and 2 doses of 75mcg fentanyl and 1 dose of 50mcg fentanyl prior to discharge. Patient is offered admission. He states he is feeling somewhat better and he wants to go home and try to just stay taking his own medication. He states he does not want to be admitted. Blood work does not show acute crisis. Patient remains stable and in no distress. [] Candelario Disclaimer: Candelario Disclaimer: This electronic medical record was generated, in whole or in part, using a voice recognition dictation system. Departure Departure Impression: Primary Impression: Sickle cell pain crisis Disposition: 01 DC HOME SELF CARE/HOMELESS Condition: STABLE Referrals: UNKNOWN PCP NAME (PCP) Patient Instructions: Sickle Cell Pain Crisis Additional Instructions: Follow-up with your pain clinic. Take medication only as prescribed. Drink plenty of fluids. Return for chest pain or shortness of air. GERALD NGO LACING CUTTER Jul 23, 2020 13:22
[2020-07-23 13:26] LABS: CREATININE 0.6 mg/dL (0.7-1.3)
[2020-07-23 13:31] LABS: ALBUMIN 4.3 g/dL (3.4-5.0); ALBUMIN/GLOBULIN RATIO 1.4 (1.0-1.7); TOTAL BILIRUBIN 2.8 mg/dL (0.2-1.0); TOTAL PROTEIN 7.4 g/dL (6.4-8.2)
[2020-07-23 13:32] LABS: CALCIUM 8.9 mg/dL (8.5-10.1)
[2020-07-23 15:59] VITALS: BP 110/57
== END 2020-07-23 16:22 | disposition home or self-care (01) ==
LOC: ER 11:47
DX: D57.819 Other sickle-cell disorders with crisis, unspecified (principal); M79.605 Pain in left leg; M79.604 Pain in right leg; F17.200 Nicotine dependence, unspecified, uncomplicated; F12.90 Cannabis use, unspecified, uncomplicated; Z98.890 Other specified postprocedural states
CPT/HCPCS: 36415; 80053; 83690; 84484; 85025; 85045; 96361; 96374; 96375; 96376; 99285; J2405; J3010; J7030

== ENCOUNTER 2020-08-04 07:29 | Emergency (ER) | payer BC, MEDICARE ==
[~2020-08-04] VITALS: Ht 175.3 cm; Wt 78.5 kg
--- NOTE | 2020-08-04 07:58 | PHYS DOC ---
Past Medical History Past Medical History: Sickle Cell Disease Additional Past Medical Histor: Sickle cell Past Surgical History: No Surgical History Additional Past Surgical Histo: L HIP BONE GRAFT Smoking Status: Never Smoker Alcohol Use: None Drug Use: Marijuana General Adult EDM: Chief Complaint: OTHER COMPLAINTS HPI: HPI: History obtained from patient. Patient is a 25-year-old male with past medical history significant for sickle cell anemia who presents with chief complaint of body pain. He states he has pain in his upper back, lower back, and heels bilaterally. He states this is typical of his pain crises. He notes that he takes 50 mg of oxycodone every 4-6 hours as needed for pain. He states he ran out of his medication approximately 8 hours prior to arrival. He states he does have an appointment with his open hearth worker tomorrow [facility]. Hospitalizations for sickle cell anemia. Denies any history of infections related to his sickle cell anemia or splenectomy. Denies any chest pain or cough. He denies any shortness of breath or fever. Denies any known exposure coronavirus. [place] any abdominal pain or vomiting. States that the pain is aching in nature. States his pain is typical of his flares. Denies any other complaints. Patient denies any urinary retention, stool incontinence, saddle anesthesia, history of IV drug use, or history of cancer. Review of Systems: Review of Systems: Constitutional: Denies fever or chills. [] Eyes: Denies change in visual acuity. [] HENT: Denies nasal congestion or sore throat. [] Respiratory: Denies cough or shortness of breath. [] Cardiovascular: Denies chest pain or edema. [] GI: Denies abdominal pain, nausea, vomiting, bloody stools or diarrhea. [] : Denies dysuria. [] Musculoskeletal: Positive for back pain Integument: Denies rash. [] Neurologic: Denies headache, focal weakness or sensory changes. [] Endocrine: Denies polyuria or polydipsia. [] Lymphatic: Denies swollen glands. [] Psychiatric: Denies depression or anxiety. [] Heart Score: Risk Factors: Risk Factors: DM, Current or recent (<one month) smoker, HTN, HLP, family history of CAD, obesity. Risk Scores: Score 0 - 3: 2.5% MACE over next 6 weeks - Discharge Home Score 4 - 6: 20.3% MACE over next 6 weeks - Admit for Clinical Observation Score 7 - 10: 72.7% MACE over next 6 weeks - Early Invasive Strategies Current Medications: Current Medications Medications (Trade) Dose Ordered Sig/Glenis Start Time Stop Time Status Last Admin Dose Admin Fentanyl Citrate (Fentanyl 2ml Vial) 100 mcg 1X ONCE 08/04/20 08:00 08/04/20 08:01 Oxycodone HCl (OxyCONTIN) 15 mg Q12HR 08/04/20 09:00 Sodium Chloride 1,000 ml @ 1,000 mls/hr 1X ONCE 08/04/20 08:00 08/04/20 08:59 Allergies: Allergies: Allergies Coded Allergies Type Severity Reaction Last Updated Verified No Known Drug Allergies 11/06/17 No Physical Exam: PE: Constitutional: Well developed, well nourished, no acute distress, non-toxic appearance. [] HENT: Normocephalic, atraumatic, bilateral external ears normal, oropharynx moist, no oral exudates, nose normal. [] Eyes: PERRLA, EOMI, conjunctiva normal, no discharge. [] Neck: Normal range of motion, no tenderness, supple, no stridor. [] Cardiovascular:Heart rate regular rhythm, no murmur [] Lungs & Thorax: Bilateral breath sounds clear to auscultation [] Abdomen: soft, no tenderness, no masses, no pulsatile masses. [] Skin: Warm, dry, no erythema, no rash. [] Back: + 5/5 motor strength in dorsiflexion and plantarflexion of the great toes bilaterally. Sensation intact between the webbing of the first and second toes bilaterally. Extremities: No tenderness, no cyanosis, no clubbing, ROM intact, no edema. [] Neurologic: Alert and oriented X 3, normal motor function, normal sensory function, no focal deficits noted. [] Psychologic: Affect normal, judgement normal, mood normal. [] Current Patient Data: Labs: Laboratory Tests Test 08/04/20 08:00 White Blood Count 7.0 x10^3/uL Red Blood Count 3.34 x10^6/uL Hemoglobin 9.9 g/dL Hematocrit 27.3 % Mean Corpuscular Volume 82 fL Mean Corpuscular Hemoglobin 30 pg Mean Corpuscular Hemoglobin Concent 36 g/dL Red Cell Distribution Width 24.3 % Platelet Count 462 x10^3/uL Neutrophils (%) (Auto) 46 % Lymphocytes (%) (Auto) 40 % Monocytes (%) (Auto) 11 % Eosinophils (%) (Auto) 2 % Basophils (%) (Auto) 1 % Neutrophils # (Auto) 3.2 x10^3/uL Lymphocytes # (Auto) 2.8 x10^3/uL Monocytes # (Auto) 0.8 x10^3/uL Eosinophils # (Auto) 0.1 x10^3/uL Basophils # (Auto) 0.1 x10^3/uL Platelet Estimate Pending Absolute Reticulocyte Count 0.139 x10^6/uL Percent Reticulocyte Count 4.2 % Immature Reticulocyte Fraction 0.68 Current Medications Medications (Trade) Dose Ordered Sig/Glenis Route PRN Reason Start Time Stop Time Status Last Admin Dose Admin Sodium Chloride 1,000 ml @ 1,000 mls/hr 1X ONCE IV 08/04/20 08:00 08/04/20 08:59 08/04/20 08:02 Oxycodone HCl (OxyCONTIN) 15 mg Q12HR PO 08/04/20 09:00 08/04/20 08:28 DC Fentanyl Citrate (Fentanyl 2ml Vial) 100 mcg 1X ONCE IVP 08/04/20 08:00 08/04/20 08:01 DC 08/04/20 08:16 Oxycodone HCl (OxyCONTIN) 15 mg 1X ONCE PO 08/04/20 08:30 08/04/20 08:37 DC 08/04/20 08:57 Vital Signs: Vital Signs Date Time Temp Pulse Resp B/P (MAP) Pulse Ox O2 Delivery O2 Flow Rate FiO2 08/04/20 07:40 98.4 67 16 120/63 (82) 95 Room Air 98.4 EKG: EKG: [] Radiology/Procedures: Radiology/Procedures: [][facility] [address] [place] [address] IMAGING REPORT Signed PATIENT: RASHAUN CHURCH EACCOUNT: [id number] : 1995 LOCATION: ER AGE: 25 SEX: M EXAM STATUS: REG ER ORD. PHYSICIAN: DANETTE BERGMAN DO REASON: BP. sickle cell PROCEDURE: CHEST AP ONLY EXAMINATION: XR CHEST 1V CLINICAL HISTORY: BP, chest pain, sickle cell disease EXAM DATE/TIME: 08/04/2020 8:00 AM COMPARISON: 06/11/2020 FINDINGS: Lines, Tubes, and Devices: None. Cardiomediastinal Silhouette: Stable heart size. Lungs and Pleura: Slightly decreased patchy opacities in the right lower lung zone. Mild irregularity along the lateral right hemidiaphragm. No definite pleural effusion. No pneumothorax. Bones and Soft Tissues: No acute osseous abnormality. IMPRESSION: Slightly decreased right basilar subsegmental atelectasis and/or scarring. Electronically signed by: Melvin Elam DO (08/04/2020 8:09 AM) [facility] DICTATED and SIGNED BY: MELVIN ELAM DO DATE: 08/04/20 [id number] Course & Med Decision Making: Course & Med Decision Making Pertinent Labs and Imaging studies reviewed. (See chart for details) [] Patient is a well-appearing 25-year-old male who presents with chief complaint of pain related to his sickle cell anemia. Initial vital signs unremarkable. CBC shows hemoglobin at baseline. Labs not consistent with aplastic anemia. No signs of infection on examination. Chest x-ray shows improvement of previous imaging. Patient was given fentanyl and his home dose of oral oxycodone as well as fluids. On repeat examination he states his symptoms are well controlled. He states he has run out of his pain medication but does have an appointment tomorrow. He will be given a prescription for 24- hour supply of his home oxycodone. Patient states he is feeling better and agreeable for discharge home. Return precautions were discussed and understood. Stable for discharge. Candelario Disclaimer: Candelario Disclaimer: This electronic medical record was generated, in whole or in part, using a voice recognition dictation system. Departure Departure Impression: Primary Impression: Sickle cell pain crisis Disposition: 01 DC HOME SELF CARE/HOMELESS Condition: STABLE Referrals: UNKNOWN PCP NAME (PCP) Patient Instructions: Sickle Cell Pain Crisis Additional Instructions: Please follow-up with your open hearth worker tomorrow at your regularly scheduled appointment. Scripts Oxycodone HCl (Oxycodone HCl) 5 Mg Tablet 5 MG PO PRN Q4-6HRS PRN for PAIN for 1 Day, #12 TAB 15 mg every 4-6 hours as needed for pain Prov: DANETTE BERGMAN DO 08/04/20 DANETTE BERGMAN DO Aug 04, 2020 07:58
[2020-08-04] MEDS ORDERED: IV NORMAL SALINE 1000ML BAG 1,000 ML IV ONE (08:00)
[2020-08-04] MEDS ORDERED: fentaNYL PF VIAL 100 MCG/2 ML VIAL IVP ONE (08:00)
--- NOTE | 2020-08-04 08:12 | RAD ---
EXAMINATION: XR CHEST 1V CLINICAL HISTORY: BP, chest pain, sickle cell disease EXAM DATE/TIME: 08/04/2020 8:00 AM COMPARISON: 06/11/2020 FINDINGS: Lines, Tubes, and Devices: None. Cardiomediastinal Silhouette: Stable heart size. Lungs and Pleura: Slightly decreased patchy opacities in the right lower lung zone. Mild irregularity along the lateral right hemidiaphragm. No definite pleural effusion. No pneumothorax. Bones and Soft Tissues: No acute osseous abnormality. IMPRESSION: Slightly decreased right basilar subsegmental atelectasis and/or scarring. Electronically signed by: Melvin Sweeney DO (08/04/2020 8:09 AM) [facility]
[2020-08-04 08:14] LABS: BASO # 0.1 x10^3/uL (0.0-0.2); BASO % 1 % (0-3); EOS # 0.1 x10^3/uL (0.0-0.7); EOS % 2 % (0-3); HEMATOCRIT 27.3 % (39.0-53.0); HEMOGLOBIN 9.9 g/dL (13.0-17.5); LYMPH # 2.8 x10^3/uL (1.0-4.8); LYMPH % 40 % (24-48); MEAN CORPUSCULAR HEMOGLOBIN 30 pg (25-35); MEAN CORPUSCULAR HGB CONC 36 g/dL (31-37); MEAN CORPUSCULAR VOLUME 82 fL (79-100); MONO # 0.8 x10^3/uL (0.0-1.1); MONO % 11 % (0-9); NEUT # 3.2 x10^3/uL (1.8-7.7); NEUT % 46 % (31-73); PLATELET COUNT 462 x10^3/uL (140-400); RED BLOOD COUNT 3.36 x10^6/uL (4.30-5.70); RED CELL DISTRIBUTION WIDTH 24.3 % (11.5-14.5)
[2020-08-04] MEDS ORDERED: oxyCODONE ER 15 MG TAB.ER.12H PO ONE (08:30)
[2020-08-04] MEDS ORDERED: oxyCODONE ER 15 MG TAB.ER.12H PO SCH (09:00)
[2020-08-04] MEDS ORDERED: OXYC5TAB2 PO (09:01)
[2020-08-04 09:12] LABS: PLT ESTIMATE INCREASED (ADEQUATE)
[2020-08-04 09:13] LABS: ANISOCYTOSIS PRESENT; POIKILOCYTOSIS PRESENT; POLYCHROMASIA PRESENT; SICKLE CELLS PRESENT; TARGET CELLS PRESENT
[2020-08-04 09:28] VITALS: BP 102/56
== END 2020-08-04 09:25 | disposition home or self-care (01) ==
LOC: ER 07:29
DX: D57.819 Other sickle-cell disorders with crisis, unspecified (principal); M54.5 Low back pain; M54.6 Pain in thoracic spine; F12.90 Cannabis use, unspecified, uncomplicated; Z98.890 Other specified postprocedural states
CPT/HCPCS: 36415; 71045; 85025; 85045; 96361; 96374; 99284; J3010; J7030

== ENCOUNTER 2020-08-10 12:45 | Emergency (ER) | payer BC, MEDICARE ==
[~2020-08-10] VITALS: Ht 175.3 cm; Wt 77.2 kg
[~2020-08-10 12:45] MED LIST changes: +OXYC5TAB2 PO
[2020-08-10] MEDS ORDERED: IV NORMAL SALINE 1000ML BAG 1,000 ML IV ONE (13:15)
[2020-08-10] MEDS ORDERED: MORPHINE SULFATE 4 MG/ML VIAL. IV ONE (13:15)
[2020-08-10] MEDS ORDERED: ONDANSETRON PF 4 MG/2 ML VIAL. IVP ONE (13:15)
--- NOTE | 2020-08-10 13:26 | PHYS DOC ---
Past Medical History Past Medical History: Sickle Cell Disease Additional Past Medical Histor: Sickle cell Past Surgical History: No Surgical History Additional Past Surgical Histo: L HIP BONE GRAFT Smoking Status: Never Smoker Alcohol Use: None Drug Use: Marijuana General Adult EDM: Chief Complaint: PAIN CONTROL HPI: HPI: Patient is a 25 year old male who presents with a chief complaint of sickle cell pain. Patient has a history of sickle cell disease and presents with back and lower extremity pain that is typical of his usual sickle cell pain. Pain is 10 out of 10 in severity not relieved with his home oxycodone. Pain seem to be worse with palpation on the back. Patient describes the pain as a aching discomfort. Pain is nonradiating. Patient denies any recent trauma. Patient has any fever, chills, cough, chest pain, shortness of breath. Review of Systems: Review of Systems: Constitutional: Denies fever or chills. [] Eyes: Denies change in visual acuity. [] HENT: Denies nasal congestion or sore throat. [] Respiratory: Denies cough or shortness of breath. [] Cardiovascular: Denies chest pain or edema. [] GI: Denies abdominal pain, nausea, vomiting, bloody stools or diarrhea. [] : Denies dysuria. [] Musculoskeletal: Complains of back pain and leg pain Integument: Denies rash. [] Neurologic: Denies headache, focal weakness or sensory changes. [] Endocrine: Denies polyuria or polydipsia. [] Lymphatic: Denies swollen glands. [] Psychiatric: Denies depression or anxiety. [] Heart Score: Risk Factors: Risk Factors: DM, Current or recent (<one month) smoker, HTN, HLP, family history of CAD, obesity. Risk Scores: Score 0 - 3: 2.5% MACE over next 6 weeks - Discharge Home Score 4 - 6: 20.3% MACE over next 6 weeks - Admit for Clinical Observation Score 7 - 10: 72.7% MACE over next 6 weeks - Early Invasive Strategies Current Medications: Current Medications Sodium Chloride 1,000 ml @ 1,000 mls/hr 1X ONCE IV Last administered on 08/10/20at 13:52; Start 08/10/20 at 13:15; Stop 08/10/20 at 14:14; Status DC Morphine Sulfate (Morphine Sulfate) 4 mg 1X ONCE IV Last administered on 08/10/20at 13:53; Start 08/10/20 at 13:15; Stop 08/10/20 at 13:16; Status DC Ondansetron HCl (Zofran) 4 mg 1X ONCE IVP Last administered on 08/10/20at 13:52; Start 08/10/20 at 13:15; Stop 08/10/20 at 13:16; Status DC Fentanyl Citrate (Fentanyl 2ml Vial) 75 mcg 1X ONCE IVP ; Start 08/10/20 at 14:30; Stop 08/10/20 at 14:31; Status UNV Active Scripts Active Oxycodone HCl 5 Mg Tablet 5 Mg PO PRN Q4-6HRS PRN 1 Days 15 mg every 4-6 hours as needed for pain Oxycodone Hcl Immed.release (Oxycodone Hcl) 15 Mg Tablet 15 Mg PO PRN Q6HRS PRN 14 Days Polyethylene Glycol 3350 17 Gm Powd.pack 17 Gm PO BID 30 Days Milk Of Magnesia (Magnesium Hydroxide) 400 Mg/5 Ml Oral.susp 2,400 Mg PO PRN Q12HR PRN 30 Days Dok (Docusate Sodium) 100 Mg Capsule 100 Mg PO BID 30 Days Zofran (Ondansetron Hcl) 4 Mg Tablet 1 Tab PO Q6HRS PRN 4 Days Reported Hydroxyurea 500 Mg Capsule 1,500 Mg PO DAILY Multivitamins (Multivitamin) 1 Each Capsule 1 Cap PO DAILY 30 Days [Folic Acid] 1 Mg PO DAILY Oxycodone Hcl Immed.release (Oxycodone Hcl) 10 Mg Tablet 2 Tab PO Q4HRS PRN MDD 4 Tablet(s) 30 Days Current Medications Medications (Trade) Dose Ordered Sig/Glenis Start Time Stop Time Status Last Admin Dose Admin Morphine Sulfate (Morphine Sulfate) 4 mg 1X ONCE 08/10/20 13:15 08/10/20 13:16 DC Ondansetron HCl (Zofran) 4 mg 1X ONCE 08/10/20 13:15 08/10/20 13:16 DC Sodium Chloride 1,000 ml @ 1,000 mls/hr 1X ONCE 08/10/20 13:15 08/10/20 14:14 Allergies: Allergies: Allergies Coded Allergies Type Severity Reaction Last Updated Verified No Known Drug Allergies 11/06/17 No Physical Exam: PE: Constitutional: Well developed, well nourished, no acute distress, non-toxic appearance. [] HENT: Normocephalic, atraumatic, bilateral external ears normal, no trismus nose normal. [] Eyes: PERRLA, EOMI, conjunctiva normal, no discharge. [] Neck: Normal range of motion, no tenderness, supple, no stridor. [] No meningeal signs Cardiovascular:Heart rate regular rhythm, peripheral pulses intact cap refills less than 2 seconds Lungs & Thorax: Bilateral breath sounds clear to auscultation [] Abdomen: soft, no tenderness, no masses, no pulsatile masses. [] Skin: Warm, dry, no erythema, no rash. [] Back: Diffuse back tenderness Extremities: No tenderness, no cyanosis, no clubbing, ROM intact, no edema. [] Neurologic: Alert and oriented X 3, normal motor function, normal sensory funct ion, no focal deficits noted. [] Psychologic: Affect normal, judgement normal, mood normal. [] Current Patient Data: Labs: Laboratory Tests Test 08/10/20 13:45 White Blood Count 9.5 x10^3/uL Red Blood Count 3.45 x10^6/uL Hemoglobin 10.1 g/dL Hematocrit 27.6 % Mean Corpuscular Volume 82 fL Mean Corpuscular Hemoglobin 30 pg Mean Corpuscular Hemoglobin Concent 36 g/dL Red Cell Distribution Width 24.4 % Platelet Count 419 x10^3/uL Neutrophils (%) (Auto) 65 % Lymphocytes (%) (Auto) 22 % Monocytes (%) (Auto) 11 % Eosinophils (%) (Auto) 1 % Basophils (%) (Auto) 1 % Neutrophils # (Auto) 6.2 x10^3/uL Lymphocytes # (Auto) 2.1 x10^3/uL Monocytes # (Auto) 1.0 x10^3/uL Eosinophils # (Auto) 0.1 x10^3/uL Basophils # (Auto) 0.1 x10^3/uL Platelet Estimate Increased Giant Platelets Present Polychromasia Present Poikilocytosis Marked Anisocytosis Mod Sickle Cells Present Target Cells Present Absolute Reticulocyte Count 0.157 x10^6/uL Percent Reticulocyte Count 4.6 % Immature Reticulocyte Fraction 0.66 Sodium Level 138 mmol/L Potassium Level 4.2 mmol/L Chloride Level 103 mmol/L Carbon Dioxide Level 24 mmol/L Anion Gap 11 Blood Urea Nitrogen 5 mg/dL Creatinine 0.5 mg/dL Estimated GFR (Cockcroft-Gault) 249.3 BUN/Creatinine Ratio 10 Glucose Level 91 mg/dL Calcium Level 9.0 mg/dL Total Bilirubin 2.9 mg/dL Aspartate Amino Transf (AST/SGOT) 72 U/L Alanine Aminotransferase (ALT/SGPT) 33 U/L Alkaline Phosphatase 114 U/L Total Protein 8.0 g/dL Albumin 4.4 g/dL Albumin/Globulin Ratio 1.2 Current Medications Medications (Trade) Dose Ordered Sig/Glenis Route PRN Reason Start Time Stop Time Status Last Admin Dose Admin Sodium Chloride 1,000 ml @ 1,000 mls/hr 1X ONCE IV 08/10/20 13:15 08/10/20 14:14 DC 08/10/20 13:52 Morphine Sulfate (Morphine Sulfate) 4 mg 1X ONCE IV 08/10/20 13:15 08/10/20 13:16 DC 08/10/20 13:53 Ondansetron HCl (Zofran) 4 mg 1X ONCE IVP 08/10/20 13:15 08/10/20 13:16 DC 08/10/20 13:52 Fentanyl Citrate (Fentanyl 2ml Vial) 75 mcg 1X ONCE IVP 08/10/20 14:30 08/10/20 14:31 UNV Vital Signs: Vital Signs Date Time Temp Pulse Resp B/P (MAP) Pulse Ox O2 Delivery O2 Flow Rate FiO2 08/10/20 13:53 16 98 08/10/20 13:27 99.3 84 18 142/67 (92) 95 Room Air 99.3 EKG: EKG: [] Radiology/Procedures: Radiology/Procedures: [] Course & Med Decision Making: Course & Med Decision Making Pertinent Labs and Imaging studies reviewed. (See chart for details) [] 25-year-old male presents with his typical sickle cell pain. Patient's lab work is reassuring. Patient does not appear to be in aplastic crisis. Patient's hemoglobin is at baseline or better. Patient reassessed at 2:25 PM and pain is somewhat improved and he is asking for a dose of fentanyl before he leaves. Dragon Disclaimer: Dragon Disclaimer: This electronic medical record was generated, in whole or in part, using a voice recognition dictation system. Departure Departure Impression: Primary Impression: Sickle cell pain crisis Disposition: 01 DC HOME SELF CARE/HOMELESS Condition: STABLE Referrals: UNKNOWN PCP NAME (PCP) Follow-up with your primary care physician in 2 to 3 days Patient Instructions: Sickle Cell Pain Crisis Additional Instructions: EMERGENCY DEPARTMENT GENERAL DISCHARGE INSTRUCTIONS THANK YOU for coming to [facility] Emergency Department (ED) today and trusting us with your care. We trust that you had a positive experience in our Emergency Department. If you wish to speak to the department Management you can contact the aquatics assistant department head at . YOUR FOLLOW UP INSTRUCTIONS ARE FOLLOWS: Do you have a private doctor? If you do not have a private doctor, please ask for a resource list of physicians or clinics that may be able to assist you with follow up care. The Emergency Physician has interpreted your x-rays. The X-ray specialist will also review them. If there is a change in the findings you will be notified in 48 hours when at all possible. A lab test or lab culture may have been done, your results will be reviewed and you will be notified if you need a change in treatment. ADDITIONAL INSTRUCTIONS AND INFORMATION Your care today has been supervised by a physician who is specially trained in emergency care. Many problems require more than one evaluation for a complete diagnosis and treatment. We recommend that you schedule your follow up appointment as recommended to ensure complete treatment of your illness or injury. If you are unable to obtain follow up care and continue to have a problem, or if your condition worsens we recommend that you return to the ED. We are not able to safely determine your condition over the phone nor are we able to give sound medical advice over the phone. For these safety reasons, if you call for medical advice we will ask you to come to the ED for further evaluation If you have any questions regarding these discharge instructions please call the ED at . SAFETY INFORMATION In the interest of safety, wellness, and injury prevention; we encourage you to wear your seatbelt, if you smoke; quit smoking, and we encourage your family to use protective helmet for bicycling and other sporting events that present an increased risk for head injury. IF YOUR SYMPTOMS WORSEN OR NEW SYMPTOMS DEVELOP, OR YOU HAVE CONCERNS ABOUT YOUR CONDITION; OR IF YOUR CONDITION WORSENS WHILE YOU ARE WAITING FOR YOUR FOLLOW UP APPOINTMENT; EITHER CONTACT YOUR PRIMARY CARE DOCTOR, THE PHYSICIAN WHOSE NAME AND NUMBER YOU WERE GIVEN, OR RETURN TO THE ED IMMEDIATELY. KATRINA PACHECO MD Aug 10, 2020 13:26
[2020-08-10 13:55] LABS: BASO # 0.1 x10^3/uL (0.0-0.2); BASO % 1 % (0-3); EOS # 0.1 x10^3/uL (0.0-0.7); EOS % 1 % (0-3); HEMATOCRIT 27.6 % (39.0-53.0); HEMOGLOBIN 10.1 g/dL (13.0-17.5); LYMPH # 2.1 x10^3/uL (1.0-4.8); LYMPH % 22 % (24-48); MEAN CORPUSCULAR HEMOGLOBIN 30 pg (25-35); MEAN CORPUSCULAR HGB CONC 36 g/dL (31-37); MEAN CORPUSCULAR VOLUME 82 fL (79-100); MONO % 11 % (0-9); NEUT # 6.2 x10^3/uL (1.8-7.7); NEUT % 65 % (31-73); PLATELET COUNT 419 x10^3/uL (140-400); RED BLOOD COUNT 3.39 x10^6/uL (4.30-5.70); RED CELL DISTRIBUTION WIDTH 24.4 % (11.5-14.5); WHITE BLOOD COUNT 9.5 x10^3/uL (4.0-11.0)
[2020-08-10 14:07] LABS: CREATININE 0.5 mg/dL (0.7-1.3); GFR 249.3; POTASSIUM 4.2 mmol/L (3.5-5.1)
[2020-08-10 14:13] LABS: ALBUMIN 4.4 g/dL (3.4-5.0); ALBUMIN/GLOBULIN RATIO 1.2 (1.0-1.7); TOTAL BILIRUBIN 2.9 mg/dL (0.2-1.0)
[2020-08-10 14:28] LABS: ANISOCYTOSIS MOD; PLT ESTIMATE INCREASED (ADEQUATE); POIKILOCYTOSIS MARKED; SICKLE CELLS PRESENT
[2020-08-10 14:29] LABS: POLYCHROMASIA PRESENT; TARGET CELLS PRESENT
[2020-08-10] MEDS ORDERED: fentaNYL PF VIAL 100 MCG/2 ML VIAL IVP ONE (14:30)
[2020-08-10 15:10] VITALS: BP 110/74
== END 2020-08-10 15:15 | disposition home or self-care (01) ==
LOC: ER 12:45
DX: D57.00 Hb-SS disease with crisis, unspecified (principal); M54.89 Other dorsalgia
CPT/HCPCS: 36415; 80053; 85025; 85045; 96361; 96374; 96375; 99285; J2270; J2405; J3010; J7030

== ENCOUNTER 2020-09-01 07:04 | Emergency (ER) | payer BC, MEDICARE ==
[~2020-09-01] VITALS: Ht 175.3 cm; Wt 80.9 kg
[2020-09-01] MEDS ORDERED: IV NORMAL SALINE 1000ML BAG 1,000 ML IV ONE (07:15)
[2020-09-01] MEDS ORDERED: fentaNYL PF VIAL 100 MCG/2 ML VIAL IV ONE ×2 (07:15→10:45)
[2020-09-01 07:59] LABS: CALCIUM 8.6 mg/dL (8.5-10.1); CREATININE 0.7 mg/dL (0.7-1.3); GFR 169.1; POTASSIUM 3.6 mmol/L (3.5-5.1)
[2020-09-01 08:05] LABS: ALBUMIN 4.2 g/dL (3.4-5.0); ALBUMIN/GLOBULIN RATIO 1.4 (1.0-1.7); MAGNESIUM 2.2 mg/dL (1.8-2.4); TOTAL PROTEIN 7.2 g/dL (6.4-8.2)
[2020-09-01 08:53] VITALS: BP 114/57
[2020-09-01 10:06] LABS: BASO # 0.1 x10^3/uL (0.0-0.2); BASO % 1 % (0-3); EOS # 0.1 x10^3/uL (0.0-0.7); EOS % 1 % (0-3); HEMATOCRIT 23.7 % (39.0-53.0); HEMOGLOBIN 8.7 g/dL (13.0-17.5); LYMPH # 2.4 x10^3/uL (1.0-4.8); LYMPH % 29 % (24-48); MEAN CORPUSCULAR HEMOGLOBIN 30 pg (25-35); MEAN CORPUSCULAR HGB CONC 37 g/dL (31-37); MEAN CORPUSCULAR VOLUME 82 fL (79-100); MONO % 12 % (0-9); NEUT # 4.9 x10^3/uL (1.8-7.7); NEUT % 57 % (31-73); PLATELET COUNT 320 x10^3/uL (140-400); RED BLOOD COUNT 2.91 x10^6/uL (4.30-5.70); RED CELL DISTRIBUTION WIDTH 24.7 % (11.5-14.5); WHITE BLOOD COUNT 8.5 x10^3/uL (4.0-11.0)
--- NOTE | 2020-09-01 11:10 | PHYS DOC ---
Past Medical History Past Medical History: Other Additional Past Medical Histor: sickle cell Past Surgical History: No Surgical History Additional Past Surgical Histo: L HIP BONE GRAFT Smoking Status: Never Smoker Alcohol Use: Occasionally Drug Use: Marijuana General Adult EDM: Chief Complaint: PAIN CONTROL HPI: HPI: Patient is a 25 year old [f__sex] who presents with [] Review of Systems: Review of Systems: Constitutional: Denies fever or chills. [] Eyes: Denies change in visual acuity. [] HENT: Denies nasal congestion or sore throat. [] Respiratory: Denies cough or shortness of breath. [] Cardiovascular: Denies chest pain or edema. [] GI: Denies abdominal pain, nausea, vomiting, bloody stools or diarrhea. [] : Denies dysuria. [] Musculoskeletal: Denies back pain or joint pain. [] Integument: Denies rash. [] Neurologic: Denies headache, focal weakness or sensory changes. [] Endocrine: Denies polyuria or polydipsia. [] Lymphatic: Denies swollen glands. [] Psychiatric: Denies depression or anxiety. [] Heart Score: Risk Factors: Risk Factors: DM, Current or recent (<one month) smoker, HTN, HLP, family history of CAD, obesity. Risk Scores: Score 0 - 3: 2.5% MACE over next 6 weeks - Discharge Home Score 4 - 6: 20.3% MACE over next 6 weeks - Admit for Clinical Observation Score 7 - 10: 72.7% MACE over next 6 weeks - Early Invasive Strategies Current Medications: Current Medications Medications (Trade) Dose Ordered Sig/[facility] Start Time Stop Time Status Last Admin Dose Admin Fentanyl Citrate (Fentanyl 2ml Vial) 75 mcg 1X ONCE 09/01/20 10:45 09/01/20 10:46 DC 09/01/20 10:56 75 MCG Sodium Chloride 1,000 ml @ 1,000 mls/hr 1X ONCE 09/01/20 07:15 09/01/20 08:14 DC 09/01/20 09:02 1,000 MLS/HR Allergies: Allergies: Allergies Coded Allergies Type Severity Reaction Last Updated Verified No Known Drug Allergies 11/06/17 No Physical Exam: PE: Constitutional: Well developed, well nourished, no acute distress, non-toxic appearance. [] HENT: Normocephalic, atraumatic, bilateral external ears normal, oropharynx moist, no oral exudates, nose normal. [] Eyes: PERRLA, EOMI, conjunctiva normal, no discharge. [] Neck: Normal range of motion, no tenderness, supple, no stridor. [] Cardiovascular:Heart rate regular rhythm, no murmur [] Lungs & Thorax: Bilateral breath sounds clear to auscultation [] Abdomen: Bowel sounds normal, soft, no tenderness, no masses, no pulsatile masses. [] Skin: Warm, dry, no erythema, no rash. [] Back: No tenderness, no CVA tenderness. [] Extremities: No tenderness, no cyanosis, no clubbing, ROM intact, no edema. [] Neurologic: Alert and oriented X 3, normal motor function, normal sensory function, no focal deficits noted. [] Psychologic: Affect normal, judgement normal, mood normal. [] Current Patient Data: Labs: Laboratory Tests Test 09/01/20 07:36 09/01/20 09:57 Sodium Level 141 mmol/L (136-145) Potassium Level 3.6 mmol/L (3.5-5.1) Chloride Level 106 mmol/L (98-107) Carbon Dioxide Level 23 mmol/L (21-32) Anion Gap 12 (6-14) Blood Urea Nitrogen 9 mg/dL (8-26) Creatinine 0.7 mg/dL (0.7-1.3) Estimated GFR (Cockcroft-Gault) 169.1 BUN/Creatinine Ratio 13 (6-20) Glucose Level 122 mg/dL (70-99) H Calcium Level 8.6 mg/dL (8.5-10.1) Magnesium Level 2.2 mg/dL (1.8-2.4) Total Bilirubin 3.0 mg/dL (0.2-1.0) H Aspartate Amino Transferase (AST) 50 U/L (15-37) H Alanine Aminotransferase (ALT) 31 U/L (16-63) Alkaline Phosphatase 96 U/L (46-116) Total Protein 7.2 g/dL (6.4-8.2) Albumin 4.2 g/dL (3.4-5.0) Albumin/Globulin Ratio 1.4 (1.0-1.7) White Blood Count 8.5 x10^3/uL (4.0-11.0) Red Blood Count 2.95 x10^6/uL (4.30-5.70) L Hemoglobin 8.7 g/dL (13.0-17.5) L Hematocrit 23.7 % (39.0-53.0) L Mean Corpuscular Volume 82 fL (79-100) Mean Corpuscular Hemoglobin 30 pg (25-35) Mean Corpuscular Hemoglobin Concent 37 g/dL (31-37) Red Cell Distribution Width 24.7 % (11.5-14.5) H Platelet Count 320 x10^3/uL (140-400) Neutrophils (%) (Auto) 57 % (31-73) Lymphocytes (%) (Auto) 29 % (24-48) Monocytes (%) (Auto) 12 % (0-9) H Eosinophils (%) (Auto) 1 % (0-3) Basophils (%) (Auto) 1 % (0-3) Neutrophils # (Auto) 4.9 x10^3/uL (1.8-7.7) Lymphocytes # (Auto) 2.4 x10^3/uL (1.0-4.8) Monocytes # (Auto) 1.0 x10^3/uL (0.0-1.1) Eosinophils # (Auto) 0.1 x10^3/uL (0.0-0.7) Basophils # (Auto) 0.1 x10^3/uL (0.0-0.2) Absolute Reticulocyte Count 0.112 x10^6/uL (0.020-0.120) Percent Reticulocyte Count 3.8 % (0.5-2.3) H Immature Reticulocyte Fraction 0.66 (0.20-0.60) H Laboratory Tests 09/01/20 09:57 Laboratory Tests 09/01/20 07:36 Vital Signs: Vital Signs Date Time Temp Pulse Resp B/P (MAP) Pulse Ox O2 Delivery O2 Flow Rate FiO2 09/01/20 10:56 18 09/01/20 08:53 97.9 61 114/57 (76) 95 Room Air 97.9 EKG: EKG: [] Radiology/Procedures: Radiology/Procedures: [] Course & Med Decision Making: Course & Med Decision Making Pertinent Labs and Imaging studies reviewed. (See chart for details) [] Candelario Disclaimer: Candelario Disclaimer: This electronic medical record was generated, in whole or in part, using a voice recognition dictation system. Departure Departure Impression: Primary Impression: Sickle cell pain crisis Disposition: 01 DC HOME SELF CARE/HOMELESS Condition: STABLE Referrals: UNKNOWN PCP NAME (PCP) Patient Instructions: Sickle Cell Pain Crisis, [id number] RC CARABALLO DO Sep 01, 2020 11:10
[2020-09-01 11:57] LABS: ANISOCYTOSIS PRESENT; PLT ESTIMATE ADEQUATE (ADEQUATE); POLYCHROMASIA PRESENT; SICKLE CELLS PRESENT; TARGET CELLS PRESENT
== END 2020-09-01 11:35 | disposition home or self-care (01) ==
LOC: ER 07:04
DX: D57.00 Hb-SS disease with crisis, unspecified (principal); F12.90 Cannabis use, unspecified, uncomplicated; Z98.890 Other specified postprocedural states
CPT/HCPCS: 36415; 80053; 83735; 85025; 85045; 96361; 96374; 96376; 99284; J3010; J7030

== ENCOUNTER 2020-09-09 06:24 | Emergency (ER) | payer BC, MEDICARE ==
[~2020-09-09] VITALS: Ht 175.3 cm; Wt 80.9 kg
[2020-09-09 06:58] LABS: BASO # 0.1 x10^3/uL (0.0-0.2); BASO % 1 % (0-3); EOS # 0.2 x10^3/uL (0.0-0.7); EOS % 2 % (0-3); HEMOGLOBIN 9.7 g/dL (13.0-17.5); LYMPH # 3.4 x10^3/uL (1.0-4.8); LYMPH % 33 % (24-48); MEAN CORPUSCULAR HEMOGLOBIN 29 pg (25-35); MEAN CORPUSCULAR HGB CONC 36 g/dL (31-37); MEAN CORPUSCULAR VOLUME 82 fL (79-100); MONO # 1.1 x10^3/uL (0.0-1.1); MONO % 11 % (0-9); NEUT # 5.5 x10^3/uL (1.8-7.7); NEUT % 53 % (31-73); PLATELET COUNT 334 x10^3/uL (140-400); RED BLOOD COUNT 3.29 x10^6/uL (4.30-5.70); RED CELL DISTRIBUTION WIDTH 24.4 % (11.5-14.5); WHITE BLOOD COUNT 10.3 x10^3/uL (4.0-11.0)
[2020-09-09] MEDS ORDERED: IV NORMAL SALINE 1000ML BAG 1,000 ML IV ONE (07:00)
[2020-09-09] MEDS ORDERED: ONDANSETRON PF 4 MG/2 ML VIAL. IVP ONE (07:00)
[2020-09-09] MEDS ORDERED: fentaNYL PF VIAL 100 MCG/2 ML VIAL IVP ONE ×2 (07:00→09:15)
[2020-09-09 07:04] LABS: CALCIUM 8.8 mg/dL (8.5-10.1); CREATININE 0.5 mg/dL (0.7-1.3); GFR 249.3; POTASSIUM 4.7 mmol/L (3.5-5.1)
--- NOTE | 2020-09-09 07:04 | PHYS DOC ---
Past Medical History Past Medical History: Other Additional Past Medical Histor: sickle cell Past Surgical History: No Surgical History Additional Past Surgical Histo: L HIP BONE GRAFT Smoking Status: Never Smoker Alcohol Use: Occasionally Drug Use: Marijuana General Adult EDM: Chief Complaint: BACK PAIN - NO INJURY HPI: HPI: Patient is a 25 year old male who presented to the ER today for evaluation of generalized joints pain, lower back pain since yesterday. No injury. Patient has history of sickle cell disease, he felt like he has sickle cell pain crisis again. Patient took his oxycodone last night but not helping with the pain. Patient denied any fever, no cough, no shortness of air. Patient said he has been working so much lately. Review of Systems: Review of Systems: Constitutional: Denies fever or chills. [] Eyes: Denies change in visual acuity. [] HENT: Denies nasal congestion or sore throat. [] Respiratory: Denies cough or shortness of breath. [] Cardiovascular: Denies chest pain or edema. [] GI: Denies abdominal pain, nausea, vomiting, bloody stools or diarrhea. [] : Denies dysuria. [] Musculoskeletal: Positive for back pain or joint pain. [] Integument: Denies rash. [] Neurologic: Denies headache, focal weakness or sensory changes. [] Endocrine: Denies polyuria or polydipsia. [] Lymphatic: Denies swollen glands. [] Psychiatric: Denies depression or anxiety. [] Heart Score: Risk Factors: Risk Factors: DM, Current or recent (<one month) smoker, HTN, HLP, family history of CAD, obesity. Risk Scores: Score 0 - 3: 2.5% MACE over next 6 weeks - Discharge Home Score 4 - 6: 20.3% MACE over next 6 weeks - Admit for Clinical Observation Score 7 - 10: 72.7% MACE over next 6 weeks - Early Invasive Strategies Current Medications: Current Medications Medications (Trade) Dose Ordered Sig/Glenis Start Time Stop Time Status Last Admin Dose Admin Fentanyl Citrate (Fentanyl 2ml Vial) 75 mcg 1X ONCE 09/09/20 07:00 09/09/20 07:01 Ondansetron HCl (Zofran) 4 mg 1X ONCE 09/09/20 07:00 09/09/20 07:01 Sodium Chloride 1,000 ml @ 1,000 mls/hr 1X ONCE 09/09/20 07:00 09/09/20 07:59 09/09/20 06:52 1,000 MLS/HR Allergies: Allergies: Allergies Coded Allergies Type Severity Reaction Last Updated Verified No Known Drug Allergies 11/06/17 No Physical Exam: PE: Constitutional: Well developed, well nourished, no acute distress, non-toxic appearance. [] HENT: Normocephalic, atraumatic, bilateral external ears normal, oropharynx moist, no oral exudates, nose normal. [] Eyes: PERRLA, EOMI, conjunctiva normal, no discharge. [] Neck: Normal range of motion, no tenderness, supple, no stridor. [] Cardiovascular:Heart rate regular rhythm, no murmur [] Lungs & Thorax: Bilateral breath sounds clear to auscultation [] Abdomen: Bowel sounds normal, soft, no tenderness, no masses, no pulsatile masses. [] Skin: Warm, dry, no erythema, no rash. [] Back: No tenderness, no CVA tenderness. [] Extremities: No tenderness, no cyanosis, no clubbing, ROM intact, no edema. [] Neurologic: Alert and oriented X 3, normal motor function, normal sensory function, no focal deficits noted. [] Psychologic: Affect normal, judgement normal, mood normal. [] Current Patient Data: Labs: Laboratory Tests Test 09/09/20 06:40 White Blood Count 10.3 x10^3/uL Red Blood Count 3.27 x10^6/uL Hemoglobin 9.7 g/dL Hematocrit 27.0 % Mean Corpuscular Volume 82 fL Mean Corpuscular Hemoglobin 29 pg Mean Corpuscular Hemoglobin Concent 36 g/dL Red Cell Distribution Width 24.4 % Platelet Count 334 x10^3/uL Neutrophils (%) (Auto) 53 % Lymphocytes (%) (Auto) 33 % Monocytes (%) (Auto) 11 % Eosinophils (%) (Auto) 2 % Basophils (%) (Auto) 1 % Neutrophils # (Auto) 5.5 x10^3/uL Lymphocytes # (Auto) 3.4 x10^3/uL Monocytes # (Auto) 1.1 x10^3/uL Eosinophils # (Auto) 0.2 x10^3/uL Basophils # (Auto) 0.1 x10^3/uL Platelet Estimate Adequate Poikilocytosis Present Anisocytosis Present Microcytosis Present Macrocytosis Present Sickle Cells Present Target Cells Present Absolute Reticulocyte Count 0.166 x10^6/uL Percent Reticulocyte Count 5.0 % Immature Reticulocyte Fraction 0.67 Sodium Level 139 mmol/L Potassium Level 4.7 mmol/L Chloride Level 106 mmol/L Carbon Dioxide Level 26 mmol/L Anion Gap 7 Blood Urea Nitrogen 5 mg/dL Creatinine 0.5 mg/dL Estimated GFR (Cockcroft-Gault) 249.3 BUN/Creatinine Ratio 10 Glucose Level 95 mg/dL Calcium Level 8.8 mg/dL Magnesium Level 2.0 mg/dL Total Bilirubin 2.3 mg/dL Aspartate Amino Transf (AST/SGOT) 67 U/L Alanine Aminotransferase (ALT/SGPT) 28 U/L Alkaline Phosphatase 86 U/L Total Protein 7.2 g/dL Albumin 4.2 g/dL Albumin/Globulin Ratio 1.4 Current Medications Medications (Trade) Dose Ordered Sig/Glenis Route PRN Reason Start Time Stop Time Status Last Admin Dose Admin Fentanyl Citrate (Fentanyl 2ml Vial) 75 mcg 1X ONCE IVP 09/09/20 07:00 09/09/20 07:01 DC 09/09/20 07:06 Ondansetron HCl (Zofran) 4 mg 1X ONCE IVP 09/09/20 07:00 09/09/20 07:01 DC 09/09/20 07:05 Sodium Chloride 1,000 ml @ 1,000 mls/hr 1X ONCE IV 09/09/20 07:00 09/09/20 07:59 DC 09/09/20 06:52 Ketorolac Tromethamine (Toradol 30mg Vial) 30 mg 1X ONCE IVP 09/09/20 08:00 09/09/20 08:01 DC 09/09/20 08:01 Fentanyl Citrate (Fentanyl 2ml Vial) 100 mcg 1X ONCE IVP 09/09/20 09:15 09/09/20 09:18 DC 09/09/20 09:20 Hydromorphone HCl (Dilaudid) 1 mg 1X ONCE IVP 09/09/20 10:45 09/09/20 10:46 DC 09/09/20 10:52 Vital Signs: Vital Signs Date Time Temp Pulse Resp B/P (MAP) Pulse Ox O2 Delivery O2 Flow Rate FiO2 09/09/20 06:25 98.6 68 20 146/88 (107) 96 Room Air 98.6 EKG: EKG: [] Radiology/Procedures: Radiology/Procedures: [][facility] [address] [place] [address] IMAGING REPORT Signed PATIENT: RASHAUN CHURCH EACCOUNT: [id number] : 1995 LOCATION: ER AGE: 25 SEX: M EXAM STATUS: REG ER ORD. PHYSICIAN: BRYAN HOFFMAN DO REASON: 24 - CHEST PAIN PROCEDURE: CHEST AP ONLY EXAM: Chest, single view. HISTORY: Chest pain. COMPARISON: 08/04/2020 FINDINGS: A frontal view of the chest is obtained. There is no infiltrate, pleural effusion or pneumothorax. There is suspected right basilar atelectasis or scarring. The heart is normal in size. IMPRESSION: No acute pulmonary finding. Electronically signed by: Chelsi Kohler MD (09/09/2020 10:50 AM) [id number] DICTATED and SIGNED BY: CHELSI KOHLER MD DATE: 09/09/20 [id number] 0 Course & Med Decision Making: Course & Med Decision Making Pertinent Labs and Imaging studies reviewed. (See chart for details) Patient is a 25-year-old male with sickle cell pain crisis, patient was given pain medication in the ER, he feel much better. Patient will be discharged home. Candelario Disclaimer: Candelario Disclaimer: This electronic medical record was generated, in whole or in part, using a voice recognition dictation system. Departure Departure Impression: Primary Impression: Sickle cell pain crisis Disposition: 01 DC HOME SELF CARE/HOMELESS Condition: IMPROVED Referrals: UNKNOWN PCP NAME (PCP) follow up with your doctor as scheduled tomorrow. Patient Instructions: Sickle Cell Pain Crisis Additional Instructions: Thank you for visiting our Emergency Department. We appreciate you trusting us with your care. If any additional problems come up don't hesitate to return to visit us. Please follow up with your primary care provider so they can plan additional care if needed and know about the problem that you had. If symptoms worsen come back to the Emergency Department. Any concerning symptoms that start such as chest pain, shortness of air, weakness or numbness on one side of the body, running high fevers or any other concerning symptoms return to the ER. Scripts Oxycodone HCl/Acetaminophen (Percocet 5-325 mg Tablet) 1 Each Tablet 1 TAB PO PRN QID PRN for PAIN for 2 Days, #10 TAB 0 Refills Prov: BRYAN HOFFMAN DO 09/09/20 BRYAN HOFFMAN DO Sep 09, 2020 07:04
[2020-09-09 07:09] LABS: ALBUMIN 4.2 g/dL (3.4-5.0); ALBUMIN/GLOBULIN RATIO 1.4 (1.0-1.7); TOTAL BILIRUBIN 2.3 mg/dL (0.2-1.0); TOTAL PROTEIN 7.2 g/dL (6.4-8.2)
[2020-09-09] MEDS ORDERED: KETOROLAC 30 MG/ML VIAL. IVP ONE (08:00)
[2020-09-09] MEDS ORDERED: HYDROmorphone 2 MG/ML VIAL IVP ONE (10:45)
--- NOTE | 2020-09-09 10:53 | RAD ---
EXAM: Chest, single view. HISTORY: Chest pain. COMPARISON: 08/04/2020 FINDINGS: A frontal view of the chest is obtained. There is no infiltrate, pleural effusion or pneumo thorax. There is suspected right basilar atelectasis or scarring. The heart is normal in size. IMPRESSION: No acute pulmonary finding. Electronically signed by: Chelsi Kohler MD (09/09/2020 10:50 AM) [id number]
[2020-09-09 11:04] LABS: ANISOCYTOSIS PRESENT; MICROCYTOSIS PRESENT; POIKILOCYTOSIS PRESENT; SICKLE CELLS PRESENT; TARGET CELLS PRESENT
[2020-09-09 11:06] LABS: PLT ESTIMATE ADEQUATE (ADEQUATE)
[2020-09-09] MEDS ORDERED: OXYC-325 PO (11:24)
[2020-09-09 11:33] VITALS: BP 109/55
== END 2020-09-09 12:12 | disposition home or self-care (01) ==
LOC: ER 06:24
DX: D57.00 Hb-SS disease with crisis, unspecified (principal); Z20.828 Contact with and (suspected) exposure to other viral communicable diseases; M79.10 Myalgia, unspecified site; M54.5 Low back pain
CPT/HCPCS: 36415; 71045; 80053; 83735; 85025; 85045; 96361; 96374; 96375; 96376; 99285; C9803; J1170; J1885; J2405; J3010; J7030; U0003

== ENCOUNTER 2020-09-11 06:39 | Emergency (ER) | payer BC ==
[~2020-09-11] VITALS: Ht 175.3 cm; Wt 80.9 kg
[~2020-09-11 06:39] MED LIST changes: +OXYC-325 PO
--- NOTE | 2020-09-11 09:26 | NUR ---
IP: Informed pt of negative COVID test. pt verbalized understanding.
[2020-09-11] MEDS ORDERED: MORPHINE SULFATE 10 MG/ML VIAL. IV ONE ×3 (09:30→12:30)
[2020-09-11] MEDS ORDERED: IV NORMAL SALINE 1000ML BAG 1,000 ML IV ONE (09:30)
[2020-09-11 09:40] LABS: BASO # 0.1 x10^3/uL (0.0-0.2); BASO % 1 % (0-3); EOS # 0.1 x10^3/uL (0.0-0.7); EOS % 1 % (0-3); HEMATOCRIT 25.8 % (39.0-53.0); HEMOGLOBIN 9.3 g/dL (13.0-17.5); LYMPH # 1.5 x10^3/uL (1.0-4.8); LYMPH % 17 % (24-48); MEAN CORPUSCULAR HEMOGLOBIN 29 pg (25-35); MEAN CORPUSCULAR HGB CONC 36 g/dL (31-37); MEAN CORPUSCULAR VOLUME 81 fL (79-100); MONO # 1.6 x10^3/uL (0.0-1.1); MONO % 18 % (0-9); NEUT # 5.5 x10^3/uL (1.8-7.7); NEUT % 63 % (31-73); PLATELET COUNT 266 x10^3/uL (140-400); RED BLOOD COUNT 3.19 x10^6/uL (4.30-5.70); RED CELL DISTRIBUTION WIDTH 24.8 % (11.5-14.5); WHITE BLOOD COUNT 8.8 x10^3/uL (4.0-11.0)
[2020-09-11 09:50] LABS: CALCIUM 9.3 mg/dL (8.5-10.1); CREATININE 0.5 mg/dL (0.7-1.3); GFR 249.3
[2020-09-11 09:56] LABS: ALBUMIN 4.1 g/dL (3.4-5.0); ALBUMIN/GLOBULIN RATIO 1.1 (1.0-1.7); TOTAL BILIRUBIN 2.8 mg/dL (0.2-1.0); TOTAL PROTEIN 7.9 g/dL (6.4-8.2)
[2020-09-11 10:42] LABS: ANISOCYTOSIS PRESENT; HYPOCHROMIA PRESENT; PLT ESTIMATE ADEQUATE (ADEQUATE); POIKILOCYTOSIS PRESENT; POLYCHROMASIA PRESENT
[2020-09-11 10:43] LABS: SICKLE CELLS PRESENT; TARGET CELLS PRESENT
--- NOTE | 2020-09-11 13:11 | ED.ADGEN ---
Past Medical History Past Medical History: Other Additional Past Medical Histor: sickle cell Past Surgical History: Other Additional Past Surgical Histo: L HIP BONE GRAFT Smoking Status: Never Smoker Alcohol Use: None Drug Use: Marijuana General Adult EDM: Chief Complaint: OTHER COMPLAINTS HPI: HPI: Patient is 25-year-old male with past medical history of sickle cell disease who presents to the emergency room complaining of lower back pain that has been ongoing for the last several days. He has been having increasing crisis since the weather has been cold. He has been taking his home medications without any relief. He states that he has not missed any doses of his medications. He has a follow-up appointment with his sickle cell clinic next week. He denies any current fever, cough, shortness of breath, chest pain, abdominal pain, rash, ski n color change. He denies any strokelike symptoms. Review of Systems: Review of Systems: Complete ROS is negative unless otherwise documented in HPI Current Medications: Current Medications Medications (Trade) Dose Ordered Sig/Glenis Start Time Stop Time Status Last Admin Dose Admin Morphine Sulfate (Morphine Sulfate) 8 mg 1X ONCE 09/11/20 12:30 09/11/20 12:31 DC 09/11/20 12:31 8 MG Sodium Chloride 1,000 ml @ 1,000 mls/hr 1X ONCE 09/11/20 09:30 09/11/20 10:29 DC 09/11/20 09:58 1,000 MLS/HR Allergies: Allergies: Allergies Coded Allergies Type Severity Reaction Last Updated Verified No Known Drug Allergies 09/11/20 No Physical Exam: PE: General: Awake, alert, NAD. Well Nourished, well hydrated. Cooperative HEENT: Atraumatic, EOMI, PERRL, airway patent, moist oral mucosa Neck: Supple, trachea midline Respiratory: CTA bilaterally, normal effort, no wheezing/crackles CV: RRR, no murmur, cap refill <2 GI: Soft, nondistended, nontender, no masses MSK: No obvious deformities Skin: Warm, dry, intact Neuro: A&O x3, speech NL, sensory and motor grossly intact, no focal deficits Psych: Normal affect, normal mood, not suicidal or homicidal Current Patient Data: Labs: Laboratory Tests Test 09/11/20 09:28 White Blood Count 8.8 x10^3/uL (4.0-11.0) Red Blood Count 3.17 x10^6/uL (4.30-5.70) L Hemoglobin 9.3 g/dL (13.0-17.5) L Hematocrit 25.8 % (39.0-53.0) L Mean Corpuscular Volume 81 fL (79-100) Mean Corpuscular Hemoglobin 29 pg (25-35) Mean Corpuscular Hemoglobin Concent 36 g/dL (31-37) Red Cell Distribution Width 24.8 % (11.5-14.5) H Platelet Count 266 x10^3/uL (140-400) Neutrophils (%) (Auto) 63 % (31-73) Lymphocytes (%) (Auto) 17 % (24-48) L Monocytes (%) (Auto) 18 % (0-9) H Eosinophils (%) (Auto) 1 % (0-3) Basophils (%) (Auto) 1 % (0-3) Neutrophils # (Auto) 5.5 x10^3/uL (1.8-7.7) Lymphocytes # (Auto) 1.5 x10^3/uL (1.0-4.8) Monocytes # (Auto) 1.6 x10^3/uL (0.0-1.1) H Eosinophils # (Auto) 0.1 x10^3/uL (0.0-0.7) Basophils # (Auto) 0.1 x10^3/uL (0.0-0.2) Platelet Estimate Adequate (ADEQUATE) Polychromasia Present Hypochromasia Present Poikilocytosis Present Anisocytosis Present Macrocytosis Present Sickle Cells Present Target Cells Present Absolute Reticulocyte Count 0.128 x10^6/uL (0.020-0.120) Percent Reticulocyte Count 4.0 % (0.5-2.3) H Immature Reticulocyte Fraction 0.60 (0.20-0.60) Sodium Level 137 mmol/L (136-145) Potassium Level 4.0 mmol/L (3.5-5.1) Chloride Level 101 mmol/L (98-107) Carbon Dioxide Level 26 mmol/L (21-32) Anion Gap 10 (6-14) Blood Urea Nitrogen 5 mg/dL (8-26) L Creatinine 0.5 mg/dL (0.7-1.3) L Estimated GFR (Cockcroft-Gault) 249.3 BUN/Creatinine Ratio 10 (6-20) Glucose Level 98 mg/dL (70-99) Calcium Level 9.3 mg/dL (8.5-10.1) Total Bilirubin 2.8 mg/dL (0.2-1.0) H Aspartate Amino Transferase (AST) 41 U/L (15-37) H Alanine Aminotransferase (ALT) 22 U/L (16-63) Alkaline Phosphatase 81 U/L (46-116) Troponin I Quantitative < 0.017 ng/mL (0.000-0.055) Total Protein 7.9 g/dL (6.4-8.2) Albumin 4.1 g/dL (3.4-5.0) Albumin/Globulin Ratio 1.1 (1.0-1.7) Laboratory Tests 09/11/20 09:28 Laboratory Tests 09/11/20 09:28 Vital Signs: Vital Signs Date Time Temp Pulse Resp B/P (MAP) Pulse Ox O2 Delivery O2 Flow Rate FiO2 09/11/20 13:19 74 15 101/56 (71) 96 Room Air 09/11/20 07:05 100.9 100.9 EKG: EKG: [] Heart Score: Risk Factors: Risk Factors: DM, Current or recent (<one month) smoker, HTN, HLP, family history of CAD, obesity. Risk Scores: Score 0 - 3: 2.5% MACE over next 6 weeks - Discharge Home Score 4 - 6: 20.3% MACE over next 6 weeks - Admit for Clinical Observation Score 7 - 10: 72.7% MACE over next 6 weeks - Early Invasive Strategies Radiology/Procedures: Radiology/Procedures: [] Course & Med Decision Making: Course & Med Decision Making Pertinent Labs and Imaging studies reviewed. (See chart for details) Patient is a 25-year-old male with a past medical history of sickle cell who presents to the Emergency Room complaining of sickle cell pain consistent with a sickle cell crisis. On exam, patient is overall well-appearing with normal vitals. Patient is lower back pain. Patient does not have chest pain and will not need a chest x-ray and EKG. Patient does not have priapism, focal neurologic deficits, fever, hypoxia, hypotension. CBC, retic count, CMP, UA were ordered to evaluate for aplastic crisis and precipitating factors of a crisis including infection, acidosis, dehydration. Patient was given morphine for symptoms upon arrival. Work up was reviewed and reveals increased retake count with hemoglobin at baseline. On reevaluation, patient has some relief. He was offered admission but would like to go home as he needs to go to work. Patient's test results and vitals while in the ED were fully reviewed and discussed with the patient. Patient is stable and at this time does not need admission to the hospital. We have discussed strict return precautions and the importance of following up with their Primary Care Physician. Patient stated understanding and was given an opportunity to ask any questions. Patient is in agreement with plan.. Candelario Disclaimer: Dragcaro Disclaimer: This electronic medical record was generated, in whole or in part, using a voice recognition dictation system. Departure Departure Impression: Primary Impression: Sickle cell pain crisis Disposition: 01 DC HOME SELF CARE/HOMELESS Condition: IMPROVED Referrals: UNKNOWN PCP NAME (PCP) Patient Instructions: Sickle Cell Pain Crisis VICKY HURTADO MD Sep 11, 2020 13:11
[2020-09-11 13:19] VITALS: BP 101/56
== END 2020-09-11 13:56 | disposition home or self-care (01) ==
LOC: ER 06:39
DX: D57.00 Hb-SS disease with crisis, unspecified (principal)
CPT/HCPCS: 36415; 80053; 84484; 85025; 85045; 96361; 96374; 96376; 99285; J2270; J7030

== ENCOUNTER 2020-09-13 05:24 | Emergency (ER) | payer BC ==
[~2020-09-13] VITALS: Ht 175.3 cm; Wt 80.9 kg
[2020-09-13] MEDS ORDERED: KETOROLAC 30 MG/ML VIAL. IVP ONE (07:30)
[2020-09-13] MEDS ORDERED: IV NORMAL SALINE 1000ML BAG 1,000 ML IV ONE (07:30)
[2020-09-13] MEDS ORDERED: ONDANSETRON PF 4 MG/2 ML VIAL. IVP ONE (07:30)
[2020-09-13 07:50] LABS: CREATININE 0.6 mg/dL (0.7-1.3); POTASSIUM 3.9 mmol/L (3.5-5.1)
[2020-09-13 07:55] LABS: ALBUMIN 4.1 g/dL (3.4-5.0); ALBUMIN/GLOBULIN RATIO 1.1 (1.0-1.7); TOTAL BILIRUBIN 2.2 mg/dL (0.2-1.0); TOTAL PROTEIN 7.8 g/dL (6.4-8.2)
[2020-09-13 07:58] LABS: BASO # 0.1 x10^3/uL (0.0-0.2); BASO % 1 % (0-3); EOS # 0.2 x10^3/uL (0.0-0.7); EOS % 2 % (0-3); HEMATOCRIT 24.3 % (39.0-53.0); HEMOGLOBIN 8.7 g/dL (13.0-17.5); LYMPH # 2.4 x10^3/uL (1.0-4.8); LYMPH % 32 % (24-48); MEAN CORPUSCULAR HEMOGLOBIN 29 pg (25-35); MEAN CORPUSCULAR HGB CONC 36 g/dL (31-37); MEAN CORPUSCULAR VOLUME 81 fL (79-100); MONO # 0.9 x10^3/uL (0.0-1.1); MONO % 12 % (0-9); NEUT # 3.9 x10^3/uL (1.8-7.7); NEUT % 52 % (31-73); PLATELET COUNT 293 x10^3/uL (140-400); RED CELL DISTRIBUTION WIDTH 24.2 % (11.5-14.5); WHITE BLOOD COUNT 7.4 x10^3/uL (4.0-11.0)
[2020-09-13] MEDS ORDERED: MORPHINE SULFATE 4 MG/ML VIAL. IV ONE ×2 (08:15→09:45)
--- NOTE | 2020-09-13 08:32 | PHYS DOC ---
Past Medical History Past Medical History: Other Additional Past Medical Histor: sickle cell Past Surgical History: Other Additional Past Surgical Histo: L HIP BONE GRAFT Smoking Status: Never Smoker Alcohol Use: None Drug Use: Marijuana General Adult EDM: Chief Complaint: MULTIPLE COMPLAINTS HPI: HPI: Patient is a 25 year old male with history of sickle cell disease presenting to ER due to sickle cell pain crisis. Patient is complaining of pain in his lower extremity and back area. Patient denies any injury. Patient worked overnight last night, after getting off work this morning around 5:00 he came here because he in pain. Patient was seen here on September 01, again September 09, again September 11 the same problem. Patient was scheduled to see his doctor at the sickle cell clinic on September 10 but he canceled the appointment because he was worried that he has Covid. Patient was tested for Covid on the of this month, came back negative. Patient denies any cough or fever Review of Systems: Review of Systems: Constitutional: Denies fever or chills. [] Eyes: Denies change in visual acuity. [] HENT: Denies nasal congestion or sore throat. [] Respiratory: Denies cough or shortness of breath. [] Cardiovascular: Denies chest pain or edema. [] GI: Denies abdominal pain, nausea, vomiting, bloody stools or diarrhea. [] : Denies dysuria. [] Musculoskeletal: Positive for low back pain joint pain Integument: Denies rash. [] Neurologic: Denies headache, focal weakness or sensory changes. [] Endocrine: Denies polyuria or polydipsia. [] Lymphatic: Denies swollen glands. [] Psychiatric: Denies depression or anxiety. [] Heart Score: Risk Factors: Risk Factors: DM, Current or recent (<one month) smoker, HTN, HLP, family history of CAD, obesity. Risk Scores: Score 0 - 3: 2.5% MACE over next 6 weeks - Discharge Home Score 4 - 6: 20.3% MACE over next 6 weeks - Admit for Clinical Observation Score 7 - 10: 72.7% MACE over next 6 weeks - Early Invasive Strategies Current Medications: Current Medications Medications (Trade) Dose Ordered Sig/Glenis Start Time Stop Time Status Last Admin Dose Admin Ketorolac Tromethamine (Toradol 30mg Vial) 30 mg 1X ONCE 09/13/20 07:30 09/13/20 07:31 DC 09/13/20 07:29 30 MG Morphine Sulfate (Morphine Sulfate) 4 mg 1X ONCE 09/13/20 08:15 09/13/20 08:16 DC Ondansetron HCl (Zofran) 4 mg 1X ONCE 09/13/20 07:30 09/13/20 07:31 DC 09/13/20 07:29 4 MG Sodium Chloride 1,000 ml @ 1,000 mls/hr 1X ONCE 09/13/20 07:30 09/13/20 08:29 DC 09/13/20 07:30 1,000 MLS/HR Allergies: Allergies: Allergies Coded Allergies Type Severity Reaction Last Updated Verified No Known Drug Allergies 09/11/20 No Physical Exam: PE: Constitutional: Well developed, well nourished, no acute distress, non-toxic appearance. [] HENT: Normocephalic, atraumatic, bilateral external ears normal, oropharynx mois t, no oral exudates, nose normal. [] Eyes: PERRLA, EOMI, conjunctiva normal, no discharge. [] Neck: Normal range of motion, no tenderness, supple, no stridor. [] Cardiovascular:Heart rate regular rhythm, no murmur [] Lungs & Thorax: Bilateral breath sounds clear to auscultation [] Abdomen: Bowel sounds normal, soft, no tenderness, no masses, no pulsatile masses. [] Skin: Warm, dry, no erythema, no rash. [] Back: No tenderness, no CVA tenderness. [] Extremities: No tenderness, no cyanosis, no clubbing, ROM intact, no edema. [] Neurologic: Alert and oriented X 3, normal motor function, normal sensory function, no focal deficits noted. [] Psychologic: Affect normal, judgement normal, mood normal. [] Current Patient Data: Labs: Laboratory Tests Test 09/13/20 07:07 White Blood Count 7.4 x10^3/uL (4.0-11.0) Red Blood Count 2.99 x10^6/uL (4.30-5.70) L Hemoglobin 8.7 g/dL (13.0-17.5) L Hematocrit 24.3 % (39.0-53.0) L Mean Corpuscular Volume 81 fL (79-100) Mean Corpuscular Hemoglobin 29 pg (25-35) Mean Corpuscular Hemoglobin Concent 36 g/dL (31-37) Red Cell Distribution Width 24.2 % (11.5-14.5) H Platelet Count 293 x10^3/uL (140-400) Neutrophils (%) (Auto) 52 % (31-73) Lymphocytes (%) (Auto) 32 % (24-48) Monocytes (%) (Auto) 12 % (0-9) H Eosinophils (%) (Auto) 2 % (0-3) Basophils (%) (Auto) 1 % (0-3) Neutrophils # (Auto) 3.9 x10^3/uL (1.8-7.7) Lymphocytes # (Auto) 2.4 x10^3/uL (1.0-4.8) Monocytes # (Auto) 0.9 x10^3/uL (0.0-1.1) Eosinophils # (Auto) 0.2 x10^3/uL (0.0-0.7) Basophils # (Auto) 0.1 x10^3/uL (0.0-0.2) Platelet Estimate Pending Absolute Reticulocyte Count 0.125 x10^6/uL (0.020-0.120) Percent Reticulocyte Count 4.2 % (0.5-2.3) H Immature Reticulocyte Fraction 0.65 (0.20-0.60) H Sodium Level 141 mmol/L (136-145) Potassium Level 3.9 mmol/L (3.5-5.1) Chloride Level 104 mmol/L (98-107) Carbon Dioxide Level 26 mmol/L (21-32) Anion Gap 11 (6-14) Blood Urea Nitrogen 7 mg/dL (8-26) L Creatinine 0.6 mg/dL (0.7-1.3) L Estimated GFR (Cockcroft-Gault) 202.0 BUN/Creatinine Ratio 12 (6-20) Glucose Level 96 mg/dL (70-99) Calcium Level 9.0 mg/dL (8.5-10.1) Total Bilirubin 2.2 mg/dL (0.2-1.0) H Aspartate Amino Transferase (AST) 37 U/L (15-37) Alanine Aminotransferase (ALT) 35 U/L (16-63) Alkaline Phosphatase 84 U/L (46-116) Total Protein 7.8 g/dL (6.4-8.2) Albumin 4.1 g/dL (3.4-5.0) Albumin/Globulin Ratio 1.1 (1.0-1.7) Laboratory Tests 09/13/20 07:07 Laboratory Tests 09/13/20 07:07 Vital Signs: Vital Signs Date Time Temp Pulse Resp B/P (MAP) Pulse Ox O2 Delivery O2 Flow Rate FiO2 09/13/20 05:38 98.5 83 20 121/54 (76) 93 Room Air 98.5 EKG: EKG: [] Radiology/Procedures: Radiology/Procedures: [] Course & Med Decision Making: Course & Med Decision Making Pertinent Labs and Imaging studies reviewed. (See chart for details) Patient is not in aplastic crisis. His pain is under control, he will need to go see the doctor at the sickle cell clinic for treatment. Dragon Disclaimer: Dragon Disclaimer: This electronic medical record was generated, in whole or in part, using a voice recognition dictation system. Departure Departure Impression: Primary Impression: Sickle cell pain crisis Disposition: 01 DC HOME SELF CARE/HOMELESS Condition: IMPROVED Referrals: UNKNOWN PCP NAME (PCP) FOLLOW UP WITH YOUR DOCTOR NEXT WEEK. Patient Instructions: Sickle Cell Pain Crisis Additional Instructions: Thank you for visiting our Emergency Department. We appreciate you trusting us with your care. If any additional problems come up don't hesitate to return to visit us. Please follow up with your primary care provider so they can plan additional care if needed and know about the problem that you had. If symptoms worsen come back to the Emergency Department. Any concerning symptoms that start such as chest pain, shortness of air, weakness or numbness on one side of the body, running high fevers or any other concerning symptoms return to the ER. Scripts Naproxen Sodium (ANAPROX DS) 550 Mg Tablet 1 TAB PO BID PRN for PAIN for 10 Days, #20 TAB 0 Refills Prov: BRYAN HOFFMAN DO 09/13/20 Oxycodone HCl/Acetaminophen (Percocet 5-325 mg Tablet) 1 Each Tablet 1 TAB PO QIDPRN PRN for PAIN MDD 4 Tablet(s) for 3 Days, #12 TAB 0 Refills Prov: BRYAN HOFFMAN DO 09/13/20 Metoclopramide Hcl (REGLAN) 10 Mg Tablet 1 TAB PO QID PRN for NAUSEA for 10 Days, #40 TAB 0 Refills before food and bedtime Prov: BRYAN HOFFMAN DO 09/13/20 BRYAN HOFFMAN DO Sep 13, 2020 08:32
[2020-09-13 09:59] VITALS: BP 113/71
[2020-09-13 09:59] LABS: ANISOCYTOSIS MOD; PLT ESTIMATE ADEQUATE (ADEQUATE); SCHISTOCYTES OCC; SICKLE CELLS PRESENT; TARGET CELLS PRESENT
[2020-09-13 10:00] LABS: POIKILOCYTOSIS PRESENT
[2020-09-13] MEDS ORDERED: NAPR-682 PO (10:20)
[2020-09-13] MEDS ORDERED: METO10TA81 PO (10:20)
[2020-09-13] MEDS ORDERED: OXYC-325 PO (10:20)
== END 2020-09-13 10:28 | disposition home or self-care (01) ==
LOC: ER 05:24
DX: D57.00 Hb-SS disease with crisis, unspecified (principal); M54.5 Low back pain; F12.90 Cannabis use, unspecified, uncomplicated; Z98.890 Other specified postprocedural states
CPT/HCPCS: 36415; 80053; 85025; 85045; 96361; 96374; 96375; 96376; 99285; J1885; J2270; J2405; J7030

== ENCOUNTER 2020-09-23 06:26 | Inpatient (IN) | payer BC ==
[~2020-09-23] VITALS: Ht 175.3 cm; Wt 83.3 kg
[~2020-09-23 06:26] MED LIST changes: +METO10TA81 PO; +NAPR-682 PO
--- NOTE | 2020-09-23 06:50 | PHYS DOC ---
Past Medical History Past Medical History: Other Additional Past Medical Histor: sickle cell Past Surgical History: Other Additional Past Surgical Histo: L HIP BONE GRAFT Smoking Status: Never Smoker Alcohol Use: None Drug Use: Marijuana General Adult EDM: Chief Complaint: BACK PAIN - NO INJURY HPI: HPI: 25 yo M PMH sickle cell disease, well known to this ed (here on 09/01, 09/09, 09/11 and 09/13-back and leg pain) presents to the ed with c/o low back pain and leg pain, described as is typical sickle cell pain. Reports he cannot see his primary care physician until (in 3 more days) and has no relief with Naprosyn he took at 9 PM last night. Was prescribed 12 tablets of Percocet on the . Review of Systems: Review of Systems: Constitutional: Denies fever or chills. [] Eyes: Denies change in visual acuity. [] HENT: Denies nasal congestion or sore throat. [] Respiratory: Denies cough or shortness of breath. [] Cardiovascular: Denies chest pain or edema. [] GI: Denies abdominal pain, nausea, vomiting, bloody stools or diarrhea. [] : Denies dysuria. [] Musculoskeletal: Denies flank pain or joint pain. [] Integument: Denies rash. [] Neurologic: Denies headache, neck stiffness, focal weakness or sensory changes. [] Endocrine: Denies polyuria or polydipsia. [] Lymphatic: Denies swollen glands. [] Psychiatric: Denies depression or anxiety. [] Heart Score: Risk Factors: Risk Factors: DM, Current or recent (<one month) smoker, HTN, HLP, family history of CAD, obesity. Risk Scores: Score 0 - 3: 2.5% MACE over next 6 weeks - Discharge Home Score 4 - 6: 20.3% MACE over next 6 weeks - Admit for Clinical Observation Score 7 - 10: 72.7% MACE over next 6 weeks - Early Invasive Strategies Current Medications: Current Medications Medications (Trade) Dose Ordered Sig/Glenis Start Time Stop Time Status Last Admin Dose Admin Fentanyl Citrate (Fentanyl 2ml Vial) 75 mcg 1X ONCE 09/23/20 07:00 09/23/20 07:01 UNV Sodium Chloride 1,000 ml @ 1,000 mls/hr 1X ONCE 09/23/20 07:00 09/23/20 07:59 UNV Allergies: Allergies: Allergies Coded Allergies Type Severity Reaction Last Updated Verified No Known Drug Allergies 09/11/20 No Physical Exam: PE: Constitutional: in no distress on initial presentation, later crying and in pain, HENT: Normocephalic, atraumatic, Eyes: EOMI, conjunctiva normal, no discharge. Neck: Normal range of motion, supple, Cardiovascular: S1/2 present, regular rhythm Lungs & Thorax: Speaking in full sentences, bilateral equal chest rise, no tachypnea or increased work of breathing Abdomen: soft, no tenderness, Skin: Warm, dry, no erythema, no rash. [] Back: No tenderness, no CVA tenderness. [] Extremities: No tenderness, no cyanosis, no edema Neurologic: Alert and oriented X 3, normal motor function, normal sensory functi on, no focal deficits noted. [] Psychologic: Affect normal, judgement normal, mood normal. [] EKG: EKG: [] Radiology/Procedures: Radiology/Procedures: IMAGING REPORT Signed PATIENT: RASHAUN CHURCH EACCOUNT: [id number] : 1995 LOCATION: ER AGE: 25 SEX: M EXAM STATUS: REG ER ORD. PHYSICIAN: ERNIE PERDOMO DO REASON: back pain, sickle cell crisis PROCEDURE: CHEST AP ONLY AP chest. HISTORY: Back pain, sickle cell crisis AP view was taken of the chest. There is mild scarring at the right costophrenic angle unchanged on the recent study. Heart is upper normal in size. There is no pleural effusion. There are no acute infiltrates. IMPRESSION: 1. Linear scarring right lung base. 2. No acute infiltrates. Electronically signed by: Jadon Low MD (09/23/2020 7:56 AM) [id number] DICTATED and SIGNED BY: JADON LOW MD DATE: 09/23/20 [id number] 0 Course & Med Decision Making: Course & Med Decision Making Pertinent Labs and Imaging studies reviewed. (See chart for details) Concern for sickle cell pain crisis, labs with no leukocytosis or electrolyte ab normality. Has stable normocytic anemia. No infiltrate on chest x-ray. Urinalysis ordered but patient has not provided a urine sample. Will admit for pain control and further medical management, consider hematology consultation. Patient stable at time of admission and agrees with this plan. I have spoken with the patient and/or caregivers. I have explained the patient's condition, diagnosis and treatment plan based on the information available to me at this time. I have answered the patient's and/or caregivers questions and answered any concerns. The patient and/or caregivers have as good an understanding of the patient's diagnosis, condition and treatment plan as can be expected at this point. The patient has been stabilized within the capability of the emergency department. The patient will be transported for further care and management or will be moved to an observation or inpatient service. I have communicated with the staff or medical practitioner taking over this patient's care. Candelario Disclaimer: Candelario Disclaimer: This electronic medical record was generated, in whole or in part, using a voice recognition dictation system. Departure Departure Impression: Primary Impression: Sickle cell pain crisis Disposition: ADMITTED INPT THIS HOSP Admitting Physician: CAROL (Dr. Barkley) Condition: STABLE Referrals: UNKNOWN PCP NAME (PCP) ERNIE PERDOMO DO Sep 23, 2020 06:50
[2020-09-23] MEDS ORDERED: fentaNYL PF VIAL 100 MCG/2 ML VIAL IVP ONE (07:15)
[2020-09-23] MEDS ORDERED: IV NORMAL SALINE 1000ML BAG 1,000 ML IV ONE (07:15)
[2020-09-23] MEDS ORDERED: KETOROLAC 15 MG/ML VIAL. IVP ONE (07:15)
[2020-09-23 07:26] LABS: BASO # 0.1 x10^3/uL (0.0-0.2); BASO % 1 % (0-3); EOS # 0.1 x10^3/uL (0.0-0.7); EOS % 1 % (0-3); HEMATOCRIT 25.5 % (39.0-53.0); HEMOGLOBIN 9.1 g/dL (13.0-17.5); LYMPH # 3.1 x10^3/uL (1.0-4.8); LYMPH % 33 % (24-48); MEAN CORPUSCULAR HEMOGLOBIN 29 pg (25-35); MEAN CORPUSCULAR HGB CONC 36 g/dL (31-37); MEAN CORPUSCULAR VOLUME 83 fL (79-100); MONO % 11 % (0-9); NEUT # 5.1 x10^3/uL (1.8-7.7); NEUT % 54 % (31-73); PLATELET COUNT 386 x10^3/uL (140-400); RED BLOOD COUNT 3.08 x10^6/uL (4.30-5.70); RED CELL DISTRIBUTION WIDTH 24.5 % (11.5-14.5); WHITE BLOOD COUNT 9.5 x10^3/uL (4.0-11.0)
[2020-09-23 07:34] LABS: CALCIUM 8.8 mg/dL (8.5-10.1); CREATININE 0.7 mg/dL (0.7-1.3); GFR 169.1; POTASSIUM 4.5 mmol/L (3.5-5.1)
--- NOTE | 2020-09-23 07:59 | RAD ---
AP chest. HISTORY: Back pain, sickle cell crisis AP view was taken of the chest. There is mild scarring at the right costophrenic angle unchanged on t he recent study. Heart is upper normal in size. There is no pleural effusion. There are no acute infi ltrates. IMPRESSION: 1. Linear scarring right lung base. 2. No acute infiltrates. Electronically signed by: Jadon Low MD (09/23/2020 7:56 AM) [id number]
[2020-09-23] MEDS ORDERED: HYDROmorphone 2 MG/ML VIAL IVP ONE (08:15)
[2020-09-23] MEDS ORDERED: ACETAMINOPHEN 500 MG TABLET PO ONE (08:15)
[2020-09-23] MEDS ORDERED: LACTULOSE 20 GM/30 ML SOLUTION. PO PRN (11:00)
[2020-09-23] MEDS ORDERED: MAG HYDROX/ALUMINUM HYD/SIMETH 30 ML ORAL.SUSP PO PRN (11:00)
[2020-09-23] MEDS ORDERED: CALCIUM CARBONATE 500 MG TAB.CHEW PO PRN (11:00)
[2020-09-23] MEDS ORDERED: ZOLPIDEM 5 MG TABLET. PO PRN (11:00)
[2020-09-23] MEDS ORDERED: ONDANSETRON PF 4 MG/2 ML VIAL. IVP PRN (11:00)
[2020-09-23] MEDS ORDERED: ELECTROLYTE (NON-ICU) PROTOCOL. MC PRN (11:00)
[2020-09-23] MEDS ORDERED: PROCHLORPERAZINE 25 MG SUPP.RECT. PR PRN (11:00)
[2020-09-23] MEDS ORDERED: MAGNESIUM HYDROXIDE 2,400 MG/30 ML ORAL.SUSP. PO PRN (11:00)
[2020-09-23] MEDS ORDERED: BISACODYL 10 MG SUPP.RECT. PR PRN (11:00)
[2020-09-23] MEDS ORDERED: ACETAMINOPHEN 325 MG TABLET. PO PRN (11:00)
[2020-09-23 11:15] VITALS: BP 111/61
[2020-09-23] MEDS: HYDROmorphone 2 MG/ML VIAL IV PRN ×4 (11:22→15:27)
[2020-09-23] MEDS: oxyCODONE IR 5 MG TABLET PO PRN ×3 (11:22→18:34)
[2020-09-23] MEDS: IV RINGERS,LACTATED 1000ML 1,000 ML IV SCH ×2 (11:23→20:34)
[2020-09-23] MEDS: HYDROXYUREA 500 MG CAPSULE PO SCH (12:00)
[2020-09-23] MEDS: FOLIC ACID 1 MG TABLET. PO SCH (12:00)
[2020-09-23 12:18] LABS: ANISOCYTOSIS PRESENT; PLT ESTIMATE ADEQUATE (ADEQUATE); POIKILOCYTOSIS PRESENT; POLYCHROMASIA PRESENT; SICKLE CELLS PRESENT; TARGET CELLS PRESENT
[2020-09-23] MEDS ORDERED: fentaNYL PF VIAL 100 MCG/2 ML VIAL IVP PRN (16:30)
--- NOTE | 2020-09-23 16:49 | PDOC1 ---
History and Physical Date of Admission Date of Admission 09/23/2020 Identification/Chief Complaint Chief Complaint My back hurts Source Source: Chart review, Patient History of Present Illness History of Present Illness Patient is a 25-year-old gentleman with past medical history of sickle cell anemia who was in his usual state of health until this morning when he came into the emergency department for intractable back pain and leg pain. The patient denies any chest discomfort no cough sputum production no upper respiratory tract infection reports. The patient denies any black tarry stools no evidence of bleeding no abdominal pain, no urinary symptoms no other complaints were voiced by the patient. He denies changes to the color of his urine At the time of my visit the patient seems to be in no acute distress but the second and I entered into the room he starts grimacing and complaining of 10 out of 10 intensity pain. The patient seems to be on video call with someone that I am unable to identify and when that person addressed the same seems to calm down and stops complaining about pain almost immediately. Patient relates to me that he gets 100 mcg of fentanyl in urgent cares 3 doses before they let him go it seems like the patient is getting more tolerant to narcotics as time goes by. Plan of care has been explained in detail all concerns were addressed to the bes t of my abilities Past Medical History Pulmonary: No pertinent hx Heme/Onc: Sickle cell disease Past Surgical History Past Surgical History: No pertinent history Family History Family History: High Cholestrol, Hypertension Social History Smoke: No ALCOHOL: none Drugs: None Current Problem List Problem List Problems Medical Problems: (1) Sickle cell anemia with crisis Status: Acute (2) Sickle cell pain crisis Status: Acute Current Medications Current Medications Current Medications Medications (Trade) Dose Ordered Sig/Glenis Start Time Stop Time Status Last Admin Dose Admin Acetaminophen (Tylenol) 650 mg PRN Q6HRS PRN 09/23/20 11:00 Al Hydroxide/Mg Hydroxide (Mylanta Plus Xs) 30 ml PRN Q3HRS PRN 09/23/20 11:00 Bisacodyl (Dulcolax Supp) 10 mg PRN DAILY PRN 09/23/20 11:00 Calcium Carbonate/ Glycine (Tums) 500 mg PRN Q3HRS PRN 09/23/20 11:00 Fentanyl Citrate (Fentanyl 2ml Vial) 25 mcg PRN Q2HR PRN 09/23/20 16:30 09/23/20 16:36 25 MCG Folic Acid (Folic Acid) 1 mg DAILY 09/23/20 12:00 Hydromorphone HCl (Dilaudid) 0.4 mg PRN Q1HR PRN 09/23/20 11:00 09/23/20 15:27 0.4 MG Hydroxyurea (Hydrea) 1,500 mg DAILY 09/23/20 12:00 Info (Non-Icu Electrolyte Protocol) 1 ea PRN DAILY PRN 09/23/20 11:00 Ketorolac Tromethamine (Toradol 15mg Vial) 15 mg 1X ONCE 09/23/20 07:15 09/23/20 07:16 DC 09/23/20 07:12 15 MG Lactulose (Lactulose) 20 gm PRN Q12HR PRN 09/23/20 11:00 Magnesium Hydroxide (Milk Of Magnesia) 2,400 mg PRN Q12HR PRN 09/23/20 11:00 Ondansetron HCl (Zofran) 4 mg PRN Q6HRS PRN 09/23/20 11:00 Oxycodone HCl (Roxicodone) 5 mg PRN Q3HRS PRN 09/23/20 11:00 09/23/20 15:27 5 MG Prochlorperazine (Compazine) 25 mg PRN Q12HR PRN 09/23/20 11:00 Ringer's Solution 1,000 ml @ 100 mls/hr Q10H 09/23/20 11:00 09/24/20 16:59 09/23/20 11:23 100 MLS/HR Senna/Docusate Sodium (Senna Plus) 1 tab BID 09/23/20 21:00 Sodium Chloride 1,000 ml @ 1,000 mls/hr 1X ONCE 09/23/20 07:15 09/23/20 08:14 DC 09/23/20 07:13 1,000 MLS/HR Zolpidem Tartrate (Ambien) 5 mg PRN QHS PRN 09/23/20 11:00 Allergies Allergies Allergies Coded Allergies Type Severity Reaction Last Updated Verified No Known Drug Allergies 09/11/20 No ROS Review of System CONSTITUTIONAL: No fever or chills EYES: No recent changes SKIN: No rash or itching CARDIOVASCULAR: No chest pain, syncope, palpitations, or edema RESPIRATORY: No SOB or cough GASTROINTESTINAL: No nausea, vomiting or abdominal pain NEUROLOGICAL: No headaches or weakness ENDOCRINE: No cold or heat intolerance GENITOURINARY: No urgency or frequency of urination MUSCULOSKELETAL: No back pain or joint pain LYMPHATICS: No enlarged lymph nodes PSYCHIATRIC: No anxiety or depression Physical Exam Physical Exam GEN.: No apparent distress. Alert and oriented. HEENT: Head is normocephalic, atraumatic NECK: Supple. LUNGS: Clear to auscultation. HEART: RRR, S1, S2 present. Peripheral pulses intact ABDOMEN: Soft, nontender. Positive bowel sounds. EXTREMITIES: Without any cyanosis. NEUROLOGIC: Normal speech, normal tone PSYCHIATRIC: Normal affect, normal mood. SKIN: No ulcerations Vitals Vitals Vital Signs Date Time Temp Pulse Resp B/P (MAP) Pulse Ox O2 Delivery O2 Flow Rate FiO2 09/23/20 16:37 Room Air 09/23/20 16:10 93 09/23/20 11:15 97.9 56 16 111/61 (78) 97.9 Labs Labs Laboratory Tests Test 09/23/20 07:15 White Blood Count 9.5 x10^3/uL (4.0-11.0) Red Blood Count 3.08 x10^6/uL (4.30-5.70) Hemoglobin 9.1 g/dL (13.0-17.5) Hematocrit 25.5 % (39.0-53.0) Mean Corpuscular Volume 83 fL (79-100) Mean Corpuscular Hemoglobin 29 pg (25-35) Mean Corpuscular Hemoglobin Concent 36 g/dL (31-37) Red Cell Distribution Width 24.5 % (11.5-14.5) Platelet Count 386 x10^3/uL (140-400) Neutrophils (%) (Auto) 54 % (31-73) Lymphocytes (%) (Auto) 33 % (24-48) Monocytes (%) (Auto) 11 % (0-9) Eosinophils (%) (Auto) 1 % (0-3) Basophils (%) (Auto) 1 % (0-3) Neutrophils # (Auto) 5.1 x10^3/uL (1.8-7.7) Lymphocytes # (Auto) 3.1 x10^3/uL (1.0-4.8) Monocytes # (Auto) 1.0 x10^3/uL (0.0-1.1) Eosinophils # (Auto) 0.1 x10^3/uL (0.0-0.7) Basophils # (Auto) 0.1 x10^3/uL (0.0-0.2) Platelet Estimate Adequate (ADEQUATE) Polychromasia Present Poikilocytosis Present Anisocytosis Present Sickle Cells Present Target Cells Present Sodium Level 140 mmol/L (136-145) Potassium Level 4.5 mmol/L (3.5-5.1) Chloride Level 105 mmol/L (98-107) Carbon Dioxide Level 26 mmol/L (21-32) Anion Gap 9 (6-14) Blood Urea Nitrogen 6 mg/dL (8-26) Creatinine 0.7 mg/dL (0.7-1.3) Estimated GFR (Cockcroft-Gault) 169.1 Glucose Level 87 mg/dL (70-99) Calcium Level 8.8 mg/dL (8.5-10.1) Laboratory Tests Test 09/23/20 07:15 White Blood Count 9.5 x10^3/uL (4.0-11.0) Red Blood Count 3.08 x10^6/uL (4.30-5.70) Hemoglobin 9.1 g/dL (13.0-17.5) Hematocrit 25.5 % (39.0-53.0) Mean Corpuscular Volume 83 fL (79-100) Mean Corpuscular Hemoglobin 29 pg (25-35) Mean Corpuscular Hemoglobin Concent 36 g/dL (31-37) Red Cell Distribution Width 24.5 % (11.5-14.5) Platelet Count 386 x10^3/uL (140-400) Neutrophils (%) (Auto) 54 % (31-73) Lymphocytes (%) (Auto) 33 % (24-48) Monocytes (%) (Auto) 11 % (0-9) Eosinophils (%) (Auto) 1 % (0-3) Basophils (%) (Auto) 1 % (0-3) Neutrophils # (Auto) 5.1 x10^3/uL (1.8-7.7) Lymphocytes # (Auto) 3.1 x10^3/uL (1.0-4.8) Monocytes # (Auto) 1.0 x10^3/uL (0.0-1.1) Eosinophils # (Auto) 0.1 x10^3/uL (0.0-0.7) Basophils # (Auto) 0.1 x10^3/uL (0.0-0.2) Platelet Estimate Adequate (ADEQUATE) Polychromasia Present Poikilocytosis Present Anisocytosis Present Sickle Cells Present Target Cells Present Sodium Level 140 mmol/L (136-145) Potassium Level 4.5 mmol/L (3.5-5.1) Chloride Level 105 mmol/L (98-107) Carbon Dioxide Level 26 mmol/L (21-32) Anion Gap 9 (6-14) Blood Urea Nitrogen 6 mg/dL (8-26) Creatinine 0.7 mg/dL (0.7-1.3) Estimated GFR (Cockcroft-Gault) 169.1 Glucose Level 87 mg/dL (70-99) Calcium Level 8.8 mg/dL (8.5-10.1) VTE Prophylaxis Ordered VTE Prophylaxis Devices: No VTE Pharmacological Prophylaxi: Yes Assessment/Plan Assessment/Plan SS anemia with acute pain crisis -no history of CVA or thrombosis.Currently on Hydrea 1500 mg daily. 100mcg of fentanyl q90-120 minutes has been his pain regimen at [facility] in the past as per the patient H/o AVN right hip Depression Fever Constipation Intractable back pain Plan IV fluid resuscitation We will start with fentanyl 50 mcg after the Dilaudid that has been given to him in the emergency department Continue to follow neurological exam Monitor for acute chest syndrome Further recommendations based on the clinical course DVT prophylaxis with SCDs Justifications for Admission Other Justification sickle cell crisis ZUHAIR LANGE MD Sep 23, 2020 16:49
[2020-09-23] MEDS: fentaNYL PF VIAL 100 MCG/2 ML VIAL IVP PRN ×3 (18:33→22:42)
[2020-09-23 19:00] VITALS: BP 131/77
[2020-09-23] MEDS: SENNOSIDES/DOCUSATE 8.6/50MG TABLET. PO SCH (20:32)
[2020-09-23 21:19] LABS: BILIRUBIN,URINE NEGATIVE (NEG); CLARITY,URINE CLEAR; COLOR,URINE AMBER; NITRITE,URINE NEGATIVE (NEG); PROTEIN,URINE NEGATIVE (NEG-TRACE)
[2020-09-23 21:25] LABS: BARBITURATES NEG (NEG); BENZODIAZEPINES NEG (NEG); CANNABINOIDS POS (NEG); COCAINE NEG (NEG); METHADONE NEG (NEG); OPIATES POS (NEG); PHENCYCLIDINE NEG (NEG)
[2020-09-23 21:27] LABS: AMPHETAMINE/METHAMPHETAMINE NEG (NEG)
[2020-09-23 21:32] LABS: BACTERIA,URINE 0 /HPF (0-FEW); RBC,URINE 0 /HPF (0-2); WBC,URINE 0 /HPF (0-4)
[2020-09-23 23:00] VITALS: BP 137/94
[2020-09-24] VITALS (7 sets, daily range): BP systolic 108–130; BP diastolic 60–76
[2020-09-24] MEDS: fentaNYL PF VIAL 100 MCG/2 ML VIAL IVP PRN ×7 (00:31→14:10)
[2020-09-24] MEDS: oxyCODONE IR 5 MG TABLET PO PRN ×4 (00:31→12:35)
[2020-09-24] MEDS: IV RINGERS,LACTATED 1000ML 1,000 ML IV SCH ×2 (06:35→16:21)
[2020-09-24] MEDS: FOLIC ACID 1 MG TABLET. PO SCH (09:31)
[2020-09-24] MEDS: SENNOSIDES/DOCUSATE 8.6/50MG TABLET. PO SCH ×2 (09:32→21:00)
[2020-09-24] MEDS: HYDROXYUREA 500 MG CAPSULE PO SCH (09:36)
[2020-09-24 10:44] LABS: INFLUENZA A PATIENT NEGATIVE (NEGATIVE); INFLUENZA B PATIENT NEGATIVE (NEGATIVE)
[2020-09-24 11:46] LABS: BASO # 0.1 x10^3/uL (0.0-0.2); BASO % 1 % (0-3); EOS % 0 % (0-3); HEMATOCRIT 24.3 % (39.0-53.0); HEMOGLOBIN 8.6 g/dL (13.0-17.5); LYMPH % 20 % (24-48); MEAN CORPUSCULAR HEMOGLOBIN 29 pg (25-35); MEAN CORPUSCULAR HGB CONC 36 g/dL (31-37); MEAN CORPUSCULAR VOLUME 82 fL (79-100); MONO # 1.3 x10^3/uL (0.0-1.1); MONO % 13 % (0-9); NEUT # 6.5 x10^3/uL (1.8-7.7); NEUT % 66 % (31-73); PLATELET COUNT 349 x10^3/uL (140-400); RED BLOOD COUNT 2.98 x10^6/uL (4.30-5.70); RED CELL DISTRIBUTION WIDTH 24.8 % (11.5-14.5); WHITE BLOOD COUNT 9.8 x10^3/uL (4.0-11.0)
--- NOTE | 2020-09-24 12:42 | NUR ---
SW following for discharge planning. Spoke with RN and reviewed chart. SW familiar with this pt from previous admissions. SW met with pt. Discharge plan is home, self-care. No anticipated SW needs on discharge.
[2020-09-24] MEDS: IV NORMAL SALINE 1000ML BAG 1,000 ML IV SCH (14:30)
[2020-09-24] MEDS ORDERED: NALOXONE 0.4 MG/ML VIAL. IV PRN (14:30)
--- NOTE | 2020-09-24 17:24 | PDOC ---
[employer] PROGRESS NOTE Date of Service DOS: DATE: 09/24/20 TIME: 17:18 Chief Complaint Chief Complaint SS anemia with acute pain crisis -no history of CVA or thrombosis.Currently on Hydrea 1500 mg daily. 100mcg of fentanyl q90-120 minutes has been his pain regimen at [facility] in the past as per the patient H/o AVN right hip Depression Fever Constipation Intractable back pain Plan IV fluid resuscitation We will start with fentanyl 50 mcg after the Dilaudid that has been given to him in the emergency department Continue to follow neurological exam Monitor for acute chest syndrome Further recommendations based on the clinical course DVT prophylaxis with SCDs History of Present Illness History of Present Illness Patient is a 25-year-old gentleman with past medical history of sickle cell anemia who was in his usual state of health until this morning when he came into the emergency department for intractable back pain and leg pain. The patient denies any chest discomfort no cough sputum production no upper respiratory trac t infection reports. The patient denies any black tarry stools no evidence of bleeding no abdominal pain, no urinary symptoms no other complaints were voiced by the patient. He denies changes to the color of his urine At the time of my visit the patient seems to be in no acute distress but the second and I entered into the room he starts grimacing and complaining of 10 out of 10 intensity pain. The patient seems to be on video call with someone that I am unable to identify and when that person addressed the same seems to calm down and stops complaining about pain almost immediately. Patient relates to me that he gets 100 mcg of fentanyl in urgent cares 3 doses before they let him go it seems like the patient is getting more tolerant to narcotics as time goes by. Plan of care has been explained in detail all concerns were addressed to the best of my abilities. 09/24: Patient seen and evaluated. Reports uncontrolled pain, mostly in upper back and bilateral thighs. He denies chest pain or SOB. Will initiate fentanyl FREELANCE INTERPRETER/TRANSLATOR, as he chronically derives better pain relief with this medication. Continue IV fluids, continue hydroxyurea, follow Hb, transfuse <7. Discussed with RN. Vitals/I&O Vitals/I&O: Vital Signs Date Time Temp Pulse Resp B/P (MAP) Pulse Ox O2 Delivery O2 Flow Rate FiO2 09/24/20 16:23 82 130/68 (88) 09/24/20 16:15 Room Air 09/24/20 15:00 100.8 18 98 100.8 I & O 09/23/20 09/23/20 09/24/20 15:00 23:00 07:00 Intake Total 1180 ml 1240 ml 2120 ml Output Total 1000 ml 2375 ml Balance 1180 ml 240 ml -255 ml Physical Exam General: Alert, Oriented X3, moderate distress Heart: Regular rate Lungs: Clear Abdomen: Normal bowel sounds Extremities: No clubbing, No cyanosis Skin: No rashes, No breakdown Labs Labs: Laboratory Tests Test 09/23/20 20:15 09/24/20 10:14 09/24/20 11:10 Urine Collection Type Unknown Urine Color Elsa Urine Clarity Clear Urine pH 7.0 (<5.0-8.0) Urine Specific [place] 1.010 (1.000-1.030) Urine Protein Negative mg/dL (NEG-TRACE) Urine Glucose (UA) Negative mg/dL (NEG) Urine Ketones (Stick) Negative mg/dL (NEG) Urine Blood Negative (NEG) Urine Nitrite Negative (NEG) Urine Bilirubin Negative (NEG) Urine Urobilinogen Dipstick 1.0 mg/dL (0.2 mg/dL) Urine Leukocyte Esterase Negative (NEG) Urine RBC 0 /HPF (0-2) Urine WBC 0 /HPF (0-4) Urine Squamous Epithelial Cells Occ /LPF Urine Bacteria 0 /HPF (0-FEW) Urine Opiates Screen Pos (NEG) Urine Methadone Screen Neg (NEG) Urine Barbiturates Neg (NEG) Urine Phencyclidine Screen Neg (NEG) Urine Amphetamine/Methamphetamine Neg (NEG) Urine Benzodiazepines Screen Neg (NEG) Urine Cocaine Screen Neg (NEG) Urine Cannabinoids Screen Pos (NEG) Urine Ethyl Alcohol Neg (NEG) Influenza Type A Antigen Negative (NEGATIVE) Influenza Type B Antigen Negative (NEGATIVE) White Blood Count 9.8 x10^3/uL (4.0-11.0) Red Blood Count 2.98 x10^6/uL (4.30-5.70) Hemoglobin 8.6 g/dL (13.0-17.5) Hematocrit 24.3 % (39.0-53.0) Mean Corpuscular Volume 82 fL (79-100) Mean Corpuscular Hemoglobin 29 pg (25-35) Mean Corpuscular Hemoglobin Concent 36 g/dL (31-37) Red Cell Distribution Width 24.8 % (11.5-14.5) Platelet Count 349 x10^3/uL (140-400) Neutrophils (%) (Auto) 66 % (31-73) Lymphocytes (%) (Auto) 20 % (24-48) Monocytes (%) (Auto) 13 % (0-9) Eosinophils (%) (Auto) 0 % (0-3) Basophils (%) (Auto) 1 % (0-3) Neutrophils # (Auto) 6.5 x10^3/uL (1.8-7.7) Lymphocytes # (Auto) 2.0 x10^3/uL (1.0-4.8) Monocytes # (Auto) 1.3 x10^3/uL (0.0-1.1) Eosinophils # (Auto) 0.0 x10^3/uL (0.0-0.7) Basophils # (Auto) 0.1 x10^3/uL (0.0-0.2) Assessment and Plan Assessmemt and Plan Problems Medical Problems: (1) Sickle cell anemia with crisis Status: Acute (2) Sickle cell pain crisis Status: Acute Comment Review of Relevant I have reviewed the following items misty (where applicable) has been applied. Medications: Current Medications Medications (Trade) Dose Ordered Sig/Glenis Route PRN Reason Start Time Stop Time Status Last Admin Dose Admin Senna/Docusate Sodium (Senna Plus) 1 tab BID PO 09/23/20 21:00 09/24/20 09:32 Fentanyl Citrate 30 ml @ 0 mls/hr CONT PRN PRN IV PER PROTOCOL 09/24/20 14:30 09/24/20 15:14 Justifications for Admission Other Justification sickle cell crisis STEPHANY DEAN MD Sep 24, 2020 17:24
[2020-09-25] MEDS: IV RINGERS,LACTATED 1000ML 1,000 ML IV SCH ×3 (00:44→23:00)
[2020-09-25 07:00] VITALS: BP 121/69
[2020-09-25] MEDS: SENNOSIDES/DOCUSATE 8.6/50MG TABLET. PO SCH ×2 (08:28→20:37)
[2020-09-25] MEDS: HYDROXYUREA 500 MG CAPSULE PO SCH (08:28)
[2020-09-25] MEDS: FOLIC ACID 1 MG TABLET. PO SCH (08:28)
[2020-09-25 10:46] VITALS: BP 108/74
[2020-09-25] MEDS: IV NORMAL SALINE 1000ML BAG 1,000 ML IV SCH (11:22)
--- NOTE | 2020-09-25 14:17 | NUR ---
SW following for discharge planning. Spoke with RN and reviewed chart. Discharge plan remains home, self-care.
[2020-09-25 15:00] VITALS: BP 112/80
--- NOTE | 2020-09-25 16:46 | PDOC ---
[employer] PROGRESS NOTE Date of Service DOS: DATE: 09/25/20 TIME: 16:43 Chief Complaint Chief Complaint SS anemia with acute pain crisis -no history of CVA or thrombosis.Currently on Hydrea 1500 mg daily. 100mcg of fentanyl q90-120 minutes has been his pain regimen at [facility] in the past as per the patient H/o AVN right hip Depression Fever Constipation Intractable back pain Plan IV fluid resuscitation We will start with fentanyl 50 mcg after the Dilaudid that has been given to him in the emergency department Continue to follow neurological exam Monitor for acute chest syndrome Further recommendations based on the clinical course DVT prophylaxis with SCDs History of Present Illness History of Present Illness Patient is a 25-year-old gentleman with past medical history of sickle cell anemia who was in his usual state of health until this morning when he came into the emergency department for intractable back pain and leg pain. The patient denies any chest discomfort no cough sputum production no upper respiratory trac t infection reports. The patient denies any black tarry stools no evidence of bleeding no abdominal pain, no urinary symptoms no other complaints were voiced by the patient. He denies changes to the color of his urine At the time of my visit the patient seems to be in no acute distress but the second and I entered into the room he starts grimacing and complaining of 10 out of 10 intensity pain. The patient seems to be on video call with someone that I am unable to identify and when that person addressed the same seems to calm down and stops complaining about pain almost immediately. Patient relates to me that he gets 100 mcg of fentanyl in urgent cares 3 doses before they let him go it seems like the patient is getting more tolerant to narcotics as time goes by. Plan of care has been explained in detail all concerns were addressed to the best of my abilities. 09/24: Patient seen and evaluated. Reports uncontrolled pain, mostly in upper back and bilateral thighs. He denies chest pain or SOB. 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 Continue IV fluids, continue hydroxyurea, follow Hb, transfuse <7. Discussed with RN. 09/25: Patient seen and evaluated. Afebrile. Pain better controlled with MIXING AND DISPENSING SUPERVISOR. Denies chest pain or shortness of breath. Continue to follow monitor reticulocyte count and hemoglobin. Continue IV fluids. Vitals/I&O Vitals/I&O: Vital Signs Date Time Temp Pulse Resp B/P (MAP) Pulse Ox O2 Delivery O2 Flow Rate FiO2 09/25/20 15:00 99.3 71 16 112/80 (91) 100 99.3 09/25/20 09:48 Room Air I & O 09/24/20 09/24/20 09/25/20 15:00 23:00 07:00 Intake Total 1740 ml Output Total 1150 ml 1300 ml 2200 ml Balance -1150 ml -1300 ml -460 ml Physical Exam General: Alert, Oriented X3, mild distress Heart: Regular rate Lungs: Clear Abdomen: Normal bowel sounds Extremities: No clubbing, No cyanosis Skin: No rashes, No breakdown Assessment and Plan Assessmemt and Plan Problems Medical Problems: (1) Sickle cell anemia with crisis Status: Acute (2) Sickle cell pain crisis Status: Acute Comment Review of Relevant I have reviewed the following items misty (where applicable) has been applied. Justifications for Admission Other Justification sickle cell crisis STEPHANY DEAN MD Sep 25, 2020 16:46
[2020-09-25] MEDS ORDERED: POLYETHYLENE GLYCOL 3350 17 GM PACKET. PO PRN (17:30)
[2020-09-25 19:00] VITALS: BP_SYST 130; BP_SYST 98; BP_DIAS 60; BP_DIAS 64
[2020-09-25 22:56] VITALS: BP 111/71
[2020-09-26 02:29] VITALS: BP 131/71
[2020-09-26 07:00] VITALS: BP 129/71
--- NOTE | 2020-09-26 08:38 | PDOC ---
[employer] PROGRESS NOTE Date of Service DOS: DATE: 09/26/20 TIME: 08:36 Chief Complaint Chief Complaint SS anemia with acute pain crisis -no history of CVA or thrombosis.Currently on Hydrea 1500 mg daily. 100mcg of fentanyl q90-120 minutes has been his pain regimen at [facility] in the past as per the patient H/o AVN right hip Depression Fever Constipation Intractable back pain Plan IV fluid resuscitation We will start with fentanyl 50 mcg after the Dilaudid that has been given to him in the emergency department Continue to follow neurological exam Monitor for acute chest syndrome Further recommendations based on the clinical course DVT prophylaxis with SCDs History of Present Illness History of Present Illness Patient is a 25-year-old gentleman with past medical history of sickle cell anemia who was in his usual state of health until this morning when he came into the emergency department for intractable back pain and leg pain. The patient denies any chest discomfort no cough sputum production no upper respiratory trac t infection reports. The patient denies any black tarry stools no evidence of bleeding no abdominal pain, no urinary symptoms no other complaints were voiced by the patient. He denies changes to the color of his urine At the time of my visit the patient seems to be in no acute distress but the second and I entered into the room he starts grimacing and complaining of 10 out of 10 intensity pain. The patient seems to be on video call with someone that I am unable to identify and when that person addressed the same seems to calm down and stops complaining about pain almost immediately. Patient relates to me that he gets 100 mcg of fentanyl in urgent cares 3 doses before they let him go it seems like the patient is getting more tolerant to narcotics as time goes by. Plan of care has been explained in detail all concerns were addressed to the best of my abilities. 09/24: Patient seen and evaluated. Reports uncontrolled pain, mostly in upper back and bilateral thighs. He denies chest pain or SOB. Will initiate fentanyl CARPET MECHANIC, as he chronically derives better pain relief with this medication. Continue IV fluids, continue hydroxyurea, follow Hb, transfuse <7. Discussed with RN. 09/25: Patient seen and evaluated. Afebrile. Pain better controlled with CARPET MECHANIC. Denies chest pain or shortness of breath. Continue to follow monitor reticulocyte count and hemoglobin. Continue IV fluids. 09/26. Patient remains afebrile, denies chest pain or shortness of breath. Still complains of upper back pain and bilateral leg pain, better controlled with CARPET MECHANIC. Denies chest pain or shortness of breath. Continue IV fluid hydration and hydroxyurea. Morning labs pending. Vitals/I&O Vitals/I&O: Vital Signs Date Time Temp Pulse Resp B/P (MAP) Pulse Ox O2 Delivery O2 Flow Rate FiO2 09/26/20 02:29 99.7 70 24 131/71 (91) 98 Room Air 99.7 I & O 09/25/20 09/25/20 09/26/20 15:00 23:00 07:00 Intake Total 0 ml 240 ml Output Total 2200 ml 700 ml 700 ml Balance -2200 ml -700 ml -460 ml Physical Exam General: Alert, Oriented X3, mild distress Heart: Regular rate Lungs: Clear Abdomen: Normal bowel sounds Extremities: No clubbing, No cyanosis Skin: No rashes, No breakdown Assessment and Plan Assessmemt and Plan Problems Medical Problems: (1) Sickle cell anemia with crisis Status: Acute (2) Sickle cell pain crisis Status: Acute Comment Review of Relevant I have reviewed the following items misty (where applicable) has been applied. Justifications for Admission Other Justification sickle cell crisis STEPHANY DEAN MD Sep 26, 2020 08:38
[2020-09-26] MEDS: FOLIC ACID 1 MG TABLET. PO SCH (08:39)
[2020-09-26] MEDS: SENNOSIDES/DOCUSATE 8.6/50MG TABLET. PO SCH ×2 (08:39→21:32)
[2020-09-26] MEDS: HYDROXYUREA 500 MG CAPSULE PO SCH (08:44)
[2020-09-26 11:00] VITALS: BP_SYST 108; BP_SYST 115; BP_DIAS 42; BP_DIAS 73
--- NOTE | 2020-09-26 11:29 | NUR ---
SW following for discharge planning. Spoke with RN and reviewed chart. Discharge plan remains home, self-care. Pt not ready for discharge today. No anticipated SW needs on discharge.
[2020-09-26] MEDS: IV RINGERS,LACTATED 1000ML 1,000 ML IV SCH ×2 (12:32→22:31)
[2020-09-26] MEDS: IV NORMAL SALINE 1000ML BAG 1,000 ML IV SCH (13:30)
[2020-09-26 15:00] VITALS: BP 114/57
[2020-09-26 19:00] VITALS: BP 139/77
[2020-09-26 23:00] VITALS: BP 122/69
--- NOTE | 2020-09-27 01:00 | NUR ---
Patient took gown and funeral service manager off earlier in the shift, "I don't want to wear this...I'm already hot, all this makes me more hot" monitor read and discontinued.
[2020-09-27 03:14] VITALS: BP 119/97
[2020-09-27 07:00] VITALS: BP 114/67
[2020-09-27] MEDS: IV RINGERS,LACTATED 1000ML 1,000 ML IV SCH (08:19)
--- NOTE | 2020-09-27 09:04 | PDOC3 ---
Discharge Summary Visit Information Date of Admission: Sep 23, 2020 Date of Discharge: Sep 27, 2020 Admitting Diagnosis Comment: SS anemia with acute pain crisis -no history of CVA or thrombosis.Currently on Hydrea 1500 mg daily. 100mcg of fentanyl q90-120 minutes has been his pain regimen at [facility] in the past as per the patient H/o AVN right hip Depression Fever Constipation Intractable back pain Final Diagnosis Problems Medical Problems: (1) Sickle cell anemia with crisis Status: Acute (2) Sickle cell pain crisis Status: Acute SS anemia with acute pain crisis -no history of CVA or thrombosis.Currently on Hydrea 1500 mg daily. 100mcg of fentanyl q90-120 minutes has been his pain regimen at [facility] in the past as per the patient H/o AVN right hip Depression stable Fever resolved Constipation resolved Intractable back pain resolved Brief Hospital Course Allergies Allergies Coded Allergies Type Severity Reaction Last Updated Verified No Known Drug Allergies 09/11/20 No Vital Signs Vital Signs Date Time Temp Pulse Resp B/P (MAP) Pulse Ox O2 Delivery O2 Flow Rate FiO2 09/27/20 07:00 98.7 80 17 114/67 (83) 94 Room Air 98.7 Lab Results Laboratory Tests Test 09/26/20 10:25 Red Blood Count 3.11 x10^6/uL (4.30-5.70) Absolute Reticulocyte Count 0.124 x10^6/uL (0.020-0.120) Percent Reticulocyte Count 3.9 % (0.5-2.3) Immature Reticulocyte Fraction 0.68 (0.20-0.60) Laboratory Tests Test 09/26/20 10:25 Red Blood Count 3.11 x10^6/uL (4.30-5.70) Absolute Reticulocyte Count 0.124 x10^6/uL (0.020-0.120) Percent Reticulocyte Count 3.9 % (0.5-2.3) Immature Reticulocyte Fraction 0.68 (0.20-0.60) Brief Hospital Course History of Present Illness Patient is a 25-year-old gentleman with past medical history of sickle cell anemia who was in his usual state of health until this morning when he came into the emergency department for intractable back pain and leg pain. The patient denies any chest discomfort no cough sputum production no upper respiratory tract infection reports. The patient denies any black tarry stools no evidence of bleeding no abdominal pain, no urinary symptoms no other complaints were voiced by the patient. He denies changes to the color of his urine At the time of my visit the patient seems to be in no acute distress but the second and I entered into the room he starts grimacing and complaining of 10 out of 10 intensity pain. The patient seems to be on video call with someone that I am unable to identify and when that person addressed the same seems to calm down and stops complaining about pain almost immediately. Patient relates to me that he gets 100 mcg of fentanyl in urgent cares 3 doses before they let him go it seems like the patient is getting more tolerant to narcotics as time goes by. Plan of care has been explained in detail all concerns were addressed to the best of my abilities 22: Patient seen and evaluated. Reports uncontrolled pain, mostly in upper back and bilateral thighs. He denies chest pain or SOB. Will initiate fentanyl PORTAINER OPERATOR, as he chronically derives better pain relief with this medication. Continue IV fluids, continue hydroxyurea, follow Hb, transfuse <7. Discussed with RN. 09/25: Patient seen and evaluated. Afebrile. Pain better controlled with PORTAINER OPERATOR. Denies chest pain or shortness of breath. Continue to follow monitor reticulocyte count and hemoglobin. Continue IV fluids. 09/26. Patient remains afebrile, denies chest pain or shortness of breath. Still complains of upper back pain and bilateral leg pain, better controlled with PORTAINER OPERATOR. Denies chest pain or shortness of breath. Continue IV fluid hydration and hydroxyurea. Morning labs pending. 09/27: Patient was able to control hsi pain with PORTAINER OPERATOR, he is requesting pain medications upon discharge since he is establishing care with a new doctor. Win ited supply of oxycodone 15 was provided to the patient please see below for list of meds all concerns addressed to the best of my abilities. Physical Exam General: Alert, Oriented X3, mild distress Heart: Regular rate Lungs: Clear Abdomen: Normal bowel sounds Extremities: No clubbing, No cyanosis Skin: No rashes, No breakdown Assessment Assessment IMAGING REPORT Signed PATIENT: RASHAUN CHURCH EACCOUNT: [id number] : 1995 LOCATION: ER AGE: 25 SEX: M EXAM STATUS: REG ER ORD. PHYSICIAN: ERNIE PERDOMO DO REASON: back pain, sickle cell crisis PROCEDURE: CHEST AP ONLY AP chest. HISTORY: Back pain, sickle cell crisis AP view was taken of the chest. There is mild scarring at the right costophrenic angle unchanged on the recent study. Heart is upper normal in size. There is no pleural effusion. There are no acute infiltrates. IMPRESSION: 1. Linear scarring right lung base. 2. No acute infiltrates. Electronically signed by: Jadon Low MD (09/23/2020 7:56 AM) [id number] Discharge Information Condition at Discharge: Improved Follow Up: Weeks Disposition/Orders: D/C to Home Scheduled Hydroxyurea (Hydroxyurea) 500 Mg Capsule, 1,500 MG PO DAILY for sickle cell, (Reported) Entered as Reported by: CHAPIS KNOX on 06/21/201941 Last Action: Continued on 09/23/201100 by ZUHAIR LANGE MD [Folic Acid] , 1 MG PO DAILY, (Reported) Entered as Reported by: CHAPIS KNOX on 06/20/20226 Last Action: Converted on 09/23/201100 by ZUHAIR LANGE MD Justicifation of Admission Dx: Justifications for Admission: Justification of Admission Dx: N/A Aspiration Pneumonia: Hemodynamic Instability Sepsis: Dehydration Angina: Cresendo Worsening of Sym ZUHAIR LANGE MD Sep 27, 2020 09:04
[2020-09-27] MEDS ORDERED: OXYC15TA3 PO (09:06)
--- NOTE | 2020-09-27 09:38 | NUR ---
SW following. Discussed with RN, discharge order for home with self care. RN advised no SW needs.
[2020-09-27] MEDS: SENNOSIDES/DOCUSATE 8.6/50MG TABLET. PO SCH (09:41)
[2020-09-27] MEDS: FOLIC ACID 1 MG TABLET. PO SCH (09:42)
[2020-09-27] MEDS: oxyCODONE IR 5 MG TABLET PO PRN (09:42)
[2020-09-27] MEDS: HYDROXYUREA 500 MG CAPSULE PO SCH (09:49)
--- NOTE | 2020-09-27 10:08 | NUR ---
Discharge Note: RASHAUN CHURCH [address] Discharge instructions and discharge home medications reviewed with Patient and a copy given. All questions have been answered and understanding verbalized. The following instructions and handouts were given: discharge instructions, new prescription, education and follow up recommedations. Discontinued lines and drains: Peripheral IV discontinued intact. Patient discharged to Home or Self Care with Family Member via Wheelchair off unit by POST SECONDARY PROFESSIONAL.
== END 2020-09-27 10:08 | disposition home or self-care (01) | DRG 812 ==
LOC: ER 06:26 → 5 NORTH 09:22
PROVIDERS: ADMIT Internal Medicine; ATTEND Internal Medicine
DX: D57.00 Hb-SS disease with crisis, unspecified (principal); R65.10 Systemic inflammatory response syndrome (SIRS) of non-infectious origin without acute organ dysfunction; F32.9 Major depressive disorder, single episode, unspecified; R50.9 Fever, unspecified; K59.00 Constipation, unspecified; Z82.49 Family history of ischemic heart disease and other diseases of the circulatory system; M54.6 Pain in thoracic spine; M79.604 Pain in right leg; M79.605 Pain in left leg
CPT/HCPCS: 36415; 71045; 80048; 80307; 81001; 85025; 85045; 87804; J1170; J1885; J3010; J7030; J7120; G0378

== ENCOUNTER 2020-10-05 06:20 | Emergency (ER) | payer BC ==
[~2020-10-05] VITALS: Ht 175.3 cm; Wt 80.9 kg
[2020-10-05] MEDS ORDERED: METOCLOPRAMIDE HCL 10 MG/2 ML VIAL. IVP ONE (07:00)
[2020-10-05] MEDS ORDERED: fentaNYL PF VIAL 100 MCG/2 ML VIAL IVP ONE (07:00)
[2020-10-05 07:08] LABS: BASO # 0.1 x10^3/uL (0.0-0.2); BASO % 2 % (0-3); EOS # 0.1 x10^3/uL (0.0-0.7); EOS % 2 % (0-3); HEMATOCRIT 24.6 % (39.0-53.0); HEMOGLOBIN 8.7 g/dL (13.0-17.5); LYMPH # 2.6 x10^3/uL (1.0-4.8); LYMPH % 41 % (24-48); MEAN CORPUSCULAR HEMOGLOBIN 29 pg (25-35); MEAN CORPUSCULAR HGB CONC 35 g/dL (31-37); MEAN CORPUSCULAR VOLUME 82 fL (79-100); MONO % 16 % (0-9); NEUT # 2.5 x10^3/uL (1.8-7.7); NEUT % 39 % (31-73); PLATELET COUNT 453 x10^3/uL (140-400); RED BLOOD COUNT 2.99 x10^6/uL (4.30-5.70); RED CELL DISTRIBUTION WIDTH 24.4 % (11.5-14.5); WHITE BLOOD COUNT 6.3 x10^3/uL (4.0-11.0)
--- NOTE | 2020-10-05 07:26 | PHYS DOC ---
Past Medical History Past Medical History: Other Additional Past Medical Histor: sickle cell Past Surgical History: Other Additional Past Surgical Histo: L HIP BONE GRAFT Smoking Status: Current Some Day Smoker Alcohol Use: None Drug Use: Marijuana General Adult EDM: Chief Complaint: PAIN CONTROL HPI: HPI: Patient is a 25 year old male with history of sickle cell disease presenting to ER due to sickle cell pain crisis. Patient is complaining of pain in his lower extremity and back area. Patient denies any injury. Patient has been evaluated here multiple times for pain crisis. He was just admitted here last week, discharged on September 27. Patient still has not seen a sickle cell doctor as he is supposed to be. Patient denies any cough or fever. Patient denies any abdominal pain. Review of Systems: Review of Systems: Constitutional: Denies fever or chills. [] Eyes: Denies change in visual acuity. [] HENT: Denies nasal congestion or sore throat. [] Respiratory: Denies cough or shortness of breath. [] Cardiovascular: Denies chest pain or edema. [] GI: Denies abdominal pain, nausea, vomiting, bloody stools or diarrhea. [] : Denies dysuria. [] Musculoskeletal: Positive for low back pain, lower extremity pain. Integument: Denies rash. [] Neurologic: Denies headache, focal weakness or sensory changes. [] Endocrine: Denies polyuria or polydipsia. [] Lymphatic: Denies swollen glands. [] Psychiatric: Denies depression or anxiety. [] Heart Score: Risk Factors: Risk Factors: DM, Current or recent (<one month) smoker, HTN, HLP, family history of CAD, obesity. Risk Scores: Score 0 - 3: 2.5% MACE over next 6 weeks - Discharge Home Score 4 - 6: 20.3% MACE over next 6 weeks - Admit for Clinical Observation Score 7 - 10: 72.7% MACE over next 6 weeks - Early Invasive Strategies Current Medications: Current Medications Medications (Trade) Dose Ordered Sig/G[facility]is Start Time Stop Time Status Last Admin Dose Admin Fentanyl Citrate (Fentanyl 2ml Vial) 100 mcg 1X ONCE 10/05/20 07:00 10/05/20 07:01 DC 10/05/20 07:08 100 MCG Metoclopramide HCl (Reglan Vial) 10 mg 1X ONCE 10/05/20 07:00 10/05/20 07:01 DC 10/05/20 07:08 10 MG Allergies: Allergies: Allergies Coded Allergies Type Severity Reaction Last Updated Verified No Known Drug Allergies 09/11/20 No Physical Exam: PE: Constitutional: Well developed, well nourished, no acute distress, non-toxic appearance. [] HENT: Normocephalic, atraumatic, bilateral external ears normal, oropharynx moist, no oral exudates, nose normal. [] Eyes: PERRLA, EOMI, conjunctiva normal, no discharge. [] Neck: Normal range of motion, no tenderness, supple, no stridor. [] Cardiovascular:Heart rate regular rhythm, no murmur [] Lungs & Thorax: Bilateral breath sounds clear to auscultation [] Abdomen: Bowel sounds normal, soft, no tenderness, no masses, no pulsatile masses. [] Skin: Warm, dry, no erythema, no rash. [] Back: No tenderness, no CVA tenderness. [] Extremities: No tenderness, no cyanosis, no clubbing, ROM intact, no edema. [] Neurologic: Alert and oriented X 3, normal motor function, normal sensory function, no focal deficits noted. [] Psychologic: Affect normal, judgement normal, mood normal. [] Current Patient Data: Labs: Laboratory Tests Test 10/05/20 05:20 White Blood Count 6.3 x10^3/uL (4.0-11.0) Red Blood Count 2.99 x10^6/uL (4.30-5.70) L Hemoglobin 8.7 g/dL (13.0-17.5) L Hematocrit 24.6 % (39.0-53.0) L Mean Corpuscular Volume 82 fL (79-100) Mean Corpuscular Hemoglobin 29 pg (25-35) Mean Corpuscular Hemoglobin Concent 35 g/dL (31-37) Red Cell Distribution Width 24.4 % (11.5-14.5) H Platelet Count 453 x10^3/uL (140-400) H Neutrophils (%) (Auto) 39 % (31-73) Lymphocytes (%) (Auto) 41 % (24-48) Monocytes (%) (Auto) 16 % (0-9) H Eosinophils (%) (Auto) 2 % (0-3) Basophils (%) (Auto) 2 % (0-3) Neutrophils # (Auto) 2.5 x10^3/uL (1.8-7.7) Lymphocytes # (Auto) 2.6 x10^3/uL (1.0-4.8) Monocytes # (Auto) 1.0 x10^3/uL (0.0-1.1) Eosinophils # (Auto) 0.1 x10^3/uL (0.0-0.7) Basophils # (Auto) 0.1 x10^3/uL (0.0-0.2) Laboratory Tests 10/05/20 05:20 Vital Signs: Vital Signs Date Time Temp Pulse Resp B/P (MAP) Pulse Ox O2 Delivery O2 Flow Rate FiO2 10/05/20 07:08 16 96 Room Air 10/05/20 06:20 98.2 79 130/63 (85) 98.2 EKG: EKG: [] Radiology/Procedures: Radiology/Procedures: [] Course & Med Decision Making: Course & Med Decision Making Pertinent Labs and Imaging studies reviewed. (See chart for details) Patient is a 25-year-old male who has been evaluated here frequently for sickle cell pain crisis. Patient was given pain medication in ER, he is not in aplastic crisis, patient will be discharged home with pain medication. Candelario Disclaimer: Candelario Disclaimer: This electronic medical record was generated, in whole or in part, using a voice recognition dictation system. Departure Departure Impression: Primary Impression: Sickle cell pain crisis Disposition: 01 DC HOME SELF CARE/HOMELESS Condition: IMPROVED Referrals: UNKNOWN PCP NAME (PCP) Follow up with your SICKLE CELL DOCTOR NEXT WEEK. Patient Instructions: Sickle Cell Pain Crisis Scripts Naproxen Sodium (ANAPROX DS) 550 Mg Tablet 1 TAB PO BID PRN for PAIN for 15 Days, #30 TAB 0 Refills Prov: BRYAN HOFFMAN DO 10/05/20 Hydrocodone Bit/Acetaminophen (HYDROCODONE-APAP 5-325 ) 1 Tab Tablet 1 TAB PO PRN Q6HRS PRN for PAIN, #12 TAB 0 Refills Prov: BRYAN HOFFMAN DO 10/05/20 BRYAN HOFFMAN DO Oct 05, 2020 07:26
[2020-10-05 07:27] LABS: CALCIUM 8.5 mg/dL (8.5-10.1); CREATININE 0.7 mg/dL (0.7-1.3); GFR 169.1
[2020-10-05 07:33] LABS: ALBUMIN 3.7 g/dL (3.4-5.0); TOTAL BILIRUBIN 1.2 mg/dL (0.2-1.0); TOTAL PROTEIN 7.4 g/dL (6.4-8.2)
[2020-10-05] MEDS ORDERED: KETOROLAC 30 MG/ML VIAL. IVP ONE (08:30)
[2020-10-05] MEDS ORDERED: NAPR-682 PO (09:56)
[2020-10-05] MEDS ORDERED: HYDR-2761 PO (09:56)
[2020-10-05 10:24] VITALS: BP 112/69
[2020-10-10] MEDS ORDERED: OXYC15TA3 PO (10:09)
[2020-10-10] MEDS ORDERED: LEVO750T5 PO (10:09)
== END 2020-10-05 10:31 | disposition home or self-care (01) ==
LOC: ER 06:20
DX: D57.00 Hb-SS disease with crisis, unspecified (principal); F17.200 Nicotine dependence, unspecified, uncomplicated
CPT/HCPCS: 36415; 80053; 85025; 85045; 96374; 96375; 99285; J1885; J2765; J3010

== ENCOUNTER 2020-10-26 23:01 | Emergency (ER) | payer BC, MEDICARE ==
[~2020-10-26] VITALS: Ht 175.3 cm; Wt 80.9 kg
[~2020-10-26 23:01] MED LIST changes: +HYDR-2761 PO; +LEVO750T5 PO; -POLY17PO28 PO; +POLY17PO52 PO
--- NOTE | 2020-10-26 23:40 | PHYS DOC ---
Past Medical History Past Medical History: Other Additional Past Medical Histor: sickle cell Past Surgical History: Other Additional Past Surgical Histo: L HIP BONE GRAFT Smoking Status: Former Smoker Alcohol Use: None Drug Use: Marijuana Adult General Chief Complaint Chief Complaint: PAIN CONTROL HPI HPI Patient is a 25 year old with past medical history of sickle cell anemia now presents emergency department complaining of new onset of pain. Patient states he has been having new onset of back and lower extremity pain as well as mild chest pain over the last 2 days which has been worsening. Patient states he is recently was placed on hydroxyurea for sickle cell anemia but is only been on it for a few days. 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 Does take hydrocodone at home intermittently. Denies any recent fever, chills, nausea, vomiting, dizziness or lightheadedness. Review of Systems Review of Systems Constitutional: Denies fever or chills [] Eyes: Denies change in visual acuity, redness, or eye pain [] HENT: Denies nasal congestion or sore throat [] Respiratory: Denies cough or shortness of breath [] Cardiovascular: No additional information not addressed in HPI [] GI: Denies abdominal pain, nausea, vomiting, bloody stools or diarrhea [] : Denies dysuria or hematuria [] Musculoskeletal: Denies back pain or joint pain [] Integument: Denies rash or skin lesions [] Neurologic: Denies headache, focal weakness or sensory changes [] Endocrine: Denies polyuria or polydipsia [] All other systems were reviewed and found to be within normal limits, except as documented in this note. Current Medications Current Medications Current Medications Medications (Trade) Dose Ordered Sig/[facility] Start Time Stop Time Status Last Admin Dose Admin Morphine Sulfate (Morphine Sulfate) 8 mg 1X ONCE 10/26/20 23:45 10/26/20 23:46 DC 10/27/20 00:02 8 MG Sodium Chloride 1,000 ml @ 1,000 mls/hr Q1H 10/26/20 23:45 10/27/20 00:44 DC 10/27/20 00:03 1,000 MLS/HR Allergies Allergies Allergies Coded Allergies Type Severity Reaction Last Updated Verified No Known Drug Allergies 10/06/20 No Physical Exam Physical Exam Constitutional: Well developed, well nourished, no acute distress, non-toxic appearance. [] HENT: Normocephalic, atraumatic, bilateral external ears normal, oropharynx moist, no oral exudates, nose normal. [] Eyes: PERRLA, EOMI, conjunctiva normal, no discharge. [] Neck: Normal range of motion, no tenderness, supple, no stridor. [] Cardiovascular:Heart rate regular rhythm, no murmur [] Lungs & Thorax: Bilateral breath sounds clear to auscultation [] Abdomen: Bowel sounds normal, soft, no tenderness, no masses, no pulsatile masses. [] Skin: Warm, dry, no erythema, no rash. [] Back: No tenderness, no CVA tenderness. [] Extremities: No tenderness, no cyanosis, no clubbing, ROM intact, no edema. [] Neurologic: Alert and oriented X 3, normal motor function, normal sensory function, no focal deficits noted. [] Psychologic: Affect normal, judgement normal, mood normal. [] Current Patient Data Vital Signs Vital Signs Date Time Temp Pulse Resp B/P (MAP) Pulse Ox O2 Delivery O2 Flow Rate FiO2 10/27/20 00:02 99 Room Air 10/26/20 23:15 98.0 70 16 111/75 (87) 98.0 Lab Values Laboratory Tests Test 10/26/20 23:55 White Blood Count 5.4 x10^3/uL (4.0-11.0) Red Blood Count 2.90 x10^6/uL (4.30-5.70) L Hemoglobin 8.5 g/dL (13.0-17.5) L Hematocrit 24.6 % (39.0-53.0) L Mean Corpuscular Volume 84 fL (79-100) Mean Corpuscular Hemoglobin 29 pg (25-35) Mean Corpuscular Hemoglobin Concent 35 g/dL (31-37) Red Cell Distribution Width 24.8 % (11.5-14.5) H Platelet Count 518 x10^3/uL (140-400) H Neutrophils (%) (Auto) % (31-73) Lymphocytes (%) (Auto) % (24-48) Monocytes (%) (Auto) % (0-9) Eosinophils (%) (Auto) % (0-3) Basophils (%) (Auto) % (0-3) Neutrophils # (Auto) x10^3/uL (1.8-7.7) Lymphocytes # (Auto) x10^3/uL (1.0-4.8) Monocytes # (Auto) x10^3/uL (0.0-1.1) Eosinophils # (Auto) x10^3/uL (0.0-0.7) Basophils # (Auto) x10^3/uL (0.0-0.2) Segmented Neutrophils % 19 % (35-66) L Lymphocytes % 69 % (24-48) H Monocytes % 9 % (0-10) Eosinophils % 1 % (0-5) Basophils % 2 % (0-3) Nucleated Red Blood Cells 4 Platelet Estimate Increased (ADEQUATE) Polychromasia Slight Hypochromasia Slight Poikilocytosis Marked Anisocytosis Mod Sickle Cells Few Target Cells Few Schistocytes Few RBC Morphology Bizarre Forms Few Absolute Reticulocyte Count 0.115 x10^6/uL (0.020-0.120) Percent Reticulocyte Count 4.0 % (0.5-2.3) H Immature Reticulocyte Fraction 0.68 (0.20-0.60) H Sodium Level 140 mmol/L (136-145) Potassium Level 3.8 mmol/L (3.5-5.1) Chloride Level 104 mmol/L (98-107) Carbon Dioxide Level 24 mmol/L (21-32) Anion Gap 12 (6-14) Blood Urea Nitrogen 8 mg/dL (8-26) Creatinine 0.7 mg/dL (0.7-1.3) Estimated GFR (Cockcroft-Gault) 169.1 Glucose Level 85 mg/dL (70-99) Calcium Level 8.6 mg/dL (8.5-10.1) Magnesium Level 2.4 mg/dL (1.8-2.4) Total Bilirubin 1.6 mg/dL (0.2-1.0) H Direct Bilirubin 0.4 mg/dL (0.0-0.2) H Aspartate Amino Transferase (AST) 29 U/L (15-37) Alanine Aminotransferase (ALT) 22 U/L (16-63) Alkaline Phosphatase 139 U/L (46-116) H Troponin I Quantitative < 0.017 ng/mL (0.000-0.055) Total Protein 7.2 g/dL (6.4-8.2) Albumin 3.7 g/dL (3.4-5.0) Laboratory Tests 10/26/20 23:55 Laboratory Tests 10/26/20 23:55 EKG EKG [] Radiology/Procedures Radiology/Procedures [] Course & Med Decision Making Course & Med Decision Making Pertinent Labs and Imaging studies reviewed. (See chart for details) 25-year-old male presented emergency department due to concern for sickle cell pain crisis. Will obtain labs, provide IV fluids and pain control and oxygen and reevaluate. Reviewed and unremarkable. Reticulocyte count within normal limits. At this time will discharge home Dragon Disclaimer Dragon Disclaimer This electronic medical record was generated, in whole or in part, using a voice recognition dictation system. Departure Departure Impression: Primary Impression: Sickle cell pain crisis Disposition: 01 DC HOME SELF CARE/HOMELESS Condition: GOOD Referrals: NON,STAFF (PCP) Patient Instructions: Sickle Cell Pain Crisis Additional Instructions: EMERGENCY DEPARTMENT GENERAL DISCHARGE INSTRUCTIONS Thank you for coming to [facility] Emergency Department (ED) today and trusting us with you care. We trust that you had a positive experience in our Emergency Department. If you wish to speak to the department management, you may call the Director at [phone]. YOUR FOLLOW UP INSTRUCTIONS ARE FOLLOWS: 1. Do you have a private Doctor? If you do not have a private doctor, please ask for a resource list of physicians or clinics that may be able to assist you with follow up care. 2. The Emergency Physicain has interpreted your x-rays. The X-Ray specialist will also review them. If there is a change in the findings, you will be notified in 48 hours when at all possible. 3. A lab test or culture has been done, your results will be reviewed and you will be notified if you need a change in treatment. ADDITIONAL INSTRUCTIONS AND INFORMATION: 1. Your care today has been supervised by a physician who is specially trained in emergency care. Many problems require more than one evaluation for a complete diagnosis and treatment. We recommend that you schedule your follow up appointment as recommended to ensure complete treatment of you illness or injury. If you are unable to obtain follow up care and continue to have a problem, or if your condition worsens, we recommend that you return to the ED. 2. We are not able to safely determine your condition over the phone nor are we able to give sound medical advice over the phone. For these safety reasons, if you call for medical advice we will ask you to come to the ED for further evaluation. 3. If you have any questions regarding these discharge instructions please call the ED at [phone]. SAFETY INFORMATION: In the interest of safety, wellness, and injury prevention; we encourage you to wear your sealbelt, if you smoke; quite smoking, and we encourage family to use a protective helmet for bicycling and other sporting events that present an increased risk for head injury. IF YOUR SYMPTOMS WORSEN OR NEW SYMPTOMS DEVELOP, OR YOU HAVE CONCERNS ABOUT YOUR CONDITION; OR IF YOUR CONDITION WORSENS WHILE YOU ARE WAITING FOR YOUR FOLLOW UP APPOINTMENT; EITHER CONTACT YOUR PRIMARY CARE DOCTOR, THE PHYSICIAN WHOSE NAME AND NUMBER YOU WERE GIVEN, OR RETURN TO THE ED IMMEDIATELY. OTONIEL SOLIS MD Oct 26, 2020 23:40
[2020-10-26] MEDS ORDERED: MORPHINE SULFATE 10 MG/ML VIAL. IV ONE (23:45)
[2020-10-26] MEDS ORDERED: IV NORMAL SALINE 1000ML BAG 1,000 ML IV SCH (23:45)
--- NOTE | 2020-10-26 23:48 | EKG ---
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
[2020-10-27 00:07] LABS: HEMATOCRIT 24.6 % (39.0-53.0); HEMOGLOBIN 8.5 g/dL (13.0-17.5); MEAN CORPUSCULAR HEMOGLOBIN 29 pg (25-35); MEAN CORPUSCULAR HGB CONC 35 g/dL (31-37); MEAN CORPUSCULAR VOLUME 84 fL (79-100); PLATELET COUNT 518 x10^3/uL (140-400); RED BLOOD COUNT 2.94 x10^6/uL (4.30-5.70); RED CELL DISTRIBUTION WIDTH 24.8 % (11.5-14.5); WHITE BLOOD COUNT 5.4 x10^3/uL (4.0-11.0)
[2020-10-27 00:15] LABS: CALCIUM 8.6 mg/dL (8.5-10.1); CREATININE 0.7 mg/dL (0.7-1.3); GFR 169.1; POTASSIUM 3.8 mmol/L (3.5-5.1)
[2020-10-27 00:21] LABS: ALBUMIN 3.7 g/dL (3.4-5.0); DIRECT BILIRUBIN 0.4 mg/dL (0.0-0.2); MAGNESIUM 2.4 mg/dL (1.8-2.4); TOTAL BILIRUBIN 1.6 mg/dL (0.2-1.0); TOTAL PROTEIN 7.2 g/dL (6.4-8.2)
[2020-10-27 00:30] LABS: % BASOS 2 % (0-3); % EOS 1 % (0-5); % LYMPHS 69 % (24-48); % MONOS 9 % (0-10); % SEGS 19 % (35-66); ANISOCYTOSIS MOD; HYPOCHROMIA SLIGHT; NUCLEATED RBC 4; PLT ESTIMATE INCREASED (ADEQUATE); POLYCHROMASIA SLIGHT; TARGET CELLS FEW
[2020-10-27 00:31] LABS: BIZZARE CELLS FEW; POIKILOCYTOSIS MARKED; SCHISTOCYTES FEW; SICKLE CELLS FEW
--- NOTE | 2020-10-27 00:31 | RAD ---
XR CHEST 1V INDICATION: cough COMPARISON STUDY: 10/08/2019. FINDINGS: Lungs: Normal lung volume. Improving right basilar opacities. The tracheobronchial tree and hilar str uctures are normal. Pleura: No pleural effusion or pneumothorax. Heart and Mediastinum: The cardiomediastinal silhouette is normal. The great vessels of the thorax ar e normal. IMPRESSION: Improving right basilar opacities. Electronically signed by: Hector Jones MD (10/27/2020 12:28 AM) [facility]
[2020-10-27 02:35] VITALS: BP 113/63
[2020-10-27 02:50] LABS: BILIRUBIN,URINE NEGATIVE (NEG); CLARITY,URINE CLEAR; COLOR,URINE YELLOW; NITRITE,URINE NEGATIVE (NEG); PROTEIN,URINE NEGATIVE (NEG-TRACE); UROBILINOGEN,URINE 0.2 mg/dL (0.2 mg/dL)
[2020-10-27 02:55] LABS: BACTERIA,URINE 0 /HPF (0-FEW); RBC,URINE 0 /HPF (0-2); WBC,URINE 0 /HPF (0-4)
== END 2020-10-27 02:45 | disposition home or self-care (01) ==
LOC: ER 23:01
DX: D57.00 Hb-SS disease with crisis, unspecified (principal); Z87.891 Personal history of nicotine dependence
CPT/HCPCS: 36415; 71045; 80048; 80076; 81001; 83735; 84484; 85007; 85025; 85045; 93005; 96361; 96374; 99285; J2270; J7030

== ENCOUNTER 2020-11-04 07:44 | Emergency (ER) | payer BC, MEDICARE ==
[~2020-11-04] VITALS: Ht 175.3 cm; Wt 82.2 kg
[2020-11-04 08:30] VITALS: BP 119/71
--- NOTE | 2020-11-04 08:50 | PHYS DOC ---
Past Medical History Past Medical History: Other Additional Past Medical Histor: sickle cell Past Surgical History: Other Additional Past Surgical Histo: L HIP BONE GRAFT Smoking Status: Former Smoker Additional Information: quit smoking 2 months ago Alcohol Use: None Drug Use: Marijuana General Adult EDM: Chief Complaint: PAIN CONTROL HPI: HPI: 22-year-old male past medical history of sickle cell disease, presents to the ED with complaints of bilateral knee pain stating "pain goes from knees all the way down to the heels," and bilateral upper and lower back pain x 3 days, stating "it's my sickle crisis again." Reports he's out of his pain medication (oxycodone) for 1 day and sees his cobol developer, Dr. Alvaro Tyler at on . Reports he is compliant with his hydroxyurea. Reports no associated fever, chills, chest pain, dyspnea, midline back pain, saddle anesthesia, urine or bowel retention or incontinence, swollen joint deformity/rash/swelling, headache or neck stiffness. EMR reviewed-pt well known to myself, last in ed 10/26/20 for crisis pain. Review of Systems: Review of Systems: Constitutional: Denies fever or chills. [] Eyes: Denies change in visual acuity. [] HENT: Denies nasal congestion or sore throat. [] Respiratory: Denies cough or shortness of breath or hemoptysis Cardiovascular: Denies chest pain or edema. [] GI: Denies abdominal pain, nausea, vomiting, bloody stools or diarrhea. [] : Denies dysuria or hematuria Musculoskeletal: Denies midline back pain or joint deformity Integument: Denies rash or diaphoresis Neurologic: Denies headache, focal weakness or sensory changes. [] Endocrine: Denies polyuria or polydipsia. [] Lymphatic: Denies swollen glands. [] Psychiatric: Denies depression or anxiety. [] Heart Score: C/O Chest Pain: No Risk Factors: Risk Factors: DM, Current or recent (<one month) smoker, HTN, HLP, family history of CAD, obesity. Risk Scores: Score 0 - 3: 2.5% MACE over next 6 weeks - Discharge Home Score 4 - 6: 20.3% MACE over next 6 weeks - Admit for Clinical Observation Score 7 - 10: 72.7% MACE over next 6 weeks - Early Invasive Strategies Allergies: Allergies: Allergies Coded Allergies Type Severity Reaction Last Updated Verified No Known Drug Allergies 11/04/20 No Physical Exam: PE: Constitutional: Well developed, well nourished, no acute distress, non-toxic appearance, pt calm/resting, in no distress HENT: Normocephalic, atraumatic, Eyes: EOMI, conjunctiva normal, no discharge. Neck: Normal range of motion, supple, Cardiovascular: S1/2 present, regular rhythm Lungs & Thorax: Speaking in full sentences, bilateral equal chest rise, no tachypnea or increased work of breathing Abdomen: soft, no tenderness, Skin: Warm, dry, no erythema, no rash. [] Back: No midline tenderness/step offs or deformities, no CVA tenderness. [] Extremities: No producible tenderness, no cyanosis, no lower extremity edema, scar over medial left ankle Neurologic: Alert and oriented X 3, normal motor function, normal sensory function, no focal deficits noted. [] Psychologic: Affect normal, judgement normal, mood normal. [] Current Patient Data: Vital Signs: Vital Signs Date Time Temp Pulse Resp B/P (MAP) Pulse Ox O2 Delivery O2 Flow Rate FiO2 11/04/20 07:53 98.5 53 16 133/61 (85) 96 Room Air 98.5 EKG: EKG: [] Radiology/Procedures: Radiology/Procedures: [] IMAGING REPORT Signed PATIENT: RASHAUN CHURCH EACCOUNT: [id number] : 1995 LOCATION: ER AGE: 25 SEX: M EXAM STATUS: REG ER ORD. PHYSICIAN: ERNIE PERDOMO DO REASON: back pain PROCEDURE: CHEST PA & LATERAL XR CHEST 2V CLINICAL INDICATIONS: Follow-up of lung infiltrate on the right side COMPARISON: October 27, 2020. Findings: There has been improvement of the right lower lobe interstitial lung infiltrate. No pleural effusion or pneumothorax is seen. The heart size, pulmonary vasculature, mediastinum and both tamia are stable. The osseous structures appear intact. IMPRESSION: Improving right lower lobe lung infiltrate. Electronically signed by: Brittni Morataya MD (11/04/2020 8:52 AM) [id number] DICTATED and SIGNED BY: BRITTNI MORATAYA MD DATE: 11/04/20 [id number] 0 Course & Med Decision Making: Course & Med Decision Making Pertinent Labs and Imaging studies reviewed. (See chart for details) Concern for joint pain in the setting of sickle cell disease, requesting fentanyl. Pt told rn he would "just go to [facility]." Patient refused to give me time to review his labs, imaging and ED [id number] would not wait for me to speak to him (I was doing this after rn informed me he wished to leave). I went into pts' room and he was gone. Patient is well-known to this facility. Does not appear to be in any acute distress. Does have an IV infusion clinic w/his cobol developer, Dr. Isabel. Pt with decision-making capacity and was not medically cleared against life or limb threatening diseases, was not discharged by myself. Candelario Disclaimer: Candelario Disclaimer: This electronic medical record was generated, in whole or in part, using a voice recognition dictation system. Departure Departure Impression: Primary Impression: Sickle cell disease Additional Impression: Bradycardia Disposition: 07 AMA/ELOPED/LWBS Condition: STABLE Referrals: NON,STAFF (PCP) ERNIE PERDOMO DO Nov 04, 2020 08:49
--- NOTE | 2020-11-04 08:54 | RAD ---
XR CHEST 2V CLINICAL INDICATIONS: Follow-up of lung infiltrate on the right side COMPARISON: October 27, 2020. Findings: There has been improvement of the right lower lobe interstitial lung infiltrate. No pleural effusion or pneumothorax is seen. The heart size, pulmonary vasculature, mediastinum and both tamia a re stable. The osseous structures appear intact. IMPRESSION: Improving right lower lobe lung infiltrate. Electronically signed by: Daniel Morataya MD (11/04/2020 8:52 AM) [id number]
[2020-11-04 08:57] LABS: BASO % 1 % (0-3); EOS # 0.1 x10^3/uL (0.0-0.7); EOS % 2 % (0-3); HEMATOCRIT 26.2 % (39.0-53.0); HEMOGLOBIN 9.1 g/dL (13.0-17.5); LYMPH # 2.6 x10^3/uL (1.0-4.8); LYMPH % 45 % (24-48); MEAN CORPUSCULAR HEMOGLOBIN 29 pg (25-35); MEAN CORPUSCULAR HGB CONC 35 g/dL (31-37); MEAN CORPUSCULAR VOLUME 84 fL (79-100); MONO # 1.1 x10^3/uL (0.0-1.1); MONO % 18 % (0-9); NEUT % 34 % (31-73); PLATELET COUNT 295 x10^3/uL (140-400); RED BLOOD COUNT 3.12 x10^6/uL (4.30-5.70); RED CELL DISTRIBUTION WIDTH 24.9 % (11.5-14.5); WHITE BLOOD COUNT 5.8 x10^3/uL (4.0-11.0)
[2020-11-04] MEDS ORDERED: oxyCODONE/APAP 7.5/325 1 TAB TABLET PO ONE (09:00)
[2020-11-04] MEDS ORDERED: KETOROLAC 15 MG/ML VIAL. IM ONE (09:00)
[2020-11-04 09:05] LABS: CALCIUM 8.3 mg/dL (8.5-10.1); CREATININE 0.6 mg/dL (0.7-1.3); POTASSIUM 3.7 mmol/L (3.5-5.1)
[2020-11-04 09:11] LABS: ALBUMIN 3.5 g/dL (3.4-5.0); C-REACTIVE PROTEIN 8.6 mg/L (0-3.3); TOTAL BILIRUBIN 1.6 mg/dL (0.2-1.0); TOTAL PROTEIN 7.1 g/dL (6.4-8.2)
[2020-11-04] MEDS ORDERED: fentaNYL PF VIAL 100 MCG/2 ML VIAL IM ONE (09:15)
[2020-11-04 10:23] LABS: PLT ESTIMATE ADEQUATE (ADEQUATE)
[2020-11-04 10:24] LABS: ANISOCYTOSIS PRESENT; POIKILOCYTOSIS PRESENT; SICKLE CELLS PRESENT; TARGET CELLS PRESENT
== END 2020-11-04 10:05 | disposition left against medical advice (07) ==
LOC: ER 07:44
DX: D57.1 Sickle-cell disease without crisis (principal); R00.1 Bradycardia, unspecified; R91.8 Other nonspecific abnormal finding of lung field; M54.5 Low back pain; M25.561 Pain in right knee; M25.562 Pain in left knee; F12.90 Cannabis use, unspecified, uncomplicated; Z98.890 Other specified postprocedural states; Z87.891 Personal history of nicotine dependence
CPT/HCPCS: 36415; 71046; 80053; 85025; 86140; 99284

== ENCOUNTER 2020-11-12 14:35 | Emergency (ER) | payer BC, MEDICARE ==
[~2020-11-12] VITALS: Ht 175.3 cm; Wt 77.2 kg
--- NOTE | 2020-11-12 15:23 | PHYS DOC ---
Past Medical History Past Medical History: Sickle Cell Disease Additional Past Medical Histor: sickle cell Past Surgical History: Other Additional Past Surgical Histo: L HIP BONE GRAFT Smoking Status: Former Smoker Alcohol Use: None Drug Use: Marijuana General Adult EDM: Chief Complaint: PAIN CONTROL HPI: HPI: Patient is a 25 year old male with history of sickle cell disease presented to ER due to bilateral lower extremity pain, knee pain, low back pain. Patient said he has been sickle cell pain crisis. Patient has been cared by product marketing consultant at sickle cell clinic, has been taking oxycodone for pain and sickle cell medication. Patient claimed that he been compliant with his medication. Patient has been in and now at this ER numerous times for pain control. Review of Systems: Review of Systems: Constitutional: Denies fever or chills. [] Eyes: Denies change in visual acuity. [] HENT: Denies nasal congestion or sore throat. [] Respiratory: Denies cough or shortness of breath. [] Cardiovascular: Denies chest pain or edema. [] GI: Denies abdominal pain, nausea, vomiting, bloody stools or diarrhea. [] : Denies dysuria. [] Musculoskeletal: Positive for low back pain and joint pain. Integument: Denies rash. [] Neurologic: Denies headache, focal weakness or sensory changes. [] Endocrine: Denies polyuria or polydipsia. [] Lymphatic: Denies swollen glands. [] Psychiatric: Denies depression or anxiety. [] Heart Score: C/O Chest Pain: N/A Risk Factors: Risk Factors: DM, Current or recent (<one month) smoker, HTN, HLP, family history of CAD, obesity. Risk Scores: Score 0 - 3: 2.5% MACE over next 6 weeks - Discharge Home Score 4 - 6: 20.3% MACE over next 6 weeks - Admit for Clinical Observation Score 7 - 10: 72.7% MACE over next 6 weeks - Early Invasive Strategies Current Medications: Current Medications Medications (Trade) Dose Ordered Sig/Glenis Start Time Stop Time Status Last Admin Dose Admin Ketorolac Tromethamine (Toradol 30mg Vial) 30 mg 1X ONCE 11/12/20 15:30 11/12/20 15:31 UNV Sodium Chloride 1,000 ml @ 1,000 mls/hr 1X ONCE 11/12/20 15:30 11/12/20 16:29 UNV Allergies: Allergies: Allergies Coded Allergies Type Severity Reaction Last Updated Verified No Known Drug Allergies 11/04/20 No Physical Exam: PE: Constitutional: Well developed, well nourished, no acute distress, non-toxic appearance. [] HENT: Normocephalic, atraumatic, bilateral external ears normal, oropharynx moist, no oral exudates, nose normal. [] Eyes: PERRLA, EOMI, conjunctiva normal, no discharge. [] Neck: Normal range of motion, no tenderness, supple, no stridor. [] Cardiovascular:Heart rate regular rhythm, no murmur [] Lungs & Thorax: Bilateral breath sounds clear to auscultation [] Abdomen: Bowel sounds normal, soft, no tenderness, no masses, no pulsatile masses. [] Skin: Warm, dry, no erythema, no rash. [] Back: No tenderness, no CVA tenderness. [] Extremities: No tenderness, no cyanosis, no clubbing, ROM intact, no edema. [] Neurologic: Alert and oriented X 3, normal motor function, normal sensory function, no focal deficits noted. [] Psychologic: Affect normal, judgement normal, mood normal. [] Current Patient Data: Labs: Laboratory Tests Test 11/12/20 15:45 White Blood Count 11.8 x10^3/uL Red Blood Count 3.70 x10^6/uL Hemoglobin 10.5 g/dL Hematocrit 29.7 % Mean Corpuscular Volume 81 fL Mean Corpuscular Hemoglobin 29 pg Mean Corpuscular Hemoglobin Concent 36 g/dL Red Cell Distribution Width 24.8 % Platelet Count 379 x10^3/uL Neutrophils (%) (Auto) 69 % Lymphocytes (%) (Auto) 16 % Monocytes (%) (Auto) 14 % Eosinophils (%) (Auto) 1 % Basophils (%) (Auto) 1 % Neutrophils # (Auto) 8.1 x10^3/uL Lymphocytes # (Auto) 1.9 x10^3/uL Monocytes # (Auto) 1.7 x10^3/uL Eosinophils # (Auto) 0.1 x10^3/uL Basophils # (Auto) 0.1 x10^3/uL Platelet Estimate Pending Absolute Reticulocyte Count 0.103 x10^6/uL Percent Reticulocyte Count 2.8 % Immature Reticulocyte Fraction 0.65 Sodium Level 133 mmol/L Potassium Level 4.7 mmol/L Chloride Level 97 mmol/L Carbon Dioxide Level 26 mmol/L Anion Gap 10 Blood Urea Nitrogen 4 mg/dL Creatinine 0.7 mg/dL Estimated GFR (Cockcroft-Gault) 169.1 BUN/Creatinine Ratio 6 Glucose Level 107 mg/dL Calcium Level 9.1 mg/dL Magnesium Level 2.1 mg/dL Total Bilirubin 3.2 mg/dL Aspartate Amino Transf (AST/SGOT) 81 U/L Alanine Aminotransferase (ALT/SGPT) 80 U/L Alkaline Phosphatase 160 U/L Total Protein 8.6 g/dL Albumin 4.6 g/dL Albumin/Globulin Ratio 1.2 Current Medications Medications (Trade) Dose Ordered Sig/Glenis Route PRN Reason Start Time Stop Time Status Last Admin Dose Admin Ketorolac Tromethamine (Toradol 30mg Vial) 30 mg 1X ONCE IVP 11/12/20 15:30 11/12/20 15:31 DC 11/12/20 15:48 Sodium Chloride 1,000 ml @ 1,000 mls/hr 1X ONCE IV 11/12/20 15:30 11/12/20 16:29 DC 11/12/20 15:49 Morphine Sulfate (Morphine Sulfate) 4 mg 1X ONCE IV 11/12/20 17:15 11/12/20 17:16 DC 11/12/20 17:22 Vital Signs: Vital Signs Date Time Temp Pulse Resp B/P (MAP) Pulse Ox O2 Delivery O2 Flow Rate FiO2 11/12/20 14:50 97.3 103 24 132/72 (92) 96 Room Air 97.3 EKG: EKG: [] Radiology/Procedures: Radiology/Procedures: [] Course & Med Decision Making: Course & Med Decision Making Pertinent Labs and Imaging studies reviewed. (See chart for details) Patient is a 24-year-old male with sickle cell pain crisis, patient with given pain medication in the ER, he felt much better. Patient is not in aplastic crisis. Patient will be discharged home, he will need to follow-up with a sickle cell doctor at for outpatient treatment. Christinon Disclaimer: Christinon Disclaimer: This electronic medical record was generated, in whole or in part, using a voice recognition dictation system. Departure Departure Impression: Primary Impression: Sickle cell pain crisis Additional Impression: Chronic pain syndrome Disposition: 01 DC HOME SELF CARE/HOMELESS Condition: IMPROVED Referrals: NO PCP (PCP) Follow-up with your sickle cell doctor at [facility] this week. Patient Instructions: Chronic Back Pain, Sickle Cell Pain Crisis Additional Instructions: Thank you for visiting our Emergency Department. We appreciate you trusting us with your care. If any additional problems come up don't hesitate to return to visit us. Please follow up with your primary care provider so they can plan additional care if needed and know about the problem that you had. If symptoms worsen come back to the Emergency Department. Any concerning symptoms that start such as chest pain, shortness of air, weakness or numbness on one side of the body, running high fevers or any other concerning symptoms return to the ER. BRYAN HOFFMAN DO Nov 12, 2020 15:23
[2020-11-12] MEDS ORDERED: KETOROLAC 30 MG/ML VIAL. IVP ONE (15:30)
[2020-11-12] MEDS ORDERED: IV NORMAL SALINE 1000ML BAG 1,000 ML IV ONE (15:30)
[2020-11-12 16:00] LABS: BASO # 0.1 x10^3/uL (0.0-0.2); BASO % 1 % (0-3); EOS # 0.1 x10^3/uL (0.0-0.7); EOS % 1 % (0-3); HEMATOCRIT 29.7 % (39.0-53.0); HEMOGLOBIN 10.5 g/dL (13.0-17.5); LYMPH # 1.9 x10^3/uL (1.0-4.8); LYMPH % 16 % (24-48); MEAN CORPUSCULAR HEMOGLOBIN 29 pg (25-35); MEAN CORPUSCULAR HGB CONC 36 g/dL (31-37); MEAN CORPUSCULAR VOLUME 81 fL (79-100); MONO # 1.7 x10^3/uL (0.0-1.1); MONO % 14 % (0-9); NEUT # 8.1 x10^3/uL (1.8-7.7); NEUT % 69 % (31-73); PLATELET COUNT 379 x10^3/uL (140-400); RED BLOOD COUNT 3.66 x10^6/uL (4.30-5.70); RED CELL DISTRIBUTION WIDTH 24.8 % (11.5-14.5); WHITE BLOOD COUNT 11.8 x10^3/uL (4.0-11.0)
[2020-11-12 16:12] LABS: CALCIUM 9.1 mg/dL (8.5-10.1); CREATININE 0.7 mg/dL (0.7-1.3); GFR 169.1; POTASSIUM 4.7 mmol/L (3.5-5.1)
[2020-11-12 16:17] LABS: ALBUMIN 4.6 g/dL (3.4-5.0); ALBUMIN/GLOBULIN RATIO 1.2 (1.0-1.7); MAGNESIUM 2.1 mg/dL (1.8-2.4); TOTAL BILIRUBIN 3.2 mg/dL (0.2-1.0); TOTAL PROTEIN 8.6 g/dL (6.4-8.2)
[2020-11-12 17:09] LABS: PLT ESTIMATE ADEQUATE (ADEQUATE)
[2020-11-12 17:10] LABS: SICKLE CELLS FEW
[2020-11-12] MEDS ORDERED: MORPHINE SULFATE 4 MG/ML VIAL. IV ONE (17:15)
[2020-11-12 17:20] VITALS: BP 121/82
[2020-11-12 17:35] LABS: ANISOCYTOSIS MOD; TARGET CELLS MOD
[2020-11-12 17:37] LABS: POIKILOCYTOSIS MOD; POLYCHROMASIA SLIGHT
[2020-11-12 17:44] LABS: SCHISTOCYTES FEW
== END 2020-11-12 17:42 | disposition home or self-care (01) ==
LOC: ER 14:35
DX: D57.00 Hb-SS disease with crisis, unspecified (principal); G89.4 Chronic pain syndrome; M54.5 Low back pain; M25.561 Pain in right knee; M25.562 Pain in left knee; D57.1 Sickle-cell disease without crisis; F12.90 Cannabis use, unspecified, uncomplicated; Z87.891 Personal history of nicotine dependence; Z98.890 Other specified postprocedural states
CPT/HCPCS: 36415; 80053; 83735; 85025; 85045; 96361; 96374; 96375; 99285; J1885; J2270; J7030

== ENCOUNTER 2020-12-19 19:03 | Emergency (ER) | payer BC, MEDICARE ==
[~2020-12-19] VITALS: Ht 177.8 cm; Wt 90.0 kg
[~2020-12-19 19:03] MED LIST changes: -LIDO30CR TP; +LIDO30CR2 TP
[2020-12-19 19:16] VITALS: BP 112/56
--- NOTE | 2020-12-19 20:43 | RAD ---
Exam: Left foot 3 views INDICATION: Pain TECHNIQUE: Frontal, lateral oblique views of the left foot Comparisons: None FINDINGS: Bone mineralization is normal. No acute or healed fractures. Soft tissues are unremarkable. Joint spa edmar are well-maintained. IMPRESSION: No acute osseous abnormality. Electronically signed by: Man Lopez MD (12/19/2020 8:40 PM) SWEETIE
--- NOTE | 2020-12-19 20:58 | PHYS DOC ---
Past Medical History Past Medical History: Sickle Cell Disease Additional Past Medical Histor: sickle cell Past Surgical History: Other Additional Past Surgical Histo: L HIP BONE GRAFT Smoking Status: Never Smoker Alcohol Use: Occasionally Drug Use: Marijuana General Adult EDM: Chief Complaint: LOWER EXT PAIN HPI: HPI: Patient is a 25 year old male with history of sickle cell who presents to the ED today requesting recheck his left foot. Patient is complaining of 8 out of 10 left foot pain that began today while working at [employer]. Patient denies any known injury. Describes the pain as sharp and intermittent worse on weightbearing especially at work. He states he has history of sickle cell with chronic bilateral lower extremity pain and has oxycodone at home for this. He states he does not want to be evaluated for his sickle cell. He is requesting a note for work for 3 days. Review of Systems: Review of Systems: Constitutional: Denies fever or chills. [] Musculoskeletal: Reports chronic bilateral left lower extremity pain from sickle cell as well as new pain on the left foot denies back pain Integument: Denies rash. [] Neurologic: Denies headache, focal weakness or sensory changes. [] Endocrine: Denies polyuria or polydipsia. [] Lymphatic: Denies swollen glands. [] Psychiatric: Denies depression or anxiety. [] Heart Score: C/O Chest Pain: N/A Risk Factors: Risk Factors: DM, Current or recent (<one month) smoker, HTN, HLP, family history of CAD, obesity. Risk Scores: Score 0 - 3: 2.5% MACE over next 6 weeks - Discharge Home Score 4 - 6: 20.3% MACE over next 6 weeks - Admit for Clinical Observation Score 7 - 10: 72.7% MACE over next 6 weeks - Early Invasive Strategies Allergies: Allergies: Allergies Coded Allergies Type Severity Reaction Last Updated Verified No Known Drug Allergies 11/04/20 No Physical Exam: PE: Constitutional: Well developed, well nourished, no acute distress, non-toxic appearance. [] HENT: Normocephalic, atraumatic, bilateral external ears normal, oropharynx moist, no oral exudates, nose normal. [] Eyes: PERRLA, EOMI, conjunctiva normal, no discharge. [] Neck: Normal range of motion, no tenderness, supple, no stridor. [] Cardiovascular:Heart rate regular rhythm, no murmur [] Lungs & Thorax: Bilateral breath sounds clear to auscultation [] Abdomen: Bowel sounds normal, soft, no tenderness, no masses, no pulsatile masses. [] Skin: Warm, dry, no erythema, no rash. [] Back: No tenderness, no CVA tenderness. [] Extremities: No tenderness, no cyanosis, no clubbing, ROM intact, no edema. [] Neurologic: Alert and oriented X 3, normal motor function, normal sensory function, no focal deficits noted. [] Psychologic: Affect normal, judgement normal, mood normal. [] Current Patient Data: Vital Signs: Vital Signs Date Time Temp Pulse Resp B/P (MAP) Pulse Ox O2 Delivery O2 Flow Rate FiO2 12/19/20 19:16 98.6 74 14 112/56 (74) 93 Room Air 98.6 EKG: EKG: [] Radiology/Procedures: Radiology/Procedures: []PROCEDURE: FOOT LEFT 3V Exam: Left foot 3 views INDICATION: Pain TECHNIQUE: Frontal, lateral oblique views of the left foot Comparisons: None FINDINGS: Bone mineralization is normal. No acute or healed fractures. Soft tissues are unremarkable. Joint spaces are well-maintained. IMPRESSION: No acute osseous abnormality. Electronically signed by: Man Duran MD (12/19/2020 8:40 PM) [facility] DICTATED and SIGNED BY: MAN DURAN MD DATE: 12/19/[id number] 0 Course & Med Decision Making: Course & Med Decision Making Pertinent Labs and Imaging studies reviewed. (See chart for details) This is a 25-year-old male patient presenting to the ED today with left foot pain that began today. Left foot x-rays are negative for any acute findings. Patient was given a note for work. He also has chronic bilateral lower extremity pain from sickle cell and decided he does not want to be evaluated for this today because he already has pain medicine at home. Provided Ortho for follow-up Candelario Disclaimer: Candelario Disclaimer: This electronic medical record was generated, in whole or in part, using a voice recognition dictation system. Departure Departure Impression: Primary Impression: Left foot pain Disposition: HOME / SELF CARE / HOMELESS Condition: STABLE Referrals: NO PCP (PCP) JOSE RAUL LEE MD follow up in 1 week if pain persist Patient Instructions: Joint Sprain Additional Instructions: You were seen for left foot pain, your left foot x-rays are negative for any acute findings. You can take your oxycodone for this pain as well. Follow-up with the provided orthopedic doctor in 1 to 2 weeks if pain persist ROMY MEDEL APRN Dec 19, 2020 20:58
[2021-01-27] MEDS ORDERED: OXYC10TA PO (04:00)
[2021-01-31] MEDS ORDERED: DOCU-153 PO (12:36)
[2021-01-31] MEDS ORDERED: OXYC10TA PO (12:36)
== END 2020-12-19 21:26 | disposition home or self-care (01) ==
LOC: ER 19:03
DX: M79.672 Pain in left foot (principal)
CPT/HCPCS: 73630; 99283

== ENCOUNTER 2020-12-30 00:21 | Emergency (ER) | payer BC, MEDICARE ==
[~2020-12-30] VITALS: Ht 175.3 cm; Wt 77.3 kg
[2020-12-30] MEDS ORDERED: IV NORMAL SALINE 1000ML BAG 1,000 ML IV ONE (00:45)
[2020-12-30 00:53] LABS: BASO # 0.2 x10^3/uL (0.0-0.2); BASO % 2 % (0-3); EOS # 0.2 x10^3/uL (0.0-0.7); EOS % 3 % (0-3); HEMATOCRIT 26.2 % (39.0-53.0); HEMOGLOBIN 9.5 g/dL (13.0-17.5); LYMPH # 3.7 x10^3/uL (1.0-4.8); LYMPH % 51 % (24-48); MEAN CORPUSCULAR HEMOGLOBIN 30 pg (25-35); MEAN CORPUSCULAR HGB CONC 36 g/dL (31-37); MEAN CORPUSCULAR VOLUME 82 fL (79-100); MONO # 0.8 x10^3/uL (0.0-1.1); MONO % 11 % (0-9); NEUT # 2.4 x10^3/uL (1.8-7.7); NEUT % 34 % (31-73); PLATELET COUNT 333 x10^3/uL (140-400); RED BLOOD COUNT 3.19 x10^6/uL (4.30-5.70); RED CELL DISTRIBUTION WIDTH 24.2 % (11.5-14.5); WHITE BLOOD COUNT 7.2 x10^3/uL (4.0-11.0)
[2020-12-30] MEDS ORDERED: MORPHINE SULFATE 4 MG/ML VIAL. IV ONE (01:00)
[2020-12-30] MEDS ORDERED: KETOROLAC 15 MG/ML VIAL. IVP ONE (01:00)
[2020-12-30 01:01] LABS: CALCIUM 8.8 mg/dL (8.5-10.1); CREATININE 0.9 mg/dL (0.7-1.3); GFR 126.5; POTASSIUM 4.2 mmol/L (3.5-5.1)
[2020-12-30 01:08] LABS: ALBUMIN 4.2 g/dL (3.4-5.0); ALBUMIN/GLOBULIN RATIO 1.4 (1.0-1.7); TOTAL BILIRUBIN 2.1 mg/dL (0.2-1.0); TOTAL PROTEIN 7.2 g/dL (6.4-8.2)
[2020-12-30] MEDS ORDERED: HYDROmorphone 2 MG/ML VIAL IVP ONE (01:30)
--- NOTE | 2020-12-30 02:05 | PHYS DOC ---
Past Medical History Past Medical History: Sickle Cell Disease Additional Past Medical Histor: sickle cell Past Surgical History: Other Additional Past Surgical Histo: L HIP BONE GRAFT Smoking Status: Current Some Day Smoker Alcohol Use: None Drug Use: Marijuana General Adult EDM: Chief Complaint: PAIN CONTROL HPI: HPI: Patient is a 25 year old [f__sex] who presents with [] Review of Systems: Review of Systems: Constitutional: Denies fever or chills. [] Eyes: Denies change in visual acuity. [] HENT: Denies nasal congestion or sore throat. [] Respiratory: Denies cough or shortness of breath. [] Cardiovascular: Denies chest pain or edema. [] GI: Denies abdominal pain, nausea, vomiting, bloody stools or diarrhea. [] : Denies dysuria. [] Musculoskeletal: Denies back pain or joint pain. [] Integument: Denies rash. [] Neurologic: Denies headache, focal weakness or sensory changes. [] Endocrine: Denies polyuria or polydipsia. [] Lymphatic: Denies swollen glands. [] Psychiatric: Denies depression or anxiety. [] Heart Score: Risk Factors: Risk Factors: DM, Current or recent (<one month) smoker, HTN, HLP, family history of CAD, obesity. Risk Scores: Score 0 - 3: 2.5% MACE over next 6 weeks - Discharge Home Score 4 - 6: 20.3% MACE over next 6 weeks - Admit for Clinical Observation Score 7 - 10: 72.7% MACE over next 6 weeks - Early Invasive Strategies Current Medications: Current Medications Medications (Trade) Dose Ordered Sig/[facility] Start Time Stop Time Status Last Admin Dose Admin Hydromorphone HCl (Dilaudid) 0.5 mg 1X ONCE 12/30/20 01:30 12/30/20 01:31 DC 12/30/20 01:25 0.5 MG Ketorolac Tromethamine (Toradol 15mg Vial) 15 mg 1X ONCE 12/30/20 01:00 12/30/20 01:01 DC 12/30/20 00:51 15 MG Morphine Sulfate (Morphine Sulfate) 4 mg 1X ONCE 12/30/20 01:00 12/30/20 01:01 DC 12/30/20 00:52 4 MG Oxycodone/ Acetaminophen (Percocet 10/325) 1 tab 1X ONCE 12/30/20 02:15 12/30/20 02:16 UNV Sodium Chloride 1,000 ml @ 1,000 mls/hr 1X ONCE 12/30/20 00:45 12/30/20 01:44 DC 12/30/20 00:43 1,000 MLS/HR Allergies: Allergies: Allergies Coded Allergies Type Severity Reaction Last Updated Verified No Known Drug Allergies 11/04/20 No Physical Exam: PE: Constitutional: Well developed, well nourished, no acute distress, non-toxic appearance. [] HENT: Normocephalic, atraumatic, bilateral external ears normal, oropharynx moist, no oral exudates, nose normal. [] Eyes: PERRLA, EOMI, conjunctiva normal, no discharge. [] Neck: Normal range of motion, no tenderness, supple, no stridor. [] Cardiovascular:Heart rate regular rhythm, no murmur [] Lungs & Thorax: Bilateral breath sounds clear to auscultation [] Abdomen: Bowel sounds normal, soft, no tenderness, no masses, no pulsatile masses. [] Skin: Warm, dry, no erythema, no rash. [] Back: No tenderness, no CVA tenderness. [] Extremities: No tenderness, no cyanosis, no clubbing, ROM intact, no edema. [] Neurologic: Alert and oriented X 3, normal motor function, normal sensory function, no focal deficits noted. [] Psychologic: Affect normal, judgement normal, mood normal. [] Current Patient Data: Labs: Laboratory Tests Test 12/30/20 00:39 White Blood Count 7.2 x10^3/uL (4.0-11.0) Red Blood Count 3.14 x10^6/uL (4.30-5.70) L Hemoglobin 9.5 g/dL (13.0-17.5) L Hematocrit 26.2 % (39.0-53.0) L Mean Corpuscular Volume 82 fL (79-100) Mean Corpuscular Hemoglobin 30 pg (25-35) Mean Corpuscular Hemoglobin Concent 36 g/dL (31-37) Red Cell Distribution Width 24.2 % (11.5-14.5) H Platelet Count 333 x10^3/uL (140-400) Neutrophils (%) (Auto) 34 % (31-73) Lymphocytes (%) (Auto) 51 % (24-48) H Monocytes (%) (Auto) 11 % (0-9) H Eosinophils (%) (Auto) 3 % (0-3) Basophils (%) (Auto) 2 % (0-3) Neutrophils # (Auto) 2.4 x10^3/uL (1.8-7.7) Lymphocytes # (Auto) 3.7 x10^3/uL (1.0-4.8) Monocytes # (Auto) 0.8 x10^3/uL (0.0-1.1) Eosinophils # (Auto) 0.2 x10^3/uL (0.0-0.7) Basophils # (Auto) 0.2 x10^3/uL (0.0-0.2) Platelet Estimate Pending Absolute Reticulocyte Count 0.140 x10^6/uL (0.020-0.120) Percent Reticulocyte Count 4.4 % (0.5-2.3) H Immature Reticulocyte Fraction 0.66 (0.20-0.60) H Sodium Level 143 mmol/L (136-145) Potassium Level 4.2 mmol/L (3.5-5.1) Chloride Level 106 mmol/L (98-107) Carbon Dioxide Level 29 mmol/L (21-32) Anion Gap 8 (6-14) Blood Urea Nitrogen 7 mg/dL (8-26) L Creatinine 0.9 mg/dL (0.7-1.3) Estimated GFR (Cockcroft-Gault) 126.5 BUN/Creatinine Ratio 8 (6-20) Glucose Level 94 mg/dL (70-99) Calcium Level 8.8 mg/dL (8.5-10.1) Magnesium Level 2.0 mg/dL (1.8-2.4) Total Bilirubin 2.1 mg/dL (0.2-1.0) H Aspartate Amino Transferase (AST) 39 U/L (15-37) H Alanine Aminotransferase (ALT) 23 U/L (16-63) Alkaline Phosphatase 111 U/L (46-116) Total Protein 7.2 g/dL (6.4-8.2) Albumin 4.2 g/dL (3.4-5.0) Albumin/Globulin Ratio 1.4 (1.0-1.7) Laboratory Tests 12/30/20 00:39 Laboratory Tests 12/30/20 00:39 Vital Signs: Vital Signs Date Time Temp Pulse Resp B/P (MAP) Pulse Ox O2 Delivery O2 Flow Rate FiO2 12/30/20 00:29 98.0 86 18 102/53 (69) 97 Room Air 98.0 EKG: EKG: [] Radiology/Procedures: Radiology/Procedures: [] Course & Med Decision Making: Course & Med Decision Making Pertinent Labs and Imaging studies reviewed. (See chart for details) [] Dragon Disclaimer: Dragon Disclaimer: This electronic medical record was generated, in whole or in part, using a voice recognition dictation system. Departure Departure Impression: Primary Impression: Sickle cell pain crisis Disposition: 01 HOME / SELF CARE / HOMELESS Condition: STABLE Referrals: NO PCP (PCP) Patient Instructions: Sickle Cell Pain Crisis, [id number] Additional Instructions: Please follow up closely with your doctor regarding further pain management. RC CARABALLO DO December 30, 2020 02:05
[2020-12-30] MEDS ORDERED: oxyCODONE/APAP 10/325 1 TAB TABLET PO ONE (02:30)
[2020-12-30 02:55] VITALS: BP 110/65
[2020-12-30 03:39] LABS: % EOS 1 % (0-5); % LYMPHS 52 % (24-48); % MONOS 8 % (0-10); % SEGS 39 % (35-66); ANISOCYTOSIS MOD; NUCLEATED RBC 5; PLT ESTIMATE ADEQUATE (ADEQUATE); POLYCHROMASIA MOD; SICKLE CELLS MOD
[2020-12-30 03:40] LABS: BURR CELLS FEW; OVALOCYTES FEW; SCHISTOCYTES OCC; TARGET CELLS FEW
== END 2020-12-30 03:06 | disposition home or self-care (01) ==
LOC: ER 00:21
DX: D57.00 Hb-SS disease with crisis, unspecified (principal); F17.200 Nicotine dependence, unspecified, uncomplicated
CPT/HCPCS: 36415; 80053; 83735; 85007; 85025; 85045; 96361; 96374; 96375; 99284; J1170; J1885; J2270; J7030

== ENCOUNTER 2020-12-30 22:11 | Emergency (ER) | payer BC, MEDICARE ==
[~2020-12-30] VITALS: Ht 180.3 cm; Wt 80.0 kg
[2020-12-31] MEDS ORDERED: HYDROmorphone 2 MG/ML VIAL IVP ONE ×3 (02:00→05:00)
[2020-12-31] MEDS ORDERED: IV NORMAL SALINE 1000ML BAG 1,000 ML IV ONE (02:00)
[2020-12-31 02:23] LABS: BASO # 0.1 x10^3/uL (0.0-0.2); BASO % 1 % (0-3); EOS # 0.2 x10^3/uL (0.0-0.7); EOS % 2 % (0-3); HEMATOCRIT 26.9 % (39.0-53.0); HEMOGLOBIN 9.5 g/dL (13.0-17.5); LYMPH # 3.3 x10^3/uL (1.0-4.8); LYMPH % 37 % (24-48); MEAN CORPUSCULAR HEMOGLOBIN 29 pg (25-35); MEAN CORPUSCULAR HGB CONC 35 g/dL (31-37); MEAN CORPUSCULAR VOLUME 82 fL (79-100); MONO # 0.9 x10^3/uL (0.0-1.1); MONO % 10 % (0-9); NEUT # 4.4 x10^3/uL (1.8-7.7); NEUT % 50 % (31-73); PLATELET COUNT 333 x10^3/uL (140-400); RED BLOOD COUNT 3.26 x10^6/uL (4.30-5.70); RED CELL DISTRIBUTION WIDTH 24.8 % (11.5-14.5); WHITE BLOOD COUNT 8.9 x10^3/uL (4.0-11.0)
[2020-12-31 02:34] LABS: CALCIUM 8.8 mg/dL (8.5-10.1); CREATININE 0.7 mg/dL (0.7-1.3); GFR 169.1; POTASSIUM 4.2 mmol/L (3.5-5.1)
[2020-12-31 02:39] LABS: ALBUMIN 4.4 g/dL (3.4-5.0); ALBUMIN/GLOBULIN RATIO 1.4 (1.0-1.7); TOTAL BILIRUBIN 2.3 mg/dL (0.2-1.0); TOTAL PROTEIN 7.5 g/dL (6.4-8.2)
[2020-12-31 03:16] LABS: PLT ESTIMATE ADEQUATE (ADEQUATE)
[2020-12-31 03:19] LABS: ANISOCYTOSIS SLIGHT; HYPOCHROMIA SLIGHT; POIKILOCYTOSIS MARKED; POLYCHROMASIA SLIGHT; SICKLE CELLS FEW; TARGET CELLS OCC
[2020-12-31 03:20] LABS: BIZZARE CELLS FEW; SCHISTOCYTES FEW
[2020-12-31 03:29] LABS: BILIRUBIN,URINE NEGATIVE (NEG); CLARITY,URINE CLEAR; COLOR,URINE YELLOW; NITRITE,URINE NEGATIVE (NEG); PROTEIN,URINE NEGATIVE (NEG-TRACE)
[2020-12-31 03:35] LABS: BACTERIA,URINE 0 /HPF (0-FEW); RBC,URINE 0 /HPF (0-2); WBC,URINE 0 /HPF (0-4)
--- NOTE | 2020-12-31 04:01 | RAD ---
EXAM: CHEST ONE VIEW. HISTORY: Chest pain, sickle cell disease. COMPARISON: 11/04/2020. FINDINGS: A frontal view of the chest is obtained. There is mild chronic scarring in the right base. There is no confluent infiltrate. There is no pneum othorax or pleural effusion. The heart is mildly enlarged. IMPRESSION: 1. Mild cardiomegaly. Electronically signed by: Mukesh Salas MD (12/31/2020 3:58 AM) [facility]
--- NOTE | 2020-12-31 04:32 | PHYS DOC ---
Past Medical History Past Medical History: Sickle Cell Disease Additional Past Medical Histor: sickle cell Past Surgical History: Other Additional Past Surgical Histo: L HIP BONE GRAFT Smoking Status: Current Some Day Smoker Alcohol Use: None Drug Use: Marijuana General Adult EDM: Chief Complaint: BACK PAIN - NO INJURY HPI: HPI: Patient is a 25-year-old male presenting for sickle cell pain. He has known sickle cell disease and is established at [facility] with hematology group. Has history of flares, reports most recent flare started approximately 1 week ago. He has been taking home narcotic pain medication as prescribed but reports in attempt to avoid ER visit, he has been taking increased frequency from q. 6 to every 4 hour intervals with minimal relief. States most of his pain is in his hips and knees, states he has had to be admitted in the past for uncontrolled pain. No fever, no chest pain or cough, no systemic signs or symptoms of ill ness, no recent sick contacts Review of Systems: Review of Systems: Fourteen body systems of review of systems have been reviewed. See HPI for pertinent positives and negative responses, other crouch all other systems are negative, non-pertinent or non-contributory Heart Score: C/O Chest Pain: No HEART Score for Chest Pain: HEART Score for Chest Pain Response (Comments) Value History Slighlty/Non-Suspicious 0 ECG Normal 0 Age < 45 0 Risk Factors 1 or 2 Risk Factors 1 Troponin < Normal Limit 0 Total 1 Risk Factors: Risk Factors: DM, Current or recent (<one month) smoker, HTN, HLP, family history of CAD, obesity. Risk Scores: Score 0 - 3: 2.5% MACE over next 6 weeks - Discharge Home Score 4 - 6: 20.3% MACE over next 6 weeks - Admit for Clinical Observation Score 7 - 10: 72.7% MACE over next 6 weeks - Early Invasive Strategies Current Medications: Current Medications Medications (Trade) Dose Ordered Sig/Glenis Start Time Stop Time Status Last Admin Dose Admin Hydromorphone HCl (Dilaudid) 1 mg 1X ONCE 12/31/20 03:30 12/31/20 03:31 DC 12/31/20 03:20 1 MG Sodium Chloride 1,000 ml @ 1,000 mls/hr 1X ONCE 12/31/20 02:00 12/31/20 02:59 DC 12/31/20 02:19 1,000 MLS/HR Allergies: Allergies: Allergies Coded Allergies Type Severity Reaction Last Updated Verified No Known Drug Allergies 11/04/20 No Physical Exam: PE: Constitutional: Well developed, well nourished, no acute distress, non-toxic appearance. HENT: Normocephalic, atraumatic, bilateral external ears normal, oropharynx moist, no oral exudates, nose normal. Eyes: PERRLA, EOMI, conjunctiva normal, no discharge. Neck: Normal range of motion, no tenderness, supple, no stridor. Cardiovascular: Heart rate regular, sinus rhythm, no murmurs rubs or gallops Lungs & Thorax: Bilateral breath sounds clear to auscultation Abdomen: Bowel sounds normal, soft, no tenderness, no masses, no pulsatile masses. Nonsurgical abdomen, no peritoneal signs Skin: Warm, dry, no erythema, no rash. Back: No tenderness, no CVA tenderness. Extremities: No tenderness, no cyanosis, no clubbing, ROM intact, no edema. Neurologic: Alert and oriented X 3, grossly normal motor & sensory function, no focal deficits noted. Psychologic: Affect normal, judgement normal, mood normal. Current Patient Data: Labs: Laboratory Tests Test 12/31/20 02:10 12/31/20 03:20 White Blood Count 8.9 x10^3/uL (4.0-11.0) Red Blood Count 3.16 x10^6/uL (4.30-5.70) L Hemoglobin 9.5 g/dL (13.0-17.5) L Hematocrit 26.9 % (39.0-53.0) L Mean Corpuscular Volume 82 fL (79-100) Mean Corpuscular Hemoglobin 29 pg (25-35) Mean Corpuscular Hemoglobin Concent 35 g/dL (31-37) Red Cell Distribution Width 24.8 % (11.5-14.5) H Platelet Count 333 x10^3/uL (140-400) Neutrophils (%) (Auto) 50 % (31-73) Lymphocytes (%) (Auto) 37 % (24-48) Monocytes (%) (Auto) 10 % (0-9) H Eosinophils (%) (Auto) 2 % (0-3) Basophils (%) (Auto) 1 % (0-3) Neutrophils # (Auto) 4.4 x10^3/uL (1.8-7.7) Lymphocytes # (Auto) 3.3 x10^3/uL (1.0-4.8) Monocytes # (Auto) 0.9 x10^3/uL (0.0-1.1) Eosinophils # (Auto) 0.2 x10^3/uL (0.0-0.7) Basophils # (Auto) 0.1 x10^3/uL (0.0-0.2) Platelet Estimate Adequate (ADEQUATE) Giant Platelets Few Polychromasia Slight Hypochromasia Slight Poikilocytosis Marked Anisocytosis Slight Sickle Cells Few Target Cells Occ Schistocytes Few RBC Morphology Bizarre Forms Few Absolute Reticulocyte Count 0.141 x10^6/uL (0.020-0.120) Percent Reticulocyte Count 4.3 % (0.5-2.3) H Immature Reticulocyte Fraction 0.64 (0.20-0.60) H Sodium Level 142 mmol/L (136-145) Potassium Level 4.2 mmol/L (3.5-5.1) Chloride Level 106 mmol/L (98-107) Carbon Dioxide Level 25 mmol/L (21-32) Anion Gap 11 (6-14) Blood Urea Nitrogen 8 mg/dL (8-26) Creatinine 0.7 mg/dL (0.7-1.3) Estimated GFR (Cockcroft-Gault) 169.1 BUN/Creatinine Ratio 11 (6-20) Glucose Level 85 mg/dL (70-99) Calcium Level 8.8 mg/dL (8.5-10.1) Total Bilirubin 2.3 mg/dL (0.2-1.0) H Aspartate Amino Transferase (AST) 37 U/L (15-37) Alanine Aminotransferase (ALT) 20 U/L (16-63) Alkaline Phosphatase 116 U/L (46-116) Troponin I Quantitative < 0.017 ng/mL (0.000-0.055) Total Protein 7.5 g/dL (6.4-8.2) Albumin 4.4 g/dL (3.4-5.0) Albumin/Globulin Ratio 1.4 (1.0-1.7) Urine Collection Type Unknown Urine Color Yellow Urine Clarity Clear Urine pH 7.0 (<5.0-8.0) Urine Specific [place] 1.010 (1.000-1.030) Urine Protein Negative mg/dL (NEG-TRACE) Urine Glucose (UA) Negative mg/dL (NEG) Urine Ketones (Stick) Negative mg/dL (NEG) Urine Blood Negative (NEG) Urine Nitrite Negative (NEG) Urine Bilirubin Negative (NEG) Urine Urobilinogen Dipstick 2.0 mg/dL (0.2 mg/dL) Urine Leukocyte Esterase Negative (NEG) Urine RBC 0 /HPF (0-2) Urine WBC 0 /HPF (0-4) Urine Squamous Epithelial Cells Occ /LPF Urine Bacteria 0 /HPF (0-FEW) Laboratory Tests 12/31/20 02:10 Laboratory Tests 12/31/20 02:10 Vital Signs: Vital Signs Date Time Temp Pulse Resp B/P (MAP) Pulse Ox O2 Delivery O2 Flow Rate FiO2 12/31/20 03:20 30 98 12/31/20 02:20 Room Air 12/31/20 00:30 98.8 82 113/68 (83) 98.8 EKG: EKG: EKG ordered and interpreted by myself at 0230 hrs. of sinus rhythm at 64 bpm, unremarkable intervals, no axis deviation, no acute ischemic findings, no STEMI Radiology/Procedures: Radiology/Procedures: EXAM: CHEST ONE VIEW. HISTORY: Chest pain, sickle cell disease. COMPARISON: 11/04/2020. FINDINGS: A frontal view of the chest is obtained. There is mild chronic scarring in the right base. There is no confluent infiltrate. There is no pneumothorax or pleural effusion. The heart is mildly enlarged. IMPRESSION: 1. Mild cardiomegaly. Electronically signed by: Mukesh Salas MD (12/31/2020 3:58 AM) [facility] Course & Med Decision Making: Course & Med Decision Making Vital signs stable, HPI and physical exam nonconcerning for emergent or surgical issues Comprehensive ER work-up obtained and grossly nonconcerning. Patient responded to ER intervention that included IV fluid rehydration and pain control. Discussed utility of admission versus discharge with close hematology follow-up. Patient advised he has good relationship with chemical engraver and can be seen within upcoming 24 to 48 hours for repeat evaluation which I feel is appropriate [employer] reviewed and appropriate, patient reports he will not need pain medications on departure home and will talk to chemical engraver next business day regarding altering this regimen if is needed Strict return precautions were discussed with good understanding by patient, all questions and concerns addressed prior to your departure Candelario Disclaimer: Candelario Disclaimer: This electronic medical record was generated, in whole or in part, using a voice recognition dictation system. Departure Departure Impression: Primary Impression: Sickle cell pain crisis Additional Impression: Sickle cell disease Disposition: HOME / SELF CARE / HOMELESS Condition: IMPROVED Referrals: UNKNOWN PCP NAME (PCP) Patient Instructions: Sickle Cell Disease-SportsMed, Sickle Cell Pain Crisis Additional Instructions: You were seen for your sickle cell pain. Per your history, it was your typical sickle cell pain and were treated with pain control and fluids. You should return to the ED if you develop any chest pain, shortness of breath, fever, cough, or any other new or concerning symptoms. Follow up with the sickle cell clinic as soon as possible to see if you need your regimen altered. GABRIELA VILLA DO December 31, 2020 04:32
[2020-12-31 04:38] VITALS: BP 118/78
--- NOTE | 2021-01-01 12:26 | EKG ---
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
== END 2020-12-31 04:58 | disposition home or self-care (01) ==
LOC: ER 22:11
DX: D57.00 Hb-SS disease with crisis, unspecified (principal); F17.200 Nicotine dependence, unspecified, uncomplicated
CPT/HCPCS: 36415; 71045; 80053; 81001; 84484; 85025; 85045; 93005; 96361; 96374; 96376; 99285; J1170; J7030

== ENCOUNTER 2021-01-08 02:16 | Emergency (ER) | payer BC, MEDICARE ==
[~2021-01-08] VITALS: Ht 175.3 cm; Wt 81.2 kg
--- NOTE | 2021-01-08 03:27 | PHYS DOC ---
Past Medical History Past Medical History: Sickle Cell Disease Additional Past Medical Histor: sickle cell Past Surgical History: Other Additional Past Surgical Histo: L HIP BONE GRAFT Smoking Status: Current Some Day Smoker Alcohol Use: None Drug Use: Marijuana General Adult EDM: Chief Complaint: CHEST PAIN HPI: HPI: Patient is a 25yo male presenting for sickle cell pain. He has known sickle cell disease and was recently here for pain crisis. He was given fluids and pain medications at last visit and discharged home. He follow-ed up with his buyer internship in past week and had chronic pain meds refilled. Nonetheless, he reports minimal relief in pain with prescribed medications and feels classic symptoms of a flair that is likely due to increased home/work stress and weather change. He has had no fever, no motor/sensory/neurologic symptoms Review of Systems: Review of Systems: Fourteen body systems of review of systems have been reviewed. See HPI for pertinent positives and negative responses, other crouch all other systems are negative, non-pertinent or non-contributory Heart Score: C/O Chest Pain: Yes HEART Score for Chest Pain: HEART Score for Chest Pain Response (Comments) Value History Moderately Suspicious 1 ECG Normal 0 Age < 45 0 Risk Factors 1 or 2 Risk Factors 1 Troponin < Normal Limit 0 Total 2 Risk Factors: Risk Factors: DM, Current or recent (<one month) smoker, HTN, HLP, family history of CAD, obesity. Risk Scores: Score 0 - 3: 2.5% MACE over next 6 weeks - Discharge Home Score 4 - 6: 20.3% MACE over next 6 weeks - Admit for Clinical Observation Score 7 - 10: 72.7% MACE over next 6 weeks - Early Invasive Strategies Allergies: Allergies: Allergies Coded Allergies Type Severity Reaction Last Updated Verified No Known Drug Allergies 11/04/20 No Physical Exam: PE: Constitutional: Well developed, well nourished, no acute distress, non-toxic appearance. HENT: Normocephalic, atraumatic, bilateral external ears normal, oropharynx moist, no oral exudates, nose normal. Eyes: PERRLA, EOMI, conjunctiva normal, no discharge. Neck: Normal range of motion, no tenderness, supple, no stridor. Cardiovascular: Heart rate regular, sinus rhythm, no murmurs rubs or gallops Lungs & Thorax: Bilateral breath sounds clear to auscultation Abdomen: Bowel sounds normal, soft, no tenderness, no masses, no pulsatile masses. Nonsurgical abdomen, no peritoneal signs Skin: Warm, dry, no erythema, no rash. Back: No tenderness, no CVA tenderness. Extremities: No tenderness, no cyanosis, no clubbing, ROM intact, no edema. Neurologic: Alert and oriented X 3, grossly normal motor & sensory function, no focal deficits noted. Psychologic: Affect normal, judgement normal, mood normal. Current Patient Data: Labs: Laboratory Tests Test 01/08/21 03:20 White Blood Count 10.0 x10^3/uL Red Blood Count 2.95 x10^6/uL Hemoglobin 8.7 g/dL Hematocrit 24.0 % Mean Corpuscular Volume 82 fL Mean Corpuscular Hemoglobin 30 pg Mean Corpuscular Hemoglobin Concent 36 g/dL Red Cell Distribution Width 24.2 % Platelet Count 324 x10^3/uL Neutrophils (%) (Auto) 57 % Lymphocytes (%) (Auto) 29 % Monocytes (%) (Auto) 11 % Eosinophils (%) (Auto) 2 % Basophils (%) (Auto) 1 % Neutrophils # (Auto) 5.7 x10^3/uL Lymphocytes # (Auto) 2.9 x10^3/uL Monocytes # (Auto) 1.1 x10^3/uL Eosinophils # (Auto) 0.2 x10^3/uL Basophils # (Auto) 0.1 x10^3/uL Platelet Estimate Adequate Giant Platelets Few Polychromasia Slight Hypochromasia Slight Poikilocytosis Mod Anisocytosis Mod Sickle Cells Few Target Cells Occ Ovalocytes Mod Schistocytes Occ Absolute Reticulocyte Count 0.139 x10^6/uL Percent Reticulocyte Count 4.7 % Immature Reticulocyte Fraction 0.68 Sodium Level 142 mmol/L Potassium Level 3.7 mmol/L Chloride Level 105 mmol/L Carbon Dioxide Level 28 mmol/L Anion Gap 9 Blood Urea Nitrogen 7 mg/dL Creatinine 0.7 mg/dL Estimated GFR (Cockcroft-Gault) 169.1 BUN/Creatinine Ratio 10 Glucose Level 105 mg/dL Calcium Level 8.6 mg/dL Total Bilirubin 1.9 mg/dL Aspartate Amino Transf (AST/SGOT) 41 U/L Alanine Aminotransferase (ALT/SGPT) 33 U/L Alkaline Phosphatase 116 U/L Troponin I Quantitative < 0.017 ng/mL Total Protein 7.1 g/dL Albumin 4.3 g/dL Albumin/Globulin Ratio 1.5 Lipase 63 U/L Current Medications Medications (Trade) Dose Ordered Sig/Glenis Route PRN Reason Start Time Stop Time Status Last Admin Dose Admin Hydromorphone HCl (Dilaudid) 1 mg 1X ONCE IVP 01/08/21 03:30 01/08/21 03:31 DC 01/08/21 03:44 Ondansetron HCl (Zofran) 4 mg 1X ONCE IVP 01/08/21 03:30 01/08/21 03:31 DC 01/08/21 03:42 Fentanyl Citrate (Fentanyl 2ml Vial) 75 mcg 1X ONCE IVP 01/08/21 04:45 01/08/21 04:46 DC 01/08/21 05:05 Fentanyl Citrate (Fentanyl 2ml Vial) 50 mcg 1X ONCE IVP 01/08/21 06:00 01/08/21 06:01 DC 01/08/21 06:06 Vital Signs: Vital Signs Date Time Temp Pulse Resp B/P (MAP) Pulse Ox O2 Delivery O2 Flow Rate FiO2 01/08/21 02:24 73 20 131/79 (96) 97 Nasal Cannula 2.0 01/08/21 03:00 98.6 98.6 Vital Signs Date Time Temp Pulse Resp B/P (MAP) Pulse Ox O2 Delivery O2 Flow Rate FiO2 01/08/21 06:06 20 96 Room Air 01/08/21 05:54 70 126/78 (94) 2.0 01/08/21 03:00 98.6 98.6 EKG: EKG: EKG ordered and interpreted by myself at 0225 hrs. as sinus rhythm at 74 bpm, unremarkable intervals, no axis deviation, no acute ischemic findings, no STEMI Radiology/Procedures: Radiology/Procedures: INDICATION: Reason: CHEST PAIN / Spl. Instructions: / History: COMPARISON: December 31, 2020 FINDINGS: Single view of chest obtained. Hypoexpanded exam. Repeat demonstration of mild enlargement the cardiac silhouette. Sclerosis at the left humeral head is again seen. No definite new region of airspace consolidation IMPRESSION: * No focal airspace consolidation. * Sclerosis at the left humeral head. Given the reported history of sickle cell disease this could be from causes such as bone infarct. Electronically signed by: Kevon Montesinos MD (01/08/2021 3:42 AM) [id number] Course & Med Decision Making: Course & Med Decision Making VSS. HPI, PE and workup non-concerning for emergent/surgical issues. Likely dealing with sickle cell pain only Patient responded to ER intervention. All findings reviewed including sclerotic lesion of left humeral head seen on prior imaging. I discussed potential need for hospitalization but patient deferred, cites needing to get home to provide for family as reason for leaving He has good outpatient follow-up, he is tearful saying he is just trying to work hard for his family and provide but flair-ups of his sickle cell disease has impaired his ability to do so. Strict return precautions discussed with good understanding, all questions and concerns addressed prior to departure Candelario Disclaimer: Candelario Disclaimer: This electronic medical record was generated, in whole or in part, using a voice recognition dictation system. Departure Departure Impression: Primary Impression: Sickle cell pain crisis Additional Impression: Sickle cell disease Disposition: HOME / SELF CARE / HOMELESS Condition: STABLE Referrals: UNKNOWN PCP NAME (PCP) Patient Instructions: Sickle Cell Disease-GABRIELA Medina DO January 08, 2021 03:27
[2021-01-08] MEDS ORDERED: HYDROmorphone 2 MG/ML VIAL IVP ONE (03:30)
[2021-01-08] MEDS ORDERED: ONDANSETRON PF 4 MG/2 ML VIAL. IVP ONE (03:30)
[2021-01-08 03:36] LABS: BASO # 0.1 x10^3/uL (0.0-0.2); BASO % 1 % (0-3); EOS # 0.2 x10^3/uL (0.0-0.7); EOS % 2 % (0-3); HEMOGLOBIN 8.7 g/dL (13.0-17.5); LYMPH # 2.9 x10^3/uL (1.0-4.8); LYMPH % 29 % (24-48); MEAN CORPUSCULAR HEMOGLOBIN 30 pg (25-35); MEAN CORPUSCULAR HGB CONC 36 g/dL (31-37); MEAN CORPUSCULAR VOLUME 82 fL (79-100); MONO # 1.1 x10^3/uL (0.0-1.1); MONO % 11 % (0-9); NEUT # 5.7 x10^3/uL (1.8-7.7); NEUT % 57 % (31-73); PLATELET COUNT 324 x10^3/uL (140-400); RED BLOOD COUNT 2.94 x10^6/uL (4.30-5.70); RED CELL DISTRIBUTION WIDTH 24.2 % (11.5-14.5)
--- NOTE | 2021-01-08 03:45 | RAD ---
INDICATION: Reason: CHEST PAIN / Spl. Instructions: / History: COMPARISON: December 31, 2020 FINDINGS: Single view of chest obtained. Hypoexpanded exam. Repeat demonstration of mild enlargement the cardiac silhouette. Sclerosis at the left humeral head is again seen. No definite new region of airspace consolidation IMPRESSION: * No focal airspace consolidation. * Sclerosis at the left humeral head. Given the reported history of sickle cell disease this could b e from causes such as bone infarct. Electronically signed by: Kevon Montesinos MD (01/08/2021 3:42 AM) [id number]
[2021-01-08 03:48] LABS: CALCIUM 8.6 mg/dL (8.5-10.1); CREATININE 0.7 mg/dL (0.7-1.3); GFR 169.1; POTASSIUM 3.7 mmol/L (3.5-5.1)
[2021-01-08 03:53] LABS: ALBUMIN 4.3 g/dL (3.4-5.0); ALBUMIN/GLOBULIN RATIO 1.5 (1.0-1.7); TOTAL BILIRUBIN 1.9 mg/dL (0.2-1.0); TOTAL PROTEIN 7.1 g/dL (6.4-8.2)
[2021-01-08 04:14] LABS: PLT ESTIMATE ADEQUATE (ADEQUATE)
[2021-01-08 04:15] LABS: ANISOCYTOSIS MOD; HYPOCHROMIA SLIGHT; POIKILOCYTOSIS MOD; POLYCHROMASIA SLIGHT; SICKLE CELLS FEW
[2021-01-08 04:16] LABS: OVALOCYTES MOD; TARGET CELLS OCC
[2021-01-08 04:17] LABS: SCHISTOCYTES OCC
[2021-01-08] MEDS ORDERED: fentaNYL PF VIAL 100 MCG/2 ML VIAL IVP ONE ×2 (04:45→06:00)
[2021-01-08 05:54] VITALS: BP 126/78
--- NOTE | 2021-01-08 07:37 | EKG ---
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
== END 2021-01-08 06:30 | disposition home or self-care (01) ==
LOC: ER 02:16
DX: D57.00 Hb-SS disease with crisis, unspecified (principal); F17.200 Nicotine dependence, unspecified, uncomplicated
CPT/HCPCS: 36415; 71045; 80053; 83690; 84484; 85025; 85045; 93005; 96374; 96375; 96376; 99285; J1170; J2405; J3010

== ENCOUNTER 2021-01-11 05:48 | Emergency (ER) | payer BC, MEDICARE ==
[~2021-01-11] VITALS: Ht 175.3 cm; Wt 81.8 kg
--- NOTE | 2021-01-11 06:37 | PHYS DOC ---
Past Medical History Past Medical History: Sickle Cell Disease Additional Past Medical Histor: sickle cell Past Surgical History: Other Additional Past Surgical Histo: L HIP BONE GRAFT Smoking Status: Current Some Day Smoker Alcohol Use: None Drug Use: Marijuana General Adult EDM: Chief Complaint: PAIN CONTROL HPI: HPI: This is a pleasant 25-year-old male with a history of sickle cell anemia who presents the emergency department today with leg pain bilaterally and low back pain. He recently ran out of his medications. He describes the pain as throbbing aching moderate to severe and without alleviating factors. He denies chest pain shortness of breath facial droop slurred speech or double vision. Review of systems negative for abdominal pain vomiting diaphoresis fevers chills headache. All other review of systems negative. ED course: 25-year-old male presenting with a acute sickle cell pain crisis. Vital signs unremarkable. Patient was given IV medication to control patient's pain. Blood work similar to previous. On reexamination the patient is feeling better. Will discharge to follow-up with PCP in 1 to 2 days. Return for any worsening symptoms. Review of Systems: Review of Systems: Constitutional: Denies fever or chills. [] Eyes: Denies change in visual acuity. [] HENT: Denies nasal congestion or sore throat. [] Respiratory: Denies cough or shortness of breath. [] Cardiovascular: Denies chest pain or edema. [] GI: Denies abdominal pain, nausea, vomiting, bloody stools or diarrhea. [] : Denies dysuria. [] Musculoskeletal: endorses leg pain. Integument: Denies rash. [] Neurologic: Denies headache, focal weakness or sensory changes. [] Endocrine: Denies polyuria or polydipsia. [] Lymphatic: Denies swollen glands. [] Psychiatric: Denies depression or anxiety. [] Heart Score: C/O Chest Pain: No Risk Factors: Risk Factors: DM, Current or recent (<one month) smoker, HTN, HLP, family hist ory of CAD, obesity. Risk Scores: Score 0 - 3: 2.5% MACE over next 6 weeks - Discharge Home Score 4 - 6: 20.3% MACE over next 6 weeks - Admit for Clinical Observation Score 7 - 10: 72.7% MACE over next 6 weeks - Early Invasive Strategies Allergies: Allergies: Allergies Coded Allergies Type Severity Reaction Last Updated Verified No Known Drug Allergies 11/04/20 No Physical Exam: PE: Constitutional: Well developed, well nourished, no acute distress, non-toxic appearance. [] HENT: Normocephalic, atraumatic, bilateral external ears normal, oropharynx moist, no oral exudates, nose normal. [] Eyes: PERRLA, EOMI, conjunctiva normal, no discharge. [] Neck: Normal range of motion, no tenderness, supple, no stridor. [] Cardiovascular:Heart rate regular rhythm, no murmur [] Lungs & Thorax: Bilateral breath sounds clear to auscultation [] Abdomen: Bowel sounds normal, soft, no tenderness, no masses, no pulsatile masses. [] Skin: Warm, dry, no erythema, no rash. [] Back: No tenderness, no CVA tenderness. [] Extremities: No tenderness, no cyanosis, no clubbing, ROM intact, no edema. [] Neurologic: Alert and oriented X 3, normal motor function, normal sensory function, no focal deficits noted. [] Psychologic: Affect normal, judgement normal, mood normal. [] Current Patient Data: Vital Signs: Vital Signs Date Time Temp Pulse Resp B/P (MAP) Pulse Ox O2 Delivery O2 Flow Rate FiO2 01/11/21 05:59 98.6 76 18 116/56 (76) 94 Room Air 98.6 EKG: EKG: [] Radiology/Procedures: Radiology/Procedures: [] Course & Med Decision Making: Course & Med Decision Making Pertinent Labs and Imaging studies reviewed. (See chart for details) [] Candelario Disclaimer: Candelario Disclaimer: This electronic medical record was generated, in whole or in part, using a voice recognition dictation system. Departure Departure Impression: Primary Impression: Sickle cell anemia with pain Additional Impression: Sickle cell pain crisis Disposition: HOME / SELF CARE / HOMELESS Condition: STABLE Referrals: UNKNOWN PCP NAME (PCP) Patient Instructions: Sickle Cell Pain Crisis Additional Instructions: EMERGENCY DEPARTMENT GENERAL DISCHARGE INSTRUCTIONS Follow-up with your primary physician in 1 to 2 days. Return to the emergency department if you have any new or concerning findings. Thank you for coming to [facility] Emergency Department (ED) today and trusting us with you care. We trust that you had a positive experi ence in our Emergency Department. If you wish to speak to the department management, you may call the Director at [phone]. Follow up is important in emergency/acute care visits. This condition should be evaluated by your primary care physician and any necessary consulting services for continued management within a few days (1-2) after discharge. Return to the emergency department if you have any new or concerning symptoms including but not limited to fever, chills, nausea, vomiting, intractable pain, any new rashes, chest pain, shortness of breath, uncontrolled bleeding, difficulty breathing, and/or vision loss. 1. Do you have a private Doctor? If you do not have a private doctor, please ask for a resource list of physicians or clinics that may be able to assist you with follow up care. 2. If a lab test or culture has been done and does not come back immediately, your results will be reviewed and you will be notified if you need a change in treatment. 3. Your care today has been supervised by a physician who is specially trained in emergency care. Many problems require more than one evaluation for a complete diagnosis and treatment. We recommend that you schedule your follow up appointment as recommended to ensure complete treatment of you illness or injury. If you are unable to obtain follow up care and continue to have a problem, or if your condition worsens, we recommend that you return to the ED. 4. We are not able to safely determine your condition over the phone nor are we able to give sound medical advice over the phone. For these safety reasons, if you call for medical advice we will ask you to come to the ED for further evaluation. IF YOUR SYMPTOMS WORSEN OR NEW SYMPTOMS DEVELOP, OR YOU HAVE CONCERNS ABOUT YOUR CONDITION; OR IF YOUR CONDITION WORSENS WHILE YOU ARE WAITING FOR YOUR FOLLOW UP APPOINTMENT; EITHER CONTACT YOUR PRIMARY CARE DOCTOR, THE PHYSICIAN WHOSE NAME AND NUMBER YOU WERE GIVEN, OR RETURN TO THE ED IMMEDIATELY. Scripts Hydrocodone Bit/Acetaminophen (HYDROCODONE-APAP 5-325 ) 1 Tab Tablet 1 TAB PO PRN Q8HRS PRN for sev for 4 Days, #8 TAB 0 Refills Prov: SCOT SANTOS MD 01/11/21 SCOT SANTOS MD January 11, 2021 06:37
[2021-01-11] MEDS: HYDROmorphone 2 MG/ML VIAL IV PRN ×2 (06:46→07:31)
[2021-01-11] MEDS ORDERED: IV NORMAL SALINE 1000ML BAG 1,000 ML IV ONE (07:00)
[2021-01-11 07:08] LABS: BASO # 0.1 x10^3/uL (0.0-0.2); BASO % 2 % (0-3); EOS # 0.1 x10^3/uL (0.0-0.7); EOS % 1 % (0-3); HEMATOCRIT 23.5 % (39.0-53.0); HEMOGLOBIN 8.6 g/dL (13.0-17.5); LYMPH # 2.9 x10^3/uL (1.0-4.8); LYMPH % 40 % (24-48); MEAN CORPUSCULAR HEMOGLOBIN 30 pg (25-35); MEAN CORPUSCULAR HGB CONC 37 g/dL (31-37); MEAN CORPUSCULAR VOLUME 82 fL (79-100); MONO # 0.9 x10^3/uL (0.0-1.1); MONO % 12 % (0-9); NEUT # 3.3 x10^3/uL (1.8-7.7); NEUT % 46 % (31-73); PLATELET COUNT 352 x10^3/uL (140-400); RED BLOOD COUNT 2.88 x10^6/uL (4.30-5.70); RED CELL DISTRIBUTION WIDTH 23.8 % (11.5-14.5); WHITE BLOOD COUNT 7.4 x10^3/uL (4.0-11.0)
[2021-01-11 07:18] LABS: CALCIUM 8.6 mg/dL (8.5-10.1); CREATININE 0.7 mg/dL (0.7-1.3); GFR 169.1; POTASSIUM 3.2 mmol/L (3.5-5.1)
[2021-01-11 07:23] LABS: ALBUMIN 4.4 g/dL (3.4-5.0); ALBUMIN/GLOBULIN RATIO 1.5 (1.0-1.7); TOTAL BILIRUBIN 3.8 mg/dL (0.2-1.0); TOTAL PROTEIN 7.3 g/dL (6.4-8.2)
[2021-01-11 07:26] VITALS: BP 107/62
[2021-01-11] MEDS ORDERED: HYDR-2761 PO (07:35)
[2021-01-11 10:02] LABS: PLT ESTIMATE ADEQUATE (ADEQUATE)
[2021-01-11 10:04] LABS: ANISOCYTOSIS MOD
[2021-01-11 10:05] LABS: SICKLE CELLS PRESENT
== END 2021-01-11 08:08 | disposition home or self-care (01) ==
LOC: ER 05:48
DX: D57.00 Hb-SS disease with crisis, unspecified (principal); M54.5 Low back pain; M79.604 Pain in right leg; M79.605 Pain in left leg; F17.200 Nicotine dependence, unspecified, uncomplicated
CPT/HCPCS: 36415; 80053; 85025; 85045; 96361; 96374; 96376; 99285; J1170; J7030

== ENCOUNTER 2021-01-27 07:58 | Emergency (ER) | payer BC, MEDICARE ==
[~2021-01-27] VITALS: Ht 175.3 cm; Wt 81.8 kg
[2021-01-27] MEDS ORDERED: HYDROmorphone 2 MG/ML VIAL IVP ONE ×3 (08:15→09:00)
[2021-01-27] MEDS ORDERED: IV 1/2 NORMAL SALINE 1,000 ML IV ONE (08:15)
[2021-01-27] MEDS ORDERED: IV RINGERS,LACTATED 1000ML 1,000 ML IV ONE (08:15)
--- NOTE | 2021-01-27 08:23 | ED.ADGEN ---
Past Medical History Past Medical History: Sickle Cell Disease Additional Past Medical Histor: Necrotic L hip bone Past Surgical History: Other Additional Past Surgical Histo: L HIP BONE GRAFT Smoking Status: Current Some Day Smoker Alcohol Use: Occasionally Drug Use: Marijuana General Adult EDM: Chief Complaint: PAIN CONTROL HPI: HPI: Patient is a 25 year old male coming in for back pain. Patient has a history of sickle cell was seen here 4 hours ago for the same. Says his pain was improved and he was feeling better and was discharged. Patient states the pain is worse now. He said the pain started about 2 days ago has been gradually getting worse. States his pain is all across both sides of his back which is a typical location for a sickle cell pain. Patient has significant family history for sickle cell. States he is been mostly compliant with his medications, states he might of missed a couple of days of his sickle cell medications. Review of Systems: Review of Systems: All other systems within normal limits except for as noted in the HPI Current Medications: Current Medications Medications (Trade) Dose Ordered Sig/Glenis Start Time Stop Time Status Last Admin Dose Admin Acetaminophen (Tylenol) 650 mg PRN Q4HRS PRN 01/27/21 10:00 01/28/21 09:59 Fentanyl Citrate (Fentanyl 2ml Vial) 100 mcg 1X ONCE 01/27/21 10:00 01/27/21 10:01 DC Hydromorphone HCl (Dilaudid) 2 mg 1X ONCE 01/27/21 09:00 01/27/21 09:02 DC 01/27/21 09:07 2 MG Ondansetron HCl (Zofran) 4 mg PRN Q8HRS PRN 01/27/21 10:00 01/28/21 09:59 Ringer's Solution 1,000 ml @ 75 mls/hr 1X ONCE 01/27/21 08:15 01/27/21 21:34 01/27/21 08:16 75 MLS/HR Sodium Chloride 1,000 ml @ 250 mls/hr 1X ONCE 01/27/21 08:15 01/27/21 12:14 Allergies: Allergies: Allergies Coded Allergies Type Severity Reaction Last Updated Verified No Known Drug Allergies 11/04/20 No Physical Exam: PE: Constitutional: Well developed, well nourished, no acute distress, non-toxic appearance. [] HENT: Normocephalic, atraumatic, bilateral external ears normal, nose normal. [] Eyes: PERRLA, conjunctiva normal, no discharge. [] Neck: No rigidity, supple, no stridor. [] Cardiovascular: Regular rate and rhythm, brisk cap refill [] Lungs & Thorax: Non labored symmetric respirations, no tachypnea or respiratory distress [] Abdomen: Soft, nondistended. Skin: Warm, dry, no erythema, no rash. [] Back: Unremarkable Extremities: No deformities, range of motion grossly intact, no lower extremity edema [] Neurologic: Alert and oriented X 3, no focal deficits noted. [] Psychologic: Affect normal, judgement normal, mood normal. [] Current Patient Data: Labs: Laboratory Tests Test 01/27/21 08:13 01/27/21 08:55 01/27/21 09:05 White Blood Count 13.1 x10^3/uL (4.0-11.0) H Red Blood Count 3.14 x10^6/uL (4.30-5.70) L Hemoglobin 9.2 g/dL (13.0-17.5) L Hematocrit 25.9 % (39.0-53.0) L Mean Corpuscular Volume 81 fL (79-100) Mean Corpuscular Hemoglobin 29 pg (25-35) Mean Corpuscular Hemoglobin Concent 36 g/dL (31-37) Red Cell Distribution Width 24.3 % (11.5-14.5) H Platelet Count 251 x10^3/uL (140-400) Neutrophils (%) (Auto) 49 % (31-73) Lymphocytes (%) (Auto) 46 % (24-48) Monocytes (%) (Auto) 4 % (0-9) Eosinophils (%) (Auto) 1 % (0-3) Basophils (%) (Auto) 1 % (0-3) Neutrophils # (Auto) 6.4 x10^3/uL (1.8-7.7) Lymphocytes # (Auto) 6.0 x10^3/uL (1.0-4.8) H Monocytes # (Auto) 0.5 x10^3/uL (0.0-1.1) Eosinophils # (Auto) 0.1 x10^3/uL (0.0-0.7) Basophils # (Auto) 0.1 x10^3/uL (0.0-0.2) Platelet Estimate Pending Absolute Reticulocyte Count 0.123 x10^6/uL (0.020-0.120) Percent Reticulocyte Count 3.9 % (0.5-2.3) H Immature Reticulocyte Fraction 0.66 (0.20-0.60) H Sodium Level 144 mmol/L (136-145) Potassium Level 4.4 mmol/L (3.5-5.1) Chloride Level 105 mmol/L (98-107) Carbon Dioxide Level 23 mmol/L (21-32) Anion Gap 16 (6-14) H Blood Urea Nitrogen 7 mg/dL (8-26) L Creatinine 0.7 mg/dL (0.7-1.3) Estimated GFR (Cockcroft-Gault) 169.1 BUN/Creatinine Ratio 10 (6-20) Glucose Level 151 mg/dL (70-99) H Calcium Level 9.3 mg/dL (8.5-10.1) Phosphorus Level 4.0 mg/dL (2.6-4.7) Magnesium Level 2.2 mg/dL (1.8-2.4) Total Bilirubin 2.5 mg/dL (0.2-1.0) H Aspartate Amino Transferase (AST) 66 U/L (15-37) H Alanine Aminotransferase (ALT) 55 U/L (16-63) Alkaline Phosphatase 136 U/L (46-116) H Troponin I Quantitative < 0.017 ng/mL (0.000-0.055) OG-Djo-U-Type Natriuretic Peptide 7 pg/mL (0-124) Total Protein 8.3 g/dL (6.4-8.2) H Albumin 5.1 g/dL (3.4-5.0) H Albumin/Globulin Ratio 1.6 (1.0-1.7) Lactic Acid Level 1.4 mmol/L (0.4-2.0) POC Venous pH 7.43 (7.32-7.42) H POC Venous pCO2 39 mmHg (41-51) L POC Venous pO2 164 mmHg (20-40) H Venous Blood HCO3 26 mmol/L (24-28) POC Venous O2 Saturation (Archie) 100 % POC FiO2 21.0 Laboratory Tests 01/27/21 08:13 Laboratory Tests 01/27/21 08:13 Vital Signs: Vital Signs Date Time Temp Pulse Resp B/P (MAP) Pulse Ox O2 Delivery O2 Flow Rate FiO2 01/27/21 09:07 56 95 Nasal Cannula 2.0 01/27/21 08:00 97.5 114 162/90 (114) 97.5 EKG: EKG: Sinus rhythm, heart rate 75 bpm, left axis deviation, no ST elevation or d epression, no ectopy. Heart Score: C/O Chest Pain: No Risk Factors: Risk Factors: DM, Current or recent (<one month) smoker, HTN, HLP, family history of CAD, obesity. Risk Scores: Score 0 - 3: 2.5% MACE over next 6 weeks - Discharge Home Score 4 - 6: 20.3% MACE over next 6 weeks - Admit for Clinical Observation Score 7 - 10: 72.7% MACE over next 6 weeks - Early Invasive Strategies Radiology/Procedures: Radiology/Procedures: [facility] [address] [place] [address] IMAGING REPORT Signed PATIENT: RASHAUN CHURCH EACCOUNT: [id number] : 1995 LOCATION: ER AGE: 25 SEX: M EXAM STATUS: REG ER ORD. PHYSICIAN: LEE ANN PINA MD REASON: sickle cell, back pain PROCEDURE: CHEST AP ONLY EXAMINATION: Chest radiograph. VIEWS: Single AP view COMPARISON: 01/08/2021 INDICATION:25 years, Male, sickle cell, back pain. FINDINGS: Normal cardiomediastinal silhouette. No focal consolidation. No pleural effusion or pneumothorax. No acute osseous process. IMPRESSION: No acute cardiopulmonary process. Electronically signed by: Surekha Stover MD (01/27/2021 9:36 AM) [id number] DICTATED and SIGNED BY: SUREKHA STOVER MD DATE: 01/27/21 [id number] [] Course & Med Decision Making: Course & Med Decision Making Pertinent Labs and Imaging studies reviewed. (See chart for details) [] Dragon Disclaimer: Dragcaro Disclaimer: This electronic medical record was generated, in whole or in part, using a voice recognition dictation system. Departure Departure Impression: Primary Impression: Sickle cell pain crisis Disposition: ADMITTED INPATIENT Admitting Physician: CAROL Condition: STABLE Referrals: UNKNOWN PCP NAME (PCP) LEE ANN PINA MD Jan 27, 2021 08:23
[2021-01-27 08:48] LABS: BASO # 0.1 x10^3/uL (0.0-0.2); BASO % 1 % (0-3); EOS # 0.1 x10^3/uL (0.0-0.7); EOS % 1 % (0-3); HEMATOCRIT 25.9 % (39.0-53.0); HEMOGLOBIN 9.2 g/dL (13.0-17.5); LYMPH % 46 % (24-48); MEAN CORPUSCULAR HEMOGLOBIN 29 pg (25-35); MEAN CORPUSCULAR HGB CONC 36 g/dL (31-37); MEAN CORPUSCULAR VOLUME 81 fL (79-100); MONO # 0.5 x10^3/uL (0.0-1.1); MONO % 4 % (0-9); NEUT # 6.4 x10^3/uL (1.8-7.7); NEUT % 49 % (31-73); PLATELET COUNT 251 x10^3/uL (140-400); RED BLOOD COUNT 3.18 x10^6/uL (4.30-5.70); RED CELL DISTRIBUTION WIDTH 24.3 % (11.5-14.5); WHITE BLOOD COUNT 13.1 x10^3/uL (4.0-11.0)
[2021-01-27] MEDS ORDERED: HYDROXYUREA 500 MG CAPSULE PO SCH (09:00)
[2021-01-27 09:08] LABS: CALCIUM 9.3 mg/dL (8.5-10.1); CREATININE 0.7 mg/dL (0.7-1.3); GFR 169.1; POTASSIUM 4.4 mmol/L (3.5-5.1)
[2021-01-27 09:12] LABS: ISTAT BE VENOUS 2 mmol/L (0-3); ISTAT HCO3 VEN 26 mmol/L (24-28); ISTAT PCO2 VEN 39 mmHg (41-51); ISTAT PH VEN 7.43 (7.32-7.42); ISTAT PO2 VEN 164 mmHg (20-40); ISTAT SAT O2 VEN 100 %; ISTAT TCO2 VEN 27 mmol/L (21-32)
[2021-01-27 09:13] LABS: ALBUMIN 5.1 g/dL (3.4-5.0); ALBUMIN/GLOBULIN RATIO 1.6 (1.0-1.7); MAGNESIUM 2.2 mg/dL (1.8-2.4); TOTAL BILIRUBIN 2.5 mg/dL (0.2-1.0); TOTAL PROTEIN 8.3 g/dL (6.4-8.2)
--- NOTE | 2021-01-27 09:39 | RAD ---
EXAMINATION: Chest radiograph. VIEWS: Single AP view COMPARISON: 01/08/2021 INDICATION:25 years, Male, sickle cell, back pain. FINDINGS: Normal cardiomediastinal silhouette. No focal consolidation. No pleural effusion or pneumothorax. No acute osseous process. IMPRESSION: No acute cardiopulmonary process. Electronically signed by: Joesph Stover MD (01/27/2021 9:36 AM) [id number]
[2021-01-27] MEDS ORDERED: fentaNYL PF VIAL 100 MCG/2 ML VIAL ONE (09:55)
[2021-01-27] MEDS ORDERED: ONDANSETRON PF 4 MG/2 ML VIAL. IV PRN (10:00)
[2021-01-27] MEDS ORDERED: fentaNYL PF VIAL 100 MCG/2 ML VIAL IV PRN (10:00)
[2021-01-27] MEDS ORDERED: fentaNYL PF VIAL 100 MCG/2 ML VIAL IVP ONE ×4 (10:00→13:45)
[2021-01-27] MEDS ORDERED: ACETAMINOPHEN 325 MG TABLET. PO PRN ×2 (10:00→10:45)
--- NOTE | 2021-01-27 10:09 | PDOC1 ---
History and Physical Date of Admission Date of Admission DATE: 01/27/21 TIME: 10:08 Identification/Chief Complaint Chief Complaint Back pain Source Source: Chart review, Patient History of Present Illness History of Present Illness Patient is a 25-year-old male with past medical history sickle cell disease, who presents to the ED with complaints of upper back pain for the past 2 days. He was seen in ED last night for similar symptoms. He reports bilateral upper and bilateral lower back pain, 9/10. He states his pain is similar to his typical sickle cell pain. States he is mostly compliant with his medications, but does admit to missing some doses over the past couple days. In the ED he received IV Dilaudid 4 mg and IV fluids. Labs on admission showed WBC 13.1, Hb 9.2, Hct 25.9, absolute reticulocyte count 0.123. Will admit patient for further medical management. Past Medical History Pulmonary: No pertinent hx Heme/Onc: Sickle cell disease Past Surgical History Past Surgical History: No pertinent history Family History Family History Sickle cell disease Family History: High Cholestrol, Hypertension, Other Social History Smoke: <1 pack per day ALCOHOL: occassional Drugs: Marijuana Current Problem List Problem List Problems Medical Problems: (1) Sickle cell pain crisis Status: Acute Current Medications Current Medications Current Medications Ringer's Solution 1,000 ml @ 75 mls/hr 1X ONCE IV Last administered on 01/27/21at 08:16; Start 01/27/21 at 08:15; Stop 01/27/21 at 21:34 Hydromorphone HCl (Dilaudid) 1 mg 1X ONCE IVP Last administered on 01/27/21at 08:16; Start 01/27/21 at 08:15; Stop 01/27/21 at 08:16; Status DC Sodium Chloride 1,000 ml @ 250 mls/hr 1X ONCE IV Last administered on 01/27/21at 10:04; Start 01/27/21 at 08:15; Stop 01/27/21 at 12:14 Hydromorphone HCl (Dilaudid) 1 mg 1X ONCE IVP Last administered on 01/27/21at 08:28; Start 01/27/21 at 08:30; Stop 01/27/21 at 08:31; Status DC Hydromorphone HCl (Dilaudid) 2 mg 1X ONCE IVP Last administered on 01/27/21at 09:07; Start 01/27/21 at 09:00; Stop 01/27/21 at 09:02; Status DC Fentanyl Citrate (Fentanyl 2ml Vial) 100 mcg STK-MED ONCE .ROUTE ; Start 01/27/21 at 09:55; Stop 01/27/21 at 09:55; Status DC Ondansetron HCl (Zofran) 4 mg PRN Q8HRS PRN IV NAUSEA/VOMITING; Start 01/27/21 at 10:00; Stop 01/28/21 at 09:59 Fentanyl Citrate (Fentanyl 2ml Vial) 75 mcg PRN Q1HR PRN IV PAIN; Start 01/27/21 at 10:00; Stop 01/28/21 at 09:59 Acetaminophen (Tylenol) 650 mg PRN Q4HRS PRN PO FEVER > 100.3'F; Start 01/27/21 at 10:00; Stop 01/28/21 at 09:59 Fentanyl Citrate (Fentanyl 2ml Vial) 100 mcg 1X ONCE IVP Last administered on 01/27/21at 10:03; Start 01/27/21 at 10:00; Stop 01/27/21 at 10:01; Status DC Active Scripts Active Oxycodone Hcl Immed.release (Oxycodone Hcl) 10 Mg Tablet 1 Tab PO Q6HRS PRN MDD 4 Tablet(s) Hydrocodone-Apap 5-325 (Hydrocodone Bit/Acetaminophen) 1 Tab Tablet 1 Tab PO PRN Q8HRS PRN 4 Days Levofloxacin 750 Mg Tablet 1 Tab PO DAILY 5 Days Oxycodone Hcl Immed.release (Oxycodone Hcl) 15 Mg Tablet 15 Mg PO PRN Q6HRS PRN 6 Days Anaprox Ds (Naproxen Sodium) 550 Mg Tablet 1 Tab PO BID PRN 15 Days Reported Hydroxyurea 500 Mg Capsule 1,500 Mg PO DAILY [Folic Acid] 1 Mg PO DAILY Allergies Allergies: Coded Allergies: No Known Drug Allergies (Unverified , 11/04/20) ROS Review of System GENERAL: Bilateral lower and bilateral upper back pain. No history of weight change, weakness or fevers. SKIN: No bruising, hair changes or rashes. EYES: No blurred, double or loss of vision. NOSE AND THROAT: No history of nosebleeds, hoarseness or sore throat. HEART: Denies chest pain, denies palpitations. LUNGS: Denies cough, hemoptysis, wheezing or shortness of breath. GASTROINTESTINAL: Denies nausea, vomiting, abdominal pain. GENITOURINARY: Denies dysuria, frequency, urgency, hematuria. NEUROLOGIC: Denies history of numbness, tingling, tremor or weakness. PSYCHIATRIC: Denies anxiety, denies depression. ENDOCRINE: No history of heat or cold intolerance, polyuria or polydipsia. EXTREMITIES: Denies muscle weakness, joint pain, pain on walking or stiffness. Physical Exam Physical Exam General: Alert, Oriented X3, Cooperative, severe distress HEENT: PERRLA, EOMI Lungs: Clear to auscultation, Normal air movement, tachypneic. Heart: Tachycardic, no murmurs Cardiovascular: S1, S2 Abdomen: Normal bowel sounds, Soft, No tenderness Extremities: No clubbing, No cyanosis Skin: No rashes, No significant lesion Neuro: Normal speech, Normal tone, Sensation intact Psych/Mental Status: Mental status NL, Mood NL Vitals Vitals Vital Signs Date Time Temp Pulse Resp B/P (MAP) Pulse Ox O2 Delivery O2 Flow Rate FiO2 01/27/21 10:03 30 94 Nasal Cannula 2.0 01/27/21 08:00 97.5 114 162/90 (114) 97.5 Labs Labs Laboratory Tests Test 01/27/21 08:13 01/27/21 08:55 01/27/21 09:05 White Blood Count 13.1 x10^3/uL (4.0-11.0) Red Blood Count 3.14 x10^6/uL (4.30-5.70) Hemoglobin 9.2 g/dL (13.0-17.5) Hematocrit 25.9 % (39.0-53.0) Mean Corpuscular Volume 81 fL (79-100) Mean Corpuscular Hemoglobin 29 pg (25-35) Mean Corpuscular Hemoglobin Concent 36 g/dL (31-37) Red Cell Distribution Width 24.3 % (11.5-14.5) Platelet Count 251 x10^3/uL (140-400) Neutrophils (%) (Auto) 49 % (31-73) Lymphocytes (%) (Auto) 46 % (24-48) Monocytes (%) (Auto) 4 % (0-9) Eosinophils (%) (Auto) 1 % (0-3) Basophils (%) (Auto) 1 % (0-3) Neutrophils # (Auto) 6.4 x10^3/uL (1.8-7.7) Lymphocytes # (Auto) 6.0 x10^3/uL (1.0-4.8) Monocytes # (Auto) 0.5 x10^3/uL (0.0-1.1) Eosinophils # (Auto) 0.1 x10^3/uL (0.0-0.7) Basophils # (Auto) 0.1 x10^3/uL (0.0-0.2) Absolute Reticulocyte Count 0.123 x10^6/uL (0.020-0.120) Percent Reticulocyte Count 3.9 % (0.5-2.3) Immature Reticulocyte Fraction 0.66 (0.20-0.60) Sodium Level 144 mmol/L (136-145) Potassium Level 4.4 mmol/L (3.5-5.1) Chloride Level 105 mmol/L (98-107) Carbon Dioxide Level 23 mmol/L (21-32) Anion Gap 16 (6-14) Blood Urea Nitrogen 7 mg/dL (8-26) Creatinine 0.7 mg/dL (0.7-1.3) Estimated GFR (Cockcroft-Gault) 169.1 BUN/Creatinine Ratio 10 (6-20) Glucose Level 151 mg/dL (70-99) Calcium Level 9.3 mg/dL (8.5-10.1) Phosphorus Level 4.0 mg/dL (2.6-4.7) Magnesium Level 2.2 mg/dL (1.8-2.4) Total Bilirubin 2.5 mg/dL (0.2-1.0) Aspartate Amino Transf (AST/SGOT) 66 U/L (15-37) Alanine Aminotransferase (ALT/SGPT) 55 U/L (16-63) Alkaline Phosphatase 136 U/L (46-116) Troponin I Quantitative < 0.017 ng/mL (0.000-0.055) UB-Lma-X-Type Natriuretic Peptide 7 pg/mL (0-124) Total Protein 8.3 g/dL (6.4-8.2) Albumin 5.1 g/dL (3.4-5.0) Albumin/Globulin Ratio 1.6 (1.0-1.7) Lactic Acid Level 1.4 mmol/L (0.4-2.0) Bedside Venous pH 7.43 (7.32-7.42) Bedside Venous pCO2 39 mmHg (41-51) Bedside Venous pO2 164 mmHg (20-40) Venous Blood HCO3 26 mmol/L (24-28) POC Venous O2 Saturation (Archie) 100 % Bedside FiO2 21.0 Laboratory Tests Test 01/27/21 08:13 01/27/21 08:55 01/27/21 09:05 White Blood Count 13.1 x10^3/uL (4.0-11.0) Red Blood Count 3.14 x10^6/uL (4.30-5.70) Hemoglobin 9.2 g/dL (13.0-17.5) Hematocrit 25.9 % (39.0-53.0) Mean Corpuscular Volume 81 fL (79-100) Mean Corpuscular Hemoglobin 29 pg (25-35) Mean Corpuscular Hemoglobin Concent 36 g/dL (31-37) Red Cell Distribution Width 24.3 % (11.5-14.5) Platelet Count 251 x10^3/uL (140-400) Neutrophils (%) (Auto) 49 % (31-73) Lymphocytes (%) (Auto) 46 % (24-48) Monocytes (%) (Auto) 4 % (0-9) Eosinophils (%) (Auto) 1 % (0-3) Basophils (%) (Auto) 1 % (0-3) Neutrophils # (Auto) 6.4 x10^3/uL (1.8-7.7) Lymphocytes # (Auto) 6.0 x10^3/uL (1.0-4.8) Monocytes # (Auto) 0.5 x10^3/uL (0.0-1.1) Eosinophils # (Auto) 0.1 x10^3/uL (0.0-0.7) Basophils # (Auto) 0.1 x10^3/uL (0.0-0.2) Absolute Reticulocyte Count 0.123 x10^6/uL (0.020-0.120) Percent Reticulocyte Count 3.9 % (0.5-2.3) Immature Reticulocyte Fraction 0.66 (0.20-0.60) Sodium Level 144 mmol/L (136-145) Potassium Level 4.4 mmol/L (3.5-5.1) Chloride Level 105 mmol/L (98-107) Carbon Dioxide Level 23 mmol/L (21-32) Anion Gap 16 (6-14) Blood Urea Nitrogen 7 mg/dL (8-26) Creatinine 0.7 mg/dL (0.7-1.3) Estimated GFR (Cockcroft-Gault) 169.1 BUN/Creatinine Ratio 10 (6-20) Glucose Level 151 mg/dL (70-99) Calcium Level 9.3 mg/dL (8.5-10.1) Phosphorus Level 4.0 mg/dL (2.6-4.7) Magnesium Level 2.2 mg/dL (1.8-2.4) Total Bilirubin 2.5 mg/dL (0.2-1.0) Aspartate Amino Transf (AST/SGOT) 66 U/L (15-37) Alanine Aminotransferase (ALT/SGPT) 55 U/L (16-63) Alkaline Phosphatase 136 U/L (46-116) Troponin I Quantitative < 0.017 ng/mL (0.000-0.055) IW-Dvx-L-Type Natriuretic Peptide 7 pg/mL (0-124) Total Protein 8.3 g/dL (6.4-8.2) Albumin 5.1 g/dL (3.4-5.0) Albumin/Globulin Ratio 1.6 (1.0-1.7) Lactic Acid Level 1.4 mmol/L (0.4-2.0) Bedside Venous pH 7.43 (7.32-7.42) Bedside Venous pCO2 39 mmHg (41-51) Bedside Venous pO2 164 mmHg (20-40) Venous Blood HCO3 26 mmol/L (24-28) POC Venous O2 Saturation (Archie) 100 % Bedside FiO2 21.0 Images Images CHEST AP ONLY EXAMINATION: Chest radiograph. VIEWS: Single AP view COMPARISON: 01/08/2021 INDICATION:25 years, Male, sickle cell, back pain. FINDINGS: Normal cardiomediastinal silhouette. No focal consolidation. No pleural effusion or pneumothorax. No acute osseous process. IMPRESSION: No acute cardiopulmonary process. VTE Prophylaxis Ordered VTE Prophylaxis Devices: No VTE Pharmacological Prophylaxi: Yes Assessment/Plan Assessment/Plan A/P: Sickle cell anemia with acute pain crisis H/o AVN right hip Depression Constipation Intractable back pain Plan: No history of CVA or blood clots but has had chest syndrome multiple times. Supposed to be on the Hydrea 1500 mg daily. 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 Continue IV hydration Continue hydroxyurea 1500 mg daily Will treat empirically with Rocephin and azithromycin Docusate twice daily bowel regimen given opiate use Transfuse for symptomatic anemia if Hb<7 given concern for iron overload in patients with sickle cell anemia Monitor CBC, retic and LDH Follow-up with [facility] sickle cell disease clinic at the time of discharge for further outpatient care FEN - regular diet PPX - lovenox FULL CODE Dispo - inpatient for sickle cell pain crisis Justifications for Admission Other Justification sickle cell crisis STEPHANY DEAN MD Jan 27, 2021 10:08
[2021-01-27] MEDS ORDERED: NALOXONE 0.4 MG/ML VIAL. IV PRN (10:30)
[2021-01-27] MEDS ORDERED: AZITHROMYCIN 500 MG in IV NORMAL SALINE 250ML 250 ML IV ONE (10:30)
[2021-01-27] MEDS ORDERED: IV NORMAL SALINE 1000ML BAG 1,000 ML IV SCH ×3 (10:30→15:00)
[2021-01-27] MEDS ORDERED: MAGNESIUM HYDROXIDE 2,400 MG/30 ML ORAL.SUSP. PO PRN (10:45)
[2021-01-27] MEDS ORDERED: BISACODYL 10 MG SUPP.RECT. PR PRN (10:45)
[2021-01-27] MEDS ORDERED: CALCIUM CARBONATE 500 MG TAB.CHEW PO PRN (10:45)
[2021-01-27] MEDS ORDERED: ZOLPIDEM 5 MG TABLET. PO PRN (10:45)
[2021-01-27] MEDS ORDERED: AZITHRMYCN 500MG IVPB FOR OMNI 250 ML IV ONE (10:45)
[2021-01-27] MEDS ORDERED: ONDANSETRON PF 4 MG/2 ML VIAL. IVP PRN (10:45)
[2021-01-27] MEDS ORDERED: MAG HYDROX/ALUMINUM HYD/SIMETH 30 ML ORAL.SUSP PO PRN (10:45)
[2021-01-27] MEDS ORDERED: cefTRIAXone IV Push 1 GM VIAL. IVP SCH (11:00)
[2021-01-27 11:09] LABS: PLT ESTIMATE ADEQUATE (ADEQUATE); SICKLE CELLS FEW; TARGET CELLS FEW; TEAR DROP CELLS OCC
[2021-01-27 11:10] LABS: ANISOCYTOSIS MOD; OVALOCYTES FEW; POLYCHROMASIA SLIGHT
[2021-01-27 13:35] VITALS: BP 147/89
[2021-01-27] MEDS ORDERED: ENOXAPARIN 40 MG/0.4 ML SYRINGE. SQ SCH (21:00)
[2021-01-27] MEDS ORDERED: DOCUSATE SODIUM 100 MG CAPSULE. PO SCH (21:00)
--- NOTE | 2021-01-28 00:11 | EKG ---
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
[2021-01-28] MEDS ORDERED: AZITHROMYCIN 250 MG in IV NORMAL SALINE 250ML 250 ML IV SCH (09:00)
[2021-01-31] MEDS ORDERED: DOCU-153 PO (12:36)
[2021-01-31] MEDS ORDERED: OXYC10TA PO (12:36)
== END 2021-01-27 11:08 | disposition admitted as inpatient to this hospital (09) ==
LOC: ER 07:58
DX: D57.00 Hb-SS disease with crisis, unspecified (principal); M54.5 Low back pain; F17.200 Nicotine dependence, unspecified, uncomplicated
CPT/HCPCS: 36415; 71045; 80053; 82803; 83605; 83735; 83880; 84100; 84484; 85025; 85045; 93005; 96361; 96365; 96375; 96376; 99285; J0456; J0696; J1170; J3010; J3490; J7120

== ENCOUNTER → 2021-02-19 | Emergency (ER) | payer BC, MEDICARE ==
[~2021-02-19] VITALS: Ht 175.3 cm; Wt 81.8 kg
[~2021-02-19] MED LIST changes: +ALBU2.5V8 NEB; +DOXY100C2 PO; +GUAI100L12 PO; +IV NORMAL SALINE 1000ML BAG 1,000 ML IV ONE; +LACT1CAP19 PO; +MAG30ORA2 PO; +MORPHINE SULFATE 10 MG/ML VIAL. IV ONE; +POTA20TA40 PO
--- NOTE | 2021-02-19 22:51 | ED.ADGEN ---
Past Medical History Past Medical History: Sickle Cell Disease, Other Additional Past Medical Histor: Necrotic L hip bone, COVID Past Surgical History: Other Additional Past Surgical Histo: L HIP BONE GRAFT Smoking Status: Former Smoker Alcohol Use: None Drug Use: Marijuana General Adult EDM: Chief Complaint: LOWER BACK PAIN OR INJURY HPI: HPI: Patient is a 25-year-old male with past medical history of sickle cell disease who presents to the emergency room requesting a Covid test and complaining of sickle cell pain. Patient's been having upper and lower back pain which is typical for his sickle cell pain crisis. He was diagnosed with COVID-19 10 days ago and would like to have a repeat test done as he cannot return to work without it. He states he does have so we agreed shortness of breath when he walks. He denies any cough or fever. He has been taking all of his medications as prescribed. He has no new complaints. He denies any significant chest pain. Review of Systems: Review of Systems: Complete ROS is negative unless otherwise documented in HPI Current Medications: Current Medications Medications (Trade) Dose Ordered Sig/Glenis Start Time Stop Time Status Last Admin Dose Admin Morphine Sulfate (Morphine Sulfate) 5 mg 1X ONCE 02/19/21 23:00 02/19/21 23:01 DC 02/19/21 23:38 5 MG Sodium Chloride 1,000 ml @ 1,000 mls/hr 1X ONCE 02/19/21 23:00 02/19/21 23:59 DC 02/19/21 23:37 1,000 MLS/HR Allergies: Allergies: Allergies Coded Allergies Type Severity Reaction Last Updated Verified No Known Drug Allergies 11/04/20 No Physical Exam: PE: General: Awake, alert, NAD. Well Nourished, well hydrated. Cooperative HEENT: Atraumatic, EOMI, PERRL, airway patent, moist oral mucosa Neck: Supple, trachea midline Respiratory: CTA bilaterally, normal effort, no wheezing/crackles CV: RRR, no murmur, cap refill <2 GI: Soft, nondistended, nontender, no masses MSK: No obvious deformities Skin: Warm, dry, intact Neuro: A&O x3, speech NL, sensory and motor grossly intact, no focal deficits Psych: Normal affect, normal mood, not suicidal or homicidal Current Patient Data: Labs: Laboratory Tests Test 02/19/21 23:33 02/20/21 00:15 White Blood Count 6.2 x10^3/uL (4.0-11.0) Red Blood Count 3.29 x10^6/uL (4.30-5.70) L Hemoglobin 9.8 g/dL (13.0-17.5) L Hematocrit 26.9 % (39.0-53.0) L Mean Corpuscular Volume 82 fL (79-100) Mean Corpuscular Hemoglobin 30 pg (25-35) Mean Corpuscular Hemoglobin Concent 36 g/dL (31-37) Red Cell Distribution Width 25.3 % (11.5-14.5) H Platelet Count 336 x10^3/uL (140-400) Neutrophils (%) (Auto) 33 % (31-73) Lymphocytes (%) (Auto) 49 % (24-48) H Monocytes (%) (Auto) 15 % (0-9) H Eosinophils (%) (Auto) 2 % (0-3) Basophils (%) (Auto) 2 % (0-3) Neutrophils # (Auto) 2.0 x10^3/uL (1.8-7.7) Lymphocytes # (Auto) 3.0 x10^3/uL (1.0-4.8) Monocytes # (Auto) 0.9 x10^3/uL (0.0-1.1) Eosinophils # (Auto) 0.1 x10^3/uL (0.0-0.7) Basophils # (Auto) 0.1 x10^3/uL (0.0-0.2) Platelet Estimate Pending Sodium Level 139 mmol/L (136-145) Potassium Level 4.4 mmol/L (3.5-5.1) Chloride Level 104 mmol/L (98-107) Carbon Dioxide Level 27 mmol/L (21-32) Anion Gap 8 (6-14) Blood Urea Nitrogen 6 mg/dL (8-26) L Creatinine 0.8 mg/dL (0.7-1.3) Estimated GFR (Cockcroft-Gault) 145.0 Glucose Level 96 mg/dL (70-99) Calcium Level 8.9 mg/dL (8.5-10.1) SARS-CoV-2 Antigen (Rapid) Negative (NEGATIVE) Laboratory Tests 02/19/21 23:33 Laboratory Tests 02/19/21 23:33 Vital Signs: Vital Signs Date Time Temp Pulse Resp B/P (MAP) Pulse Ox O2 Delivery O2 Flow Rate FiO2 02/19/21 23:38 22 97 Room Air 02/19/21 21:56 99.1 81 123/75 (91) 99.1 EKG: EKG: [] Heart Score: C/O Chest Pain: N/A Risk Factors: Risk Factors: DM, Current or recent (<one month) smoker, HTN, HLP, family history of CAD, obesity. Risk Scores: Score 0 - 3: 2.5% MACE over next 6 weeks - Discharge Home Score 4 - 6: 20.3% MACE over next 6 weeks - Admit for Clinical Observation Score 7 - 10: 72.7% MACE over next 6 weeks - Early Invasive Strategies Radiology/Procedures: Radiology/Procedures: [] Course & Med Decision Making: Course & Med Decision Making Pertinent Labs and Imaging studies reviewed. (See chart for details) Patient is a 25-year-old male with a past medical history of sickle cell who presents to the Emergency Room complaining of sickle cell pain consistent with a sickle cell crisis. On exam, patient is well-appearing. Patient is having pain lower back and upper back pain. Patient does not have chest pain and will need a chest x-ray for shortness of breath. Patient does not have priapism, focal neurologic deficits, fever, hypoxia, hypotension. CBC, retic count, CMP, UA were ordered to evaluate for aplastic crisis and precipitating factors of a crisis including infection, acidosis, dehydration. Patient was given fluids and morphine for symptoms upon arrival. Work up was reviewed and reveals stable labs. On reevaluation, patient is feeling much better. Patient's test results and vitals while in the ED were fully reviewed and discussed with the patient. Patient is stable and at this time does not need admission to the hospital. We have discussed strict return precautions and the importance of following up with their Primary Care Physician. Patient stated understanding and was given an op portunity to ask any questions. Patient is in agreement with plan. Candelario Disclaimer: Candelario Disclaimer: This electronic medical record was generated, in whole or in part, using a voice recognition dictation system. Departure Departure Impression: Primary Impression: Sickle cell pain crisis Disposition: HOME / SELF CARE / HOMELESS Condition: STABLE Referrals: UNKNOWN PCP NAME (PCP) Patient Instructions: Sickle Cell Pain Crisis VICKY HURTADO MD Feb 19, 2021 22:51
--- NOTE | 2021-02-19 23:00 | RAD ---
Exam: Chest one view INDICATION: Shortness of breath TECHNIQUE: Frontal view of the chest Comparisons: 02/08/2021 FINDINGS: The cardiomediastinal silhouette and pulmonary vessels are within normal limits. The lung and pleural spaces are clear. IMPRESSION: No acute cardiopulmonary process. Electronically signed by: Man Lopez MD (02/19/2021 10:57 PM) SWEETIE
[2021-02-19 23:41] LABS: BASO # 0.1 x10^3/uL (0.0-0.2); BASO % 2 % (0-3); EOS # 0.1 x10^3/uL (0.0-0.7); EOS % 2 % (0-3); HEMATOCRIT 26.9 % (39.0-53.0); HEMOGLOBIN 9.8 g/dL (13.0-17.5); LYMPH % 49 % (24-48); MEAN CORPUSCULAR HEMOGLOBIN 30 pg (25-35); MEAN CORPUSCULAR HGB CONC 36 g/dL (31-37); MEAN CORPUSCULAR VOLUME 82 fL (79-100); MONO # 0.9 x10^3/uL (0.0-1.1); MONO % 15 % (0-9); NEUT % 33 % (31-73); PLATELET COUNT 336 x10^3/uL (140-400); RED BLOOD COUNT 3.29 x10^6/uL (4.30-5.70); RED CELL DISTRIBUTION WIDTH 25.3 % (11.5-14.5); WHITE BLOOD COUNT 6.2 x10^3/uL (4.0-11.0)
[2021-02-20 00:11] LABS: CALCIUM 8.9 mg/dL (8.5-10.1); CREATININE 0.8 mg/dL (0.7-1.3); POTASSIUM 4.4 mmol/L (3.5-5.1)
[2021-02-20 01:53] VITALS: BP 120/61
[2021-02-20 03:26] LABS: % BANDS 1 % (0-9); % BASOS 2 % (0-3); % LYMPHS 47 % (24-48); % MONOS 10 % (0-10); % SEGS 40 % (35-66); ANISOCYTOSIS MARKED; NUCLEATED RBC 8; PLT ESTIMATE ADEQUATE (ADEQUATE); POLYCHROMASIA MOD
[2021-02-20 03:27] LABS: SCHISTOCYTES FEW; SICKLE CELLS MANY; TARGET CELLS MOD
--- NOTE | 2021-02-20 16:04 | NUR ---
IP: Informed pt of negative COVID test. Pt verbalized understanding.
== END | disposition home or self-care (01) ==
LOC: ER 20:57
DX: D57.00 Hb-SS disease with crisis, unspecified (principal); Z20.822 Contact with and (suspected) exposure to COVID-19
CPT/HCPCS: 36415; 71045; 80048; 85007; 85025; 87426; 96361; 96374; 99285; J2270; J7030; U0003; U0005

== ENCOUNTER 2021-02-22 10:56 | Emergency (ER) | payer BC, MEDICARE ==
[~2021-02-22] VITALS: Ht 175.3 cm; Wt 82.0 kg
[~2021-02-22 10:56] MED LIST changes: -IV NORMAL SALINE 1000ML BAG 1,000 ML IV ONE; -MORPHINE SULFATE 10 MG/ML VIAL. IV ONE
[2021-02-22] MEDS ORDERED: HYDROmorphone 2 MG/ML VIAL IVP ONE ×3 (12:45→16:00)
[2021-02-22] MEDS ORDERED: diphenhydrAMINE 50 MG/ML VIAL IVP ONE (12:45)
[2021-02-22] MEDS ORDERED: ONDANSETRON PF 4 MG/2 ML VIAL. IVP ONE (12:45)
[2021-02-22 13:21] LABS: BASO # 0.2 x10^3/uL (0.0-0.2); BASO % 3 % (0-3); EOS # 0.1 x10^3/uL (0.0-0.7); EOS % 2 % (0-3); HEMATOCRIT 27.1 % (39.0-53.0); HEMOGLOBIN 9.5 g/dL (13.0-17.5); LYMPH # 2.4 x10^3/uL (1.0-4.8); LYMPH % 41 % (24-48); MEAN CORPUSCULAR HEMOGLOBIN 29 pg (25-35); MEAN CORPUSCULAR HGB CONC 35 g/dL (31-37); MEAN CORPUSCULAR VOLUME 84 fL (79-100); MONO # 1.3 x10^3/uL (0.0-1.1); MONO % 22 % (0-9); NEUT % 33 % (31-73); PLATELET COUNT 291 x10^3/uL (140-400); RED BLOOD COUNT 3.23 x10^6/uL (4.30-5.70); RED CELL DISTRIBUTION WIDTH 25.6 % (11.5-14.5)
[2021-02-22 13:22] LABS: CALCIUM 8.8 mg/dL (8.5-10.1); CREATININE 0.6 mg/dL (0.7-1.3); POTASSIUM 4.5 mmol/L (3.5-5.1)
[2021-02-22 13:27] LABS: ALBUMIN 4.1 g/dL (3.4-5.0); ALBUMIN/GLOBULIN RATIO 1.2 (1.0-1.7); TOTAL PROTEIN 7.5 g/dL (6.4-8.2)
[2021-02-22 14:50] LABS: % BASOS 2 % (0-3); % EOS 2 % (0-5); % LYMPHS 50 % (24-48); % MONOS 16 % (0-10); % SEGS 30 % (35-66); NUCLEATED RBC 7; PLT ESTIMATE ADEQUATE (ADEQUATE); POLYCHROMASIA PRESENT
[2021-02-22 14:51] LABS: ANISOCYTOSIS MOD; OVALOCYTES PRESENT; POIKILOCYTOSIS MARKED; SICKLE CELLS PRESENT; TARGET CELLS PRESENT
[2021-02-22 14:52] LABS: HOWELL-JOLLY BODIES PRESENT
--- NOTE | 2021-02-22 14:53 | EKG ---
[facility] [address] [place] [address] Test Date: 2021-02-22 Test Time: 13:33:10 Pat Name: RASHAUN CHURCH Department: Room: Gender: M [employer]: : 1995 Requested By: ROMY MEDEL Order Number: [id number] Reading MD: Andrae Montesinos Measurements Intervals [place] Rate: 73 P: 36 MT: 172 QRS: 56 QRSD: 90 T: 25 QT: 406 QTc: 451 Interpretive Statements SINUS RHYTHM Electronically Signed On 02-26-2021 12:32:52 CDT by Andrae Montesinos
[2021-02-22 15:13] VITALS: BP 105/58
--- NOTE | 2021-02-22 15:46 | PHYS DOC ---
Past Medical History Past Medical History: Sickle Cell Disease, Other Additional Past Medical Histor: Necrotic L hip bone, COVID Past Surgical History: Other Additional Past Surgical Histo: L HIP BONE GRAFT Smoking Status: Never Smoker Alcohol Use: None Drug Use: Marijuana General Adult EDM: Chief Complaint: PAIN CONTROL HPI: HPI: Patient is a 25 year old male with history of sickle cell presenting today complaining of pain 7 out of 10 to bilateral lower extremities due to his sickle cell. Patient said the pain has been present for 2 days. He states his oxycodone is not helping. Denies any fever, nausea, vomiting. He states he was diagnosed with COVID-19 on February 08, 2021 and tested negative 2 days ago. Review of Systems: Review of Systems: Constitutional: Denies fever or chills. [] Eyes: Denies change in visual acuity. [] HENT: Denies nasal congestion or sore throat. [] Respiratory: Denies cough or shortness of breath. [] Cardiovascular: Denies chest pain or edema. [] GI: Denies abdominal pain, nausea, vomiting, bloody stools or diarrhea. [] : Denies dysuria. [] Musculoskeletal: Reports bilateral lower extremity pain due to sickle cell, denies denies back pain Integument: Denies rash. [] Neurologic: Denies headache, focal weakness or sensory changes. [] Endocrine: Denies polyuria or polydipsia. [] Lymphatic: Denies swollen glands. [] Psychiatric: Denies depression or anxiety. [] Heart Score: C/O Chest Pain: N/A Risk Factors: Risk Factors: DM, Current or recent (<one month) smoker, HTN, HLP, family history of CAD, obesity. Risk Scores: Score 0 - 3: 2.5% MACE over next 6 weeks - Discharge Home Score 4 - 6: 20.3% MACE over next 6 weeks - Admit for Clinical Observation Score 7 - 10: 72.7% MACE over next 6 weeks - Early Invasive Strategies Current Medications: Current Medications Medications (Trade) Dose Ordered Sig/Glenis Start Time Stop Time Status Last Admin Dose Admin Diphenhydramine HCl (Benadryl) 25 mg 1X ONCE 02/22/21 12:45 02/22/21 12:46 DC 02/22/21 13:27 25 MG Hydromorphone HCl (Dilaudid) 1 mg 1X ONCE 02/22/21 14:15 02/22/21 14:16 DC 02/22/21 14:39 1 MG Ondansetron HCl (Zofran) 4 mg 1X ONCE 02/22/21 12:45 02/22/21 12:46 DC 02/22/21 13:27 4 MG Allergies: Allergies: Allergies Coded Allergies Type Severity Reaction Last Updated Verified No Known Drug Allergies 11/04/20 No Physical Exam: PE: Constitutional: Well developed, well nourished, no acute distress, non-toxic appearance. [] HENT: Normocephalic, atraumatic, bilateral external ears normal, oropharynx moist, no oral exudates, nose normal. [] Eyes: PERRLA, EOMI, conjunctiva normal, no discharge. [] Neck: Normal range of motion, no tenderness, supple, no stridor. [] Cardiovascular:Heart rate regular rhythm, no murmur [] Lungs & Thorax: Bilateral breath sounds clear to auscultation [] Abdomen: Bowel sounds normal, soft, no tenderness, no masses, no pulsatile masses. [] Skin: Warm, dry, no erythema, no rash. [] Back: No tenderness, no CVA tenderness. [] Extremities: No tenderness, no cyanosis, no clubbing, ROM intact, no edema. [] Neurologic: Alert and oriented X 3, normal motor function, normal sensory function, no focal deficits noted. [] Psychologic: Affect normal, judgement normal, mood normal. [] Current Patient Data: Labs: Laboratory Tests Test 02/22/21 12:55 White Blood Count 6.0 x10^3/uL (4.0-11.0) Red Blood Count 3.23 x10^6/uL (4.30-5.70) L Hemoglobin 9.5 g/dL (13.0-17.5) L Hematocrit 27.1 % (39.0-53.0) L Mean Corpuscular Volume 84 fL (79-100) Mean Corpuscular Hemoglobin 29 pg (25-35) Mean Corpuscular Hemoglobin Concent 35 g/dL (31-37) Red Cell Distribution Width 25.6 % (11.5-14.5) H Platelet Count 291 x10^3/uL (140-400) Neutrophils (%) (Auto) 33 % (31-73) Lymphocytes (%) (Auto) 41 % (24-48) Monocytes (%) (Auto) 22 % (0-9) H Eosinophils (%) (Auto) 2 % (0-3) Basophils (%) (Auto) 3 % (0-3) Neutrophils # (Auto) 2.0 x10^3/uL (1.8-7.7) Lymphocytes # (Auto) 2.4 x10^3/uL (1.0-4.8) Monocytes # (Auto) 1.3 x10^3/uL (0.0-1.1) H Eosinophils # (Auto) 0.1 x10^3/uL (0.0-0.7) Basophils # (Auto) 0.2 x10^3/uL (0.0-0.2) Segmented Neutrophils % 30 % (35-66) L Lymphocytes % 50 % (24-48) H Monocytes % 16 % (0-10) H Eosinophils % 2 % (0-5) Basophils % 2 % (0-3) Nucleated Red Blood Cells 7 Platelet Estimate Adequate (ADEQUATE) Giant Platelets Present Polychromasia Present Poikilocytosis Marked Anisocytosis Mod Sickle Cells Present Target Cells Present Ovalocytes Present Villaseñor-[place] Bodies Present Absolute Reticulocyte Count 0.148 x10^6/uL (0.020-0.120) Percent Reticulocyte Count 4.6 % (0.5-2.3) H Immature Reticulocyte Fraction 0.75 (0.20-0.60) H Sodium Level 142 mmol/L (136-145) Potassium Level 4.5 mmol/L (3.5-5.1) Chloride Level 105 mmol/L (98-107) Carbon Dioxide Level 28 mmol/L (21-32) Anion Gap 9 (6-14) Blood Urea Nitrogen 7 mg/dL (8-26) L Creatinine 0.6 mg/dL (0.7-1.3) L Estimated GFR (Cockcroft-Gault) 202.0 BUN/Creatinine Ratio 12 (6-20) Glucose Level 87 mg/dL (70-99) Calcium Level 8.8 mg/dL (8.5-10.1) Total Bilirubin 2.0 mg/dL (0.2-1.0) H Aspartate Amino Transferase (AST) 41 U/L (15-37) H Alanine Aminotransferase (ALT) 36 U/L (16-63) Alkaline Phosphatase 156 U/L (46-116) H Total Protein 7.5 g/dL (6.4-8.2) Albumin 4.1 g/dL (3.4-5.0) Albumin/Globulin Ratio 1.2 (1.0-1.7) Laboratory Tests 02/22/21 12:55 Laboratory Tests 02/22/21 12:55 Vital Signs: Vital Signs Date Time Temp Pulse Resp B/P (MAP) Pulse Ox O2 Delivery O2 Flow Rate FiO2 02/22/21 14:39 16 98 02/22/21 13:26 Room Air 02/22/21 12:00 98.5 69 121/76 (91) 98.5 EKG: EK interpreted by sinus rhythm heart rate 73 no STEMI [] Radiology/Procedures: Radiology/Procedures: [] Course & Med Decision Making: Course & Med Decision Making Pertinent Labs and Imaging studies reviewed. (See chart for details) This a 25-year-old male patient history of sickle cell presenting today complaining of lower extremity pain for 2 days. Patient reports pain is consistent with his sickle cell. CBC with a normal WBC, hemoglobin 9.5 with hematocrit of 27.1. Reticulocyte count is 0.148 this is slightly higher than the last previous labs done. Patient was given IV fluids, Dilaudid Benadryl and Zofran. He was offered admission. He moved back and forth between being admitted and going home and finally decided to go home stating he will be back after 23 February Candelario Disclaimer: Candelario Disclaimer: This electronic medical record was generated, in whole or in part, using a voice recognition dictation system. Departure Departure Impression: Primary Impression: Sickle cell anemia with pain Disposition: HOME / SELF CARE / HOMELESS Condition: STABLE Referrals: UNKNOWN PCP NAME (PCP) please follow up with your sickle cell clinic Patient Instructions: Sickle Cell Pain Crisis, [id number] Additional Instructions: Please follow up with your sickle cell clinic next week ROMY MEDEL APRN Feb 22, 2021 15:46
== END 2021-02-22 16:40 | disposition home or self-care (01) ==
LOC: ER 10:56
DX: D57.00 Hb-SS disease with crisis, unspecified (principal)
CPT/HCPCS: 36415; 80053; 85007; 85025; 85045; 93005; 96374; 96375; 96376; 99284; J1170; J1200; J2405

== ENCOUNTER 2021-02-24 02:28 | Emergency (ER) | payer BC, MEDICARE ==
[~2021-02-24] VITALS: Ht 175.3 cm; Wt 81.8 kg
[2021-02-24] MEDS ORDERED: IV NORMAL SALINE 1000ML BAG 1,000 ML IV ONE (04:30)
[2021-02-24 04:37] LABS: BASO % 1 % (0-3); EOS # 0.1 x10^3/uL (0.0-0.7); EOS % 1 % (0-3); HEMOGLOBIN 9.7 g/dL (13.0-17.5); LYMPH # 3.1 x10^3/uL (1.0-4.8); LYMPH % 36 % (24-48); MEAN CORPUSCULAR HEMOGLOBIN 30 pg (25-35); MEAN CORPUSCULAR HGB CONC 36 g/dL (31-37); MEAN CORPUSCULAR VOLUME 83 fL (79-100); MONO # 1.3 x10^3/uL (0.0-1.1); MONO % 16 % (0-9); NEUT % 47 % (31-73); PLATELET COUNT 300 x10^3/uL (140-400); RED BLOOD COUNT 3.24 x10^6/uL (4.30-5.70); RED CELL DISTRIBUTION WIDTH 25.4 % (11.5-14.5); WHITE BLOOD COUNT 8.6 x10^3/uL (4.0-11.0)
[2021-02-24 04:48] LABS: CALCIUM 8.6 mg/dL (8.5-10.1); CREATININE 0.7 mg/dL (0.7-1.3); GFR 169.1; POTASSIUM 4.2 mmol/L (3.5-5.1)
[2021-02-24] MEDS ORDERED: MORPHINE SULFATE 10 MG/ML VIAL. IV ONE (05:00)
[2021-02-24 05:50] VITALS: BP 98/60
--- NOTE | 2021-02-24 06:03 | ED.ADGEN ---
Past Medical History Past Medical History: Sickle Cell Disease, Other Additional Past Medical Histor: Necrotic L hip bone, COVID FEBRUARY 08, 2021 Past Surgical History: Other Additional Past Surgical Histo: L HIP BONE GRAFT Smoking Status: Never Smoker Alcohol Use: None Drug Use: Marijuana General Adult EDM: Chief Complaint: PAIN CONTROL HPI: HPI: Patient is a 25-year-old male well-known to this emergency room who presents to the emergency room complaining of sickle cell pain. He states this is typical for his normal pain. He has lower back pain and leg pain. He denies any new symptoms. Is not had any kind of fevers. Review of Systems: Review of Systems: Complete ROS is negative unless otherwise documented in HPI Current Medications: Current Medications Medications (Trade) Dose Ordered Sig/Glenis Start Time Stop Time Status Last Admin Dose Admin Morphine Sulfate (Morphine Sulfate) 5 mg 1X ONCE 02/24/21 05:00 02/24/21 05:01 DC 02/24/21 05:23 5 MG Sodium Chloride 1,000 ml @ 1,000 mls/hr 1X ONCE 02/24/21 04:30 02/24/21 05:29 DC 02/24/21 04:34 1,000 MLS/HR Allergies: Allergies: Allergies Coded Allergies Type Severity Reaction Last Updated Verified No Known Drug Allergies 11/04/20 No Physical Exam: PE: General: Awake, alert, NAD. Well Nourished, well hydrated. Cooperative HEENT: Atraumatic, EOMI, PERRL, airway patent, moist oral mucosa Neck: Supple, trachea midline Respiratory: CTA bilaterally, normal effort, no wheezing/crackles CV: RRR, no murmur, cap refill <2 GI: Soft, nondistended, nontender, no masses MSK: No obvious deformities Skin: Warm, dry, intact Neuro: A&O x3, speech NL, sensory and motor grossly intact, no focal deficits Psych: Normal affect, normal mood, not suicidal or homicidal Current Patient Data: Labs: Laboratory Tests Test 02/24/21 04:30 White Blood Count 8.6 x10^3/uL (4.0-11.0) Red Blood Count 3.24 x10^6/uL (4.30-5.70) L Hemoglobin 9.7 g/dL (13.0-17.5) L Hematocrit 27.0 % (39.0-53.0) L Mean Corpuscular Volume 83 fL (79-100) Mean Corpuscular Hemoglobin 30 pg (25-35) Mean Corpuscular Hemoglobin Concent 36 g/dL (31-37) Red Cell Distribution Width 25.4 % (11.5-14.5) H Platelet Count 300 x10^3/uL (140-400) Neutrophils (%) (Auto) 47 % (31-73) Lymphocytes (%) (Auto) 36 % (24-48) Monocytes (%) (Auto) 16 % (0-9) H Eosinophils (%) (Auto) 1 % (0-3) Basophils (%) (Auto) 1 % (0-3) Neutrophils # (Auto) 4.0 x10^3/uL (1.8-7.7) Lymphocytes # (Auto) 3.1 x10^3/uL (1.0-4.8) Monocytes # (Auto) 1.3 x10^3/uL (0.0-1.1) H Eosinophils # (Auto) 0.1 x10^3/uL (0.0-0.7) Basophils # (Auto) 0.0 x10^3/uL (0.0-0.2) Segmented Neutrophils % 29 % (35-66) L Band Neutrophils % 1 % (0-9) Lymphocytes % 61 % (24-48) H Monocytes % 6 % (0-10) Eosinophils % 1 % (0-5) Metamyelocytes % 1 % (0-0) H Myelocytes % 1 % (0-0) H Nucleated Red Blood Cells 5 Platelet Estimate Adequate (ADEQUATE) Giant Platelets Present Polychromasia Present Hypochromasia Present Poikilocytosis Present Anisocytosis Present Sickle Cells Present Target Cells Present Sodium Level 142 mmol/L (136-145) Potassium Level 4.2 mmol/L (3.5-5.1) Chloride Level 107 mmol/L (98-107) Carbon Dioxide Level 26 mmol/L (21-32) Anion Gap 9 (6-14) Blood Urea Nitrogen 7 mg/dL (8-26) L Creatinine 0.7 mg/dL (0.7-1.3) Estimated GFR (Cockcroft-Gault) 169.1 Glucose Level 91 mg/dL (70-99) Calcium Level 8.6 mg/dL (8.5-10.1) Laboratory Tests 02/24/21 04:30 Laboratory Tests 02/24/21 04:30 Vital Signs: Vital Signs Date Time Temp Pulse Resp B/P (MAP) Pulse Ox O2 Delivery O2 Flow Rate FiO2 02/24/21 05:50 73 18 98/60 (73) 97 Room Air 02/24/21 03:50 98.7 98.7 EKG: EKG: [] Heart Score: C/O Chest Pain: N/A Risk Factors: Risk Factors: DM, Current or recent (<one month) smoker, HTN, HLP, family history of CAD, obesity. Risk Scores: Score 0 - 3: 2.5% MACE over next 6 weeks - Discharge Home Score 4 - 6: 20.3% MACE over next 6 weeks - Admit for Clinical Observation Score 7 - 10: 72.7% MACE over next 6 weeks - Early Invasive Strategies Radiology/Procedures: Radiology/Procedures: [] Course & Med Decision Making: Course & Med Decision Making Pertinent Labs and Imaging studies reviewed. (See chart for details) Patient is a 25-year-old male with a past medical history of sickle cell who presents to the Emergency Room complaining of sickle cell pain consistent with a sickle cell crisis. On exam, patient is well-appearing with normal vitals. Patient is having pain back pain and leg pain. Patient does not have chest pain and will not need a chest x-ray and EKG. Patient does not have priapism, focal neurologic deficits, fever, hypoxia, hypotension. CBC, retic count, CMP, UA were ordered to evaluate for aplastic crisis and precipitating factors of a crisis including infection, acidosis, dehydration. Patient was given morphine for symptoms upon arrival. Patient has had 19 Emergency Room visits for sickle cell crisis in the last year. Work up was reviewed and reveals normal labs. On reevaluation, patient is feeling better would like to go home. Patient's test results and vitals while in the ED were fully reviewed and discussed with the patient. Patient is stable and at this time does not need admission to the hospital. We have discussed strict return precautions and the importance of following up with their Primary Care Physician. Patient stated understanding and was given an opportunity to ask any questions. Patient is in agreement with plan. Candelario Disclaimer: Candelario Disclaimer: This electronic medical record was generated, in whole or in part, using a voice recognition dictation system. Departure Departure Impression: Primary Impression: Sickle cell pain crisis Disposition: 01 HOME / SELF CARE / HOMELESS Condition: STABLE Referrals: UNKNOWN PCP NAME (PCP) Patient Instructions: Sickle Cell Pain Crisis VICKY HURTADO MD Feb 24, 2021 06:03
[2021-02-24 09:25] LABS: % BANDS 1 % (0-9); % EOS 1 % (0-5); % LYMPHS 61 % (24-48); % METAS 1 % (0-0); % MONOS 6 % (0-10); % MYELOS 1 % (0-0); % SEGS 29 % (35-66); NUCLEATED RBC 5; PLT ESTIMATE ADEQUATE (ADEQUATE)
[2021-02-24 09:28] LABS: ANISOCYTOSIS PRESENT; HYPOCHROMIA PRESENT; POIKILOCYTOSIS PRESENT; POLYCHROMASIA PRESENT; SICKLE CELLS PRESENT; TARGET CELLS PRESENT
== END 2021-02-24 06:13 | disposition home or self-care (01) ==
LOC: ER 02:28
DX: D57.00 Hb-SS disease with crisis, unspecified (principal); M54.5 Low back pain
CPT/HCPCS: 36415; 80048; 85007; 85025; 96361; 96374; 99285; J2270; J7030

== ENCOUNTER 2021-03-04 12:06 | Emergency (ER) | payer BC, MEDICARE ==
[~2021-03-04] VITALS: Ht 175.3 cm; Wt 81.8 kg
[2021-03-04] MEDS ORDERED: IV NORMAL SALINE 1000ML BAG 1,000 ML IV ONE (13:30)
[2021-03-04] MEDS ORDERED: MORPHINE SULFATE 10 MG/ML VIAL. IV ONE ×3 (13:30→17:15)
[2021-03-04 13:57] LABS: BASO % 1 % (0-3); EOS # 0.1 x10^3/uL (0.0-0.7); EOS % 2 % (0-3); HEMATOCRIT 28.9 % (39.0-53.0); HEMOGLOBIN 10.2 g/dL (13.0-17.5); LYMPH # 2.1 x10^3/uL (1.0-4.8); LYMPH % 36 % (24-48); MEAN CORPUSCULAR HEMOGLOBIN 30 pg (25-35); MEAN CORPUSCULAR HGB CONC 35 g/dL (31-37); MEAN CORPUSCULAR VOLUME 84 fL (79-100); MONO % 17 % (0-9); NEUT # 2.6 x10^3/uL (1.8-7.7); NEUT % 45 % (31-73); PLATELET COUNT 260 x10^3/uL (140-400); RED BLOOD COUNT 3.43 x10^6/uL (4.30-5.70); RED CELL DISTRIBUTION WIDTH 23.9 % (11.5-14.5); WHITE BLOOD COUNT 5.8 x10^3/uL (4.0-11.0)
[2021-03-04 14:05] LABS: CREATININE 0.6 mg/dL (0.7-1.3); POTASSIUM 4.3 mmol/L (3.5-5.1)
[2021-03-04 14:11] LABS: ALBUMIN 4.2 g/dL (3.4-5.0); ALBUMIN/GLOBULIN RATIO 1.1 (1.0-1.7); TOTAL BILIRUBIN 1.9 mg/dL (0.2-1.0)
--- NOTE | 2021-03-04 14:20 | ED.ADGEN ---
Past Medical History Past Medical History: Sickle Cell Disease, Other Additional Past Medical Histor: Necrotic L hip bone, COVID FEBRUARY 08, 2021 Past Surgical History: Other Additional Past Surgical Histo: L HIP BONE GRAFT Smoking Status: Never Smoker Alcohol Use: None Drug Use: Marijuana General Adult EDM: Chief Complaint: PAIN CONTROL HPI: HPI: Patient is a 25-year-old male with past medical history of sickle cell disease who presents to the emergency room complaining of back and leg pain. This is where patient typically gets his pain during sickle cell crisis. Patient states he has been taking his home medication but it has not helped over the last couple of days. Patient states he has been working a lot of overtime at work to try to save up money for his baby but he thinks it is catching up with him. He denies any kind of fever, cough, shortness of breath, chills, sweats, nausea, vomiting. He has been taking his medications. Review of Systems: Review of Systems: Complete ROS is negative unless otherwise documented in HPI Current Medications: Current Medications Medications (Trade) Dose Ordered Sig/Glenis Start Time Stop Time Status Last Admin Dose Admin Diphenhydramine HCl (Benadryl) 25 mg 1X ONCE 03/04/21 16:45 03/04/21 16:46 DC 03/04/21 16:37 25 MG Morphine Sulfate (Morphine Sulfate) 5 mg 1X ONCE 03/04/21 15:15 03/04/21 15:16 DC 03/04/21 16:28 5 MG Sodium Chloride 1,000 ml @ 1,000 mls/hr 1X ONCE 03/04/21 13:30 03/04/21 14:29 DC 03/04/21 13:50 1,000 MLS/HR Allergies: Allergies: Allergies Coded Allergies Type Severity Reaction Last Updated Verified No Known Drug Allergies 11/04/20 No Physical Exam: PE: General: Awake, alert, NAD. Well Nourished, well hydrated. Cooperative HEENT: Atraumatic, EOMI, PERRL, airway patent, moist oral mucosa Neck: Supple, trachea midline Respiratory: CTA bilaterally, normal effort, no wheezing/crackles CV: RRR, no murmur, cap refill <2 GI: Soft, nondistended, nontender, no masses MSK: No obvious deformities Skin: Warm, dry, intact Neuro: A&O x3, speech NL, sensory and motor grossly intact, no focal deficits Psych: Normal affect, normal mood, not suicidal or homicidal Current Patient Data: Labs: Laboratory Tests Test 03/04/21 13:46 White Blood Count 5.8 x10^3/uL (4.0-11.0) Red Blood Count 3.43 x10^6/uL (4.30-5.70) L Hemoglobin 10.2 g/dL (13.0-17.5) L Hematocrit 28.9 % (39.0-53.0) L Mean Corpuscular Volume 84 fL (79-100) Mean Corpuscular Hemoglobin 30 pg (25-35) Mean Corpuscular Hemoglobin Concent 35 g/dL (31-37) Red Cell Distribution Width 23.9 % (11.5-14.5) H Platelet Count 260 x10^3/uL (140-400) Neutrophils (%) (Auto) 45 % (31-73) Lymphocytes (%) (Auto) 36 % (24-48) Monocytes (%) (Auto) 17 % (0-9) H Eosinophils (%) (Auto) 2 % (0-3) Basophils (%) (Auto) 1 % (0-3) Neutrophils # (Auto) 2.6 x10^3/uL (1.8-7.7) Lymphocytes # (Auto) 2.1 x10^3/uL (1.0-4.8) Monocytes # (Auto) 1.0 x10^3/uL (0.0-1.1) Eosinophils # (Auto) 0.1 x10^3/uL (0.0-0.7) Basophils # (Auto) 0.0 x10^3/uL (0.0-0.2) Segmented Neutrophils % 55 % (35-66) Band Neutrophils % 1 % (0-9) Lymphocytes % 30 % (24-48) Monocytes % 13 % (0-10) H Eosinophils % 1 % (0-5) Nucleated Red Blood Cells 2 Platelet Estimate Adequate (ADEQUATE) Giant Platelets Few Polychromasia Mod Anisocytosis Mod Sickle Cells Many Target Cells Mod Villaseñor-Alvin Bodies Present Sodium Level 141 mmol/L (136-145) Potassium Level 4.3 mmol/L (3.5-5.1) Chloride Level 105 mmol/L (98-107) Carbon Dioxide Level 26 mmol/L (21-32) Anion Gap 10 (6-14) Blood Urea Nitrogen 6 mg/dL (8-26) L Creatinine 0.6 mg/dL (0.7-1.3) L Estimated GFR (Cockcroft-Gault) 202.0 BUN/Creatinine Ratio 10 (6-20) Glucose Level 93 mg/dL (70-99) Calcium Level 9.0 mg/dL (8.5-10.1) Total Bilirubin 1.9 mg/dL (0.2-1.0) H Aspartate Amino Transferase (AST) 120 U/L (15-37) H Alanine Aminotransferase (ALT) 145 U/L (16-63) H Alkaline Phosphatase 143 U/L (46-116) H Total Protein 8.0 g/dL (6.4-8.2) Albumin 4.2 g/dL (3.4-5.0) Albumin/Globulin Ratio 1.1 (1.0-1.7) Laboratory Tests 03/04/21 13:46 Laboratory Tests 03/04/21 13:46 Vital Signs: Vital Signs Date Time Temp Pulse Resp B/P (MAP) Pulse Ox O2 Delivery O2 Flow Rate FiO2 03/04/21 16:28 16 99 Room Air 03/04/21 13:30 98.2 76 98/60 (73) 98.2 EKG: EKG: [] Heart Score: C/O Chest Pain: N/A Risk Factors: Risk Factors: DM, Current or recent (<one month) smoker, HTN, HLP, family history of CAD, obesity. Risk Scores: Score 0 - 3: 2.5% MACE over next 6 weeks - Discharge Home Score 4 - 6: 20.3% MACE over next 6 weeks - Admit for Clinical Observation Score 7 - 10: 72.7% MACE over next 6 weeks - Early Invasive Strategies Radiology/Procedures: Radiology/Procedures: [] Course & Med Decision Making: Course & Med Decision Making Pertinent Labs and Imaging studies reviewed. (See chart for details) Patient is a [id number] male with a past medical history of sickle cell who presents to the Emergency Room complaining of sickle cell pain consistent with a sickle cell crisis. On exam, patient is well-appearing with normal vitals. Patient is having pain back and leg pain. Patient is not have chest pain and will not need a chest x-ray and EKG. Patient does not have priapism, focal neurologic deficits, fever, hypoxia, hypotension. CBC, retic count, CMP, UA were ordered to evaluate for aplastic crisis and precipitating factors of a crisis including infection, acidosis, dehydration. Patient was given morphine for symptoms upon arrival. On reevaluation, he is feeling better. Lab work is normal. Patient's test results and vitals while in the ED were fully reviewed and discussed with the patient. Patient is stable and at this time does not need admission to the hospital. We have discussed strict return precautions and the importance of following up with their Primary Care Physician. Patient stated understanding and was given an opportunity to ask any questions. Patient is in agreement with plan. Candelario Disclaimer: Candelario Disclaimer: This electronic medical record was generated, in whole or in part, using a voice recognition dictation system. Departure Departure Impression: Primary Impression: Sickle cell pain crisis Disposition: HOME / SELF CARE / HOMELESS Condition: STABLE Referrals: ANNA LE MD (PCP) Patient Instructions: Sickle Cell Pain Crisis VICKY HURTADO MD Mar 04, 2021 14:20
[2021-03-04 15:06] LABS: % BANDS 1 % (0-9); % EOS 1 % (0-5); % LYMPHS 30 % (24-48); % MONOS 13 % (0-10); % SEGS 55 % (35-66); NUCLEATED RBC 2
[2021-03-04 15:08] LABS: ANISOCYTOSIS MOD; HOWELL-JOLLY BODIES PRESENT; PLT ESTIMATE ADEQUATE (ADEQUATE); POLYCHROMASIA MOD; SICKLE CELLS MANY; TARGET CELLS MOD
[2021-03-04] MEDS ORDERED: diphenhydrAMINE HCL 25 MG CAPSULE PO ONE (16:45)
[2021-03-04 16:54] VITALS: BP 148/65
[2021-03-08] MEDS ORDERED: OXYC10TA PO (08:28)
== END 2021-03-04 17:28 | disposition home or self-care (01) ==
LOC: ER 12:06
DX: D57.00 Hb-SS disease with crisis, unspecified (principal)
CPT/HCPCS: 36415; 80053; 85007; 85025; 96361; 96374; 96376; 99285; J2270; J7030; Q0163; 96375

== ENCOUNTER 2021-03-26 21:49 | Emergency (ER) | payer BC, MEDICARE ==
[~2021-03-26] VITALS: Ht 175.3 cm; Wt 81.8 kg
[~2021-03-26 21:49] MED LIST changes: +AMOX1TAB11 PO; +DOCU-148 PO; -DOCU-153 PO; -DOXY100C2 PO; +DOXY100C3 PO; +OXYC5TAB4 PO
[2021-03-26 22:44] VITALS: BP 135/90
[2021-03-26] MEDS ORDERED: HYDROmorphone 2 MG/ML VIAL IVP ONE (22:45)
[2021-03-26] MEDS ORDERED: IV RINGERS,LACTATED 500ML 500 ML IV ONE (22:45)
[2021-03-26] MEDS ORDERED: KETOROLAC 15 MG/ML VIAL. IVP ONE (22:45)
--- NOTE | 2021-03-26 22:52 | ED.ADGEN ---
Past Medical History Past Medical History: Sickle Cell Disease, Other Additional Past Medical Histor: Necrotic L hip bone, COVID FEBRUARY 08, 2021 Past Surgical History: Other Additional Past Surgical Histo: L HIP BONE GRAFT Smoking Status: Never Smoker Alcohol Use: None Drug Use: Marijuana General Adult EDM: Chief Complaint: OTHER COMPLAINTS HPI: HPI: Patient is a 25 year old male coming in for body pain. Patient states he is having some cell crisis presents the pain is mostly in his upper or lower back is. Throughout his body. Patient took one of his oxycodones about 5 hours prior to arrival. Was recently increased on his chronic pain dose to 15 mg tablets of oxycodone. Patient states he has had some shortness of breath and chest pain but denies any cough. Was recently diagnosed with Covid about 2 months ago. Denies any vomiting or diarrhea. Review of Systems: Review of Systems: All other systems within normal limits except for as noted in the HPI Current Medications: Current Medications Medications (Trade) Dose Ordered Sig/Glenis Start Time Stop Time Status Last Admin Dose Admin Hydromorphone HCl (Dilaudid) 2 mg 1X ONCE 03/26/21 22:45 03/26/21 22:46 DC 03/26/21 23:32 2 MG Ketorolac Tromethamine (Toradol 15mg Vial) 15 mg 1X ONCE 03/26/21 22:45 03/26/21 22:46 DC 03/26/21 23:33 15 MG Ringer's Solution 500 ml @ 500 mls/hr 1X ONCE 03/26/21 22:45 03/26/21 23:44 DC 03/27/21 00:00 500 MLS/HR Allergies: Allergies: Allergies Coded Allergies Type Severity Reaction Last Updated Verified No Known Drug Allergies 11/04/20 No Physical Exam: PE: Constitutional: Well developed, well nourished, moderate acute distress, non- toxic appearance. [] HENT: Normocephalic, atraumatic, bilateral external ears normal, nose normal. [] Eyes: PERRLA, conjunctiva normal, no discharge. [] Neck: No rigidity, supple, no stridor. [] Cardiovascular: Regular rate and rhythm, brisk cap refill [] Lungs & Thorax: Non labored symmetric respirations, no tachypnea or respiratory distress [] Abdomen: Soft, nondistended. Skin: Warm, dry, no erythema, no rash. [] Back: Unremarkable Extremities: No deformities, range of motion grossly intact, no lower extremity edema [] Neurologic: Alert and oriented X 3, no focal deficits noted. [] Psychologic: Affect normal, judgement normal, mood normal. [] Current Patient Data: Labs: Laboratory Tests Test 03/26/21 23:00 03/26/21 23:20 Urine Collection Type Unknown Urine Color Yellow Urine Clarity Clear Urine pH 7.5 (<5.0-8.0) Urine Specific Axson 1.010 (1.000-1.030) Urine Protein Negative mg/dL (NEG-TRACE) Urine Glucose (UA) Negative mg/dL (NEG) Urine Ketones (Stick) Negative mg/dL (NEG) Urine Blood Negative (NEG) Urine Nitrite Negative (NEG) Urine Bilirubin Negative (NEG) Urine Urobilinogen Dipstick 1.0 mg/dL (0.2 mg/dL) Urine Leukocyte Esterase Negative (NEG) Urine RBC 0 /HPF (0-2) Urine WBC Rare /HPF (0-4) Urine Squamous Epithelial Cells Few /LPF Urine Bacteria 0 /HPF (0-FEW) Urine Mucus Slight /LPF White Blood Count 13.2 x10^3/uL (4.0-11.0) H Red Blood Count 3.48 x10^6/uL (4.30-5.70) L Hemoglobin 10.0 g/dL (13.0-17.5) L Hematocrit 28.6 % (39.0-53.0) L Mean Corpuscular Volume 83 fL (79-100) Mean Corpuscular Hemoglobin 29 pg (25-35) Mean Corpuscular Hemoglobin Concent 35 g/dL (31-37) Red Cell Distribution Width 24.9 % (11.5-14.5) H Platelet Count 533 x10^3/uL (140-400) H Neutrophils (%) (Auto) 70 % (31-73) Lymphocytes (%) (Auto) 20 % (24-48) L Monocytes (%) (Auto) 8 % (0-9) Eosinophils (%) (Auto) 0 % (0-3) Basophils (%) (Auto) 1 % (0-3) Neutrophils # (Auto) 9.3 x10^3/uL (1.8-7.7) H Lymphocytes # (Auto) 2.7 x10^3/uL (1.0-4.8) Monocytes # (Auto) 1.0 x10^3/uL (0.0-1.1) Eosinophils # (Auto) 0.0 x10^3/uL (0.0-0.7) Basophils # (Auto) 0.2 x10^3/uL (0.0-0.2) Platelet Estimate Pending Absolute Reticulocyte Count 0.104 x10^6/uL (0.020-0.120) Percent Reticulocyte Count 3.0 % (0.5-2.3) H Immature Reticulocyte Fraction 0.63 (0.20-0.60) H Sodium Level 136 mmol/L (136-145) Potassium Level 4.1 mmol/L (3.5-5.1) Chloride Level 101 mmol/L (98-107) Carbon Dioxide Level 27 mmol/L (21-32) Anion Gap 8 (6-14) Blood Urea Nitrogen 4 mg/dL (8-26) L Creatinine 0.7 mg/dL (0.7-1.3) Estimated GFR (Cockcroft-Gault) 169.1 BUN/Creatinine Ratio 6 (6-20) Glucose Level 117 mg/dL (70-99) H Lactic Acid Level 0.9 mmol/L (0.4-2.0) Calcium Level 9.2 mg/dL (8.5-10.1) Phosphorus Level 3.8 mg/dL (2.6-4.7) Magnesium Level 2.0 mg/dL (1.8-2.4) Total Bilirubin 1.6 mg/dL (0.2-1.0) H Aspartate Amino Transferase (AST) 54 U/L (15-37) H Alanine Aminotransferase (ALT) 54 U/L (16-63) Alkaline Phosphatase 225 U/L (46-116) H Troponin I Quantitative < 0.017 ng/mL (0.000-0.055) HQ-Lbu-K-Type Natriuretic Peptide 17 pg/mL (0-124) Total Protein 7.9 g/dL (6.4-8.2) Albumin 4.0 g/dL (3.4-5.0) Albumin/Globulin Ratio 1.0 (1.0-1.7) Laboratory Tests 03/26/21 23:20 Laboratory Tests 03/26/21 23:20 Vital Signs: Vital Signs Date Time Temp Pulse Resp B/P (MAP) Pulse Ox O2 Delivery O2 Flow Rate FiO2 03/26/21 23:32 16 96 03/26/21 22:44 98.8 84 135/90 (97) Room Air 98.8 EKG: EKG: Sinus rhythm, heart rate 75 bpm, normal axis, no ST elevation or depression. No ectopy. [] Heart Score: C/O Chest Pain: Yes HEART Score for Chest Pain: HEART Score for Chest Pain Response (Comments) Value History Slighlty/Non-Suspicious 0 ECG Normal 0 Age < 45 0 Risk Factors No Risk Factors 0 Troponin < Normal Limit 0 Total 0 Risk Factors: Risk Factors: DM, Current or recent (<one month) smoker, HTN, HLP, family history of CAD, obesity. Risk Scores: Score 0 - 3: 2.5% MACE over next 6 weeks - Discharge Home Score 4 - 6: 20.3% MACE over next 6 weeks - Admit for Clinical Observation Score 7 - 10: 72.7% MACE over next 6 weeks - Early Invasive Strategies Radiology/Procedures: Radiology/Procedures: [][facility] [address] [place] [address] IMAGING REPORT Signed PATIENT: RASHAUN CHURCH EACCOUNT: [id number] : 1995 LOCATION: ER AGE: 25 SEX: M EXAM STATUS: REG ER ORD. PHYSICIAN: LEE ANN PINA MD REASON: chest pain, sickle cell PROCEDURE: CHEST AP ONLY EXAM: CHEST ONE VIEW. HISTORY: Chest pain, sickle cell disease. COMPARISON: 03/11/2021. FINDINGS: A frontal view of the chest is obtained. There are no confluent infiltrates. There is no pneumothorax or pleural effusion. The heart is mildly enlarged. IMPRESSION: 1. Mild cardiomegaly. Resolution of previously noted mild infiltrates. Electronically signed by: Mukesh Salas MD (03/26/2021 11:50 PM) [facility] DICTATED and SIGNED BY: ARA SALAS MD DATE: 03/26/21 [id number] Course & Med Decision Making: Course & Med Decision Making Pertinent Labs and Imaging studies reviewed. (See chart for details) Patient has a baseline. Patient's pain improved. Discussed admission for further pain management versus discharge. Patient states that he thinks he can manage his pain at home diabetes under control. [] Dragon Disclaimer: Dragon Disclaimer: This electronic medical record was generated, in whole or in part, using a voice recognition dictation system. Departure Departure Impression: Primary Impression: Sickle cell pain crisis Disposition: 01 HOME / SELF CARE / HOMELESS Condition: IMPROVED Referrals: ANNA LE MD (PCP) Patient Instructions: Sickle Cell Pain Crisis LEE ANN PINA MD Mar 26, 2021 22:52
[2021-03-26 23:29] LABS: BILIRUBIN,URINE NEGATIVE (NEG); CLARITY,URINE CLEAR; COLOR,URINE YELLOW; NITRITE,URINE NEGATIVE (NEG); PH,URINE 7.5 (<5.0-8.0); PROTEIN,URINE NEGATIVE (NEG-TRACE)
[2021-03-26 23:34] LABS: BASO # 0.2 x10^3/uL (0.0-0.2); BASO % 1 % (0-3); EOS % 0 % (0-3); HEMATOCRIT 28.6 % (39.0-53.0); LYMPH # 2.7 x10^3/uL (1.0-4.8); LYMPH % 20 % (24-48); MEAN CORPUSCULAR HEMOGLOBIN 29 pg (25-35); MEAN CORPUSCULAR HGB CONC 35 g/dL (31-37); MEAN CORPUSCULAR VOLUME 83 fL (79-100); MONO % 8 % (0-9); NEUT # 9.3 x10^3/uL (1.8-7.7); NEUT % 70 % (31-73); PLATELET COUNT 533 x10^3/uL (140-400); RED BLOOD COUNT 3.46 x10^6/uL (4.30-5.70); RED CELL DISTRIBUTION WIDTH 24.9 % (11.5-14.5); WHITE BLOOD COUNT 13.2 x10^3/uL (4.0-11.0)
[2021-03-26 23:43] LABS: CALCIUM 9.2 mg/dL (8.5-10.1); CREATININE 0.7 mg/dL (0.7-1.3); GFR 169.1; POTASSIUM 4.1 mmol/L (3.5-5.1)
[2021-03-26 23:45] LABS: BACTERIA,URINE 0 /HPF (0-FEW); RBC,URINE 0 /HPF (0-2); WBC,URINE RARE /HPF (0-4)
[2021-03-26 23:49] LABS: PHOSPHORUS 3.8 mg/dL (2.6-4.7); TOTAL BILIRUBIN 1.6 mg/dL (0.2-1.0); TOTAL PROTEIN 7.9 g/dL (6.4-8.2)
--- NOTE | 2021-03-26 23:53 | RAD ---
EXAM: CHEST ONE VIEW. HISTORY: Chest pain, sickle cell disease. COMPARISON: 03/11/2021. FINDINGS: A frontal view of the chest is obtained. There are no confluent infiltrates. There is no pneumothorax or pleural effusion. The heart is mildly enlarged. IMPRESSION: 1. Mild cardiomegaly. Resolution of previously noted mild infiltrates. Electronically signed by: Mukesh Salas MD (03/26/2021 11:50 PM) [facility]
[2021-03-27 00:18] LABS: % BANDS 1 % (0-9); % LYMPHS 16 % (24-48); % MONOS 8 % (0-10); % SEGS 75 % (35-66); NUCLEATED RBC 1; PLT ESTIMATE INCREASED (ADEQUATE)
[2021-03-27 00:19] LABS: ANISOCYTOSIS MOD; HYPOCHROMIA SLIGHT; POIKILOCYTOSIS MARKED; POLYCHROMASIA SLIGHT; SICKLE CELLS OCC
[2021-03-27 00:20] LABS: OVALOCYTES FEW; TARGET CELLS OCC
[2021-03-27] MEDS ORDERED: fentaNYL PF VIAL 100 MCG/2 ML VIAL IVP ONE (00:30)
--- NOTE | 2021-03-27 01:32 | EKG ---
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
== END 2021-03-27 00:52 | disposition home or self-care (01) ==
LOC: ER 21:49
DX: D57.00 Hb-SS disease with crisis, unspecified (principal)
CPT/HCPCS: 36415; 71045; 80053; 81001; 83605; 83735; 83880; 84100; 84484; 85007; 85025; 85045; 93005; 96361; 96374; 96375; 99285; J1170; J1885; J3010; J7120

== ENCOUNTER 2021-04-01 00:24 | Emergency (ER) | payer BC, MEDICARE ==
[~2021-04-01] VITALS: Ht 175.3 cm; Wt 80.0 kg
[2021-04-01 01:38] VITALS: BP 133/66
[2021-04-01] MEDS ORDERED: HYDROmorphone 2 MG/ML VIAL IM ONE (02:15)
--- NOTE | 2021-04-01 02:15 | PHYS DOC ---
Past Medical History Past Medical History: Sickle Cell Disease, Other Additional Past Medical Histor: Necrotic L hip bone, COVID FEBRUARY 08, 2021 Past Surgical History: Other Additional Past Surgical Histo: L HIP BONE GRAFT Smoking Status: Never Smoker Alcohol Use: None Drug Use: None, Marijuana General Adult EDM: Chief Complaint: BACK PAIN - NO INJURY Problems: (1) Chronic pain syndrome (2) Sickle cell anemia with pain HPI: HPI: 25-year-old male with sickle cell anemia presents the emergency department complaining of back pain, hip pain which is typical for his sickle cell pain crisis. He gets his sickle cell care at in the clinic. He denies any other complaints. The patient denies nausea, vomiting, fever, chills, chest pain, shortness of breath, abdominal pain, urinary symptoms, cough, recent trauma, or any other complaints. He is requesting IV medication. Review of Systems: Review of Systems: Review of systems is otherwise negative except what is mentioned in the HPI. Heart Score: C/O Chest Pain: No Family History: Family History: Noncontributory Current Medications: My Orders - NICKIE PACKER DO Procedure Category Date Status Time Hydromorphone PHA 04/01/21 Logged (Dilaudid) 02:15 Allergies: Allergies: Allergies Coded Allergies Type Severity Reaction Last Updated Verified No Known Drug Allergies 11/04/20 No Physical Exam: PE: General: No acute distress. HEENT: Normocephalic, Normal hearing. Visual acuity grossly intact. Neck: Supple, Full range of motion without tenderness. Respiratory: Airway intact, normal phonation, vocalizing. No signs of accessory muscle use or respiratory distress. Cardiovascular: Normal rate, Extremities appear well perfused. Musculoskeletal: Normal range of motion. No deformity. Ambulatory. Back: No CT or L-spine tenderness Integumentary: No pallor, No jaundice. Neurologic: Alert, Oriented. Moves all extremities independently. Psychiatric: Cooperative Current Patient Data: Vital Signs: Vital Signs Date Time Temp Pulse Resp B/P (MAP) Pulse Ox O2 Delivery O2 Flow Rate FiO2 04/01/21 01:38 98.6 92 18 133/66 (97) 97 Room Air 98.6 Course & Med Decision Making: Course & Med Decision Making At this time the patient appears to be at baseline, he has a long history of sickle cell pain crisis requiring pain medication in the emergency department. There is no indication to start an IV. We will give him IM Dilaudid and refer him back to his outpatient sickle cell clinic for further treatment of his sickle cell disease. Departure Departure Impression: Primary Impression: Sickle cell pain crisis Disposition: HOME / SELF CARE / HOMELESS Condition: STABLE Referrals: ANNA LE MD (PCP) Patient Instructions: Sickle Cell Pain Crisis, [id number] Additional Instructions: You were seen in the emergency department and your health condition was deemed not to require admission to the hospital. It is important to realize that we can only evaluate you during the time that you are in her department. Occasionally health conditions can worsen upon leaving the emergency department. If this were to happen, please return to and allow us the opportunity to reevaluate you. It is a pleasure to take care of your health needs. Return to the ER if your symptoms worsen, do not improve, or if you develop additional symptoms that are concerning to you. Please follow-up with your sickle cell clinic at for further pain medication NICKIE PACKER DO Apr 01, 2021 02:15
== END 2021-04-01 02:40 | disposition home or self-care (01) ==
LOC: ER 00:24
DX: D57.00 Hb-SS disease with crisis, unspecified (principal); G89.4 Chronic pain syndrome
CPT/HCPCS: 96372; 99283; J1170

== ENCOUNTER 2021-04-10 15:50 | Emergency (ER) | payer BC, MEDICARE ==
[~2021-04-10] VITALS: Ht 182.9 cm; Wt 86.0 kg
[2021-04-10] MEDS ORDERED: diphenhydrAMINE 50 MG/ML VIAL IVP ONE (16:30)
[2021-04-10] MEDS ORDERED: fentaNYL PF VIAL 100 MCG/2 ML VIAL IVP ONE ×2 (16:30→18:00)
[2021-04-10] MEDS ORDERED: ONDANSETRON PF 4 MG/2 ML VIAL. IVP ONE (16:30)
[2021-04-10 17:06] LABS: BASO # 0.1 x10^3/uL (0.0-0.2); BASO % 1 % (0-3); EOS # 0.2 x10^3/uL (0.0-0.7); EOS % 3 % (0-3); HEMATOCRIT 26.5 % (39.0-53.0); HEMOGLOBIN 9.2 g/dL (13.0-17.5); LYMPH # 2.1 x10^3/uL (1.0-4.8); LYMPH % 23 % (24-48); MEAN CORPUSCULAR HEMOGLOBIN 29 pg (25-35); MEAN CORPUSCULAR HGB CONC 35 g/dL (31-37); MEAN CORPUSCULAR VOLUME 83 fL (79-100); MONO % 12 % (0-9); NEUT # 5.5 x10^3/uL (1.8-7.7); NEUT % 61 % (31-73); PLATELET COUNT 314 x10^3/uL (140-400); WHITE BLOOD COUNT 8.9 x10^3/uL (4.0-11.0)
[2021-04-10 17:14] LABS: CALCIUM 9.2 mg/dL (8.5-10.1); CREATININE 0.6 mg/dL (0.7-1.3); POTASSIUM 4.5 mmol/L (3.5-5.1)
[2021-04-10 17:20] LABS: ALBUMIN 3.9 g/dL (3.4-5.0); ALBUMIN/GLOBULIN RATIO 1.1 (1.0-1.7); TOTAL BILIRUBIN 1.6 mg/dL (0.2-1.0); TOTAL PROTEIN 7.4 g/dL (6.4-8.2)
[2021-04-10 17:31] LABS: % EOS 1 % (0-5); % LYMPHS 23 % (24-48); % MONOS 14 % (0-10); % MYELOS 1 % (0-0); % SEGS 61 % (35-66); NUCLEATED RBC 1; PLT ESTIMATE ADEQUATE (ADEQUATE)
[2021-04-10 17:33] LABS: ANISOCYTOSIS MOD; OVALOCYTES PRESENT; POIKILOCYTOSIS MOD; POLYCHROMASIA PRESENT; SICKLE CELLS PRESENT; TARGET CELLS PRESENT
--- NOTE | 2021-04-10 19:16 | PHYS DOC ---
Past Medical History Past Medical History: Sickle Cell Disease, Other Additional Past Medical Histor: sickle cell anemia Past Surgical History: No Surgical History Additional Past Surgical Histo: L HIP BONE GRAFT Smoking Status: Never Smoker Alcohol Use: None Drug Use: None, Marijuana General Adult EDM: Chief Complaint: BACK PAIN - NO INJURY HPI: HPI: Patient is a 25 year old male who presents to the ED today complaining of 9 out of 10 low back pain radiating to bilateral lower extremities, patient states this is chronic presentation of his sickle cell. Patient denies any injuries. Denies any fever. Denies any nausea or vomiting. Describes the pain as sharp and constant since this afternoon. Patient states he has tried taking oxycodone with no relief. Review of Systems: Review of Systems: Constitutional: Denies fever or chills. [] Eyes: Denies change in visual acuity. [] HENT: Denies nasal congestion or sore throat. [] Respiratory: Denies cough or shortness of breath. [] Cardiovascular: Denies chest pain or edema. [] GI: Denies abdominal pain, nausea, vomiting, bloody stools or diarrhea. [] : Denies dysuria. [] Musculoskeletal: Reports low back pain and bilateral lower extremity pain Integument: Denies rash. [] Neurologic: Denies headache, focal weakness or sensory changes. [] Psychiatric: Denies depression or anxiety. [] Heart Score: C/O Chest Pain: N/A Risk Factors: Risk Factors: DM, Current or recent (<one month) smoker, HTN, HLP, family history of CAD, obesity. Risk Scores: Score 0 - 3: 2.5% MACE over next 6 weeks - Discharge Home Score 4 - 6: 20.3% MACE over next 6 weeks - Admit for Clinical Observation Score 7 - 10: 72.7% MACE over next 6 weeks - Early Invasive Strategies Current Medications: Current Medications Medications (Trade) Dose Ordered Sig/Glenis Start Time Stop Time Status Last Admin Dose Admin Diphenhydramine HCl (Benadryl) 25 mg 1X ONCE 04/10/21 16:30 04/10/21 16:33 DC 04/10/21 16:53 25 MG Fentanyl Citrate (Fentanyl 2ml Vial) 100 mcg 1X ONCE 04/10/21 18:00 04/10/21 18:01 DC 04/10/21 18:26 100 MCG Ondansetron HCl (Zofran) 4 mg 1X ONCE 04/10/21 16:30 04/10/21 16:33 DC 04/10/21 16:53 4 MG Allergies: Allergies: Allergies Coded Allergies Type Severity Reaction Last Updated Verified No Known Drug Allergies 04/10/21 No Physical Exam: PE: Constitutional: Well developed, well nourished, no acute distress, non-toxic appearance. [] HENT: Normocephalic, atraumatic, bilateral external ears normal, oropharynx moist, no oral exudates, nose normal. [] Eyes: PERRLA, EOMI, conjunctiva normal, no discharge. [] Neck: Normal range of motion, no tenderness, supple, no stridor. [] Cardiovascular:Heart rate regular rhythm, no murmur [] Lungs & Thorax: Bilateral breath sounds clear to auscultation [] Abdomen: Bowel sounds normal, soft, no tenderness, no masses, no pulsatile masses. [] Skin: Warm, dry, no erythema, no rash. [] Back: No tenderness, no CVA tenderness. [] Extremities: No tenderness, no cyanosis, no clubbing, ROM intact, no edema. [] Neurologic: Alert and oriented X 3, normal motor function, normal sensory function, no focal deficits noted. [] Psychologic: Affect normal, judgement normal, mood normal. [] Current Patient Data: Labs: Laboratory Tests Test 04/10/21 16:54 White Blood Count 8.9 x10^3/uL (4.0-11.0) Red Blood Count 3.20 x10^6/uL (4.30-5.70) L Hemoglobin 9.2 g/dL (13.0-17.5) L Hematocrit 26.5 % (39.0-53.0) L Mean Corpuscular Volume 83 fL (79-100) Mean Corpuscular Hemoglobin 29 pg (25-35) Mean Corpuscular Hemoglobin Concent 35 g/dL (31-37) Red Cell Distribution Width 24.0 % (11.5-14.5) H Platelet Count 314 x10^3/uL (140-400) Neutrophils (%) (Auto) 61 % (31-73) Lymphocytes (%) (Auto) 23 % (24-48) L Monocytes (%) (Auto) 12 % (0-9) H Eosinophils (%) (Auto) 3 % (0-3) Basophils (%) (Auto) 1 % (0-3) Neutrophils # (Auto) 5.5 x10^3/uL (1.8-7.7) Lymphocytes # (Auto) 2.1 x10^3/uL (1.0-4.8) Monocytes # (Auto) 1.0 x10^3/uL (0.0-1.1) Eosinophils # (Auto) 0.2 x10^3/uL (0.0-0.7) Basophils # (Auto) 0.1 x10^3/uL (0.0-0.2) Segmented Neutrophils % 61 % (35-66) Lymphocytes % 23 % (24-48) L Monocytes % 14 % (0-10) H Eosinophils % 1 % (0-5) Myelocytes % 1 % (0-0) H Nucleated Red Blood Cells 1 Platelet Estimate Adequate (ADEQUATE) Giant Platelets Present Polychromasia Present Poikilocytosis Mod Anisocytosis Mod Sickle Cells Present Target Cells Present Ovalocytes Present Absolute Reticulocyte Count 0.114 x10^6/uL (0.020-0.120) Percent Reticulocyte Count 3.6 % (0.5-2.3) H Immature Reticulocyte Fraction 0.67 (0.20-0.60) H Sodium Level 138 mmol/L (136-145) Potassium Level 4.5 mmol/L (3.5-5.1) Chloride Level 106 mmol/L (98-107) Carbon Dioxide Level 26 mmol/L (21-32) Anion Gap 6 (6-14) Blood Urea Nitrogen 8 mg/dL (8-26) Creatinine 0.6 mg/dL (0.7-1.3) L Estimated GFR (Cockcroft-Gault) 202.0 BUN/Creatinine Ratio 13 (6-20) Glucose Level 88 mg/dL (70-99) Calcium Level 9.2 mg/dL (8.5-10.1) Total Bilirubin 1.6 mg/dL (0.2-1.0) H Aspartate Amino Transferase (AST) 45 U/L (15-37) H Alanine Aminotransferase (ALT) 30 U/L (16-63) Alkaline Phosphatase 156 U/L (46-116) H Total Protein 7.4 g/dL (6.4-8.2) Albumin 3.9 g/dL (3.4-5.0) Albumin/Globulin Ratio 1.1 (1.0-1.7) Laboratory Tests 04/10/21 16:54 Laboratory Tests 04/10/21 16:54 Vital Signs: Vital Signs Date Time Temp Pulse Resp B/P (MAP) Pulse Ox O2 Delivery O2 Flow Rate FiO2 04/10/21 18:37 85 16 118/71 (87) 98 Room Air 04/10/21 16:19 97.9 97.9 EKG: EKG: [] Radiology/Procedures: Radiology/Procedures: [] Course & Med Decision Making: Course & Med Decision Making Pertinent Labs and Imaging studies reviewed. (See chart for details) This is a 25-year-old male patient well-known to this ED for sickle cell pain presenting today with the complaints of low back pain and lower extremity pain. Patient's lab work is negative for any acute findings. His pain is well managed in the ED. He was discharged to home. Follow-up with his own doctor. Candelario Disclaimer: Candelario Disclaimer: This electronic medical record was generated, in whole or in part, using a voice recognition dictation system. Departure Departure Impression: Primary Impression: Sickle cell anemia with pain Disposition: HOME / SELF CARE / HOMELESS Condition: STABLE Referrals: UNKNOWN PCP NAME (PCP) Follow-up with your doctor in 1 week Patient Instructions: Sickle Cell Anemia Additional Instructions: You were evaluated in the emergency room for sickle cell pain. Please follow-up with your primary care doctor in 1 week. Come back to the ED at any point symptoms worsen. ROMY MEDEL VAUDEVILLE ACTOR Apr 10, 2021 19:16
[2021-04-10 20:03] VITALS: BP 118/62
== END 2021-04-10 20:04 | disposition home or self-care (01) ==
LOC: ER 15:50
DX: D57.00 Hb-SS disease with crisis, unspecified (principal); M54.5 Low back pain
CPT/HCPCS: 36415; 80053; 85007; 85025; 85045; 96374; 96375; 96376; 99284; J1200; J2405; J3010; 54700

== ENCOUNTER 2021-04-18 23:21 | Emergency (ER) | payer BC, MEDICARE ==
[~2021-04-18] VITALS: Ht 182.9 cm; Wt 90.0 kg
--- NOTE | 2021-04-18 23:55 | PHYS DOC ---
Past Medical History Past Medical History: Sickle Cell Disease, Other Additional Past Medical Histor: sickle cell anemia Past Surgical History: Other Additional Past Surgical Histo: hip Smoking Status: Former Smoker Alcohol Use: None Drug Use: None, Marijuana General Adult EDM: Chief Complaint: Sickle cell crisis HPI: HPI: 25-year-old male has a history of sickle cell anemia and comes to the ER complaining of back and leg pain over the past 1 to 2 days, he denies fevers, chills, no chest pain or shortness of breath, no headache or neck stiffness/photophobia, the patient said that he got his first dose of the [employer] Covid vaccine about a week ago, Review of Systems: Review of Systems: General: no fevers , no chills, no general weakness Eyes: no blurred vision, no diplopia Skin: no rashes Neck: no swelling, no neck stiffness, no neck pain Heme: no bleeding, no lymph node enlargement Ear/Nose/Throat: No sore throat, no runny nose, no hearing loss, no difficulty swallowing Cardiovascular: no Chest pain, no palpitations Respiratory: No dyspnea, no cough, no hemoptysis Gastrointestinal: No abdominal pain, no nausea, no vomiting, no diarrhea, no blood in stool Genitourinary: no dysuria, no hematuria Musculoskeletal: Back and leg pain Neurologic: no headaches, no dizziness, no focal numbness/tingling, no focal weakness Psych: no depression, no anxiety, no SI/HI *All review of systems are negative other than what is noted above Heart Score: C/O Chest Pain: No Risk Factors: Risk Factors: DM, Current or recent (<one month) smoker, HTN, HLP, family history of CAD, obesity. Risk Scores: Score 0 - 3: 2.5% MACE over next 6 weeks - Discharge Home Score 4 - 6: 20.3% MACE over next 6 weeks - Admit for Clinical Observation Score 7 - 10: 72.7% MACE over next 6 weeks - Early Invasive Strategies Current Medications: Current Medications Medications (Trade) Dose Ordered Sig/Glenis Start Time Stop Time Status Last Admin Dose Admin Morphine Sulfate (Morphine Sulfate) 4 mg 1X ONCE 04/19/21 00:00 04/19/21 00:01 Sodium Chloride 1,000 ml @ 1,000 mls/hr 1X ONCE 04/19/21 00:00 04/19/21 00:59 Allergies: Allergies: Allergies Coded Allergies Type Severity Reaction Last Updated Verified No Known Drug Allergies 04/10/21 No Physical Exam: PE: Gen-well appearing, no acute distress Head: Normocephalic/Atraumatic ENT: atraumatic, PERRLA, EOMI, oropharynx clear Neck: supple, full ROM/strength, no JVD, no nuchal rigidity Lungs: no distress, speaks in full sentences, Clear to auscultation bilaterally CV: reg rate, rhythm, no murmus/rubs/gallops, peripheral pulses equal in all extremities Abdomen: soft/nontender, no guarding/rebound tenderness, no rigidity, non distended, normoactive bowel sounds Musculoskeletal: full ROM/strength in all extremities, atraumatic, no swelling Back: full range of motion/strength Skin: intact, no rashes Lymph: no gross HAYDEN Neuro: alert and oriented x 4, CN 2-12 grossly intact, Motor strength is 5/5 in all extremities, no focal sensory deficits, no focal ataxia, ambulatory with steady gait Psych: normal mood/affect Current Patient Data: Vital Signs: Vital Signs Date Time Temp Pulse Resp B/P (MAP) Pulse Ox O2 Delivery O2 Flow Rate FiO2 04/18/21 23:27 98.8 85 20 121/70 96 Room Air 98.8 EKG: EKG: Twelve-lead EKG was performed at 12:09 AM: Normal sinus rhythm, rate is 79, nonischemic appearing EKG with normal axis and intervals [] Radiology/Procedures: Radiology/Procedures: [] Course & Med Decision Making: Course & Med Decision Making No signs of any acute infectious pathology or acute chest syndrome, he is neurologically intact, afebrile, nontoxic-appearing. We will hydrate him, treat his pain, check labs and reticulocyte count, x-ray, will reevaluate examine the patient and determine the best course of action as he is treated and more data becomes available 25-year-old male has a history of sickle cell anemia presents to the ER and what appears to be acute vaso-occlusive crisis, Reevaluation at 1:09 AM: The patient feeling better, the work-up is negative he had a mild reticulocytosis but otherwise I believe he stable for discharge at this time Patient was seen in the ED for sickle cell pain crisis and was clinically improved in the emergency department and tolerating by mouth fluids, there is no apparent evidence of any emergency medical pathology at this time, patient was advised follow-up with their primary care provider /physician in the next 24-48 hours and to return to the ED before then if any new or worsening / concerning symptoms had developed. All questions and concerns were addressed at time of disposition Candelario Disclaimer: Candelario Disclaimer: This electronic medical record was generated, in whole or in part, using a voice recognition dictation system. Departure Departure Impression: Primary Impression: Sickle cell pain crisis Disposition: HOME / SELF CARE / HOMELESS Condition: IMPROVED Referrals: UNKNOWN PCP NAME (PCP) Patient Instructions: Sickle Cell Anemia, Sickle Cell Pain Crisis Additional Instructions: Please drink plenty of fluids, I recommend you follow-up with your doctor in the next 48 hours, I will send a short course of pain medicines at the pharmacy, return to the ER before then if any new or worsening symptoms develop Scripts Tramadol Hcl (TRAMADOL HCL) 50 Mg Tablet 50 MG PO Q6HRS PRN for PAIN, #15 TAB Prov: BREANNA RUSHING MD 04/19/21 BREANNA RUSHING MD Apr 18, 2021 23:55
[2021-04-19] MEDS ORDERED: MORPHINE SULFATE 4 MG/ML INJ. IVP ONE
[2021-04-19] MEDS ORDERED: IV NORMAL SALINE 1000ML BAG 1,000 ML IV ONE
[2021-04-19 00:19] LABS: CALCIUM 8.7 mg/dL (8.5-10.1); CREATININE 0.7 mg/dL (0.7-1.3); GFR 169.1; POTASSIUM 3.9 mmol/L (3.5-5.1)
[2021-04-19 00:22] LABS: ALBUMIN 3.8 g/dL (3.4-5.0); ALBUMIN/GLOBULIN RATIO 1.1 (1.0-1.7); TOTAL BILIRUBIN 1.5 mg/dL (0.2-1.0); TOTAL PROTEIN 7.2 g/dL (6.4-8.2)
[2021-04-19 00:29] LABS: BASO # 0.1 x10^3/uL (0.0-0.2); BASO % 1 % (0-3); EOS # 0.3 x10^3/uL (0.0-0.7); EOS % 3 % (0-3); HEMATOCRIT 25.3 % (39.0-53.0); HEMOGLOBIN 9.4 g/dL (13.0-17.5); LYMPH # 2.9 x10^3/uL (1.0-4.8); LYMPH % 35 % (24-48); MEAN CORPUSCULAR HEMOGLOBIN 30 pg (25-35); MEAN CORPUSCULAR HGB CONC 37 g/dL (31-37); MEAN CORPUSCULAR VOLUME 81 fL (79-100); MONO # 0.9 x10^3/uL (0.0-1.1); MONO % 11 % (0-9); NEUT % 49 % (31-73); PLATELET COUNT 402 x10^3/uL (140-400); RED BLOOD COUNT 3.14 x10^6/uL (4.30-5.70); WHITE BLOOD COUNT 8.3 x10^3/uL (4.0-11.0)
[2021-04-19] MEDS ORDERED: TRAM50TA PO (01:10)
--- NOTE | 2021-04-19 01:13 | RAD ---
XR CHEST 1V Clinical Indication: Reason: sickle / Spl. Instructions: / History: Comparison: AP chest March 26, 2021. Findings: The cardiomediastinal silhouette is normal. Lungs are clear. There is no pneumothorax. No pleural eff usion is appreciated. No acute bone abnormality. IMPRESSION: No acute cardiopulmonary process. Electronically signed by: Luke Kamara MD (04/19/2021 1:10 AM) [facility]PITALOsbaldo
[2021-04-19 01:19] LABS: ANISOCYTOSIS MOD; PLT ESTIMATE INCREASED (ADEQUATE); POLYCHROMASIA MOD
[2021-04-19 01:20] LABS: SICKLE CELLS MANY; TARGET CELLS FEW
--- NOTE | 2021-04-19 01:28 | EKG ---
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
[2021-04-19 01:30] VITALS: BP 115/55
[2021-04-19] MEDS ORDERED: KETOROLAC 30 MG/ML VIAL. IVP ONE (01:30)
[2021-04-20] MEDS ORDERED: OXYC5TAB4 PO (06:50)
== END 2021-04-19 01:50 | disposition home or self-care (01) ==
LOC: ER 23:21
DX: D57.00 Hb-SS disease with crisis, unspecified (principal); Z87.891 Personal history of nicotine dependence
CPT/HCPCS: 36415; 71045; 80053; 83690; 84443; 85025; 85045; 93005; 96361; 96374; 96375; 99285; J1885; J2270; J7030; 99284-25

== ENCOUNTER 2021-04-20 02:58 | Emergency (ER) | payer BC, MEDICARE ==
[~2021-04-20] VITALS: Ht 182.9 cm; Wt 90.0 kg
[~2021-04-20 02:58] MED LIST changes: +TRAM50TA PO
--- NOTE | 2021-04-20 04:42 | ED.ADGEN ---
Past Medical History Past Medical History: Sickle Cell Disease, Other Additional Past Medical Histor: sickle cell anemia Past Surgical History: Other Additional Past Surgical Histo: hip Smoking Status: Never Smoker Alcohol Use: None Drug Use: None, Marijuana General Adult EDM: Chief Complaint: PAIN CONTROL HPI: HPI: Patient is a 25 year old male coming in for pain control for his sickle cell crisis. Patient was seen by days ago for the same. Patient states his pain was controlled enough that it has not been able to gain control at home with his oxycodones. Has his regular pain visits at but comes here for pain management letter for acute cases because is closer. Denies any chest pain, shortness of breath, cough. Because first Covid vaccine about 1 week ago. He had labs done 1 day ago that were consistent with his baseline labs. States his pain is better located in his low back. Review of Systems: Review of Systems: All other systems within normal limits except for as noted in the HPI Current Medications: Current Medications Medications (Trade) Dose Ordered Sig/Glenis Start Time Stop Time Status Last Admin Dose Admin Fentanyl Citrate (Fentanyl 2ml Vial) 50 mcg 1X ONCE 04/20/21 06:30 04/20/21 06:31 DC 04/20/21 06:13 50 MCG Ringer's Solution 500 ml @ 500 mls/hr 1X ONCE 04/20/21 05:00 04/20/21 05:59 DC 04/20/21 04:50 500 MLS/HR Allergies: Allergies: Allergies Coded Allergies Type Severity Reaction Last Updated Verified No Known Drug Allergies 04/10/21 No Physical Exam: PE: Constitutional: Well developed, well nourished, no acute distress, non-toxic appearance. [] HENT: Normocephalic, atraumatic, bilateral external ears normal, nose normal. [] Eyes: PERRLA, conjunctiva normal, no discharge. [] Neck: No rigidity, supple, no stridor. [] Cardiovascular: Regular rate and rhythm, brisk cap refill [] Lungs & Thorax: Non labored symmetric respirations, no tachypnea or respiratory distress [] Abdomen: Soft, nondistended. Skin: Warm, dry, no erythema, no rash. [] Back: Unremarkable Extremities: No deformities, range of motion grossly intact, no lower extremity edema [] Neurologic: Alert and oriented X 3, no focal deficits noted. [] Psychologic: Affect normal, judgement normal, mood normal. [] Constitutional: Well developed, well nourished HENT: Normocephalic, atraumatic Eyes: Conjunctiva normal, no discharge Neck: Normal range of motion, supple Lungs & Thorax: No respiratory distress, equal chest rise and fall Skin: Warm, dry, no erythema, no rash Neurologic: Alert and oriented X 3, no focal deficits noted Psychologic: Affect normal, judgment normal Current Patient Data: Vital Signs: Vital Signs Date Time Temp Pulse Resp B/P (MAP) Pulse Ox O2 Delivery O2 Flow Rate FiO2 04/20/21 06:13 18 98 Room Air 04/20/21 05:23 73 121/68 (85) 04/20/21 04:30 98.3 98.3 EKG: EKG: [] Heart Score: C/O Chest Pain: N/A Radiology/Procedures: Radiology/Procedures: [] Course & Med Decision Making: Course & Med Decision Making The patient that he should have continued pain with no new symptoms. Had a work-up done 24 hours ago that was consistent with his baseline. Is here for pain control, will do labs and start no new symptoms. Pending next dose of fentanyl at shift change, care transitioned 0600- Sign out received from for patient with sickle cell who present with continued crisis. Patient recently seen for same with full laboratory evaluation. Reported pain not well controlled and out of chronic pain medications. Patient seen and evaluated by myself. Recent labs reviewed. Pain previously addressed. Advised patient would provide Oxycodone 5mg x 10 tabs. Patient stable for discharge with outpatient follow-up with PCP. Discussed findings and plan with patient, who acknowledges understanding and agreement. Candelario Disclaimer: Candelario Disclaimer: This electronic medical record was generated, in whole or in part, using a voice recognition dictation system. Departure Departure Impression: Primary Impression: Sickle cell pain crisis Disposition: HOME / SELF CARE / HOMELESS Condition: STABLE Referrals: UNKNOWN PCP NAME (PCP) Patient Instructions: Chronic Pain Management, Sickle Cell Pain Crisis, [id number] Scripts Oxycodone Hcl (OXYCODONE HCL IMMED.RELEASE ) 5 Mg Tablet 5 MG PO PRN Q6HRS PRN for PAIN, #10 TAB 0 Refills Prov: RC CARABALLO DO 04/20/21 LEE ANN BULLOCK MD Apr 20, 2021 04:42 RC CARABALLO DO Apr 20, 2021 06:52
[2021-04-20] MEDS ORDERED: IV RINGERS,LACTATED 500ML 500 ML IV ONE (05:00)
[2021-04-20] MEDS ORDERED: fentaNYL PF VIAL 100 MCG/2 ML VIAL IVP ONE ×3 (05:00→06:30)
[2021-04-20 06:23] VITALS: BP 117/69
[2021-04-20] MEDS ORDERED: OXYC5TAB4 PO (06:50)
== END 2021-04-20 06:58 | disposition home or self-care (01) ==
LOC: ER 02:58
DX: D57.00 Hb-SS disease with crisis, unspecified (principal)
CPT/HCPCS: 96361; 96374; 96376; 99285; J3010; J7120

== ENCOUNTER 2021-05-11 02:23 | Emergency (ER) | payer BC, MEDICARE ==
[~2021-05-11] VITALS: Ht 175.3 cm; Wt 90.0 kg
[2021-05-11] MEDS ORDERED: fentaNYL PF VIAL 100 MCG/2 ML VIAL IM ONE (03:15)
[2021-05-11] MEDS ORDERED: OXYC10TA46 PO (03:17)
--- NOTE | 2021-05-11 03:19 | PHYS DOC ---
Past Medical History Past Medical History: Sickle Cell Disease, Other Additional Past Medical Histor: sickle cell anemia, COVID-19 Past Surgical History: No Surgical History Additional Past Surgical Histo: hip Smoking Status: Never Smoker Alcohol Use: None Drug Use: None, Marijuana General Adult EDM: Chief Complaint: GENERALIZED BODY ACHES HPI: HPI: Patient is a 25 year old male past medical history sickle cell presents with a chief complaint of sickle cell pain. Patient's typical sickle cell pain involves his upper lower back and bilateral lateral legs. Patient states pain is been ongoing for 1 week progressively becoming worse. Patient is on oxycodone 10 mg for his chronic pain but he states he took his last tablet tonight. Patient arrived by private vehicle. He ambulated into the ER with a steady gait. Patient appears in no acute distress. Review of Systems: Review of Systems: Review of systems: Constitutional symptoms- No fever, no chills. Eyes- No Discharge, No Visual Loss Respiratory symptoms- No shortness of breath, No wheezing, No Dyspnea on Exertion Cardiovascular Systems; No chest pain, No Palpitations, No syncope Gastrointestinal symptoms: NO abdominal pain, no nausea, no vomiting or diarrhea. Genitourinary symptoms: No dysuria. Musculoskeletal symptoms: Positive back pain Positive extremity pain. NEUROLOGICAL Symptoms: No headache, no generalized weakness; No focal Weakness Skin: No rash. Heart Score: C/O Chest Pain: N/A Risk Factors: Risk Factors: DM, Current or recent (<one month) smoker, HTN, HLP, family history of CAD, obesity. Risk Scores: Score 0 - 3: 2.5% MACE over next 6 weeks - Discharge Home Score 4 - 6: 20.3% MACE over next 6 weeks - Admit for Clinical Observation Score 7 - 10: 72.7% MACE over next 6 weeks - Early Invasive Strategies Allergies: Allergies: Allergies Coded Allergies Type Severity Reaction Last Updated Verified No Known Drug Allergies 04/10/21 No Physical Exam: PE: Constitutional: Well developed, well nourished, no acute distress, non-toxic appearance. [] HENT: Normocephalic, atraumatic, bilateral external ears normal, oropharynx moist, no oral exudates, nose normal. [] Eyes: PERRLA, EOMI, conjunctiva normal, no discharge. [] Neck: Normal range of motion, no tenderness, supple, no stridor. [] Cardiovascular:Heart rate regular rhythm, no murmur [] Lungs & Thorax: Bilateral breath sounds clear to auscultation [] Abdomen: Bowel sounds normal, soft, no tenderness, no masses, no pulsatile masses. [] Skin: Warm, dry, no erythema, no rash. [] Back: No tenderness, no CVA tenderness. [] Extremities: No tenderness, no cyanosis, no clubbing, ROM intact, no edema. [] Neurologic: Alert and oriented X 3, normal motor function, normal sensory function, no focal deficits noted. [] Psychologic: Affect normal, judgement normal, mood normal. [] Current Patient Data: Vital Signs: Vital Signs Date Time Temp Pulse Resp B/P (MAP) Pulse Ox O2 Delivery O2 Flow Rate FiO2 05/11/21 02:30 98.6 71 136/77 (96) 95 Room Air 98.6 EKG: EKG: [] Radiology/Procedures: Radiology/Procedures: [] Course & Med Decision Making: Course & Med Decision Making Pertinent Labs and Imaging studies reviewed. (See chart for details) [] Patient was evaluated for chief complaint. Patient's vital signs are stable. Based upon history of present illness and physical exam no emergent labs were ordered. Patient's pain was treated with fentanyl 50 mcg IM. Patient's pain improved but not completely resolved. Oxycodone 10 mg tablets were refilled a prescription was sent to the pharmacy. Patient was discharged home Candelario Disclaimer: Candelario Disclaimer: This electronic medical record was generated, in whole or in part, using a voice recognition dictation system. Departure Departure Impression: Primary Impression: Sickle cell disease Additional Impression: Chronic pain syndrome Disposition: HOME / SELF CARE / HOMELESS Condition: STABLE Referrals: GLENN DACOSTA (PCP) Patient Instructions: Sickle Cell Pain Crisis Scripts Oxycodone HCl (Oxycontin) 10 Mg Tab.er.12h 1 TAB PO TID for pain MDD 3 Tablet(s) for 30 Days, #20 TAB 0 Refills Prov: JAYY PRESLEY DO 05/11/21 JAYY PRESLEY DO May 11, 2021 03:19
[2021-05-11 04:00] VITALS: BP 130/76
== END 2021-05-11 04:36 | disposition home or self-care (01) ==
LOC: ER 02:23
DX: D57.1 Sickle-cell disease without crisis (principal); G89.4 Chronic pain syndrome
CPT/HCPCS: 96372; 99283; J3010

== ENCOUNTER 2021-05-31 12:14 | Emergency (ER) | payer BC, MEDICARE ==
[~2021-05-31] VITALS: Ht 175.3 cm; Wt 88.0 kg
[~2021-05-31 12:14] MED LIST changes: +OXYC10TA46 PO
[2021-05-31 13:30] VITALS: BP 144/75
[2021-05-31] MEDS ORDERED: HYDROmorphone 2 MG/ML VIAL IVP ONE (13:30)
--- NOTE | 2021-05-31 13:39 | PHYS DOC ---
Past Medical History Past Medical History: Sickle Cell Disease, Other Additional Past Medical Histor: sickle cell anemia, COVID-19 Past Surgical History: No Surgical History Additional Past Surgical Histo: hip Smoking Status: Never Smoker Alcohol Use: None Drug Use: None, Marijuana General Adult EDM: Chief Complaint: PAIN CONTROL HPI: HPI: Patient is a 25 year old male with history of sickle cell anemia who presents with sickle cell pain. States that the pain is in his low back and in his extremities. States this is very similar to previous sickle cell crisis pain. He is on hydroxyurea and folic acid. No other chronic medications. He follows with a pipe line walker at [facility]. States that he is missed a few doses of hydroxyurea and folic acid, but does continue to have more at home. He has been out of oxycodone since yesterday, and states that his pain cannot be controlled. States that he has difficulty getting prescriptions for pain medications over the weekends from his outpatient providers, so presented to the emergency department. Denies chest pain, shortness of breath, fever/chills, generalized weakness/fatigue, abdominal pain, or other symptoms aside from pain as mentioned above. Review of Systems: Review of Systems: Constitutional: Denies fever or chills. [] Eyes: Denies change in visual acuity. [] HENT: Denies nasal congestion or sore throat. [] Respiratory: Denies cough or shortness of breath. [] Cardiovascular: Denies chest pain or edema. [] GI: Denies abdominal pain, nausea, vomiting, bloody stools or diarrhea. [] : Denies dysuria. [] Musculoskeletal: Reports back, upper, and lower extremity pain Integument: Denies rash. [] Neurologic: Denies headache, focal weakness or sensory changes. [] Endocrine: Denies polyuria or polydipsia. [] Lymphatic: Denies swollen glands. [] Psychiatric: Denies depression or anxiety. [] Heart Score: C/O Chest Pain: No Risk Factors: Risk Factors: DM, Current or recent (<one month) smoker, HTN, HLP, family history of CAD, obesity. Risk Scores: Score 0 - 3: 2.5% MACE over next 6 weeks - Discharge Home Score 4 - 6: 20.3% MACE over next 6 weeks - Admit for Clinical Observation Score 7 - 10: 72.7% MACE over next 6 weeks - Early Invasive Strategies Current Medications: Current Medications Medications (Trade) Dose Ordered Sig/Glenis Start Time Stop Time Status Last Admin Dose Admin Hydromorphone HCl (Dilaudid) 1 mg 1X ONCE 05/31/21 13:30 05/31/21 13:31 DC 05/31/21 13:28 1 MG Allergies: Allergies: Allergies Coded Allergies Type Severity Reaction Last Updated Verified No Known Drug Allergies 04/10/21 No Physical Exam: PE: Constitutional: Appears uncomfortable HENT: Normocephalic, atraumatic, bilateral external ears normal, oropharynx moist, no oral exudates, nose normal. [] Eyes: PERRLA, EOMI, conjunctiva normal, no discharge. [] Neck: Normal range of motion, no tenderness, supple, no stridor. [] Cardiovascular:Heart rate regular rhythm, no murmur [] Lungs & Thorax: Bilateral breath sounds clear to auscultation [] Abdomen: Bowel sounds normal, soft, no tenderness, no masses, no pulsatile masses. [] Skin: Warm, dry, no erythema, no rash. [] Back: No tenderness, no CVA tenderness. [] Extremities: No tenderness, no cyanosis, no clubbing, ROM intact, no edema. [] Neurologic: Alert and oriented X 3, normal motor function, normal sensory function, no focal deficits noted. Moving all extremities with good strength. [] Psychologic: Affect normal, judgement normal, mood normal. [] EKG: EKG: [] Radiology/Procedures: Radiology/Procedures: [] Course & Med Decision Making: Course & Med Decision Making Pertinent Labs and Imaging studies reviewed. (See chart for details) Patient a 25-year-old male who presents with pain reminiscent of sickle cell crisis pain in his back and all 4 extremities, that is generalized. No aggravating factors identified, aside from him being out of his home opiate medications. No fever, chills, chest pain, shortness of breath to suggest acute chest syndrome. No other systemic symptoms. We will treat with IV Dilaudid, and check CBC, CMP, reticulocyte count. If no acute changes, and pain is well controlled feel he could likely be discharged with short course of opiate pain medications to allow for outpatient follow-up. 1339 Labs at baseline. Good reticulocyte count/percentage. Pain well controlled after IV Dilaudid. We will discharge with short course of oxycodone. 1457 Candelario Disclaimer: Candelario Disclaimer: This electronic medical record was generated, in whole or in part, using a voice recognition dictation system. Departure Departure Impression: Primary Impression: Sickle cell pain crisis Disposition: HOME / SELF CARE / HOMELESS Condition: STABLE Referrals: GLENN DACOSTA (PCP) Additional Instructions: Please call your pipe line walker on Wednesday to to tell them about your ED visit. For pain you can take oxycodone 5-10 mg every 4-6 hours as needed. Return to the emergency department for fever, chills, chest pain, or shortness of breath. Please continue to take your home medications as prescribed Scripts Oxycodone HCl (Oxycodone HCl) 5 Mg Tablet 5-10 MG PO PRN Q6HRS PRN for PAIN for 3 Days, #18 TAB Prov: ARA FAUSTIN MD 05/31/21 ARA FAUSTIN MD May 31, 2021 13:39
[2021-05-31 14:22] LABS: BASO # 0.1 x10^3/uL (0.0-0.2); BASO % 1 % (0-3); EOS # 0.2 x10^3/uL (0.0-0.7); EOS % 2 % (0-3); HEMATOCRIT 27.6 % (39.0-53.0); HEMOGLOBIN 9.8 g/dL (13.0-17.5); LYMPH % 32 % (24-48); MEAN CORPUSCULAR HEMOGLOBIN 30 pg (25-35); MEAN CORPUSCULAR HGB CONC 36 g/dL (31-37); MEAN CORPUSCULAR VOLUME 84 fL (79-100); MONO # 0.9 x10^3/uL (0.0-1.1); MONO % 15 % (0-9); NEUT # 3.2 x10^3/uL (1.8-7.7); NEUT % 50 % (31-73); PLATELET COUNT 254 x10^3/uL (140-400); RED BLOOD COUNT 3.27 x10^6/uL (4.30-5.70); RED CELL DISTRIBUTION WIDTH 23.2 % (11.5-14.5); WHITE BLOOD COUNT 6.4 x10^3/uL (4.0-11.0)
[2021-05-31 14:32] LABS: CALCIUM 8.8 mg/dL (8.5-10.1); CREATININE 0.6 mg/dL (0.7-1.3); POTASSIUM 4.2 mmol/L (3.5-5.1)
[2021-05-31 14:36] LABS: PLT ESTIMATE ADEQUATE (ADEQUATE); POLYCHROMASIA SLIGHT
[2021-05-31 14:37] LABS: ALBUMIN 4.3 g/dL (3.4-5.0); ALBUMIN/GLOBULIN RATIO 1.2 (1.0-1.7); ANISOCYTOSIS MOD; SCHISTOCYTES FEW; SICKLE CELLS MOD; TARGET CELLS MANY; TOTAL PROTEIN 7.9 g/dL (6.4-8.2)
[2021-05-31] MEDS ORDERED: OXYC5TAB2 PO (15:00)
== END 2021-05-31 15:58 | disposition home or self-care (01) ==
LOC: ER 12:14
DX: D57.00 Hb-SS disease with crisis, unspecified (principal); Z86.2 Personal history of diseases of the blood and blood-forming organs and certain disorders involving the immune mechanism
CPT/HCPCS: 36415; 80053; 85025; 85045; 96374; 99283; J1170

== ENCOUNTER 2021-06-02 12:58 | Emergency (ER) | payer BC, MEDICARE ==
[~2021-06-02] VITALS: Ht 175.3 cm; Wt 88.6 kg
[2021-06-02] MEDS ORDERED: fentaNYL PF VIAL 100 MCG/2 ML VIAL IVP ONE ×2 (13:15→16:15)
[2021-06-02] MEDS ORDERED: IV NORMAL SALINE 1000ML BAG 1,000 ML IV ONE (13:15)
--- NOTE | 2021-06-02 13:22 | PHYS DOC ---
Past Medical History Past Medical History: Sickle Cell Disease, Other Additional Past Medical Histor: sickle cell anemia, COVID-19 (GERALD NGO CAREER SERVICES COORDINATOR) Past Surgical History: Other Additional Past Surgical Histo: R KNEE SX (GERALD [employer] CAREER SERVICES COORDINATOR) Smoking Status: Never Smoker Alcohol Use: None Drug Use: None, Marijuana (GERALD [employer] CAREER SERVICES COORDINATOR) General Adult EDM: Chief Complaint: OTHER COMPLAINTS HPI: HPI: Patient is a 25 year old male who presents with chronic sickle cell pain. He states that when the weather changes he usually begins to have sickle cell pain. He states this is his normal usual pain. He states he did take an OxyContin 5 mg this morning. He states he does have medication left over at home. States he tried to get into see his pain clinic doctor but was unable to move as he had appointments open. He denies chest pain, shortness of breath, abdominal pain, nausea, vomiting, diarrhea, fever, cough, numbness or tingling, vision change, headache, dizziness. Rates his pain 10 out of 10. He has a history of sickle cell, COVID-19, right knee surgery. (GERALD [employer] CAREER SERVICES COORDINATOR) Review of Systems: Review of Systems: Constitutional: Denies fever or chills. [] Eyes: Denies change in visual acuity. [] HENT: Denies nasal congestion or sore throat. [] Respiratory: Denies cough or shortness of breath. [] Cardiovascular: Denies chest pain or edema. [] GI: Denies abdominal pain, nausea, vomiting, bloody stools or diarrhea. [] : Denies dysuria. [] Musculoskeletal: + Upper and lower back pain or joint pain. + Bilateral thigh pain [] Integument: Denies rash. [] Neurologic: Denies headache, focal weakness or sensory changes. [] Endocrine: Denies polyuria or polydipsia. [] Lymphatic: Denies swollen glands. [] Psychiatric: Denies depression or anxiety. [] (GERALD [employer] CAREER SERVICES COORDINATOR) Heart Score: C/O Chest Pain: No ([employer] CAREER SERVICES COORDINATOR) Current Medications: Current Medications Medications (Trade) Dose Ordered Sig/Glenis Start Time Stop Time Status Last Admin Dose Admin Fentanyl Citrate (Fentanyl 2ml Vial) 50 mcg 1X ONCE 06/02/21 13:15 06/02/21 13:16 UNV Sodium Chloride 1,000 ml @ 1,000 mls/hr 1X ONCE 06/02/21 13:15 06/02/21 14:14 UNV (GERALD NGO APRN) Allergies: Allergies: Allergies Coded Allergies Type Severity Reaction Last Updated Verified No Known Drug Allergies 04/10/21 No (GERALD NGO APRN) Physical Exam: PE: Constitutional: Well developed, well nourished, no acute distress, non-toxic appearance. [] HENT: Normocephalic, atraumatic, bilateral external ears normal, oropharynx moist, no oral exudates, nose normal. [] Eyes: PERRLA, EOMI, conjunctiva normal, no discharge. [] Neck: Normal range of motion, no tenderness, supple, no stridor. [] Cardiovascular:Heart rate regular rhythm, no murmur [] Lungs & Thorax: Bilateral breath sounds clear to auscultation [] Abdomen: Bowel sounds normal, soft, no tenderness, no masses, no pulsatile masses. [] Skin: Warm, dry, no erythema, no rash. [] Back: No tenderness, no CVA tenderness. [] Extremities: No tenderness, no cyanosis, no clubbing, ROM intact, no edema. [] Neurologic: Alert and oriented X 3, normal motor function, normal sensory function, no focal deficits noted. [] Psychologic: Affect normal, judgement normal, mood normal. [] Normal physical exam (GERALD NGO APRN) Current Patient Data: Vital Signs: Vital Signs Date Time Temp Pulse Resp B/P (MAP) Pulse Ox O2 Delivery O2 Flow Rate FiO2 06/02/21 13:09 98.3 72 16 122/65 (84) 99 Room Air 98.3 (GERALD NGO APRN) EKG: EKG: [] (GERALD NGO APRN) Radiology/Procedures: Radiology/Procedures: [] (GERALD NGO APRN) Course & Med Decision Making: Course & Med Decision Making Pertinent Labs and Imaging studies reviewed. (See chart for details) See HPI. Alert and oriented x4. Ambulatory steady gait. Speaks in full clear sentences. Skin pink warm and dry. Lungs are clear all station all lobes. Vital signs within normal limits. Patient states he has a appointment on June 06 with his pain clinic doctor at [facility]. He states that he attempted to text message his physician today but there is no open spots. He states he tried to go to [facility] and today but they are very busy. Patient was given morphine through his IV 4 mg and he had an allergic reaction causing hives and itching and swelling at the injection site. He was given Benadryl 25 mg IV. Patient states he is feeling much better and is asking for one last dose of fentanyl. Patient stable and discharged home. He is to follow-up with his pain clinic as scheduled. [] (GERALD NGO APRN) Course & Med Decision Making I have participated in the care of this patient and I have reviewed and agree with all pertinent clinical information above including history, exam, and recommendations. (NICKIE PACKER DO) Dragon Disclaimer: Dragon Disclaimer: This electronic medical record was generated, in whole or in part, using a voice recognition dictation system. (GERALD NGO APRN) Departure Departure Impression: Primary Impression: Sickle cell pain crisis Disposition: HOME / SELF CARE / HOMELESS Condition: STABLE Referrals: GLENN DACOSTA (PCP) Patient Instructions: Sickle Cell Pain Crisis Additional Instructions: Follow-up with your pain clinic as soon as possible. Continue taking your medications as they are prescribed. Drink plenty of fluids. If anything worsens such as chest pain or shortness of breath return emergency room. GERALD NGO APRN Jun 02, 2021 13:22 NICKIE PACKER DO Jun 02, 2021 16:25
[2021-06-02 13:41] LABS: BASO # 0.1 x10^3/uL (0.0-0.2); BASO % 1 % (0-3); EOS # 0.2 x10^3/uL (0.0-0.7); EOS % 3 % (0-3); HEMATOCRIT 27.8 % (39.0-53.0); HEMOGLOBIN 10.3 g/dL (13.0-17.5); LYMPH # 2.3 x10^3/uL (1.0-4.8); LYMPH % 38 % (24-48); MEAN CORPUSCULAR HEMOGLOBIN 31 pg (25-35); MEAN CORPUSCULAR HGB CONC 37 g/dL (31-37); MEAN CORPUSCULAR VOLUME 83 fL (79-100); MONO % 16 % (0-9); NEUT # 2.5 x10^3/uL (1.8-7.7); NEUT % 42 % (31-73); PLATELET COUNT 322 x10^3/uL (140-400); RED BLOOD COUNT 3.34 x10^6/uL (4.30-5.70); RED CELL DISTRIBUTION WIDTH 23.8 % (11.5-14.5)
[2021-06-02 13:49] LABS: ALBUMIN 4.3 g/dL (3.4-5.0); ALBUMIN/GLOBULIN RATIO 1.3 (1.0-1.7); CALCIUM 8.9 mg/dL (8.5-10.1); CREATININE 0.7 mg/dL (0.7-1.3); GFR 169.1; POTASSIUM 4.3 mmol/L (3.5-5.1); TOTAL BILIRUBIN 1.9 mg/dL (0.2-1.0); TOTAL PROTEIN 7.7 g/dL (6.4-8.2)
[2021-06-02 14:21] LABS: PLT ESTIMATE ADEQUATE (ADEQUATE)
[2021-06-02 14:23] LABS: ANISOCYTOSIS MOD; HOWELL-JOLLY BODIES PRESENT; OVALOCYTES PRESENT; POIKILOCYTOSIS MOD; POLYCHROMASIA PRESENT; SICKLE CELLS PRESENT
[2021-06-02 14:24] LABS: TARGET CELLS PRESENT
[2021-06-02] MEDS ORDERED: MORPHINE SULFATE 4 MG/ML INJ. IVP ONE (14:45)
[2021-06-02] MEDS ORDERED: diphenhydrAMINE 50 MG/ML VIAL IVP ONE (15:15)
[2021-06-02 16:04] VITALS: BP 100/53
== END 2021-06-02 16:25 | disposition home or self-care (01) ==
LOC: ER 12:58
DX: D57.00 Hb-SS disease with crisis, unspecified (principal)
CPT/HCPCS: 36415; 80053; 85025; 85045; 96361; 96374; 96375; 96376; 99285; J1200; J2270; J3010; J7030

== ENCOUNTER 2021-06-07 20:39 | Emergency (ER) | payer BC, MEDICARE ==
[~2021-06-07] VITALS: Ht 175.3 cm; Wt 89.0 kg
[2021-06-07 21:24] VITALS: BP 112/67
[2021-06-07] MEDS ORDERED: fentaNYL PF VIAL 100 MCG/2 ML VIAL IVP ONE ×2 (21:45→23:00)
[2021-06-07] MEDS ORDERED: ONDANSETRON PF 4 MG/2 ML VIAL. IVP ONE (21:45)
[2021-06-07] MEDS ORDERED: IV NORMAL SALINE 1000ML BAG 1,000 ML IV ONE (21:45)
[2021-06-07] MEDS ORDERED: diphenhydrAMINE 50 MG/ML VIAL IVP ONE (21:45)
--- NOTE | 2021-06-07 22:00 | PHYS DOC ---
Past Medical History Past Medical History: Sickle Cell Disease, Other Additional Past Medical Histor: sickle cell anemia, COVID-19 (RADHAAlbertoROMY Elliot RETAIL CUSTODIAL ASSOCIATE) Past Surgical History: Other Additional Past Surgical Histo: R KNEE SX (ROMY MEDEL Elliot RETAIL CUSTODIAL ASSOCIATE) Smoking Status: Never Smoker Alcohol Use: None Drug Use: None, Marijuana (GIANFRANCOROMY Elliot RETAIL CUSTODIAL ASSOCIATE) General Adult EDM: Chief Complaint: PAIN CONTROL HPI: HPI: Patient is a 25 year old male patient with history of sickle cell presenting to the ED today complaining of 10 out of 10 low back pain, bilateral lower extremity pain, symptoms began 2 weeks ago. Patient states as the cold weather has been sitting in his pain has increased. Patient states he is usually on oxycodone but he ran out of the medicine. He states he is trying to get by until Wednesday when he sees his doctor. Patient denies any fever, nausea or vomiting. (ROMY MEDEL Elliot RETAIL CUSTODIAL ASSOCIATE) Review of Systems: Review of Systems: Constitutional: Denies fever or chills. [] Eyes: Denies change in visual acuity. [] HENT: Denies nasal congestion or sore throat. [] Respiratory: Denies cough or shortness of breath. [] Cardiovascular: Denies chest pain or edema. [] GI: Denies abdominal pain, nausea, vomiting, bloody stools or diarrhea. [] : Denies dysuria. [] Musculoskeletal: Reports low back pain and bilateral lower extremity pain Integument: Denies rash. [] Neurologic: Denies headache, focal weakness or sensory changes. [] Psychiatric: Denies depression or anxiety. [] (ROMY MEDEL RETAIL CUSTODIAL ASSOCIATE) Heart Score: C/O Chest Pain: N/A Risk Factors: Risk Factors: DM, Current or recent (<one month) smoker, HTN, HLP, family history of CAD, obesity. Risk Scores: Score 0 - 3: 2.5% MACE over next 6 weeks - Discharge Home Score 4 - 6: 20.3% MACE over next 6 weeks - Admit for Clinical Observation Score 7 - 10: 72.7% MACE over next 6 weeks - Early Invasive Strategies (ROMY MEDEL RETAIL CUSTODIAL ASSOCIATE) Current Medications: Current Medications Medications (Trade) Dose Ordered Sig/Glenis Start Time Stop Time Status Last Admin Dose Admin Diphenhydramine HCl (Benadryl) 25 mg 1X ONCE 06/07/21 21:45 06/07/21 21:46 DC Fentanyl Citrate (Fentanyl 2ml Vial) 100 mcg 1X ONCE 06/07/21 21:45 06/07/21 21:46 DC Ondansetron HCl (Zofran) 4 mg 1X ONCE 06/07/21 21:45 06/07/21 21:46 DC Sodium Chloride 1,000 ml @ 1,000 mls/hr 1X ONCE 06/07/21 21:45 06/07/21 22:44 (ROMY MEDEL RETAIL CUSTODIAL ASSOCIATE) Allergies: Allergies: Allergies Coded Allergies Type Severity Reaction Last Updated Verified morphine Allergy Intermediate swelling, hives 06/02/21 Yes (ROMY MEDEL RETAIL CUSTODIAL ASSOCIATE) Physical Exam: PE: Constitutional: Well developed, well nourished, no acute distress, non-toxic appearance. [] HENT: Normocephalic, atraumatic, bilateral external ears normal, oropharynx moist, no oral exudates, nose normal. [] Eyes: PERRLA, EOMI, conjunctiva normal, no discharge. [] Neck: Normal range of motion, no tenderness, supple, no stridor. [] Cardiovascular:Heart rate regular rhythm, no murmur [] Lungs & Thorax: Bilateral breath sounds clear to auscultation [] Abdomen: Bowel sounds normal, soft, no tenderness, no masses, no pulsatile masses. [] Skin: Warm, dry, no erythema, no rash. [] Back: No tenderness, no CVA tenderness. [] Extremities: No tenderness, no cyanosis, no clubbing, ROM intact, no edema. [] Neurologic: Alert and oriented X 3, normal motor function, normal sensory fun ction, no focal deficits noted. [] Psychologic: Affect normal, judgement normal, mood normal. [] (ROMY MEDEL RETAIL CUSTODIAL ASSOCIATE) Current Patient Data: Vital Signs: Vital Signs Date Time Temp Pulse Resp B/P (MAP) Pulse Ox O2 Delivery O2 Flow Rate FiO2 06/07/21 21:24 98.9 90 18 112/67 (82) 95 Room Air 98.9 (ROMY MEDEL RETAIL CUSTODIAL ASSOCIATE) EKG: EKG: [] (ROMY MEDEL RETAIL CUSTODIAL ASSOCIATE) Radiology/Procedures: Radiology/Procedures: [] (ROMY MEDEL APRN) Course & Med Decision Making: Course & Med Decision Making Pertinent Labs and Imaging studies reviewed. (See chart for details) This is a 25-year-old male patient with history of sickle cell well-known to this ED presenting today complaining of low back pain and bilateral lower extremity pain, symptoms for 2 weeks and have gotten worse as the cold weather continues. Patient's labs are negative for any acute findings, he was given IV fluids Zofran Benadryl and fentanyl. Discharge to home. Follow-up with his doctor on Wednesday (ROMY MEDEL APRN) Course & Med Decision Making I have participated in the care of this patient and I have reviewed and agree with all pertinent clinical information above including history, exam, and recommendations. (NICKIE PACKER DO) Christinon Disclaimer: Candelario Disclaimer: This electronic medical record was generated, in whole or in part, using a voice recognition dictation system. (ROMY MEDEL APRN) Departure Departure Impression: Primary Impression: Sickle cell anemia with pain Disposition: 01 HOME / SELF CARE / HOMELESS Condition: STABLE Referrals: NON,STAFF (PCP) follow up with your doctor on Wednesday Patient Instructions: Sickle Cell Pain Crisis Additional Instructions: You were evaluated in the emergency room for sickle cell pain. Please follow-up with your doctor on Wednesday. Avoid being out in the cold Scripts Oxycodone Hcl (OXYCODONE HCL) 5 Mg Capsule 15 MG PO PRN Q6HRS PRN for PAIN, #15 TAB 0 Refills Prov: ROMY MEDEL APRN 06/07/21 ROMY MEDEL APRN Jun 07, 2021 22:00 NICKIE PACKER DO Jun 07, 2021 23:28
[2021-06-07 22:03] LABS: BASO # 0.1 x10^3/uL (0.0-0.2); BASO % 2 % (0-3); EOS # 0.2 x10^3/uL (0.0-0.7); EOS % 3 % (0-3); HEMOGLOBIN 9.5 g/dL (13.0-17.5); LYMPH # 2.9 x10^3/uL (1.0-4.8); LYMPH % 42 % (24-48); MEAN CORPUSCULAR HEMOGLOBIN 31 pg (25-35); MEAN CORPUSCULAR HGB CONC 37 g/dL (31-37); MEAN CORPUSCULAR VOLUME 84 fL (79-100); MONO % 15 % (0-9); NEUT # 2.7 x10^3/uL (1.8-7.7); NEUT % 39 % (31-73); PLATELET COUNT 274 x10^3/uL (140-400); RED BLOOD COUNT 3.09 x10^6/uL (4.30-5.70); RED CELL DISTRIBUTION WIDTH 23.4 % (11.5-14.5)
[2021-06-07 22:15] LABS: CALCIUM 8.7 mg/dL (8.5-10.1); CREATININE 0.6 mg/dL (0.7-1.3)
[2021-06-07 22:21] LABS: ALBUMIN 3.9 g/dL (3.4-5.0); ALBUMIN/GLOBULIN RATIO 1.1 (1.0-1.7); TOTAL BILIRUBIN 1.7 mg/dL (0.2-1.0); TOTAL PROTEIN 7.4 g/dL (6.4-8.2)
[2021-06-07 22:33] LABS: % ATYL 2 % (0-0); % EOS 1 % (0-5); % LYMPHS 66 % (24-48); % MONOS 10 % (0-10); % SEGS 21 % (35-66); ANISOCYTOSIS MOD; HYPOCHROMIA SLIGHT; NUCLEATED RBC 10; PLT ESTIMATE ADEQUATE (ADEQUATE); POIKILOCYTOSIS MOD; POLYCHROMASIA MOD
[2021-06-07 22:34] LABS: OVALOCYTES MOD; SICKLE CELLS FEW; SPHEROCYTES FEW; TARGET CELLS MOD
[2021-06-07 22:35] LABS: SCHISTOCYTES FEW
[2021-06-07] MEDS ORDERED: OXYC5CAP PO (22:53)
== END 2021-06-08 00:17 | disposition home or self-care (01) ==
LOC: ER 20:39
DX: D57.00 Hb-SS disease with crisis, unspecified (principal); Z88.5 Allergy status to narcotic agent
CPT/HCPCS: 36415; 80053; 85007; 85025; 85045; 96361; 96374; 96375; 96376; 99284; J1200; J2405; J3010; J7030

== ENCOUNTER 2021-06-14 13:52 | Emergency (ER) | payer BC, MEDICARE ==
[~2021-06-14] VITALS: Ht 182.9 cm; Wt 75.0 kg
[~2021-06-14 13:52] MED LIST changes: +OXYC5CAP PO
[2021-06-14 16:01] VITALS: BP 123/61
[2021-06-14] MEDS ORDERED: IV NORMAL SALINE 1000ML BAG 1,000 ML IV ONE (16:15)
[2021-06-14] MEDS ORDERED: fentaNYL PF VIAL 100 MCG/2 ML VIAL IVP ONE ×2 (16:15→17:30)
--- NOTE | 2021-06-14 16:17 | PHYS DOC ---
Past Medical History Past Medical History: Sickle Cell Disease, Other Additional Past Medical Histor: sickle cell anemia, COVID-19 Past Surgical History: Other Additional Past Surgical Histo: R KNEE SX Smoking Status: Never Smoker Alcohol Use: None Drug Use: None, Marijuana General Adult EDM: Chief Complaint: COUGH HPI: HPI: Patient is a 25-year-old male that presents today with lower back pain and leg pain states he is having a sickle cell crisis. Patient states over the last month he has had increased problems with pain control due to his sickle cell disease, he presents today with increasing pain since and is unable to get into his clinic for management. He states he takes oxycodone 15 mg and that that has not been helping his pain at home. Patient denies fever and chills, states he has his Covid vaccines both of them and has had Covid in the past. Denies chest pain or shortness of breath Review of Systems: Review of Systems: Constitutional: Denies fever or chills. [] Eyes: Denies change in visual acuity. [] HENT: Denies nasal congestion or sore throat. [] Respiratory: Denies cough or shortness of breath. [] Cardiovascular: Denies chest pain or edema. [] GI: Denies abdominal pain, nausea, vomiting, bloody stools or diarrhea. [] : Denies dysuria. [] Musculoskeletal: bilateral leg pain and lower back pain Integument: Denies rash. [] Neurologic: Denies headache, focal weakness or sensory changes. [] Endocrine: Denies polyuria or polydipsia. [] Lymphatic: Denies swollen glands. [] Psychiatric: Denies depression or anxiety. [] Heart Score: C/O Chest Pain: N/A Risk Factors: Risk Factors: DM, Current or recent (<one month) smoker, HTN, HLP, family history of CAD, obesity. Risk Scores: Score 0 - 3: 2.5% MACE over next 6 weeks - Discharge Home Score 4 - 6: 20.3% MACE over next 6 weeks - Admit for Clinical Observation Score 7 - 10: 72.7% MACE over next 6 weeks - Early Invasive Strategies Current Medications: Current Medications Medications (Trade) Dose Ordered Sig/Glenis Start Time Stop Time Status Last Admin Dose Admin Fentanyl Citrate (Fentanyl 2ml Vial) 100 mcg 1X ONCE 06/14/21 16:15 06/14/21 16:16 Sodium Chloride 1,000 ml @ 999 mls/hr 1X ONCE 06/14/21 16:15 06/14/21 17:15 Allergies: Allergies: Allergies Coded Allergies Type Severity Reaction Last Updated Verified morphine Allergy Intermediate swelling, hives 06/02/21 Yes Physical Exam: PE: Constitutional: Well developed, well nourished, no acute distress, non-toxic appearance. [] HENT: Normocephalic, atraumatic, bilateral external ears normal, oropharynx moist, no oral exudates, nose normal. [] Eyes: PERRLA, EOMI, conjunctiva normal, no discharge. [] Neck: Normal range of motion, no tenderness, supple, no stridor. [] Cardiovascular:Heart rate regular rhythm, no murmur [] Lungs & Thorax: Bilateral breath sounds clear to auscultation [] Abdomen: Bowel sounds normal, soft, no tenderness, no masses, no pulsatile masses. [] Skin: Warm, dry, no erythema, no rash. [] Back: No tenderness, no CVA tenderness. [] Extremities: No tenderness, no cyanosis, no clubbing, ROM intact, no edema. [] Neurologic: Alert and oriented X 3, normal motor function, normal sensory function, no focal deficits noted. [] Psychologic: Affect normal, judgement normal, mood normal. [] Current Patient Data: Labs: Laboratory Tests Test 06/14/21 16:20 White Blood Count 7.2 x10^3/uL Red Blood Count 3.18 x10^6/uL Hemoglobin 9.6 g/dL Hematocrit 26.5 % Mean Corpuscular Volume 84 fL Mean Corpuscular Hemoglobin 30 pg Mean Corpuscular Hemoglobin Concent 36 g/dL Red Cell Distribution Width 24.0 % Platelet Count 295 x10^3/uL Neutrophils (%) (Auto) 44 % Lymphocytes (%) (Auto) 36 % Monocytes (%) (Auto) 17 % Eosinophils (%) (Auto) 3 % Basophils (%) (Auto) 1 % Neutrophils # (Auto) 3.2 x10^3/uL Lymphocytes # (Auto) 2.6 x10^3/uL Monocytes # (Auto) 1.2 x10^3/uL Eosinophils # (Auto) 0.2 x10^3/uL Basophils # (Auto) 0.0 x10^3/uL Segmented Neutrophils % 44 % Band Neutrophils % 2 % Lymphocytes % 42 % Monocytes % 11 % Basophils % 1 % Nucleated Red Blood Cells 1 Smudge Cells Present Platelet Estimate Adequate Large Platelets Occ Giant Platelets Occ Polychromasia Mod Poikilocytosis Mod Basophilic Stippling Present Anisocytosis Mod Sickle Cells Mod Target Cells Occ Schistocytes Few Absolute Reticulocyte Count 0.199 x10^6/uL Percent Reticulocyte Count 6.3 % Immature Reticulocyte Fraction 0.72 Current Medications Medications (Trade) Dose Ordered Sig/Glenis Route PRN Reason Start Time Stop Time Status Last Admin Dose Admin Sodium Chloride 1,000 ml @ 999 mls/hr 1X ONCE IV 06/14/21 16:15 06/14/21 17:15 DC 06/14/21 16:38 Fentanyl Citrate (Fentanyl 2ml Vial) 100 mcg 1X ONCE IVP 06/14/21 16:15 06/14/21 16:16 DC 06/14/21 16:37 Vital Signs: Vital Signs Date Time Temp Pulse Resp B/P (MAP) Pulse Ox O2 Delivery O2 Flow Rate FiO2 06/14/21 17:57 16 Room Air 06/14/21 16:37 18 98 Room Air 06/14/21 16:01 98.2 71 16 123/61 (81) 97 Room Air 98.2 Vital Signs Date Time Temp Pulse Resp B/P (MAP) Pulse Ox O2 Delivery O2 Flow Rate FiO2 06/14/21 16:01 98.2 71 16 123/61 (81) 97 Room Air 98.2 EKG: EKG: [] Radiology/Procedures: Radiology/Procedures: [] Course & Med Decision Making: Course & Med Decision Making Pertinent Labs and Imaging studies reviewed. (See chart for details) 1725 reexamined patient patient states pain is a 7 out of 10, vital signs heart rate 85 blood pressure 110/85, patient also states that he has cough and wishes to be tested for Covid he is concerned that he has children at home and he does not want to give them to them. Patient also requesting another dose of pain medicines. [] 1900 patient informed that Covid was negative patient states pain is a 5 out of 10, patient will be discharged home encouraged to take prescriptive medications that he has at home for his sickle cell crisis also increase fluids. Patient is to follow-up with his clinic at [facility] for management of the sickle cell disease next week. Patient verbalizes understanding of plan and agrees to plan Candelario Disclaimer: Dragon Disclaimer: This electronic medical record was generated, in whole or in part, using a voice recognition dictation system. Departure Departure Impression: Primary Impression: Sickle cell pain crisis Disposition: HOME / SELF CARE / HOMELESS Condition: STABLE Referrals: NON,STAFF (PCP) RC OLIVEIRA MD Patient Instructions: Sickle Cell Pain Crisis Additional Instructions: Increase fluids while having sickle cell crisis Take prescribed pain medication as directed Follow-up with with the [facility] sickle cell clinic next week or your primary care physician for management of her sickle cell disease. ADRY WILSON [employer] TEAM LEADER Jun 14, 2021 16:17
[2021-06-14 16:34] LABS: BASO % 1 % (0-3); EOS # 0.2 x10^3/uL (0.0-0.7); EOS % 3 % (0-3); HEMATOCRIT 26.5 % (39.0-53.0); HEMOGLOBIN 9.6 g/dL (13.0-17.5); LYMPH # 2.6 x10^3/uL (1.0-4.8); LYMPH % 36 % (24-48); MEAN CORPUSCULAR HEMOGLOBIN 30 pg (25-35); MEAN CORPUSCULAR HGB CONC 36 g/dL (31-37); MEAN CORPUSCULAR VOLUME 84 fL (79-100); MONO # 1.2 x10^3/uL (0.0-1.1); MONO % 17 % (0-9); NEUT # 3.2 x10^3/uL (1.8-7.7); NEUT % 44 % (31-73); PLATELET COUNT 295 x10^3/uL (140-400); WHITE BLOOD COUNT 7.2 x10^3/uL (4.0-11.0)
[2021-06-14 16:38] LABS: RED BLOOD COUNT 3.18 x10^6/uL (4.30-5.70)
[2021-06-14 17:10] LABS: % BANDS 2 % (0-9); % BASOS 1 % (0-3); % LYMPHS 42 % (24-48); % MONOS 11 % (0-10); % SEGS 44 % (35-66); PLT ESTIMATE ADEQUATE (ADEQUATE)
[2021-06-14 17:11] LABS: NUCLEATED RBC 1
[2021-06-14 17:13] LABS: ANISOCYTOSIS MOD; POIKILOCYTOSIS MOD; POLYCHROMASIA MOD; SICKLE CELLS MOD; TARGET CELLS OCC
[2021-06-14 17:14] LABS: SCHISTOCYTES FEW; SMUDGE CELLS PRESENT
== END 2021-06-14 19:15 | disposition home or self-care (01) ==
LOC: ER 13:52
DX: D57.00 Hb-SS disease with crisis, unspecified (principal); Z20.822 Contact with and (suspected) exposure to COVID-19; Z88.5 Allergy status to narcotic agent
CPT/HCPCS: 36415; 85007; 85025; 85045; 87426; 96361; 96374; 96376; 99284; J3010; J7030; U0003; U0005

== ENCOUNTER 2021-06-18 11:31 | Emergency (ER) | payer BC, MEDICARE ==
[~2021-06-18] VITALS: Ht 175.3 cm; Wt 83.8 kg
--- NOTE | 2021-06-18 13:05 | PHYS DOC ---
Past Medical History Past Medical History: Sickle Cell Disease, Other Additional Past Medical Histor: sickle cell anemia, COVID-19 Past Surgical History: Other Additional Past Surgical Histo: R KNEE SX Smoking Status: Current Some Day Smoker Alcohol Use: None Drug Use: None, Marijuana General Adult EDM: Chief Complaint: GENERALIZED BODY ACHES HPI: HPI: Patient is a 25 year old male who present to ER due to generalized body aches, back pain, extremity pain. Patient denies injury. Patient has history of chronic sickle cell problem, patient has been evaluated here multiple times for the same problem. Patient denies any cough or fever, no nausea vomiting. Patient denies any abdominal pain. Patient was fully vaccinated for COVID-19. Review of Systems: Review of Systems: Constitutional: Denies fever or chills. [] Eyes: Denies change in visual acuity. [] HENT: Denies nasal congestion or sore throat. [] Respiratory: Denies cough or shortness of breath. [] Cardiovascular: Denies chest pain or edema. [] GI: Denies abdominal pain, nausea, vomiting, bloody stools or diarrhea. [] : Denies dysuria. [] Musculoskeletal: Positive for back pain AND positive for joints pain. Integument: Denies rash. [] Neurologic: Denies headache, focal weakness or sensory changes. [] Endocrine: Denies polyuria or polydipsia. [] Lymphatic: Denies swollen glands. [] Psychiatric: Denies depression or anxiety. [] Heart Score: C/O Chest Pain: N/A Risk Factors: Risk Factors: DM, Current or recent (<one month) smoker, HTN, HLP, family history of CAD, obesity. Risk Scores: Score 0 - 3: 2.5% MACE over next 6 weeks - Discharge Home Score 4 - 6: 20.3% MACE over next 6 weeks - Admit for Clinical Observation Score 7 - 10: 72.7% MACE over next 6 weeks - Early Invasive Strategies Allergies: Allergies: Allergies Coded Allergies Type Severity Reaction Last Updated Verified morphine Allergy Intermediate swelling, hives 06/02/21 Yes Physical Exam: PE: Constitutional: Well developed, well nourished, no acute distress, non-toxic appearance. [] HENT: Normocephalic, atraumatic, bilateral external ears normal, oropharynx moist, no oral exudates, nose normal. [] Eyes: PERRLA, EOMI, conjunctiva normal, no discharge. [] Neck: Normal range of motion, no tenderness, supple, no stridor. [] Cardiovascular:Heart rate regular rhythm, no murmur [] Lungs & Thorax: Bilateral breath sounds clear to auscultation [] Abdomen: Bowel sounds normal, soft, no tenderness, no masses, no pulsatile masses. [] Skin: Warm, dry, no erythema, no rash. [] Back: No tenderness, no CVA tenderness. [] Extremities: No tenderness, no cyanosis, no clubbing, ROM intact, no edema. [] Neurologic: Alert and oriented X 3, normal motor function, normal sensory function, no focal deficits noted. [] Psychologic: Affect normal, judgement normal, mood normal. [] Current Patient Data: Vital Signs: Current Medications Medications (Trade) Dose Ordered Sig/Glenis Route PRN Reason Start Time Stop Time Status Last Admin Dose Admin Fentanyl Citrate (Fentanyl 2ml Vial) 100 mcg 1X ONCE IM 06/18/21 13:30 06/18/21 13:31 Ketorolac Tromethamine (Toradol Im) 60 mg 1X ONCE IM 06/18/21 13:30 06/18/21 13:31 Vital Signs Date Time Temp Pulse Resp B/P (MAP) Pulse Ox O2 Delivery O2 Flow Rate FiO2 06/18/21 12:27 98.0 87 16 122/68 (86) 97 Room Air 98.0 EKG: EKG: [] Radiology/Procedures: Radiology/Procedures: [] Course & Med Decision Making: Course & Med Decision Making Pertinent Labs and Imaging studies reviewed. (See chart for details) Patient is a 25-year-old male who has a history of sickle cell, he is a frequent ER visits ER for chronic pain due to sickle cell. Patient was seen here on the 23 this month for the same problem. Work-up did not show any acute problem. Patient'S sickle cell doctor at [facility] somehow he chose not to go there and came here instead. Patient is in no acute distress, patient was readi serene on the phone when I came to examine him. Patient had no fever, no nausea vomiting. There is no need to do any diagnostic work-up today. Patient was given shot of pain medication. Patient was advised to follow-up with a sickle cell doctor at [facility]. Candelario Disclaimer: Candelario Disclaimer: This electronic medical record was generated, in whole or in part, using a voice recognition dictation system. Departure Departure Impression: Primary Impression: Sickle cell pain crisis Disposition: 01 HOME / SELF CARE / HOMELESS Condition: STABLE Referrals: NON,STAFF (PCP) Please follow-up with your doctor in the sickle cell clinic at [facility] this week. Patient Instructions: Sickle Cell Pain Crisis BRYAN HOFFMAN DO Jun 18, 2021 13:05
[2021-06-18 13:30] VITALS: BP 113/69
[2021-06-18] MEDS ORDERED: KETOROLAC 60 MG/2 ML VIAL. IM ONE (13:30)
[2021-06-18] MEDS ORDERED: fentaNYL PF VIAL 100 MCG/2 ML VIAL IM ONE (13:30)
== END 2021-06-18 13:44 | disposition home or self-care (01) ==
LOC: ER 11:31
DX: D57.00 Hb-SS disease with crisis, unspecified (principal); F17.200 Nicotine dependence, unspecified, uncomplicated; Z88.5 Allergy status to narcotic agent
CPT/HCPCS: 96372; 99284; J1885; J3010

== ENCOUNTER 2021-07-02 08:28 | Emergency (ER) | payer BC, MEDICARE ==
[~2021-07-02] VITALS: Ht 175.3 cm; Wt 85.3 kg
[2021-07-02] MEDS ORDERED: fentaNYL PF VIAL 100 MCG/2 ML VIAL IM ONE (09:15)
[2021-07-02] MEDS ORDERED: KETOROLAC 30 MG/ML VIAL. IM ONE (09:15)
--- NOTE | 2021-07-02 09:19 | PHYS DOC ---
Past Medical History Past Medical History: Sickle Cell Disease, Other Additional Past Medical Histor: sickle cell anemia, COVID-19 Past Surgical History: Other Additional Past Surgical Histo: R KNEE SX Smoking Status: Current Some Day Smoker Alcohol Use: None Drug Use: None, Marijuana General Adult EDM: Chief Complaint: PAIN CONTROL HPI: HPI: Patient is a 26-year-old male who presents to the emergency department for pain control. Patient has sickle cell and he takes 15 mg of oxycodone and states that that is not helping his pain, he last took his dose yesterday. He is reporting pain to his low back and lower extremities. He rates the pain 8 out of 10. He was seen in this ER on June 18 for same complaint. He states that he was inpatient at [facility] on June 23. He had his last appointment with his doctor at [facility] on June 30. Patient reports that this is his typical pain is not worse than normal but his oxycodone is just not improving his pain. Patient denies fevers, nausea, vomiting, shortness of breath, coughing. His vital signs are stable and he is in no acute distress at this time, he is currently eating a pop tart. Review of Systems: Review of Systems: Constitutional: See HPI Respiratory: See HPI GI: HPI Musculoskeletal: HPI Heart Score: C/O Chest Pain: N/A Risk Factors: Risk Factors: DM, Current or recent (<one month) smoker, HTN, HLP, family history of CAD, obesity. Risk Scores: Score 0 - 3: 2.5% MACE over next 6 weeks - Discharge Home Score 4 - 6: 20.3% MACE over next 6 weeks - Admit for Clinical Observation Score 7 - 10: 72.7% MACE over next 6 weeks - Early Invasive Strategies Allergies: Allergies: Allergies Coded Allergies Type Severity Reaction Last Updated Verified morphine Allergy Intermediate swelling, hives 06/02/21 Yes Physical Exam: PE: Constitutional: Well developed, well nourished, no acute distress, non-toxic appearance. [] HENT: Normocephalic, atraumatic, bilateral external ears normal, oropharynx moist, no oral exudates, nose normal. [] Eyes: PERRL, EOMI, conjunctiva normal, no discharge. [] Neck: Normal range of motion, no stridor Cardiovascular:Heart rate regular rhythm, no murmur [] Lungs & Thorax: Bilateral breath sounds clear to auscultation [] Abdomen: Bowel sounds normal, soft, no tenderness, no masses, no pulsatile masses. [] Skin: Warm, dry, no erythema, no rash. [] Back: No bony spinal tenderness, normal range of motion Extremities: No tenderness, no cyanosis, no clubbing, ROM intact, no edema. [] Neurologic: Alert and oriented X 3, normal motor function, normal sensory function, no focal deficits noted. [] Psychologic: Affect normal, judgement normal, mood normal. [] EKG: EKG: [] Radiology/Procedures: Radiology/Procedures: [] Course & Med Decision Making: Course & Med Decision Making Pertinent Labs and Imaging studies reviewed. (See chart for details) Patient presents to the emergency department for pain control. Patient has sickle cell and he takes 15 mg of oxycodone and states that that is not helping his pain, he last took his dose yesterday. He is reporting pain to his low back and lower extremities. He rates the pain 8 out of 10. He was seen in this ER on June 18 for same complaint. He states that he was inpatient at [facility] on June 23. He had his last appointment with his doctor at [facility] on June 30. Patient reports that this is his typical pain is not worse than normal but his oxycodone is just not improving his pain. Patient denies fevers, nausea, vomiting, shortness of breath, coughing. His vital signs are stable and he is in no acute distress at this time, he is currently eating a pop tart. I offered patient blood work and he declined stating that he is just here for pain management. He reports having an appointment with [facility] within the last 2 days. He reports that this is his typical pain it is not worse than normal. His vital signs are stable and he appears to be well-hydrated. Patient put on his call light and asked the nurse to be discharged as he is feeling much better following treatment in the ER. Patient treated with pain medication in the ER. Patient advised to increase his fluids, hydrate. He is also advised to continue taking his oxycodone as previously prescribed and follow-up with his doctor at [facility]. I discussed with patient all findings and diagnostic testing as well as the need to follow-up with PCP for further evaluation and treatment or return to the ER if any new or worsening symptoms. Strict return precautions were also discussed at length. Patient voiced understanding and agreement with the plan. Patient is hemodynamically stable at the time of disposition. Candelario Disclaimer: Candelario Disclaimer: This electronic medical record was generated, in whole or in part, using a voice recognition dictation system. Departure Departure Impression: Primary Impression: Sickle-cell disease with pain Disposition: HOME / SELF CARE / HOMELESS Condition: GOOD Referrals: NON,STAFF (PCP) Patient Instructions: Sickle Cell Pain Crisis Additional Instructions: You were seen in the emergency department today for pain control. You were treated with intramuscular pain medications. At home continue taking take your oxycodone as previously prescribed. Increase your fluids and ensure good hydration. Follow-up with your doctor at [facility] tomorrow regarding your ER visit, I would advise you to call them when you are discharged from the ER. Return to the emergency department if you develop worsening of your pain, fevers, intractable nausea or vomiting, shortness of breath, chest pain, lightheadedness or any new or worsening concerns. EMERGENCY DEPARTMENT GENERAL DISCHARGE INSTRUCTIONS Thank you for coming to [facility] Emergency Department (ED) today and trusting us with you care. We trust that you had a positive experience in our Emergency Department. If you wish to speak to the department management, you may call the Director at [phone]. YOUR FOLLOW UP INSTRUCTIONS ARE FOLLOWS: 1. Do you have a private Doctor? If you do not have a private doctor, please ask for a resource list of physicians or clinics that may be able to assist you with follow up care. 2. The Emergency Physicain has interpreted your x-rays. The X-Ray specialist will also review them. If there is a change in the findings, you will be notified in 48 hours when at all possible. 3. A lab test or culture has been done, your results will be reviewed and you will be notified if you need a change in treatment. ADDITIONAL INSTRUCTIONS AND INFORMATION: 1. Your care today has been supervised by a physician who is specially trained in emergency care. Many problems require more than one evaluation for a complete diagnosis and treatment. We recommend that you schedule your follow up appointment as recommended to ensure complete treatment of you illness or injury. If you are unable to obtain follow up care and continue to have a problem, or if your condition worsens, we recommend that you return to the ED. 2. We are not able to safely determine your condition over the phone nor are we able to give sound medical advice over the phone. For these safety reasons, if you call for medical advice we will ask you to come to the ED for further evaluation. 3. If you have any questions regarding these discharge instructions please call the ED at [phone]. SAFETY INFORMATION: In the interest of safety, wellness, and injury prevention; we encourage you to wear your sealbelt, if you smoke; quite smoking, and we encourage family to use a protective helmet for bicycling and other sporting events that present an increased risk for head injury. IF YOUR SYMPTOMS WORSEN OR NEW SYMPTOMS DEVELOP, OR YOU HAVE CONCERNS ABOUT YOUR CONDITION; OR IF YOUR CONDITION WORSENS WHILE YOU ARE WAITING FOR YOUR FOLLOW UP APPOINTMENT; EITHER CONTACT YOUR PRIMARY CARE DOCTOR, THE PHYSICIAN WHOSE NAME AND NUMBER YOU WERE GIVEN, OR RETURN TO THE ED IMMEDIATELY. ALYSIA COSME APRN Jul 02, 2021 09:19
[2021-07-02 10:35] VITALS: BP 124/60
== END 2021-07-02 10:38 | disposition home or self-care (01) ==
LOC: ER 08:28
DX: D57.00 Hb-SS disease with crisis, unspecified (principal); F17.200 Nicotine dependence, unspecified, uncomplicated; Z88.5 Allergy status to narcotic agent
CPT/HCPCS: 96372; 99284; J1885; J3010

== ENCOUNTER 2021-07-13 06:51 | Emergency (ER) | payer BC, MEDICARE ==
[~2021-07-13] VITALS: Ht 175.3 cm; Wt 85.0 kg
[2021-07-13] MEDS ORDERED: IV NORMAL SALINE 1000ML BAG 1,000 ML IV ONE (07:15)
[2021-07-13] MEDS ORDERED: IV 1/2 NORMAL SALINE 1,000 ML IV ONE (07:15)
[2021-07-13] MEDS ORDERED: HYDROmorphone 2 MG/ML VIAL IVP ONE ×2 (07:15→09:00)
[2021-07-13 07:48] LABS: BASO # 0.2 x10^3/uL (0.0-0.2); BASO % 3 % (0-3); EOS # 0.2 x10^3/uL (0.0-0.7); EOS % 3 % (0-3); HEMOGLOBIN 9.5 g/dL (13.0-17.5); LYMPH # 2.3 x10^3/uL (1.0-4.8); LYMPH % 31 % (24-48); MEAN CORPUSCULAR HEMOGLOBIN 30 pg (25-35); MEAN CORPUSCULAR HGB CONC 35 g/dL (31-37); MEAN CORPUSCULAR VOLUME 85 fL (79-100); MONO # 0.7 x10^3/uL (0.0-1.1); MONO % 10 % (0-9); NEUT % 54 % (31-73); PLATELET COUNT 365 x10^3/uL (140-400); RED BLOOD COUNT 3.19 x10^6/uL (4.30-5.70); RED CELL DISTRIBUTION WIDTH 23.6 % (11.5-14.5); WHITE BLOOD COUNT 7.5 x10^3/uL (4.0-11.0)
[2021-07-13 07:59] LABS: CALCIUM 8.6 mg/dL (8.5-10.1); CREATININE 0.5 mg/dL (0.7-1.3); GFR 247.2; POTASSIUM 3.7 mmol/L (3.5-5.1)
[2021-07-13 08:06] LABS: ALBUMIN/GLOBULIN RATIO 1.3 (1.0-1.7); TOTAL BILIRUBIN 1.9 mg/dL (0.2-1.0); TOTAL PROTEIN 7.1 g/dL (6.4-8.2)
[2021-07-13 10:24] LABS: PLT ESTIMATE ADEQUATE (ADEQUATE)
[2021-07-13 10:25] LABS: POLYCHROMASIA PRESENT; SICKLE CELLS PRESENT; TARGET CELLS PRESENT
[2021-07-13 10:26] LABS: ANISOCYTOSIS PRESENT
[2021-07-13 10:27] LABS: HOWELL-JOLLY BODIES PRESENT; SPHEROCYTES OCC
[2021-07-13 10:35] LABS: BILIRUBIN,URINE NEGATIVE (NEG); CLARITY,URINE CLEAR; COLOR,URINE YELLOW; NITRITE,URINE NEGATIVE (NEG); PH,URINE 6.5 (<5.0-8.0); PROTEIN,URINE NEGATIVE (NEG-TRACE)
[2021-07-13 10:50] LABS: BACTERIA,URINE 0 /HPF (0-FEW); RBC,URINE 0 /HPF (0-2); WBC,URINE 0 /HPF (0-4)
--- NOTE | 2021-07-13 11:25 | PHYS DOC ---
Past Medical History Past Medical History: Sickle Cell Disease, Other Additional Past Medical Histor: sickle cell anemia, COVID-19 Past Surgical History: No Surgical History Additional Past Surgical Histo: R KNEE SX Smoking Status: Current Every Day Smoker Alcohol Use: None Drug Use: None, Marijuana General Adult EDM: Chief Complaint: PAIN CONTROL HPI: HPI: 26 yo M, well-known to this emergency department by myself and other providers, past medical history of sickle cell pain, presents the ED with complaints of " I have pain all over," no relief with his oxycodone prescribed by his primary care physician. States he just got off work at [employer] and "think I overdid it." States he has chronic low back pain. Is not out of his oxycodone medication. Review of Systems: Review of Systems: Constitutional: Denies fever or chills. [] Eyes: Denies change in visual acuity. [] HENT: Denies nasal congestion or sore throat. [] Respiratory: Denies cough or shortness of breath. [] Cardiovascular: Denies chest pain or edema or hemoptysis GI: Denies abdominal pain, nausea, vomiting, bloody stools or diarrhea. [] : Denies saddle anesthesia or incontinence Musculoskeletal: Denies midline back pain or joint pain. [] Integument: Denies rash or diaphoresis Neurologic: Denies headache, focal weakness or sensory changes. [] Endocrine: Denies polyuria or polydipsia. [] Lymphatic: Denies swollen glands. [] Psychiatric: Denies depression or anxiety. [] Heart Score: C/O Chest Pain: No Risk Factors: Risk Factors: DM, Current or recent (<one month) smoker, HTN, HLP, family history of CAD, obesity. Risk Scores: Score 0 - 3: 2.5% MACE over next 6 weeks - Discharge Home Score 4 - 6: 20.3% MACE over next 6 weeks - Admit for Clinical Observation Score 7 - 10: 72.7% MACE over next 6 weeks - Early Invasive Strategies Current Medications: Current Medications Medications (Trade) Dose Ordered Sig/Glenis Start Time Stop Time Status Last Admin Dose Admin Hydromorphone HCl (Dilaudid) 1 mg 1X ONCE 07/13/21 09:00 07/13/21 09:08 DC 07/13/21 09:15 1 MG Sodium Chloride 1,000 ml @ 125 mls/hr 1X ONCE 07/13/21 07:15 07/13/21 15:14 07/13/21 08:00 125 MLS/HR Allergies: Allergies: Allergies Coded Allergies Type Severity Reaction Last Updated Verified morphine Allergy Intermediate swelling, hives 07/13/21 Yes Physical Exam: PE: Constitutional: Well developed, well nourished, no acute distress, non-toxic appearance. HENT: Normocephalic, atraumatic, slightly dry mucous membranes Eyes: EOMI, conjunctiva normal, no discharge. Neck: Normal range of motion, supple, Cardiovascular: S1/2 present, regular rhythm Lungs & Thorax: Speaking in full sentences, bilateral equal chest rise, no tachypnea or increased work of breathing Abdomen: soft, no tenderness, Skin: Warm, dry, no erythema, no rash. [] Back: No midline tenderness, no CVA tenderness, reports lumbar paraspinal pain that cannot be reproduced on physical exam Extremities: No tenderness, no cyanosis, no lower extremity edema Neurologic: Alert and oriented X 3, normal motor function, normal sensory function, no focal deficits noted. [] Psychologic: Affect normal, judgement normal, mood normal. [] Current Patient Data: Labs: Laboratory Tests Test 07/13/21 07:38 07/13/21 10:23 White Blood Count 7.5 x10^3/uL (4.0-11.0) Red Blood Count 3.21 x10^6/uL (4.30-5.70) L Hemoglobin 9.5 g/dL (13.0-17.5) L Hematocrit 27.0 % (39.0-53.0) L Mean Corpuscular Volume 85 fL (79-100) Mean Corpuscular Hemoglobin 30 pg (25-35) Mean Corpuscular Hemoglobin Concent 35 g/dL (31-37) Red Cell Distribution Width 23.6 % (11.5-14.5) H Platelet Count 365 x10^3/uL (140-400) Neutrophils (%) (Auto) 54 % (31-73) Lymphocytes (%) (Auto) 31 % (24-48) Monocytes (%) (Auto) 10 % (0-9) H Eosinophils (%) (Auto) 3 % (0-3) Basophils (%) (Auto) 3 % (0-3) Neutrophils # (Auto) 4.0 x10^3/uL (1.8-7.7) Lymphocytes # (Auto) 2.3 x10^3/uL (1.0-4.8) Monocytes # (Auto) 0.7 x10^3/uL (0.0-1.1) Eosinophils # (Auto) 0.2 x10^3/uL (0.0-0.7) Basophils # (Auto) 0.2 x10^3/uL (0.0-0.2) Platelet Estimate Adequate (ADEQUATE) Polychromasia Present Anisocytosis Present Spherocytes Occ Sickle Cells Present Target Cells Present [place] Bodies Present Absolute Reticulocyte Count 0.121 x10^6/uL (0.020-0.120) Percent Reticulocyte Count 3.8 % (0.5-2.3) H Immature Reticulocyte Fraction 0.72 (0.20-0.60) H Sodium Level 142 mmol/L (136-145) Potassium Level 3.7 mmol/L (3.5-5.1) Chloride Level 106 mmol/L (98-107) Carbon Dioxide Level 22 mmol/L (21-32) Anion Gap 14 (6-14) Blood Urea Nitrogen 6 mg/dL (8-26) L Creatinine 0.5 mg/dL (0.7-1.3) L Estimated GFR (Cockcroft-Gault) 247.2 BUN/Creatinine Ratio 12 (6-20) Glucose Level 93 mg/dL (70-99) Calcium Level 8.6 mg/dL (8.5-10.1) Total Bilirubin 1.9 mg/dL (0.2-1.0) H Aspartate Amino Transferase (AST) 38 U/L (15-37) H Alanine Aminotransferase (ALT) 28 U/L (16-63) Alkaline Phosphatase 105 U/L (46-116) Total Protein 7.1 g/dL (6.4-8.2) Albumin 4.0 g/dL (3.4-5.0) Albumin/Globulin Ratio 1.3 (1.0-1.7) Urine Collection Type Unknown Urine Color Yellow Urine Clarity Clear Urine pH 6.5 (<5.0-8.0) Urine Specific [place] 1.010 (1.000-1.030) Urine Protein Negative mg/dL (NEG-TRACE) Urine Glucose (UA) Negative mg/dL (NEG) Urine Ketones (Stick) Negative mg/dL (NEG) Urine Blood Negative (NEG) Urine Nitrite Negative (NEG) Urine Bilirubin Negative (NEG) Urine Urobilinogen Dipstick 1.0 mg/dL (0.2 mg/dL) Urine Leukocyte Esterase Negative (NEG) Urine RBC 0 /HPF (0-2) Urine WBC 0 /HPF (0-4) Urine Squamous Epithelial Cells Few /LPF Urine Bacteria 0 /HPF (0-FEW) Urine Mucus Slight /LPF Laboratory Tests 07/13/21 07:38 Laboratory Tests 07/13/21 07:38 Vital Signs: Vital Signs Date Time Temp Pulse Resp B/P (MAP) Pulse Ox O2 Delivery O2 Flow Rate FiO2 07/13/21 09:33 108 18 100/67 (78) 97 Room Air 07/13/21 07:04 98.1 98.1 EKG: EKG: [] Radiology/Procedures: Radiology/Procedures: [] Course & Med Decision Making: Course & Med Decision Making Pertinent Labs and Imaging studies reviewed. (See chart for details) Concern for mild sickle cell pain crisis in a well-appearing male. Labs unremarkable with no leukocytosis. Patient afebrile and hemodynamically stable. Has no active chest pain or difficulties breathing. Will discharge home with strict ED return precautions were given for worsening pain, chest pain, difficulties breathing or abdominal pain. Encouraged urgent outpatient follow-up with PMD and hepatology for management of chronic hyperbilirubinemia. Life- threatening processes were considered but are low suspicion at this time, given history, physical exam and ED workup. Pt was educated on all prescription medications and adverse effects. All patient's questions were answered and pt was stable at time of discharge. Life/limb-threatening differential includes but is not limited to, end organ damage/sepsis, trauma/abuse/neglect, neurologic deficit, alcohol/drug ingestion, toxidrome, suicidal/homicidal ideations plans or attempts, psychosis or mental illness resulting in self neglect and inability to care for self. I have spoken with the patient and/or caregivers. I explained the patient's condition, diagnoses and treatment plan based on the information available to me at this time. I have answered the patient and/or caregiver's questions and addressed any concerns. The patient and/or caregivers have a good understanding of patient's diagnosis, condition and treatment plan as can be expected at this point. Vital signs have been stable. Patient's condition is stable and appropriate for discharge from the emergency department. Patient will pursue further outpatient evaluation with primary care physician or other designated or consulting physician as outlined in the discharge instructions. The patient and/or caregivers are agreeable to this plan of care and follow-up instructions have been explained in detail. The patient and/or caregivers have received these instructions in written form and have expressed an understanding of the discharge instructions. The patient and/or caregivers are aware that any significant change of condition or worsening of symptoms should prompt immediate return to this or the closest emergency department or call to 911. Candelario Disclaimer: [employer] Disclaimer: This electronic medical record was generated, in whole or in part, using a voice recognition dictation system. Departure Departure Impression: Primary Impression: Sickle cell pain crisis Additional Impressions: Normocytic anemia Hyperbilirubinemia Disposition: HOME / SELF CARE / HOMELESS Condition: STABLE Referrals: NON,STAFF (PCP) Follow-up with your primary care physician in 24 to 48 hours OR FOLLOW UP WITH FAMILY MEDICINE: [address] [facility] [place], [facility] [address] [place] [address] Patient Instructions: Anemia, Nonspecific-Brief, Sickle Cell Pain Crisis Additional Instructions: FOLLOW UP WITH HEPATOLOGY: FOR DEFINITIVE MANAGEMENT of chronic hype rbilirubinemia [facility] [address] [place] [address] to schedule appointment: [phone] EMERGENCY DEPARTMENT GENERAL DISCHARGE INSTRUCTIONS Thank you for coming to [facility] Emergency Department (ED) today and trusting us with you care. We trust that you had a positive experience in our Emergency Department. If you wish to speak to the department management, you may call the Director at [phone]. YOUR FOLLOW UP INSTRUCTIONS ARE FOLLOWS: 1. Do you have a private Doctor? If you do not have a private doctor, please ask for a resource list of physicians or clinics that may be able to assist you with follow up care. 2. The Emergency Physicain has interpreted your x-rays. The X-Ray specialist will also review them. If there is a change in the findings, you will be notified in 48 hours when at all possible. 3. A lab test or culture has been done, your results will be reviewed and you will be notified if you need a change in treatment. ADDITIONAL INSTRUCTIONS AND INFORMATION: 1. Your care today has been supervised by a physician who is specially trained in emergency care. Many problems require more than one evaluation for a complete diagnosis and treatment. We recommend that you schedule your follow up appointment as recommended to ensure complete treatment of you illness or injury. If you are unable to obtain follow up care and continue to have a problem, or if your condition worsens, we recommend that you return to the ED. 2. We are not able to safely determine your condition over the phone nor are we able to give sound medical advice over the phone. For these safety reasons, if you call for medical advice we will ask you to come to the ED for further evaluation. 3. If you have any questions regarding these discharge instructions please call the ED at [phone]. SAFETY INFORMATION: In the interest of safety, wellness, and injury prevention; we encourage you to wear your sealbelt, if you smoke; quite smoking, and we encourage family to use a protective helmet for bicycling and other sporting events that present an increased risk for head injury. IF YOUR SYMPTOMS WORSEN OR NEW SYMPTOMS DEVELOP, OR YOU HAVE CONCERNS ABOUT YOUR CONDITION; OR IF YOUR CONDITION WORSENS WHILE YOU ARE WAITING FOR YOUR FOLLOW UP APPOINTMEN T; EITHER CONTACT YOUR PRIMARY CARE DOCTOR, THE PHYSICIAN WHOSE NAME AND NUMBER YOU WERE GIVEN, OR RETURN TO THE ED IMMEDIATELY. [facility] DO Jul 13, 2021 11:25
[2021-07-13 11:37] VITALS: BP 136/80
== END 2021-07-13 11:38 | disposition home or self-care (01) ==
LOC: ER 06:51
DX: D57.00 Hb-SS disease with crisis, unspecified (principal); D64.9 Anemia, unspecified; E80.6 Other disorders of bilirubin metabolism; F17.200 Nicotine dependence, unspecified, uncomplicated; Z88.5 Allergy status to narcotic agent
CPT/HCPCS: 36415; 80053; 81001; 85025; 85045; 96361; 96374; 96376; 99284; J1170; J3490

== ENCOUNTER 2021-07-14 22:29 | Emergency (ER) | payer BC, MEDICARE ==
[~2021-07-14] VITALS: Ht 175.3 cm; Wt 85.0 kg
--- NOTE | 2021-07-14 22:51 | PHYS DOC ---
Past Medical History Past Medical History: Sickle Cell Disease, Other Additional Past Medical Histor: sickle cell anemia, COVID-19 Past Surgical History: No Surgical History Additional Past Surgical Histo: R KNEE SX Smoking Status: Current Every Day Smoker Alcohol Use: None Drug Use: None, Marijuana General Adult EDM: Chief Complaint: PAIN CONTROL HPI: HPI: Patient is a 26 year old male with history of sickle cell presents with the chief complaint of back and leg pain x 3 days. Patient states current pain is typical of his sickle cell pain. Onset 3 days ago progressively getting worse. Patient has been taking his medications with no relief. Pain is located in his lower back and legs. Patient is alert and oriented x4. He appears in no acute distress. History obt ained from the patient. He presented to the emergency department by private vehicle. Review of Systems: Review of Systems: Review of systems: Constitutional symptoms- No fever, no chills. Eyes- No Discharge, No Visual Loss Respiratory symptoms- No shortness of breath, No wheezing, No Dyspnea on Exertion Cardiovascular Systems; No chest pain, No Palpitations, No syncope Gastrointestinal symptoms: NO abdominal pain, no nausea, no vomiting or diarrhea. Genitourinary symptoms: No dysuria. Musculoskeletal symptoms: Positive back pain positive leg pain NEUROLOGICAL Symptoms: No headache, no generalized weakness; No focal Weakness Skin: No rash. Heart Score: C/O Chest Pain: N/A Risk Factors: Risk Factors: DM, Current or recent (<one month) smoker, HTN, HLP, family history of CAD, obesity. Risk Scores: Score 0 - 3: 2.5% MACE over next 6 weeks - Discharge Home Score 4 - 6: 20.3% MACE over next 6 weeks - Admit for Clinical Observation Score 7 - 10: 72.7% MACE over next 6 weeks - Early Invasive Strategies Allergies: Allergies: Allergies Coded Allergies Type Severity Reaction Last Updated Verified morphine Allergy Intermediate swelling, hives 07/13/21 Yes Physical Exam: PE: Constitutional: Well developed, well nourished, no acute distress, non-toxic appearance. [] HENT: Normocephalic, atraumatic, bilateral external ears normal, oropharynx moist, no oral exudates, nose normal. [] Eyes: PERRLA, EOMI, conjunctiva normal, no discharge. [] Neck: Normal range of motion, no tenderness, supple, no stridor. [] Cardiovascular:Heart rate regular rhythm, no murmur [] Lungs & Thorax: Bilateral breath sounds clear to auscultation [] Abdomen: Bowel sounds normal, soft, no tenderness, no masses, no pulsatile masses. [] Skin: Warm, dry, no erythema, no rash. [] Back: No tenderness, no CVA tenderness. [] Extremities: No tenderness, no cyanosis, no clubbing, ROM intact, no edema. [] Neurologic: Alert and oriented X 3, normal motor function, normal sensory function, no focal deficits noted. [] Psychologic: Affect normal, judgement normal, mood normal. [] EKG: EKG: [] Radiology/Procedures: Radiology/Procedures: [] Course & Med Decision Making: Course & Med Decision Making Pertinent Labs and Imaging studies reviewed. (See chart for details) [] Patient was treated with fentanyl x2. He also received a liter of IV fluids. Patient well-known to me he appears in no acute distress I did not order labs. Patient symptoms improved post treatment. Candelario Disclaimer: Candelario Disclaimer: This electronic medical record was generated, in whole or in part, using a voice recognition dictation system. Departure Departure Impression: Primary Impression: Sickle-cell disease with pain Additional Impression: Chronic pain syndrome Disposition: HOME / SELF CARE / HOMELESS Condition: STABLE Referrals: NON,STAFF (PCP) Patient Instructions: Chronic Pain JAYY PRESLEY I DO Jul 14, 2021 22:51
[2021-07-14] MEDS ORDERED: fentaNYL PF VIAL 100 MCG/2 ML VIAL IVP ONE (23:30)
[2021-07-14] MEDS ORDERED: IV NORMAL SALINE 1000ML BAG 1,000 ML IV ONE (23:30)
[2021-07-15 00:54] VITALS: BP 119/58
[2021-07-15] MEDS ORDERED: fentaNYL PF VIAL 100 MCG/2 ML VIAL IVP ONE (01:00)
== END 2021-07-15 01:04 | disposition home or self-care (01) ==
LOC: ER 22:29
DX: D57.00 Hb-SS disease with crisis, unspecified (principal); F17.200 Nicotine dependence, unspecified, uncomplicated; Z88.5 Allergy status to narcotic agent
CPT/HCPCS: 96361; 96374; 96376; 99284; J3010; J7030; 99285-25

== ENCOUNTER 2021-07-28 07:55 | Inpatient (IN) | payer BC, MEDICARE ==
[~2021-07-28] VITALS: Ht 175.3 cm; Wt 84.5 kg
[2021-07-28] MEDS ORDERED: IV NORMAL SALINE 1000ML BAG 1,000 ML IV ONE (13:45)
[2021-07-28] MEDS ORDERED: ONDANSETRON PF 4 MG/2 ML VIAL. IVP ONE (13:45)
[2021-07-28] MEDS ORDERED: diphenhydrAMINE 50 MG/ML VIAL IVP ONE (13:45)
[2021-07-28] MEDS ORDERED: fentaNYL PF VIAL 100 MCG/2 ML VIAL IVP ONE (13:45)
[2021-07-28 13:55] LABS: BASO # 0.1 x10^3/uL (0.0-0.2); BASO % 1 % (0-3); EOS # 0.3 x10^3/uL (0.0-0.7); EOS % 2 % (0-3); HEMATOCRIT 25.9 % (39.0-53.0); HEMOGLOBIN 9.1 g/dL (13.0-17.5); LYMPH # 2.9 x10^3/uL (1.0-4.8); LYMPH % 20 % (24-48); MEAN CORPUSCULAR HEMOGLOBIN 29 pg (25-35); MEAN CORPUSCULAR HGB CONC 35 g/dL (31-37); MEAN CORPUSCULAR VOLUME 81 fL (79-100); MONO # 1.3 x10^3/uL (0.0-1.1); MONO % 9 % (0-9); NEUT # 9.9 x10^3/uL (1.8-7.7); NEUT % 68 % (31-73); PLATELET COUNT 554 x10^3/uL (140-400); RED BLOOD COUNT 3.19 x10^6/uL (4.30-5.70); RED CELL DISTRIBUTION WIDTH 26.4 % (11.5-14.5); WHITE BLOOD COUNT 14.5 x10^3/uL (4.0-11.0)
[2021-07-28 14:05] LABS: ANION GAP 13 (6-14); BLOOD UREA NITROGEN 5 mg/dL (8-26); BUN/CREATININE RATIO 13 (6-20); CALCIUM 8.9 mg/dL (8.5-10.1); CARBON DIOXIDE 25 mmol/L (21-32); CHLORIDE 100 mmol/L (98-107); CREATININE 0.4 mg/dL (0.7-1.3); GFR > 300.0; GLUCOSE 91 mg/dL (70-99); POTASSIUM 4.6 mmol/L (3.5-5.1); SODIUM 138 mmol/L (136-145)
--- NOTE | 2021-07-28 14:06 | RAD ---
EXAM: XR CHEST 1V 07/28/2021 1:48 PM CLINICAL INDICATION: Hypoxia COMPARISON: Chest radiograph 04/19/2021 TECHNIQUE: AP upright view of the chest FINDINGS: The heart is normal size. There are new ill-defined bibasilar opacities. No pleural effusi on or pneumothorax. No acute osseous abnormalities. IMPRESSION: New ill-defined bibasilar opacities suspicious for atypical pneumonia. Electronically signed by: Amirah Aleman MD (07/28/2021 2:04 PM) [id number]
[2021-07-28 14:11] LABS: ALBUMIN/GLOBULIN RATIO 1.1 (1.0-1.7); ALK PHOS 152 U/L (46-116); ALT (SGPT) 60 U/L (16-63); AST (SGOT) 54 U/L (15-37); TOTAL BILIRUBIN 1.8 mg/dL (0.2-1.0); TOTAL PROTEIN 7.8 g/dL (6.4-8.2)
[2021-07-28 14:20] LABS: PLT ESTIMATE INCREASED (ADEQUATE); POIKILOCYTOSIS MARKED
[2021-07-28 14:21] LABS: ANISOCYTOSIS MARKED; POLYCHROMASIA PRESENT; SICKLE CELLS PRESENT; TARGET CELLS PRESENT
[2021-07-28 14:22] LABS: HOWELL-JOLLY BODIES PRESENT
[2021-07-28 14:23] LABS: SCHISTOCYTES FEW
[2021-07-28 14:30] LABS: INFLUENZA A PATIENT NEGATIVE (NEGATIVE); INFLUENZA B PATIENT NEGATIVE (NEGATIVE)
[2021-07-28] MEDS ORDERED: PIPERACILLIN/TAZOBACTAM 3.375 GM in IV NORMAL SALINE 50ML 50 ML IV ONE (15:00)
[2021-07-28 15:37] LABS: BILIRUBIN,URINE NEGATIVE (NEG); COLOR,URINE YELLOW; NITRITE,URINE NEGATIVE (NEG); PH,URINE 5.5 (<5.0-8.0); PROTEIN,URINE NEGATIVE (NEG-TRACE)
[2021-07-28 15:38] LABS: CLARITY,URINE HAZY
[2021-07-28 15:43] LABS: BARBITURATES NEG (NEG); BENZODIAZEPINES NEG (NEG); CANNABINOIDS NEG (NEG); COCAINE NEG (NEG); METHADONE NEG (NEG); OPIATES POS (NEG); PHENCYCLIDINE NEG (NEG)
--- NOTE | 2021-07-28 15:43 | PDOC1 ---
History and Physical Date of Admission Date of Admission DATE: 07/28/21 TIME: 15:37 Identification/Chief Complaint Chief Complaint Chest pain Source Source: Patient History of Present Illness History of Present Illness Mr Montesinos is a 26-year-old male with past history of sickle cell disease, AVN of right hip who comes to ED c/o shortness of breath, cough and diffuse myalgias and chest pain for a week that has been progressive. No fever or chills, but has diffuse myalgias, not able to care for himself. WBC 14.5 with left shift Hb 9.1 with retakes 0.2 BMP no abnormalities bilirubin 1.8, AST 54, ALT 60, alkaline phosphatase 152 Chest radiograph with bibasilar opacities He is up-to-date with COVID-19 vaccines [employer] and has recovered from COVID 19 this past January 2021 Started on IVF, levaquin, admitted for further care. Past Medical History Pulmonary: No pertinent hx Heme/Onc: Sickle cell disease Past Surgical History Past Surgical History: No pertinent history Family History Family History: High Cholestrol, Hypertension, Other Social History Smoke: No ALCOHOL: occassional Drugs: Marijuana Current Medications Current Medications Current Medications Ondansetron HCl (Zofran) 4 mg 1X ONCE IVP Last administered on 07/28/21at 13:55; Start 07/28/21 at 13:45; Stop 07/28/21 at 13:47; Status DC Fentanyl Citrate (Fentanyl 2ml Vial) 50 mcg 1X ONCE IVP Last administered on 07/28/21at 13:55; Start 07/28/21 at 13:45; Stop 07/28/21 at 13:47; Status DC Sodium Chloride 1,000 ml @ 1,000 mls/hr 1X ONCE IV Last administered on 07/28/21at 13:50; Start 07/28/21 at 13:45; Stop 07/28/21 at 14:44; Status DC Diphenhydramine HCl (Benadryl) 25 mg 1X ONCE IVP Last administered on 07/28/21at 13:55; Start 07/28/21 at 13:45; Stop 07/28/21 at 13:47; Status DC Piperacillin Sod/ Tazobactam Sod 3.375 gm/Sodium Chloride 50 ml @ 100 mls/hr 1X ONCE IV ; Start 07/28/21 at 15:00; Stop 07/28/21 at 15:36; Status DC Levofloxacin/ Dextrose 150 ml @ 100 mls/hr DAILY IV ; Start 07/29/21 at 09:00; Stop 08/05/21 at 08:59; Status UNV Ondansetron HCl (Zofran) 4 mg PRN Q4HRS PRN IVP NAUSEA/VOMITING; Start 07/28/21 at 15:45; Status UNV Guaifenesin (Robitussin Dm) 10 ml PRN Q6HRS PRN PO COUGH; Start 07/28/21 at 15:45; Status UNV Enoxaparin Sodium (Lovenox 40mg Syringe) 40 mg Q24H SQ ; Start 07/28/21 at 18:00; Status UNV Acetaminophen (Tylenol) 650 mg PRN Q6HRS PRN PO MILD PAIN / TEMP > 100.3'F; Start 07/28/21 at 15:45; Status UNV Active Scripts Active Oxycodone Hcl 5 Mg Capsule 15 Mg PO PRN Q6HRS PRN Oxycodone HCl 5 Mg Tablet 5-10 Mg PO PRN Q6HRS PRN 3 Days Oxycontin (Oxycodone HCl) 10 Mg Tab.er.12h 1 Tab PO TID MDD 3 Tablet(s) 30 Days Oxycodone Hcl Immed.release (Oxycodone Hcl) 5 Mg Tablet 5 Mg PO PRN Q6HRS PRN Tramadol Hcl 50 Mg Tablet 50 Mg PO Q6HRS PRN Oxycodone Hcl Immed.release (Oxycodone Hcl) 5 Mg Tablet 10 Mg PO PRN Q4HRS PRN Amox Tr-K Clv 875-125 Mg Tab (Amoxicillin/Potassium Clav) 1 Each Tablet 1 Tab PO BID 7 Days Doxycycline Hyclate 100 Mg Capsule 1 Cap PO BID 7 Days Culturelle (Lactobacillus Rhamnosus Gg) 1 Each Cap.sprink 1 Cap PO BID 30 Days Dok (Docusate Sodium) 100 Mg Capsule 100 Mg PO PRN BID PRN 30 Days Mag-Al Plus Xs Suspension (Mag Hydrox/Al Hydrox/Simeth) 30 Ml Oral.susp 30 Ml PO PRN DAILY PRN 14 Days Guaifenesin 100 Mg/5 Ml Liquid 200 Mg PO PRN Q4HRS PRN 14 Days Proair Hfa (Albuterol Sulfate) 8.5 Gm Hfa.aer.ad 2.5 Mg NEB PRN Q4HRS PRN 14 Days Anaprox Ds (Naproxen Sodium) 550 Mg Tablet 1 Tab PO BID PRN 15 Days Reported [Folic Acid] 1 Mg PO DAILY Allergies Allergies: Coded Allergies: morphine (Verified Allergy, Intermediate, swelling, hives, 07/13/21) ROS General: YES: Chills, Fatigue, Malaise; No: Night Sweats, Appetite, Other PSYCHOLOGICAL ROS: No: Anxiety, Behavioral Disorder, Concentration difficultie, Decreased libido, Depression, Disorientation, Hallucinations, Hostility, Irritablity, Memory difficulties, Mood Swings, Obsessive thoughts, Physical abuse, Sexual abuse, Sleep disturbances, Suicidal ideation, Other Eyes: No Blurry vision, No Decreased vision, No Double vision, No Dry eyes, No Excessive tearing, No Eye Pain, No Itchy Eyes, No Loss of vision, No Photophobia, No Scotomata, No Uses contacts, No Uses glasses, No Other HEENT: No: Heacaches, Visual Changes, Hearing change, Nasal congestion, Nasal discharge, Oral lesions, Sinus pain, Sore Throat, Epistaxis, Sneezing, Snoring, Tinnitus, Vertigo, Vocal changes, Other ALLERGY AND IMMUNOLOGY: No: Hives, Insect Bite Sensitivity, Itchy/Watery Eyes, Nasal Congestion, Post Nasal Drip, Seasonal Allergies, Other Hematological and Lymphatic: YES: Blood Transfusions; No: Bleeding Problems, Blood Clots, Brusing, Night Sweats, Pallor, Swollen Lymph Nodes, Other ENDOCRINE: No: Breast Changes, Galactorrhea, Hair Pattern Changes, Hot Flashes, Malaise/lethargy, Mood Swings, Palpitations, Polydipsia/polyuria, Skin Changes, Temperature Intolerance, Unexpected Weight Changes, Other Breast: No New/Changing Breast Lumps, No Nipple changes, No Nipple discharge, No Other Respiratory: YES: Cough, Shortness of breath, SOB with excertion; No: Hemoptysis, Orthopnea, Pleuritic Pain, Sputum Changes, Stridor, Tachypnea, Wheezing, Other Cardiovascular: yes Chest Pain; No Palpitations, No Orthopnea, No Paroxysmal Noc. Dyspnea, No Edema, No Lt Headedness, No Other Gastrointestinal: No Nausea, No Vomiting, No Abdominal Pain, No Diarrhea, No Constipation, No Melena, No Hematochezia, No Other Genitourinary: No Dysuria, No Frequency, No Incontinence, No Hematuria, No Retention, No Discharge, No Urgency, No Pain, No Flank Pain, No Other, No , No , No , No , No , No , No Musculoskeletal: Yes Joint Pain, Yes Joint Stiffness; No Gait Disturbance, No Joint Swelling, No Muscle Pain, No Muscular Weakness, No Pain In:, No Swelling In:, No Other Neurological: No Behavorial Changes, No Bowel/Bladder ControlChng, No Confusion, No Dizziness, No Gait Disturbance, No Headaches, No Impaired Coord/balance, No Memory Loss, No Numbness/Tingling, No Seizures, No Speech Problems, No Tremors, No Visual Changes, No Weakness, No Other Skin: No Dry Skin, No Eczema, No Hair Changes, No Lumps, No Mole Changes, No Mottling, No Nail Changes, No Pruritus, No Rash, No Skin Lesion Changes, No Other, No Acne Physical Exam General: Alert, Oriented X3, Cooperative, moderate distress HEENT: Atraumatic, PERRLA, EOMI, Mucous membr. moist/pink Lungs: Other (Bibasilar crackles) Heart: S1S2, RRR, no thrills, no rubs, no gallops, no murmurs Abdomen: Normal bowel sounds, Soft, No tenderness, No hepatosplenomegaly, No masses Rectal Exam: not examined Extremities: No clubbing, No cyanosis, No edema, Normal pulses, No tenderness/swelling Skin: No rashes, No breakdown, No significant lesion Neuro: Normal gait, Normal speech, Strength at 5/5 X4 ext, Normal tone, Sensation intact, Cranial nerves 3-12 NL, Reflexes 2+ Psych/Mental Status: Mental status NL, Mood NL Vitals Vitals Vital Signs Date Time Temp Pulse Resp B/P (MAP) Pulse Ox O2 Delivery O2 Flow Rate FiO2 07/28/21 13:54 70 98 Room Air 07/28/21 13:43 131/73 (92) 07/28/21 11:48 98.1 19 98.1 Labs Labs Laboratory Tests Test 07/28/21 13:36 07/28/21 13:58 White Blood Count 14.5 x10^3/uL (4.0-11.0) Red Blood Count 3.14 x10^6/uL (4.30-5.70) Hemoglobin 9.1 g/dL (13.0-17.5) Hematocrit 25.9 % (39.0-53.0) Mean Corpuscular Volume 81 fL (79-100) Mean Corpuscular Hemoglobin 29 pg (25-35) Mean Corpuscular Hemoglobin Concent 35 g/dL (31-37) Red Cell Distribution Width 26.4 % (11.5-14.5) Platelet Count 554 x10^3/uL (140-400) Neutrophils (%) (Auto) 68 % (31-73) Lymphocytes (%) (Auto) 20 % (24-48) Monocytes (%) (Auto) 9 % (0-9) Eosinophils (%) (Auto) 2 % (0-3) Basophils (%) (Auto) 1 % (0-3) Neutrophils # (Auto) 9.9 x10^3/uL (1.8-7.7) Lymphocytes # (Auto) 2.9 x10^3/uL (1.0-4.8) Monocytes # (Auto) 1.3 x10^3/uL (0.0-1.1) Eosinophils # (Auto) 0.3 x10^3/uL (0.0-0.7) Basophils # (Auto) 0.1 x10^3/uL (0.0-0.2) Platelet Estimate Increased (ADEQUATE) Large Platelets Present Giant Platelets Present Polychromasia Present Poikilocytosis Marked Anisocytosis Marked Sickle Cells Present Target Cells Present Villaseñor-[place] Bodies Present Schistocytes Few Absolute Reticulocyte Count 0.243 x10^6/uL (0.020-0.120) Percent Reticulocyte Count 7.7 % (0.5-2.3) Immature Reticulocyte Fraction 0.68 (0.20-0.60) Sodium Level 138 mmol/L (136-145) Potassium Level 4.6 mmol/L (3.5-5.1) Chloride Level 100 mmol/L (98-107) Carbon Dioxide Level 25 mmol/L (21-32) Anion Gap 13 (6-14) Blood Urea Nitrogen 5 mg/dL (8-26) Creatinine 0.4 mg/dL (0.7-1.3) Estimated GFR (Cockcroft-Gault) > 300.0 BUN/Creatinine Ratio 13 (6-20) Glucose Level 91 mg/dL (70-99) Lactic Acid Level 0.4 mmol/L (0.4-2.0) Calcium Level 8.9 mg/dL (8.5-10.1) Total Bilirubin 1.8 mg/dL (0.2-1.0) Aspartate Amino Transf (AST/SGOT) 54 U/L (15-37) Alanine Aminotransferase (ALT/SGPT) 60 U/L (16-63) Alkaline Phosphatase 152 U/L (46-116) Total Protein 7.8 g/dL (6.4-8.2) Albumin 4.0 g/dL (3.4-5.0) Albumin/Globulin Ratio 1.1 (1.0-1.7) Procalcitonin < 0.10 ng/mL (0.00-0.10) Ethyl Alcohol Level < 10 mg/dL (0-10) Influenza Type A Antigen Negative (NEGATIVE) Influenza Type B Antigen Negative (NEGATIVE) SARS-CoV-2 Antigen (Rapid) Negative (NEGATIVE) Laboratory Tests Test 07/28/21 13:36 07/28/21 13:58 White Blood Count 14.5 x10^3/uL (4.0-11.0) Red Blood Count 3.14 x10^6/uL (4.30-5.70) Hemoglobin 9.1 g/dL (13.0-17.5) Hematocrit 25.9 % (39.0-53.0) Mean Corpuscular Volume 81 fL (79-100) Mean Corpuscular Hemoglobin 29 pg (25-35) Mean Corpuscular Hemoglobin Concent 35 g/dL (31-37) Red Cell Distribution Width 26.4 % (11.5-14.5) Platelet Count 554 x10^3/uL (140-400) Neutrophils (%) (Auto) 68 % (31-73) Lymphocytes (%) (Auto) 20 % (24-48) Monocytes (%) (Auto) 9 % (0-9) Eosinophils (%) (Auto) 2 % (0-3) Basophils (%) (Auto) 1 % (0-3) Neutrophils # (Auto) 9.9 x10^3/uL (1.8-7.7) Lymphocytes # (Auto) 2.9 x10^3/uL (1.0-4.8) Monocytes # (Auto) 1.3 x10^3/uL (0.0-1.1) Eosinophils # (Auto) 0.3 x10^3/uL (0.0-0.7) Basophils # (Auto) 0.1 x10^3/uL (0.0-0.2) Platelet Estimate Increased (ADEQUATE) Large Platelets Present Giant Platelets Present Polychromasia Present Poikilocytosis Marked Anisocytosis Marked Sickle Cells Present Target Cells Present Villaseñor-[place] Bodies Present Schistocytes Few Absolute Reticulocyte Count 0.243 x10^6/uL (0.020-0.120) Percent Reticulocyte Count 7.7 % (0.5-2.3) Immature Reticulocyte Fraction 0.68 (0.20-0.60) Sodium Level 138 mmol/L (136-145) Potassium Level 4.6 mmol/L (3.5-5.1) Chloride Level 100 mmol/L (98-107) Carbon Dioxide Level 25 mmol/L (21-32) Anion Gap 13 (6-14) Blood Urea Nitrogen 5 mg/dL (8-26) Creatinine 0.4 mg/dL (0.7-1.3) Estimated GFR (Cockcroft-Gault) > 300.0 BUN/Creatinine Ratio 13 (6-20) Glucose Level 91 mg/dL (70-99) Lactic Acid Level 0.4 mmol/L (0.4-2.0) Calcium Level 8.9 mg/dL (8.5-10.1) Total Bilirubin 1.8 mg/dL (0.2-1.0) Aspartate Amino Transf (AST/SGOT) 54 U/L (15-37) Alanine Aminotransferase (ALT/SGPT) 60 U/L (16-63) Alkaline Phosphatase 152 U/L (46-116) Total Protein 7.8 g/dL (6.4-8.2) Albumin 4.0 g/dL (3.4-5.0) Albumin/Globulin Ratio 1.1 (1.0-1.7) Procalcitonin < 0.10 ng/mL (0.00-0.10) Ethyl Alcohol Level < 10 mg/dL (0-10) Influenza Type A Antigen Negative (NEGATIVE) Influenza Type B Antigen Negative (NEGATIVE) SARS-CoV-2 Antigen (Rapid) Negative (NEGATIVE) Images Images Chest radiograph: The heart is normal size. There are new ill-defined bibasilar opacities. No pleural effusion or pneumothorax. No acute osseous abnormalities. IMPRESSION: New ill-defined bibasilar opacities suspicious for atypical pneumonia. VTE Prophylaxis Ordered VTE Prophylaxis Devices: Yes VTE Pharmacological Prophylaxi: Yes Assessment/Plan Assessment/Plan A/P: Sickle cell disease with pain crisis - Myalgias/Arthralgias - concerning for early possible chest syndrome. Will hydrate. Consult hematology. His reti culocyte % is highest it has been. vasoocclusive pain crisis and suspected CAP, atypical SS anemia - no history of CVA or blood clots but has had chest syndrome multiple times. Supposed to be on the Hydrea 1500 mg daily. 75mcg of fentanyl q90-120 minutes has been his pain regimen at [facility]. home on oxycodone 15mg q6hrs prn Leukocytosis - sepsis due to atypical pneumonia Abnormal chest x-ray, differential diagnosis viral versus bacterial pneumonia. Elevated LFTs - related to SCD, will monitor Marijuana use. Ex-smoker. H/o AVN right hip Depression Constipation Intractable back pain Pneumonia - on levaquin History of COVID-19 in 01/2021 - recovered. has since been vaccinated x2 with [place]. FEN - General diet PPX - lovenox FULL CODE Dispo - inpatient Justifications for Admission Other Justification Concern for pulmonary embolism TONIA ABDI MD Jul 28, 2021 15:43
[2021-07-28] MEDS ORDERED: guaiFENesin DM 200MG/20MG 10 ML SYRUP PO PRN (15:45)
[2021-07-28] MEDS ORDERED: DOCUSATE SODIUM 100 MG CAPSULE. PO PRN (15:45)
[2021-07-28] MEDS ORDERED: MAG HYDROX/ALUMINUM HYD/SIMETH 30 ML ORAL.SUSP PO PRN (15:45)
[2021-07-28] MEDS ORDERED: ACETAMINOPHEN 325 MG TABLET. PO PRN (15:45)
[2021-07-28] MEDS ORDERED: ONDANSETRON PF 4 MG/2 ML VIAL. IVP PRN ×2 (15:45→20:15)
[2021-07-28 15:49] LABS: BACTERIA,URINE 0 /HPF (0-FEW); RBC,URINE 0 /HPF (0-2); WBC,URINE OCC /HPF (0-4)
[2021-07-28 15:58] LABS: AMPHETAMINE/METHAMPHETAMINE NEG (NEG)
[2021-07-28] MEDS ORDERED: diphenhydrAMINE 50 MG/ML VIAL IVP PRN (17:00)
[2021-07-28] MEDS ORDERED: POLYETHYLENE GLYCOL 3350 17 GM PACKET. PO PRN (17:00)
[2021-07-28] MEDS ORDERED: SENNOSIDES/DOCUSATE 8.6/50MG TABLET. PO PRN (17:00)
[2021-07-28] MEDS: fentaNYL PF VIAL 100 MCG/2 ML VIAL IVP PRN ×3 (17:43→22:24)
--- NOTE | 2021-07-28 20:21 | PHYS DOC ---
Past Medical History Past Medical History: Sickle Cell Disease, Other Additional Past Medical Histor: sickle cell anemia, COVID-19 Past Surgical History: Other Additional Past Surgical Histo: R KNEE SX Smoking Status: Never Smoker Alcohol Use: None Drug Use: None, Marijuana General Adult EDM: Chief Complaint: PAIN CONTROL HPI: HPI: Patient is a 26 year old male with history of sickle cell disease, who presents to the ED today complaining of generalized body aches worse on his bilateral lower extremities and low back, rates the pain at 9 out of 10, describes the pain as sharp and intermittent with nothing exacerbating or relieving it. 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 Patient denies any fever. He states he is fully vaccinated against COVID-19. Review of Systems: Review of Systems: Constitutional: Reports generalized body aches, denies fever or chills. [] Eyes: Denies change in visual acuity. [] HENT: Denies nasal congestion or sore throat. [] Respiratory: Reports cough and shortness of breath. [] Cardiovascular: Denies chest pain or edema. [] GI: Denies abdominal pain, nausea, vomiting, bloody stools or diarrhea. [] : Denies dysuria. [] Musculoskeletal: Reports low back pain, lower extremity pain Integument: Denies rash. [] Neurologic: Denies headache, focal weakness or sensory changes. [] Psychiatric: Denies depression or anxiety. [] Heart Score: C/O Chest Pain: N/A Risk Factors: Risk Factors: DM, Current or recent (<one month) smoker, HTN, HLP, family history of CAD, obesity. Risk Scores: Score 0 - 3: 2.5% MACE over next 6 weeks - Discharge Home Score 4 - 6: 20.3% MACE over next 6 weeks - Admit for Clinical Observation Score 7 - 10: 72.7% MACE over next 6 weeks - Early Invasive Strategies Current Medications: Current Medications Medications (Trade) Dose Ordered Sig/Glenis Start Time Stop Time Status Last Admin Dose Admin Diphenhydramine HCl (Benadryl) 25 mg 1X ONCE 07/28/21 13:45 07/28/21 13:47 DC 07/28/21 13:55 25 MG Fentanyl Citrate (Fentanyl 2ml Vial) 50 mcg 1X ONCE 07/28/21 13:45 07/28/21 13:47 DC 07/28/21 13:55 50 MCG Ondansetron HCl (Zofran) 4 mg 1X ONCE 07/28/21 13:45 07/28/21 13:47 DC 07/28/21 13:55 4 MG Piperacillin Sod/ Tazobactam Sod 3.375 gm/Sodium Chloride 50 ml @ 100 mls/hr 1X ONCE 07/28/21 15:00 07/28/21 15:36 DC Sodium Chloride 1,000 ml @ 1,000 mls/hr 1X ONCE 07/28/21 13:45 07/28/21 14:44 DC 07/28/21 13:50 1,000 MLS/HR Allergies: Allergies: Allergies Coded Allergies Type Severity Reaction Last Updated Verified morphine Allergy Intermediate swelling, hives 07/13/21 Yes Physical Exam: PE: Constitutional: Well developed, well nourished, no acute distress, non-toxic appearance. [] HENT: Normocephalic, atraumatic, bilateral external ears normal, oropharynx moist, no oral exudates, nose normal. [] Eyes: PERRLA, EOMI, conjunctiva normal, no discharge. [] Neck: Normal range of motion, no tenderness, supple, no stridor. [] Cardiovascular:Heart rate regular rhythm, no murmur [] Lungs & Thorax: Diminished breath sounds Abdomen: Bowel sounds normal, soft, no tenderness, no masses, no pulsatile masses. [] Skin: Warm, dry, no erythema, no rash. [] Back: No tenderness, no CVA tenderness. [] Extremities: No tenderness, no cyanosis, no clubbing, ROM intact, no edema. [] Neurologic: Alert and oriented X 3, normal motor function, normal sensory function, no focal deficits noted. [] Psychologic: Flat affect Current Patient Data: Labs: Laboratory Tests Test 07/28/21 13:36 07/28/21 13:58 07/28/21 15:15 White Blood Count 14.5 x10^3/uL (4.0-11.0) H Red Blood Count 3.14 x10^6/uL (4.30-5.70) L Hemoglobin 9.1 g/dL (13.0-17.5) L Hematocrit 25.9 % (39.0-53.0) L Mean Corpuscular Volume 81 fL (79-100) Mean Corpuscular Hemoglobin 29 pg (25-35) Mean Corpuscular Hemoglobin Concent 35 g/dL (31-37) Red Cell Distribution Width 26.4 % (11.5-14.5) H Platelet Count 554 x10^3/uL (140-400) H Neutrophils (%) (Auto) 68 % (31-73) Lymphocytes (%) (Auto) 20 % (24-48) L Monocytes (%) (Auto) 9 % (0-9) Eosinophils (%) (Auto) 2 % (0-3) Basophils (%) (Auto) 1 % (0-3) Neutrophils # (Auto) 9.9 x10^3/uL (1.8-7.7) H Lymphocytes # (Auto) 2.9 x10^3/uL (1.0-4.8) Monocytes # (Auto) 1.3 x10^3/uL (0.0-1.1) H Eosinophils # (Auto) 0.3 x10^3/uL (0.0-0.7) Basophils # (Auto) 0.1 x10^3/uL (0.0-0.2) Platelet Estimate Increased (ADEQUATE) Large Platelets Present Giant Platelets Present Polychromasia Present Poikilocytosis Marked Anisocytosis Marked Sickle Cells Present Target Cells Present Villaseñor-[place] Bodies Present Schistocytes Few Absolute Reticulocyte Count 0.243 x10^6/uL (0.020-0.120) Percent Reticulocyte Count 7.7 % (0.5-2.3) H Immature Reticulocyte Fraction 0.68 (0.20-0.60) H Sodium Level 138 mmol/L (136-145) Potassium Level 4.6 mmol/L (3.5-5.1) Chloride Level 100 mmol/L (98-107) Carbon Dioxide Level 25 mmol/L (21-32) Anion Gap 13 (6-14) Blood Urea Nitrogen 5 mg/dL (8-26) L Creatinine 0.4 mg/dL (0.7-1.3) L Estimated GFR (Cockcroft-Gault) > 300.0 BUN/Creatinine Ratio 13 (6-20) Glucose Level 91 mg/dL (70-99) Lactic Acid Level 0.4 mmol/L (0.4-2.0) Calcium Level 8.9 mg/dL (8.5-10.1) Total Bilirubin 1.8 mg/dL (0.2-1.0) H Aspartate Amino Transferase (AST) 54 U/L (15-37) H Alanine Aminotransferase (ALT) 60 U/L (16-63) Alkaline Phosphatase 152 U/L (46-116) H Total Protein 7.8 g/dL (6.4-8.2) Albumin 4.0 g/dL (3.4-5.0) Albumin/Globulin Ratio 1.1 (1.0-1.7) Procalcitonin < 0.10 ng/mL (0.00-0.10) Ethyl Alcohol Level < 10 mg/dL (0-10) Influenza Type A Antigen Negative (NEGATIVE) Influenza Type B Antigen Negative (NEGATIVE) SARS-CoV-2 Antigen (Rapid) Negative (NEGATIVE) Urine Collection Type Unknown Urine Color Yellow Urine Clarity Hazy Urine pH 5.5 (<5.0-8.0) Urine Specific [place] 1.010 (1.000-1.030) Urine Protein Negative mg/dL (NEG-TRACE) Urine Glucose (UA) Negative mg/dL (NEG) Urine Ketones (Stick) Negative mg/dL (NEG) Urine Blood Negative (NEG) Urine Nitrite Negative (NEG) Urine Bilirubin Negative (NEG) Urine Urobilinogen Dipstick 1.0 mg/dL (0.2 mg/dL) Urine Leukocyte Esterase Negative (NEG) Urine RBC 0 /HPF (0-2) Urine WBC Occ /HPF (0-4) Urine Bacteria 0 /HPF (0-FEW) Urine Mucus Mod /LPF Urine Opiates Screen Pos (NEG) Urine Methadone Screen Neg (NEG) Urine Barbiturates Neg (NEG) Urine Phencyclidine Screen Neg (NEG) Urine Amphetamine/Methamphetamine Neg (NEG) Urine Benzodiazepines Screen Neg (NEG) Urine Cocaine Screen Neg (NEG) Urine Cannabinoids Screen Neg (NEG) Urine Ethyl Alcohol Neg (NEG) Laboratory Tests 07/28/21 13:36 Laboratory Tests 07/28/21 13:36 Vital Signs: Vital Signs Date Time Temp Pulse Resp B/P (MAP) Pulse Ox O2 Delivery O2 Flow Rate FiO2 07/28/21 18:52 54 124/73 (90) 100 Nasal Cannula 2.0 07/28/21 11:48 98.1 19 98.1 EKG: EKG: [] Radiology/Procedures: Radiology/Procedures: []PROCEDURE: CHEST AP ONLY EXAM: XR CHEST 1V 07/28/2021 1:48 PM CLINICAL INDICATION: Hypoxia COMPARISON: Chest radiograph 04/19/2021 TECHNIQUE: AP upright view of the chest FINDINGS: The heart is normal size. There are new ill-defined bibasilar opacities. No pleural effusion or pneumothorax. No acute osseous abnormalities. IMPRESSION: New ill-defined bibasilar opacities suspicious for atypical pneumonia. Electronically signed by: Amirah Aleman MD (07/28/2021 2:04 PM) [id number] DICTATED and SIGNED BY: AMIRAH ALEMAN MD DATE: 07/28/21 [id number] 0 Course & Med Decision Making: Course & Med Decision Making Pertinent Labs and Imaging studies reviewed. 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 Vitals when he got to the ED temperature was 98.1, heart rate 81, respiration 18 on room air, blood pressure 119/58, O2 sats 95%. When he was put in the room his O2 sats went down to 88%. We had asked patient to take deep breaths to bring the O2 sats up. CBC with a WBC of 14.5 and a left shift, hemoglobin 9.1 with hematocrit of 25.9, CMP with bilirubin of 1.8, AST 54, ALT 60, ALK 152. UA negative for infection. Chest x-ray noted for new ill-defined bibasilar opacities suspicious for atypical pneumonia. Negative rapid Covid test, negative influenza A or B. Spoke with Dr. Petersen who accepted patient for admission and was started on Levaquin Dragon Disclaimer: Dragon Disclaimer: This electronic medical record was generated, in whole or in part, using a voice recognition dictation system. Departure Departure Impression: Primary Impression: Sickle cell pain crisis Additional Impressions: Pneumonia of both lower lobes Qualified Codes: J15.5 - Pneumonia due to Escherichia coli Chronic back pain Qualified Codes: M54.50 - Low back pain, unspecified; G89.29 - Other chronic pain Shortness of breath Chronic lower limb pain Qualified Codes: M79.604 - Pain in right leg; M79.605 - Pain in left leg; G89.29 - Other chronic pain Disposition: 09 ADMITTED INPATIENT Condition: STABLE Referrals: NON,STAFF (PCP) ROMY MEDEL APRN Jul 28, 2021 20:21
[2021-07-28 21:00] VITALS: BP 134/79
[2021-07-28] MEDS ORDERED: ENOXAPARIN 40 MG/0.4 ML SYRINGE. SQ SCH (21:00)
[2021-07-28] MEDS ORDERED: PSYLLIUM HUSK (SUGAR FREE) 1 PKT PACKET PO SCH (21:00)
[2021-07-28] MEDS: IV NORMAL SALINE 1000ML BAG 1,000 ML IV SCH (21:46)
[2021-07-28] MEDS: LACTOBACILLUS RHAMNOSUS GG 1 CAPSULE. PO SCH (21:46)
[2021-07-28 23:06] VITALS: BP 137/82
[2021-07-29 03:23] VITALS: BP 130/77
[2021-07-29] MEDS: fentaNYL PF VIAL 100 MCG/2 ML VIAL IVP PRN ×3 (05:17→16:13)
[2021-07-29] MEDS: IV NORMAL SALINE 1000ML BAG 1,000 ML IV SCH (05:29)
[2021-07-29 07:00] VITALS: BP 116/71
[2021-07-29 07:29] LABS: BASO # 0.1 x10^3/uL (0.0-0.2); BASO % 1 % (0-3); EOS # 0.2 x10^3/uL (0.0-0.7); EOS % 2 % (0-3); HEMATOCRIT 23.9 % (39.0-53.0); HEMOGLOBIN 8.7 g/dL (13.0-17.5); LYMPH # 3.3 x10^3/uL (1.0-4.8); LYMPH % 39 % (24-48); MEAN CORPUSCULAR HEMOGLOBIN 29 pg (25-35); MEAN CORPUSCULAR HGB CONC 36 g/dL (31-37); MEAN CORPUSCULAR VOLUME 81 fL (79-100); MONO # 1.2 x10^3/uL (0.0-1.1); MONO % 14 % (0-9); NEUT # 3.8 x10^3/uL (1.8-7.7); NEUT % 44 % (31-73); PLATELET COUNT 522 x10^3/uL (140-400); RED BLOOD COUNT 2.97 x10^6/uL (4.30-5.70); RED CELL DISTRIBUTION WIDTH 27.1 % (11.5-14.5); WHITE BLOOD COUNT 8.6 x10^3/uL (4.0-11.0)
[2021-07-29 07:54] LABS: ALBUMIN 3.3 g/dL (3.4-5.0); ALBUMIN/GLOBULIN RATIO 0.9 (1.0-1.7); CALCIUM 8.5 mg/dL (8.5-10.1); CREATININE 0.7 mg/dL (0.7-1.3); GFR 167.6; POTASSIUM 3.9 mmol/L (3.5-5.1); TOTAL BILIRUBIN 1.5 mg/dL (0.2-1.0)
[2021-07-29] MEDS ORDERED: FOLIC ACID 1 MG TABLET. PO SCH (09:00)
[2021-07-29 09:14] LABS: % BASOS 1 % (0-3); % EOS 3 % (0-5); % LYMPHS 41 % (24-48); % MONOS 9 % (0-10); % SEGS 46 % (35-66); PLT ESTIMATE INCREASED (ADEQUATE)
[2021-07-29 09:15] LABS: ANISOCYTOSIS PRESENT; MICROCYTOSIS PRESENT; POLYCHROMASIA PRESENT; SICKLE CELLS PRESENT; TARGET CELLS PRESENT
[2021-07-29] MEDS: LACTOBACILLUS RHAMNOSUS GG 1 CAPSULE. PO SCH (09:26)
[2021-07-29] MEDS: oxyCODONE IR 5 MG TABLET PO PRN ×2 (09:27→14:26)
[2021-07-29 11:00] VITALS: BP 109/57
--- NOTE | 2021-07-29 11:21 | NUR ---
SW following. Discussed with RN, pt from home with family, 2L (does not use at home - hasn't been wearing it here per RN), regular diet. Flu and COVID-[address] Coulter following. RN advised no SW needs at this time. SW will continue to follow.
--- NOTE | 2021-07-29 11:41 | PDOC ---
[employer] PROGRESS NOTE Date of Service DOS: DATE: 07/29/21 TIME: 11:37 Chief Complaint Chief Complaint Sickle cell disease with pain crisis SS anemia - takes Endari (L-glutamine) Leukocytosis Atypical pneumonia Elevated LFTs Marijuana use Ex-smoker. H/o AVN right hip Depression Constipation Intractable back pain History of COVID-19 in 01/2021 - recovered. has since been vaccinated x2 with pfizer. History of Present Illness History of Present Illness 07/29/2021 Patient seen and examined Chart reviewed Discussed with RN. Patient doing well, in NAD. Satting well on RA. Patient says his sickle cell disease is followed by [facility]. Currently c ontrolled with [facility]. Last pain crisis was several months ago. Vitals/I&O Vitals/I&O: Vital Signs Date Time Temp Pulse Resp B/P (MAP) Pulse Ox O2 Delivery O2 Flow Rate FiO2 07/29/21 11:00 98.2 64 18 109/57 (74) 90 Nasal Cannula 2.0 98.2 I & O 07/28/21 07/28/21 07/29/21 15:00 23:00 07:00 Intake Total 1000 ml 1850 ml Output Total 2050 ml Balance 1000 ml -200 ml Physical Exam General: Alert, Oriented X3, Cooperative, moderate distress Lungs: Clear Abdomen: Normal bowel sounds, Soft, No tenderness, No hepatosplenomegaly, No masses Extremities: No clubbing, No cyanosis, No edema, Normal pulses, No tenderness/swelling Skin: No rashes, No breakdown, No significant lesion Labs Labs: Laboratory Tests Test 07/28/21 13:36 07/28/21 13:58 07/28/21 15:15 07/29/21 06:55 White Blood Count 14.5 x10^3/uL (4.0-11.0) 8.6 x10^3/uL (4.0-11.0) Red Blood Count 3.14 x10^6/uL (4.30-5.70) 3.02 x10^6/uL (4.30-5.70) Hemoglobin 9.1 g/dL (13.0-17.5) 8.7 g/dL (13.0-17.5) Hematocrit 25.9 % (39.0-53.0) 23.9 % (39.0-53.0) Mean Corpuscular Volume 81 fL (79-100) 81 fL (79-100) Mean Corpuscular Hemoglobin 29 pg (25-35) 29 pg (25-35) Mean Corpuscular Hemoglobin Concent 35 g/dL (31-37) 36 g/dL (31-37) Red Cell Distribution Width 26.4 % (11.5-14.5) 27.1 % (11.5-14.5) Platelet Count 554 x10^3/uL (140-400) 522 x10^3/uL (140-400) Neutrophils (%) (Auto) 68 % (31-73) 44 % (31-73) Lymphocytes (%) (Auto) 20 % (24-48) 39 % (24-48) Monocytes (%) (Auto) 9 % (0-9) 14 % (0-9) Eosinophils (%) (Auto) 2 % (0-3) 2 % (0-3) Basophils (%) (Auto) 1 % (0-3) 1 % (0-3) Neutrophils # (Auto) 9.9 x10^3/uL (1.8-7.7) 3.8 x10^3/uL (1.8-7.7) Lymphocytes # (Auto) 2.9 x10^3/uL (1.0-4.8) 3.3 x10^3/uL (1.0-4.8) Monocytes # (Auto) 1.3 x10^3/uL (0.0-1.1) 1.2 x10^3/uL (0.0-1.1) Eosinophils # (Auto) 0.3 x10^3/uL (0.0-0.7) 0.2 x10^3/uL (0.0-0.7) Basophils # (Auto) 0.1 x10^3/uL (0.0-0.2) 0.1 x10^3/uL (0.0-0.2) Platelet Estimate Increased (ADEQUATE) Increased (ADEQUATE) Large Platelets Present Giant Platelets Present Polychromasia Present Present Poikilocytosis Marked Anisocytosis Marked Present Sickle Cells Present Present Target Cells Present Present Villaseñor-[place] Bodies Present Schistocytes Few Absolute Reticulocyte Count 0.243 x10^6/uL (0.020-0.120) 0.194 x10^6/uL (0.020-0.120) Percent Reticulocyte Count 7.7 % (0.5-2.3) 6.4 % (0.5-2.3) Immature Reticulocyte Fraction 0.68 (0.20-0.60) 0.66 (0.20-0.60) Sodium Level 138 mmol/L (136-145) 139 mmol/L (136-145) Potassium Level 4.6 mmol/L (3.5-5.1) 3.9 mmol/L (3.5-5.1) Chloride Level 100 mmol/L (98-107) 104 mmol/L (98-107) Carbon Dioxide Level 25 mmol/L (21-32) 26 mmol/L (21-32) Anion Gap 13 (6-14) 9 (6-14) Blood Urea Nitrogen 5 mg/dL (8-26) 5 mg/dL (8-26) Creatinine 0.4 mg/dL (0.7-1.3) 0.7 mg/dL (0.7-1.3) Estimated GFR (Cockcroft-Gault) > 300.0 167.6 BUN/Creatinine Ratio 13 (6-20) 7 (6-20) Glucose Level 91 mg/dL (70-99) 89 mg/dL (70-99) Lactic Acid Level 0.4 mmol/L (0.4-2.0) Calcium Level 8.9 mg/dL (8.5-10.1) 8.5 mg/dL (8.5-10.1) Total Bilirubin 1.8 mg/dL (0.2-1.0) 1.5 mg/dL (0.2-1.0) Aspartate Amino Transf (AST/SGOT) 54 U/L (15-37) 28 U/L (15-37) Alanine Aminotransferase (ALT/SGPT) 60 U/L (16-63) 45 U/L (16-63) Alkaline Phosphatase 152 U/L (46-116) 127 U/L (46-116) Total Protein 7.8 g/dL (6.4-8.2) 7.0 g/dL (6.4-8.2) Albumin 4.0 g/dL (3.4-5.0) 3.3 g/dL (3.4-5.0) Albumin/Globulin Ratio 1.1 (1.0-1.7) 0.9 (1.0-1.7) Procalcitonin < 0.10 ng/mL (0.00-0.10) Ethyl Alcohol Level < 10 mg/dL (0-10) Influenza Type A Antigen Negative (NEGATIVE) Influenza Type B Antigen Negative (NEGATIVE) SARS-CoV-2 RNA (BRET) Negative (Negative) SARS-CoV-2 Antigen (Rapid) Negative (NEGATIVE) Urine Collection Type Unknown Urine Color Yellow Urine Clarity Hazy Urine pH 5.5 (<5.0-8.0) Urine Specific [place] 1.010 (1.000-1.030) Urine Protein Negative mg/dL (NEG-TRACE) Urine Glucose (UA) Negative mg/dL (NEG) Urine Ketones (Stick) Negative mg/dL (NEG) Urine Blood Negative (NEG) Urine Nitrite Negative (NEG) Urine Bilirubin Negative (NEG) Urine Urobilinogen Dipstick 1.0 mg/dL (0.2 mg/dL) Urine Leukocyte Esterase Negative (NEG) Urine RBC 0 /HPF (0-2) Urine WBC Occ /HPF (0-4) Urine Bacteria 0 /HPF (0-FEW) Urine Mucus Mod /LPF Urine Opiates Screen Pos (NEG) Urine Methadone Screen Neg (NEG) Urine Barbiturates Neg (NEG) Urine Phencyclidine Screen Neg (NEG) Urine Amphetamine/Methamphetamine Neg (NEG) Urine Benzodiazepines Screen Neg (NEG) Urine Cocaine Screen Neg (NEG) Urine Cannabinoids Screen Neg (NEG) Urine Ethyl Alcohol Neg (NEG) Segmented Neutrophils % 46 % (35-66) Lymphocytes % 41 % (24-48) Monocytes % 9 % (0-10) Eosinophils % 3 % (0-5) Basophils % 1 % (0-3) Microcytosis Present Macrocytosis Present Assessment and Plan Assessmemt and Plan Problems Medical Problems: (1) Chronic back pain Status: Acute (2) Chronic lower limb pain Status: Acute (3) Pneumonia of both lower lobes Status: Acute (4) Shortness of breath Status: Acute (5) Sickle cell pain crisis Status: Acute Sickle cell disease with pain crisis SS anemia - takes Endari (L-glutamine) Leukocytosis Atypical pneumonia Elevated LFTs Marijuana use Ex-smoker. H/o AVN right hip Depression Constipation Intractable back pain History of COVID-19 in 01/2021 - recovered. has since been vaccinated x2 with [employer]. Plan: IV abx pain control supplemental O2 PRN beta agonist appreciate subspecialist input home meds probable discharge tomorrow Comment Review of Relevant I have reviewed the following items misty (where applicable) has been applied. Medications: Current Medications Medications (Trade) Dose Ordered Sig/Glenis Route PRN Reason Start Time Stop Time Status Last Admin Dose Admin Ondansetron HCl (Zofran) 4 mg 1X ONCE IVP 07/28/21 13:45 07/28/21 13:47 DC 07/28/21 13:55 Fentanyl Citrate (Fentanyl 2ml Vial) 50 mcg 1X ONCE IVP 07/28/21 13:45 07/28/21 13:47 DC 07/28/21 13:55 Sodium Chloride 1,000 ml @ 1,000 mls/hr 1X ONCE IV 07/28/21 13:45 07/28/21 14:44 DC 07/28/21 13:50 Diphenhydramine HCl (Benadryl) 25 mg 1X ONCE IVP 07/28/21 13:45 07/28/21 13:47 DC 07/28/21 13:55 Levofloxacin/ Dextrose 150 ml @ 100 mls/hr Q24H IV 07/28/21 16:00 07/28/21 17:43 Enoxaparin Sodium (Lovenox 40mg Syringe) 40 mg Q24H SQ 07/28/21 21:00 07/28/21 21:55 Lactobacillus Rhamnosus (Culturelle) 1 cap BID PO 07/28/21 21:00 07/29/21 09:26 Oxycodone HCl (Roxicodone) 10 mg PRN Q4HRS PRN PO MODERATE PAIN 07/28/21 15:45 07/29/21 09:27 Folic Acid (Folic Acid) 1 mg DAILY PO 07/29/21 09:00 07/29/21 09:26 Fentanyl Citrate (Fentanyl 2ml Vial) 75 mcg PRN Q2HRS PRN IVP SEVERE PAIN 7-10 07/28/21 15:45 07/29/21 11:00 Sodium Chloride 1,000 ml @ 125 mls/hr Q8H IV 07/28/21 15:45 07/30/21 07:44 07/29/21 05:29 Justifications for Admission Other Justification Concern for pulmonary embolism FELI YEUNG III DO Jul 29, 2021 11:41
[2021-07-29 15:00] VITALS: BP 120/72
[2021-07-29] MEDS ORDERED: OXYC5TAB4 PO (15:36)
[2021-07-29] MEDS ORDERED: OXYC10TA46 PO (15:43)
--- NOTE | 2021-07-29 16:35 | NUR ---
Discharge Note: RASHAUN CHURCH [address] Discharge instructions and discharge home medications reviewed with Patient and a copy given. All questions have been answered and understanding verbalized. The following instructions and handouts were given: follow up instructions, medication education Discontinued lines and drains: 20 guage right FA, tip intact, patient tolerated well. Patient discharged to home with self care via family.
--- NOTE | 2021-07-29 18:22 | DS ---
DATE OF DISCHARGE: 07/29/2021 ADMITTING DIAGNOSIS: Sickle cell crisis. DISCHARGE DIAGNOSIS: Resolving sickle cell crisis. HOSPITAL COURSE: The patient is a pleasant middle-aged male who presented with sickle cell crisis. We put him on vitamins, oxygen, fluids, p.r.n. pain meds and today when I saw and examined him, he is at his baseline, requesting discharge. We discharged home. DISPOSITION: Home. ACTIVITY: As tolerated. DIET: Low sodium. MEDICATIONS: Please see the MRAD. I renewed his Roxicodone 5 mg #30, take 1 p.o. q. 4 hours p.r.n. pain; Augmentin 875 b.i.d. for 1 more week; docusate 100 b.i.d.; doxycycline 1 cap b.i.d. for 1 more week; folic acid 1 mg a day; p.r.n. ntil-fao-eacqouk cough syrup; Culturelle; milk of mag; p.r.n. naproxen. TOTAL TIME: [address]: Donny TID: [id number]
== END 2021-07-29 16:47 | disposition home or self-care (01) | DRG 811 ==
LOC: ER 07:55 → 1 WEST ICU 15:38 → ED HOLD 16:57 → 5 NORTH 17:16
PROVIDERS: ADMIT Internal Medicine; ATTEND Internal Medicine
DX: D57.00 Hb-SS disease with crisis, unspecified (principal); J18.9 Pneumonia, unspecified organism; F12.90 Cannabis use, unspecified, uncomplicated; G89.29 Other chronic pain; K59.00 Constipation, unspecified; Z82.49 Family history of ischemic heart disease and other diseases of the circulatory system; Z86.16 Personal history of COVID-19; Z87.891 Personal history of nicotine dependence; F32.A Depression, unspecified; Z88.8 Allergy status to other drugs, medicaments and biological substances; Z20.822 Contact with and (suspected) exposure to COVID-19
CPT/HCPCS: 36415; 71045; 80053; 80307; 81001; 83605; 84145; 85007; 85025; 85045; 87040; 87426; 87804; 96361; 96374; 96375; G0480; J1200; J1650; J1956; J2405; J3010; J7030; U0003; U0005; 99285-25; G0378

== ENCOUNTER 2021-08-08 22:59 | Emergency (ER) | payer BC, MEDICARE ==
[~2021-08-08] VITALS: Ht 175.3 cm; Wt 88.0 kg
[2021-08-08] MEDS ORDERED: fentaNYL PF VIAL 100 MCG/2 ML VIAL IV ONE (23:30)
[2021-08-08] MEDS ORDERED: IV NORMAL SALINE 1000ML BAG 1,000 ML IV ONE (23:30)
[2021-08-09 00:04] LABS: BASO % 0 % (0-3); EOS # 0.4 x10^3/uL (0.0-0.7); EOS % 5 % (0-3); HEMATOCRIT 28.2 % (39.0-53.0); HEMOGLOBIN 9.6 g/dL (13.0-17.5); LYMPH # 3.1 x10^3/uL (1.0-4.8); LYMPH % 36 % (24-48); MEAN CORPUSCULAR HEMOGLOBIN 29 pg (25-35); MEAN CORPUSCULAR HGB CONC 34 g/dL (31-37); MEAN CORPUSCULAR VOLUME 84 fL (79-100); MONO # 1.1 x10^3/uL (0.0-1.1); MONO % 12 % (0-9); NEUT % 47 % (31-73); PLATELET COUNT 361 x10^3/uL (140-400); RED BLOOD COUNT 3.37 x10^6/uL (4.30-5.70); RED CELL DISTRIBUTION WIDTH 24.8 % (11.5-14.5); WHITE BLOOD COUNT 8.6 x10^3/uL (4.0-11.0)
[2021-08-09 00:20] LABS: CALCIUM 8.6 mg/dL (8.5-10.1); CREATININE 0.8 mg/dL (0.7-1.3); GFR 143.7; POTASSIUM 3.7 mmol/L (3.5-5.1)
[2021-08-09 00:26] LABS: ALBUMIN 3.7 g/dL (3.4-5.0); MAGNESIUM 2.1 mg/dL (1.8-2.4); TOTAL BILIRUBIN 1.2 mg/dL (0.2-1.0); TOTAL PROTEIN 7.3 g/dL (6.4-8.2)
[2021-08-09 01:05] LABS: BILIRUBIN,URINE NEGATIVE (NEG); CLARITY,URINE CLEAR; COLOR,URINE YELLOW; NITRITE,URINE NEGATIVE (NEG); PROTEIN,URINE NEGATIVE (NEG-TRACE); UROBILINOGEN,URINE 0.2 mg/dL (0.2 mg/dL)
[2021-08-09 01:11] LABS: BACTERIA,URINE 0 /HPF (0-FEW); RBC,URINE OCC /HPF (0-2); WBC,URINE 0 /HPF (0-4)
--- NOTE | 2021-08-09 01:22 | PHYS DOC ---
Past Medical History Past Medical History: Sickle Cell Disease, Other Additional Past Medical Histor: sickle cell anemia, COVID-19 Past Surgical History: Other Additional Past Surgical Histo: R KNEE SX Smoking Status: Never Smoker Alcohol Use: None Drug Use: None, Marijuana General Adult EDM: Chief Complaint: PAIN CONTROL HPI: HPI: Patient is a 26 year old male presenting to the ED for sickle cell crisis. Patients says that he was last in the hospital for sickle cell crisis that involved him being admitted to the hospital for several days with complications of chest pain and pneumonia. Patient says that since discharge he has been having continued pain that worsened two days ago. He said that he has pain in his b/l back around his kidneys and up by his scapula on both sides. He denies any CP,SOB. Patient says this is not new pain, and he has dealt with this a lot. Review of Systems: Review of Systems: Constitutional: Denies fever or chills Eyes: Denies redness or eye pain HENT: Denies nasal congestion or sore throat Respiratory: Denies cough or shortness of breath Cardiovascular: Denies chest pain or palpitations GI: Denies abdominal pain, nausea, or vomiting : Denies dysuria or hematuria Integument: Denies rash or skin lesions Neurologic: Denies headache, focal weakness or sensory changes Complete systems were reviewed and found to be within normal limits, except as documented in this note. Heart Score: C/O Chest Pain: N/A Current Medications: Current Medications Medications (Trade) Dose Ordered Sig/[facility] Start Time Stop Time Status Last Admin Dose Admin Fentanyl Citrate (Fentanyl 2ml Vial) 75 mcg 1X ONCE 08/09/21 01:30 08/09/21 01:31 Sodium Chloride 1,000 ml @ 1,000 mls/hr 1X ONCE 08/08/21 23:30 08/09/21 00:29 DC 08/08/21 23:30 1,000 MLS/HR Allergies: Allergies: Allergies Coded Allergies Type Severity Reaction Last Updated Verified morphine Allergy Intermediate swelling, hives 07/13/21 Yes Physical Exam: PE: Constitutional: Well developed, well nourished HENT: Normocephalic, atraumatic Eyes: Conjunctiva normal, no discharge Neck: Normal range of motion, no tenderness, supple Lungs & Thorax: No respiratory distress, equal chest rise and fall Abdomen: Soft, no tenderness Skin: Warm, dry, no erythema, no rash Back: No tenderness, no CVA tenderness Extremities: No tenderness, ROM intact, no edema Neurologic: Alert and oriented X 3, no focal deficits noted Psychologic: Affect normal, judgment normal Current Patient Data: Labs: Laboratory Tests Test 08/08/21 23:45 White Blood Count 8.6 x10^3/uL (4.0-11.0) Red Blood Count 3.34 x10^6/uL (4.30-5.70) L Hemoglobin 9.6 g/dL (13.0-17.5) L Hematocrit 28.2 % (39.0-53.0) L Mean Corpuscular Volume 84 fL (79-100) Mean Corpuscular Hemoglobin 29 pg (25-35) Mean Corpuscular Hemoglobin Concent 34 g/dL (31-37) Red Cell Distribution Width 24.8 % (11.5-14.5) H Platelet Count 361 x10^3/uL (140-400) Neutrophils (%) (Auto) 47 % (31-73) Lymphocytes (%) (Auto) 36 % (24-48) Monocytes (%) (Auto) 12 % (0-9) H Eosinophils (%) (Auto) 5 % (0-3) H Basophils (%) (Auto) 0 % (0-3) Neutrophils # (Auto) 4.0 x10^3/uL (1.8-7.7) Lymphocytes # (Auto) 3.1 x10^3/uL (1.0-4.8) Monocytes # (Auto) 1.1 x10^3/uL (0.0-1.1) Eosinophils # (Auto) 0.4 x10^3/uL (0.0-0.7) Basophils # (Auto) 0.0 x10^3/uL (0.0-0.2) Platelet Estimate Pending Absolute Reticulocyte Count 0.119 x10^6/uL (0.020-0.120) Percent Reticulocyte Count 3.6 % (0.5-2.3) H Immature Reticulocyte Fraction 0.70 (0.20-0.60) H Sodium Level 138 mmol/L (136-145) Potassium Level 3.7 mmol/L (3.5-5.1) Chloride Level 103 mmol/L (98-107) Carbon Dioxide Level 28 mmol/L (21-32) Anion Gap 7 (6-14) Blood Urea Nitrogen 6 mg/dL (8-26) L Creatinine 0.8 mg/dL (0.7-1.3) Estimated GFR (Cockcroft-Gault) 143.7 BUN/Creatinine Ratio 8 (6-20) Glucose Level 86 mg/dL (70-99) Calcium Level 8.6 mg/dL (8.5-10.1) Magnesium Level 2.1 mg/dL (1.8-2.4) Total Bilirubin 1.2 mg/dL (0.2-1.0) H Aspartate Amino Transferase (AST) 29 U/L (15-37) Alanine Aminotransferase (ALT) 25 U/L (16-63) Alkaline Phosphatase 117 U/L (46-116) H Total Protein 7.3 g/dL (6.4-8.2) Albumin 3.7 g/dL (3.4-5.0) Albumin/Globulin Ratio 1.0 (1.0-1.7) Laboratory Tests 08/08/21 23:45 Laboratory Tests 08/08/21 23:45 Vital Signs: Vital Signs Date Time Temp Pulse Resp B/P (MAP) Pulse Ox O2 Delivery O2 Flow Rate FiO2 08/08/21 23:44 20 99 Room Air 08/08/21 23:06 98.6 68 130/65 (86) 98.6 EKG: EKG: [] Radiology/Procedures: Radiology/Procedures: [] Course & Med Decision Making: Course & Med Decision Making Pertinent Labs and Imaging studies reviewed. (See chart for details) Patient is a 26 y/o M who presents to the ED for Acute Sickle Cell Crisis. Patient was recently discharged from the hospital due to another Sickle Cell Crisis and Pneumonia 2 weeks ago. Patients symptoms continued from last admission and continued to get worse from that time. Patient was given Fentanyl 75mcg, given IV Fluids, got CBC/CMP finding a slightly elevated reticulocyte count of 3.1 which is not as high historically for this patient. We also have ordered a urine sample to look for any abnormalities which has not came back yet. Patient will be discharged home with pain medications and continued to encourage fluids. Dragon Disclaimer: Dragon Disclaimer: This electronic medical record was generated, in whole or in part, using a voice recognition dictation system. Departure Departure Impression: Primary Impression: Sickle cell pain crisis Disposition: HOME / SELF CARE / HOMELESS Condition: STABLE Referrals: UNKNOWN PCP NAME (PCP) Patient Instructions: Sickle Cell Pain Crisis, [id number] RC CARABALLO DO Aug 09, 2021 01:21
[2021-08-09] MEDS ORDERED: fentaNYL PF VIAL 100 MCG/2 ML VIAL IV ONE (01:30)
[2021-08-09 01:43] VITALS: BP 121/72
[2021-08-09 02:06] LABS: PLT ESTIMATE ADEQUATE (ADEQUATE)
[2021-08-09 02:07] LABS: ANISOCYTOSIS MOD; POLYCHROMASIA MOD; SICKLE CELLS MOD; TARGET CELLS MOD
[2021-08-09 02:08] LABS: TEAR DROP CELLS FEW
== END 2021-08-09 01:50 | disposition home or self-care (01) ==
LOC: ER 22:59
DX: D57.00 Hb-SS disease with crisis, unspecified (principal); Z88.5 Allergy status to narcotic agent
CPT/HCPCS: 36415; 80053; 81001; 83735; 85025; 85045; 96361; 96374; 96376; 99285; J3010; J7030

== ENCOUNTER 2021-08-12 23:53 | Emergency (ER) | payer BC, MEDICARE ==
[~2021-08-12] VITALS: Ht 175.3 cm; Wt 90.9 kg
[2021-08-13 00:54] LABS: HEMATOCRIT 28.8 % (39.0-53.0); HEMOGLOBIN 10.1 g/dL (13.0-17.5); RED BLOOD COUNT 3.49 x10^6/uL (4.30-5.70); RED CELL DISTRIBUTION WIDTH 24.9 % (11.5-14.5); WHITE BLOOD COUNT 6.4 x10^3/uL (4.0-11.0)
[2021-08-13] MEDS ORDERED: IV NORMAL SALINE 1000ML BAG 1,000 ML IV ONE (01:00)
[2021-08-13] MEDS ORDERED: fentaNYL PF VIAL 100 MCG/2 ML VIAL IVP ONE ×3 (01:00→03:00)
[2021-08-13 01:02] LABS: CALCIUM 8.7 mg/dL (8.5-10.1); CREATININE 0.6 mg/dL (0.7-1.3); GFR 200.3; POTASSIUM 4.4 mmol/L (3.5-5.1)
[2021-08-13] MEDS ORDERED: OXYC15TA3 PO (03:53)
--- NOTE | 2021-08-13 03:55 | PHYS DOC ---
Past Medical History Past Medical History: Sickle Cell Disease, Other Additional Past Medical Histor: sickle cell anemia, COVID-19 Past Surgical History: Other Additional Past Surgical Histo: R KNEE SX Smoking Status: Never Smoker Alcohol Use: None Drug Use: None, Marijuana Adult General Chief Complaint Chief Complaint: PAIN CONTROL HPI HPI The patient is a 26-year-old male with a history of sickle cell disease who presents for evaluation of 2 to 3 days of sickle cell pain affecting his upper back and upper legs bilaterally, consistent with his typical sickle cell pain. Symptoms not controlled with home oxycodone, which he states he has run out of. No fevers, nausea or vomiting, shortness of breath or chest pain. No other symptoms of concern. Patient states symptoms feel exactly like his typical sickle cell pain crisis. He is in no acute distress and vital signs are appropriate here. Review of Systems Review of Systems A 12 point review of systems was completed and was negative except where noted in HPI above. Current Medications Current Medications Current Medications Medications (Trade) Dose Ordered Sig/Glenis Start Time Stop Time Status Last Admin Dose Admin Fentanyl Citrate (Fentanyl 2ml Vial) 100 mcg 1X ONCE 08/13/21 03:00 08/13/21 03:01 DC 08/13/21 02:26 100 MCG Sodium Chloride 1,000 ml @ 1,000 mls/hr 1X ONCE 08/13/21 01:00 08/13/21 01:59 DC 08/13/21 00:56 1,000 MLS/HR Allergies Allergies Allergies Coded Allergies Type Severity Reaction Last Updated Verified morphine Allergy Intermediate swelling, hives 07/13/21 Yes Physical Exam Physical Exam Young black male appearing nontoxic and in no acute distress. Head is normocephalic and atraumatic. Neck is supple and nontender. Oropharynx is moist. Lungs are clear to auscultation at all stations. There is a normal S1 and S2 without rubs or gallops and capillary refill is appropriate, less than 2 seconds globally. Abdomen is soft, nontender nondistended. Skin is warm and dry without cyanosis, clubbing or edema. Psychiatrically, the patient demonstrates appro priate mood and affect and is alert. Evaluation of the extremities reveals BUEs and BLEs neurovascularly intact distally with strength out of 5, sensation intact light touch in all nerve distributions, radial, DP and PT pulses 2+ bilaterally, capillary refill less than 2 seconds, hands and feet warm and well- perfused. No dependent peripheral edema distally. No calf tenderness or swelling bilaterally. Homans test is negative bilaterally. Current Patient Data Vital Signs Vital Signs Date Time Temp Pulse Resp B/P (MAP) Pulse Ox O2 Delivery O2 Flow Rate FiO2 08/13/21 02:56 16 100 Room Air 08/13/21 00:29 98.1 88 133/66 (88) 98.1 Lab Values Laboratory Tests Test 08/13/21 00:48 White Blood Count 6.4 x10^3/uL (4.0-11.0) Red Blood Count 3.56 x10^6/uL (4.30-5.70) L Hemoglobin 10.1 g/dL (13.0-17.5) L Hematocrit 28.8 % (39.0-53.0) L Mean Corpuscular Volume 82 fL (79-100) Mean Corpuscular Hemoglobin 29 pg (25-35) Mean Corpuscular Hemoglobin Concent 35 g/dL (31-37) Red Cell Distribution Width 24.9 % (11.5-14.5) H Platelet Count 255 x10^3/uL (140-400) Absolute Reticulocyte Count 0.090 x10^6/uL (0.020-0.120) Percent Reticulocyte Count 2.5 % (0.5-2.3) H Immature Reticulocyte Fraction 0.62 (0.20-0.60) H Sodium Level 137 mmol/L (136-145) Potassium Level 4.4 mmol/L (3.5-5.1) Chloride Level 100 mmol/L (98-107) Carbon Dioxide Level 26 mmol/L (21-32) Anion Gap 11 (6-14) Blood Urea Nitrogen 7 mg/dL (8-26) L Creatinine 0.6 mg/dL (0.7-1.3) L Estimated GFR (Cockcroft-Gault) 200.3 Glucose Level 96 mg/dL (70-99) Calcium Level 8.7 mg/dL (8.5-10.1) Lactate Dehydrogenase 679 U/L (85-227) H Laboratory Tests 08/13/21 00:48 Laboratory Tests 08/13/21 00:48 EKG EKG [] Radiology/Procedures Radiology/Procedures [] Course & Med Decision Making Course & Med Decision Making 26-year-old male here with sickle cell pain crisis. States fentanyl usually works well for him for discomfort when this happens. Labs generally without evidence of acute process. Patient feels that pain is controlled after 3 doses of IV fentanyl. 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 He understands that if he feels worse instead of better or develops other new symptoms of concern that he will need to return to the emergency department immediately for reevaluation. All questions are answered. Dragon Disclaimer Dragon Disclaimer This electronic medical record was generated, in whole or in part, using a voice recognition dictation system. Departure Departure Impression: Primary Impression: Sickle cell pain crisis Disposition: HOME / SELF CARE / HOMELESS Condition: IMPROVED Patient Instructions: Sickle Cell Pain Crisis Additional Instructions: Follow-up very closely with your sickle cell care team at [facility] for a reevaluation of your symptoms and to discussion of next best steps in care. I would like you to contact them by phone later today to make an appointment to be seen in the next 3 to 5 days. Drink plenty of fluids and get plenty of rest. I am providing a short course of your home pain medication to bridge you to your follow-up appointment. Return to the emergency department right away for worsen ing symptoms of any kind or with any other new symptoms of concern. ARI AREVALO MD Aug 13, 2021 03:55
[2021-08-13 04:03] VITALS: BP 113/64
== END 2021-08-13 04:06 | disposition home or self-care (01) ==
LOC: ER 23:53
DX: D57.00 Hb-SS disease with crisis, unspecified (principal); Z88.5 Allergy status to narcotic agent
CPT/HCPCS: 36415; 80048; 83615; 85027; 85045; 96361; 96374; 96376; 99285; J3010; J7030

== ENCOUNTER 2021-08-23 21:10 | Emergency (ER) | payer BC, MEDICARE ==
[~2021-08-23] VITALS: Ht 172.7 cm; Wt 92.0 kg
[~2021-08-23 21:10] MED LIST changes: +FENT1PAT21 TD
--- NOTE | 2021-08-24 00:30 | PHYS DOC ---
Past Medical History Past Medical History: Sickle Cell Disease, Other Additional Past Medical Histor: sickle cell anemia, COVID-19 Past Surgical History: Other Additional Past Surgical Histo: R KNEE SX Smoking Status: Current Some Day Smoker Alcohol Use: None Drug Use: None, Marijuana General Adult EDM: Chief Complaint: BACK PAIN - NO INJURY HPI: HPI: Patient is a 26 year old male here for exacerbation of chronic sickle cell pain x1 week. Patient's pain today is in the lower back and bilateral legs. He says he has been taking his medications but this has not helped and that the cold weather today has worsened his pain. He denies chest pain, shortness of breath, abdominal pain, or nausea or vomiting. Patient reports weather typically exacerbates his pain. Patient was recently admitted through emergency department here at [facility] on 08/15/2021 until 08/16/2021. Patient reports his family physician and sickle cell clinic are currently working on changing his pain medication to fentanyl patches. Patient reports he is currently working double shifts to provide for his family. Reports pain is consistent with his sickle cell pain crisis. Review of Systems: Review of Systems: Constitutional: Denies fever or chills Eyes: Denies redness or eye pain HENT: Denies nasal congestion or sore throat Respiratory: Denies cough or shortness of breath Cardiovascular: Denies chest pain or palpitations GI: Denies abdominal pain, nausea, or vomiting : Denies dysuria or hematuria Musculoskeletal: Reports back pain and pain in bilateral extremities. Integument: Denies rash or skin lesions Neurologic: Denies headache, focal weakness or sensory changes Complete systems were reviewed and found to be within normal limits, except as documented in this note. Heart Score: C/O Chest Pain: N/A Current Medications: Current Medications Medications (Trade) Dose Ordered Sig/[facility] Start Time Stop Time Status Last Admin Dose Admin Fentanyl Citrate (Fentanyl 2ml Vial) 75 mcg 1X ONCE 08/24/21 00:30 08/24/21 00:31 Sodium Chloride 1,000 ml @ 1,000 mls/hr 1X ONCE 08/24/21 00:30 08/24/21 01:29 Allergies: Allergies: Allergies Coded Allergies Type Severity Reaction Last Updated Verified morphine Allergy Severe swelling, hives 08/15/21 Yes Physical Exam: PE: Constitutional: Mild distress secondary to pain, non-toxic appearance HENT: Normocephalic, atraumatic Eyes: PERRL, EOMI, Scleral icterus, no discharge Neck: Normal range of motion, no tenderness, supple Lungs & Thorax: No respiratory distress, equal chest rise and fall Abdomen: Soft, no tenderness Skin: Warm, dry, no erythema, no rash Back: No CVA tenderness, no midline spinal tenderness Extremities: ROM intact, no edema Neurologic: Alert and oriented X 3, normal motor function, normal sensory function, no focal deficits noted Psychologic: Affect normal, judgment normal EKG: EKG: [] Radiology/Procedures: Radiology/Procedures: [] Course & Med Decision Making: Course & Med Decision Making Pertinent Lab studies reviewed. (See chart for details) Patient presents with HPI and physical exam consistent for sickle cell pain crisis. Patient has been seen multiple times for same. Patient was also recently admitted to hospital on 08/15/2021. Pain crisis is typically ex acerbated by changes in weather. IV fluid hydration provided. Patient drinking H2O in department. Pain addressed. Labs obtained and posted to chart. Reticulocyte count elevated. CMP stable. Patient stable for discharge with outpatient follow-up with PCP/sickle cell clinic. Discussed findings and plan with patient, who acknowledges understanding and agreement. Candelario Disclaimer: Candelario Disclaimer: This electronic medical record was generated, in whole or in part, using a voice recognition dictation system. Departure Departure Impression: Primary Impression: Sickle cell pain crisis Disposition: 01 HOME / SELF CARE / HOMELESS Condition: STABLE Referrals: UNKNOWN PCP NAME (PCP) Patient Instructions: Sickle Cell Pain Crisis, Pkys-ok-Frol Scripts Oxycodone HCl (Oxycodone HCl ER) 10 Mg Tab.er.12h 10 MG PO BID, #14 TAB.SR Prov: RC CARABALLO DO 08/24/21 RC CARABALLO DO Aug 24, 2021 00:30
[2021-08-24] MEDS: IV NORMAL SALINE 1000ML BAG 1,000 ML IV ONE (00:38)
[2021-08-24] MEDS: fentaNYL PF VIAL 100 MCG/2 ML VIAL IV ONE ×3 (00:43→02:46)
[2021-08-24 00:50] LABS: BASO # 0.2 x10^3/uL (0.0-0.2); BASO % 2 % (0-3); EOS # 0.6 x10^3/uL (0.0-0.7); EOS % 6 % (0-3); HEMATOCRIT 23.6 % (39.0-53.0); HEMOGLOBIN 8.3 g/dL (13.0-17.5); LYMPH % 31 % (24-48); MEAN CORPUSCULAR HEMOGLOBIN 28 pg (25-35); MEAN CORPUSCULAR HGB CONC 35 g/dL (31-37); MEAN CORPUSCULAR VOLUME 79 fL (79-100); MONO # 1.4 x10^3/uL (0.0-1.1); MONO % 15 % (0-9); NEUT # 4.4 x10^3/uL (1.8-7.7); NEUT % 46 % (31-73); PLATELET COUNT 390 x10^3/uL (140-400); RED BLOOD COUNT 2.98 x10^6/uL (4.30-5.70); RED CELL DISTRIBUTION WIDTH 26.8 % (11.5-14.5); WHITE BLOOD COUNT 9.4 x10^3/uL (4.0-11.0)
[2021-08-24 01:05] LABS: CALCIUM 8.7 mg/dL (8.5-10.1); CREATININE 0.6 mg/dL (0.7-1.3); GFR 200.3
[2021-08-24 01:12] LABS: ALBUMIN 3.5 g/dL (3.4-5.0); ALBUMIN/GLOBULIN RATIO 0.8 (1.0-1.7); MAGNESIUM 2.4 mg/dL (1.8-2.4); TOTAL BILIRUBIN 1.5 mg/dL (0.2-1.0); TOTAL PROTEIN 7.8 g/dL (6.4-8.2)
[2021-08-24] MEDS ORDERED: OXYC10TA PO (02:29)
[2021-08-24 02:53] VITALS: BP 112/61
[2021-08-24 02:57] LABS: PLT ESTIMATE INCREASED (ADEQUATE); POLYCHROMASIA MOD
[2021-08-24 02:58] LABS: ANISOCYTOSIS MARKED; SICKLE CELLS MANY; TARGET CELLS FEW
[2021-08-24 02:59] LABS: SCHISTOCYTES OCC
== END 2021-08-24 03:25 | disposition home or self-care (01) ==
LOC: ER 21:10
DX: D57.00 Hb-SS disease with crisis, unspecified (principal); F17.200 Nicotine dependence, unspecified, uncomplicated; Z88.5 Allergy status to narcotic agent
CPT/HCPCS: 36415; 80053; 83690; 83735; 85025; 85045; 96361; 96374; 96376; 99285; J3010; J7030

== ENCOUNTER 2021-08-26 03:11 | Emergency (ER) | payer BC, MEDICARE ==
[~2021-08-26] VITALS: Ht 175.3 cm; Wt 84.5 kg
[2021-08-26] MEDS ORDERED: fentaNYL PF VIAL 100 MCG/2 ML VIAL IM ONE (08:45)
[2021-08-26] MEDS ORDERED: KETOROLAC 60 MG/2 ML VIAL. IM ONE (08:45)
--- NOTE | 2021-08-26 08:49 | PHYS DOC ---
Past Medical History Past Medical History: Sickle Cell Disease, Other Additional Past Medical Histor: sickle cell anemia, COVID-19 Past Surgical History: Other Additional Past Surgical Histo: R KNEE SX Smoking Status: Never Smoker Alcohol Use: Occasionally Drug Use: None, Marijuana General Adult EDM: Chief Complaint: SICKE CELL PAIN HPI: HPI: Patient is a 26 year old male with history of sickle cell disease, frequent visits here for pain control, well-known to this physician in this department. He was seen here 3 days ago for pain. Patient was given pain medication in ER, patient was given a prescription for oxycodone, 10 pills to take at home. Patient came in today for pain again. Patient denies any injury. Patient denies any cough or fever. Patient denies abdominal pain, no nausea vomiting, no diarrhea. Patient is under the treatment of the sickle cell doctor at [facility] Review of Systems: Review of Systems: Constitutional: Denies fever or chills. [] Eyes: Denies change in visual acuity. [] HENT: Denies nasal congestion or sore throat. [] Respiratory: Denies cough or shortness of breath. [] Cardiovascular: Denies chest pain or edema. [] GI: Denies abdominal pain, nausea, vomiting, bloody stools or diarrhea. [] : Denies dysuria. [] Musculoskeletal: POSITIVE FOR BACK PAIN, JOINT PAIN. Integument: Denies rash. [] Neurologic: Denies headache, focal weakness or sensory changes. [] Endocrine: Denies polyuria or polydipsia. [] Lymphatic: Denies swollen glands. [] Psychiatric: Denies depression or anxiety. [] Heart Score: C/O Chest Pain: N/A Risk Factors: Risk Factors: DM, Current or recent (<one month) smoker, HTN, HLP, family his tory of CAD, obesity. Risk Scores: Score 0 - 3: 2.5% MACE over next 6 weeks - Discharge Home Score 4 - 6: 20.3% MACE over next 6 weeks - Admit for Clinical Observation Score 7 - 10: 72.7% MACE over next 6 weeks - Early Invasive Strategies Current Medications: Current Medications Medications (Trade) Dose Ordered Sig/[facility] Start Time Stop Time Status Last Admin Dose Admin Fentanyl Citrate (Fentanyl 2ml Vial) 100 mcg 1X ONCE 08/26/21 08:45 08/26/21 08:46 DC Ketorolac Tromethamine (Toradol Im) 60 mg 1X ONCE 08/26/21 08:45 08/26/21 08:46 UNV Allergies: Allergies: Allergies Coded Allergies Type Severity Reaction Last Updated Verified morphine Allergy Severe swelling, hives 08/26/21 Yes Physical Exam: PE: Constitutional: Well developed, well nourished, no acute distress, non-toxic appearance. [] HENT: Normocephalic, atraumatic, bilateral external ears normal, oropharynx moist, no oral exudates, nose normal. [] Eyes: PERRLA, EOMI, conjunctiva normal, no discharge. [] Neck: Normal range of motion, no tenderness, supple, no stridor. [] Cardiovascular:Heart rate regular rhythm, no murmur [] Lungs & Thorax: Bilateral breath sounds clear to auscultation [] Abdomen: Bowel sounds normal, soft, no tenderness, no masses, no pulsatile masses. [] Skin: Warm, dry, no erythema, no rash. [] Back: No tenderness, no CVA tenderness. [] Extremities: No tenderness, no cyanosis, no clubbing, ROM intact, no edema. [] Neurologic: Alert and oriented X 3, normal motor function, normal sensory function, no focal deficits noted. [] Psychologic: Affect normal, judgement normal, mood normal. [] Current Patient Data: Labs: Current Medications Medications (Trade) Dose Ordered Sig/[facility] Route PRN Reason Start Time Stop Time Status Last Admin Dose Admin Fentanyl Citrate (Fentanyl 2ml Vial) 100 mcg 1X ONCE IM 08/26/21 08:45 08/26/21 08:46 DC 08/26/21 08:48 Ketorolac Tromethamine (Toradol Im) 60 mg 1X ONCE IM 08/26/21 08:45 08/26/21 08:49 DC Vital Signs: Vital Signs Date Time Temp Pulse Resp B/P (MAP) Pulse Ox O2 Delivery O2 Flow Rate FiO2 08/26/21 07:51 97.9 73 18 119/65 (83) 98 Room Air 97.9 EKG: EKG: [] Radiology/Procedures: Radiology/Procedures: [] Course & Med Decision Making: Course & Med Decision Making Pertinent Labs and Imaging studies reviewed. (See chart for details) [] Dragon Disclaimer: Dragon Disclaimer: This electronic medical record was generated, in whole or in part, using a voice recognition dictation system. Departure Departure Impression: Primary Impression: Sickle cell pain crisis Disposition: 01 HOME / SELF CARE / HOMELESS Condition: STABLE Referrals: UNKNOWN PCP NAME (PCP) Follow up with your sickle cell pain doctor at [facility] THIS WEEK. Patient Instructions: Sickle Cell Pain Crisis, Sdiw-po-Fbys BRYAN HOFFMAN DO Aug 26, 2021 08:49
[2021-08-26 09:41] VITALS: BP 125/62
== END 2021-08-26 09:50 | disposition home or self-care (01) ==
LOC: ER 03:11
DX: D57.1 Sickle-cell disease without crisis (principal); Z88.5 Allergy status to narcotic agent
CPT/HCPCS: 96372; 99285; J1885; J3010

== ENCOUNTER 2021-08-30 12:11 | Emergency (ER) | payer BC, MEDICARE ==
[~2021-08-30] VITALS: Ht 175.3 cm; Wt 87.4 kg
[2021-08-30] MEDS ORDERED: IV NORMAL SALINE 1000ML BAG 1,000 ML IV ONE (15:30)
[2021-08-30] MEDS ORDERED: fentaNYL PF VIAL 100 MCG/2 ML VIAL IVP ONE ×2 (15:30→17:00)
--- NOTE | 2021-08-30 15:35 | PHYS DOC ---
Past Medical History Past Medical History: Sickle Cell Disease, Other Additional Past Medical Histor: sickle cell anemia, COVID-19 Past Surgical History: Other Additional Past Surgical Histo: R KNEE SX Smoking Status: Never Smoker Alcohol Use: Occasionally Drug Use: None, Marijuana General Adult EDM: Chief Complaint: PAIN CONTROL HPI: HPI: Patient is a 26 year old male who presents with here with sickle cell pain frequently. Patient states with the weather changing he is having his same sickle cell pain with his lower back and in his legs bilaterally. He denies chest pain, shortness of air, fever, cough, abdominal pain, nausea, vomiting, diarrhea, numbness or tingling, focal weakness, vision change, headache, dizziness. He does have a appointment coming up with his sickle cell doctor on 04 September. Rates pain at this time a 9 out of 10. Review of Systems: Review of Systems: Constitutional: Denies fever or chills. [] Eyes: Denies change in visual acuity. [] HENT: Denies nasal congestion or sore throat. [] Respiratory: Denies cough or shortness of breath. [] Cardiovascular: Denies chest pain or edema. [] GI: Denies abdominal pain, nausea, vomiting, bloody stools or diarrhea. [] : Denies dysuria. [] Musculoskeletal: + back pain or joint pain. + Bilateral leg pain [] Integument: Denies rash. [] Neurologic: Denies headache, focal weakness or sensory changes. [] Endocrine: Denies polyuria or polydipsia. [] Lymphatic: Denies swollen glands. [] Psychiatric: Denies depression or anxiety. [] Heart Score: C/O Chest Pain: No Current Medications: Current Medications Medications (Trade) Dose Ordered Sig/[facility] Start Time Stop Time Status Last Admin Dose Admin Fentanyl Citrate (Fentanyl 2ml Vial) 75 mcg 1X ONCE 08/30/21 15:30 08/30/21 15:31 DC Sodium Chloride 1,000 ml @ 1,000 mls/hr 1X ONCE 08/30/21 15:30 08/30/21 16:29 Allergies: Allergies: Allergies Coded Allergies Type Severity Reaction Last Updated Verified morphine Allergy Severe swelling, hives 08/30/21 Yes Physical Exam: PE: Constitutional: Well developed, well nourished, no acute distress, non-toxic appearance. [] HENT: Normocephalic, atraumatic, bilateral external ears normal, oropharynx moist, no oral exudates, nose normal. [] Eyes: PERRLA, EOMI, conjunctiva normal, no discharge. [] Neck: Normal range of motion, no tenderness, supple, no stridor. [] Cardiovascular:Heart rate regular rhythm, no murmur [] Lungs & Thorax: Bilateral breath sounds clear to auscultation [] Abdomen: Bowel sounds normal, soft, no tenderness, no masses, no pulsatile masses. [] Skin: Warm, dry, no erythema, no rash. [] Back: No tenderness, no CVA tenderness. [] Extremities: No tenderness, no cyanosis, no clubbing, ROM intact, no edema. [] Neurologic: Alert and oriented X 3, normal motor function, normal sensory function, no focal deficits noted. [] Psychologic: Affect normal, judgement normal, mood normal. [] Normal physical exam Current Patient Data: Vital Signs: Vital Signs Date Time Temp Pulse Resp B/P (MAP) Pulse Ox O2 Delivery O2 Flow Rate FiO2 08/30/21 15:18 98.4 75 16 115/58 (77) 96 Room Air 98.4 EKG: EKG: [] Radiology/Procedures: Radiology/Procedures: [] Course & Med Decision Making: Course & Med Decision Making Pertinent Labs and Imaging studies reviewed. (See chart for details) See HPI. Alert and oriented x4. Ambulatory steady gait. Speaks in full clear sentences. Lungs are clear all station all lobes. Vital signs are within normal limits. He was given a liter of fluids and fentanyl. Skin pink warm and dry. No peripheral edema. Patient has not any sickle cell crisis. Patient received a liter of normal saline and 2 doses of fentanyl. Patient states he is feeling better and is ready to go home. Patient is stable and in no distress. [] Dragon Disclaimer: Dragon Disclaimer: This electronic medical record was generated, in whole or in part, using a voice recognition dictation system. Departure Departure Impression: Primary Impression: Sickle cell anemia with pain Disposition: 01 HOME / SELF CARE / HOMELESS Condition: STABLE Referrals: NON,STAFF (PCP) Patient Instructions: Sickle Cell Pain Crisis Additional Instructions: Drink plenty of fluids. Follow-up with your doctor as scheduled. If you get having chest pain or shortness of air return emergency room. GERALD NGO APRN Aug 30, 2021 15:35
[2021-08-30 15:51] LABS: BASO # 0.1 x10^3/uL (0.0-0.2); BASO % 1 % (0-3); EOS # 0.1 x10^3/uL (0.0-0.7); EOS % 2 % (0-3); HEMATOCRIT 25.1 % (39.0-53.0); LYMPH # 1.8 x10^3/uL (1.0-4.8); LYMPH % 33 % (24-48); MEAN CORPUSCULAR HEMOGLOBIN 29 pg (25-35); MEAN CORPUSCULAR HGB CONC 36 g/dL (31-37); MEAN CORPUSCULAR VOLUME 80 fL (79-100); MONO # 1.1 x10^3/uL (0.0-1.1); MONO % 19 % (0-9); NEUT # 2.6 x10^3/uL (1.8-7.7); NEUT % 46 % (31-73); PLATELET COUNT 577 x10^3/uL (140-400); RED BLOOD COUNT 3.13 x10^6/uL (4.30-5.70); RED CELL DISTRIBUTION WIDTH 27.4 % (11.5-14.5); WHITE BLOOD COUNT 5.6 x10^3/uL (4.0-11.0)
[2021-08-30 16:06] LABS: CALCIUM 8.7 mg/dL (8.5-10.1); CREATININE 0.5 mg/dL (0.7-1.3); GFR 247.2; POTASSIUM 4.5 mmol/L (3.5-5.1)
[2021-08-30 16:13] LABS: ALBUMIN 3.4 g/dL (3.4-5.0); ALBUMIN/GLOBULIN RATIO 0.9 (1.0-1.7); TOTAL BILIRUBIN 1.2 mg/dL (0.2-1.0); TOTAL PROTEIN 7.4 g/dL (6.4-8.2)
[2021-08-30 16:44] LABS: % LYMPHS 36 % (24-48); % MONOS 20 % (0-10); % SEGS 44 % (35-66); NUCLEATED RBC 4; PLT ESTIMATE INCREASED (ADEQUATE)
[2021-08-30 16:45] LABS: HOWELL-JOLLY BODIES PRESENT; OVALOCYTES PRESENT; POIKILOCYTOSIS MARKED; POLYCHROMASIA PRESENT; SICKLE CELLS PRESENT; TARGET CELLS PRESENT
[2021-08-30 16:46] LABS: ANISOCYTOSIS MARKED
[2021-08-30 17:26] VITALS: BP 113/65
== END 2021-08-30 17:26 | disposition home or self-care (01) ==
LOC: ER 12:11
DX: D57.00 Hb-SS disease with crisis, unspecified (principal)
CPT/HCPCS: 36415; 80053; 85007; 85025; 85045; 96361; 96374; 96376; 99284; J3010; J7030

== ENCOUNTER 2021-09-01 02:39 | Emergency (ER) | payer BC, MEDICARE ==
[~2021-09-01] VITALS: Ht 175.3 cm; Wt 86.2 kg
[2021-09-01] MEDS ORDERED: IV NORMAL SALINE 1000ML BAG 1,000 ML IV ONE (03:15)
[2021-09-01] MEDS ORDERED: diphenhydrAMINE 50 MG/ML VIAL IVP ONE (03:15)
[2021-09-01] MEDS ORDERED: KETOROLAC 60 MG/2 ML VIAL. IM ONE (03:15)
[2021-09-01] MEDS ORDERED: fentaNYL PF VIAL 100 MCG/2 ML VIAL IVP ONE ×2 (03:15→04:45)
[2021-09-01 03:30] LABS: INFLUENZA A PATIENT NEGATIVE (NEGATIVE); INFLUENZA B PATIENT NEGATIVE (NEGATIVE)
[2021-09-01] MEDS ORDERED: KETOROLAC 30 MG/ML VIAL. IVP ONE (04:00)
[2021-09-01] MEDS ORDERED: OXYC15TA61 PO (05:00)
--- NOTE | 2021-09-01 05:01 | RAD ---
XR CHEST 1V History: Reason: pna, cough / Spl. Instructions: / History: Comparison: July 28, 2021 Findings: Mild multifocal ill-defined opacities bilaterally. No pleural effusion. No pneumothorax. Unchanged he art size. Impression: 1. Mild multifocal ill-defined opacities bilaterally, can be seen with viral pneumonia. Overall renny lar findings compared to prior radiograph. Electronically signed by: Nahum Sheriff DO (09/01/2021 4:58 AM) [facility]
--- NOTE | 2021-09-01 05:04 | ED.ADGEN ---
Past Medical History Past Medical History: Sickle Cell Disease, Other Additional Past Medical Histor: sickle cell anemia, COVID-19 Past Surgical History: Other Additional Past Surgical Histo: R KNEE SX Smoking Status: Never Smoker Alcohol Use: Occasionally Drug Use: None, Marijuana General Adult EDM: Chief Complaint: PAIN CONTROL HPI: HPI: Patient is a 26 year old 26-year-old male well-known to the emergency department for sickle cell crises. Patient states he has been having worsening pain in his back and legs which is difficult for his sickle cell pain. Patient has a chronic pain management physician but his medicines has not been working. Patient was seen here couple of days ago for the same. Patient is concerned because he has had a cough and thinks his significant other might have been exposed to COVID. Had COVID-pneumonia last year but has since been fully vaccinated. Review of Systems: Review of Systems: All other systems within normal limits except for as noted in the HPI Current Medications: Current Medications Medications (Trade) Dose Ordered Sig/[facility] Start Time Stop Time Status Last Admin Dose Admin Diphenhydramine HCl (Benadryl) 25 mg 1X ONCE 09/01/21 03:15 09/01/21 03:16 DC 09/01/21 03:43 25 MG Fentanyl Citrate (Fentanyl 2ml Vial) 75 mcg 1X ONCE 09/01/21 04:45 09/01/21 04:46 DC Ketorolac Tromethamine (Toradol 30mg Vial) 15 mg 1X ONCE 09/01/21 04:00 09/01/21 04:01 DC 09/01/21 03:58 15 MG Ketorolac Tromethamine (Toradol Im) 60 mg 1X ONCE 09/01/21 03:15 09/01/21 03:53 DC Sodium Chloride 1,000 ml @ 1,000 mls/hr 1X ONCE 09/01/21 03:15 09/01/21 04:14 DC 09/01/21 03:42 1,000 MLS/HR Allergies: Allergies: Allergies Coded Allergies Type Severity Reaction Last Updated Verified morphine Allergy Severe swelling, hives 08/30/21 Yes Physical Exam: PE: Constitutional: Well developed, well nourished, no acute distress, non-toxic appearance. [] HENT: Normocephalic, atraumatic, bilateral external ears normal, nose normal. [] Eyes: PERRLA, conjunctiva normal, no discharge. [] Neck: No rigidity, supple, no stridor. [] Cardiovascular: Regular rate and rhythm, brisk cap refill [] Lungs & Thorax: Non labored symmetric respirations, no tachypnea or respiratory distress. Lungs clear to auscultation [] Abdomen: Soft, nondistended. Skin: Warm, dry, no erythema, no rash. [] Back: Unremarkable Extremities: No deformities, range of motion grossly intact, no lower extremity edema [] Neurologic: Alert and oriented X 3, no focal deficits noted. [] Psychologic: Affect normal, judgement normal, mood normal. [] Current Patient Data: Labs: Laboratory Tests Test 09/01/21 02:55 Influenza Type A Antigen Negative (NEGATIVE) Influenza Type B Antigen Negative (NEGATIVE) SARS-CoV-2 Antigen (Rapid) Negative (NEGATIVE) Vital Signs: Vital Signs Date Time Temp Pulse Resp B/P (MAP) Pulse Ox O2 Delivery O2 Flow Rate FiO2 09/01/21 03:46 18 09/01/21 02:45 98.6 62 125/92 (103) 99 Room Air 98.6 EKG: EKG: [] Heart Score: C/O Chest Pain: No Risk Factors: Risk Factors: DM, Current or recent (<one month) smoker, HTN, HLP, family history of CAD, obesity. Risk Scores: Score 0 - 3: 2.5% MACE over next 6 weeks - Discharge Home Score 4 - 6: 20.3% MACE over next 6 weeks - Admit for Clinical Observation Score 7 - 10: 72.7% MACE over next 6 weeks - Early Invasive Strategies Radiology/Procedures: Radiology/Procedures: [] Course & Med Decision Making: Course & Med Decision Making Pertinent Labs and Imaging studies reviewed. (See chart for details) [] Dragon Disclaimer: Dragon Disclaimer: This electronic medical record was generated, in whole or in part, using a voice recognition dictation system. Departure Departure Impression: Primary Impression: Sickle cell pain crisis Disposition: HOME / SELF CARE / HOMELESS Condition: STABLE Referrals: UNKNOWN PCP NAME (PCP) Patient Instructions: Cough, Adult Scripts Oxycodone HCl (Oxycontin) 15 Mg Tab.er.12h 1 TAB PO BID for pain MDD 2 Tablet(s) for 5 Days, #10 TAB 0 Refills Prov: LEE ANN PINA MD 09/01/21 LEE ANN PINA MD Sep 01, 2021 05:04
[2021-09-01 05:56] VITALS: BP 126/76
--- NOTE | 2021-09-03 10:26 | NUR ---
IP: Informed pt of negative covid test. Pt verbalized understanding.
== END 2021-09-01 05:57 | disposition home or self-care (01) ==
LOC: ER 02:39
DX: D57.00 Hb-SS disease with crisis, unspecified (principal); Z20.822 Contact with and (suspected) exposure to COVID-19; Z88.5 Allergy status to narcotic agent
CPT/HCPCS: 71045; 87426; 87804; 96361; 96374; 96375; 96376; 99284; J1200; J1885; J3010; J7030; U0003; U0005

== ENCOUNTER 2021-09-08 17:55 | Emergency (ER) | payer BC, MEDICARE ==
[~2021-09-08] VITALS: Ht 175.3 cm; Wt 88.0 kg
[~2021-09-08 17:55] MED LIST changes: +OXYC15TA61 PO
[2021-09-08 18:44] VITALS: BP 131/75
== END 2021-09-08 22:42 | disposition left against medical advice (07) ==
LOC: ER 17:55
DX: D57.00 Hb-SS disease with crisis, unspecified (principal); Z53.21 Procedure and treatment not carried out due to patient leaving prior to being seen by health care provider

== ENCOUNTER 2021-09-28 01:22 | Inpatient (IN) | payer BC, MEDICARE ==
[~2021-09-28] VITALS: Ht 175.3 cm; Wt 79.3 kg
[2021-09-28] MEDS ORDERED: IV NORMAL SALINE 1000ML BAG 1,000 ML IV ONE (02:00)
[2021-09-28] MEDS: fentaNYL PF VIAL 100 MCG/2 ML VIAL IVP PRN ×7 (02:09→20:36)
--- NOTE | 2021-09-28 02:17 | ED.ADGEN ---
Past Medical History Past Medical History: Sickle Cell Disease, Other Additional Past Medical Histor: SICKLE CELL Past Surgical History: No Surgical History Additional Past Surgical Histo: R KNEE SX Smoking Status: Never Smoker Alcohol Use: None Drug Use: None, Marijuana General Adult EDM: Chief Complaint: SHORTNESS OF BREATH HPI: HPI: Patient is a 26 year old male coming to the emergency department for sickle cell pain. Patient is well-known to the department for pain crises. Patient states the pain is his typical back and legs pain. Patient was also [place] tested for Covid, he has had some shortness of breath and occasional nonproductive cough. No known sick contacts. Patient states he had decreased appetite and p.o. intake. Review of Systems: Review of Systems: All other systems within normal limits except for as noted in the HPI Current Medications: Current Medications Medications (Trade) Dose Ordered Sig/Glenis Start Time Stop Time Status Last Admin Dose Admin Acetaminophen (Tylenol) 650 mg PRN Q4HRS PRN 09/28/21 04:15 09/29/21 04:14 Azithromycin (Zithromax) 500 mg 1X ONCE 09/28/21 04:15 09/28/21 04:16 DC 09/28/21 04:24 500 MG Ceftriaxone Sodium (Rocephin) 1 gm 1X ONCE 09/28/21 04:15 09/28/21 04:16 DC 09/28/21 04:24 1 GM Fentanyl Citrate (Fentanyl 2ml Vial) 50 mcg PRN Q1HR PRN 09/28/21 04:15 09/28/21 13:39 DC 09/28/21 10:30 50 MCG Ondansetron HCl (Zofran) 4 mg PRN Q8HRS PRN 09/28/21 04:15 09/29/21 04:14 Sodium Chloride 1,000 ml @ 100 mls/hr 1X ONCE 09/28/21 04:15 09/28/21 14:14 DC 09/28/21 10:33 100 MLS/HR Allergies: Allergies: Allergies Coded Allergies Type Severity Reaction Last Updated Verified morphine Allergy Severe swelling, hives 08/30/21 Yes Physical Exam: PE: Constitutional: Well developed, well nourished, no acute distress, non-toxic appearance. [] HENT: Normocephalic, atraumatic, bilateral external ears normal, nose normal. [] Eyes: PERRLA, conjunctiva normal, no discharge. [] Neck: No rigidity, supple, no stridor. [] Cardiovascular: Regular rate and rhythm, brisk cap refill [] Lungs & Thorax: Non labored symmetric respirations, no tachypnea or respiratory distress [] Abdomen: Soft, nondistended. Skin: Warm, dry, no erythema, no rash. [] Back: Unremarkable Extremities: No deformities, range of motion grossly intact, no lower extremity edema [] Neurologic: Alert and oriented X 3, no focal deficits noted. [] Psychologic: Affect normal, judgement normal, mood normal. [] Current Patient Data: Labs: Laboratory Tests Test 09/28/21 02:42 09/28/21 03:25 White Blood Count 6.8 x10^3/uL (4.0-11.0) Red Blood Count 2.96 x10^6/uL (4.30-5.70) L Hemoglobin 8.9 g/dL (13.0-17.5) L Hematocrit 25.0 % (39.0-53.0) L Mean Corpuscular Volume 82 fL (79-100) Mean Corpuscular Hemoglobin 29 pg (25-35) Mean Corpuscular Hemoglobin Concent 36 g/dL (31-37) Red Cell Distribution Width 27.8 % (11.5-14.5) H Platelet Count 231 x10^3/uL (140-400) Neutrophils (%) (Auto) 35 % (31-73) Lymphocytes (%) (Auto) 39 % (24-48) Monocytes (%) (Auto) 18 % (0-9) H Eosinophils (%) (Auto) 6 % (0-3) H Basophils (%) (Auto) 2 % (0-3) Neutrophils # (Auto) 2.4 x10^3/uL (1.8-7.7) Lymphocytes # (Auto) 2.7 x10^3/uL (1.0-4.8) Monocytes # (Auto) 1.2 x10^3/uL (0.0-1.1) H Eosinophils # (Auto) 0.4 x10^3/uL (0.0-0.7) Basophils # (Auto) 0.1 x10^3/uL (0.0-0.2) Segmented Neutrophils % 31 % (35-66) L Lymphocytes % 49 % (24-48) H Monocytes % 15 % (0-10) H Eosinophils % 4 % (0-5) Basophils % 1 % (0-3) Nucleated Red Blood Cells 12 Platelet Estimate Adequate (ADEQUATE) Giant Platelets Few Polychromasia Mod Hypochromasia Slight Poikilocytosis Marked Anisocytosis Marked Spherocytes Few Sickle Cells Mod Target Cells Few Ovalocytes Mod Helmet Cells Few Schistocytes Few RBC Morphology Bizarre Forms Few Absolute Reticulocyte Count 0.175 x10^6/uL (0.020-0.120) Percent Reticulocyte Count 5.8 % (0.5-2.3) H Immature Reticulocyte Fraction 0.69 (0.20-0.60) H Sodium Level 141 mmol/L (136-145) Potassium Level 3.8 mmol/L (3.5-5.1) Chloride Level 105 mmol/L (98-107) Carbon Dioxide Level 27 mmol/L (21-32) Anion Gap 9 (6-14) Blood Urea Nitrogen 4 mg/dL (8-26) L Creatinine 0.6 mg/dL (0.7-1.3) L Estimated GFR (Cockcroft-Gault) 200.3 BUN/Creatinine Ratio 7 (6-20) Glucose Level 102 mg/dL (70-99) H Calcium Level 8.2 mg/dL (8.5-10.1) L Total Bilirubin 1.7 mg/dL (0.2-1.0) H Aspartate Amino Transferase (AST) 43 U/L (15-37) H Alanine Aminotransferase (ALT) 38 U/L (16-63) Alkaline Phosphatase 117 U/L (46-116) H RF-Mfn-U-Type Natriuretic Peptide 77 pg/mL (0-124) Total Protein 7.1 g/dL (6.4-8.2) Albumin 3.5 g/dL (3.4-5.0) Albumin/Globulin Ratio 1.0 (1.0-1.7) Influenza Type A Antigen Negative (NEGATIVE) Influenza Type B Antigen Negative (NEGATIVE) SARS-CoV-2 RNA (BRET) Negative (Negative) SARS-CoV-2 Antigen (Rapid) Negative (NEGATIVE) Laboratory Tests 09/28/21 02:42 Laboratory Tests 09/28/21 02:42 Vital Signs: Vital Signs Date Time Temp Pulse Resp B/P (MAP) Pulse Ox O2 Delivery O2 Flow Rate FiO2 09/28/21 04:30 86 18 97 Nasal Cannula 1.0 09/28/21 03:00 120/73 (89) 09/28/21 01:22 98.5 98.5 EKG: EKG: [] Heart Score: C/O Chest Pain: No Risk Factors: Risk Factors: DM, Current or recent (<one month) smoker, HTN, HLP, family history of CAD, obesity. Risk Scores: Score 0 - 3: 2.5% MACE over next 6 weeks - Discharge Home Score 4 - 6: 20.3% MACE over next 6 weeks - Admit for Clinical Observation Score 7 - 10: 72.7% MACE over next 6 weeks - Early Invasive Strategies Radiology/Procedures: Radiology/Procedures: [facility] [address] [place] [address] IMAGING REPORT Signed PATIENT: RASHAUN CHURCH EACCOUNT: [id number] : 1995 LOCATION: ER AGE: 26 SEX: M EXAM STATUS: REG ER ORD. PHYSICIAN: LEE ANN PINA MD REASON: sickle cell PROCEDURE: CHEST AP ONLY XR CHEST 1V Clinical History: Reason: sickle cell / Spl. Instructions: / History: Technique: AP view of the chest was obtained at 09/28/2021 2:15 AM. Comparison: July 28, 2021. Findings: The heart is mildly enlarged. The pulmonary vessels are top normal limits in size. There is mild patchy opacities of the lungs bilaterally. Impression: 1. Cardiomegaly. 2. Patchy opacities in lungs bilaterally is unchanged and could be atypical pneumonia or residual pneumonitis. Electronically signed by: Jesse Mejia III, MD (09/28/2021 2:31 AM) [facility] DICTATED and SIGNED BY: JESSE MEJIA III, MD DATE: 09/28/21 [id number] [] Course & Med Decision Making: Course & Med Decision Making Pertinent Labs and Imaging studies reviewed. (See chart for details) Patient still having a lot of pain after multiple doses of IV pain medications. Admit for pain control [] Dragon Disclaimer: Dragon Disclaimer: This electronic medical record was generated, in whole or in part, using a voice recognition dictation system. Departure Departure Impression: Primary Impression: Sickle cell pain crisis Disposition: ADMITTED INPATIENT Admitting Physician: CAROL Condition: STABLE Referrals: UNKNOWN PCP NAME (PCP) LEE ANN PINA MD Sep 28, 2021 02:17
--- NOTE | 2021-09-28 02:33 | RAD ---
XR CHEST 1V Clinical History: Reason: sickle cell / Spl. Instructions: / History: Technique: AP view of the chest was obtained at 09/28/2021 2:15 AM. Comparison: July 28, 2021. Findings: The heart is mildly enlarged. The pulmonary vessels are top normal limits in size. There is mild patc hy opacities of the lungs bilaterally. Impression: 1. Cardiomegaly. 2. Patchy opacities in lungs bilaterally is unchanged and could be atypical pneumonia or residual pne umonitis. Electronically signed by: Willian Mejia III, MD (09/28/2021 2:31 AM) [facility]
[2021-09-28 02:51] LABS: BASO # 0.1 x10^3/uL (0.0-0.2); BASO % 2 % (0-3); EOS # 0.4 x10^3/uL (0.0-0.7); EOS % 6 % (0-3); HEMOGLOBIN 8.9 g/dL (13.0-17.5); LYMPH # 2.7 x10^3/uL (1.0-4.8); LYMPH % 39 % (24-48); MEAN CORPUSCULAR HEMOGLOBIN 29 pg (25-35); MEAN CORPUSCULAR HGB CONC 36 g/dL (31-37); MEAN CORPUSCULAR VOLUME 82 fL (79-100); MONO # 1.2 x10^3/uL (0.0-1.1); MONO % 18 % (0-9); NEUT # 2.4 x10^3/uL (1.8-7.7); NEUT % 35 % (31-73); PLATELET COUNT 231 x10^3/uL (140-400); RED BLOOD COUNT 3.05 x10^6/uL (4.30-5.70); RED CELL DISTRIBUTION WIDTH 27.8 % (11.5-14.5); WHITE BLOOD COUNT 6.8 x10^3/uL (4.0-11.0)
[2021-09-28 03:00] LABS: CALCIUM 8.2 mg/dL (8.5-10.1); CREATININE 0.6 mg/dL (0.7-1.3); GFR 200.3; POTASSIUM 3.8 mmol/L (3.5-5.1)
[2021-09-28 03:06] LABS: ALBUMIN 3.5 g/dL (3.4-5.0); TOTAL BILIRUBIN 1.7 mg/dL (0.2-1.0); TOTAL PROTEIN 7.1 g/dL (6.4-8.2)
[2021-09-28 03:38] LABS: % BASOS 1 % (0-3); % EOS 4 % (0-5); % LYMPHS 49 % (24-48); % MONOS 15 % (0-10); % SEGS 31 % (35-66); ANISOCYTOSIS MARKED; NUCLEATED RBC 12; PLT ESTIMATE ADEQUATE (ADEQUATE); POIKILOCYTOSIS MARKED
[2021-09-28 03:39] LABS: POLYCHROMASIA MOD; SICKLE CELLS MOD
[2021-09-28 03:40] LABS: HYPOCHROMIA SLIGHT; OVALOCYTES MOD; SPHEROCYTES FEW; TARGET CELLS FEW
[2021-09-28 03:41] LABS: BIZZARE CELLS FEW; HELMET CELLS FEW; SCHISTOCYTES FEW
[2021-09-28 03:46] LABS: INFLUENZA A PATIENT NEGATIVE (NEGATIVE); INFLUENZA B PATIENT NEGATIVE (NEGATIVE)
[2021-09-28] MEDS ORDERED: IV 1/2 NORMAL SALINE 1,000 ML IV ONE (04:15)
[2021-09-28] MEDS ORDERED: cefTRIAXone IV Push 1 GM VIAL. IVP ONE (04:15)
[2021-09-28] MEDS ORDERED: ONDANSETRON PF 4 MG/2 ML VIAL. IVP PRN (04:15)
[2021-09-28] MEDS ORDERED: AZITHROMYCIN 250 MG TABLET. PO ONE (04:15)
[2021-09-28] MEDS ORDERED: ACETAMINOPHEN 325 MG TABLET. PO PRN (04:15)
[2021-09-28 05:10] VITALS: BP 117/66
[2021-09-28 07:00] VITALS: BP 118/74
--- NOTE | 2021-09-28 07:31 | NUR ---
Reassessments from ED cleared on EMAR
[2021-09-28 11:00] VITALS: BP 136/69
[2021-09-28] MEDS ORDERED: oxyCODONE/APAP 7.5/325 1 TAB TABLET PO PRN (13:45)
--- NOTE | 2021-09-28 13:46 | PDOC1 ---
History and Physical Date of Admission Date of Admission DATE: 09/28/21 TIME: 13:40 History of Present Illness History of Present Illness PT seen 0900, asleep, 10am, asleep, discussed at noon Mr. Kenji Montesinos is a 26-year-old male admit from ER for acute pain crisis. Ekaterina arboleda admits, seen here by me 08/15, very freqent ER visits, more than 20 per year He has known sickle cell disease and is currently managed in outpatient setting by [facility] hematology group. . IV fent 75 given, he complains the 50 ordered by the ER is not enough calm and talkativer Past Medical History Pulmonary: No pertinent hx Heme/Onc: Sickle cell disease Renal/: No pertinent hx Endocrine: No pertinent hx Past Surgical History Past Surgical History: No pertinent history Family History Family History: High Cholestrol, Hypertension, Other Social History Smoke: No ALCOHOL: none Drugs: Marijuana Current Problem List Problem List Problems Medical Problems: (1) Sickle cell pain crisis Status: Acute Current Medications Current Medications Current Medications Fentanyl Citrate (Fentanyl 2ml Vial) 75 mcg PRN Q1HR PRN IVP pain Last administered on 09/28/21at 03:16; Start 09/28/21 at 02:00; Stop 09/28/21 at 04:20; Status DC Sodium Chloride 1,000 ml @ 1,000 mls/hr 1X ONCE IV Last administered on 09/28/21at 02:08; Start 09/28/21 at 02:00; Stop 09/28/21 at 02:59; Status DC Sodium Chloride 1,000 ml @ 100 mls/hr 1X ONCE IV Last administered on 09/28/21at 10:33; Start 09/28/21 at 04:15; Stop 09/28/21 at 14:14 Azithromycin (Zithromax) 500 mg 1X ONCE PO Last administered on 09/28/21at 04:24; Start 09/28/21 at 04:15; Stop 09/28/21 at 04:16; Status DC Ceftriaxone Sodium (Rocephin) 1 gm 1X ONCE IVP Last administered on 09/28/21at 04:24; Start 09/28/21 at 04:15; Stop 09/28/21 at 04:16; Status DC Ondansetron HCl (Zofran) 4 mg PRN Q8HRS PRN IVP NAUSEA/VOMITING; Start 09/28/21 at 04:15; Stop 09/29/21 at 04:14 Fentanyl Citrate (Fentanyl 2ml Vial) 50 mcg PRN Q1HR PRN IVP PAIN Last administered on 09/28/21at 10:30; Start 09/28/21 at 04:15; Stop 09/29/21 at 04:14 Acetaminophen (Tylenol) 650 mg PRN Q4HRS PRN PO FEVER > 100.3'F; Start 09/28/21 at 04:15; Stop 09/29/21 at 04:14 Active Scripts Active Reported No Known Medications Prior To Admisstion (Info) Each 1 Each MC 1X Allergies Allergies: Coded Allergies: morphine (Verified Allergy, Severe, swelling, hives, 08/30/21) ROS General: YES: Fatigue; No: Chills, Night Sweats, Malaise, Appetite, Other PSYCHOLOGICAL ROS: YES: Sleep disturbances; No: Anxiety, Behavioral Disorder, Concentration difficultie, Decreased libido, Depression, Disorientation, Hallucinations, Hostility, Irritablity, Memory difficulties, Mood Swings, Obsessive thoughts, Suicidal ideation, Other Eyes: No Blurry vision, No Decreased vision, No Double vision, No Dry eyes, No Excessive tearing, No Eye Pain, No Itchy Eyes, No Loss of vision, No Photophobia, No Scotomata, No Uses contacts, No Uses glasses, No Other HEENT: YES: Heacaches; No: Visual Changes, Hearing change, Nasal congestion, Nasal discharge, Oral lesions, Sinus pain, Sore Throat, Epistaxis, Sneezing, Snoring, Tinnitus, Vertigo, Vocal changes, Other Respiratory: YES: SOB with excertion, Tachypnea; No: Cough, Hemoptysis, Orthopnea, Pleuritic Pain, Shortness of breath, Sputum Changes, Stridor, Wheezing, Other Cardiovascular: No Chest Pain, No Palpitations, No Orthopnea, No Paroxysmal Noc. Dyspnea, No Edema, No Lt Headedness, No Other Gastrointestinal: Yes Nausea; No Vomiting, No Abdominal Pain, No Diarrhea, No Constipation, No Melena, No Hematochezia, No Other Genitourinary: No Dysuria, No Frequency, No Incontinence, No Hematuria, No Retention, No Discharge, No Urgency, No Pain, No Flank Pain, No Other, No , No , No , No , No , No , No Musculoskeletal: Yes Joint Pain, Yes Muscle Pain, Yes Pain In:; No Gait Disturbance, No Joint Stiffness, No Joint Swelling, No Muscular Weakness, No Swelling In:, No Other Neurological: No Behavorial Changes, No Bowel/Bladder ControlChng, No Confusion, No Dizziness, No Gait Disturbance, No Headaches, No Impaired Coord/balance, No Memory Loss, No Numbness/Tingling, No Seizures, No Speech Problems, No Tremors, No Visual Changes, No Weakness, No Other Skin: Yes Dry Skin; No Eczema, No Hair Changes, No Lumps, No Mole Changes, No Mottling, No Nail Changes, No Pruritus, No Rash, No Skin Lesion Changes, No Other, No Acne Physical Exam General: Alert, Cooperative, mild distress Lungs: Clear to auscultation Rectal Exam: not examined PELVIC: Nml ext adnexa Extremities: No cyanosis Neuro: Normal gait, Normal speech, Sensation intact Psych/Mental Status: Mental status NL, Mood NL Vitals Vitals Vital Signs Date Time Temp Pulse Resp B/P (MAP) Pulse Ox O2 Delivery O2 Flow Rate FiO2 09/28/21 11:00 98.1 73 16 136/69 (91) 95 Nasal Cannula 1.0 98.1 Labs Labs Laboratory Tests Test 09/28/21 02:42 09/28/21 03:25 White Blood Count 6.8 x10^3/uL (4.0-11.0) Red Blood Count 2.96 x10^6/uL (4.30-5.70) Hemoglobin 8.9 g/dL (13.0-17.5) Hematocrit 25.0 % (39.0-53.0) Mean Corpuscular Volume 82 fL (79-100) Mean Corpuscular Hemoglobin 29 pg (25-35) Mean Corpuscular Hemoglobin Concent 36 g/dL (31-37) Red Cell Distribution Width 27.8 % (11.5-14.5) Platelet Count 231 x10^3/uL (140-400) Neutrophils (%) (Auto) 35 % (31-73) Lymphocytes (%) (Auto) 39 % (24-48) Monocytes (%) (Auto) 18 % (0-9) Eosinophils (%) (Auto) 6 % (0-3) Basophils (%) (Auto) 2 % (0-3) Neutrophils # (Auto) 2.4 x10^3/uL (1.8-7.7) Lymphocytes # (Auto) 2.7 x10^3/uL (1.0-4.8) Monocytes # (Auto) 1.2 x10^3/uL (0.0-1.1) Eosinophils # (Auto) 0.4 x10^3/uL (0.0-0.7) Basophils # (Auto) 0.1 x10^3/uL (0.0-0.2) Segmented Neutrophils % 31 % (35-66) Lymphocytes % 49 % (24-48) Monocytes % 15 % (0-10) Eosinophils % 4 % (0-5) Basophils % 1 % (0-3) Nucleated Red Blood Cells 12 Platelet Estimate Adequate (ADEQUATE) Giant Platelets Few Polychromasia Mod Hypochromasia Slight Poikilocytosis Marked Anisocytosis Marked Spherocytes Few Sickle Cells Mod Target Cells Few Ovalocytes Mod Helmet Cells Few Schistocytes Few RBC Morphology Bizarre Forms Few Absolute Reticulocyte Count 0.175 x10^6/uL (0.020-0.120) Percent Reticulocyte Count 5.8 % (0.5-2.3) Immature Reticulocyte Fraction 0.69 (0.20-0.60) Sodium Level 141 mmol/L (136-145) Potassium Level 3.8 mmol/L (3.5-5.1) Chloride Level 105 mmol/L (98-107) Carbon Dioxide Level 27 mmol/L (21-32) Anion Gap 9 (6-14) Blood Urea Nitrogen 4 mg/dL (8-26) Creatinine 0.6 mg/dL (0.7-1.3) Estimated GFR (Cockcroft-Gault) 200.3 BUN/Creatinine Ratio 7 (6-20) Glucose Level 102 mg/dL (70-99) Calcium Level 8.2 mg/dL (8.5-10.1) Total Bilirubin 1.7 mg/dL (0.2-1.0) Aspartate Amino Transf (AST/SGOT) 43 U/L (15-37) Alanine Aminotransferase (ALT/SGPT) 38 U/L (16-63) Alkaline Phosphatase 117 U/L (46-116) RK-Rma-M-Type Natriuretic Peptide 77 pg/mL (0-124) Total Protein 7.1 g/dL (6.4-8.2) Albumin 3.5 g/dL (3.4-5.0) Albumin/Globulin Ratio 1.0 (1.0-1.7) Influenza Type A Antigen Negative (NEGATIVE) Influenza Type B Antigen Negative (NEGATIVE) SARS-CoV-2 Antigen (Rapid) Negative (NEGATIVE) Laboratory Tests Test 09/28/21 02:42 09/28/21 03:25 White Blood Count 6.8 x10^3/uL (4.0-11.0) Red Blood Count 2.96 x10^6/uL (4.30-5.70) Hemoglobin 8.9 g/dL (13.0-17.5) Hematocrit 25.0 % (39.0-53.0) Mean Corpuscular Volume 82 fL (79-100) Mean Corpuscular Hemoglobin 29 pg (25-35) Mean Corpuscular Hemoglobin Concent 36 g/dL (31-37) Red Cell Distribution Width 27.8 % (11.5-14.5) Platelet Count 231 x10^3/uL (140-400) Neutrophils (%) (Auto) 35 % (31-73) Lymphocytes (%) (Auto) 39 % (24-48) Monocytes (%) (Auto) 18 % (0-9) Eosinophils (%) (Auto) 6 % (0-3) Basophils (%) (Auto) 2 % (0-3) Neutrophils # (Auto) 2.4 x10^3/uL (1.8-7.7) Lymphocytes # (Auto) 2.7 x10^3/uL (1.0-4.8) Monocytes # (Auto) 1.2 x10^3/uL (0.0-1.1) Eosinophils # (Auto) 0.4 x10^3/uL (0.0-0.7) Basophils # (Auto) 0.1 x10^3/uL (0.0-0.2) Segmented Neutrophils % 31 % (35-66) Lymphocytes % 49 % (24-48) Monocytes % 15 % (0-10) Eosinophils % 4 % (0-5) Basophils % 1 % (0-3) Nucleated Red Blood Cells 12 Platelet Estimate Adequate (ADEQUATE) Giant Platelets Few Polychromasia Mod Hypochromasia Slight Poikilocytosis Marked Anisocytosis Marked Spherocytes Few Sickle Cells Mod Target Cells Few Ovalocytes Mod Helmet Cells Few Schistocytes Few RBC Morphology Bizarre Forms Few Absolute Reticulocyte Count 0.175 x10^6/uL (0.020-0.120) Percent Reticulocyte Count 5.8 % (0.5-2.3) Immature Reticulocyte Fraction 0.69 (0.20-0.60) Sodium Level 141 mmol/L (136-145) Potassium Level 3.8 mmol/L (3.5-5.1) Chloride Level 105 mmol/L (98-107) Carbon Dioxide Level 27 mmol/L (21-32) Anion Gap 9 (6-14) Blood Urea Nitrogen 4 mg/dL (8-26) Creatinine 0.6 mg/dL (0.7-1.3) Estimated GFR (Cockcroft-Gault) 200.3 BUN/Creatinine Ratio 7 (6-20) Glucose Level 102 mg/dL (70-99) Calcium Level 8.2 mg/dL (8.5-10.1) Total Bilirubin 1.7 mg/dL (0.2-1.0) Aspartate Amino Transf (AST/SGOT) 43 U/L (15-37) Alanine Aminotransferase (ALT/SGPT) 38 U/L (16-63) Alkaline Phosphatase 117 U/L (46-116) DA-Xzj-F-Type Natriuretic Peptide 77 pg/mL (0-124) Total Protein 7.1 g/dL (6.4-8.2) Albumin 3.5 g/dL (3.4-5.0) Albumin/Globulin Ratio 1.0 (1.0-1.7) Influenza Type A Antigen Negative (NEGATIVE) Influenza Type B Antigen Negative (NEGATIVE) SARS-CoV-2 Antigen (Rapid) Negative (NEGATIVE) VTE Prophylaxis Ordered VTE Prophylaxis Devices: No VTE Pharmacological Prophylaxi: Yes Assessment/Plan Assessment/Plan sickle cell pain crisis opioid tolerant Justifications for Admission Other Justification Concern for pulmonary embolism OLIVER BLOUNT MD Sep 28, 2021 13:45
[2021-09-28 15:00] VITALS: BP 133/68
[2021-09-28] MEDS: IV 1/2 NORMAL SALINE 1,000 ML IV SCH (17:48)
[2021-09-28 19:00] VITALS: BP 125/77
[2021-09-28 23:00] VITALS: BP 130/68
[2021-09-29] MEDS: fentaNYL PF VIAL 100 MCG/2 ML VIAL IVP PRN ×8 (00:22→20:59)
[2021-09-29] MEDS: IV 1/2 NORMAL SALINE 1,000 ML IV SCH ×3 (02:40→18:13)
[2021-09-29 03:00] VITALS: BP 128/70
[2021-09-29 07:00] VITALS: BP 115/60
--- NOTE | 2021-09-29 07:30 | NUR ---
pt refused morning labs draws
[2021-09-29 11:00] VITALS: BP 119/72
--- NOTE | 2021-09-29 11:29 | NUR ---
SW following. Discussed with RN, pt from home, room air, regular diet, COVID-19 negative. Pain control. Pt will discharge home when medically stable. SW will continue to follow.
[2021-09-29 12:05] LABS: BASO # 0.1 x10^3/uL (0.0-0.2); BASO % 2 % (0-3); EOS # 0.2 x10^3/uL (0.0-0.7); EOS % 3 % (0-3); HEMATOCRIT 26.5 % (39.0-53.0); HEMOGLOBIN 9.2 g/dL (13.0-17.5); LYMPH # 2.8 x10^3/uL (1.0-4.8); LYMPH % 49 % (24-48); MEAN CORPUSCULAR HEMOGLOBIN 29 pg (25-35); MEAN CORPUSCULAR HGB CONC 35 g/dL (31-37); MEAN CORPUSCULAR VOLUME 83 fL (79-100); MONO # 0.7 x10^3/uL (0.0-1.1); MONO % 12 % (0-9); NEUT % 34 % (31-73); PLATELET COUNT 219 x10^3/uL (140-400); RED CELL DISTRIBUTION WIDTH 27.5 % (11.5-14.5); WHITE BLOOD COUNT 5.8 x10^3/uL (4.0-11.0)
[2021-09-29 12:14] LABS: PROTHROMBIN TIME PATIENT 14.2 SEC (11.7-14.0)
[2021-09-29 12:20] LABS: ALBUMIN 3.3 g/dL (3.4-5.0); ALBUMIN/GLOBULIN RATIO 0.9 (1.0-1.7); CALCIUM 8.2 mg/dL (8.5-10.1); CREATININE 0.5 mg/dL (0.7-1.3); GFR 247.2; POTASSIUM 4.7 mmol/L (3.5-5.1); TOTAL BILIRUBIN 1.4 mg/dL (0.2-1.0)
--- NOTE | 2021-09-29 13:40 | PDOC ---
[facility] PROGRESS NOTE Date of Service DOS: DATE: 09/29/21 TIME: 13:32 Chief Complaint Chief Complaint Sickle cell pain crisis opioid tolerant -As needed pain control -Can increase pain meds as needed -Know patient well pain crises usually just take time to resolve History of Present Illness History of Present Illness History of Present Illness PT seen 0900, asleep, 10am, asleep, discussed at noon Mr. Kenji Montesinos is a 26-year-old male admit from ER for acute pain crisis. Ekaterina arboleda admits, seen here by me 08/15, very freqent ER visits, more than 20 per year He has known sickle cell disease and is currently managed in outpatient setting by [facility] hematology [facility]. . IV fent 75 given, he complains the 50 ordered by the ER is not enough calm and talkativer 09/29 Patient evaluated examined at bedside. Resting in bed. Lethargic. Continue pain control as needed for pain crises. Well-known to our service. Stressed importance of follow-up with his hematology team. Continue pain management. Okay to start GREENHOUSE TRANSPLANTER if needed. Vitals/I&O Vitals/I&O: Vital Signs Date Time Temp Pulse Resp B/P (MAP) Pulse Ox O2 Delivery O2 Flow Rate FiO2 09/29/21 12:58 Room Air 09/29/21 11:00 69 18 119/72 (88) 95 1.0 09/29/21 03:00 99.4 99.4 I & O 09/28/21 09/28/21 09/29/21 15:00 23:00 07:00 Intake Total 540 ml Output Total 2000 ml Balance 540 ml -2000 ml Physical Exam General: Alert, Cooperative, mild distress Heart: Regular rate Lungs: Clear Abdomen: Normal bowel sounds, Soft Extremities: No cyanosis Skin: No significant lesion Labs Labs: Laboratory Tests Test 09/29/21 11:50 White Blood Count 5.8 x10^3/uL (4.0-11.0) Red Blood Count 3.22 x10^6/uL (4.30-5.70) Hemoglobin 9.2 g/dL (13.0-17.5) Hematocrit 26.5 % (39.0-53.0) Mean Corpuscular Volume 83 fL (79-100) Mean Corpuscular Hemoglobin 29 pg (25-35) Mean Corpuscular Hemoglobin Concent 35 g/dL (31-37) Red Cell Distribution Width 27.5 % (11.5-14.5) Platelet Count 219 x10^3/uL (140-400) Neutrophils (%) (Auto) 34 % (31-73) Lymphocytes (%) (Auto) 49 % (24-48) Monocytes (%) (Auto) 12 % (0-9) Eosinophils (%) (Auto) 3 % (0-3) Basophils (%) (Auto) 2 % (0-3) Neutrophils # (Auto) 2.0 x10^3/uL (1.8-7.7) Lymphocytes # (Auto) 2.8 x10^3/uL (1.0-4.8) Monocytes # (Auto) 0.7 x10^3/uL (0.0-1.1) Eosinophils # (Auto) 0.2 x10^3/uL (0.0-0.7) Basophils # (Auto) 0.1 x10^3/uL (0.0-0.2) Absolute Reticulocyte Count 0.156 x10^6/uL (0.020-0.120) Percent Reticulocyte Count 4.9 % (0.5-2.3) Immature Reticulocyte Fraction 0.68 (0.20-0.60) Prothrombin Time 14.2 SEC (11.7-14.0) Prothromb Time International Ratio 1.1 (0.8-1.1) Sodium Level 142 mmol/L (136-145) Potassium Level 4.7 mmol/L (3.5-5.1) Chloride Level 106 mmol/L (98-107) Carbon Dioxide Level 27 mmol/L (21-32) Anion Gap 9 (6-14) Blood Urea Nitrogen 4 mg/dL (8-26) Creatinine 0.5 mg/dL (0.7-1.3) Estimated GFR (Cockcroft-Gault) 247.2 BUN/Creatinine Ratio 8 (6-20) Glucose Level 96 mg/dL (70-99) Calcium Level 8.2 mg/dL (8.5-10.1) Total Bilirubin 1.4 mg/dL (0.2-1.0) Aspartate Amino Transf (AST/SGOT) 43 U/L (15-37) Alanine Aminotransferase (ALT/SGPT) 32 U/L (16-63) Alkaline Phosphatase 112 U/L (46-116) Total Protein 7.0 g/dL (6.4-8.2) Albumin 3.3 g/dL (3.4-5.0) Albumin/Globulin Ratio 0.9 (1.0-1.7) Assessment and Plan Assessmemt and Plan Problems Medical Problems: (1) Sickle cell pain crisis Status: Acute Comment Review of Relevant I have reviewed the following items misty (where applicable) has been applied. Medications: Current Medications Medications (Trade) Dose Ordered Sig/Glenis Route PRN Reason Start Time Stop Time Status Last Admin Dose Admin Fentanyl Citrate (Fentanyl 2ml Vial) 100 mcg PRN Q1HR PRN IVP PAIN 09/28/21 13:45 09/29/21 12:58 Sodium Chloride 1,000 ml @ 125 mls/hr Q8H IV 09/28/21 17:45 09/29/21 09:55 Justifications for Admission Other Justification Concern for pulmonary embolism TONIA RUSSELL MD Sep 29, 2021 13:40
[2021-09-29 15:00] VITALS: BP 124/71
[2021-09-29 19:00] VITALS: BP 121/66
[2021-09-29 23:00] VITALS: BP 128/75
[2021-09-30] MEDS: fentaNYL PF VIAL 100 MCG/2 ML VIAL IVP PRN ×7 (00:11→14:15)
[2021-09-30] MEDS: IV 1/2 NORMAL SALINE 1,000 ML IV SCH ×2 (01:45→10:02)
[2021-09-30 03:00] VITALS: BP 124/67
[2021-09-30 07:18] VITALS: BP 131/66
[2021-09-30 10:58] VITALS: BP 129/66
[2021-09-30] MEDS ORDERED: FENT1PAT21 TP (13:53)
[2021-09-30 15:05] VITALS: BP 127/83
--- NOTE | 2021-09-30 15:08 | PDOC3 ---
[facility]-Discharge Summary Date of Admission: Date of Admission: Sep 28, 2021 Date of Discharge: Date of Discharge: Sep 30, 2021 Admission Diagnosis: Problems: (1) Sickle cell anemia with pain Hospital Course: Hospital Course: Chief Complaint Sickle cell pain crisis opioid tolerant -As needed pain control -Can increase pain meds as needed -Know patient well pain crises usually just take time to resolve History of Present Illness History of Present Illness History of Present Illness PT seen 0900, asleep, 10am, asleep, discussed at noon Mr. Kenji Montesinos is a 26-year-old male admit from ER for acute pain crisis. Ekaterina arboleda admits, seen here by me 08/15, very freqent ER visits, more than 20 per year He has known sickle cell disease and is currently managed in outpatient setting by [facility] hematology group. . IV fent 75 given, he complains the 50 ordered by the ER is not enough calm and talkativer 09/29 Patient evaluated examined at bedside. Resting in bed. Lethargic. Continue pain control as needed for pain crises. Well-known to our service. Stressed importance of follow-up with his hematology team. Continue pain management. Okay to start IC ENGINEER if needed. 09/30 Evaluate examined at bedside. Doing okay in terms of pain. Asking for discharge today. This is definitely appropriate will discharge home today. > 30min spent on d/c. 19 min advanced care planning. Disposition: Disposition/Orders: D/C to Home Activity: Activity: Resume previous activity Diet: Diet: Regular Medications: Home Meds Active Scripts Fentanyl (FENTANYL 100mcg/hr) 1 Each Patch.td72, 1 PATCH TP Q3DAYS for pain, #5 PATCH Prov:TONIA RUSSELL MD 09/30/21 Discontinued Reported Medications Info (NO KNOWN MEDICATIONS PRIOR TO ADMISSTION) Each, 1 EACH MC 1X for per pt , EACH 09/28/21 Scheduled Fentanyl (FENTANYL 100mcg/hr), 1 PATCH TP Q3DAYS Discontinued Medications Info (No Known Medications Prior To Admisstion), 1 EACH MC 1X, (Reported) Justicifation of Admission Dx: Justifications for Admission: Justification of Admission Dx: N/A Aspiration Pneumonia: Hemodynamic Instability Sepsis: Dehydration Angina: Cresendo Worsening of Sym TONIA RUSSELL MD Sep 30, 2021 15:08
--- NOTE | 2021-09-30 15:11 | NUR ---
pt discharged to home, picked up by family member, taken out in wheelchair.
== END 2021-09-30 15:33 | disposition home or self-care (01) | DRG 812 ==
LOC: ER 01:33 → 4 NORTH 04:30 → OBSVTOIN 04:31
PROVIDERS: ADMIT Internal Medicine; ATTEND Internal Medicine
DX: D57.00 Hb-SS disease with crisis, unspecified (principal); I51.7 Cardiomegaly; Z20.822 Contact with and (suspected) exposure to COVID-19; Z82.49 Family history of ischemic heart disease and other diseases of the circulatory system
CPT/HCPCS: 36415; 71045; 80053; 83880; 85007; 85025; 85045; 85610; 87428; 96361; 96374; 96375; 96376; G0379; J0696; J3010; J3490; J7030; U0003; U0005; 99285-25; G0378

== ENCOUNTER 2021-10-10 19:46 | Emergency (ER) | payer BC, MEDICARE ==
[~2021-10-10] VITALS: Ht 175.3 cm; Wt 87.0 kg
[~2021-10-10 19:46] MED LIST changes: +FENT1PAT21 TP
[2021-10-10] MEDS ORDERED: IV NORMAL SALINE 1000ML BAG 1,000 ML IV ONE (20:00)
[2021-10-10 20:12] LABS: BASO # 0.1 x10^3/uL (0.0-0.2); BASO % 2 % (0-3); EOS # 0.4 x10^3/uL (0.0-0.7); EOS % 5 % (0-3); HEMATOCRIT 26.2 % (39.0-53.0); HEMOGLOBIN 9.2 g/dL (13.0-17.5); LYMPH # 3.1 x10^3/uL (1.0-4.8); LYMPH % 46 % (24-48); MEAN CORPUSCULAR HEMOGLOBIN 29 pg (25-35); MEAN CORPUSCULAR HGB CONC 35 g/dL (31-37); MEAN CORPUSCULAR VOLUME 83 fL (79-100); MONO # 1.1 x10^3/uL (0.0-1.1); MONO % 17 % (0-9); NEUT # 2.1 x10^3/uL (1.8-7.7); NEUT % 31 % (31-73); PLATELET COUNT 312 x10^3/uL (140-400); RED BLOOD COUNT 3.17 x10^6/uL (4.30-5.70); RED CELL DISTRIBUTION WIDTH 27.4 % (11.5-14.5); WHITE BLOOD COUNT 6.7 x10^3/uL (4.0-11.0)
[2021-10-10 20:23] LABS: CALCIUM 8.3 mg/dL (8.5-10.1); CREATININE 0.7 mg/dL (0.7-1.3); GFR 167.6; POTASSIUM 4.1 mmol/L (3.5-5.1)
[2021-10-10 20:26] LABS: ALBUMIN 3.7 g/dL (3.4-5.0); TOTAL BILIRUBIN 2.1 mg/dL (0.2-1.0); TOTAL PROTEIN 7.4 g/dL (6.4-8.2)
[2021-10-10] MEDS ORDERED: fentaNYL PF VIAL 100 MCG/2 ML VIAL IVP ONE ×2 (20:45→23:30)
--- NOTE | 2021-10-10 21:04 | PHYS DOC ---
Past Medical History Past Medical History: Sickle Cell Disease, Other Additional Past Medical Histor: SICKLE CELL Past Surgical History: No Surgical History Additional Past Surgical Histo: R KNEE SX Smoking Status: Never Smoker Alcohol Use: None Drug Use: None, Marijuana General Adult EDM: Chief Complaint: PAIN CONTROL HPI: HPI: 26-year-old male past medical history of sickle cell disease, presents to the ED (well known to [facility] and myself), with complaints of back and leg pain stating that his sickle cell pain, present for the past 4 days. Reports bilateral, nonmidline, upper back pain and pain in both upper thighs. reports his disease is managed by Dr. Alvaro Mcallister at pain management. Receives oxycodone 15 mg 4 times daily every 2 weeks. Last refill was on September 29. Also has a fentanyl patch 25 mcg. Denies any known sick contacts. Reports this is his typical sickle cell pain. Denies any says any chest pain, shortness of breath, hemoptysis, leg swelling, saddle anesthesia, urine or bowel retention or incontinence, dysuria, hematuria, vomiting, diarrhea, bloody emesis, bloody stools, fever chills, flank pain or flulike symptoms. Asked if he can drink water while in the emergency department. Asks what pain medication he is going to receive. Denies any alcohol, ivdu or illicit drug use. Review of Systems: Review of Systems: Constitutional: Denies fever or chills. [] Eyes: Denies change in visual acuity. [] HENT: Denies nasal congestion or sore throat. [] Respiratory: Denies cough or shortness of breath. [] Cardiovascular: Denies chest pain or edema. [] GI: Denies abdominal pain, nausea, vomiting, bloody stools or diarrhea. [] : Denies dysuria hematuria Musculoskeletal: Denies midline back pain or joint pain. [] Integument: Denies rash or diaphoresis Neurologic: Denies headache, focal weakness or sensory changes. [] Endocrine: Denies polyuria or polydipsia. [] Lymphatic: Denies swollen glands. [] Psychiatric: Denies depression or anxiety. [] Heart Score: C/O Chest Pain: No Risk Factors: Risk Factors: DM, Current or recent (<one month) smoker, HTN, HLP, family history of CAD, obesity. Risk Scores: Score 0 - 3: 2.5% MACE over next 6 weeks - Discharge Home Score 4 - 6: 20.3% MACE over next 6 weeks - Admit for Clinical Observation Score 7 - 10: 72.7% MACE over next 6 weeks - Early Invasive Strategies Current Medications: Current Medications Medications (Trade) Dose Ordered Sig/[facility] Start Time Stop Time Status Last Admin Dose Admin Fentanyl Citrate (Fentanyl 2ml Vial) 75 mcg 1X ONCE 10/10/21 20:45 10/10/21 20:46 DC Sodium Chloride 1,000 ml @ 1,000 mls/hr 1X ONCE 10/10/21 20:00 10/10/21 20:59 DC 10/10/21 20:24 1,000 MLS/HR Allergies: Allergies: Allergies Coded Allergies Type Severity Reaction Last Updated Verified morphine Allergy Severe swelling, hives 10/10/21 Yes Physical Exam: PE: Constitutional: Well developed, well nourished, no acute distress, non-toxic appearance, sitting comfortably using his cell phone HENT: Normocephalic, atraumatic, Eyes: EOMI, conjunctiva normal, no discharge. Neck: Normal range of motion, supple, Cardiovascular: S1/2 present, regular rhythm Lungs & Thorax: Speaking in full sentences, bilateral equal chest rise, no tachypnea or increased work of breathing Abdomen: soft, no tenderness, Skin: Warm, dry, no erythema, no rash. [] Back: No midline tenderness, no CVA tenderness. [] Extremities: No tenderness, no cyanosis, no lower extremity edema, scar left medial ankle-blunt injury in childhood Neurologic: Alert and oriented X 3, normal motor function, normal sensory fun ction, no focal deficits noted. [] Psychologic: Affect normal, judgement normal, mood normal. [] Current Patient Data: Labs: Laboratory Tests Test 10/10/21 20:05 White Blood Count 6.7 x10^3/uL (4.0-11.0) Red Blood Count 3.17 x10^6/uL (4.30-5.70) L Hemoglobin 9.2 g/dL (13.0-17.5) L Hematocrit 26.2 % (39.0-53.0) L Mean Corpuscular Volume 83 fL (79-100) Mean Corpuscular Hemoglobin 29 pg (25-35) Mean Corpuscular Hemoglobin Concent 35 g/dL (31-37) Red Cell Distribution Width 27.4 % (11.5-14.5) H Platelet Count 312 x10^3/uL (140-400) Neutrophils (%) (Auto) 31 % (31-73) Lymphocytes (%) (Auto) 46 % (24-48) Monocytes (%) (Auto) 17 % (0-9) H Eosinophils (%) (Auto) 5 % (0-3) H Basophils (%) (Auto) 2 % (0-3) Neutrophils # (Auto) 2.1 x10^3/uL (1.8-7.7) Lymphocytes # (Auto) 3.1 x10^3/uL (1.0-4.8) Monocytes # (Auto) 1.1 x10^3/uL (0.0-1.1) Eosinophils # (Auto) 0.4 x10^3/uL (0.0-0.7) Basophils # (Auto) 0.1 x10^3/uL (0.0-0.2) Platelet Estimate Pending Absolute Reticulocyte Count 0.211 x10^6/uL (0.020-0.120) Percent Reticulocyte Count 6.6 % (0.5-2.3) H Immature Reticulocyte Fraction 0.71 (0.20-0.60) H Sodium Level 143 mmol/L (136-145) Potassium Level 4.1 mmol/L (3.5-5.1) Chloride Level 104 mmol/L (98-107) Carbon Dioxide Level 27 mmol/L (21-32) Anion Gap 12 (6-14) Blood Urea Nitrogen 4 mg/dL (8-26) L Creatinine 0.7 mg/dL (0.7-1.3) Estimated GFR (Cockcroft-Gault) 167.6 BUN/Creatinine Ratio 6 (6-20) Glucose Level 109 mg/dL (70-99) H Calcium Level 8.3 mg/dL (8.5-10.1) L Total Bilirubin 2.1 mg/dL (0.2-1.0) H Aspartate Amino Transferase (AST) 42 U/L (15-37) H Alanine Aminotransferase (ALT) 28 U/L (16-63) Alkaline Phosphatase 104 U/L (46-116) Total Protein 7.4 g/dL (6.4-8.2) Albumin 3.7 g/dL (3.4-5.0) Albumin/Globulin Ratio 1.0 (1.0-1.7) Laboratory Tests 10/10/21 20:05 Laboratory Tests 10/10/21 20:05 Vital Signs: Vital Signs Date Time Temp Pulse Resp B/P (MAP) Pulse Ox O2 Delivery O2 Flow Rate FiO2 10/10/21 20:30 90 16 133/76 (95) 96 Room Air 10/10/21 19:50 98.8 98.8 EKG: EKG: Sinus rhythm 90 bpm, no axis deviation, QTC 481, T wave inversion lead III, no ST elevation or ST depression, patient denies any active chest pain Radiology/Procedures: Radiology/Procedures: [] IMAGING REPORT Signed PATIENT: RASHAUN CHURCH EACCOUNT: [id number] : 1995 LOCATION: ER AGE: 26 SEX: M EXAM STATUS: REG ER ORD. PHYSICIAN: ERNIE PERDOMO DO REASON: back pain PROCEDURE: CHEST AP ONLY XR CHEST 1V History: Back pain Comparison: 09/28/2021. Technique: Portable AP radiograph of the chest. Findings: The lungs are adequately inflated. There are patchy bilateral airspace opacities similar to comparison. Mild prominence of pulmonary vasculature. No effusion or pneumothorax. Stable prominent cardiac silhouette. Osseous structures and soft tissues are unremarkable. Impression: 1. Similar appearance of patchy bilateral airspace opacities may represent atypical infection or scarring. 2. Mild cardiomegaly. Electronically signed by: Juan David Samaniego MD (10/10/2021 11:41 PM) [facility] DICTATED and SIGNED BY: JUAN DAVID SAMANIEGO MD DATE: 10/10/21 [id number] 0 Course & Med Decision Making: Course & Med Decision Making Pertinent Labs and Imaging studies reviewed. (See chart for details) Concern for his sickle cell crisis pain. Labs with no significant abnormality, no leukocytosis. Patient did show me (on his cell phone) that he refilled his oxycodone medication on September 29, 2021, thus a negative drug screen for opioids is surprising (noncompliance?). Pt with full pain relief with analgesia in the ED. Patient hemodynamically stable, resting comfortably, in no distress and playing on his cell phone. Will discharge home with strict ED return precautions were given for severe pain, fever, chest pain or shortness of breath. Encouraged urgent outpatient follow-up with PMD and pain management. Life-threatening processes were considered but are low suspicion at this time, given history, physical exam and ED workup. Pt was educated on all prescription medications and adverse effects. All patient's questions were answered and pt was stable at time of discharge. Life/limb-threatening differential includes but is not limited to, vaso- occlusive crisis or aplastic crisis. I have spoken with the patient and/or caregivers. I explained the patient's condition, diagnoses and treatment plan based on the information available to me at this time. I have answered the patient and/or caregiver's questions and addressed any concerns. The patient and/or caregivers have a good understanding of patient's diagnosis, condition and treatment plan as can be expected at this point. Vital signs have been stable. Patient's condition is stable and appropriate for discharge from the emergency department. Patient will pursue further outpatient evaluation with primary care physician or other designated or consulting physician as outlined in the discharge instructions. The patient and/or caregivers are agreeable to this plan of care and follow-up instructions have been explained in detail. The patient and/or caregivers have received these instructions in written form and have expressed an understanding of the discharge instructions. The patient and/or caregivers are aware that any significant change of condition or worsening of symptoms should prompt immediate return to this or the closest emergency department or call to 911. Candelario Disclaimer: Candelario Disclaimer: This electronic medical record was generated, in whole or in part, using a voice recognition dictation system. 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 We trust that you had a positive experience in our Emergency Department. If you wish to speak to the department management, you may call the Director at [phone]. YOUR FOLLOW UP INSTRUCTIONS ARE FOLLOWS: 1. Do you have a private Doctor? If you do not have a private doctor, please ask for a resource list of physicians or clinics that may be able to assist you with follow up care. 2. The Emergency Physicain has interpreted your x-rays. The X-Ray specialist will also review them. If there is a change in the findings, you will be notified in 48 hours when at all possible. 3. A lab test or culture has been done, your results will be reviewed and you will be notified if you need a change in treatment. ADDITIONAL INSTRUCTIONS AND INFORMATION: 1. Your care today has been supervised by a physician who is specially trained in emergency care. Many problems require more than one evaluation for a complete diagnosis and treatment. We recommend that you schedule your follow up appointment as recommended to ensure complete treatment of you illness or injury. If you are unable to obtain follow up care and continue to have a problem, or if your condition worsens, we recommend that you return to the ED. 2. We are not able to safely determine your condition over the phone nor are we able to give sound medical advice over the phone. For these safety reasons, if you call for medical advice we will ask you to come to the ED for further evaluation. 3. If you have any questions regarding these discharge instructions please call the ED at [phone]. SAFETY INFORMATION: In the interest of safety, wellness, and injury prevention; we encourage you to wear your sealbelt, if you smoke; quite smoking, and we encourage family to use a protective helmet for bicycling and other sporting events that present an increased risk for head injury. IF YOUR SYMPTOMS WORSEN OR NEW SYMPTOMS DEVELOP, OR YOU HAVE CONCERNS ABOUT YOUR CONDITION; OR IF YOUR CONDITION WORSENS WHILE YOU ARE WAITING FOR YOUR FOLLOW UP APPOINTMENT; EITHER CONTACT YOUR PRIMARY CARE DOCTOR, THE PHYSICIAN WHOSE NAME AND NUMBER YOU WERE GIVEN, OR RETURN TO THE ED IMMEDIATELY. ERNIE PERDOMO DO Oct 10, 2021 21:04
[2021-10-10 21:14] LABS: OVALOCYTES MOD; SICKLE CELLS MANY
[2021-10-10 21:15] LABS: PLT ESTIMATE ADEQUATE (ADEQUATE); POIKILOCYTOSIS MARKED; POLYCHROMASIA MOD; TARGET CELLS MOD
[2021-10-10] MEDS ORDERED: KETOROLAC 15 MG/ML VIAL. IVP ONE (21:15)
[2021-10-10 21:16] LABS: HOWELL-JOLLY BODIES PRESENT
[2021-10-10 21:17] LABS: ANISOCYTOSIS MARKED; HELMET CELLS OCC; SCHISTOCYTES OCC
[2021-10-10 21:19] LABS: BIZZARE CELLS OCC
--- NOTE | 2021-10-10 23:44 | RAD ---
XR CHEST 1V History: Back pain Comparison: 09/28/2021. Technique: Portable AP radiograph of the chest. Findings: The lungs are adequately inflated. There are patchy bilateral airspace opacities similar to compariso n. Mild prominence of pulmonary vasculature. No effusion or pneumothorax. Stable prominent cardiac si lhouette. Osseous structures and soft tissues are unremarkable. Impression: 1. Similar appearance of patchy bilateral airspace opacities may represent atypical infection or sca rring. 2. Mild cardiomegaly. Electronically signed by: Juan David Francisco MD (10/10/2021 11:41 PM) [facility]
[2021-10-10 23:47] LABS: BILIRUBIN,URINE NEGATIVE (NEG); CLARITY,URINE CLOUDY; COLOR,URINE YELLOW; NITRITE,URINE NEGATIVE (NEG); PH,URINE 7.5 (<5.0-8.0); PROTEIN,URINE NEGATIVE (NEG-TRACE)
[2021-10-10 23:55] LABS: AMPHETAMINE/METHAMPHETAMINE NEG (NEG); BARBITURATES NEG (NEG); BENZODIAZEPINES NEG (NEG); CANNABINOIDS POS (NEG); COCAINE NEG (NEG); METHADONE NEG (NEG); OPIATES NEG (NEG); PHENCYCLIDINE NEG (NEG)
[2021-10-10 23:57] LABS: BACTERIA,URINE 0 /HPF (0-FEW); RBC,URINE 0 /HPF (0-2); WBC,URINE 0 /HPF (0-4)
[2021-10-11] MEDS ORDERED: fentaNYL PF VIAL 100 MCG/2 ML VIAL IVP ONE (00:15)
[2021-10-11 00:50] VITALS: BP 117/65
[2021-10-12] MEDS ORDERED: OXYC15TA22 PO (14:06)
== END 2021-10-11 01:01 | disposition home or self-care (01) ==
LOC: ER 19:46
DX: D57.00 Hb-SS disease with crisis, unspecified (principal); F12.90 Cannabis use, unspecified, uncomplicated
CPT/HCPCS: 36415; 71045; 80053; 80307; 81001; 82550; 85025; 85045; 96361; 96374; 96375; 96376; 99285; J1885; J3010; J7030

== ENCOUNTER 2021-10-12 12:09 | Emergency (ER) | payer BC, MEDICARE ==
[~2021-10-12] VITALS: Ht 175.3 cm; Wt 90.8 kg
[2021-10-12] MEDS ORDERED: HYDROmorphone 2 MG/ML INJ. IVP ONE ×2 (13:00→14:15)
[2021-10-12 13:38] LABS: BASO # 0.1 x10^3/uL (0.0-0.2); BASO % 2 % (0-3); EOS # 0.3 x10^3/uL (0.0-0.7); EOS % 4 % (0-3); HEMATOCRIT 25.1 % (39.0-53.0); HEMOGLOBIN 8.7 g/dL (13.0-17.5); LYMPH # 2.6 x10^3/uL (1.0-4.8); LYMPH % 43 % (24-48); MEAN CORPUSCULAR HEMOGLOBIN 29 pg (25-35); MEAN CORPUSCULAR HGB CONC 35 g/dL (31-37); MEAN CORPUSCULAR VOLUME 83 fL (79-100); MONO # 0.9 x10^3/uL (0.0-1.1); MONO % 15 % (0-9); NEUT # 2.2 x10^3/uL (1.8-7.7); NEUT % 36 % (31-73); PLATELET COUNT 275 x10^3/uL (140-400); RED BLOOD COUNT 3.05 x10^6/uL (4.30-5.70); RED CELL DISTRIBUTION WIDTH 27.4 % (11.5-14.5); WHITE BLOOD COUNT 6.1 x10^3/uL (4.0-11.0)
[2021-10-12 13:43] LABS: CALCIUM 8.6 mg/dL (8.5-10.1); CREATININE 0.5 mg/dL (0.7-1.3); GFR 247.2; POTASSIUM 4.5 mmol/L (3.5-5.1)
[2021-10-12] MEDS ORDERED: OXYC15TA22 PO (14:06)
--- NOTE | 2021-10-12 14:07 | PHYS DOC ---
Past Medical History Past Medical History: Sickle Cell Disease, Other Additional Past Medical Histor: SICKLE CELL Past Surgical History: No Surgical History Additional Past Surgical Histo: R KNEE SX Smoking Status: Never Smoker Alcohol Use: None Drug Use: None, Marijuana General Adult EDM: Chief Complaint: PAIN CONTROL HPI: HPI: Patient is a 26 year old male with history of sickle cell anemia who is well- known to this emergency department who presents with sickle cell pain. States that the pain has been worse over the past 2 to 3 days. It is in his low back and his thighs. States that this is typical of his sickle cell pain. Denies any fever, chills, chest pain, or shortness of breath. Denies any rashes or skin changes. States he has been compliant with his medications. Takes Roxicodone 15 mg every 6 hours at home for pain. 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 Bryan, based at . Review of Systems: Review of Systems: Constitutional: Denies fever or chills. [] Eyes: Denies change in visual acuity. [] HENT: Denies nasal congestion or sore throat. [] Respiratory: Denies cough or shortness of breath. [] Cardiovascular: Denies chest pain or edema. [] GI: Denies abdominal pain, nausea, vomiting, bloody stools or diarrhea. [] : Denies dysuria. [] Musculoskeletal: Reports low back pain and thigh pain. Integument: Denies rash. [] Neurologic: Denies headache, focal weakness or sensory changes. [] Psychiatric: Denies depression or anxiety. [] Heart Score: C/O Chest Pain: No Current Medications: Current Medications Medications (Trade) Dose Ordered Sig/[facility] Start Time Stop Time Status Last Admin Dose Admin Hydromorphone HCl (Dilaudid) 1.5 mg 1X ONCE 10/12/21 13:00 10/12/21 13:01 DC 10/12/21 13:42 1.5 MG Allergies: Allergies: Allergies Coded Allergies Type Severity Reaction Last Updated Verified morphine Allergy Severe swelling, hives 10/10/21 Yes Physical Exam: PE: Constitutional: Well developed, well nourished, no acute distress, non-toxic appearance. [] HENT: Normocephalic, atraumatic, bilateral external ears normal, oropharynx moist, no oral exudates, nose normal. [] Eyes: PERRLA, EOMI, conjunctiva normal, no discharge. [] Neck: Normal range of motion, no tenderness, supple, no stridor. [] Cardiovascular:Heart rate regular rhythm, no murmur [] Lungs & Thorax: Bilateral breath sounds clear to auscultation [] Abdomen: Bowel sounds normal, soft, no tenderness, no masses, no pulsatile masses. [] Skin: Warm, dry, no erythema, no rash. [] Back: No tenderness, no CVA tenderness. [] Extremities: No tenderness, no cyanosis, no clubbing, ROM intact, no edema. [] Neurologic: Alert and oriented X 3, normal motor function, normal sensory function, no focal deficits noted. [] Psychologic: Affect normal, judgement normal, mood normal. [] Current Patient Data: Labs: Laboratory Tests Test 10/12/21 13:15 White Blood Count 6.1 x10^3/uL (4.0-11.0) Red Blood Count 3.04 x10^6/uL (4.30-5.70) L Hemoglobin 8.7 g/dL (13.0-17.5) L Hematocrit 25.1 % (39.0-53.0) L Mean Corpuscular Volume 83 fL (79-100) Mean Corpuscular Hemoglobin 29 pg (25-35) Mean Corpuscular Hemoglobin Concent 35 g/dL (31-37) Red Cell Distribution Width 27.4 % (11.5-14.5) H Platelet Count 275 x10^3/uL (140-400) Neutrophils (%) (Auto) 36 % (31-73) Lymphocytes (%) (Auto) 43 % (24-48) Monocytes (%) (Auto) 15 % (0-9) H Eosinophils (%) (Auto) 4 % (0-3) H Basophils (%) (Auto) 2 % (0-3) Neutrophils # (Auto) 2.2 x10^3/uL (1.8-7.7) Lymphocytes # (Auto) 2.6 x10^3/uL (1.0-4.8) Monocytes # (Auto) 0.9 x10^3/uL (0.0-1.1) Eosinophils # (Auto) 0.3 x10^3/uL (0.0-0.7) Basophils # (Auto) 0.1 x10^3/uL (0.0-0.2) Platelet Estimate Pending Absolute Reticulocyte Count 0.199 x10^6/uL (0.020-0.120) Percent Reticulocyte Count 6.6 % (0.5-2.3) H Immature Reticulocyte Fraction 0.66 (0.20-0.60) H Sodium Level 141 mmol/L (136-145) Potassium Level 4.5 mmol/L (3.5-5.1) Chloride Level 106 mmol/L (98-107) Carbon Dioxide Level 26 mmol/L (21-32) Anion Gap 9 (6-14) Blood Urea Nitrogen 4 mg/dL (8-26) L Creatinine 0.5 mg/dL (0.7-1.3) L Estimated GFR (Cockcroft-Gault) 247.2 Glucose Level 81 mg/dL (70-99) Calcium Level 8.6 mg/dL (8.5-10.1) Laboratory Tests 10/12/21 13:15 Laboratory Tests 10/12/21 13:15 Vital Signs: Vital Signs Date Time Temp Pulse Resp B/P (MAP) Pulse Ox O2 Delivery O2 Flow Rate FiO2 10/12/21 12:15 98.8 70 18 124/60 (81) 94 Room Air 98.8 EKG: EKG: [] Radiology/Procedures: Radiology/Procedures: [] Course & Med Decision Making: Course & Med Decision Making Pertinent Labs and Imaging studies reviewed. (See chart for details) Patient is a 26-year-old male who is well-known to this emergency department with history of sickle cell anemia who presents with complaints of sickle cell pain. Afebrile, vital signs stable, satting well on room air. No distress on examination. Low suspicion for complications such as acute chest. No evidence of acute anemia on labs. Reticulocyte count appropriate. Pain better controlled after IV Dilaudid. States that he is run out of his oxycodone. Will prescribe enough to get him through the evening, with instructions to call his hematology office first thing tomorrow morning. Candelario Disclaimer: Candelario Disclaimer: This electronic medical record was generated, in whole or in part, using a voice recognition dictation system. Departure Departure Impression: Primary Impression: Sickle cell pain crisis Disposition: 01 HOME / SELF CARE / HOMELESS Condition: STABLE Referrals: UNKNOWN PCP NAME (PCP) Patient Instructions: Sickle Cell Pain Crisis Scripts Oxycodone Hcl (ROXICODONE) 15 Mg Tablet 1 TAB PO QIDPRN PRN for pain MDD 4 Tablet(s), #6 TAB 0 Refills Prov: ARA FAUSTIN MD 10/12/21 ARA FAUSTIN MD Oct 12, 2021 14:07
[2021-10-12 14:11] LABS: ANISOCYTOSIS MARKED; OVALOCYTES PRESENT; PLT ESTIMATE ADEQUATE (ADEQUATE); POIKILOCYTOSIS MARKED; POLYCHROMASIA PRESENT; SICKLE CELLS PRESENT; TARGET CELLS PRESENT
[2021-10-12 14:12] VITALS: BP 101/56
[2021-10-12 14:12] LABS: HOWELL-JOLLY BODIES PRESENT; SCHISTOCYTES OCC
== END 2021-10-12 14:45 | disposition home or self-care (01) ==
LOC: ER 12:09
DX: D57.00 Hb-SS disease with crisis, unspecified (principal); M54.50 Low back pain, unspecified; Z88.5 Allergy status to narcotic agent
CPT/HCPCS: 36415; 80048; 85025; 85045; 96374; 96375; 99285; J1170

== ENCOUNTER 2021-10-20 10:00 | Emergency (ER) | payer BC, MEDICARE ==
[~2021-10-20] VITALS: Ht 180.3 cm; Wt 90.9 kg
[2021-10-20] MEDS ORDERED: IV NORMAL SALINE 1000ML BAG 1,000 ML IV ONE (10:45)
[2021-10-20] MEDS ORDERED: ONDANSETRON PF 4 MG/2 ML VIAL. IVP ONE (10:45)
[2021-10-20] MEDS ORDERED: HYDROmorphone 2 MG/ML INJ. IVP ONE ×2 (10:45→13:00)
[2021-10-20 11:01] LABS: BILIRUBIN,URINE NEGATIVE (NEG); CLARITY,URINE CLEAR; COLOR,URINE YELLOW; NITRITE,URINE NEGATIVE (NEG); PROTEIN,URINE NEGATIVE (NEG-TRACE)
[2021-10-20 11:04] LABS: BACTERIA,URINE 0 /HPF (0-FEW); RBC,URINE 0 /HPF (0-2); WBC,URINE 0 /HPF (0-4)
[2021-10-20 11:13] LABS: BASO # 0.1 x10^3/uL (0.0-0.2); BASO % 0 % (0-3); EOS # 0.1 x10^3/uL (0.0-0.7); EOS % 1 % (0-3); HEMATOCRIT 27.9 % (39.0-53.0); HEMOGLOBIN 9.7 g/dL (13.0-17.5); LYMPH # 1.4 x10^3/uL (1.0-4.8); LYMPH % 9 % (24-48); MEAN CORPUSCULAR HEMOGLOBIN 29 pg (25-35); MEAN CORPUSCULAR HGB CONC 35 g/dL (31-37); MEAN CORPUSCULAR VOLUME 83 fL (79-100); MONO # 2.1 x10^3/uL (0.0-1.1); MONO % 13 % (0-9); NEUT # 12.3 x10^3/uL (1.8-7.7); NEUT % 77 % (31-73); PLATELET COUNT 319 x10^3/uL (140-400); RED BLOOD COUNT 3.37 x10^6/uL (4.30-5.70); RED CELL DISTRIBUTION WIDTH 26.4 % (11.5-14.5); WHITE BLOOD COUNT 15.9 x10^3/uL (4.0-11.0)
[2021-10-20 11:24] LABS: CALCIUM 8.9 mg/dL (8.5-10.1); CREATININE 0.6 mg/dL (0.7-1.3); GFR 200.3; POTASSIUM 3.7 mmol/L (3.5-5.1)
[2021-10-20 11:29] LABS: ALBUMIN 4.4 g/dL (3.4-5.0); ALBUMIN/GLOBULIN RATIO 1.2 (1.0-1.7); TOTAL BILIRUBIN 2.3 mg/dL (0.2-1.0); TOTAL PROTEIN 8.2 g/dL (6.4-8.2)
[2021-10-20 11:32] LABS: INFLUENZA A PATIENT NEGATIVE (NEGATIVE); INFLUENZA B PATIENT NEGATIVE (NEGATIVE)
[2021-10-20 12:03] LABS: % LYMPHS 19 % (24-48); % MONOS 11 % (0-10); % SEGS 70 % (35-66); NUCLEATED RBC 2
[2021-10-20 12:04] LABS: PLT ESTIMATE ADEQUATE (ADEQUATE)
[2021-10-20 12:05] LABS: SICKLE CELLS PRESENT
[2021-10-20 12:06] LABS: ANISOCYTOSIS PRESENT
[2021-10-20 12:58] VITALS: BP 136/85
[2021-10-20] MEDS ORDERED: HYDR-2761 PO (13:08)
--- NOTE | 2021-10-20 13:09 | PHYS DOC ---
Past Medical History Past Medical History: Sickle Cell Disease, Other Additional Past Medical Histor: SICKLE CELL Past Surgical History: No Surgical History Additional Past Surgical Histo: R KNEE SX Smoking Status: Never Smoker Alcohol Use: None Drug Use: None, Marijuana Adult General Chief Complaint Chief Complaint: PAIN CONTROL HPI HPI Patient is a 26 year old male with history of sick cell disease. He presents with pain to the lower extremities bilaterally. He is not any chest pain, shortness of breath or fever. No recent trauma that he is aware of. No recent illness. Review of Systems Review of Systems Constitutional: Denies fever Eyes: Denies change in visual acuity or eye pain HENT: Denies sore throat Respiratory: Denies shortness of breath Cardiovascular: Denies chest pain GI: Denies abd pain : Denies dysuria Musculoskeletal: Denies back or extremity injury Integument: Denies rash or skin lesions Neurologic: Denies headache, focal weakness or sensory changes All other systems were reviewed and found to be within normal limits, except as documented in this note. Current Medications Current Medications Current Medications Medications (Trade) Dose Ordered Sig/Glenis Start Time Stop Time Status Last Admin Dose Admin Hydromorphone HCl (Dilaudid) 2 mg 1X ONCE 10/20/21 13:00 10/20/21 13:01 DC 10/20/21 12:56 2 MG Ondansetron HCl (Zofran) 4 mg 1X ONCE 10/20/21 10:45 10/20/21 10:54 DC 10/20/21 10:58 4 MG Sodium Chloride 1,000 ml @ 1,000 mls/hr 1X ONCE 10/20/21 10:45 10/20/21 11:44 DC 10/20/21 10:45 1,000 MLS/HR Allergies Allergies Allergies Coded Allergies Type Severity Reaction Last Updated Verified morphine Allergy Severe swelling, hives 10/20/21 Yes Physical Exam Physical Exam Constitutional: Well developed, well nourished, no acute distress, non-toxic appearance. HENT: Normocephalic, atraumatic, bilateral external ears normal, mucosa moist, nose normal. Eyes: EOMI, conjunctiva normal, no discharge. Neck: Normal range of motion, supple, no stridor, no meningeal signs. Cardiovascular: Regular rate and rhythm Lungs & Thorax: Bilateral breath sounds clear to auscultation Abdomen: Soft, no tenderness or obvious masses Skin: Warm, dry, no erythema, no rash. Extremities: No tenderness, no cyanosis, no clubbing, ROM intact, no edema. Neurologic: Alert and oriented, normal motor function, normal sensory function, no focal deficits noted. Psychologic: Affect normal, judgement normal, mood normal. Current Patient Data Vital Signs Vital Signs Date Time Temp Pulse Resp B/P (MAP) Pulse Ox O2 Delivery O2 Flow Rate FiO2 10/20/21 12:58 86 15 136/85 (102) 97 Room Air 10/20/21 10:01 100.1 100.1 Lab Values Laboratory Tests Test 10/20/21 10:15 10/20/21 11:00 Urine Collection Type Void Urine Color Yellow Urine Clarity Clear Urine pH 6.0 (<5.0-8.0) Urine Specific [place] 1.015 (1.000-1.030) Urine Protein Negative mg/dL (NEG-TRACE) Urine Glucose (UA) Negative mg/dL (NEG) Urine Ketones (Stick) Negative mg/dL (NEG) Urine Blood Negative (NEG) Urine Nitrite Negative (NEG) Urine Bilirubin Negative (NEG) Urine Urobilinogen Dipstick 1.0 mg/dL (0.2 mg/dL) Urine Leukocyte Esterase Negative (NEG) Urine RBC 0 /HPF (0-2) Urine WBC 0 /HPF (0-4) Urine Bacteria 0 /HPF (0-FEW) White Blood Count 15.9 x10^3/uL (4.0-11.0) H Red Blood Count 3.42 x10^6/uL (4.30-5.70) L Hemoglobin 9.7 g/dL (13.0-17.5) L Hematocrit 27.9 % (39.0-53.0) L Mean Corpuscular Volume 83 fL (79-100) Mean Corpuscular Hemoglobin 29 pg (25-35) Mean Corpuscular Hemoglobin Concent 35 g/dL (31-37) Red Cell Distribution Width 26.4 % (11.5-14.5) H Platelet Count 319 x10^3/uL (140-400) Neutrophils (%) (Auto) 77 % (31-73) H Lymphocytes (%) (Auto) 9 % (24-48) L Monocytes (%) (Auto) 13 % (0-9) H Eosinophils (%) (Auto) 1 % (0-3) Basophils (%) (Auto) 0 % (0-3) Neutrophils # (Auto) 12.3 x10^3/uL (1.8-7.7) H Lymphocytes # (Auto) 1.4 x10^3/uL (1.0-4.8) Monocytes # (Auto) 2.1 x10^3/uL (0.0-1.1) H Eosinophils # (Auto) 0.1 x10^3/uL (0.0-0.7) Basophils # (Auto) 0.1 x10^3/uL (0.0-0.2) Segmented Neutrophils % 70 % (35-66) H Lymphocytes % 19 % (24-48) L Monocytes % 11 % (0-10) H Nucleated Red Blood Cells 2 Platelet Estimate Adequate (ADEQUATE) Anisocytosis Present Sickle Cells Present Absolute Reticulocyte Count 0.182 x10^6/uL (0.020-0.120) Percent Reticulocyte Count 5.3 % (0.5-2.3) H Immature Reticulocyte Fraction 0.72 (0.20-0.60) H Sodium Level 137 mmol/L (136-145) Potassium Level 3.7 mmol/L (3.5-5.1) Chloride Level 102 mmol/L (98-107) Carbon Dioxide Level 25 mmol/L (21-32) Anion Gap 10 (6-14) Blood Urea Nitrogen 5 mg/dL (8-26) L Creatinine 0.6 mg/dL (0.7-1.3) L Estimated GFR (Cockcroft-Gault) 200.3 BUN/Creatinine Ratio 8 (6-20) Glucose Level 112 mg/dL (70-99) H Calcium Level 8.9 mg/dL (8.5-10.1) Magnesium Level 2.0 mg/dL (1.8-2.4) Total Bilirubin 2.3 mg/dL (0.2-1.0) H Aspartate Amino Transferase (AST) 53 U/L (15-37) H Alanine Aminotransferase (ALT) 40 U/L (16-63) Alkaline Phosphatase 116 U/L (46-116) Troponin I High Sensitivity 5 ng/L (4-75) Total Protein 8.2 g/dL (6.4-8.2) Albumin 4.4 g/dL (3.4-5.0) Albumin/Globulin Ratio 1.2 (1.0-1.7) Lipase 33 U/L (73-393) L Influenza Type A Antigen Negative (NEGATIVE) Influenza Type B Antigen Negative (NEGATIVE) SARS-CoV-2 Antigen (Rapid) Negative (NEGATIVE) Laboratory Tests 10/20/21 11:00 Laboratory Tests 10/20/21 11:00 EKG EKG [] Radiology/Procedures Radiology/Procedures [] Course & Med Decision Making Course & Med Decision Making Pertinent Labs and Imaging studies reviewed. (See chart for details) [] This 26-year-old male 6 disease. Presents with pain. Labs demonstrate hemoglobin 9.6, reticulocyte count of about 5 and half percent. Patient was given IV fluids, a liter of normal saline as well as a total of 4 mg of Dilaudid IV push. Eventually get his symptoms under control. We will give him a total of 10 [place] tablets to be used with his outpatient meds. He is to return to the emergency department should symptoms become worse or other concerns arise, otherwise follow-up with his primary care physician, he is stable for discharge at this time. Dragon Disclaimer Dragon Disclaimer This electronic medical record was generated, in whole or in part, using a voice recognition dictation system. Departure Departure Impression: Primary Impression: Sickle cell pain crisis Disposition: 01 HOME / SELF CARE / HOMELESS Condition: STABLE Referrals: UNKNOWN PCP NAME (PCP) Patient Instructions: Sickle Cell Pain Crisis Scripts Hydrocodone Bit/Acetaminophen (HYDROCODONE-APAP 5-325 ) 1 Tab Tablet 1 TAB PO PRN Q6HRS PRN for PAIN, #10 TAB 0 Refills Prov: VALERIE CARTWRIGHT MD 10/20/21 VALERIE CARTWRIGHT MD Oct 20, 2021 13:09
== END 2021-10-20 13:51 | disposition home or self-care (01) ==
LOC: ER 10:00
DX: D57.00 Hb-SS disease with crisis, unspecified (principal); Z20.822 Contact with and (suspected) exposure to COVID-19; Z88.5 Allergy status to narcotic agent
CPT/HCPCS: 36415; 80053; 81001; 83690; 83735; 84484; 85007; 85025; 85045; 87428; 96361; 96374; 96375; 96376; 99284; J1170; J2405; J7030

== ENCOUNTER 2021-11-03 08:58 | Inpatient (IN) | payer BC, MEDICARE ==
[~2021-11-03] VITALS: Ht 180.3 cm; Wt 90.4 kg
[2021-11-03] MEDS ORDERED: IV NORMAL SALINE 1000ML BAG 1,000 ML IV ONE (10:45)
[2021-11-03] MEDS ORDERED: HYDROmorphone 2 MG/ML INJ. IVP ONE ×3 (10:45→21:15)
[2021-11-03 11:06] LABS: BASO # 0.1 x10^3/uL (0.0-0.2); BASO % 1 % (0-3); EOS # 0.1 x10^3/uL (0.0-0.7); EOS % 2 % (0-3); HEMATOCRIT 30.5 % (39.0-53.0); HEMOGLOBIN 10.6 g/dL (13.0-17.5); LYMPH % 24 % (24-48); MEAN CORPUSCULAR HEMOGLOBIN 29 pg (25-35); MEAN CORPUSCULAR HGB CONC 35 g/dL (31-37); MEAN CORPUSCULAR VOLUME 84 fL (79-100); MONO # 1.1 x10^3/uL (0.0-1.1); MONO % 13 % (0-9); NEUT # 5.2 x10^3/uL (1.8-7.7); NEUT % 61 % (31-73); PLATELET COUNT 332 x10^3/uL (140-400); RED BLOOD COUNT 3.64 x10^6/uL (4.30-5.70); RED CELL DISTRIBUTION WIDTH 24.6 % (11.5-14.5); WHITE BLOOD COUNT 8.5 x10^3/uL (4.0-11.0)
[2021-11-03 11:16] LABS: CALCIUM 9.1 mg/dL (8.5-10.1); CREATININE 0.7 mg/dL (0.7-1.3); GFR 167.6; POTASSIUM 4.8 mmol/L (3.5-5.1)
[2021-11-03] MEDS ORDERED: ONDANSETRON PF 4 MG/2 ML VIAL. IVP PRN (12:30)
[2021-11-03 12:41] LABS: ANISOCYTOSIS PRESENT; PLT ESTIMATE ADEQUATE (ADEQUATE); POIKILOCYTOSIS PRESENT; POLYCHROMASIA PRESENT
[2021-11-03 12:42] LABS: SICKLE CELLS PRESENT; TARGET CELLS PRESENT
[2021-11-03] MEDS ORDERED: fentaNYL PF VIAL 100 MCG/2 ML VIAL IVP ONE (13:15)
--- NOTE | 2021-11-03 14:51 | NUR ---
Pt arrived on unit at approx 1440 by bed via ED staff. Pt screaming, crying, moaning. Rates pain 06/01. Pt given fresh ice water. POC/orders reviewed. Will assume care. Addendum: 11/03/21 at 1505 by LUIS ANTONIO ROBLEDO RN Pt instructed to focus on taking deep breaths in through the nose and out through the mouth. Pt performs breathing techniques as instructed.
[2021-11-03 15:00] VITALS: BP 128/69
--- NOTE | 2021-11-03 15:02 | NUR ---
This RN called and spoke with Dr. Magaña in regards to pain medication order. Orders received from Dr. Magaña to change frequency of current Dilaudid order to Q2 hrs PRN. Refer to EMAR for details.
[2021-11-03] MEDS: HYDROmorphone 2 MG/ML INJ. IVP PRN ×4 (15:12→22:24)
--- NOTE | 2021-11-03 16:23 | PHYS DOC ---
Past Medical History Past Medical History: Sickle Cell Disease, Other Additional Past Medical Histor: SICKLE CELL Past Surgical History: No Surgical History Additional Past Surgical Histo: R KNEE SX Smoking Status: Current Some Day Smoker Alcohol Use: None Drug Use: None, Marijuana General Adult EDM: Chief Complaint: PAIN CONTROL HPI: HPI: Patient is a 26-year-old male that presents today with sickle cell crisis. Patient states that he was in normal health as of yesterday and this morning he started feeling lower extremity pain which is common for him when he has a sickle cell crisis, he presents today because he does not have any opioid medication at home and he says that the clinic for which she is seeing chronically for his sickle cell disease is unable to see him today. Patient denies chest pain or shortness of breath or fever and chills. Review of Systems: Review of Systems: Constitutional: Denies fever or chills. [] Eyes: Denies change in visual acuity. [] HENT: Denies nasal congestion or sore throat. [] Respiratory: Denies cough or shortness of breath. [] Cardiovascular: Denies chest pain or edema. [] GI: Denies abdominal pain, nausea, vomiting, bloody stools or diarrhea. [] : Denies dysuria. [] Musculoskeletal: Lower extremity pain Integument: Denies rash. [] Neurologic: Denies headache, focal weakness or sensory changes. [] Endocrine: Denies polyuria or polydipsia. [] Lymphatic: Denies swollen glands. [] Psychiatric: Denies depression or anxiety. [] Heart Score: C/O Chest Pain: No Risk Factors: Risk Factors: DM, Current or recent (<one month) smoker, HTN, HLP, family history of CAD, obesity. Risk Scores: Score 0 - 3: 2.5% MACE over next 6 weeks - Discharge Home Score 4 - 6: 20.3% MACE over next 6 weeks - Admit for Clinical Observation Score 7 - 10: 72.7% MACE over next 6 weeks - Early Invasive Strategies Current Medications: Current Medications Medications (Trade) Dose Ordered Sig/Glenis Start Time Stop Time Status Last Admin Dose Admin Hydromorphone HCl (Dilaudid) 1 mg 1X ONCE 11/03/21 10:45 11/03/21 10:46 DC 11/03/21 11:11 1 MG Sodium Chloride 1,000 ml @ 999 mls/hr 1X ONCE 11/03/21 10:45 11/03/21 11:45 DC 11/03/21 11:10 999 MLS/HR Allergies: Allergies: Allergies Coded Allergies Type Severity Reaction Last Updated Verified morphine Allergy Severe swelling, hives 10/20/21 Yes Physical Exam: PE: Constitutional: Well developed, well nourished, mild distress, non-toxic appearance. [] HENT: Normocephalic, atraumatic, bilateral external ears normal, oropharynx moist, no oral exudates, nose normal. [] Eyes: PERRLA, EOMI, conjunctiva normal, no discharge. [] Neck: Normal range of motion, no tenderness, supple, no stridor. [] Cardiovascular:Heart rate regular rhythm, no murmur [] Lungs & Thorax: Bilateral breath sounds clear to auscultation [] Abdomen: Bowel sounds normal, soft, no tenderness, no masses, no pulsatile masses. [] Skin: Warm, dry, no erythema, no rash. [] Back: No tenderness, no CVA tenderness. [] Extremities: No tenderness, no cyanosis, no clubbing, ROM intact, no edema, peripheral pulses 2+, sensory is intact distal to the pain in the legs. Neurologic: Alert and oriented X 3, normal motor function, normal sensory function, no focal deficits noted. [] Psychologic: Affect normal, judgement normal, mood anxious. [] Current Patient Data: Labs: Laboratory Tests Test 11/03/21 10:50 11/03/21 10:55 Sodium Level 141 mmol/L (136-145) Potassium Level 4.8 mmol/L (3.5-5.1) Chloride Level 106 mmol/L (98-107) Carbon Dioxide Level 24 mmol/L (21-32) Anion Gap 11 (6-14) Blood Urea Nitrogen 5 mg/dL (8-26) L Creatinine 0.7 mg/dL (0.7-1.3) Estimated GFR (Cockcroft-Gault) 167.6 Glucose Level 109 mg/dL (70-99) H Calcium Level 9.1 mg/dL (8.5-10.1) White Blood Count 8.5 x10^3/uL (4.0-11.0) Red Blood Count 3.60 x10^6/uL (4.30-5.70) L Hemoglobin 10.6 g/dL (13.0-17.5) L Hematocrit 30.5 % (39.0-53.0) L Mean Corpuscular Volume 84 fL (79-100) Mean Corpuscular Hemoglobin 29 pg (25-35) Mean Corpuscular Hemoglobin Concent 35 g/dL (31-37) Red Cell Distribution Width 24.6 % (11.5-14.5) H Platelet Count 332 x10^3/uL (140-400) Neutrophils (%) (Auto) 61 % (31-73) Lymphocytes (%) (Auto) 24 % (24-48) Monocytes (%) (Auto) 13 % (0-9) H Eosinophils (%) (Auto) 2 % (0-3) Basophils (%) (Auto) 1 % (0-3) Neutrophils # (Auto) 5.2 x10^3/uL (1.8-7.7) Lymphocytes # (Auto) 2.0 x10^3/uL (1.0-4.8) Monocytes # (Auto) 1.1 x10^3/uL (0.0-1.1) Eosinophils # (Auto) 0.1 x10^3/uL (0.0-0.7) Basophils # (Auto) 0.1 x10^3/uL (0.0-0.2) Platelet Estimate Adequate (ADEQUATE) Large Platelets Present Giant Platelets Present Polychromasia Present Poikilocytosis Present Anisocytosis Present Sickle Cells Present Target Cells Present Absolute Reticulocyte Count 0.120 x10^6/uL (0.020-0.120) Percent Reticulocyte Count 3.3 % (0.5-2.3) H Immature Reticulocyte Fraction 0.74 (0.20-0.60) H Laboratory Tests 11/03/21 10:55 Laboratory Tests 11/03/21 10:50 Vital Signs: Vital Signs Date Time Temp Pulse Resp B/P (MAP) Pulse Ox O2 Delivery O2 Flow Rate FiO2 11/03/21 15:24 Nasal Cannula 2.0 11/03/21 15:12 Nasal Cannula 2.0 11/03/21 15:00 98.6 87 22 128/69 (88) 95 Nasal Cannula 2.0 98.6 11/03/21 13:22 18 11/03/21 12:30 16 3/14/22 12:00 64 20 130/71 (90) 98 Room Air 11/03/21 11:45 60 20 125/78 (94) 97 Room Air 11/03/21 11:11 18 11/03/21 09:40 98.3 69 18 126/69 (88) 98 Room Air 98.3 Vital Signs Date Time Temp Pulse Resp B/P (MAP) Pulse Ox O2 Delivery O2 Flow Rate FiO2 11/03/21 15:24 Nasal Cannula 2.0 11/03/21 15:00 98.6 87 22 128/69 (88) 95 98.6 EKG: EKG: [] Radiology/Procedures: Radiology/Procedures: [] Course & Med Decision Making: Course & Med Decision Making Pertinent Labs and Imaging studies reviewed. (See chart for details) 1220 patient is writhing in the bed complaining of increased pain, he states the pain medication that we have given him did not help at all, I did ask if the patient would like to be admitted for further pain control if he said yes, patient will be given a second dose of Dilaudid here in the emergency department and I will contact Dr. Rodgers with the hospitalist group for admitting this patient for further pain management. [address] Magaña with the hospitalist group and he is agreeable to admitting this patient for pain management for his sickle cell crisis. Candelario Disclaimer: Candelario Disclaimer: This electronic medical record was generated, in whole or in part, using a voice recognition dictation system. Departure Departure Impression: Primary Impression: Sickle cell pain crisis Disposition: ADMITTED INPATIENT Admitting Physician: CAROL Condition: STABLE Referrals: UNKNOWN PCP NAME (PCP) ADRY WILSON APRN Nov 03, 2021 16:23
[2021-11-03] MEDS ORDERED: HYDROmorphone 2 MG/ML INJ. IVP PRN (16:30)
--- NOTE | 2021-11-03 18:17 | HP ---
DATE OF SERVICE: 11/03/2021 ADMIT DATE: 11/03/2021 CHIEF COMPLAINT: Diffuse body aches. HISTORY OF PRESENT ILLNESS: The patient is a pleasant 26-year-old male with sickle cell disease. Once again, he presents with a sickle cell crisis. I discussed the case with ER physician. The patient has a 10/10 pain, it is intractable. We are going to admit the patient and give him sickle cell protocol. PAST MEDICAL HISTORY: Sickle cell crisis. ALLERGIES: MORPHINE. FAMILY HISTORY: Sickle cell disease. SOCIAL HISTORY: He does not drink, smoke or take drugs. MEDICATIONS: Reviewed. Please refer to the MRAD. REVIEW OF SYSTEMS: GENERAL: No history of weight change, weakness or fevers. SKIN: No bruising, hair changes or rashes. EYES: No blurred, double or loss of vision. NOSE AND THROAT: No history of nosebleeds, hoarseness or sore throat. HEART: No history of palpitations, chest pain or shortness of breath on exertion. LUNGS: Denies cough, hemoptysis, wheezing or shortness of breath. GASTROINTESTINAL: Denies changes in appetite, nausea, vomiting, diarrhea or constipation. GENITOURINARY: No history of frequency, urgency, hesitancy or nocturia. NEUROLOGIC: Denies history of numbness, tingling, tremor or weakness. PSYCHIATRIC: No history of panic, anxiety or depression. ENDOCRINE: No history of heat or cold intolerance, polyuria or polydipsia. MUSCULOSKELETAL: He complains of diffuse pain. PHYSICAL EXAMINATION: VITALS: Within normal limits and are stable. GENERAL: He is in obvious pain. HEENT: Normal cephalic atraumatic, external auditory canals are patent. EYES: Extraocular muscles are intact, pupils are equally round and reactive to light and accommodation. MUSCULOSKELETAL: Well developed, well nourished, good range of motion. ENDOCRINE: No thyromegaly was palpated. LYMPHATICS: No cervical chain or axillary nodes were noted. HEMATOPOIETIC: No bruising. NECK: Supple, no JVD, no thyromegaly was noted. LUNGS: Clear to auscultation in all lung vargas without rhonchi or wheezing. HEART: RRR, S1, S2 present. Peripheral pulses intact, no obvious murmurs were noted. ABDOMEN: Soft, nontender. Positive bowel sounds no organomegaly, normal bowel sounds. EXTREMITIES: Without any cyanosis, clubbing, or edema. Pedal pulses intact, Homans sign is negative. NEUROLOGIC: Normal speech, normal tone. A and O x 3, moves all extremities, no obvious focal deficits. PSYCHIATRIC: Normal affect, normal mood. Stable. SKIN: No ulcerations or rashes, good skin turgor, no jaundice. VASCULAR: Good capillary refill, neurovascular bundle appears to be intact. LABORATORY DATA: White count 8, hemoglobin 10, platelets 332, reticulocyte count is 3.3. ASSESSMENT AND PLAN: Sickle cell crisis. The patient will be admitted. We will give him IV fluids, p.r.n. pain medications, vitamins, oxygen. Home medications. Deep vein thrombosis prophylaxis. Full code. IMANI DR: Donny TID: [id number]
[2021-11-03 19:00] VITALS: BP 127/72
[2021-11-03] MEDS: oxyCODONE IR 5 MG TABLET PO PRN (22:28)
[2021-11-03 23:00] VITALS: BP 132/78
[2021-11-04] MEDS: HYDROmorphone 2 MG/ML INJ. IVP PRN ×7 (00:30→12:38)
[2021-11-04] MEDS: IV NORMAL SALINE 1000ML BAG 1,000 ML IV PRN ×3 (00:33→23:44)
[2021-11-04 03:20] VITALS: BP 140/56
[2021-11-04 07:00] VITALS: BP 123/55
--- NOTE | 2021-11-04 07:38 | NUR ---
Patient has been crying many times through out the night, his pain 05/02, dilaudid changed from 2 to 3mg Q2hrs prn, along with an extra 3mg dose and his oxycodone 15mg IR, he was asked if his 0330 dose was helpful, he said it did not, when asked what was going on, he said "You didn't help me get straightened up in the bed". This process description writer told him that he can move himself, as he has been All Over The Bed...head at the bottom of the bed, with his feet up at the head of the bed, straight up!! Frequent movements in the bed, on his own.
[2021-11-04] MEDS: MULTIVITAMIN with MINERAL TABLET. PO SCH (09:00)
[2021-11-04] MEDS ORDERED: NALOXONE 0.4 MG/ML VIAL. IV PRN (14:00)
[2021-11-04] MEDS: IV NORMAL SALINE 1000ML BAG 1,000 ML IV SCH (14:00)
--- NOTE | 2021-11-04 14:08 | PDOC ---
[facility] PROGRESS NOTE Date of Service DOS: DATE: 11/04/21 TIME: 14:04 Chief Complaint Chief Complaint Sickle cell pain crisis History of Present Illness History of Present Illness The patient is a pleasant 26-year-old male with sickle cell disease. Once again, he presents with a sickle cell crisis. I discussed the case with ER physician. The patient has a 10/10 pain, it is intractable. We are going to admit the patient and give him sickle cell protocol. 11/04: Patient seen and evaluated bedside. He is very tearful and appears to be in exquisite pain. He reports pain in his bilateral legs and back. He is very opioid tolerant; will initiate fentanyl FOOD TECHNOLOGIST pump. Discussed with pharmacy. Vitals/I&O Vitals/I&O: Vital Signs Date Time Temp Pulse Resp B/P (MAP) Pulse Ox O2 Delivery O2 Flow Rate FiO2 11/04/21 12:38 Nasal Cannula 2.0 11/04/21 07:00 97.8 85 22 123/55 (77) 94 97.8 I & O 11/03/21 11/03/21 11/04/21 15:00 23:00 07:00 Intake Total 1000 ml Output Total 1900 ml Balance 1000 ml -1900 ml Physical Exam General: Alert, Cooperative, severe distress Heart: Other (Tachycardic) Lungs: Clear Abdomen: No masses Extremities: No clubbing, No cyanosis Skin: No rashes, No breakdown Labs Labs: Laboratory Tests Test 11/04/21 07:00 Red Blood Count 3.32 x10^6/uL (4.30-5.70) Absolute Reticulocyte Count 0.082 x10^6/uL (0.020-0.120) Percent Reticulocyte Count 2.5 % (0.5-2.3) Immature Reticulocyte Fraction 0.68 (0.20-0.60) Assessment and Plan Assessmemt and Plan Problems Medical Problems: (1) Sickle cell pain crisis Status: Acute Comment Review of Relevant I have reviewed the following items misty (where applicable) has been applied. Medications: Current Medications Medications (Trade) Dose Ordered Sig/Glenis Route PRN Reason Start Time Stop Time Status Last Admin Dose Admin Hydromorphone HCl (Dilaudid) 2 mg PRN Q2HRS PRN IVP MODERATE TO SEVERE PAIN 11/03/21 15:15 11/04/21 00:14 DC 11/03/21 22:24 Hydromorphone HCl (Dilaudid) 3 mg 1X ONCE IVP 11/03/21 21:15 11/03/21 21:16 DC 11/03/21 20:57 Oxycodone HCl (Roxicodone) 15 mg PRN Q6HRS PRN PO PAIN 11/03/21 20:45 11/03/21 22:28 Hydromorphone HCl (Dilaudid) 3 mg PRN Q2HRS PRN IVP MODERATE TO SEVERE PAIN 11/04/21 00:24 11/04/21 12:38 Justifications for Admission Other Justification Concern for pulmonary embolism STEPHANY DEAN MD Nov 04, 2021 14:08
--- NOTE | 2021-11-04 14:30 | NUR ---
PERSONAL DEVELOPMENT MENTOR started. Rating pain at 10 on pain scale. Moaning and crying. Cont. monitor.
[2021-11-04 15:00] VITALS: BP 110/62
--- NOTE | 2021-11-04 15:04 | NUR ---
SS following for discharge planning. SS reviewed pt chart and discussed with pt RN. Pt is from home and is currently requiring oxygen at two liters nasal canula. Dr. Coulter consulted. SS will continue to follow for discharge planning.
--- NOTE | 2021-11-04 15:07 | NUR ---
Pt looking at cell phone. Rating pain at "8" at this time. Cont. monitor.
[2021-11-04 19:00] VITALS: BP 131/77
[2021-11-04] MEDS: SENNOSIDES/DOCUSATE 8.6/50MG TABLET. PO SCH (20:40)
[2021-11-04] MEDS: oxyCODONE IR 5 MG TABLET PO PRN (20:40)
[2021-11-04 23:00] VITALS: BP 136/70
[2021-11-05 02:38] VITALS: BP 149/58
[2021-11-05] MEDS: oxyCODONE IR 5 MG TABLET PO PRN (02:44)
[2021-11-05 07:00] VITALS: BP 136/71
--- NOTE | 2021-11-05 07:54 | PDOC ---
[facility] [facility] PROGRESS NOTE Date of Service DOS: DATE: 11/05/21 TIME: 07:48 Chief Complaint Chief Complaint Sickle cell pain crisis History of Present Illness History of Present Illness The patient is a pleasant 26-year-old male with sickle cell disease. Once again, he presents with a sickle cell crisis. I discussed the case with ER physician. The patient has a 10/10 pain, it is intractable. We are going to admit the patient and give him sickle cell protocol. 11/05: Patient evaluated bedside. He remains in exquisite pain, mostly in his bilateral knees. Apparently refused labs this morning. He denies significant shortness of breath. Patient states he is no longer on hydroxyurea. Spoke with pharmacy and they do not carry his current sickle cell, Endari. 11/04: Patient seen and evaluated bedside. He is very tearful and appears to be in exquisite pain. He reports pain in his bilateral legs and back. He is very opioid tolerant; will initiate fentanyl MINER pump. Discussed with pharmacy. Vitals/I&O Vitals/I&O: Vital Signs Date Time Temp Pulse Resp B/P (MAP) Pulse Ox O2 Delivery O2 Flow Rate FiO2 11/05/21 02:38 99.4 86 20 149/58 (88) 92 Nasal Cannula 2.0 99.4 I & O 11/04/21 11/04/21 11/05/21 15:00 23:00 07:00 Intake Total 480 ml 528 ml 1328 ml Output Total 1500 ml 900 ml 1875 ml Balance -1020 ml -372 ml -547 ml Physical Exam General: Alert, Cooperative, severe distress Heart: Other (Tachycardic) Lungs: Clear Abdomen: No masses Extremities: No clubbing, No cyanosis Skin: No rashes, No breakdown Assessment and Plan Assessmemt and Plan Problems Medical Problems: (1) Sickle cell pain crisis Status: Acute Comment Review of Relevant I have reviewed the following items misty (where applicable) has been applied. Medications: Current Medications Medications (Trade) Dose Ordered Sig/Glenis Route PRN Reason Start Time Stop Time Status Last Admin Dose Admin Fentanyl Citrate 30 ml @ 0 mls/hr CONT PRN PRN IV PER PROTOCOL 11/04/21 14:00 11/05/21 02:10 Senna/Docusate Sodium (Senna Plus) 1 tab BID PO 11/04/21 21:00 11/04/21 20:40 Justifications for Admission Other Justification Concern for pulmonary embolism STEPHANY DEAN MD Nov 05, 2021 07:54
[2021-11-05 08:18] LABS: HEMATOCRIT 26.6 % (39.0-53.0); HEMOGLOBIN 9.3 g/dL (13.0-17.5); RED BLOOD COUNT 3.24 x10^6/uL (4.30-5.70); RED CELL DISTRIBUTION WIDTH 24.9 % (11.5-14.5); WHITE BLOOD COUNT 16.8 x10^3/uL (4.0-11.0)
[2021-11-05] MEDS: MULTIVITAMIN with MINERAL TABLET. PO SCH (08:18)
[2021-11-05] MEDS: IV NORMAL SALINE 1000ML BAG 1,000 ML IV SCH ×2 (08:18→16:04)
[2021-11-05] MEDS: SENNOSIDES/DOCUSATE 8.6/50MG TABLET. PO SCH ×2 (08:18→21:00)
[2021-11-05] MEDS ORDERED: HYDROXYUREA 500 MG CAPSULE PO SCH (09:00)
[2021-11-05 11:00] VITALS: BP 154/87
--- NOTE | 2021-11-05 11:27 | NUR ---
SS following up with discharge planning. SS reviewed pt chart and discussed with pt RN. Pt is currently requiring oxygen at two liters nasal canula. DECONTAMINATOR in place. Not ready. SS will continue to follow for discharge planning.
[2021-11-05 15:00] VITALS: BP 145/95
[2021-11-05 19:00] VITALS: BP 146/86
--- NOTE | 2021-11-05 22:28 | NUR ---
RN attempted to get pt to talk to her without crying for a minute as his speech is incomprehensible when he is crying. Pt started yelling at RN that "you don't understand - I am in pain." RN explained she did understand but pt continued to escalate and started yelling. RN stated that would try to get settings changed but pt kept speaking over. Pt stated that family therapist would cry if that had that illness. RN stated family not like that and that it was irrelevant as we don't have it. 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 Pt kept yelling and then stated that RN was being racist. RN stated that she was not being racist - pt continued to yell. RN stated would come back when pt could calm down. RN did not raise voice and spoke in a calm manner. Will attempt to change LOBSTER MAN setting with dr to try and get some pain relief for pt. Addendum: 11/05/21 at 2334 by SHANI STODDARD RN RN At 2236 Dr Rea called to make aware of pt lack of pain control. 2309: Dr Rea returned call and changes ordered for LOBSTER MAN. 2315: Pt found to be recording conversations while techs in room. Techs came to RN and informed RN that pt was doing that. Broker Assistant made aware and this RN went into room to change LOBSTER MAN settings and explain the changes to the pt. RN also instructed pt that it was illegal to record things in the hospital. Pt reported that he had stopped and showed RN the phone. Changes to LOBSTER MAN and fluid rates explained to pt. Will continue to monitor pt status closely.
[2021-11-05] MEDS: IV NORMAL SALINE 1000ML BAG 1,000 ML IV PRN (23:16)
[2021-11-05 23:40] VITALS: BP 155/102
[2021-11-06] MEDS: IV NORMAL SALINE 1000ML BAG 1,000 ML IV PRN ×3 (03:04→19:03)
[2021-11-06 03:50] VITALS: BP 143/85
[2021-11-06 04:55] LABS: BASO % 0 % (0-3); EOS % 0 % (0-3); HEMATOCRIT 24.2 % (39.0-53.0); HEMOGLOBIN 8.5 g/dL (13.0-17.5); LYMPH # 1.7 x10^3/uL (1.0-4.8); LYMPH % 11 % (24-48); MEAN CORPUSCULAR HEMOGLOBIN 29 pg (25-35); MEAN CORPUSCULAR HGB CONC 35 g/dL (31-37); MEAN CORPUSCULAR VOLUME 82 fL (79-100); MONO # 2.5 x10^3/uL (0.0-1.1); MONO % 16 % (0-9); NEUT # 11.1 x10^3/uL (1.8-7.7); NEUT % 73 % (31-73); PLATELET COUNT 175 x10^3/uL (140-400); RED BLOOD COUNT 2.97 x10^6/uL (4.30-5.70); RED CELL DISTRIBUTION WIDTH 23.9 % (11.5-14.5); WHITE BLOOD COUNT 15.4 x10^3/uL (4.0-11.0)
[2021-11-06 07:00] VITALS: BP 153/83
[2021-11-06] MEDS: MULTIVITAMIN with MINERAL TABLET. PO SCH (09:43)
[2021-11-06] MEDS: SENNOSIDES/DOCUSATE 8.6/50MG TABLET. PO SCH ×2 (09:43→20:52)
[2021-11-06 11:00] VITALS: BP 146/82
--- NOTE | 2021-11-06 11:12 | PDOC ---
[facility] PROGRESS NOTE Date of Service DOS: DATE: 11/06/21 TIME: 11:03 Chief Complaint Chief Complaint Sickle cell pain crisis History of Present Illness History of Present Illness The patient is a pleasant 26-year-old male with sickle cell disease. Once again, he presents with a sickle cell crisis. I discussed the case with ER physician. The patient has a 10/10 pain, it is intractable. We are going to admit the patient and give him sickle cell protocol. 11/06/2021 No acute events overnight. Patient seen examined bedside. Still complaining of whole whole body pain near his joints. Rates scale of 8 out of 10. Hemoglobin 8.6. Will transfuse 1 unit PRBC. Saturating 91% on 2 L nasal cannula. AF and VSS. Still on fentanyl RIBBON INKER. 11/05: Patient evaluated bedside. He remains in exquisite pain, mostly in his bilateral knees. Apparently refused labs this morning. He denies significant shortness of breath. Patient states he is no longer on hydroxyurea. Spoke with pharmacy and they do not carry his current sickle cell, Armando. 11/04: Patient seen and evaluated bedside. He is very tearful and appears to be in exquisite pain. He reports pain in his bilateral legs and back. He is very opioid tolerant; will initiate fentanyl RIBBON INKER pump. Discussed with pharmacy. Vitals/I&O Vitals/I&O: Vital Signs Date Time Temp Pulse Resp B/P (MAP) Pulse Ox O2 Delivery O2 Flow Rate FiO2 11/06/21 08:00 Nasal Cannula 2.0 11/06/21 07:00 97.5 103 20 153/83 (106) 91 97.5 I & O 11/05/21 11/05/21 11/06/21 15:00 23:00 07:00 Intake Total 0 ml 1360 ml 750 ml Output Total 1400 ml 2425 ml 2100 ml Balance -1400 ml -1065 ml -1350 ml Physical Exam General: Alert, Cooperative, severe distress Heart: Other (Tachycardic) Lungs: Clear Abdomen: No masses Extremities: No clubbing, No cyanosis Skin: No rashes, No breakdown Labs Labs: Laboratory Tests Test 11/06/21 03:35 White Blood Count 15.4 x10^3/uL (4.0-11.0) Red Blood Count 2.97 x10^6/uL (4.30-5.70) Hemoglobin 8.5 g/dL (13.0-17.5) Hematocrit 24.2 % (39.0-53.0) Mean Corpuscular Volume 82 fL (79-100) Mean Corpuscular Hemoglobin 29 pg (25-35) Mean Corpuscular Hemoglobin Concent 35 g/dL (31-37) Red Cell Distribution Width 23.9 % (11.5-14.5) Platelet Count 175 x10^3/uL (140-400) Neutrophils (%) (Auto) 73 % (31-73) Lymphocytes (%) (Auto) 11 % (24-48) Monocytes (%) (Auto) 16 % (0-9) Eosinophils (%) (Auto) 0 % (0-3) Basophils (%) (Auto) 0 % (0-3) Neutrophils # (Auto) 11.1 x10^3/uL (1.8-7.7) Lymphocytes # (Auto) 1.7 x10^3/uL (1.0-4.8) Monocytes # (Auto) 2.5 x10^3/uL (0.0-1.1) Eosinophils # (Auto) 0.0 x10^3/uL (0.0-0.7) Basophils # (Auto) 0.0 x10^3/uL (0.0-0.2) Absolute Reticulocyte Count 0.130 x10^6/uL (0.020-0.120) Percent Reticulocyte Count 4.2 % (0.5-2.3) Immature Reticulocyte Fraction 0.69 (0.20-0.60) Assessment and Plan Assessmemt and Plan Problems Medical Problems: (1) Sickle cell pain crisis Status: Acute Comment Review of Relevant I have reviewed the following items misty (where applicable) has been applied. Medications: Current Medications Medications (Trade) Dose Ordered Sig/Glenis Route PRN Reason Start Time Stop Time Status Last Admin Dose Admin Fentanyl Citrate 30 ml @ 0 mls/hr CONT PRN PRN IV PER PROTOCOL 11/05/21 23:15 11/06/21 03:56 DC 11/05/21 23:16 Justifications for Admission Other Justification Concern for pulmonary embolism JUDY MAZARIEGOS MD Nov 06, 2021 11:12
[2021-11-06] MEDS ORDERED: diphenhydrAMINE HCL 25 MG CAPSULE PO PRN (11:15)
[2021-11-06] MEDS ORDERED: ACETAMINOPHEN 325 MG TABLET. PO PRN (11:15)
[2021-11-06 12:01] LABS: CALCIUM 8.4 mg/dL (8.5-10.1); CREATININE 0.6 mg/dL (0.7-1.3); GFR 200.3; POTASSIUM 3.6 mmol/L (3.5-5.1)
[2021-11-06 15:00] VITALS: BP 148/79
--- NOTE | 2021-11-06 16:45 | NUR ---
Dr. Rea ordered a unit of PRBC's to be infused. When RN went to take consent form patient refused and said that he "didnt want a blood transfusion and not wanting all that extra iron" and his PCP has him on a "new medication and he will be fine once he gets through this crisis". Dr. Rea notified and will talk to him about it tomorrow. Blood bank notified and said blood will be good for 3 days.
[2021-11-06 19:00] VITALS: BP 135/88
[2021-11-06 23:00] VITALS: BP 133/80
[2021-11-07] MEDS: IV NORMAL SALINE 1000ML BAG 1,000 ML IV PRN (00:11)
[2021-11-07 03:00] VITALS: BP 137/73
[2021-11-07] MEDS ORDERED: PIP/TAZO PER PHARMACY MC PRN (04:15)
[2021-11-07] MEDS: IV NORMAL SALINE 1000ML BAG 1,000 ML IV SCH ×5 (05:42→20:00)
--- NOTE | 2021-11-07 06:33 | NUR ---
Fabricio not hung at 0500 d/t stat blood cultures not drawn. Call x2 to lab with no answer. Will pass on to day shift.
[2021-11-07 07:00] VITALS: BP 141/82
[2021-11-07 07:25] LABS: HEMOGLOBIN 8.6 g/dL (13.0-17.5); RED BLOOD COUNT 3.05 x10^6/uL (4.30-5.70); RED CELL DISTRIBUTION WIDTH 24.9 % (11.5-14.5); WHITE BLOOD COUNT 13.4 x10^3/uL (4.0-11.0)
[2021-11-07] MEDS: PIPERACILLIN/TAZOBACTAM 3.375 GM in IV NORMAL SALINE 50ML 50 ML IV SCH ×3 (08:29→18:03)
[2021-11-07] MEDS: MULTIVITAMIN with MINERAL TABLET. PO SCH (08:32)
[2021-11-07] MEDS: SENNOSIDES/DOCUSATE 8.6/50MG TABLET. PO SCH ×2 (08:32→20:43)
--- NOTE | 2021-11-07 10:14 | PDOC ---
[facility] PROGRESS NOTE Date of Service DOS: DATE: 11/07/21 TIME: 10:12 Chief Complaint Chief Complaint Sickle cell pain crisis History of Present Illness History of Present Illness The patient is a pleasant 26-year-old male with sickle cell disease. Once again, he presents with a sickle cell crisis. I discussed the case with ER physician. The patient has a 10/10 pain, it is intractable. We are going to admit the patient and give him sickle cell protocol. 11/07/2021 No acute events overnight. Patient seen examined bedside. Fever of 101.5 last night. Blood cultures drawn and IV Zosyn started. Patient does complain of pain out of 8 out of 10. Mainly in his back and right lower extremity. Tender upon palpation. Will obtain DVT ultrasound of the right lower extremity to rule out DVT. I have adjusted his BRAND COORDINATOR settings for continuous fentanyl at 100 MCG per hour and demand of 15 MCG every 20 minutes. Patient saturating 91% on 2 L nasal cannula. Not short of breath. No dyspnea upon exertion. Instructed for patient to sit up in a chair. MiraLAX ordered for constipation. Patient's chart, labs, images were reviewed and discussed with RN 11/06/2021 No acute events overnight. Patient seen examined bedside. Still complaining of whole whole body pain near his joints. Rates scale of 8 out of 10. Hemoglobin 8.6. Will transfuse 1 unit PRBC. Saturating 91% on 2 L nasal cannula. AF and VSS. Still on fentanyl BRAND COORDINATOR. 11/05: Patient evaluated bedside. He remains in exquisite pain, mostly in his bilateral knees. Apparently refused labs this morning. He denies significant shortness of breath. Patient states he is no longer on hydroxyurea. Spoke with pharmacy and they do not carry his current sickle cell, Armando. 11/04: Patient seen and evaluated bedside. He is very tearful and appears to be in exquisite pain. He reports pain in his bilateral legs and back. He is very opioid tolerant; will initiate fentanyl BRAND COORDINATOR pump. Discussed with pharmacy. Vitals/I&O Vitals/I&O: Vital Signs Date Time Temp Pulse Resp B/P (MAP) Pulse Ox O2 Delivery O2 Flow Rate FiO2 11/07/21 08:29 Nasal Cannula 2.0 11/07/21 07:39 91 11/07/21 07:00 98.3 101 22 141/82 (101) 98.3 I & O 11/06/21 11/06/21 11/07/21 15:00 23:00 07:00 Intake Total 1600 ml 400 ml Output Total 2300 ml 1950 ml 2850 ml Balance -2300 ml -350 ml -2450 ml Physical Exam General: Alert, Cooperative, severe distress Heart: Other (Tachycardic) Lungs: Clear Abdomen: No masses Extremities: No clubbing, No cyanosis Skin: No rashes, No breakdown Labs Labs: Laboratory Tests Test 11/06/21 11:37 11/07/21 07:00 Sodium Level 135 mmol/L (136-145) Potassium Level 3.6 mmol/L (3.5-5.1) Chloride Level 100 mmol/L (98-107) Carbon Dioxide Level 28 mmol/L (21-32) Anion Gap 7 (6-14) Blood Urea Nitrogen 5 mg/dL (8-26) Creatinine 0.6 mg/dL (0.7-1.3) Estimated GFR (Cockcroft-Gault) 200.3 Glucose Level 137 mg/dL (70-99) Calcium Level 8.4 mg/dL (8.5-10.1) Magnesium Level 2.0 mg/dL (1.8-2.4) White Blood Count 13.4 x10^3/uL (4.0-11.0) Red Blood Count 3.05 x10^6/uL (4.30-5.70) Hemoglobin 8.6 g/dL (13.0-17.5) Hematocrit 25.0 % (39.0-53.0) Mean Corpuscular Volume 82 fL (79-100) Mean Corpuscular Hemoglobin 28 pg (25-35) Mean Corpuscular Hemoglobin Concent 35 g/dL (31-37) Red Cell Distribution Width 24.9 % (11.5-14.5) Platelet Count 150 x10^3/uL (140-400) Absolute Reticulocyte Count 0.130 x10^6/uL (0.020-0.120) Percent Reticulocyte Count 4.3 % (0.5-2.3) Immature Reticulocyte Fraction 0.64 (0.20-0.60) Assessment and Plan Assessmemt and Plan Problems Medical Problems: (1) Sickle cell pain crisis Status: Acute Comment Review of Relevant I have reviewed the following items misty (where applicable) has been applied. Medications: Current Medications Medications (Trade) Dose Ordered Sig/Glenis Route PRN Reason Start Time Stop Time Status Last Admin Dose Admin Piperacillin Sod/ Tazobactam Sod 3.375 gm/Sodium Chloride 50 ml @ 100 mls/hr Q6HRS IV 11/07/21 05:00 11/07/21 08:29 Sodium Chloride 1,000 ml @ 200 mls/hr Q5H IV 11/07/21 05:00 11/07/21 05:42 Justifications for Admission Other Justification Concern for pulmonary embolism JUDY MAZARIEGOS MD Nov 07, 2021 10:14
--- NOTE | 2021-11-07 10:34 | NUR ---
Positive sepsis called to ICU at 1030, spoke to CAS Smith, all orders are in. Dr. Rea was notified and no new orders received from
[2021-11-07 11:00] VITALS: BP 132/74
--- NOTE | 2021-11-07 11:07 | RAD ---
XR CHEST 1V History: Reason: sepsis / Spl. Instructions: / History: Comparison: October 10, 2021 Findings: Mild patchy bibasilar opacities, left greater than right. No pleural effusion. No pneumothorax. Uncha nged heart size. Impression: 1. Mild patchy bibasilar opacities, left greater than right, may represent atelectasis or developing infiltrates. If persistent clinical concern, recommend follow-up. Electronically signed by: Nahum Sheriff DO (11/07/2021 11:04 AM) [id number]
--- NOTE | 2021-11-07 11:21 | NUR ---
SW following. Discussed with RN, pt from home, 2L (does not use oxygen at home), regular diet. Still on PRODUCTION UNDERWRITER. Pt will discharge home when medically stable. SW will continue to follow.
[2021-11-07] MEDS: POLYETHYLENE GLYCOL 3350 17 GM PACKET. PO SCH ×2 (11:57→18:23)
[2021-11-07] MEDS: ENOXAPARIN 40 MG/0.4 ML SYRINGE. SQ SCH (11:58)
--- NOTE | 2021-11-07 12:23 | RAD ---
INDICATION: Reason: RT LEG PAIN / Spl. Instructions: / History: COMPARISON: None. TECHNIQUE: Grayscale, color and doppler ultrasound images were obtained of the right lower extremity venous vasculature. RIGHT: No thrombus identified in the common femoral vein, femoral vein, popliteal vein or visualized calf ve ins. IMPRESSION: * No thrombus identified in deep venous system of right lower extremity. Electronically signed by: Kevon Montesinos MD (11/07/2021 12:21 PM) [id number]
[2021-11-07 15:00] VITALS: BP 131/75
[2021-11-07 19:00] VITALS: BP 134/70
[2021-11-07 23:00] VITALS: BP 123/64
[2021-11-08] MEDS: POLYETHYLENE GLYCOL 3350 17 GM PACKET. PO SCH
[2021-11-08 03:00] VITALS: BP 141/74
[2021-11-08] MEDS: ACETAMINOPHEN 325 MG TABLET. PO PRN ×2 (03:18→19:48)
[2021-11-08] MEDS: PIPERACILLIN/TAZOBACTAM 3.375 GM in IV NORMAL SALINE 50ML 50 ML IV SCH ×5 (05:19→23:58)
[2021-11-08] MEDS: IV NORMAL SALINE 1000ML BAG 1,000 ML IV SCH ×6 (05:48→19:48)
[2021-11-08 06:58] LABS: HEMATOCRIT 21.2 % (39.0-53.0); HEMOGLOBIN 7.4 g/dL (13.0-17.5); RED BLOOD COUNT 2.63 x10^6/uL (4.30-5.70); WHITE BLOOD COUNT 10.2 x10^3/uL (4.0-11.0)
[2021-11-08 07:00] VITALS: BP 114/72
[2021-11-08] MEDS: SENNOSIDES/DOCUSATE 8.6/50MG TABLET. PO SCH ×2 (08:33→19:36)
[2021-11-08] MEDS: MULTIVITAMIN with MINERAL TABLET. PO SCH (08:33)
[2021-11-08 09:40] LABS: CALCIUM 8.2 mg/dL (8.5-10.1); CREATININE 0.6 mg/dL (0.7-1.3); GFR 200.3; MAGNESIUM 2.1 mg/dL (1.8-2.4); POTASSIUM 3.5 mmol/L (3.5-5.1)
[2021-11-08 11:00] VITALS: BP 133/80
--- NOTE | 2021-11-08 11:30 | PDOC ---
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 Once agai n, he presents with a sickle cell crisis. I discussed the case with ER physician. The patient has a 10/10 pain, it is intractable. We are going to admit the patient and give him sickle cell protocol. 11/08/2021 No acute events overnight. Patient seen examined bedside. Pain is improved after bowel movement. Still recording as 8 out of 10. Patient still refusing PRBC transfusions mainly because he does not want to have complications from the blood transfusions. He has had a family member that from sickle cell disease and wants to try alternatives for his disease. Patient has been on routine immunomodulatory infusions at . Patient's chart, labs, images were reviewed and discussed with RN 11/07/2021 No acute events overnight. Patient seen examined bedside. Fever of 101.5 last night. Blood cultures drawn and IV Zosyn started. Patient does complain of pain out of 8 out of 10. Mainly in his back and right lower extremity. Tender upon palpation. Will obtain DVT ultrasound of the right lower extremity to rule out DVT. I have adjusted his NET DEVELOPER CONSULTANT settings for continuous fentanyl at 100 MCG per hour and demand of 15 MCG every 20 minutes. Patient saturating 91% on 2 L nasal cannula. Not short of breath. No dyspnea upon exertion. Instructed for patient to sit up in a chair. MiraLAX ordered for constipation. Patient's chart, labs, images were reviewed and discussed with RN 11/06/2021 No acute events overnight. Patient seen examined bedside. Still complaining of whole whole body pain near his joints. Rates scale of 8 out of 10. Hemoglobin 8.6. Will transfuse 1 unit PRBC. Saturating 91% on 2 L nasal cannula. AF and VSS. Still on fentanyl NET DEVELOPER CONSULTANT. 11/05: Patient evaluated bedside. He remains in exquisite pain, mostly in his bilateral knees. Apparently refused labs this morning. He denies significant shortness of breath. Patient states he is no longer on hydroxyurea. Spoke with pharmacy and they do not carry his current sickle cell, Armando. 11/04: Patient seen and evaluated bedside. He is very tearful and appears to be in exquisite pain. He reports pain in his bilateral legs and back. He is very opioid tolerant; will initiate fentanyl NET DEVELOPER CONSULTANT pump. Discussed with pharmacy. Vitals/I&O Vitals/I&O: Vital Signs Date Time Temp Pulse Resp B/P (MAP) Pulse Ox O2 Delivery O2 Flow Rate FiO2 11/08/21 08:30 Room Air 11/08/21 07:00 98.4 77 24 114/72 (86) 86 98.4 11/08/21 06:19 2.0 I & O 11/07/21 11/07/21 11/08/21 15:00 23:00 07:00 Intake Total 1000 ml 450 ml 1354 ml Output Total 3875 ml 5150 ml Balance -2875 ml 450 ml -3796 ml Physical Exam General: Alert, Cooperative, severe distress Heart: Other (Tachycardic) Lungs: Clear Abdomen: No masses Extremities: No clubbing, No cyanosis Skin: No rashes, No breakdown Labs Labs: Laboratory Tests Test 11/07/21 14:07 11/08/21 06:45 Lactic Acid Level 1.3 mmol/L (0.4-2.0) White Blood Count 10.2 x10^3/uL (4.0-11.0) Red Blood Count 2.63 x10^6/uL (4.30-5.70) Hemoglobin 7.4 g/dL (13.0-17.5) Hematocrit 21.2 % (39.0-53.0) Mean Corpuscular Volume 81 fL (79-100) Mean Corpuscular Hemoglobin 28 pg (25-35) Mean Corpuscular Hemoglobin Concent 35 g/dL (31-37) Red Cell Distribution Width 25.0 % (11.5-14.5) Platelet Count 165 x10^3/uL (140-400) Absolute Reticulocyte Count 0.130 x10^6/uL (0.020-0.120) Percent Reticulocyte Count 5.0 % (0.5-2.3) Immature Reticulocyte Fraction 0.65 (0.20-0.60) Sodium Level 139 mmol/L (136-145) Potassium Level 3.5 mmol/L (3.5-5.1) Chloride Level 102 mmol/L (98-107) Carbon Dioxide Level 28 mmol/L (21-32) Anion Gap 9 (6-14) Blood Urea Nitrogen 4 mg/dL (8-26) Creatinine 0.6 mg/dL (0.7-1.3) Estimated GFR (Cockcroft-Gault) 200.3 Glucose Level 93 mg/dL (70-99) Calcium Level 8.2 mg/dL (8.5-10.1) Magnesium Level 2.1 mg/dL (1.8-2.4) Assessment and Plan Assessmemt and Plan Problems Medical Problems: (1) Sickle cell pain crisis Status: Acute Comment Review of Relevant I have reviewed the following items misty (where applicable) has been applied. Medications: Current Medications Medications (Trade) Dose Ordered Sig/Glenis Route PRN Reason Start Time Stop Time Status Last Admin Dose Admin Polyethylene Glycol (miraLAX PACKET) 17 gm Q6HRS PO 11/07/21 12:00 11/08/21 05:28 DC 11/07/21 18:23 Justifications for Admission Other Justification Concern for pulmonary embolism JUDY MAZARIEGOS MD Nov 08, 2021 11:30
[2021-11-08] MEDS ORDERED: VANCOMYCIN PER PHARMACY MC PRN (11:45)
[2021-11-08] MEDS: ENOXAPARIN 40 MG/0.4 ML SYRINGE. SQ SCH (11:51)
[2021-11-08] MEDS ORDERED: VANCOMYCIN 2 GM in IV NORMAL SALINE 500ML BAG 500 ML IV ONE (12:30)
[2021-11-08] MEDS: LINEZOLID 600 MG TABLET PO SCH ×2 (14:01→19:47)
[2021-11-08 15:00] VITALS: BP 121/69
[2021-11-08 19:00] VITALS: BP 120/69
[2021-11-08 23:00] VITALS: BP 122/64
[2021-11-09] MEDS: IV NORMAL SALINE 1000ML BAG 1,000 ML IV SCH ×6 (02:00→23:30)
[2021-11-09 02:38] VITALS: BP 119/64
[2021-11-09] MEDS: PIPERACILLIN/TAZOBACTAM 3.375 GM in IV NORMAL SALINE 50ML 50 ML IV SCH ×4 (05:42→23:34)
[2021-11-09 07:00] VITALS: BP 139/77
[2021-11-09] MEDS: LINEZOLID 600 MG TABLET PO SCH ×2 (08:32→20:54)
[2021-11-09] MEDS: MULTIVITAMIN with MINERAL TABLET. PO SCH (08:32)
[2021-11-09] MEDS: SENNOSIDES/DOCUSATE 8.6/50MG TABLET. PO SCH ×2 (08:32→21:00)
--- NOTE | 2021-11-09 09:47 | PDOC ---
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 Once agai n, he presents with a sickle cell crisis. I discussed the case with ER physician. The patient has a 10/10 pain, it is intractable. We are going to admit the patient and give him sickle cell protocol. 11/09/2021 No acute events overnight. Patient seen examined bedside. AF and VSS. Saturating 95% 3 L nasal cannula. Currently pain is 7 out of 10 improved from yesterday. Tolerating diet. Had bowel movement yesterday. Continue with linezolid and Zosyn for empiric coverage. Covering for potential staph or pseudomonal infection from sickle cell crisis. Pending ID input. Patient's chart, labs, images were reviewed and discussed with RN 11/08/2021 No acute events overnight. Patient seen examined bedside. Pain is improved after bowel movement. Still recording as 8 out of 10. Patient still refusing PRBC transfusions mainly because he does not want to have complications from the blood transfusions. He has had a family member that from sickle cell disease and wants to try alternatives for his disease. Patient has been on routine immunomodulatory infusions at . Patient's chart, labs, images were reviewed and discussed with RN 11/07/2021 No acute events overnight. Patient seen examined bedside. Fever of 101.5 last night. Blood cultures drawn and IV Zosyn started. Patient does complain of pain out of 8 out of 10. Mainly in his back and right lower extremity. Tender upon palpation. Will obtain DVT ultrasound of the right lower extremity to rule out DVT. I have adjusted his MATERIALS PLANNING ANALYST settings for continuous fentanyl at 100 MCG per hour and demand of 15 MCG every 20 minutes. Patient saturating 91% on 2 L nasal cannula. Not short of breath. No dyspnea upon exertion. Instructed for patient to sit up in a chair. MiraLAX ordered for constipation. Patient's chart, labs, images were reviewed and discussed with RN 11/06/2021 No acute events overnight. Patient seen examined bedside. Still complaining of whole whole body pain near his joints. Rates scale of 8 out of 10. Hemoglobin 8.6. Will transfuse 1 unit PRBC. Saturating 91% on 2 L nasal cannula. AF and VSS. Still on fentanyl MATERIALS PLANNING ANALYST. 11/05: Patient evaluated bedside. He remains in exquisite pain, mostly in his bilateral knees. Apparently refused labs this morning. He denies significant shortness of breath. Patient states he is no longer on hydroxyurea. Spoke with pharmacy and they do not carry his current sickle cell, Armando. 11/04: Patient seen and evaluated bedside. He is very tearful and appears to be in exquisite pain. He reports pain in his bilateral legs and back. He is very opioid tolerant; will initiate fentanyl MATERIALS PLANNING ANALYST pump. Discussed with pharmacy. Vitals/I&O Vitals/I&O: Vital Signs Date Time Temp Pulse Resp B/P (MAP) Pulse Ox O2 Delivery O2 Flow Rate FiO2 11/09/21 08:44 Nasal Cannula 2.0 11/09/21 07:00 97.9 100 26 139/77 (97) 90 97.9 I & O 11/08/21 11/08/21 11/09/21 15:00 23:00 07:00 Intake Total 2650 ml 1050 ml Output Total 2200 ml 2100 ml 5300 ml Balance 450 ml -1050 ml -5300 ml Physical Exam General: Alert, Cooperative, severe distress Heart: Other (Tachycardic) Lungs: Clear Abdomen: No masses Extremities: No clubbing, No cyanosis Skin: No rashes, No breakdown Assessment and Plan Assessmemt and Plan Problems Medical Problems: (1) Sickle cell pain crisis Status: Acute Comment Review of Relevant I have reviewed the following items misty (where applicable) has been applied. Medications: Current Medications Medications (Trade) Dose Ordered Sig/Glenis Route PRN Reason Start Time Stop Time Status Last Admin Dose Admin Linezolid (Zyvox) 600 mg BID PO 11/08/21 13:00 11/15/21 12:59 11/09/21 08:32 Justifications for Admission Other Justification Concern for pulmonary embolism JUDY MAZARIEGOS MD Nov 09, 2021 09:47
[2021-11-09 10:18] LABS: HEMATOCRIT 20.8 % (39.0-53.0); HEMOGLOBIN 7.3 g/dL (13.0-17.5); RED BLOOD COUNT 2.59 x10^6/uL (4.30-5.70); RED CELL DISTRIBUTION WIDTH 25.5 % (11.5-14.5); WHITE BLOOD COUNT 11.2 x10^3/uL (4.0-11.0)
[2021-11-09 10:25] LABS: CALCIUM 8.5 mg/dL (8.5-10.1); CREATININE 0.6 mg/dL (0.7-1.3); GFR 200.3; POTASSIUM 3.5 mmol/L (3.5-5.1)
[2021-11-09 11:00] VITALS: BP 137/73
[2021-11-09] MEDS: ENOXAPARIN 40 MG/0.4 ML SYRINGE. SQ SCH (11:57)
[2021-11-09 15:00] VITALS: BP 124/73
[2021-11-09 19:00] VITALS: BP 127/73
[2021-11-09] MEDS: oxyCODONE IR 5 MG TABLET PO PRN (21:17)
[2021-11-09 23:00] VITALS: BP 115/67
[2021-11-10] MEDS: IV NORMAL SALINE 1000ML BAG 1,000 ML IV SCH ×6 (03:00→20:44)
[2021-11-10] MEDS: oxyCODONE IR 5 MG TABLET PO PRN (05:32)
[2021-11-10] MEDS: PIPERACILLIN/TAZOBACTAM 3.375 GM in IV NORMAL SALINE 50ML 50 ML IV SCH (05:50)
[2021-11-10 06:15] VITALS: BP 116/74
[2021-11-10] MEDS: SENNOSIDES/DOCUSATE 8.6/50MG TABLET. PO SCH ×2 (08:46→21:00)
[2021-11-10] MEDS: MULTIVITAMIN with MINERAL TABLET. PO SCH (08:46)
[2021-11-10] MEDS: LINEZOLID 600 MG TABLET PO SCH (08:46)
[2021-11-10 11:00] VITALS: BP 120/78
[2021-11-10] MEDS: ENOXAPARIN 40 MG/0.4 ML SYRINGE. SQ SCH (11:00)
--- NOTE | 2021-11-10 11:12 | PDOC ---
[employer] PROGRESS NOTE Date of Service DOS: DATE: 11/10/21 TIME: 11:11 Chief Complaint Chief Complaint Sepsis Sickle cell pain crisis Acute chest syndrome Anemia secondary to sickle cell disease Continue with empiric IV antibiotics O2 supplementation to maintain O2 saturations greater than 92% Continue with IV fentanyl CLEAT FEEDER Continue with IV fluids Bowel regimen Appreciate hematology input History of Present Illness History of Present Illness The patient is a pleasant 26-year-old male with sickle cell disease. Once agai n, he presents with a sickle cell crisis. I discussed the case with ER physician. The patient has a 10/10 pain, it is intractable. We are going to admit the patient and give him sickle cell protocol. 11/10/2021 No acute events overnight. Patient seen examined bedside. AF and VSS. Pain is much improved and tolerating diet. Will decrease IV fentanyl CLEAT FEEDER to 10 MCG every 20 minutes and 50 MCG per hour 11/09/2021 No acute events overnight. Patient seen examined bedside. AF and VSS. Saturating 95% 3 L nasal cannula. Currently pain is 7 out of 10 improved from yesterday. Tolerating diet. Had bowel movement yesterday. Continue with linezolid and Zosyn for empiric coverage. Covering for potential staph or pseudomonal infection from sickle cell crisis. Pending ID input. Patient's chart, labs, images were reviewed and discussed with RN 11/08/2021 No acute events overnight. Patient seen examined bedside. Pain is improved after bowel movement. Still recording as 8 out of 10. Patient still refusing PRBC transfusions mainly because he does not want to have complications from the blood transfusions. He has had a family member that from sickle cell disease and wants to try alternatives for his disease. Patient has been on routine immunomodulatory infusions at . Patient's chart, labs, images were reviewed and discussed with RN 11/07/2021 No acute events overnight. Patient seen examined bedside. Fever of 101.5 last night. Blood cultures drawn and IV Zosyn started. Patient does complain of pain out of 8 out of 10. Mainly in his back and right lower extremity. Tender upon palpation. Will obtain DVT ultrasound of the right lower extremity to rule out DVT. I have adjusted his CLEAT FEEDER settings for continuous fentanyl at 100 MCG per hour and demand of 15 MCG every 20 minutes. Patient saturating 91% on 2 L nasal cannula. Not short of breath. No dyspnea upon exertion. Instructed for patient to sit up in a chair. MiraLAX ordered for constipation. Patient's chart, labs, images were reviewed and discussed with RN 11/06/2021 No acute events overnight. Patient seen examined bedside. Still complaining of whole whole body pain near his joints. Rates scale of 8 out of 10. Hemoglobin 8.6. Will transfuse 1 unit PRBC. Saturating 91% on 2 L nasal cannula. AF and VSS. Still on fentanyl CLEAT FEEDER. 11/05: Patient evaluated bedside. He remains in exquisite pain, mostly in his bilateral knees. Apparently refused labs this morning. He denies significant shortness of breath. Patient states he is no longer on hydroxyurea. Spoke with pharmacy and they do not carry his current sickle cell, Endari. 11/04: Patient seen and evaluated bedside. He is very tearful and appears to be in exquisite pain. He reports pain in his bilateral legs and back. He is very opioid tolerant; will initiate fentanyl CLEAT FEEDER pump. Discussed with pharmacy. Vitals/I&O Vitals/I&O: Vital Signs Date Time Temp Pulse Resp B/P (MAP) Pulse Ox O2 Delivery O2 Flow Rate FiO2 11/10/21 11:00 98.8 71 17 120/78 (92) 95 Nasal Cannula 2.0 98.8 I & O 11/09/21 11/09/21 11/10/21 15:00 23:00 07:00 Intake Total 1440 ml 2650 ml 200 ml Output Total 2000 ml 2000 ml Balance -560 ml 650 ml 200 ml Physical Exam General: Alert, Cooperative, severe distress Heart: Other (Tachycardic) Lungs: Clear Abdomen: No masses Extremities: No clubbing, No cyanosis Skin: No rashes, No breakdown Assessment and Plan Assessmemt and Plan Problems Medical Problems: (1) Sickle cell pain crisis Status: Acute Comment Review of Relevant I have reviewed the following items misty (where applicable) has been applied. Justifications for Admission Other Justification Concern for pulmonary embolism JUDY MAZARIEGOS MD Nov 10, 2021 11:12
--- NOTE | 2021-11-10 12:56 | NUR ---
SW following. Discussed with RN, pt from home. Discharge home when medically stable. Per RN, pt stated he wanted to go home today. RN advised no SW needs. SW will continue to follow.
[2021-11-10] MEDS: AMOXICILLIN/K CLAV 875/125MG TABLET. PO SCH ×2 (13:38→20:52)
[2021-11-10 15:00] VITALS: BP 134/61
--- NOTE | 2021-11-10 16:54 | CONS ---
DATE OF CONSULTATION: 11/10/2021 REQUESTING PHYSICIAN: Dr. Rea. REASON FOR CONSULTATION: Antibiotic management. HISTORY OF PRESENT ILLNESS: This is a 26-year-old -[place] gentleman with sickle cell disease, who came in with diffuse body ache. The patient had low-grade fever, leukocytosis, pulmonary infiltrate. The patient received Zyvox and Zosyn. The patient is feeling much better. He is ready to go home. Pain has improved some; is present but improved. Cough is improved. No fever. The patient denies any nausea, vomiting, diarrhea. PAST MEDICAL HISTORY: Positive for sickle cell disease. SOCIAL HISTORY: Negative for smoking, alcohol, illicit drug use. ALLERGIES: No known drug allergies. CURRENT MEDICATIONS: Reviewed. REVIEW OF SYSTEMS: As in HPI. All other systems reviewed are negative. PHYSICAL EXAMINATION: GENERAL: Alert, oriented gentleman, not in distress. VITAL SIGNS: Temperature 98.8, pulse 71, respirations 17, blood pressure 120/78. HEENT: Both pupils are round and reacting. No conjunctival lesion, no lesion in the mouth. NECK: Supple, no JVP, no lymphadenopathy. LUNGS: Clear. HEART: S1, S2, regular. ABDOMEN: Benign. EXTREMITIES: No edema, cyanosis. SKIN: Unremarkable. NEUROLOGIC: The patient is alert, awake, and appropriate. No focal neurologic deficit. LABORATORY DATA: White count is 11.2. BUN and creatinine is normal. Blood cultures are negative. Chest x-ray showed diffuse pulmonary mild patchy bibasilar opacity. IMPRESSION: 1. Low-grade fever. 2. Leukocytosis. 3. Sickle cell crisis. 4. Pulmonary infiltrate. RECOMMENDATIONS: Change antibiotics to p.o. Augmentin. The patient is okay to go home. Thank you very much, Dr. Rea, for giving me opportunity to participate in this patient's care. ROSALIO/ZAK/HUMBERTO DR: ROSALIO/oscar TID: [id number]
[2021-11-10 19:00] VITALS: BP 125/78
[2021-11-10 23:00] VITALS: BP 114/74
[2021-11-11] MEDS: IV NORMAL SALINE 1000ML BAG 1,000 ML IV SCH ×2 (01:57→07:18)
[2021-11-11 03:00] VITALS: BP 127/73
[2021-11-11 07:00] VITALS: BP 120/70
[2021-11-11] MEDS: SENNOSIDES/DOCUSATE 8.6/50MG TABLET. PO SCH (09:00)
[2021-11-11] MEDS: AMOXICILLIN/K CLAV 875/125MG TABLET. PO SCH (09:32)
[2021-11-11] MEDS: MULTIVITAMIN with MINERAL TABLET. PO SCH (09:32)
[2021-11-11] MEDS ORDERED: SENN1TAB99 PO (10:59)
[2021-11-11] MEDS ORDERED: OXYC5TAB4 PO (10:59)
[2021-11-11] MEDS ORDERED: AMOX1TAB11 PO (10:59)
[2021-11-11 11:00] VITALS: BP 124/69
[2021-11-11] MEDS: ENOXAPARIN 40 MG/0.4 ML SYRINGE. SQ SCH (11:00)
[2021-11-11] MEDS ORDERED: CYAN1TAB19 PO (11:02)
--- NOTE | 2021-11-11 11:02 | DISCH ---
DISCHARGE INSTRUCTIONS Condition on Discharge Condition on Discharge: Stable Activity After Discharge Activity Instructions for Disc: Activity as tolerated Exercise Instruction after Dis: Progress as tolerated Driving Instructions after Dis: Do not drive today Weight Bearing Status after Di: As tolerated Diet after Discharge Diet after Discharge: Regular Diet Texture: Regular Liquid Texture: Thin Liquid Swallowing Supervision: None needed Wound Incision Care Wound/Incision Care: No wound care needed Checks after Discharge Checks after discharge: Check blood press - daily, Check your Temp as needed Contacting the DR. after DC Call your doctor for: If your condition worsens Follow-Up Follow up with: PCP within 2 weeks of discharge Treatment/Equipment after DC Adaptive Equipment Issued: None JUDY MAZARIEGOS MD Nov 11, 2021 11:02
--- NOTE | 2021-11-11 11:57 | PDOC ---
Infectious Disease Note Subjective Subjective Patient is feeling good ROS ROS No nausea vomiting diarrhea Vital Sign Vital Signs Vital Signs Date Time Temp Pulse Resp B/P (MAP) Pulse Ox O2 Delivery O2 Flow Rate FiO2 11/11/21 11:00 98.9 87 19 124/69 (87) 86 Nasal Cannula 2.0 98.9 Physical Exam PHYSICAL EXAM GENERAL: Alert, oriented gentleman, not in distress. VITAL SIGNS: Temperature 98.8, pulse 71, respirations 17, blood pressure 120/78. HEENT: Both pupils are round and reacting. No conjunctival lesion, no lesion in the mouth. NECK: Supple, no JVP, no lymphadenopathy. LUNGS: Clear. HEART: S1, S2, regular. ABDOMEN: Benign. EXTREMITIES: No edema, cyanosis. SKIN: Unremarkable. NEUROLOGIC: The patient is alert, awake, and appropriate. No focal neurologic deficit. Labs Micro Microbiology 11/07/21 Blood Culture - Preliminary, Resulted NO GROWTH AFTER 3 DAYS Objective Assessment IMPRESSION: 1. Low-grade fever. 2. Leukocytosis. 3. Sickle cell crisis. 4. Pulmonary infiltrate. Plan Plan of Care Okay to DC on p.o. antibiotics CHUN WHITFIELD MD Nov 11, 2021 11:57
--- NOTE | 2021-11-11 13:40 | NUR ---
Discharge Note: RASHAUN CHURCH [address] Discharge instructions and discharge home medications reviewed with Patient and a copy given. All questions have been answered and understanding verbalized. The following instructions and handouts were given: follow up instructions, medication education Discontinued lines and drains: 20 guage right FA, tip intact. patient tolerated well. Patient discharged to home with self care via self.
== END 2021-11-11 12:14 | disposition home or self-care (01) | DRG 871 ==
LOC: ER 08:58 → ED HOLD 12:20 → 5 NORTH 12:31
PROVIDERS: ADMIT Internal Medicine; ATTEND Internal Medicine
DX: A41.9 Sepsis, unspecified organism (principal); D57.00 Hb-SS disease with crisis, unspecified; Z83.2 Family history of diseases of the blood and blood-forming organs and certain disorders involving the immune mechanism; Z87.891 Personal history of nicotine dependence; R91.8 Other nonspecific abnormal finding of lung field; Z88.5 Allergy status to narcotic agent
CPT/HCPCS: 36415; 71045; 80048; 83605; 83735; 85025; 85027; 85045; 86850; 86900; 86901; 86920; 87040; 93971; 96361; 96374; 96376; J1170; J2543; J3010; J7030; 99285-25; G0378

== ENCOUNTER 2021-11-21 18:55 | Emergency (ER) | payer BC, MEDICARE ==
[~2021-11-21] VITALS: Ht 177.8 cm; Wt 88.6 kg
[~2021-11-21 18:55] MED LIST changes: +CYAN1TAB19 PO; +SENN1TAB99 PO
[2021-11-21] MEDS ORDERED: IV NORMAL SALINE 1000ML BAG 1,000 ML IV ONE (19:30)
[2021-11-21] MEDS ORDERED: fentaNYL PF VIAL 100 MCG/2 ML VIAL IVP ONE ×3 (20:00→22:00)
--- NOTE | 2021-11-21 20:18 | PHYS DOC ---
Past Medical History Past Medical History: Sickle Cell Disease, Other Additional Past Medical Histor: sickle cell Past Surgical History: No Surgical History Additional Past Surgical Histo: R KNEE SX Smoking Status: Never Smoker Alcohol Use: None Drug Use: None, Marijuana General Adult EDM: Chief Complaint: OTHER COMPLAINTS HPI: HPI: Patient is a 26 year old male past medical history sickle cell presents with a chief complaint of sickle cell pain. Patient typical location of the pain is in his back and his legs. Patient states symptoms are typical of an acute flare. He states symptoms been ongoing for the last 3 or 4 days he has been taking his prescribed pain medications with mild relief. Patient well-known to me usually treated with fentanyl Percocet and IV fluids. Patient's vital signs are stable he appears in no acute distress. Review of Systems: Review of Systems: Review of systems: Constitutional symptoms- No fever, no chills. Eyes- No Discharge, No Visual Loss Respiratory symptoms- No shortness of breath, No wheezing, No Dyspnea on Exertion Cardiovascular Systems; No chest pain, No Palpitations, No syncope Gastrointestinal symptoms: NO abdominal pain, no nausea, no vomiting or diarrhea. Genitourinary symptoms: No dysuria. Musculoskeletal symptoms: Positive back pain Positive extremity pain. NEUROLOGICAL Symptoms: No headache, no generalized weakness; No focal Weakness Skin: No rash. Heart Score: C/O Chest Pain: N/A Risk Factors: Risk Factors: DM, Current or recent (<one month) smoker, HTN, HLP, family history of CAD, obesity. Risk Scores: Score 0 - 3: 2.5% MACE over next 6 weeks - Discharge Home Score 4 - 6: 20.3% MACE over next 6 weeks - Admit for Clinical Observation Score 7 - 10: 72.7% MACE over next 6 weeks - Early Invasive Strategies Current Medications: Current Medications Medications (Trade) Dose Ordered Sig/Glenis Start Time Stop Time Status Last Admin Dose Admin Fentanyl Citrate (Fentanyl 2ml Vial) 75 mcg 1X ONCE 11/21/21 20:00 11/21/21 20:01 DC 11/21/21 19:45 75 MCG Sodium Chloride 1,000 ml @ 1,000 mls/hr 1X ONCE 11/21/21 19:30 11/21/21 20:29 11/21/21 19:30 1,000 MLS/HR Allergies: Allergies: Allergies Coded Allergies Type Severity Reaction Last Updated Verified morphine Allergy Severe swelling, hives 2/28/22 Yes Physical Exam: PE: Constitutional: Well developed, well nourished, no acute distress, non-toxic appearance. [] HENT: Normocephalic, atraumatic, bilateral external ears normal, oropharynx moist, no oral exudates, nose normal. [] Eyes: PERRLA, EOMI, conjunctiva normal, no discharge. [] Neck: Normal range of motion, no tenderness, supple, no stridor. [] Cardiovascular:Heart rate regular rhythm, no murmur [] Lungs & Thorax: Bilateral breath sounds clear to auscultation [] Abdomen: Bowel sounds normal, soft, no tenderness, no masses, no pulsatile masses. [] Skin: Warm, dry, no erythema, no rash. [] Back: No tenderness, no CVA tenderness. [] Extremities: No tenderness, no cyanosis, no clubbing, ROM intact, no edema. [] Neurologic: Alert and oriented X 3, normal motor function, normal sensory function, no focal deficits noted. [] Psychologic: Affect normal, judgement normal, mood normal. [] Current Patient Data: Vital Signs: Vital Signs Date Time Temp Pulse Resp B/P (MAP) Pulse Ox O2 Delivery O2 Flow Rate FiO2 11/21/21 19:45 18 11/21/21 19:10 99.2 100 122/71 (88) 97 Room Air 99.2 EKG: EKG: [] Radiology/Procedures: Radiology/Procedures: [] Course & Med Decision Making: Course & Med Decision Making Pertinent Labs and Imaging studies reviewed. (See chart for details) [] Patient evaluated for chief complaint. Patient's vital signs are stable. Patient was treated around 1 with fentanyl 75 1 L IV fluids. Around 2 fentanyl 75, 1 L of IV fluids, Benadryl and Toradol. At this time I think patient is stable for discharge. He states he is out of his Percocets I will refill his Percocets. Patient to follow-up with his d ifeoma at . Patient told nursing that he does not want to leave. He wants to be admitted to the hospital. States he has no money to fill his pain medications. Dragon Disclaimer: Dragcaro Disclaimer: This electronic medical record was generated, in whole or in part, using a voice recognition dictation system. Departure Departure Impression: Primary Impression: Sickle cell pain crisis Additional Impressions: Sickle-cell disease with pain Chronic lower limb pain Disposition: HOME / SELF CARE / HOMELESS Condition: STABLE Referrals: UNKNOWN PCP NAME (PCP) Patient Instructions: Chronic Pain, Sickle Cell Anemia Scripts Oxycodone/Apap 10-325 (PERCOCET 10-325 MG TABLET ) 1 Each Tablet 1 TAB PO QIDPRN PRN for PAIN MDD 4 Tablet(s) for 5 Days, #20 TAB 0 Refills Prov: JAYY PRESLEY DO 11/21/21 JAYY PRESLEY DO Nov 21, 2021 20:18
[2021-11-21] MEDS ORDERED: OXYC1TAB22 PO (20:50)
[2021-11-21] MEDS ORDERED: diphenhydrAMINE 50 MG/ML VIAL IVP ONE (21:15)
[2021-11-21] MEDS ORDERED: KETOROLAC 30 MG/ML VIAL. IVP ONE (21:15)
[2021-11-21 21:47] VITALS: BP 117/72
== END 2021-11-21 22:31 | disposition home or self-care (01) ==
LOC: ER 18:55
DX: D57.00 Hb-SS disease with crisis, unspecified (principal); G89.29 Other chronic pain; M79.604 Pain in right leg; M79.605 Pain in left leg; Z88.5 Allergy status to narcotic agent
CPT/HCPCS: 96361; 96374; 96375; 96376; 99285; J1200; J1885; J3010; J7030

== ENCOUNTER 2021-11-23 11:50 | Emergency (ER) | payer MEDICARE ==
[~2021-11-23] VITALS: Ht 177.8 cm; Wt 86.9 kg
[~2021-11-23 11:50] MED LIST changes: +OXYC1TAB22 PO
[2021-11-23] MEDS ORDERED: HYDROmorphone 2 MG/ML INJ. IVP ONE ×2 (13:45→15:00)
[2021-11-23] MEDS ORDERED: IV NORMAL SALINE 1000ML BAG 1,000 ML IV ONE (13:45)
[2021-11-23] MEDS ORDERED: diphenhydrAMINE HCL 25 MG CAPSULE PO ONE (13:45)
[2021-11-23] MEDS ORDERED: KETOROLAC 30 MG/ML VIAL. IVP ONE (13:45)
--- NOTE | 2021-11-23 13:52 | PHYS DOC ---
Past Medical History Past Medical History: Sickle Cell Disease, Other Additional Past Medical Histor: sickle cell Past Surgical History: No Surgical History Additional Past Surgical Histo: R KNEE SX Smoking Status: Never Smoker Alcohol Use: None Drug Use: None, Marijuana General Adult EDM: Chief Complaint: PAIN CONTROL HPI: HPI: Patient is a 26-year-old male that presents today with lower extremity pain due to sickle cell crisis. Patient is well-known to this emergency department with multiple emergency department visits in the month of October with a prolonged admission of 6 days from November 03 - November 11 for sickle cell disease. Patient states that he was here on Wednesday and was treated with IV fluids, pain medication, Benadryl, and Toradol, he was given a refill of his medication for Percocet and was instructed to follow-up with his primary care physician. Patient states he does have an appointment tomorrow with his sickle cell clinic but he continues to have pain even with taking Percocet. Patient states he took 1 Percocet today at 8:00 this morning and that has not helped with his pain so he presents today for further evaluation and treatment. Patient denies chest pain, shortness of breath, or fever and chills. Patient is requesting not to be admitted because he does have an appointment with his sickle cell disease and he is currently on a medication for his sickle cell disease and would like follow- up for that. Review of Systems: Review of Systems: Constitutional: Denies fever or chills. [] Eyes: Denies change in visual acuity. [] HENT: Denies nasal congestion or sore throat. [] Respiratory: Denies cough or shortness of breath. [] Cardiovascular: Denies chest pain or edema. [] GI: Denies abdominal pain, nausea, vomiting, bloody stools or diarrhea. [] : Denies dysuria. [] Musculoskeletal: Lower extremity pain Integument: Denies rash. [] Neurologic: Denies headache, focal weakness or sensory changes. [] Endocrine: Denies polyuria or polydipsia. [] Lymphatic: Denies swollen glands. [] Psychiatric: Denies depression or anxiety. [] Heart Score: C/O Chest Pain: No Risk Factors: Risk Factors: DM, Current or recent (<one month) smoker, HTN, HLP, family history of CAD, obesity. Risk Scores: Score 0 - 3: 2.5% MACE over next 6 weeks - Discharge Home Score 4 - 6: 20.3% MACE over next 6 weeks - Admit for Clinical Observation Score 7 - 10: 72.7% MACE over next 6 weeks - Early Invasive Strategies Current Medications: Current Medications Medications (Trade) Dose Ordered Sig/Glenis Start Time Stop Time Status Last Admin Dose Admin Diphenhydramine HCl (Benadryl) 25 mg 1X ONCE 11/23/21 13:45 11/23/21 13:46 Hydromorphone HCl (Dilaudid) 1 mg 1X ONCE 11/23/21 13:45 11/23/21 13:46 Ketorolac Tromethamine (Toradol 30mg Vial) 30 mg 1X ONCE 11/23/21 13:45 11/23/21 13:46 Sodium Chloride 1,000 ml @ 999 mls/hr 1X ONCE 11/23/21 13:45 11/23/21 14:45 Allergies: Allergies: Allergies Coded Allergies Type Severity Reaction Last Updated Verified morphine Allergy Severe swelling, hives 11/23/21 Yes Physical Exam: PE: Constitutional: Well developed, well nourished, mild distress, non-toxic appearance. [] HENT: Normocephalic, atraumatic, bilateral external ears normal, oropharynx moist, no oral exudates, nose normal. [] Eyes: PERRLA, EOMI, conjunctiva normal, no discharge. [] Neck: Normal range of motion, no tenderness, supple, no stridor. [] Cardiovascular:Heart rate regular rhythm, no murmur [] Lungs & Thorax: Bilateral breath sounds clear to auscultation [] Abdomen: Bowel sounds normal, soft, no tenderness, no masses, no pulsatile masses. [] Skin: Warm, dry, no erythema, no rash. [] Back: No tenderness, no CVA tenderness. [] Extremities: No tenderness, no cyanosis, no clubbing, ROM intact, no edema, dorsalis pedis is 2+ in the lower extremities Neurologic: Alert and oriented X 3, normal motor function, normal sensory function, no focal deficits noted. [] Psychologic: Affect normal, judgement normal, mood normal. [] Current Patient Data: Labs: Laboratory Tests Test 11/23/21 13:45 White Blood Count 7.0 x10^3/uL Red Blood Count 3.54 x10^6/uL Hemoglobin 9.9 g/dL Hematocrit 28.8 % Mean Corpuscular Volume 83 fL Mean Corpuscular Hemoglobin 29 pg Mean Corpuscular Hemoglobin Concent 34 g/dL Red Cell Distribution Width 26.1 % Platelet Count 549 x10^3/uL Neutrophils (%) (Auto) 57 % Lymphocytes (%) (Auto) 29 % Monocytes (%) (Auto) 11 % Eosinophils (%) (Auto) 1 % Basophils (%) (Auto) 2 % Neutrophils # (Auto) 4.0 x10^3/uL Lymphocytes # (Auto) 2.0 x10^3/uL Monocytes # (Auto) 0.7 x10^3/uL Eosinophils # (Auto) 0.1 x10^3/uL Basophils # (Auto) 0.1 x10^3/uL Platelet Estimate Pending Absolute Reticulocyte Count 0.139 x10^6/uL Percent Reticulocyte Count 3.9 % Immature Reticulocyte Fraction 0.71 Sodium Level 138 mmol/L Potassium Level 4.4 mmol/L Chloride Level 103 mmol/L Carbon Dioxide Level 24 mmol/L Anion Gap 11 Blood Urea Nitrogen 5 mg/dL Creatinine 0.7 mg/dL Estimated GFR (Cockcroft-Gault) 167.6 Glucose Level 88 mg/dL Calcium Level 8.9 mg/dL Current Medications Medications (Trade) Dose Ordered Sig/Glenis Route PRN Reason Start Time Stop Time Status Last Admin Dose Admin Sodium Chloride 1,000 ml @ 999 mls/hr 1X ONCE IV 11/23/21 13:45 11/23/21 14:45 DC 11/23/21 14:29 Hydromorphone HCl (Dilaudid) 1 mg 1X ONCE IVP 11/23/21 13:45 11/23/21 13:46 DC 11/23/21 14:33 Ketorolac Tromethamine (Toradol 30mg Vial) 30 mg 1X ONCE IVP 11/23/21 13:45 11/23/21 13:46 DC 11/23/21 14:34 Diphenhydramine HCl (Benadryl) 25 mg 1X ONCE PO 11/23/21 13:45 11/23/21 13:46 DC 11/23/21 14:36 Hydromorphone HCl (Dilaudid) 1 mg 1X ONCE IVP 11/23/21 15:00 11/23/21 15:04 DC 11/23/21 15:39 Vital Signs: Vital Signs Date Time Temp Pulse Resp B/P (MAP) Pulse Ox O2 Delivery O2 Flow Rate FiO2 11/23/21 16:02 68 138/87 (104) 94 Room Air 11/23/21 15:39 18 99 Room Air 11/23/21 15:32 65 20 146/102 (117) 99 Room Air 11/23/21 15:02 80 18 137/82 (100) 97 Room Air 11/23/21 14:33 20 96 Room Air 11/23/21 14:32 71 18 133/99 (110) 97 Room Air 11/23/21 14:02 64 20 126/69 (88) 97 Room Air 11/23/21 13:31 97.6 76 20 138/78 (98) 96 Room Air 97.6 Vital Signs Date Time Temp Pulse Resp B/P (MAP) Pulse Ox O2 Delivery O2 Flow Rate FiO2 11/23/21 15:39 18 99 Room Air 11/23/21 14:33 20 96 Room Air 11/23/21 13:31 97.6 76 20 138/78 (98) 96 Room Air 97.6 Vital Signs Date Time Temp Pulse Resp B/P (MAP) Pulse Ox O2 Delivery O2 Flow Rate FiO2 11/23/21 13:31 97.6 76 20 138/78 (98) 96 Room Air 97.6 EKG: EKG: [] Radiology/Procedures: Radiology/Procedures: [] Course & Med Decision Making: Course & Med Decision Making Pertinent Labs and Imaging studies reviewed. (See chart for details) I did discuss with patient the possibility of needing admission since he has failed outpatient therapy with oral opioid medication for management of his sickle cell disease. Patient is requesting to be treated on an outpatient basis at this time because he does want a make his appointment with his primary care provider at the [facility] for management of sickle cell disease. Patient will be given IV fluids, opioid medications, Benadryl, and Toradol to help with pain relief. Patient was informed I will try 2 doses of opioid pain medication and if that is not successful with controlling his pain we will admit patient for further pain control. Patient is agreeable with the plan of care. 1625 patient states his pain levels a 6 out of 10, I did offer admission to this patient for pain control, he is requesting to go home and treat his sickle cell crisis with opioid medication Percocet, that he has at home and also [id number] Motrin. Patient states he has an appointment tomorrow with Dr. Alvaro Tyler at the [facility] for his sickle cell disease, he states he really wants to make that appointment and being admitted would prevent him from doing that. Patient was instructed that he could take 2 Percocets every 6 hours as needed for pain and alternate with Motrin [id number] as needed. Patient is instructed to increase by mouth fluids, he is encouraged to return here to the emergency department for increased shortness of air or chest pain or development of a fever. Patient verbalized understanding of this and agreeable with the plan of care. Dragon Disclaimer: Candelario Disclaimer: This electronic medical record was generated, in whole or in part, using a voice recognition dictation system. Departure Departure Impression: Primary Impression: Sickle cell crisis Disposition: 01 HOME / SELF CARE / HOMELESS Condition: STABLE Referrals: UNKNOWN PCP NAME (PCP) Patient Instructions: Sickle Cell Pain Crisis Additional Instructions: Continue to take [id number] ibuprofen as needed for pain and also previously prescribed Percocet as needed for pain as well Increase by mouth fluids Return to the emergency department for increased chest pain, shortness of air, or development of a fever Follow-up with at the [facility] as previously scheduled tomorrow. ADRY WILSON APRN Nov 23, 2021 13:52
[2021-11-23 14:19] LABS: BASO # 0.1 x10^3/uL (0.0-0.2); BASO % 2 % (0-3); EOS # 0.1 x10^3/uL (0.0-0.7); EOS % 1 % (0-3); HEMATOCRIT 28.8 % (39.0-53.0); HEMOGLOBIN 9.9 g/dL (13.0-17.5); LYMPH % 29 % (24-48); MEAN CORPUSCULAR HEMOGLOBIN 29 pg (25-35); MEAN CORPUSCULAR HGB CONC 34 g/dL (31-37); MEAN CORPUSCULAR VOLUME 83 fL (79-100); MONO # 0.7 x10^3/uL (0.0-1.1); MONO % 11 % (0-9); NEUT % 57 % (31-73); PLATELET COUNT 549 x10^3/uL (140-400); RED BLOOD COUNT 3.47 x10^6/uL (4.30-5.70); RED CELL DISTRIBUTION WIDTH 26.1 % (11.5-14.5)
[2021-11-23 14:41] LABS: CALCIUM 8.9 mg/dL (8.5-10.1); CREATININE 0.7 mg/dL (0.7-1.3); GFR 167.6; POTASSIUM 4.4 mmol/L (3.5-5.1)
[2021-11-23 16:02] VITALS: BP 138/87
[2021-11-23 18:11] LABS: PLT ESTIMATE INCREASED (ADEQUATE); POLYCHROMASIA SLIGHT
[2021-11-23 18:12] LABS: ANISOCYTOSIS MOD; MICROCYTOSIS SLIGHT; OVALOCYTES OCC; POIKILOCYTOSIS MOD; TARGET CELLS OCC
[2021-11-23 18:13] LABS: SICKLE CELLS OCC
== END 2021-11-23 17:06 | disposition home or self-care (01) ==
LOC: ER 11:50
DX: D57.00 Hb-SS disease with crisis, unspecified (principal); Z88.5 Allergy status to narcotic agent
CPT/HCPCS: 36415; 80048; 85025; 85045; 96361; 96374; 96375; 96376; 99284; J1170; J1885; J7030; Q0163

== ENCOUNTER 2022-01-01 22:24 | Emergency (ER) | payer BC, MEDICARE ==
[~2022-01-01] VITALS: Ht 172.7 cm; Wt 86.8 kg
[2022-01-01] MEDS ORDERED: HYDROmorphone 2 MG/ML INJ. IVP ONE (23:15)
[2022-01-01] MEDS ORDERED: IV RINGERS,LACTATED 500ML 500 ML IV ONE (23:15)
--- NOTE | 2022-01-01 23:18 | ED.ADGEN ---
Past Medical History Past Medical History: Sickle Cell Disease, Other Additional Past Medical Histor: sickle cell, vascular necrosis of right hip Past Surgical History: No Surgical History Additional Past Surgical Histo: R KNEE SX Smoking Status: Smoker Current Stat Unkno Alcohol Use: Occasionally Drug Use: None, Marijuana General Adult EDM: Chief Complaint: PAIN CONTROL HPI: HPI: Patient is a 26 year old male with a known history of sickle cell disease. Patient states that he has been having worsening pain in his back and legs for the past few days. Patient states he was recently in [place] [facility] and had to sleep on the heart for which she thinks exacerbated the symptoms. Patient states he has been staying well-hydrated and using his prescribed pain medications. Denies any fevers, headaches, cough, vision changes, vomiting or diarrhea. Review of Systems: Review of Systems: All other systems within normal limits except for as noted in the HPI Current Medications: Current Medications Medications (Trade) Dose Ordered Sig/Glenis Start Time Stop Time Status Last Admin Dose Admin Fentanyl Citrate (Fentanyl 2ml Vial) 100 mcg 1X ONCE 01/02/22 00:15 01/02/22 00:16 DC 01/02/22 00:15 100 MCG Hydromorphone HCl (Dilaudid) 2 mg 1X ONCE 01/01/22 23:15 01/01/22 23:17 DC 01/01/22 23:15 2 MG Ringer's Solution 500 ml @ 500 mls/hr 1X ONCE 01/01/22 23:15 01/02/22 00:14 DC 01/01/22 23:15 500 MLS/HR Allergies: Allergies: Allergies Coded Allergies Type Severity Reaction Last Updated Verified morphine Allergy Severe swelling, hives 11/23/21 Yes Physical Exam: PE: Constitutional: Well developed, well nourished, no acute distress, non-toxic appearance. [] HENT: Normocephalic, atraumatic, bilateral external ears normal, nose normal. [] Eyes: PERRLA, conjunctiva normal, no discharge. [] Neck: No rigidity, supple, no stridor. [] Cardiovascular: Regular rate and rhythm, brisk cap refill [] Lungs & Thorax: Non labored symmetric respirations, no tachypnea or respiratory distress [] Abdomen: Soft, nondistended. Skin: Warm, dry, no erythema, no rash. [] Back: Unremarkable Extremities: No deformities, range of motion grossly intact, no lower extremity edema [] Neurologic: Alert and oriented X 3, no focal deficits noted. [] Psychologic: Affect normal, judgement normal, mood normal. [] Current Patient Data: Labs: Laboratory Tests Test 01/01/22 23:19 White Blood Count 6.8 x10^3/uL (4.0-11.0) Red Blood Count 3.72 x10^6/uL (4.30-5.70) L Hemoglobin 10.6 g/dL (13.0-17.5) L Hematocrit 30.0 % (39.0-53.0) L Mean Corpuscular Volume 81 fL (79-100) Mean Corpuscular Hemoglobin 29 pg (25-35) Mean Corpuscular Hemoglobin Concent 35 g/dL (31-37) Red Cell Distribution Width 24.6 % (11.5-14.5) H Platelet Count 384 x10^3/uL (140-400) Neutrophils (%) (Auto) 42 % (31-73) Lymphocytes (%) (Auto) 43 % (24-48) Monocytes (%) (Auto) 10 % (0-9) H Eosinophils (%) (Auto) 5 % (0-3) H Basophils (%) (Auto) 1 % (0-3) Neutrophils # (Auto) 2.8 x10^3/uL (1.8-7.7) Lymphocytes # (Auto) 2.9 x10^3/uL (1.0-4.8) Monocytes # (Auto) 0.7 x10^3/uL (0.0-1.1) Eosinophils # (Auto) 0.3 x10^3/uL (0.0-0.7) Basophils # (Auto) 0.1 x10^3/uL (0.0-0.2) Platelet Estimate Adequate (ADEQUATE) Giant Platelets Occ Polychromasia Slight Hypochromasia Slight Poikilocytosis Mod Anisocytosis Mod Sickle Cells Occ Ovalocytes Few Absolute Reticulocyte Count 0.097 x10^6/uL (0.020-0.120) Percent Reticulocyte Count 2.6 % (0.5-2.3) H Immature Reticulocyte Fraction 0.67 (0.20-0.60) H Sodium Level 142 mmol/L (136-145) Potassium Level 3.6 mmol/L (3.5-5.1) Chloride Level 105 mmol/L (98-107) Carbon Dioxide Level 25 mmol/L (21-32) Anion Gap 12 (6-14) Blood Urea Nitrogen 3 mg/dL (8-26) L Creatinine 0.6 mg/dL (0.7-1.3) L Estimated GFR (Cockcroft-Gault) 200.3 BUN/Creatinine Ratio 5 (6-20) L Glucose Level 100 mg/dL (70-99) H Calcium Level 9.2 mg/dL (8.5-10.1) Total Bilirubin 2.8 mg/dL (0.2-1.0) H Aspartate Amino Transferase (AST) 50 U/L (15-37) H Alanine Aminotransferase (ALT) 30 U/L (16-63) Alkaline Phosphatase 131 U/L (46-116) H Total Protein 8.5 g/dL (6.4-8.2) H Albumin 4.3 g/dL (3.4-5.0) Albumin/Globulin Ratio 1.0 (1.0-1.7) Laboratory Tests 01/01/22 23:19 Laboratory Tests 01/01/22 23:19 Vital Signs: Vital Signs Date Time Temp Pulse Resp B/P (MAP) Pulse Ox O2 Delivery O2 Flow Rate FiO2 01/02/22 00:15 Room Air 01/01/22 23:15 18 01/01/22 23:10 98.2 89 146/89 (108) 94 98.2 EKG: EKG: [] Heart Score: C/O Chest Pain: No Risk Factors: Risk Factors: DM, Current or recent (<one month) smoker, HTN, HLP, family history of CAD, obesity. Risk Scores: Score 0 - 3: 2.5% MACE over next 6 weeks - Discharge Home Score 4 - 6: 20.3% MACE over next 6 weeks - Admit for Clinical Observation Score 7 - 10: 72.7% MACE over next 6 weeks - Early Invasive Strategies Radiology/Procedures: Radiology/Procedures: [] Course & Med Decision Making: Course & Med Decision Making Pertinent Labs and Imaging studies reviewed. (See chart for details) [] Candelario Disclaimer: Candelario Disclaimer: This electronic medical record was generated, in whole or in part, using a voice recognition dictation system. Departure Departure Impression: Primary Impression: Sickle cell pain crisis Disposition: HOME / SELF CARE / HOMELESS Condition: STABLE Referrals: UNKNOWN PCP NAME (PCP) Patient Instructions: Pain Medicine Instructions Scripts Oxycodone Hcl (OXYCODONE HCL IMMED.RELEASE ) 5 Mg Tablet 5 MG PO PRN Q6HRS PRN for PAIN for 3 Days, #12 TAB 0 Refills Prov: LEE ANN PINA MD 01/02/22 LEE ANN PINA MD January 01, 2022 23:18
[2022-01-01 23:26] LABS: BASO # 0.1 x10^3/uL (0.0-0.2); BASO % 1 % (0-3); EOS # 0.3 x10^3/uL (0.0-0.7); EOS % 5 % (0-3); HEMOGLOBIN 10.6 g/dL (13.0-17.5); LYMPH # 2.9 x10^3/uL (1.0-4.8); LYMPH % 43 % (24-48); MEAN CORPUSCULAR HEMOGLOBIN 29 pg (25-35); MEAN CORPUSCULAR HGB CONC 35 g/dL (31-37); MEAN CORPUSCULAR VOLUME 81 fL (79-100); MONO # 0.7 x10^3/uL (0.0-1.1); MONO % 10 % (0-9); NEUT # 2.8 x10^3/uL (1.8-7.7); NEUT % 42 % (31-73); PLATELET COUNT 384 x10^3/uL (140-400); RED BLOOD COUNT 3.69 x10^6/uL (4.30-5.70); RED CELL DISTRIBUTION WIDTH 24.6 % (11.5-14.5); WHITE BLOOD COUNT 6.8 x10^3/uL (4.0-11.0)
[2022-01-01 23:41] LABS: CALCIUM 9.2 mg/dL (8.5-10.1); CREATININE 0.6 mg/dL (0.7-1.3); GFR 200.3; POTASSIUM 3.6 mmol/L (3.5-5.1)
[2022-01-01 23:49] LABS: ALBUMIN 4.3 g/dL (3.4-5.0); TOTAL BILIRUBIN 2.8 mg/dL (0.2-1.0); TOTAL PROTEIN 8.5 g/dL (6.4-8.2)
[2022-01-01 23:56] LABS: ANISOCYTOSIS MOD; HYPOCHROMIA SLIGHT; PLT ESTIMATE ADEQUATE (ADEQUATE); POIKILOCYTOSIS MOD
[2022-01-01 23:57] LABS: OVALOCYTES FEW; POLYCHROMASIA SLIGHT; SICKLE CELLS OCC
[2022-01-02] MEDS ORDERED: fentaNYL PF VIAL 100 MCG/2 ML VIAL IVP ONE ×2 (00:15→01:15)
[2022-01-02] MEDS ORDERED: OXYC5TAB4 PO (01:03)
[2022-01-02 01:36] VITALS: BP 111/66
== END 2022-01-02 02:02 | disposition home or self-care (01) ==
LOC: ER 22:24
DX: D57.00 Hb-SS disease with crisis, unspecified (principal); F17.200 Nicotine dependence, unspecified, uncomplicated
CPT/HCPCS: 36415; 80053; 85025; 85045; 96374; 96375; 96376; 99284; J1170; J3010; J7120

== ENCOUNTER 2022-01-06 23:02 | Emergency (ER) | payer MEDICARE ==
[~2022-01-06] VITALS: Ht 180.3 cm; Wt 88.6 kg
[2022-01-06] MEDS ORDERED: HYDROmorphone 2 MG/ML INJ. IVP ONE (23:30)
[2022-01-06] MEDS ORDERED: IV NORMAL SALINE 1000ML BAG 1,000 ML IV ONE (23:30)
--- NOTE | 2022-01-07 00:39 | PHYS DOC ---
Past Medical History Past Medical History: Sickle Cell Disease, Other Additional Past Medical Histor: sickle cell, vascular necrosis of right hip Past Surgical History: No Surgical History Additional Past Surgical Histo: R KNEE SX Smoking Status: Current Some Day Smoker Alcohol Use: Occasionally Drug Use: None, Marijuana General Adult EDM: Chief Complaint: BACK PAIN OR INJURY HPI: HPI: Patient is a 26 year old old male presents with sickle cell pain. States that he is having pain in his both legs and lower back which is typical of his sickle cell pain. History of sickle cell disease. Denies any chest pain or shortness of breath. No fever or chills. No hematuria. No vomiting or diarrhea. Review of Systems: Review of Systems: Constitutional: Denies fever or chills. [] Eyes: Denies change in visual acuity. [] HENT: Denies nasal congestion or sore throat. [] Respiratory: Denies cough or shortness of breath. [] Cardiovascular: Denies chest pain or edema. [] GI: Denies abdominal pain, nausea, vomiting, bloody stools or diarrhea. [] : Denies dysuria. [] Musculoskeletal: Positive for back pain and bilateral lower leg pain, no saddle anesthesia or leg weakness] Integument: Denies rash. [] Neurologic: Denies headache, focal weakness or sensory changes. [] Endocrine: Denies polyuria or polydipsia. [] Lymphatic: Denies swollen glands. [] Psychiatric: Denies depression or anxiety. [] Heart Score: C/O Chest Pain: No Risk Factors: Risk Factors: DM, Current or recent (<one month) smoker, HTN, HLP, family history of CAD, obesity. Risk Scores: Score 0 - 3: 2.5% MACE over next 6 weeks - Discharge Home Score 4 - 6: 20.3% MACE over next 6 weeks - Admit for Clinical Observation Score 7 - 10: 72.7% MACE over next 6 weeks - Early Invasive Strategies Current Medications: Current Medications Medications (Trade) Dose Ordered Sig/Glenis Start Time Stop Time Status Last Admin Dose Admin Hydromorphone HCl (Dilaudid) 1 mg PRN Q2HR ONCE 01/06/22 23:30 01/06/22 23:31 DC 01/07/22 00:06 1 MG Sodium Chloride 1,000 ml @ 1,000 mls/hr 1X ONCE 01/06/22 23:30 01/07/22 00:29 DC 01/07/22 00:07 1,000 MLS/HR Allergies: Allergies: Allergies Coded Allergies Type Severity Reaction Last Updated Verified morphine Allergy Severe swelling, hives 01/06/22 Yes Physical Exam: PE: Constitutional: Well developed, well nourished, no acute distress, non-toxic philipp earance. [] HENT: Normocephalic, atraumatic, bilateral external ears normal, oropharynx moist, no oral exudates, nose normal. [] Eyes: PERRLA, EOMI, conjunctiva normal, no discharge. [] Neck: Normal range of motion, no tenderness, supple, no stridor. [] Cardiovascular:Heart rate regular rhythm, no murmur [] Lungs & Thorax: Bilateral breath sounds clear to auscultation [] Abdomen: Bowel sounds normal, soft, no tenderness, no masses, no pulsatile masses. [] Skin: Warm, dry, no erythema, no rash. [] Back: No tenderness, no CVA tenderness. [] Extremities: No tenderness, no cyanosis, no clubbing, ROM intact, no edema. [] Neurologic: Alert and oriented X 3, normal motor function, normal sensory function, no focal deficits noted. [] Psychologic: Affect normal, judgement normal, mood normal. [] Current Patient Data: Vital Signs: Vital Signs Date Time Temp Pulse Resp B/P (MAP) Pulse Ox O2 Delivery O2 Flow Rate FiO2 01/07/22 00:06 20 96 Room Air EKG: EKG: [] Radiology/Procedures: Radiology/Procedures: [] Course & Med Decision Making: Course & Med Decision Making Pertinent Labs and Imaging studies reviewed. (See chart for details) Patient treated for sickle cell pain. Feels better after 2 rounds of medications and normal saline Dragon Disclaimer: Dragon Disclaimer: This electronic medical record was generated, in whole or in part, using a voice recognition dictation system. Departure Departure Impression: Primary Impression: Sickle cell pain crisis Disposition: HOME / SELF CARE / HOMELESS Condition: IMPROVED Referrals: UNKNOWN PCP NAME (PCP) Patient Instructions: Sickle Cell Pain Crisis, [id number] RUBEN BERRY MD January 07, 2022 00:39
[2022-01-07] MEDS ORDERED: HYDROmorphone 2 MG/ML INJ. IVP ONE (01:30)
[2022-01-07 01:51] VITALS: BP 117/66
== END 2022-01-07 02:05 | disposition home or self-care (01) ==
LOC: ER 23:02
DX: D57.00 Hb-SS disease with crisis, unspecified (principal); F17.200 Nicotine dependence, unspecified, uncomplicated; Z88.5 Allergy status to narcotic agent
CPT/HCPCS: 96361; 96374; 96376; 99284; J1170; J7030

== ENCOUNTER 2022-01-13 16:09 | Emergency (ER) | payer BC, MEDICARE ==
[~2022-01-13] VITALS: Ht 177.8 cm; Wt 88.0 kg
[2022-01-13] MEDS ORDERED: ONDANSETRON PF 4 MG/2 ML VIAL. IVP ONE ×2 (16:45→19:30)
[2022-01-13] MEDS ORDERED: IV NORMAL SALINE 1000ML BAG 1,000 ML IV ONE (16:45)
[2022-01-13] MEDS ORDERED: fentaNYL PF VIAL 100 MCG/2 ML VIAL IVP ONE ×3 (16:45→19:30)
[2022-01-13 17:24] LABS: BASO % 1 % (0-3); EOS # 0.3 x10^3/uL (0.0-0.7); EOS % 5 % (0-3); HEMATOCRIT 26.6 % (39.0-53.0); HEMOGLOBIN 9.5 g/dL (13.0-17.5); LYMPH # 2.8 x10^3/uL (1.0-4.8); LYMPH % 47 % (24-48); MEAN CORPUSCULAR HEMOGLOBIN 29 pg (25-35); MEAN CORPUSCULAR HGB CONC 36 g/dL (31-37); MEAN CORPUSCULAR VOLUME 82 fL (79-100); MONO # 0.7 x10^3/uL (0.0-1.1); MONO % 12 % (0-9); NEUT # 2.2 x10^3/uL (1.8-7.7); NEUT % 36 % (31-73); PLATELET COUNT 324 x10^3/uL (140-400); RED BLOOD COUNT 3.26 x10^6/uL (4.30-5.70); RED CELL DISTRIBUTION WIDTH 24.8 % (11.5-14.5)
[2022-01-13 17:38] LABS: CALCIUM 9.1 mg/dL (8.5-10.1); CREATININE 0.5 mg/dL (0.7-1.3); GFR 247.2; POTASSIUM 4.6 mmol/L (3.5-5.1)
[2022-01-13 17:47] LABS: ALBUMIN 3.9 g/dL (3.4-5.0); ALBUMIN/GLOBULIN RATIO 1.1 (1.0-1.7); TOTAL PROTEIN 7.5 g/dL (6.4-8.2)
[2022-01-13] MEDS ORDERED: diphenhydrAMINE 50 MG/ML VIAL IVP ONE (18:00)
[2022-01-13 18:32] LABS: PLT ESTIMATE ADEQUATE (ADEQUATE); POLYCHROMASIA SLIGHT
[2022-01-13 18:33] LABS: ANISOCYTOSIS MOD; HYPOCHROMIA SLIGHT; SICKLE CELLS OCC
[2022-01-13] MEDS ORDERED: OXYC15TA3 PO (20:07)
--- NOTE | 2022-01-13 20:08 | PHYS DOC ---
Past Medical History Past Medical History: Sickle Cell Disease, Other Additional Past Medical Histor: sickle cell, vascular necrosis of right hip Past Surgical History: Other Additional Past Surgical Histo: vascular necrosis of right hip Smoking Status: Never Smoker Alcohol Use: None Drug Use: None, Marijuana General Adult EDM: Chief Complaint: GENERALIZED BODY ACHES HPI: HPI: Patient is a 26 year old male with history of sickle cell who presents to the ED today complaining of 8 out of 10 low back pain and bilateral lower extremity pain consistent with his sickle cell. Patient states symptoms have been going on for 3 days. He states he is out of his oxycodone. Denies any fever, coughing or congestion. He states he has an appointment with his sickle cell doctor at the beginning of January Review of Systems: Review of Systems: Constitutional: Denies fever or chills. [] Eyes: Denies change in visual acuity. [] HENT: Denies nasal congestion or sore throat. [] Respiratory: Denies cough or shortness of breath. [] Cardiovascular: Denies chest pain or edema. [] GI: Denies abdominal pain, nausea, vomiting, bloody stools or diarrhea. [] : Denies dysuria. [] Musculoskeletal: Reports low back pain, lower extremity pain Integument: Denies rash. [] Neurologic: Denies headache, focal weakness or sensory changes. [] Psychiatric: Denies depression or anxiety. [] Heart Score: C/O Chest Pain: N/A Risk Factors: Risk Factors: DM, Current or recent (<one month) smoker, HTN, HLP, family history of CAD, obesity. Risk Scores: Score 0 - 3: 2.5% MACE over next 6 weeks - Discharge Home Score 4 - 6: 20.3% MACE over next 6 weeks - Admit for Clinical Observation Score 7 - 10: 72.7% MACE over next 6 weeks - Early Invasive Strategies Current Medications: Current Medications Medications (Trade) Dose Ordered Sig/Glenis Start Time Stop Time Status Last Admin Dose Admin Diphenhydramine HCl (Benadryl) 25 mg 1X ONCE 01/13/22 18:00 01/13/22 18:01 DC 01/13/22 18:27 25 MG Fentanyl Citrate (Fentanyl 2ml Vial) 50 mcg 1X ONCE 01/13/22 19:30 01/13/22 19:31 DC Ondansetron HCl (Zofran) 4 mg 1X ONCE 01/13/22 19:30 01/13/22 19:31 DC Sodium Chloride 1,000 ml @ 1,000 mls/hr 1X ONCE 01/13/22 16:45 01/13/22 17:44 DC 01/13/22 17:23 1,000 MLS/HR Allergies: Allergies: Allergies Coded Allergies Type Severity Reaction Last Updated Verified morphine Allergy Severe swelling, hives 01/06/22 Yes Physical Exam: PE: Constitutional: Well developed, well nourished, no acute distress, non-toxic philipp earance. [] HENT: Normocephalic, atraumatic, bilateral external ears normal, oropharynx moist, no oral exudates, nose normal. [] Eyes: PERRLA, EOMI, conjunctiva normal, no discharge. [] Neck: Normal range of motion, no tenderness, supple, no stridor. [] Cardiovascular:Heart rate regular rhythm, no murmur [] Lungs & Thorax: Bilateral breath sounds clear to auscultation [] Abdomen: Bowel sounds normal, soft, no tenderness, no masses, no pulsatile masses. [] Skin: Warm, dry, no erythema, no rash. [] Back: No tenderness, no CVA tenderness. [] Extremities: No tenderness, no cyanosis, no clubbing, ROM intact, no edema. [] Neurologic: Alert and oriented X 3, normal motor function, normal sensory function, no focal deficits noted. [] Psychologic: Affect normal, judgement normal, mood normal. [] Current Patient Data: Labs: Laboratory Tests Test 01/13/22 17:17 White Blood Count 6.0 x10^3/uL (4.0-11.0) Red Blood Count 3.30 x10^6/uL (4.30-5.70) L Hemoglobin 9.5 g/dL (13.0-17.5) L Hematocrit 26.6 % (39.0-53.0) L Mean Corpuscular Volume 82 fL (79-100) Mean Corpuscular Hemoglobin 29 pg (25-35) Mean Corpuscular Hemoglobin Concent 36 g/dL (31-37) Red Cell Distribution Width 24.8 % (11.5-14.5) H Platelet Count 324 x10^3/uL (140-400) Neutrophils (%) (Auto) 36 % (31-73) Lymphocytes (%) (Auto) 47 % (24-48) Monocytes (%) (Auto) 12 % (0-9) H Eosinophils (%) (Auto) 5 % (0-3) H Basophils (%) (Auto) 1 % (0-3) Neutrophils # (Auto) 2.2 x10^3/uL (1.8-7.7) Lymphocytes # (Auto) 2.8 x10^3/uL (1.0-4.8) Monocytes # (Auto) 0.7 x10^3/uL (0.0-1.1) Eosinophils # (Auto) 0.3 x10^3/uL (0.0-0.7) Basophils # (Auto) 0.0 x10^3/uL (0.0-0.2) Platelet Estimate Adequate (ADEQUATE) Large Platelets Few Polychromasia Slight Hypochromasia Slight Anisocytosis Mod Sickle Cells Occ Absolute Reticulocyte Count 0.167 x10^6/uL (0.020-0.120) Percent Reticulocyte Count 5.0 % (0.5-2.3) H Immature Reticulocyte Fraction 0.73 (0.20-0.60) H Sodium Level 142 mmol/L (136-145) Potassium Level 4.6 mmol/L (3.5-5.1) Chloride Level 107 mmol/L (98-107) Carbon Dioxide Level 27 mmol/L (21-32) Anion Gap 8 (6-14) Blood Urea Nitrogen 4 mg/dL (8-26) L Creatinine 0.5 mg/dL (0.7-1.3) L Estimated GFR (Cockcroft-Gault) 247.2 BUN/Creatinine Ratio 8 (6-20) Glucose Level 85 mg/dL (70-99) Calcium Level 9.1 mg/dL (8.5-10.1) Total Bilirubin 2.0 mg/dL (0.2-1.0) H Aspartate Amino Transferase (AST) 40 U/L (15-37) H Alanine Aminotransferase (ALT) 18 U/L (16-63) Alkaline Phosphatase 119 U/L (46-116) H Total Protein 7.5 g/dL (6.4-8.2) Albumin 3.9 g/dL (3.4-5.0) Albumin/Globulin Ratio 1.1 (1.0-1.7) Laboratory Tests 01/13/22 17:17 Laboratory Tests 01/13/22 17:17 Vital Signs: Vital Signs Date Time Temp Pulse Resp B/P (MAP) Pulse Ox O2 Delivery O2 Flow Rate FiO2 01/13/22 18:28 94 01/13/22 17:31 98.3 70 18 136/81 (99) Room Air 98.3 EKG: EKG: [] Radiology/Procedures: Radiology/Procedures: [] Course & Med Decision Making: Course & Med Decision Making Pertinent Labs and Imaging studies reviewed. (See chart for details) This is a 26-year-old male patient well-known to this ED presenting today with sickle cell pain. Hemoglobin 9.5 with hematocrit of 26.6, absolute reticulocyte 0.167, percent reticulocyte 5.0, immature reticulocyte fraction 0.70, CMP with no acute findings. Patient's pain is well controlled in the ED. He is requesting to go home. He was given prescription for oxycodone which he ran out. We will follow-up with his own doctor early January. Candelario Disclaimer: Candelario Disclaimer: This electronic medical record was generated, in whole or in part, using a voice recognition dictation system. Departure Departure Impression: Primary Impression: Sickle cell anemia with pain Disposition: 01 HOME / SELF CARE / HOMELESS Condition: STABLE Referrals: UNKNOWN PCP NAME (PCP) follow up with your doctor this week Patient Instructions: Sickle Cell Anemia-Brief Additional Instructions: You were evaluated in the emergency room. We highly recommend you follow-up with your doctor in the course of this week. Please ensure you are taking your iron pills Scripts Oxycodone Hcl (OXYCODONE HCL IMMED.RELEASE) 15 Mg Tablet 15 MG PO PRN Q6HRS PRN for PAIN, #20 TAB 0 Refills Prov: ROMY MEDEL APRN 01/13/22 ROMY MEDEL APRN January 13, 2022 20:08
[2022-01-13 20:22] VITALS: BP 133/81
== END 2022-01-13 20:28 | disposition home or self-care (01) ==
LOC: ER 16:09
DX: D57.00 Hb-SS disease with crisis, unspecified (principal); Z88.5 Allergy status to narcotic agent
CPT/HCPCS: 36415; 80053; 85025; 85045; 96361; 96374; 96375; 96376; 99285; J1200; J2405; J3010; J7030

== ENCOUNTER 2022-01-18 16:19 | Emergency (ER) | payer BC, MEDICARE ==
[~2022-01-18] VITALS: Ht 177.8 cm; Wt 81.0 kg
[2022-01-18] MEDS ORDERED: ONDANSETRON PF 4 MG/2 ML VIAL. IVP ONE (17:30)
[2022-01-18] MEDS ORDERED: fentaNYL PF VIAL 100 MCG/2 ML VIAL IVP ONE ×2 (17:30→19:00)
[2022-01-18] MEDS ORDERED: diphenhydrAMINE 50 MG/ML VIAL IVP ONE (17:30)
[2022-01-18 17:47] LABS: BASO # 0.1 x10^3/uL (0.0-0.2); BASO % 2 % (0-3); EOS # 0.2 x10^3/uL (0.0-0.7); EOS % 2 % (0-3); HEMOGLOBIN 10.2 g/dL (13.0-17.5); LYMPH # 1.8 x10^3/uL (1.0-4.8); LYMPH % 25 % (24-48); MEAN CORPUSCULAR HEMOGLOBIN 29 pg (25-35); MEAN CORPUSCULAR HGB CONC 36 g/dL (31-37); MEAN CORPUSCULAR VOLUME 81 fL (79-100); MONO # 0.9 x10^3/uL (0.0-1.1); MONO % 12 % (0-9); NEUT # 4.2 x10^3/uL (1.8-7.7); NEUT % 58 % (31-73); PLATELET COUNT 332 x10^3/uL (140-400); RED BLOOD COUNT 3.46 x10^6/uL (4.30-5.70); RED CELL DISTRIBUTION WIDTH 24.9 % (11.5-14.5); WHITE BLOOD COUNT 7.2 x10^3/uL (4.0-11.0)
[2022-01-18 17:57] LABS: CALCIUM 9.2 mg/dL (8.5-10.1); CREATININE 0.6 mg/dL (0.7-1.3); GFR 200.3; POTASSIUM 3.7 mmol/L (3.5-5.1)
[2022-01-18 18:03] LABS: ALBUMIN 4.5 g/dL (3.4-5.0); ALBUMIN/GLOBULIN RATIO 1.1 (1.0-1.7); TOTAL BILIRUBIN 2.6 mg/dL (0.2-1.0); TOTAL PROTEIN 8.5 g/dL (6.4-8.2)
[2022-01-18 18:18] LABS: PLT ESTIMATE ADEQUATE (ADEQUATE)
[2022-01-18 18:21] LABS: ANISOCYTOSIS PRESENT; POIKILOCYTOSIS PRESENT
[2022-01-18 18:22] LABS: OVALOCYTES PRESENT
[2022-01-18 18:23] LABS: SCHISTOCYTES FEW
[2022-01-18 18:27] LABS: HOWELL-JOLLY BODIES PRESENT; SICKLE CELLS PRESENT
--- NOTE | 2022-01-18 18:52 | PHYS DOC ---
Past Medical History Past Medical History: Sickle Cell Disease, Other Additional Past Medical Histor: sickle cell, vascular necrosis of right hip Past Surgical History: Other Additional Past Surgical Histo: vascular necrosis of right hip Smoking Status: Never Smoker Alcohol Use: None Drug Use: None, Marijuana General Adult EDM: Chief Complaint: PAIN CONTROL HPI: HPI: Patient is a 26 year old male well-known to the department with PMHx that includes sickle cell anemia who presents with low back pain, typical for his pain crises. Patient denies fever, chills, injury, bowel or bladder incontinence. Review of Systems: Review of Systems: ROS negative or noncontributory except as mentioned in HPI. Heart Score: C/O Chest Pain: No Current Medications: Current Medications Medications (Trade) Dose Ordered Sig/Glenis Start Time Stop Time Status Last Admin Dose Admin Diphenhydramine HCl (Benadryl) 50 mg 1X ONCE 01/18/22 17:30 01/18/22 17:33 DC 01/18/22 17:50 50 MG Fentanyl Citrate (Fentanyl 2ml Vial) 75 mcg 1X ONCE 01/18/22 17:30 01/18/22 17:33 DC 01/18/22 17:50 75 MCG Ondansetron HCl (Zofran) 4 mg 1X ONCE 01/18/22 17:30 01/18/22 17:33 DC 01/18/22 17:50 4 MG Allergies: Allergies: Allergies Coded Allergies Type Severity Reaction Last Updated Verified morphine Allergy Severe swelling, hives 01/06/22 Yes Physical Exam: PE: Constitutional: Well developed, well nourished, no acute distress, non-toxic appearance. HENT: Normocephalic, atraumatic, bilateral external ears normall. Eyes: EOMI, conjunctiva normal, no discharge. Neck: Normal range of motion, no stridor. Thorax: Equal thoracic expansion, no increased work of breathing. Skin: Warm, dry, no erythema, no rash. Back: No bony tenderness, no CVA tenderness. Extremities: No tenderness, no cyanosis, no clubbing, ROM intact, no edema. Neurologic: Alert and oriented x4, normal motor function, normal sensory function, no focal deficits noted. Current Patient Data: Labs: Laboratory Tests Test 01/18/22 17:39 White Blood Count 7.2 x10^3/uL (4.0-11.0) Red Blood Count 3.45 x10^6/uL (4.30-5.70) L Hemoglobin 10.2 g/dL (13.0-17.5) L Hematocrit 28.0 % (39.0-53.0) L Mean Corpuscular Volume 81 fL (79-100) Mean Corpuscular Hemoglobin 29 pg (25-35) Mean Corpuscular Hemoglobin Concent 36 g/dL (31-37) Red Cell Distribution Width 24.9 % (11.5-14.5) H Platelet Count 332 x10^3/uL (140-400) Neutrophils (%) (Auto) 58 % (31-73) Lymphocytes (%) (Auto) 25 % (24-48) Monocytes (%) (Auto) 12 % (0-9) H Eosinophils (%) (Auto) 2 % (0-3) Basophils (%) (Auto) 2 % (0-3) Neutrophils # (Auto) 4.2 x10^3/uL (1.8-7.7) Lymphocytes # (Auto) 1.8 x10^3/uL (1.0-4.8) Monocytes # (Auto) 0.9 x10^3/uL (0.0-1.1) Eosinophils # (Auto) 0.2 x10^3/uL (0.0-0.7) Basophils # (Auto) 0.1 x10^3/uL (0.0-0.2) Platelet Estimate Adequate (ADEQUATE) Large Platelets Present Poikilocytosis Present Anisocytosis Present Sickle Cells Present Ovalocytes Present [place] Bodies Present Schistocytes Few Absolute Reticulocyte Count 0.129 x10^6/uL (0.020-0.120) Percent Reticulocyte Count 3.7 % (0.5-2.3) H Immature Reticulocyte Fraction 0.64 (0.20-0.60) H Sodium Level 140 mmol/L (136-145) Potassium Level 3.7 mmol/L (3.5-5.1) Chloride Level 106 mmol/L (98-107) Carbon Dioxide Level 21 mmol/L (21-32) Anion Gap 13 (6-14) Blood Urea Nitrogen 4 mg/dL (8-26) L Creatinine 0.6 mg/dL (0.7-1.3) L Estimated GFR (Cockcroft-Gault) 200.3 BUN/Creatinine Ratio 7 (6-20) Glucose Level 94 mg/dL (70-99) Calcium Level 9.2 mg/dL (8.5-10.1) Total Bilirubin 2.6 mg/dL (0.2-1.0) H Aspartate Amino Transferase (AST) 56 U/L (15-37) H Alanine Aminotransferase (ALT) 48 U/L (16-63) Alkaline Phosphatase 123 U/L (46-116) H Total Protein 8.5 g/dL (6.4-8.2) H Albumin 4.5 g/dL (3.4-5.0) Albumin/Globulin Ratio 1.1 (1.0-1.7) Laboratory Tests 01/18/22 17:39 Laboratory Tests 01/18/22 17:39 Vital Signs: Vital Signs Date Time Temp Pulse Resp B/P (MAP) Pulse Ox O2 Delivery O2 Flow Rate FiO2 01/18/22 20:34 70 18 113/69 (84) 98 Room Air 01/18/22 20:15 Room Air 01/18/22 19:10 98 Room Air 01/18/22 16:30 99.3 91 16 139/83 (101) 96 Room Air 99.3 Course & Med Decision Making: Course & Med Decision Making Pertinent Labs and Imaging studies reviewed. (See chart for details) Patient is a 26-year-old male with sickle cell anemia who presents with low back pain, consistent with typical pain crisis. Patient was initially treated with IV fentanyl, which gave him some improvement in pain. He requested pain medicine again, so he was given another dose of fentanyl. On reevaluation, patient continues to be in pain. Gave him 1 IV Dilaudid, which significantly improved his pain. Patient states that he has oxycodone 15/325 at home. He did not take any today, as he just got off work. Patient reports he has been working "a lot more lately." Counseled patient on overexertion and correlation with more frequent pain crises over the past couple of months. Return precaut ions were provided. Patient understands and is agreeable to discharge plan. Dragon Disclaimer: Dragon Disclaimer: This electronic medical record was generated, in whole or in part, using a voice recognition dictation system. Departure Departure Impression: Primary Impression: Sickle cell pain crisis Disposition: HOME / SELF CARE / HOMELESS Condition: IMPROVED Referrals: UNKNOWN PCP NAME (PCP) Patient Instructions: Sickle Cell Pain Crisis, [id number] Additional Instructions: EMERGENCY DEPARTMENT GENERAL DISCHARGE INSTRUCTIONS Thank you for coming to [facility] Emergency Department (ED) today and trusting us with you care. We trust that you had a positive experience in our Emergency Department. If you wish to speak to the department management, you may call the director at . YOUR FOLLOW UP INSTRUCTIONS ARE FOLLOWS: 1. Follow up with your primary care doctor. If you do not have a primary doctor, please ask for a resource list of physicians or clinics that may be able to assist you with follow up care. 2. The emergency provider has interpreted your imaging studies, if any were ordered. The radiology histology specialist also reviewed them. If there is a change in the findings, you will be notified in 48 hours when at all possible. 3. If a lab test or culture has been done, your results will be reviewed and you will be notified if you need a change in treatment. 4. Follow instructions verbalized to you and refer to the printouts if needed. ADDITIONAL INSTRUCTIONS AND INFORMATION: 1. Your care today has been supervised by a physician who is specially trained in emergency care. Many problems require more than one evaluation for a complete diagnosis and treatment. We recommend that you schedule your follow up appointment as recommended to ensure complete treatment of you illness or injury. If you are unable to obtain follow up care and continue to have a problem, or if your condition worsens, we recommend that you return to the ED. 2. We are not able to safely determine your condition over the phone nor are we able to give sound medical advice over the phone. For these safety reasons, if you call for medical advice we will ask you to come to the ED for further evaluation. 3. If you have any questions regarding these discharge instructions please call the ED at . SAFETY INFORMATION: In the interest of safety, wellness, and injury prevention; we encourage you to wear your seat belt, if you smoke; quite smoking, and we encourage family to use a protective helmet for bicycling and other sporting events that present an increased risk for head injury. IF YOUR SYMPTOMS WORSEN OR NEW SYMPTOMS DEVELOP, OR YOU HAVE CONCERNS ABOUT YOUR CONDITION; OR IF YOUR CONDITION WORSENS WHILE YOU ARE WAITING FOR YOUR FOLLOW UP APPOINTMENT; EITHER CONTACT YOUR PRIMARY CARE DOCTOR, THE PHYSICIAN WHOSE NAME AND NUMBER YOU WERE GIVEN, OR RETURN TO THE ED IMMEDIATELY. GUERA NOVA January 18, 2022 18:52
[2022-01-18] MEDS ORDERED: HYDROmorphone 2 MG/ML INJ. IVP ONE (20:15)
[2022-01-18 20:34] VITALS: BP 113/69
== END 2022-01-18 20:42 | disposition home or self-care (01) ==
LOC: ER 16:19
DX: D57.00 Hb-SS disease with crisis, unspecified (principal); Z88.5 Allergy status to narcotic agent
CPT/HCPCS: 36415; 80053; 85025; 85045; 96374; 96375; 96376; 99284; J1170; J1200; J2405; J3010